=== PATIENT | female | born 1965 | race Hispanic/Latino ===

== ENCOUNTER 2018-08-01 01:51 | Emergency (ER) | payer SELFPAY ==
[2018-08-01] MEDS ORDERED: ONDANSETRON 4 MG/2 ML VIAL ONE (02:27)
[2018-08-01 02:42] LABS: Absolute Lymphocytes (CBC) 1.9 K/uL (0.7-4.9); Absolute Monocytes 0.8 K/uL (0.1-1.3); Absolute Neutrophil 7.1 K/uL (1.8-8.0); Basophils % 0.5 % (0-1.3); Eosinophils % 2.3 % (0-4.4); Hematocrit 45.8 % (36.0-45.0); Lymphocytes % 19.2 % (15.3-44.8); MPV 10.3 fL (7.6-11.3); Monocytes % 7.5 % (3.3-12.3); RBC Red Blood Cell Count 5.41 M/uL (3.86-4.86)
[2018-08-01] MEDS ORDERED: MEPERIDINE HCL 25 MG/0.5 ML ONE (02:44)
[2018-08-01] MEDS ORDERED: NA CHLORIDE 0.9% 500 ML ONE (02:45)
[2018-08-01] MEDS ORDERED: METOCLOPRAMIDE 10 MG/2mL INJ ONE (02:45)
[2018-08-01 02:59] LABS: BUN Blood Urea Nitrogen 20 mg/dL (7-18); Bicarbonate 23 mmol/L (21-32); Glucose Level 223 mg/dL (74-106); Sodium Level 139 mmol/L (136-145); Troponin (Emerg Dept Use Only) < 0.02 ng/mL (0.0-0.045)
--- OUTSIDE RECORDS SUMMARY | 2018-08-01 03:04 | XMS REPORT | Continuity of Care Document ---
:1965 Author Organization Interface Problems Problem Status Onset Classification Date Comments Source Date Reported DIABETES Active 07/09/[address] DIABETES R73.9 Active 07/09/[address] Center Type 2 diabetes 01/02/20 07/14/2018 [facility] mellitus without 18 Medical complications Center Type 2 diabetes 08/18/19 11/16/2017 [facility] mellitus with 18 Medical hyperglycemia Center S/P RENAL [place] Active 07/02/[address] Center Hypertensive 06/30/19 10/03/2017 [facility] chronic kidney 18 Medical disease with Center stage 5 chronic kidney disease or end stage renal disease CLINIC/LABS Active 06/19/[address] Center S/P RENAL LABS Active 04/19/[address] Center LAB Active 06/13/[address] Center ACUTE URI Active 06/06/[address] Center FLU SYMPTOMS Active 06/06/20 [place] [address] [facility] Center FOLLOW UP Active 04/19/20 [facility] DIABETES [facility] Center RENAL POST CLINIC Active 03/23/[address] SBO Active 03/05/20 [place] [address] [facility] Center Discharge 03/12/20 03/15/2015 [facility] Diagnosis: 15 Medical Numbness and Center tingling of right arm SENT BY Active 03/12/20 [place] [address] [facility] RENAL POST LABS Active 03/08/20 [place] [address] [facility] Center PNEUMONIA IN Active 01/30/20 [facility] RENAL TRANSPLANT 15 Medical Center WEAKNESS Active 01/30/20 [place] [address] [facility] Center S/P KIDNEY Active 11/28/19 [facility] TRANSPLANT, 15 Medical ELEVATED CREATINE Center S/P KIDNEY Active 11/28/19 [facility] TRANSPLANT 15 Medical Center LABS SHE WILL Active 10/22/19 [facility] NEED BK, DSA 15 Medical Center LABS Active 06/19/19 [place] [address] [facility] Center COMPLICATIONS OF Active 05/27/20 [facility] KIDNEY TRANSPLANT 14 Medical Center RENAL LABS Active 01/16/20 [place] [address] [facility] Center F/U..POST TRXP Active 11/29/19 [facility] PT..CHRONIC ABD [facility] PAIN Center 789.00 - ABDMNAL Active 11/26/19 [facility] PAIN UN [place] 719.45 - JOINT Active 09/24/19 [facility] PAIN-PELV 14 [place] LABS WITH DSA Active 08/30/19 [place] [address] [facility] Center TRANSPLANT Active 07/25/19 [facility] REJECTION 14 Medical Center POST CLINIC // Active 07/19/19 [facility] A,B,C,FK, 14 Medical UA,UCX,BK,CMV Center FOLLOW UP COAG Active 06/30/19 [place] [address] Medical Center POST CLINIC // Active 06/26/19 [facility] A,B,C,FK, UA,UCX 14 Medical Center HUMORAL Active 06/03/[address] Center S/P RTP , DIOMEDES Active 05/30/[address] Center S/P RENAL Active 05/28/20 [facility] TX///PLEASE CK [facility] IONIZED CALCIUM Center LURD Active 05/20/[address] Center BDDC-NEOPLASM Active 11/28/19 [facility] COLON NOS [facility] Center ABDOMIAL PAIN/ Active 11/07/19 [facility] PRE TRANSPLANT 13 Medical WORK UP Center UNOS LISTING Active 11/07/[address] Center RENAL/DONOT USE Active 10/03/19 [facility] THIS ACCT FOR 13 Medical CHARGES F/ Center PRE TRANSPLANT Active 09/03/19 [facility] VISIT 13 Medical Center RECIPIENT END Active 08/20/19 [facility] STAGE RENAL 13 Medical DISEASE, Center Acute rejection Resolved Problem 07/14/2018 [facility] renal Medical transplant - Center, [facility] BK virus Resolved Problem 07/14/2018 [facility] Chronic kidney Resolved Problem 07/14/2018 [facility] disease (<span Medical ID="[id number]"> Center Confirmed</span>) CMV (<span Resolved Problem 07/14/2018 [place] ID="[id number]"> Medical Confirmed</span>) Center ESRD (<span Resolved Problem 07/14/2018 [place] ID="[id number]"> Medical Confirmed</span>) Center, JAYME Arshad, Transplant Ctr Polycythemia Resolved Problem 07/14/2018 [facility] History of renal Resolved Problem 07/14/2018 [facility] transplant Medical Center, JAYME Arshad, Transplant Ctr HTN - Resolved Problem 07/14/2018 [facility], JAYME Arshad, Transplant Ctr Hyperlipidemia Resolved Problem 07/14/2018 [facility] Obesity Active Problem 07/14/2018 [facility] DM type II Resolved Problem 07/14/2018 [facility] controlled with Medical renal Center manifestation(<sp an ID="[id number]"> Confirmed</span>) Chronic kidney Resolved Problem 06/29/2013 [facility] CMV Resolved Problem 06/20/2013 [facility] DM type II Resolved Problem 06/29/2013 [facility] controlled with Medical renal Center manifestation ESRD Resolved Problem 06/20/2013 [facility] Hyperlipidemia Resolved Problem 01/23/2015 [facility], JAYME Arshad, Transplant Ctr Pancreas Resolved Problem 04/17/2016 [facility], JAYME Arshad, Transplant Ctr Polycythemia Resolved Problem 06/20/2013 [facility] Kidney transplant 11/16/2017 [facility] Type 2 diabetes 10/03/2017 [facility] mellitus with Medical diabetic chronic Center kidney disease End stage renal 10/03/2017 [facility] correction use of 10/03/2017 [facility] insulin [facility] Hyperlipidemia, 11/06/2017 [facility] Secondary 10/03/2017 [facility] polycythemia [facility] Essential 11/06/2017 [facility] Proteinuria, 11/06/2017 [facility] Chronic kidney Resolved Problem 08/28/2013 [facility] disease (<span Medical ID="[id number]"> Center Confirmed</span>) CMV Resolved Problem 01/23/2015 [facility], JAYME Arshad, Transplant Ctr DM type II Resolved Problem 08/28/2013 [facility] controlled with Medical renal Center manifestation(<sp an ID="[id number]"> Confirmed</span>) Polycythemia Resolved Problem 01/23/2015 [facility], JAYME Arshad, Transplant Ctr Final: 08/08/2013 [facility] Complications of Medical Transplanted Center Kidney Final: 08/08/2013 [facility] Kidney Center Disease, Unspecified, with Chronic Kidney Disease Stage I Through Stage IV, or Unspecified Final: Renal 08/08/2013 [facility] Sclerosis, Medical Unspecified Center Final: Diabetes 08/08/2013 [facility] mellitus without Medical mention of Center complication, type II or unspecified type, not stated as uncontrolled Final: Other and 08/08/2013 [facility] Unspecified Medical Hyperlipidemia Center Final: Long-Term 08/08/2013 [facility] Use of Insulin Medical Center Final: Long-Term 08/08/2013 [facility] Use of Steroids Medical Center Final: Long-Term 08/08/2013 [facility] Use of Other Medical Medications Center Chronic kidney Resolved Problem 01/23/2015 [facility] disease (<span [facility] ID="[id number]"> [place] Confirmed</span>) Medical Center DM type II Resolved Problem 01/23/2015 [facility] controlled with Jeancarlos renal [place] manifestation(<sp Medical an Center ID="[id number]"> Confirmed</span>) ESRD Resolved Problem 06/29/2013 [facility] Chronic kidney Resolved Problem 10/11/2013 [facility] disease (<span [facility] ID="[id number]"> Transplant Confirmed</span>) Ctr DM type II Resolved Problem 10/11/2013 [facility] controlled with Jeancarlos renal Transplant manifestation(<sp Ctr an ID="[id number]"> Confirmed</span>) ROUTINE MEDICAL Active [facility] END STAGE RENAL Active [facility] KIDNEY INJURY Active [facility] [place] PRE-PROCEDURE LAB Active [facility] KIDNEY TRANSPLANT Active [facility] COMP ORGAN Active [facility] TRANSPLNT [facility] PNEUMONIA, Active [facility] ORGANISM NOS [facility] COMPL KIDNEY Active [facility] TRANSPLANT [facility] Center DMII WO CMP NT ST Active [facility] UNCR [facility] ILLNESS, Active [facility] UNSPECIFIED [facility] ACUTE UPPER Active [facility] RESPIRATORY Medical INFECTION, UNSPE Center ENCOUNTER FOR Active [facility] PREPROCEDURAL Medical LABORATORY E Center HYPERGLYCEMIA, Active [facility] Medications Medication Details Route Status Patient Ordering Order Source Instructions Provider Date BD Ultra-Fine [place] 1 ea, MISC, 5X Active 07/31[facility] Insulin Pen Day, # 150 ea, 2018 Medical [place] 32G 11 Refill(s), Center 4mm=5/32 inch called to pharmacy Pneumovax 23 0.5 mL, Route: Inactive 07/02[facility] IM, ONCE, 2018 Medical STAT, Start Center date: 07/02/17 9:49:00 DEAL[employer] SAL[employer] REP, Stop date: 07/02/17 9:49:00 [employer] REP carvedilol 12.5 mg 12.5 mg=1 tab, Active [facility] oral tablet PO, BID, # 60 2018 Medical tab, 3 Center Refill(s), Pharmacy: [facility] [id number] losartan 50 mg 50 mg=1 tab, Active [facility] oral tablet PO, Bedtime, # 2018 Medical 30 tab, 3 Center Refill(s), Pharmacy: [facility] [id number] biotin 96756 mcg, PO, Active [facility] Daily, 0 2018 Medical Refill(s) [place] Furosemide 40 MG 40 mg=1 tab, Active [facility] Oral Tablet PO, Daily, 0 2018 Medical Refill(s) Center DME Prescription See Active [facility] Instructions, 2017 Medical MISC, ONCE, Center Mini pen needles, # 360 ea, 1 Refill(s), called to pharmacy simvastatin 20 mg 20 mg=1 tab, Active [facility] oral tablet PO, Bedtime, X 2017 Medical 90 day, # 90 Center tab, 3 Refill(s) simvastatin 20 mg 20 mg=1 tab, Active [facility] oral tablet PO, Bedtime, # 2017 Medical 90 tab, 3 Center Refill(s) gabapentin 100 MG 100 mg=1 cap, Active [facility] Oral Capsule PO, TID, # 270 2017 Medical cap, 3 Center Refill(s) carvedilol 25 mg 25 mg=1 tab, Active [facility] oral tablet PO, Q12H, # 2017 Medical 180 tab, 3 Center Refill(s), Z94.0 3 ML Insulin, See Active [facility] Aspart, Human 100 Instructions, 2017 Medical UNT/ML Pen 11 units Center Injector [NovoLog] before breakfast and lunch and 9 units before dinner, # 15 mL, 11 Refill(s), Pharmacy: [facility] [id number], dispense 34 days worth 3 ML insulin See Active [facility] detemir 100 UNT/ML Instructions, 2017 Medical Prefilled Syringe 34 units qAM Center [Levemir] and 24 units qPM, # 20 mL, 11 Refill(s), Pharmacy: [facility] [id number], 34 days worth 24 HR Nifedipine 90 mg=1 tab, Active [place] 90 MG Extended PO, BID, # 68 2017 Medical Release Tablet tab, 11 Center Refill(s), Pharmacy: [facility] [id number] predniSONE 5 mg 5 mg=1 tab, Active [place] oral tablet PO, Daily, X 2017 Medical 90 day, # 90 Center tab, 3 Refill(s) pantoprazole 40 mg 40 mg=1 tab, Active [place] oral enteric PO, Daily, # 2017 Medical coated tablet 90 tab, 3 Center Refill(s) Hydralazine 25 mg, PO, Active [place] Hydrochloride 25 BID, X 90 day, 2017 Medical MG Oral Tablet # 180 tab, 3 Center Refill(s) 24 HR Nifedipine 90 mg=1 tab, Active [place] 90 MG Extended PO, Daily, # 2016 Medical Release Tablet 90 tab, 0 Center Refill(s) gabapentin 100 MG 100 mg=1 cap, Active [facility] Oral Capsule PO, TID, # 90 2016 Medical cap, 1 Center Refill(s) 24 HR Nifedipine 60 mg=1 tab, Inactive [place] 60 MG Extended PO, Daily, # 2016 Medical Release Tablet 30 tab, 0 Center Refill(s) cephalexin 500 mg 500 mg=1 cap, Active [place] oral capsule PO, [id number], X 2016 Medical 14 day, # 28 Center cap, 0 Refill(s) tacrolimus 0.5 mg See Active [facility] oral capsule Instructions, 2016 Medical 2 cap PO AM 1 Center cap PO PM, # 90 cap, 5 Refill(s), Z94.0 simvastatin 20 mg See Active [facility] oral tablet Instructions, 2016 Medical TAKE 1 TABLET Center BY MOUTH EVERY NIGHT AT BEDTIME, # 30 tab, 11 Refill(s) predniSONE 5 mg 5 mg=1 tab, Active [place] oral tablet PO, Daily, X 2016 Medical 30 day, # 30 Center tab, 11 Refill(s) pantoprazole 40 mg 40 mg=1 tab, Active [place] oral enteric PO, Daily, # 2016 Medical coated tablet 30 tab, 3 Center Refill(s) 24 HR Nifedipine 90 mg=1 tab, Inactive [place] 90 MG Extended PO, Q12H, # 60 2016 Medical Release Tablet tab, 5 Center [Nifediac] Refill(s) Hydralazine 25 mg, PO, Active [place] Hydrochloride 25 BID, # 60 tab, 2016 Medical MG Oral Tablet 0 Refill(s) [place] gabapentin 100 mg, 1 cap, Inactive [place] Route: PO, 2015 Medical Drug form: [place] CAP, Q8H-01, Dosing Weight 89.682, kg, Start date: 06/10/16 10:30:00 [employer] REP, Duration: 30 day, Stop date: 07/10/16 9:00:00 CSTNotes: (Same as: Neurontin) potassium chloride 40 mEq, 2 tab, Inactive [place] 20 mEq oral Route: PO, 2015 Medical tablet, extended Drug form: Center release ERTAB, BID, Dosing Weight 89.682, kg, Start date: 06/10/16 10:30:00 [employer] REP, Duration: 1 day, Stop date: 06/11/16 9:00:00 CSTNotes: (Same as: K-Dur 20) "Do Not Crush" With food and full glass of water Procardia XL 60 mg, 1 tab, Inactive [place] Route: PO, 2015 Medical Drug form: [place] ERTAB, Daily, Dosing Weight 86.364, kg, Start date: 06/10/16 9:00:00 [employer] REP, Duration: 30 day, Stop date: 07/09/16 9:00:00 CSTNotes: (Same as: Adalat CC, Procardia XL) Give on empty stomach. Take 1 hour before or 2 hours after meal; "Avoid grapefruit and grapefruit juice". Do not crush Keflex 250 mg, Route: Inactive [place] PO, Drug form: 2015 Medical CAP, Q12H, [place] Dosing Weight 89.682, kg, Start date: 06/09/16 21:00:00 [employer] REP, Duration: 30 day, Stop date: 07/09/16 9:00:00 [employer] REP Keflex 500 mg, 1 cap, No Longer [place] Route: PO, Active 2015 Medical Drug form: [place] CAP, [id number], Start date: 06/09/16 17:00:00 [employer] REP, Duration: 30 day, Stop date: 07/09/16 5:00:00 CSTNotes: Take on empty stomach. (Same As: Keflex) Nifediac CC 90 mg, 1 tab, Inactive [place] Route: PO, 2016 Medical Drug form: [place] ERTAB, Daily, Dosing Weight 86.364, kg, Start date: 06/09/16 9:00:00 [employer] REP, Duration: 30 day, Stop date: 07/08/16 9:00:00 CSTNotes: (Same as:Adalat CC, Procardia XL) Give on empty stomach. Take 1 hour before or 2 hours after meal; "Avoid grapefruit and grapefruit juice". Do not crush potassium chloride 40 mEq, 2 tab, Inactive [place] 20 mEq oral Route: PO, 2016 Medical tablet, extended Drug form: Center release ERTAB, ONCE, Dosing Weight 89.682, kg, Start date: 06/09/16 8:20:00 [employer] REP, Stop date: 06/09/16 8:20:00 CSTNotes: (Same as: K-Dur 20) "Do Not Crush" With food and full glass of water Isolyte S (PH 7.4) 1,000 mL, No Longer [place] 1000 mL 1,000 mL Rate: 75 Active 2015 Medical ml/hr, Infuse Center over: 13.3 hr, Route: IV, Dosing Weight 89.682 kg, Total Volume: 1,000, Start date: 06/08/16 15:35:00 [employer] REP, Duration: 30 day, Stop date: 07/08/16 15:34:00 CSTNotes: (Same as: Isolyte S PH 7.4) Electrolyte 1,000 mL, Inactive [place] Solution 1000 mL Rate: 75 2016 Medical ml/hr, Infuse Center over: 13.3 hr, Route: IV, Dosing Weight 89.682 kg, Total Volume: 1,000, Start date: 06/08/16 15:16:00 [employer] REP, Duration: 30 day, Stop date: 07/08/16 15:15:00 [employer] REP Azithromycin 250 mg, 1 tab, No Longer [place] Route: PO, Active 2015 Medical Drug form: [place] TAB, [id number], Dosing Weight 49.545, kg, Start date: 06/08/16 11:00:00 [employer] REP, Duration: 4 day, Stop date: 06/11/16 11:00:00 CSTNotes: Take 1 hour before or 2 hours after meals. (Same As: Zithromax) Levemir 15 unit, 0.15 No Longer [place] mL, Route: Active 2015 Medical SUB-Q, [facility], Dosing Weight 89.682, kg, Start date: 06/08/16 9:00:00 [employer] REP, Duration: 30 day, Stop date: 07/07/16 21:00:00 CSTNotes: Same as Levemir Do not hold insulin without contacting prescriber WASTE: F/P - Black; E - Municipal Trash Bin "single patient use only" Simvastatin 20 mg, 1 tab, No Longer [place] Route: PO, Active 2015 Medical Drug form: [place] TAB, Bedtime, Dosing Weight 86.364, kg, Start date: 06/07/16 21:00:00 [employer] SAL[employer] REP, Duration: 30 day, Stop date: 07/06/16 21:00:00 CSTNotes: (Same as: Zocor) Tylenol 650 mg, 20.3 Inactive [place] mL, Route: PO, 2015 Medical Drug form: [place] LIQ, ONCE, Dosing Weight 89.682, kg, Start date: 06/07/16 20:15:00 [employer] REP, Stop date: 06/07/16 20:15:00 CSTNotes: Max acetaminophen= 4000mg/day (4 gm/day). (Same as: Tylenol) Prograf 0.5 mg, 1 cap, No Longer [place] Route: PO, Active 2015 Medical Drug form: [place] CAP, QPM, Start date: 06/07/16 20:00:00 DEAL[employer] SAL[employer] REP, Duration: 30 day, Stop date: 07/06/16 20:00:00 CSTNotes: Avoid grapefruit and grapefruit juice. (Same As: Prograf) potassium 15 mmol, 5 mL, Inactive [place] phosphate + sodium Route: IVPB, 2015 Medical chloride 0.9% INJ ONCE, Dosing Center 250 mL Weight 89.682, kg, Start date: 06/07/16 18:39:00 DEAL[employer] REP, Stop date: 06/07/16 18:39:00 CSTNotes: (Same as: K Phosphate.) 1 mMol phoshate has 1.47 mEq potassium Infuse over 4 hours Albuterol 0.833 3 ml, Route: No Longer [place] MG/ML / NEB, Drug Active 2015 Medical Ipratropium Form: SOLN, [place] 0.167 Dosing Weight MG/ML Inhalant 89.682, kg, Solution PRN, PRN Respiratory Protocol, Start date: 06/07/16 14:26:00 [employer] REP, Duration: 30 day, Stop date: 07/07/16 14:25:00 CSTNotes: (Same as: Duoneb) Tamiflu 30 mg, 1 cap, No Longer [place] Route: PO, Active 2015 Medical Drug form: Center CAP, [id number], Dosing Weight 49.545, kg, CrCl > 10 to 30 ml/hr, Start date: 06/07/16 11:00:00 [employer] REP, Duration: 5 day, Stop date: 06/11/16 11:00:00 CSTNotes: Same as: Tamilfu Take with Food Azithromycin 500 mg, 2 tab, Inactive [place] Route: PO, 2015 Medical Drug form: Center TAB, ONCE, Dosing Weight 49.545, kg, Start date: 06/07/16 10:24:00 DEAL[employer] SALES REP, Stop date: 06/07/16 10:24:00 CSTNotes: Take 1 hour before or 2 hours after meals. (Same As: Zithromax) Tamiflu 30 mg, Route: Inactive [facility] PO, Drug form: 2016 Medical CAP, [id number], Center Dosing Weight 49.545, kg, CrCl > 10 to 30 ml/hr, Start date: 06/07/16 10:00:00 DEALER SALES REP, Duration: 5 day, Stop date: 06/11/16 10:00:00 DEALER SALES REP Dextrose 50% 12.5 gm, 25 No Longer [place] Syringe mL, Route: Active 2015 Medical IVP, Drug Center Form: INJ, Dosing Weight 49.545, kg, PRN, PRN Blood Glucose Results, Start date: 06/07/16 9:39:00 [employer] SAL[employer] REP, Duration: 30 day, Stop date: 07/07/16 9:38:00 DEAL[employer] SALES REP Insulin, Aspart, 6 unit, 0.06 No Longer [place] Human mL, Route: Active 2015 Medical SUB-Q, Drug Center form: SOLN, TID-Before Meals, Dosing Weight 49.545, kg, PRN Blood Glucose Results, Start date: 06/07/16 9:39:00 DEALER SALES REP, Duration: 30 day, Stop date: 07/07/16 9:38:00 CSTNotes: Roll in palms of hands gently; Do not shake vigorously. (Same as: NovoLOG) "single patient use only" WASTE: F/P - Black; E - Municipal Trash Bin Stable for 28 days at room temperature. Expires in days from Date Glucagon 1 mg, Route: No Longer [place] IM, Drug form: Active 2015 Medical PDR/INJ, PRN, Center Dosing Weight 49.545, kg, PRN Blood Glucose Results, Start date: 06/07/16 9:39:00 DEALER SALES REP, Duration: 30 day, Stop date: 07/07/16 9:38:00 DEALER SALES REP Vitamin D3 2,000 No Longer [place] IntlUnit, 1 Active 2015 Medical cap, Route: [place] PO, Drug form: CAP, Daily, Dosing Weight 86.364, kg, Start date: 06/07/16 9:00:00 DEALER SALES REP, Stop date: 07/06/16 9:00:00 CSTNotes: Same as: Vitamin D3 carvedilol 25 mg, 1 tab, No Longer [place] Route: PO, Active 2015 Medical Drug form: Center TAB, Q12H, Dosing Weight 86.364, kg, Start date: 06/07/16 9:00:00 DEALER SALES REP, Duration: 30 day, Stop date: 07/06/16 21:00:00 CSTNotes: Give with food. (Same As: Coreg) Zosyn 3.375 gm, No Longer [place] Route: IVPB, Active 2015 Medical Drug form: [place] PDR/INJ, [id number], Start date: 06/07/16 9:00:00 DEALER SALES REP, Duration: 30 day, Stop date: 07/07/16 1:00:00 CSTNotes: (Same as: Zosyn) Dosing based on Piperacillin component MEDICATION WASTE Product Size: 3375 mg Product Wasted: ___ mg Prednisone 5 mg, 1 tab, No Longer [place] Route: PO, Active 2015 Medical Drug form: [place] TAB, Daily, Dosing Weight 86.364, kg, Start date: 06/07/16 9:00:00 DEALER SALES REP, Duration: 30 day, Stop date: 07/06/16 9:00:00 CSTNotes: Take with food. pantoprazole 40 mg, 1 tab, No Longer [place] Route: PO, Active 2015 Medical Drug form: [place] ECTAB, Before Breakfast, Dosing Weight 86.364, kg, Start date: 06/07/16 9:00:00 DEALER SALES REP, Stop date: 07/06/16 7:30:00 CSTNotes: Tablet should not be chewed or crushed. (Same as: Protonix) Tacrolimus 1 mg, 2 cap, No Longer [place] Route: PO, Active 2015 Medical Drug form: [place] CAP, QAM, Dosing Weight 86.364, kg, Start date: 06/07/16 9:00:00 DEALER SALES REP, Duration: 30 day, Stop date: 07/07/16 8:00:00 CSTNotes: Avoid grapefruit and grapefruit juice. (Same As: Prograf) Nifediac CC 90 mg, 1 tab, No Longer [place] Route: PO, Active 2015 Medical Drug form: [place] ERTAB, Q12H, Dosing Weight 86.364, kg, Start date: 06/07/16 9:00:00 DEALER SALES REP, Duration: 30 day, Stop date: 07/06/16 21:00:00 CSTNotes: (Same as:Adalat CC, Procardia XL) Give on empty stomach. Take 1 hour before or 2 hours after meal; "Avoid grapefruit and grapefruit juice". Do not crush Sodium Chloride 500 mL, 500 Inactive [place] 0.154 MEQ/ML ml/hr, Infuse 2016 Medical Injectable Over: 1 hr, [place] Solution Route: IV, 500, Drug form: INJ, ONCE, Priority: STAT, Dosing Weight 86.364 kg, Start date: 06/07/16 0:39:00 DEALER SALES REP, Duration: 1 doses or times, Stop date: 06/07/16 0:39:00 DEALER SALES REP sodium chloride 1,000 mL, No Longer [facility] 0.9% 1000 ml INJ Rate: 75 Active 2015 Medical 1,000 mL ml/hr, Infuse Center over: 13.3 hr, Route: IV, Dosing Weight 86.364 kg, Total Volume: 1,000, Start date: 06/07/16 0:39:00 DEALER SALES REP, Duration: 30 day, Stop date: 07/07/16 0:38:00 DEALER SALES REP heparin sodium, 5,000 unit, 1 No Longer [place] porcine 2500 mL, Route: Active 2015 Medical UNT/ML Injectable SUB-Q, Drug [place] Solution form: INJ, Q8H, Dosing Weight 86.364, kg, Start date: 06/07/16 0:00:00 DEALER SALES REP, Duration: 30 day, Stop date: 07/06/16 16:00:00 CSTNotes: porcine heparin Ondansetron 4 mg, 2 mL, No Longer [place] Route: IVP, Active 2015 Medical Drug form: Center INJ, Q6H, Dosing Weight 86.364, kg, PRN Nausea & Vomiting, Start date: 06/06/16 21:23:00 DEALER SALES REP, Duration: 30 day, Stop date: 07/06/16 21:22:00 CSTNotes: (Same as: Zofran) MEDICATION WASTE Product Size: 4 mg Product Wasted: ___ mg Docusate 100 mg, 1 cap, No Longer [facility] Route: PO, Active 2015 Medical Drug form: Center CAP, BID, Dosing Weight 86.364, kg, PRN Constipation, Start date: 06/06/16 21:23:00 DEALER SALES REP, Duration: 30 day, Stop date: 07/06/16 21:22:00 CSTNotes: (Same as: Colace) (Do Not Crush) Ondansetron 4 mg, Route: Inactive [place] IVP, Drug 2015 Medical form: INJ, Center ONCE, Dosing Weight 86.364, kg, Priority: STAT, Start date: 06/06/16 19:01:00 DEALER SALES REP, Stop date: 06/06/16 19:01:00 DEALER SALES REP Sodium Chloride 500 mL, 500 Inactive [place] 0.154 MEQ/ML ml/hr, Infuse 2016 Medical Injectable Over: 1 hr, [place] Solution Route: IV, ONCE, Priority: STAT, Dosing Weight 86.364 kg, Start date: 06/06/16 18:45:00 DEALER SALES REP, Duration: 1 doses or times, Stop date: 06/06/16 18:45:00 DEALER SALES REP Tylenol 650 mg, Route: Inactive [place] PO, Drug form: 2016 Medical TAB, ONCE, Center Dosing Weight 86.364, kg, Priority: STAT, Start date: 06/06/16 18:45:00 DEALER SALES REP, Stop date: 06/06/16 18:45:00 DEALER SALES REP Contour Next test Contour Next Active [facility] strips test strips, 2016 [facility] See [place] Instructions, Use to check blood sugar up to 4x/day as directed, # 400 ea, Refill(s) 4, called to pharmacy Contour Next Blood test BG up to Active [facility] Glucose Test 4 times daily, 2016 [facility] Strips MISC, QID, [facility] 300 strip, Insulin dependent, Does not use insulin pump, Last DM eval date 03/30/16, 1 Refill(s), called to pharmacy tramadol 50 mg=1 tab, Active [place] hydrochloride 50 PO, Q6H, PRN 2016 Medical MG Oral Tablet Pain Center 3 ML insulin 10 unit, Active [place] detemir 100 UNT/ML SUB-Q, Q12H, # 2016 Medical Prefilled Syringe 3 mL, 3 Center [Levemir] Refill(s), other 3 ML Insulin, 5 unit, SUB-Q, Active [place] Aspart, Human 100 TID-Before 2016 Medical UNT/ML Pen Meals, # 10 Center Injector [NovoLog] mL, 6 Refill(s), other Metoclopramide 10 10 mg=1 tab, Active [place] MG Oral Tablet PO, Before 2016 Medical [Reglan] Meals & Center Bedtime, X 30 day, # 120 tab, 2 Refill(s), Pharmacy: [facility] [id number] Docusate Sodium 100 mg=1 cap, Active [place] 100 MG Oral PO, BID, # 60 2016 Medical Capsule [Colace] cap, 1 Center Refill(s), Pharmacy: [facility] [id number] pantoprazole 40 mg 40 mg=1 tab, Active [facility] oral enteric PO, Daily, # 2016 Medical coated tablet 30 tab, 3 Center Refill(s), Pharmacy: [facility] [id number] Senna 8.6 mg oral 8.6 mg=1 tab, Active [facility] tablet PO, BID, Hold 2016 Medical for diarrhea, Center X 14 day, # 28 tab, 0 Refill(s), Pharmacy: [facility] [id number] tramadol 50 mg, 1 tab, Inactive [facility] hydrochloride 50 Route: PO, 2016 Medical MG Oral Tablet Drug form: Center TAB, Q6H, Dosing Weight 84.091, kg, PRN Pain Score 4-6, Start date: 03/10/16 10:01:00 CDT, Duration: 30 day, Stop date: 04/09/16 10:00:00 CDTNotes: Not to exceed 400mg/day. (Same As: Ultram) Prednisone 5 mg, 1 tab, Inactive [facility] Route: PO, 2015 Medical Drug form: Center TAB, Daily, Dosing Weight 86.364, kg, Start date: 03/10/16 9:00:00 CDT, Duration: 30 day, Stop date: 04/08/16 9:00:00 CDTNotes: Take with food. Amlodipine 10 mg, Route: No Longer [facility] PO, Drug form: Active 2015 Medical TAB, Daily, Center Dosing Weight 86.364, kg, Start date: 03/10/16 9:00:00 CDT, Duration: 30 day, Stop date: 04/08/16 9:00:00 CDT Levemir 10 unit, 0.1 No Longer [facility] mL, Route: Active 2015 Medical SUB-Q, Drug Center form: SOLN, Q12H, Dosing Weight 86.3, kg, Start date: 03/09/16 21:00:00 CDT, Duration: 30 day, Stop date: 04/08/16 9:00:00 CDTNotes: Same as Levemir 24 HR Nifedipine 90 mg, Route: Inactive [place] 90 MG Extended PO, Drug form: 2016 Medical Release Tablet ERTAB, Q12H, Center Dosing Weight 86.3, kg, Start date: 03/09/16 21:00:00 CDT, Duration: 30 day, Stop date: 04/08/16 9:00:00 CDT 24 HR Nifedipine 90 mg, 1 tab, No Longer [place] 90 MG Extended Route: PO, Active 2015 Medical Release Tablet Drug form: [place] ERTAB, Q12H, Dosing Weight 86.3, kg, Start date: 03/09/16 20:00:00 CDT, Duration: 30 day, Stop date: 04/08/16 8:00:00 CDTNotes: (Same as:Adalat CC, Procardia XL) Give on empty stomach. Take 1 hour before or 2 hours after meal; "Avoid grapefruit and grapefruit juice". Do not crush carvedilol 25 mg, 1 tab, No Longer [place] Route: PO, Active 2015 Medical Drug form: [place] TAB, Q12H, Dosing Weight 86.364, kg, Start date: 03/09/16 20:00:00 CDT, Duration: 30 day, Stop date: 04/08/16 8:00:00 CDTNotes: Give with food. (Same As: Coreg) Tacrolimus 1 mg, 1 cap, No Longer [place] Route: PO, Active 2015 Medical Drug form: [place] CAP, [id number], Dosing Weight 86.3, kg, Start date: 03/09/16 20:00:00 CDT, Duration: 30 day, Stop date: 04/08/16 8:00:00 CDTNotes: Avoid grapefruit and grapefruit juice. (Same As: Prograf) Insulin, Aspart, 6 unit, 0.06 No Longer [place] Human mL, Route: Active 2015 Medical SUB-Q, Drug Center form: SOLN, TID-Before Meals, Dosing Weight 86.3, kg, PRN Blood Glucose Results, Start date: 03/09/16 17:00:00 CDT, Duration: 30 day, Stop date: 04/08/16 16:59:00 CDTNotes: Roll in palms of hands gently; Do not shake vigorously. (Same as: NovoLOG) "single patient use only" WASTE: F/P - Black; E - Municipal Trash Bin Stable for 28 days at room temperature. Expires in days from Date Glucagon 1 mg, Route: No Longer [place] IM, Drug form: Active 2015 Medical PDR/INJ, PRN, Center Dosing Weight 86.3, kg, PRN Blood Glucose Results, Start date: 03/09/16 17:00:00 CDT, Duration: 30 day, Stop date: 04/08/16 16:59:00 CDT Dextrose 50% 25 gm, 50 mL, No Longer [place] Syringe Route: IVP, Active 2015 Medical Drug Form: Center INJ, Dosing Weight 86.3, kg, PRN, PRN Blood Glucose Results, Start date: 03/09/16 17:00:00 CDT, Duration: 30 day, Stop date: 04/08/16 16:59:00 CDT Protonix 40 mg, 1 tab, No Longer [facility] Route: PO, Active 2015 Medical Drug form: Center ECTAB, Before Dinner, Dosing Weight 86.3, kg, Start date: 03/09/16 16:30:00 CDT, Duration: 30 day, Stop date: 04/07/16 16:30:00 CDTNotes: (Same as: Protonix) Insulin, Aspart, 3 unit, 0.03 No Longer [place] Human mL, Route: Active 2015 Medical SUB-Q, Drug Center form: SOLN, TID-Before Meals, Dosing Weight 86.3, kg, Start date: 03/09/16 16:30:00 CDT, Stop date: 04/08/16 11:30:00 CDTNotes: Roll in palms of hands gently; Do not shake vigorously. (Same as: NovoLOG) "single patient use only" WASTE: F/P - Black; E - Municipal Trash Bin Stable for 28 days at room temperature. Expires in days from Date Neutra-Phos 1 pkt, Route: No Longer [place] PO, Drug Form: Active 2015 Medical PDR/REC, Center Dosing Weight 86.364, kg, TID-Before Meals, Start date: 03/09/16 11:30:00 CDT, Duration: 3 day, Stop date: 03/12/16 7:30:00 CDTNotes: (Same as: Neutra-Phos) Each 1.25 gm pkt has 250mg phosphorous. Mix w/2.5oz water and stir. Reglan 10 mg, 10 mL, No Longer [place] Route: PO, Active 2015 Medical Drug form: [place] SYRP, TID-Before Meals, Dosing Weight 86.364, kg, Start date: 03/09/16 11:30:00 CDT, Duration: 30 day, Stop date: 04/08/16 7:30:00 CDTNotes: (Same as: Reglan) Take 30 min before meals Reglan 10 mg, 10 mL, No Longer [place] Route: NG, Active 2015 Medical Drug form: [place] SYRP, Q6H, Dosing Weight 86.364, kg, Priority: NOW, Start date: 03/08/16 10:08:00 CDT, Duration: 30 day, Stop date: 04/07/16 4:30:00 CDTNotes: (Same as: Reglan) Take 30 min before meals Amlodipine 10 mg, 1 tab, No Longer [place] Route: NG, Active 2015 Medical Drug form: Center TAB, Daily, Dosing Weight 86.364, kg, Priority: NOW, Start date: 03/08/16 10:06:00 CDT, Stop date: 04/07/16 9:00:00 CDT Prednisone 5 mg, 1 tab, No Longer [place] Route: NG, Active 2015 Medical Drug form: Center TAB, Daily, Dosing Weight 86.364, kg, Start date: 03/08/16 9:00:00 CDT, Duration: 30 day, Stop date: 04/06/16 9:00:00 CDTNotes: Take with food. phenol 1 spray, No Longer [place] Route: TOP, Active 2015 Medical BID, Drug Center form: SHAWN, PRN Sore Throat, Start date: 03/08/16 8:36:00 CDT, Duration: 30 day, Stop date: 04/07/16 8:35:00 CDTNotes: Chloraseptic [place] (Same as: Chloraseptic, Sore Throat [place]) WASTE: F/P - Black; E - Municipal Trash Bin Neutra-Phos 1 pkt, Route: No Longer [place] NG, Drug Form: Active 2015 Medical PDR/REC, Center Dosing Weight 86.364, kg, TID-Before Meals, NOW, Start date: 03/08/16 6:48:00 CDT, Stop date: 03/10/16 16:30:00 CDTNotes: (Same as: Neutra-Phos) Each 1.25 gm pkt has 250mg phosphorous. Mix w/2.5oz water and stir. potassium 18 mmol, 6 mL, Inactive [place] phosphate + sodium Route: IVPB, 2015 Medical chloride 0.9% INJ ONCE, Dosing Center 250 mL Weight 86.364, kg, Priority: NOW, Start date: 03/08/16 6:48:00 CDT, Stop date: 03/08/16 6:48:00 CDTNotes: (Same as: K Phosphate.) 1 mMol phoshate has 1.47 mEq potassium Infuse over 4 hours Hydralazine 20 mg, 1 mL, No Longer [place] Route: IV, Active 2015 Medical Drug form: [place] INJ, Q4H, Dosing Weight 86.364, kg, PRN Hypertension, Start date: 03/08/16 3:02:00 CDT, Duration: 30 day, Stop date: 04/07/16 3:01:00 CDTNotes: (Same as: Apresoline) Push over 5 minutes Tacrolimus 1 mg, 1 mL, No Longer [place] Route: NG, Active 2015 Medical Drug form: [place] SUSP, [id number], Dosing Weight 86.364, kg, Start date: 03/07/16 20:00:00 CDT, Duration: 30 day, Stop date: 04/06/16 8:00:00 CDTNotes: Do not refrigerate. Shake well. (Same As: Prograf) "Avoid grapefruit and grapefruit juice" Compounded Product - formulation not commercially available carvedilol 25 mg, 1 tab, No Longer [place] Route: NG, Active 2015 Medical Drug form: Center TAB, Q12H, Dosing Weight 86.364, kg, Start date: 03/07/16 20:00:00 CDT, Duration: 30 day, Stop date: 04/06/16 8:00:00 CDTNotes: Give with food. (Same As: Coreg) Insulin regular 6 unit, 0.06 No Longer [place] mL, Route: Active 2015 Medical SUB-Q, Drug Center form: SOLN, Sliding Scale, Dosing Weight 86.364, kg, PRN Blood Glucose Results, Start date: 03/07/16 13:20:00 CDT, Duration: 30 day, Stop date: 04/06/16 13:19:00 CDTNotes: (Same as: Humulin R) Roll in palms of hands gently; Do not shake vigorously. "single patient use only" (Restricted to patients requiring a dose > 60 units) WASTE: F/P - Black; E - Municipal Trash Bin Stable for 28 days at room temperature Expires in days from Date Glucagon 1 mg, Route: Inactive [place] IM, PRN, 2015 Medical Dosing Weight Center 86.364, kg, PRN Blood Glucose Results, Start date: 03/07/16 13:20:00 CDT, Duration: 30 day, Stop date: 04/06/16 13:19:00 CDT Dextrose 50% 25 gm, 50 mL, No Longer [facility] Syringe Route: IVP, Active 2015 Medical Drug Form: [place] INJ, Dosing Weight 86.364, kg, PRN, PRN Blood Glucose Results, Start date: 03/07/16 13:20:00 CDT, Duration: 30 day, Stop date: 04/06/16 13:19:00 CDT lansoprazole 15 mg, 5 mL, No Longer [facility] Route: NG, Active 2015 Medical Drug form: [place] SUSP, BID-Before Meals, Dosing Weight 86.364, kg, Priority: NOW, Start date: 03/07/16 13:08:00 CDT, Duration: 30 day, Stop date: 04/06/16 7:30:00 CDTNotes: Take 1 hour before or 2 hours after meal; Expires in 14 days. Shake well before use. (Same as:Prevacid) Compounded Product - formulation not commercially available Isolyte S (PH 7.4) 1,000 mL, No Longer [place] 1000 mL 1,000 mL Rate: 100 Active 2016 Medical ml/hr, Infuse Center over: 10 hr, Route: IV, Dosing Weight 86.364 kg, Total Volume: 1,000, Start date: 03/07/16 11:16:00 CDT, Duration: 30 day, Stop date: 04/06/16 11:15:00 CDTNotes: (Same as: Isolyte S PH 7.4) Dilaudid 0.2 mg, 0.1 No Longer [place] mL, Route: Active 2015 Medical IVP, Drug Center form: INJ, Q4H, Dosing Weight 86.364, kg, PRN Pain Score 7-10, Start date: 03/07/16 10:14:00 CDT, Duration: 30 day, Stop date: 04/06/16 10:13:00 CDTNotes: (Same as: Dilaudid) Glucagon 1 mg, Route: No Longer [facility] IM, Drug form: Active 2015 Medical PDR/INJ, PRN, Center Dosing Weight 86.364, kg, PRN Blood Glucose Results, Start date: 03/06/16 23:41:00 CDT, Duration: 30 day, Stop date: 04/05/16 23:40:00 CDT Dextrose 50% 25 gm, 50 mL, No Longer [facility] Syringe Route: IVP, Active 2015 Medical Drug Form: Center INJ, Dosing Weight 86.364, kg, PRN, PRN Blood Glucose Results, Start date: 03/06/16 23:41:00 CDT, Duration: 30 day, Stop date: 04/05/16 23:40:00 CDT Insulin, Aspart, 10 unit, 0.1 No Longer [facility] Human mL, Route: Active 2015 Medical SUB-Q, Drug Center form: SOLN, Sliding Scale, Dosing Weight 86.364, kg, PRN Blood Glucose Results, Start date: 03/06/16 23:41:00 CDT, Duration: 30 day, Stop date: 04/05/16 23:40:00 CDTNotes: Roll in palms of hands gently; Do not shake vigorously. (Same as: NovoLOG) "single patient use only" WASTE: F/P - Black; E - Municipal Trash Bin Stable for 28 days at room temperature. Expires in days from Date Tacrolimus 0.5 mg, 1 cap, Inactive [facility] Route: SL, 2015 Medical Drug form: [place] CAP, ONCE, Dosing Weight 86.364, kg, Priority: NOW, Start date: 03/06/16 21:30:00 CDT, Stop date: 03/06/16 21:30:00 CDTNotes: Avoid grapefruit and grapefruit juice. (Same As: Prograf) methylPREDNISolone 10 mg, 0.16 Inactive [place] SODium SUCCinate mL, Route: IV, 2015 Medical Drug form: [place] INJ, ONCE, Dosing Weight 86.364, kg, Priority: NOW, Start date: 03/06/16 21:30:00 CDT, Stop date: 03/06/16 21:30:00 CDTNotes: (Same as:Solu-MEDROL , A-Methapred) Saline Flush 0.9% 10 ml, Route: Inactive [facility] IVP, Drug 2015 Medical Form: INJ, Center Dosing Weight 86.364, kg, Q12H, Start date: 03/06/16 21:00:00 CDT, Duration: 30 day, Stop date: 04/05/16 9:00:00 CDT Docusate 100 mg, Route: Inactive [facility] PO, Drug form: 2016 Medical CAP, Q12H, Center Dosing Weight 86.364, kg, Start date: 03/06/16 21:00:00 CDT, Duration: 30 day, Stop date: 04/05/16 9:00:00 CDT Nifediac CC 90 mg, Route: No Longer [facility] PO, Drug form: Active 2015 Medical ERTAB, Q12H, Center Dosing Weight 86.364, kg, Start date: 03/06/16 21:00:00 CDT, Duration: 30 day, Stop date: 04/05/16 9:00:00 CDT Protonix 40 mg, Route: Inactive [facility] IV, BID, 2015 Medical Dosing Weight Center 86.364, kg, Start date: 03/06/16 17:00:00 CDT, Duration: 30 day, Stop date: 04/05/16 9:00:00 CDT Ancef 1 gm, Route: Inactive [facility] IVPB, [id number], 2016 Medical Dosing Weight Center 86.364, kg, Start date: 03/06/16 17:00:00 CDT, Duration: 3 doses or times, Stop date: 03/07/16 9:00:00 CDT Ondansetron 4 mg, 2 mL, Inactive 03/06[facility] Route: IVP, 2015 Medical Drug form: Center INJ, ONCE, Dosing Weight 86.364, kg, PRN Nausea & Vomiting, Start date: 03/06/16 16:41:00 CDTNotes: (Same as: Zofran) MEDICATION WASTE Product Size: 4 mg Product Wasted: ___ mg Promethazine 6.25 mg, 0.25 Inactive [facility] mL, Route: 2015 Medical IVPB, ONCE, Center Dosing Weight 86.364, kg, PRN Nausea & Vomiting, Start date: 03/06/16 16:41:00 CDTNotes: Do not give IV push. (Same as: Phenergan) Hydromorphone 0.2 mg, 0.1 Inactive [facility] mL, Route: 2015 Medical IVP, Drug Center form: INJ, Q5Min, Dosing Weight 86.364, kg, PRN Pain Score 7-10, Start date: 03/06/16 16:41:00 CDT, Duration: 4 doses or times, Stop date: Limited # of timesNotes: (Same as: Dilaudid) Labetalol 10 mg, 2 mL, Inactive 03/06[facility] Route: IVP, 2015 Medical Drug form: Center INJ, Q5Min, Dosing Weight 86.364, kg, PRN Elevated BP, Start date: 03/06/16 16:41:00 CDT, Duration: 5 doses or times, Stop date: Limited # of times Naloxone 0.4 mg, 1 mL, Inactive 03/06[facility] Route: IVP2015 Medical Drug form: Center INJ, Q2MIN, Dosing Weight 86.364, kg, PRN Narcotic Reversal, Start date: 03/06/16 16:41:00 CDT, Duration: 8 doses or times, Stop date: Limited # of timesNotes: Same as Narcan Flumazenil 0.2 mg, 2 mL, Inactive [facility] Route: IVP, 2015 Medical Drug form: Center INJ, PRN, Dosing Weight 86.364, kg, PRN Benzodiazepine Reversal, Initial dose, Start date: 03/06/16 16:41:00 CDT, Duration: 30 day, Stop date: 04/05/16 16:40:00 CDTNotes: (Same as: Romazicon) ANES Enalaprilat 0.625 mg, 0.5 Inactive [place] mL, Route: 2015 Medical IVP, Drug Center form: INJ, Q5Min, Dosing Weight 86.364, kg, PRN Elevated BP, Start date: 03/06/16 16:41:00 CDT, Duration: 4 doses or times, Stop date: Limited # of timesNotes: (Same as: Vasotec-IV) Hydralazine 10 mg, 0.5 mL, Inactive [place] Route: IVP, 2015 Medical Drug form: Center INJ, Q20Min, Dosing Weight 86.364, kg, PRN Elevated BP, Start date: 03/06/16 16:41:00 CDT, Duration: 2 doses or times, Stop date: Limited # of timesNotes: (Same as: Apresoline) Push over 5 minutes Hydromorphone 15 mg, 30 mL, Inactive [facility] Route: IV, 2015 Medical Initial Center Loading Dose: 0.4mg, RN ORTHOPAEDIC Dose: 0.2 mg, RN ORTHOPAEDIC Lockout: 10 minutes, Continuous Basal Rate: 0 mg, 4 Hour Limit (In MG): 6, Continuous, Start date: 03/06/16 16:30:00 CDT, Duration: 30 day, Stop date: 04/05/16 16:29:00 CDT Sodium Chloride 250 mL, Rate: Inactive [place] 0.154 MEQ/ML 50 2015 Medical Injectable microgram/hr, Center Solution Route: IV, Dosing Weight 86.364 kg, Total Volume: 250, Start date: 03/06/16 16:13:00 CDT, Duration: 30 day, Stop date: 04/05/16 16:12:00 CDT Naloxone 0.04 mg, Inactive 03/06[facility] Route: IVP, 2016 Medical Q2MIN, Dosing Center Weight 86.364, kg, PRN Narcotic Reversal, Start date: 03/06/16 16:13:00 CDT, Duration: 30 day, Stop date: 04/05/16 16:12:00 CDT Saline Flush 0.9% 10 ml, Route: Inactive 03/06[facility] IVP, Drug 2016 Medical Form: INJ, Center Dosing Weight 86.364, kg, PRN, PRN Line Flush, Start date: 03/06/16 16:11:00 CDT, Duration: 30 day, Stop date: 04/05/16 16:10:00 CDT Ondansetron 4 mg, Route: Inactive 03/06[facility] IVP, Q8H, 2016 Medical Dosing Weight Center 86.364, kg, PRN Nausea & Vomiting, Start date: 03/06/16 16:11:00 CDT, Duration: 30 day, Stop date: 04/05/16 16:10:00 CDT Bisacodyl 10 mg, Route: Inactive 03/06[facility] HI, Drug form: 2016 Medical SUPP, Daily, Center Dosing Weight 86.364, kg, PRN Other -See Comment, Start date: 03/06/16 16:11:00 CDT, Duration: 30 day, Stop date: 04/05/16 16:10:00 CDT Ancef 2 gm, Route: Inactive 03/06[facility] IVPB, ONCE, 2016 Medical Dosing Weight Center 86.364, kg, Start date: 03/06/16 16:00:00 CDT, Duration: 1 doses or times, Stop date: 03/06/16 16:00:00 CDT, Surgical Prophylaxis Only; For patients Metoprolol 5 mg, 5 mL, Inactive 03/06[facility] Route: IV, 2015 Medical Drug form: Center INJ, ONCE, Dosing Weight 86.364, kg, Start date: 03/06/16 12:30:00 CDT, Stop date: 03/06/16 12:30:00 CDTNotes: (Same as: Lopressor) Push over 2 minutes Hydralazine 25 mg, 1 tab, No Longer [place] Route: PO, Active 2015 Medical Drug form: [place] TAB, BID, Dosing Weight 86.364, kg, Start date: 03/06/16 10:37:00 CDT, Duration: 30 day, Stop date: 04/05/16 8:00:00 CDTNotes: (Same as: Apresoline) May interfere w/enteral feedings Take With Food. carvedilol 25 mg, 1 tab, No Longer [facility] Route: PO, Active 2015 Medical Drug form: Center TAB, Q12H, Dosing Weight 86.364, kg, Start date: 03/06/16 10:34:00 CDT, Duration: 30 day, Stop date: 04/05/16 8:00:00 CDTNotes: Give with food. (Same As: Coreg) Phenergan 12.5 mg, 0.5 No Longer [place] mL, Route: Active 2015 Medical IVPB, Drug Center form: INJ, Q4H, Dosing Weight 86.364, kg, PRN Nausea & Vomiting, Start date: 03/06/16 10:13:00 CDT, Duration: 30 day, Stop date: 04/05/16 10:12:00 CDTNotes: Do not give IV push. (Same as: Phenergan) Prednisone 5 mg, 1 tab, No Longer [facility] Route: PO, Active 2015 Medical Drug form: Center TAB, Daily, Dosing Weight 86.364, kg, Priority: NOW, Start date: 03/06/16 9:41:00 CDT, Duration: 30 day, Stop date: 04/05/16 9:00:00 CDTNotes: Take with food. Tacrolimus 1 mg, 1 mL, No Longer [facility] Route: PO, Active 2015 Medical Drug form: [place] SUSP, [id number], Dosing Weight 86.364, kg, Priority: NOW, Start date: 03/06/16 9:39:00 CDT, Duration: 30 day, Stop date: 04/05/16 8:00:00 CDTNotes: Do not refrigerate. Shake well. (Same As: Prograf) "Avoid grapefruit and grapefruit juice" Compounded Product - formulation not commercially available leflunomide 40 mg, 2 tab, No Longer [place] Route: PO, Active 2015 Medical Drug form: Center TAB, Daily, Dosing Weight 86.364, kg, Priority: NOW, Start date: 03/06/16 9:39:00 CDT, Duration: 30 day, Stop date: 04/05/16 9:00:00 CDTNotes: Non-Formulary Drug (Same as:Arava) pneumococcal 0.5 mL, Route: Inactive [place] capsular IM, Drug Form: 2015 Medical polysaccharide INJ, Daily, [place] type 1 vaccine / Start date: pneumococcal 03/06/16 capsular 9:00:00 CDT, polysaccharide Duration: 1 type 10A vaccine / doses or pneumococcal times, Stop capsular date: 03/06/16 polysaccharide 9:00:00 type 11A vaccine / CDTNotes: pneumococcal (Same as: capsular Pneumovax 23) polysaccharide Refrigerate type 12F vaccine / pneumococcal capsular polysacchar influenza virus 0.5 mL, Route: Inactive [place] vaccine, IM, Drug Form: 2015 Medical inactivated SUSP, Daily, Center Start date: 03/06/16 9:00:00 CDT, Duration: 1 doses or times, Stop date: 03/06/16 9:00:00 CDTNotes: (Same as: Fluzone Quadrivalent, Fluarix Quadrivalent) For 3 years of age and older (0.5 mL IM) Shake well before use Dilaudid 0.5 mg, 0.25 Inactive [place] mL, Route: 2015 Medical IVP, Drug Center form: INJ, ONCE, Dosing Weight 86.364, kg, Priority: STAT, Start date: 03/06/16 6:40:00 CDT, Stop date: 03/06/16 6:40:00 CDTNotes: (Same as: Dilaudid) Sodium Chloride 1,000 mL, No Longer [place] 0.154 MEQ/ML Rate: 100 Active 2015 Medical Injectable ml/hr, Infuse Center Solution over: 10 hr, Route: IV, Dosing Weight 86.364 kg, Total Volume: 1,000, Start date: 03/06/16 3:34:00 CDT, Duration: 30 day, Stop date: 04/05/16 3:33:00 CDT Saline Flush 0.9% 10 ml, Route: No Longer [facility] IVP, Drug Active 2015 Medical Form: INJ, Center Dosing Weight 86.364, kg, PRN, PRN Line Flush, Start date: 03/06/16 3:34:00 CDT, Duration: 30 day, Stop date: 04/05/16 3:33:00 CDTNotes: Same as: BD Posiflush Sterile Sodium Bicarbonate 1300, PO, TID, No Longer [facility] 0 Refill(s) Active 2015 [facility] biotin 48947 mcg, 0 No Longer [facility] Refill(s) Active 2015 [facility] Hydralazine 25 mg, PO, Active [facility] BID, 0 2015 Medical Refill(s) Center 3 ML insulin See Active [facility] detemir 100 UNT/ML Instructions, 2016 Medical Prefilled Syringe 34 units qAM Center [Levemir] and 32 units qPM SUB-Q, # 60 mL, 1 Refill(s), called to pharmacy 3 ML Insulin, units, Active [facility] Aspart, Human 100 SUB-Q, 2016 Medical UNT/ML Pen TID-Before [place] Injector [NovoLog] Meals, # 3 mL, 1 Refill(s), called to pharmacy test strips test strips, Active [facility] use to check 2015 Medical BG 4x/day UD, Center TOP, QID, # 360 strip, Refill(s) 3, called to pharmacy NovoLOG FlexPen , Active [facility] SUB-Q, 2014 Medical TID-Before [place] Meals, 0 Refill(s) 3 ML insulin 28 units qam Active [facility] detemir 100 UNT/ML and 32 units 2015 Medical Prefilled Syringe qpm, SUB-Q, [place] [Levemir] BID, # 54 mL, 1 Refill(s), called to pharmacy [place] for use to Active [facility] Injection Syringe administer 2014 Medical Misc/Other insulin five Center times daily UD, MISC, 5X Day, verbal drm 04/09/15 - BD [place]ia, # 450 ea, 1 Refill(s), called to pharmacy 3 ML insulin 28 AM/24PM, Active [facility] detemir 100 UNT/ML SUB-Q, BID, # 2015 Medical Prefilled Syringe 3 mL, 0 Center [Levemir] Refill(s), other magnesium oxide 800 mg=2 tab, Active [place] 400 mg oral tablet PO, BID, # 120 2015 Medical tab, 11 Center Refill(s), Pharmacy: [facility] [id number] Tacrolimus 1 mg, 1 cap, Inactive [place] Route: PO, 2014 Medical Drug form: Center CAP, [id number], Dosing Weight 81.818, kg, Start date: 02/03/15 20:00:00, Duration: 30 day, Stop date: 03/05/15 8:00:00Notes: Avoid grapefruit and grapefruit juice. (Same As: Prograf) insulin detemir 20 unit, 0.2 Inactive [place] mL, Route: 2014 Medical SUB-Q, Drug Center form: INJ, Before Dinner, Dosing Weight 81.818, kg, Start date: 02/03/15 16:30:00, Stop date: 03/04/15 16:30:00Notes: Same as Levemir Do not hold insulin without contacting prescriber "single patient use only" 3 ML Insulin, 9 unit, SUB-Q, Active [place] Aspart, Human 100 TID-Before 2015 Medical UNT/ML Prefilled Meals, # 10 Center Syringe [NovoLog] mL, 5 Refill(s), Pharmacy: [facility] [id number] 3 ML insulin See Special Active [place] detemir 100 UNT/ML Instructions, 2015 Medical Prefilled Syringe SUB-Q, BID, Center [Levemir] Inject 25 units before breakfast and inject 20 units at bedtime, # 1 pen(s), 0 Refill(s), Pharmacy: [facility] [id number] Instructions: Inject 25 units before breakfast and inject 20 units at bedtime pregabalin 50 MG 50 mg=1 cap, Active [place] Oral Capsule PO, BID, # 60 2015 Medical [Lyrica] cap, 2 Center Refill(s) 24 HR Nifedipine 90 mg=1 tab, Active [place] 90 MG Extended PO, Q12H, # 60 2015 Medical Release Tablet tab, 5 Center [Nifediac] Refill(s), Pharmacy: [facility] [id number] magnesium oxide 800 mg=2 tab, Active [place] 400 mg oral tablet PO, BID, # 120 2015 Medical tab, 6 Center Refill(s), Pharmacy: [facility] [id number] carvedilol 25 mg 25 mg=1 tab, Active [facility] oral tablet PO, Q12H, # 60 2015 Medical tab, 3 Center Refill(s), Pharmacy: [facility] [id number], [id number] simvastatin 20 mg 20 mg=1 tab, Active [facility] oral tablet PO, Bedtime, # 2015 Medical 30 tab, 6 Center Refill(s), Pharmacy: [facility] [id number] insulin detemir 20 unit, Inactive [place] 100 UNT/ML SUB-Q, 2015 Medical Injectable Bedtime, # 10 Center Solution [Levemir] mL, 3 Refill(s), Pharmacy: [facility] [id number] Insulin Aspart 100 9 unit, SUB-Q, Inactive [facility] unit/ml - (Medium TID-Before 2014 Medical CD) Meals, # 10 Center mL, 3 Refill(s), Pharmacy: [facility] [id number] Famotidine 20 MG 20 mg=1 tab, Active [facility] Oral Tablet PO, Daily, # 2015 Medical [Pepcid] 30 tab, 3 Center Refill(s), Pharmacy: [facility] [id number] tacrolimus 0.5 mg 1 mg=2 cap, Active [facility] oral capsule PO, Q12H, # 2015 Medical 120 cap, 3 Center Refill(s), Pharmacy: [facility] [id number] predniSONE 5 mg 5 mg=1 tab, Active [facility] oral tablet PO, Daily, X 2015 Medical 30 day, # 30 Center tab, 3 Refill(s), Pharmacy: [facility] [id number] levofloxacin 750 750 mg=1 tab, Active [facility] mg oral tablet PO, [id number], # 2015 Medical 5 tab, 0 Center Refill(s), [facility] [id number] leflunomide 20 mg 40 mg=2 tab, Active [facility] oral tablet PO, Daily, # 2015 Medical 60 tab, 3 Center Refill(s), [facility]: [facility] [id number] insulin detemir 25 unit, Inactive [place] 100 units/mL SUB-Q, Before 2014 Medical subcutaneous Breakfast, # Center solution 10 mL, 0 Refill(s), Pharmacy: [facility] [id number] tramadol 50 mg=1 tab, Inactive [place] hydrochloride 50 PO, Q4H, PRN 2015 Medical MG Oral Tablet Pain Score Center 4-6, 0 Refill(s) insulin detemir 25 unit, Inactive [place] 100 units/mL SUB-Q, Before 2014 Medical subcutaneous Breakfast, 0 Center solution Refill(s) insulin detemir 20 unit, Inactive [place] SUB-Q, Before 2014 Medical Dinner, 0 Center Refill(s) levofloxacin 750 750 mg=1 tab, Inactive [facility] mg oral tablet PO, [id number], 0 2014 Medical Refill(s) Center Insulin, Aspart, 9 unit, SUB-Q, Inactive 02/03[facility] Human TID-Before 2014 Medical Meals, 0 Center Refill(s) tacrolimus 1 mg 1 mg=1 cap, Inactive 02/03[facility] oral capsule PO, [id number], 0 2014 Medical Refill(s) Center predniSONE 5 mg 5 mg=1 tab, Inactive [facility] oral tablet PO, Daily, 0 2014 Medical Refill(s) Center Insulin, Aspart, 9 unit, 0.09 Inactive 02/03[facility] Human mL, Route: 2014 Medical SUB-Q, Drug Center form: SOLN, TID-Before Meals, Dosing Weight 81.818, kg, Start date: 02/03/15 11:30:00, Duration: 30 day, Stop date: 03/05/15 7:30:00Notes: Roll in palms of hands gently; Do not shake vigorously. (Same as: NovoLOG) "single patient use only" Stable for 28 days at room temperature. Expires in days from Date Tacrolimus 0.5 mg, 1 cap, Inactive [facility] Route: PO, 2014 Medical Drug form: Center CAP, ONCE, Dosing Weight 81.818, kg, Priority: NOW, Start date: 02/03/15 10:25:00, Stop date: 02/03/15 10:25:00Notes: Avoid grapefruit and grapefruit juice. (Same As: Prograf) Insulin, Aspart, 5 unit, 0.05 No Longer [place] Human mL, Route: Active 2014 Medical SUB-Q, Drug Center form: SOLN, TID-Before Meals, Dosing Weight 81.818, kg, Start date: 02/02/15 17:00:00, Duration: 30 day, Stop date: 03/04/15 16:30:00Notes: Roll in palms of hands gently; Do not shake vigorously. (Same as: NovoLOG) "single patient use only" Stable for 28 days at room temperature. Expires in days from Date potassium chloride 20 mEq, 1 tab, Inactive [place] Route: PO, 2014 Medical Drug form: [place] ERTAB, ONCE, Dosing Weight 81.818, kg, Priority: NOW, Start date: 02/02/15 8:56:00, Stop date: 02/02/15 8:56:00Notes: (Same as: K-Dur 20) "Do Not Crush" With food and full glass of water Levofloxacin 750 mg, 1 tab, No Longer [place] Route: PO, Active 2014 Medical Drug form: [place] TAB, [id number], Dosing Weight 81.818, kg, For CrCl=20 -49ml/min, Start date: 02/01/15 14:00:00, Duration: 30 day, Stop date: 03/01/15 14:00:00Notes: Do not give w/antacids, dairy pdt & minerals Take 1 hr before or 2 hr after dairy products Nifediac CC 90 mg, 1 tab, No Longer [place] Route: PO, Active 2014 Medical Drug form: [place] ERTAB, Q12H, Dosing Weight 81.818, kg, Start date: 01/31/15 9:00:00, Duration: 30 day, Stop date: 03/01/15 21:00:00Notes: (Same as:Adalat CC, Procardia XL) Give on empty stomach. Take 1 hour before or 2 hours after meal; "Avoid grapefruit and grapefruit juice". Do not crush leflunomide 40 mg, 2 tab, No Longer [place] Route: PO, Active 2014 Medical Drug form: [place] TAB, Daily, Dosing Weight 81.818, kg, Start date: 01/31/15 9:00:00, Duration: 30 day, Stop date: 03/01/15 9:00:00Notes: Non-Formulary Drug (Same as:Arava) Tramadol 50 mg, 1 tab, No Longer [place] Route: PO, Active 2014 Medical Drug form: [place] TAB, Q4H, Dosing Weight 81.818, kg, PRN Pain Score 4-6, Start date: 01/31/15 8:39:00, Duration: 30 day, Stop date: 03/02/15 8:38:00Notes: Not to exceed 400mg/day. (Same As: Ultram) potassium chloride 40 mEq, 2 tab, Inactive [place] Route: PO, 2014 Medical Drug form: Center ERTAB, ONCE, Dosing Weight 81.818, kg, Electrolyte replacement, Start date: 01/31/15 7:36:00, Stop date: 01/31/15 7:36:00Notes: (Same as: K-Dur 20) "Do Not Crush" With food and full glass of water potassium 18 mmol, 6 mL, Inactive [place] phosphate + Sodium Route: [id number] Medical Chloride 0.9% IV ONCE, Dosing Center 250 mL Weight 81.818, kg, Start date: 01/31/15 7:35:00, Stop date: 01/31/15 7:35:00Notes: (Same as: K Phosphate.) 1 mMol phoshate has 1.47 mEq potassium Infuse over 4 hours insulin detemir 25 unit, 0.25 No Longer [place] mL, Route: Active 2014 Medical SUB-Q, Drug Center form: INJ, Before Breakfast, Dosing Weight 81.818, kg, Start date: 01/31/15 7:30:00, Stop date: 03/01/15 7:30:00Notes: Same as Levemir Do not hold insulin without contacting prescriber "single patient use only" carvedilol 25 mg, 1 tab, No Longer [place] Route: PO, Active 2014 Medical Drug form: Center TAB, Q12H, Dosing Weight 81.818, kg, Start date: 01/31/15 6:02:00, Duration: 30 day, Stop date: 03/01/15 21:00:00Notes: Give with food. (Same As: Coreg) Tylenol 650 mg, 2 tab, Inactive [facility] Route: PO, 2014 Medical Drug form: Center TAB, ONCE, Dosing Weight 81.818, kg, Start date: 01/30/15 21:34:00, Stop date: 01/30/15 21:34:00Notes: Do not exceed 4 gm/day. (Same as: Tylenol) Tylenol 650 mg, 20.3 Inactive [place] mL, Route: PO, 2014 Medical Drug form: [place] LIQ, ONCE, Dosing Weight 81.818, kg, Start date: 01/30/15 21:18:00, Stop date: 01/30/15 21:18:00 cefepime 1 gm, Route: No Longer [facility] IVPB, Drug Active 2014 Medical form: INJ, Center [id number], Dosing Weight 81.818, kg, (CrCl 10 - 29 ml/min), Start date: 01/30/15 18:00:00, Duration: 30 day, Stop date: 02/28/15 18:00:00Notes: (Same As: Maxipime) MEDICATION WASTE Product Size: 1000 mg Product Wasted: ___ mg Insulin, Aspart, 12 unit, 0.12 No Longer [place] Human mL, Route: Active 2014 Medical SUB-Q, Drug Center form: SOLN, TID-Before Meals, Dosing Weight 81.818, kg, Start date: 01/30/15 16:30:00, Stop date: 03/01/15 11:30:00Notes: Roll in palms of hands gently; Do not shake vigorously. (Same as: NovoLOG) "single patient use only" Stable for 28 days at room temperature. Expires in days from Date insulin detemir 25 unit, 0.25 No Longer [place] mL, Route: Active 2014 Medical SUB-Q, Drug Center form: INJ, Before Dinner, Dosing Weight 81.818, kg, Start date: 01/30/15 16:30:00, Stop date: 02/28/15 16:30:00Notes: Same as Levemir Do not hold insulin without contacting prescriber "single patient use only" Insulin, Aspart, 5 unit, 0.05 Inactive [place] Human mL, Route: 2014 Medical SUB-Q, Drug Center form: SOLN, TID-Before Meals, Dosing Weight 81.818, kg, Start date: 01/30/15 11:30:00, Duration: 30 day, Stop date: 03/01/15 7:30:00Notes: Roll in palms of hands gently; Do not shake vigorously. (Same as: NovoLOG) "single patient use only" Stable for 28 days at room temperature. Expires in days from Date NS 1,000 mL 1,000 mL, No Longer [place] Rate: 100 Active 2014 [facility] ml/hr, Infuse Center over: 10 hr, Route: IV, Dosing Weight 81.818 kg, Total Volume: 1,000, Start date: 01/30/15 10:01:00, Stop date: 03/01/15 10:00:00 Levemir FlexPen 20 unit, Inactive [facility] Route: SUB-Q, 2014 Medical Drug form: Center INJ, Daily, Dosing Weight 81.818, kg, Start date: 01/30/15 9:00:00, Duration: 30 day, Stop date: 02/28/15 9:00:00 insulin detemir 15 unit, 0.15 Inactive [facility] mL, Route: 2014 Medical SUB-Q, Drug Center form: INJ, BID, Dosing Weight 81.818, kg, Start date: 01/30/15 9:00:00, Duration: 30 day, Stop date: 02/28/15 17:00:00Notes: Same as Levemir Do not hold insulin without contacting prescriber "single patient use only" Sodium Bicarbonate 1,300 mg, 2 No Longer [place] 650 MG Oral Tablet tab, Route: Active 2014 Medical PO, Drug form: [place] TAB, TID, Dosing Weight 81.818, kg, Start date: 01/30/15 9:00:00, Duration: 30 day, Stop date: 02/28/15 17:00:00Notes: "Dissolve tablet in a glass of water prior to oral administration . STOMACH WARNING: To avoid serious injury, do not take until tablet is completely dissolved. It is very important not to take this product when overly full from food or drink." Lyrica 50 mg, 1 cap, No Longer [place] Route: PO, Active 2014 Medical Drug form: [place] CAP, BID, Dosing Weight 81.818, kg, Start date: 01/30/15 9:00:00, Duration: 30 day, Stop date: 02/28/15 17:00:00Notes: Same as Lyrica Prednisone 5 mg, 1 tab, No Longer [place] Route: PO, Active 2014 Medical Drug form: [place] TAB, Daily, Dosing Weight 81.818, kg, Start date: 01/30/15 9:00:00, Duration: 30 day, Stop date: 02/28/15 9:00:00Notes: Take with food. potassium 250 mg, 1 tab, Inactive [place] phosphate 155 MG / Route: PO, 2014 Medical Sodium Phosphate, Drug Form: [place] Dibasic 852 MG / TAB, Dosing Sodium Phosphate, Weight 81.818, Monobasic 130 MG kg, Q12H, Oral Tablet Start date: [K-Phos Neutral] 01/30/15 9:00:00, Duration: 30 day, Stop date: 02/28/15 21:00:00Notes: Non-Fomrulary Drug. (Same as: K-Phos) Magnesium Oxide 800 mg, 2 tab, No Longer [place] Route: PO, Active 2014 Medical Drug form: [place] TAB, BID, Dosing Weight 81.818, kg, Start date: 01/30/15 9:00:00, Duration: 30 day, Stop date: 02/28/15 17:00:00Notes: (Same as: Mag-Ox 400) Magnesium oxide [id number] elemental magnesium Dose=____mg magnesium oxide (___mg elemental magnesium) Famotidine 20 MG 20 mg, 1 tab, No Longer [place] Oral Tablet Route: PO, Active 2014 Medical [Pepcid] Drug form: Center TAB, Daily, Dosing Weight 81.818, kg, Start date: 01/30/15 9:00:00, Duration: 30 day, Stop date: 02/28/15 9:00:00Notes: (Same as: Pepcid) heparin 5,000 unit, 1 No Longer [place] mL, Route: Active 2014 Medical SUB-Q, Drug Center form: INJ, Q12H, Dosing Weight 81.818, kg, Start date: 01/30/15 9:00:00, Duration: 30 day, Stop date: 02/28/15 21:00:00Notes: porcine heparin Saline Flush 0.9% 10 ml, Route: No Longer [place] IVP, Drug Active 2014 Medical Form: INJ, Center Dosing Weight 81.818, kg, Q12H, Start date: 01/30/15 9:00:00, Duration: 30 day, Stop date: 02/28/15 21:00:00Notes: (Same as: BD Posiflush) Dextrose 50% 12.5 gm, 25 No Longer [place] Syringe mL, Route: Active 2014 Medical IVP, Drug Center Form: INJ, Dosing Weight 81.818, kg, PRN, PRN Blood Glucose Results, Start date: 01/30/15 8:03:00, Duration: 30 day, Stop date: 03/01/15 8:02:00 Glucagon 1 mg, Route: No Longer [place] IM, Drug form: Active 2014 Medical PDR/INJ, PRN, Center Dosing Weight 81.818, kg, PRN Blood Glucose Results, Start date: 01/30/15 8:03:00, Duration: 30 day, Stop date: 03/01/15 8:02:00 Insulin, Aspart, 1 unit, 0.01 No Longer [place] Human mL, Route: Active 2014 Medical SUB-Q, Drug Center form: SOLN, TID-Before Meals, Dosing Weight 81.818, kg, PRN Blood Glucose Results, Start date: 01/30/15 8:03:00, Duration: 30 day, Stop date: 03/01/15 8:02:00Notes: Roll in palms of hands gently; Do not shake vigorously. (Same as: NovoLOG) "single patient use only" Stable for 28 days at room temperature. Expires in days from Date Tacrolimus 0.5 mg, 1 cap, No Longer [place] Route: PO, Active 2014 Medical Drug form: [place] CAP, Q12H, Dosing Weight 81.818, kg, Start date: 01/30/15 8:00:00, Duration: 30 day, Stop date: 02/28/15 20:00:00Notes: Avoid grapefruit and grapefruit juice. (Same As: Prograf) potassium 250 mg, PO, No Longer [place] phosphate 155 MG / Q12H, 8a & 8p, Active 2014 Medical Sodium Phosphate, 0 [place] Dibasic 852 MG / Refill(s)Speci Sodium Phosphate, al Monobasic 130 MG Instructions: Oral Tablet 8a & 8p [K-Phos Neutral] azithromycin 500 500 mg, 2 tab, No Longer [place] mg oral tablet Route: PO, Active 2014 Medical Drug form: [place] TAB, Daily, Dosing Weight 81.818, kg, Start date: 01/30/15 3:08:00, Duration: 3 day, Stop date: 02/01/15 9:00:00Notes: Take 1 hour before or 2 hours after meals. (Same As: Zithromax) Tylenol 650 mg, 2 tab, Inactive [place] Route: PO, 2014 Medical Drug form: [place] TAB, ONCE, Dosing Weight 81.818, kg, PRN For Temp > 100.4 F, Start date: 01/30/15 0:30:00, Stop date: 03/01/15 0:29:00Notes: Do not exceed 4 gm/day. (Same as: Tylenol) Hydrocortisone 100 mg, 2 mL, Inactive [place] Route: IV, 2014 Medical Drug form: Center PDR/INJ, Q8H, Dosing Weight 81.818, kg, Start date: 01/30/15 0:00:00, Stop date: 01/30/15 8:00:00Notes: (Same as: Solu-CORTEF) Saline Flush 0.9% 10 ml, Route: No Longer [facility] IVP, Drug Active 2014 Medical Form: INJ, Center Dosing Weight 81.818, kg, PRN, PRN Line Flush, Start date: 01/29/15 23:35:00, Duration: 30 day, Stop date: 02/28/15 23:34:00Notes: (Same as: BD Posiflush) Calcium Chloride 500 mL, 500 No Longer [facility] 0.0014 MEQ/ML / ml/hr, Infuse Active 2014 [facility] Potassium Chloride Over: 1 hr, [place] 0.004 MEQ/ML / Route: IV, Sodium Chloride 500, Drug 0.103 MEQ/ML / form: INJ, Sodium Lactate ONCE, 0.028 MEQ/ML Priority: Injectable STAT, Dosing Solution Weight 81.818 kg, Start date: 01/29/15 23:06:00, Duration: 1 doses or times, Stop date: 01/29/15 23:06:00 Tylenol 325 mg, Route: Inactive [facility] PO, ONCE, 2014 Medical Dosing Weight Center 81.818, kg, Start date: 01/29/15 19:47:00, Stop date: 01/29/15 19:47:00 cefepime 1 gm, Route: Inactive [facility] IVPB, ONCE, 2014 Medical Dosing Weight Center 81.818, kg, Priority: STAT, Start date: 01/29/15 17:49:00, Stop date: 01/29/15 17:49:00 Vancomycin 1.75 gm, Inactive [facility] Route: IV, 2014 Medical ONCE, Dosing Center Weight 81.818, kg, Start date: 01/29/15 17:49:00, Stop date: 01/29/15 17:49:00Notes: TIME CRITICAL MEDICATION (Same As: Vancocin) Infusion rate 2001 mg: infuse over 2.5 hours MEDICATION WASTE Product Size: 1000 mg Product Wasted: _250__ mg Acetaminophen 650 mg, Route: Inactive [facility] PO, Drug form: 2014 Medical TAB, ONCE, Center Dosing Weight 81.818, kg, Start date: 01/29/15 17:31:00, Stop date: 01/29/15 17:31:00 Sodium Chloride 1,000 mL, Inactive [facility] 0.154 MEQ/ML 1,000 ml/hr, 2015 Medical Injectable Infuse Over: 1 Center Solution hr, Route: IV, ONCE, Priority: STAT, Dosing Weight 81.818 kg, Start date: 01/29/15 17:31:00, Duration: 1 doses or times, Stop date: 01/29/15 17:31:00 Saline Flush 0.9% 10 mL, Route: No Longer [facility] IVP, Drug Active 2014 Medical Form: INJ, Center Dosing Weight 81.818, kg, PRN, PRN Line Flush, Start date: 01/29/15 17:31:00, Duration: 30 day, Stop date: 02/28/15 17:30:00Notes: (Same as: BD Posiflush) 3 ML Insulin, Novolog Active [place] Aspart, Human 100 2015 Medical UNT/ML Prefilled units, SUB-Q, Center Syringe [NovoLog] TID-Before Meals, # 40 mL, 1 Refill(s), called to pharmacy Contour Next Test Contour Next Active [facility] Strips Test Strips, 2014 [facility] Check glucose, [place] TOP, QID, # 400 unit, Refill(s) 1, called to pharmacy 3 ML insulin 26/44 units, Active [facility] detemir 100 UNT/ML SUB-Q, BID, # 2015 Medical Prefilled Syringe 63 mL, 1 Center [Levemir] Refill(s), called to pharmacy Vitamin D3 2000 2,000 Active [facility] intl units oral IntlUnit=1 2014 Medical capsule cap, PO, Center Daily, # 100 cap, 3 Refill(s), given to patient simvastatin 20 mg 20 mg=1 tab, Inactive [facility] oral tablet PO, Bedtime, # 2015 Medical 90 tab, 1 Center Refill(s), given to patient simvastatin 20 mg 20 mg=1 tab, Active [facility] oral tablet PO, Bedtime, # 2015 Medical 30 tab, 6 Center Refill(s), Pharmacy: [facility] [id number] leflunomide 40 mg, 2 tab, Inactive [place] Route: PO, 2014 Medical Drug form: Center TAB, Daily, Dosing Weight 77.273, kg, Start date: 12/03/14 9:00:00, Duration: 30 day, Stop date: 01/01/15 9:00:00Notes: Non-Formulary Drug (Same as:Arava) Levemir FlexPen 25 unit, 0.25 Inactive [place] mL, Route: 2014 Medical SUB-Q, Drug Center form: INJ, Daily, Dosing Weight 77.273, kg, Start date: 12/03/14 9:00:00, Duration: 30 day, Stop date: 01/01/15 9:00:00Notes: Same as Levemir Do not hold insulin without contacting prescriber "single patient use only" Prednisone 5 mg, 1 tab, Inactive [place] Route: PO, 2014 Medical Drug form: Center TAB, Daily, Dosing Weight 77.273, kg, Start date: 12/03/14 9:00:00, Duration: 30 day, Stop date: 01/01/15 9:00:00Notes: Take with food. Sulfamethoxazole 1 tab, Route: Inactive [place] 400 MG / PO, Drug Form: 2014 Medical Trimethoprim 80 MG TAB, Dosing Center Oral Tablet Weight 77.273, [Bactrim] kg, Daily, Start date: 12/03/14 9:00:00, Duration: 30 day, Stop date: 01/01/15 9:00:00 24 HR Nifedipine 90 mg, 1 tab, No Longer [facility] 90 MG Extended Route: PO, Active 2014 Medical Release Tablet Drug form: [place] ERTAB, Daily, Dosing Weight 77.273, kg, Start date: 12/03/14 9:00:00, Duration: 30 day, Stop date: 01/01/15 9:00:00Notes: (Same as:Adalat CC, Procardia XL) Give on empty stomach. Take 1 hour before or 2 hours after meal; "Avoid grapefruit and grapefruit juice". Do not crush Famotidine 20 MG 20 mg, 1 tab, Inactive 12/03[facility] Oral Tablet Route: PO, 2014 Medical [Pepcid] Drug form: [place] TAB, Daily, Dosing Weight 77.273, kg, Start date: 12/03/14 9:00:00, Duration: 30 day, Stop date: 01/01/15 9:00:00Notes: (Same as: Pepcid) predniSONE 10 mg 5 mg=0.5 tab, Active 12/03[facility] oral tablet PO, Daily, 0 2014 Medical Refill(s) Center 24 HR Nifedipine 90 mg=1 tab, Active 12/03[facility] 90 MG Extended PO, Q12H, 0 2014 Medical Release Tablet Refill(s) Center [Nifediac] pregabalin 50 MG 50 mg=1 cap, Active 12/03[facility] Oral Capsule PO, BID, 0 2014 Medical [Lyrica] Refill(s) Center leflunomide 20 mg 40 mg=2 tab, Active 12/03[facility] oral tablet PO, Daily, 0 2014 Medical Refill(s) Center Sodium Bicarbonate 1,300 mg, PO, Active 12/03[facility] TID, 0 2014 Medical Refill(s) Center Senna 8.6 mg oral 17.2 mg=2 tab, Active 12/03[facility] tablet PO, Bedtime, 0 2014 Medical Refill(s) Center potassium 1 tab, PO, Inactive 12/03[facility] phosphate 155 MG / BID, 0 2014 Medical Sodium Phosphate, Refill(s) Center Dibasic 852 MG / Sodium Phosphate, Monobasic 130 MG Oral Tablet [K-Phos Neutral] Zofran 4 mg, Route: Inactive 12/03[facility] IV, Q6H, 2014 Medical Dosing Weight Center 77.273, kg, Start date: 12/03/14 6:00:00, Duration: 30 day, Stop date: 01/02/15 0:00:00 Zofran 4 mg, 2 mL, Inactive 12/03[facility] Route: IV, 2014 Medical Drug form: [place] INJ, PRN, Dosing Weight 77.273, kg, PRN Nausea, Start date: 12/03/14 1:50:00, Duration: 30 day, Stop date: 01/02/15 1:49:00Notes: (Same as: Zofran) MEDICATION WASTE Product Size: 4 mg Product Wasted: ___ mg Tylenol 650 mg, 2 tab, Inactive [place] Route: PO, 2014 Medical Drug form: [place] TAB, Q6H, Dosing Weight 77.273, kg, PRN Pain Score 1-3, Start date: 12/03/14 0:18:00, Duration: 30 day, Stop date: 01/02/15 0:17:00Notes: Do not exceed 4 gm/day. (Same as: Tylenol) carvedilol 25 mg, 1 tab, No Longer [facility] Route: PO, Active 2014 Medical Drug form: [place] TAB, Q12H, Dosing Weight 77.273, kg, Start date: 12/02/14 21:00:00, Duration: 30 day, Stop date: 01/01/15 9:00:00 24 HR Nifedipine 90 mg, 1 tab, No Longer [facility] 90 MG Extended Route: PO, Active 2014 Medical Release Tablet Drug form: [place] ERTAB, Q12H, Dosing Weight 77.273, kg, Start date: 12/02/14 21:00:00, Duration: 30 day, Stop date: 01/01/15 9:00:00Notes: (Same as:Adalat CC, Procardia XL) Give on empty stomach. Take 1 hour before or 2 hours after meal; "Avoid grapefruit and grapefruit juice". Do not crush Tacrolimus 1 mg, 1 cap, No Longer [facility] Route: PO, Active 2014 Medical Drug form: [place] CAP, Q12H, Dosing Weight 77.273, kg, Start date: 12/02/14 21:00:00, Duration: 30 day, Stop date: 01/01/15 9:00:00Notes: Avoid grapefruit and grapefruit juice. (Same As: Prograf) Levemir FlexPen 46 unit, 0.46 No Longer [place] mL, Route: Active 2014 Medical SUB-Q, Drug Center form: INJ, Bedtime, Dosing Weight 77.273, kg, Start date: 12/02/14 21:00:00, Duration: 30 day, Stop date: 12/31/14 21:00:00Notes: Same as Levemir Do not hold insulin without contacting prescriber "single patient use only" Magnesium Oxide 800 mg, 2 tab, No Longer [place] Route: PO, Active 2014 Medical Drug form: Center TAB, BID, Dosing Weight 77.273, kg, Start date: 12/02/14 17:00:00, Duration: 30 day, Stop date: 01/01/15 9:00:00Notes: (Same as: Mag-Ox 400) Magnesium oxide [id number] elemental magnesium Dose=____mg magnesium oxide (___mg elemental magnesium) Sodium Bicarbonate 650 mg, 1 tab, No Longer [place] Route: PO, Active 2014 Medical Drug form: [place] TAB, TID, Dosing Weight 77.273, kg, Start date: 12/02/14 17:00:00, Duration: 30 day, Stop date: 01/01/15 13:00:00Notes: "Dissolve tablet in a glass of water prior to oral administration . STOMACH WARNING: To avoid serious injury, do not take until tablet is completely dissolved. It is very important not to take this product when overly full from food or drink." NovoLog 14 unit, 0.14 No Longer [place] mL, Route: Active 2014 Medical SUB-Q, Drug Center form: SOLN, TID-Before Meals, Dosing Weight 77.273, kg, Start date: 12/02/14 16:30:00, Duration: 30 day, Stop date: 01/01/15 11:30:00Notes: Roll in palms of hands gently; Do not shake vigorously. (Same as: NovoLOG) "single patient use only" Stable for 28 days at room temperature. Expires in days from Date Hydralazine 20 mg, 1 mL, No Longer [place] Route: IVP, Active 2014 Medical Drug form: Center INJ, Q4H, Dosing Weight 77.273, kg, PRN Hypertension, Priority: Routine, Start date: 12/02/14 16:09:00, Duration: 30 day, Stop date: 01/01/15 16:08:00Notes: (Same as: Apresoline) Push over 5 minutes tacrolimus 0.5 mg 0.5 mg=1 cap, Active [facility] oral capsule PO, Q12H, # 60 2015 Medical cap, 3 Center Refill(s), Pharmacy: [facility] [id number] everolimus 0.25 MG 0.5 mg=2 tab, Active [facility] Oral Tablet PO, Q12H, # 2015 Medical 120 tab, 3 Center Refill(s), Pharmacy: [facility] [id number] Ondansetron 4 mg, 2 mL, Inactive [facility] Route: IVP2014 Medical Drug form: Center INJ, ONCE, Dosing Weight 77.273, kg, PRN Nausea & Vomiting, Start date: 12/02/14 14:35:00Notes: (Same as: Zofran) MEDICATION WASTE Product Size: 4 mg Product Wasted: ___ mg Naloxone 0.04 mg, 0.1 Inactive [facility] mL, Route: 2014 Medical IVP, Drug Center form: INJ, Q2MIN, Dosing Weight 77.273, kg, PRN Narcotic Reversal, Start date: 12/02/14 14:35:00, Duration: 8 doses or times, Stop date: 12/03/14 0:00:00Notes: (Same as: Narcan) Flumazenil 0.2 mg, 2 mL, Inactive [facility] Route: IVP2014 Medical Drug form: Center INJ, PRN, Dosing Weight 77.273, kg, PRN Benzodiazepine Reversal, Initial dose, Start date: 12/02/14 14:35:00, Duration: 30 day, Stop date: 01/01/15 14:34:00Notes: (Same as: Romazicon) Hydralazine 10 mg, 0.5 mL, Inactive [facility] Route: IVP2014 Medical Drug form: Center INJ, Q20Min, Dosing Weight 77.273, kg, PRN Elevated BP, Start date: 12/02/14 14:35:00, Duration: 2 doses or times, Stop date: 12/03/14 0:00:00Notes: (Same as: Apresoline) Push over 5 minutes 24 HR Nifedipine 90 mg, 1 tab, Inactive [facility] [place] 90 MG Extended Route: PO, 2014 Medical Release Tablet ONCE, Dosing Center Weight 77.273, kg, Start date: 12/02/14 14:18:00, Stop date: 12/02/14 14:18:00 Insulin, Aspart, 8 unit, 0.08 No Longer [place] Human mL, Route: Active 2014 Medical SUB-Q, Drug Center form: SOLN, TID-Before Meals, Dosing Weight 77.273, kg, PRN Blood Glucose Results, Start date: 12/02/14 13:43:00, Duration: 30 day, Stop date: 01/01/15 13:42:00Notes: Roll in palms of hands gently; Do not shake vigorously. (Same as: NovoLOG) "single patient use only" Stable for 28 days at room temperature. Expires in days from Date Glucagon 1 mg, Route: No Longer [place] IM, Drug form: Active 2014 Medical PDR/INJ, PRN, Center Dosing Weight 77.273, kg, PRN Blood Glucose Results, Start date: 12/02/14 13:43:00, Duration: 30 day, Stop date: 01/01/15 13:42:00 Dextrose 50% 12.5 gm, 25 No Longer [place] Syringe mL, Route: Active 2014 Medical IVP, Drug Center Form: INJ, Dosing Weight 77.273, kg, PRN, PRN Blood Glucose Results, Start date: 12/02/14 13:43:00, Duration: 30 day, Stop date: 01/01/15 13:42:00 Docusate Sodium 100 mg, 1 cap, No Longer [place] 100 MG Oral Route: PO, Active 2014 Medical Capsule [Colace] Drug form: [place] CAP, BID, Dosing Weight 77.273, kg, PRN as needed for constipation, Start date: 12/02/14 13:40:00, Duration: 30 day, Stop date: 01/01/15 13:39:00Notes: (Same as: Colace) (Do Not Crush) Saline Flush 0.9% 10 ml, Route: No Longer [place] IVP, Drug Active 2014 Medical Form: INJ, Center Dosing Weight 77.273, kg, PRN, PRN Line Flush, Start date: 12/02/14 13:35:00, Duration: 30 day, Stop date: 01/01/15 13:34:00Notes: Same as: BD Posiflush Sterile NovoLog 14 unit, No Longer [place] SUB-Q, Active 2014 Medical TID-Before Center Meals, 16 units afternoon/ 12 units dinner before a meal, 0 Refill(s)Speci al Instructions: 16 units afternoon/ 12 units dinner before a meal 3 ML insulin 46 units, No Longer [place] detemir 100 UNT/ML SUB-Q, Active 2014 Medical Prefilled Syringe Bedtime, 0 Center [Levemir] Refill(s) 3 ML insulin 25 unit, No Longer [place] detemir 100 UNT/ML SUB-Q, Daily, Active 2015 Medical Prefilled Syringe 0 Refill(s) Center [Levemir] magnesium oxide 800 mg=2 tab, No Longer [place] 400 mg oral tablet PO, BID, 0 Active 2014 Medical Refill(s) Center Vitamin D PO, Every No Longer [facility] Other Day, 0 Active 2014 Medical Refill(s) Center Sodium Bicarbonate 650 mg, PO, No Longer [place] TID, 0 Active 2014 Medical Refill(s) Center carvedilol 25 mg 25 mg=1 tab, No Longer [place] oral tablet PO, Q12H, # 60 Active 2014 Medical tab, 0 Center Refill(s) 24 HR Nifedipine 90 mg=1 tab, No Longer [place] 90 MG Extended PO, Daily, # Active 2015 Medical Release Tablet 30 tab, 0 Center Refill(s) leflunomide 20 mg 60 mg=3 tab, No Longer [place] oral tablet PO, Daily, 0 Active 2015 Medical Refill(s) Center tacrolimus 1 mg 1 mg=1 cap, No Longer [facility] oral capsule PO, Q12H, # Active 2015 Medical 180 cap, 0 Center Refill(s) 3 ML insulin 26/42 units, Active [place] detemir 100 UNT/ML SUB-Q, BID, # 2015 Medical Prefilled Syringe 61 mL, 0 Center [Levemir] Refill(s), called to pharmacy 3 ML insulin 26 units qAM Active [facility] detemir 100 UNT/ML and 42 units 2015 Medical Prefilled Syringe qPM, SUB-Q, Center [Levemir] BID, # 7 pen(s), 2 Refill(s), called to pharmacy NovoLOG FlexPen Novolog Active [place] 05/26/12 2015 Medical units, SUB-Q, Center TID-Before Meals, 0 Refill(s) 3 ML insulin 26 units qAM Active [facility] detemir 100 UNT/ML and 42 units 2014 Medical Prefilled Syringe qPM, SUB-Q, Center [Levemir] BID, # 7 pen(s), 2 Refill(s), called to pharmacy leflunomide 20 mg 60 mg=3 tab, Active [facility] oral tablet PO, Daily, # 2013 Medical 90 tab, 3 Center Refill(s), Pharmacy: [facility] [id number] Short Pen [place] Short Pen Active [facility] [place], Use 2013 Medical pen needle, Center TOP, QID, # 300 unit, Refill(s) 0, called to pharmacy 3 ML Insulin, 05/24/10 Active [facility] Aspart, Human 100 units, SUB-Q, 2013 Medical UNT/ML Prefilled Daily, 8pm, # Center Syringe [NovoLog] 10 mL, 0 Refill(s), otherSpecial Instructions: 8pm 3 ML insulin 48 units, Active [place] detemir 100 UNT/ML SUB-Q, Daily, 2013 Medical Prefilled Syringe # 10 mL, 0 Center [Levemir] Refill(s), other 3 ML Insulin, 01/22/10 units, No Longer [facility] Aspart, Human 100 SUB-Q, Active 2013 Medical UNT/ML Prefilled TID-Before Center Syringe [NovoLog] Meals, # 10 mL, 0 Refill(s), other 3 ML insulin 44 UNITS, No Longer [place] detemir 100 UNT/ML SUB-Q, Daily, Active 2013 Medical Prefilled Syringe at 8pm, # 10 Center [Levemir] mL, 0 Refill(s), otherSpecial Instructions: at 8pm 3 ML insulin 40 unit, No Longer [facility] detemir 100 UNT/ML SUB-Q, Q8PM, # Active 2014 Medical Prefilled Syringe 10 mL, 2 Center [Levemir] Refill(s), called to pharmacy 3 ML insulin 40 unit, Active [facility] detemir 100 UNT/ML SUB-Q, Q8PM, # 2014 Medical Prefilled Syringe 10 mL, 0 Center [Levemir] Refill(s), other 3 ML insulin 40 units 8am/6 No Longer [facility] detemir 100 UNT/ML units 8pm, Active 2014 Medical Prefilled Syringe SUB-Q, BID, # Center [Levemir] 10 mL, 0 Refill(s), called to pharmacy 3 ML insulin =40 unit, Active [facility] detemir 100 UNT/ML SUB-Q, Daily, 2013 Medical Prefilled Syringe # 10 mL, 0 Center [Levemir] Refill(s), other Sodium Bicarbonate 1,300 mg=2 Active [facility] 650 MG Oral Tablet tab, PO, BID, 2013 Medical # 120 tab, 3 Center Refill(s), Pharmacy: [facility] [id number] leflunomide 20 MG 20 mg=1 tab, Active [facility] Oral Tablet PO, Daily, # 2014 Medical [Arava] 30 tab, 0 Center Refill(s) 3 ML insulin 32 units, Active [facility] detemir 100 UNT/ML SUB-Q, Daily, 2014 Medical Prefilled Syringe # 10 mL, 0 Center [Levemir] Refill(s), given to patient 3 ML Insulin, , SUB-Q, Active [facility] Aspart, Human 100 TID-Before 2013 Medical UNT/ML Prefilled Meals, # 10 Center Syringe [NovoLog] mL, 0 Refill(s), other Tacrolimus 1 MG 3 mg=3 cap, No Longer [facility] Oral Capsule PO, Q12H, 0 Active 2013 Medical [Prograf] Refill(s) Center benzonatate 200 MG 200 mg=1 cap, No Longer [facility] Oral Capsule PO, TID, # 42 Active 2013 Medical [Tessalon] cap, 0 Center Refill(s), Pharmacy: [facility] [id number] carvedilol 25 MG 25 mg=1 tab, Active [place] Oral Tablet PO, BID, # 60 2013 Medical [Coreg] tab, 6 Center Refill(s), Pharmacy: [facility] [id number] Acetaminophen 650 mg, 2 tab, No Longer [place] Route: PO, Active 2013 Medical Drug form: Center TAB, Q4H, Dosing Weight 70, kg, PRN Pain 1-3/Temp > 100.4 F, Start date: 07/31/13 11:18:00, Duration: 30 day, Stop date: 08/30/13 11:17:00Do not exceed 4 gm/day. (Same as: Tylenol) DDAVP + Sodium 20 microgram, Inactive [facility] Chloride 0.9% IV 5 mL, 2013 Medical 50 mL ml/hr, Route: Center IVPB, Drug Form: INJ, ONCE, Start date: 07/31/13 10:04:00, Stop date: 07/31/13 10:04:00(Same As: DDAVP) Insulin, Aspart, , Active [facility] Human TID-Before 2013 Medical Meals, 0 Center Refill(s) Famotidine 20 MG 20 mg=1 tab, Active [facility] Oral Tablet Daily, 0 2013 Medical Refill(s) Center Sodium Bicarbonate 1,300 mg=2 Active [facility] 650 MG Oral Tablet tab, TID, 0 2013 Medical Refill(s) Center predniSONE 10 mg 10 mg=1 tab, Active [facility] oral tablet PO, Daily, 0 2013 Medical Refill(s) Center Nitrofurantoin 100 100 mg=1 cap, No Longer [facility] MG Oral Capsule PO, BID, # 28 Active 2013 Medical [Macrobid] cap, 0 Center Refill(s) 24 HR Nifedipine 90 mg=1 tab, Active [facility] 90 MG Extended PO, BID, # 30 2014 Medical Release Tablet tab, 0 Center Refill(s) Nitrofurantoin 100 100 mg=1 cap, No Longer [facility] MG Oral Capsule PO, BID, # 28 Active 2013 Medical [Macrobid] cap, 0 Center Refill(s) Lantus 24 unit, Active [facility] Daily, 0 2013 Medical Refill(s) [place] tacrolimus 1 mg 3 mg=3 cap, Active [facility] oral capsule PO, Q12H, # 2014 Medical 180 cap, 0 Center Refill(s) NovoLog FlexPen , Active [facility] TID-Before 2013 Medical Meals, 0 Center Refill(s) K-Phos Neutral 1 tablets, PO, Active [facility] oral tablet BID, 0 2013 Medical Refill(s) [place] magnesium oxide 800 mg=2 tab, Active [place] 400 mg oral tablet PO, BID, # 10 2013 Medical tab, 0 Center Refill(s) furosemide 40 mg, 4 mL, Inactive [facility] Route: IVP, 2013 Medical Drug form: Center INJ, ONCALL, Dosing Weight 72.006, kg, Administer after first unit of Blood., Priority: Routine, Start date: 06/11/13 13:00:00, Duration: 30 day, Stop date: 07/11/13 12:59:00(Same as: Lasix) senna 8.6 mg oral 8.6 mg=1 tab, Active [facility] tablet PO, Bedtime, 2013 Medical Constipation, Center # 50 tab, 0 Refill(s) sodium bicarbonate 1,300 mg=2 Active [facility] 650 mg oral tablet tab, PO, TID, 2013 Medical # 100 tab, 0 Center Refill(s) magnesium oxide 800 mg=2 tab, Active [facility] 06/11[facility] 400 mg oral tablet PO, BID, # 120 2013 Medical tab, 0 Center Refill(s) tacrolimus 1 mg 2 mg=2 cap, Active [facility] 06/11[facility] oral capsule PO, [id number] [facility] Dosing, # 60 cap, 0 Refill(s)Pedia tric Dosing insulin glargine 20 unit=0.2 Active [facility] 100 units/mL mL, SUB-Q, 2013 Medical subcutaneous Daily, # 10 Center solution mL, 0 Refill(s) insulin aspart 100 10 unit=0.1 Active [facility] 06/11[facility] units/mL mL, SUB-Q, 2013 Medical subcutaneous Before Dinner, Center solution # 30 mL, 0 Refill(s) sodium 30 mmol, 30 Inactive [facility] 06/11[facility] glycerophosphate + mL, Route: IV, 2013 Medical Sodium Chloride Drug form: [place] 0.9% IV 250 mL INJ, ONCE, Dosing Weight 72.006, kg, Start date: 06/11/13 12:09:00, Stop date: 06/11/13 12:09:00Same as: Glycophos Non-Formulary Sodium Chloride 250 mL, Rate: Inactive [facility] 06/11[facility] 0.9% (titrate) 250 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 center 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 for 2013 Medical mL use with blood Center product administration , Dosing Weight 72.006, kg, Route: IV, Total Volume: 250, Start Date: 06/11/13 12:08:00, Duration: 30 day, Stop date: 07/11/13 12:07:00, Replace Every: 24 hr sodium 30 mmol, 30 Inactive [facility] 06/10[facility] glycerophosphate + mL, Route: IV, 2012 Medical Sodium Chloride Drug form: [place] 0.9% IV 220 mL INJ, ONCE, Dosing Weight 72.006, kg, Start date: 06/10/13 6:50:00, Stop date: 06/10/13 6:50:00Same as: Glycophos Non-Formulary Benadryl 50 mg, 1 cap, Inactive [facility] 06/10[facility] Route: PO, 2012 Medical Drug form: [place] CAP, ONCE, Dosing Weight 72.006, kg, Start date: 06/10/13 6:49:00, Stop date: 06/10/13 6:49:00(Same as: Benadryl) Tylenol 650 mg, 2 tab, Inactive [facility] 06/10[facility] Route: PO, 2012 Medical Drug form: [place] TAB, ONCE, Dosing Weight 72.006, kg, PRN Fever, Start date: 06/10/13 6:48:00, Stop date: 07/10/13 6:47:00Do not exceed 4 gm/day. (Same as: Tylenol) IVIG 10 % solution 30 gm, 300 mL, Inactive [facility] 06/10[facility] Route: IV, 2012 Medical Drug form: [place] SOLN, ONCE, Dosing Weight 72.006, kg, Start date: 06/10/13 6:48:00, Stop date: 06/10/13 6:48:00Begin at 0.5 mg/kg/min (0.03 grams/kg/hr). gradually increase as tolerated . Not to exceed 4 mg/kg/min (0.24 grams/kg/hr). Lot # ____Mfg: "blood product derivative" sodium 30 mmol, 30 Inactive [facility] 06/09[facility] glycerophosphate + mL, Route: 2012 Medical Sodium Chloride IVPB, ONCE, Center 0.9% IV 220 mL Dosing Weight 72.006, kg, Start date: 06/09/13 12:00:00, Stop date: 06/09/13 12:00:00 sodium 30 mmol, 30 Inactive [facility] 06/09[facility] glycerophosphate + mL, Route: 2012 Medical Sodium Chloride IVPB, ONCE, Center 0.9% IV 220 mL Dosing Weight 72.006, kg, Start date: 06/09/13 11:14:00, Stop date: 06/09/13 11:14:00 magnesium oxide 800 mg, 2 tab, No Longer [facility] 06/09[facility] Route: PO, Active 2012 Medical Drug form: Center TAB, BID, Dosing Weight 72.006, kg, Start date: 06/09/13 9:00:00, Duration: 30 day, Stop date: 07/08/13 17:00:00(Same as: Mag-Ox 400) Magnesium oxide [id number] elemental magnesium Dose=____mg magnesium oxide (___mg elemental magnesium) Epogen 10,000 unit, 1 No Longer [facility] 06/09[facility] mL, Route: Active 2012 Medical SUB-Q, Drug Center form: INJ, QMon, Dosing Weight 72.006, kg, For Oncology Patients, Start date: 06/09/13 9:00:00, Duration: 30 day, Stop date: 07/07/13 9:00:00(Same as: Procrit) epoetin jyotsna 10,000 unit/1 ml VL predniSONE 30 mg, 3 tab, No Longer [facility] 06/09[facility] Route: PO, Active 2012 Medical Drug form: Center TAB, Daily, Dosing Weight 72.006, kg, Start date: 06/09/13 9:00:00, Duration: 30 day, Stop date: 07/08/13 9:00:00(Same as: PredniSONE) Take with food. diphenhydrAMINE 25 mg, 1 cap, Inactive [facility] 06/08[facility] Route: PO2012 Medical Drug form: [place] CAP, ONCE, Dosing Weight 72.006, kg, Start date: 06/08/13 16:34:00, Stop date: 06/08/13 16:34:00(Same as: Benadryl) acetaminophen 325 650 mg, 2 tab, Inactive [facility] [place] [address] mg oral tablet Route: PO2012 Medical Drug form: [place] TAB, ONCE, Dosing Weight 72.006, kg, Start date: 06/08/13 16:34:00, Stop date: 06/08/13 16:34:00Do not exceed 4 gm/day. (Same as: Tylenol) Benadryl 50 mg, 1 cap, [facility]: PO2012 [facility] Drug form: [place] CAP, ONCE, Dosing Weight 72.006, kg, Start date: 06/08/13 11:53:00, Stop date: 06/08/13 11:53:00(Same as: Benadryl) Tylenol 650 mg, 2 tab, Inactive [place] [address] Route: PO2012 Medical Drug form: [place] TAB, ONCE, Dosing Weight 72.006, kg, Start date: 06/08/13 11:53:00, Stop date: 06/08/13 11:53:00Do not exceed 4 gm/day. (Same as: Tylenol) IVIG 10 % solution 30 gm, 300 mL, Inactive [place] [id number] [place] [address] Route: IV, 2012 Medical Drug form: [place] SOLN, ONCE, Dosing Weight 72.006, kg, Start date: 06/08/13 11:52:00, Stop date: 06/08/13 11:52:00Begin at 0.5 mg/kg/min (0.03 grams/kg/hr). gradually increase as tolerated . Not to exceed 4 mg/kg/min (0.24 grams/kg/hr). Lot# Mfg: "blood product derivative" methylPREDNISolone 40 mg, 1 mL, Inactive [facility] 06/08[facility] Route: IVP, 2012 Medical Drug form: [place] INJ, ONCE, Dosing Weight 72.006, kg, Priority: NOW, Start date: 06/08/13 11:05:00, Stop date: 06/08/13 11:05:00(Same as:Solu-Medrol , A-Methapred) anti-thymocyte 50 mg, Route: Inactive [facility] 06/08[facility] globulin (rabbit) IVPB, ONCE, 2012 Medical + Sodium Chloride Dosing Weight Center 0.9% IV 100 mL 72.006, kg, Start date: 06/08/13 10:09:00, Stop date: 06/08/13 10:09:00LOT#: EXP: Final CONC must NOT exceed 0.5mg/ml; Send 0.22 micron filter. *THYMOGLOBULIN * Use 0.22 micron filter; Infuse over 6hr; Call 2hr ahead (Same as: Thymoglobulin (rabbit)) "blood product derivative" sodium 30 mmol, 30 Inactive [facility] 06/08[facility] glycerophosphate + mL, Route: IV, 2012 Medical Sodium Chloride Drug form: [place] 0.9% IV 250 mL INJ, ONCE, Dosing Weight 72.006, kg, Start date: 06/08/13 9:44:00, Stop date: 06/08/13 9:44:00Same as: Glycophos Non-Formulary magnesium oxide 400 mg, 1 tab, No Longer [facility] 06/08[facility] Route: PO, Active 2012 Medical Drug form: [place] TAB, Daily, Dosing Weight 72.006, kg, Start date: 06/08/13 9:00:00, Duration: 30 day, Stop date: 07/07/13 9:00:00(Same as: Mag-Ox 400) Magnesium oxide [id number] elemental magnesium Dose=____mg magnesium oxide (___mg elemental magnesium) anti-thymocyte 50 mg, Route: Inactive [facility] 06/07[facility] globulin (rabbit) IVPB, ONCE, 2012 Medical + Sodium Chloride Dosing Weight [place] 0.9% IV 100 mL 72.006, kg, Start date: 06/07/13 12:00:00, Stop date: 06/07/13 12:00:00LOT#: EXP: Final CONC must NOT exceed 0.5mg/ml; Send 0.22 micron filter. *THYMOGLOBULIN * Use 0.22 micron filter; Infuse over 6hr; Call 2hr ahead (Same as: Thymoglobulin (rabbit)) "blood product derivative" methylPREDNISolone 40 mg, 1 mL, Inactive [place] [address] SODium SUCCinate Route: IVP, 2012 Medical Drug form: [place] INJ, ONCE, Dosing Weight 72.006, kg, Start date: 06/07/13 11:30:00, Stop date: 06/07/13 11:30:00(Same as:Solu-Medrol , A-Methapred) Benadryl 50 mg, 1 cap, Inactive [place] [address] Route: PO2012 Medical Drug form: [place] CAP, ONCE, Dosing Weight 72.006, kg, Start date: 06/07/13 11:30:00, Stop date: 06/07/13 11:30:00(Same as: Benadryl) Tylenol 650 mg, 2 tab, Inactive [place] [id number] [place] [address] Route: PO2012 Medical Drug form: [place] TAB, ONCE, Dosing Weight 72.006, kg, Start date: 06/07/13 11:30:00, Stop date: 06/07/13 11:30:00Do not exceed 4 gm/day. (Same as: Tylenol) Epogen 15,000 unit, Inactive [place] [address] 0.75 mL, 2012 Medical Route: IV, Center Drug form: INJ, ONCE, Dosing Weight 72.006, kg, For Oncology Patients, Start date: 06/07/13 10:41:00, Stop date: 06/07/13 10:41:00(Same as: Procrit) Procrit 20,000 unit/ml VL. For non-dialysis use in adult only. To be used in dialysis for children; Contains different preservative. sodium 30 mmol, 30 Inactive [place] [address] glycerophosphate + mL, Route: IV, 2012 Medical Sodium Chloride Drug form: [place] 0.9% IV 250 mL INJ, ONCE, Dosing Weight 72.006, kg, Start date: 06/07/13 10:00:00, Stop date: 06/07/13 10:00:00Same as: Glycophos Non-Formulary MiraLax 17 gm, 1 pkt, No Longer [facility] Route: PO, Active 2012 Medical Drug form: [place] PWDR, Daily, Dosing Weight 72.006, kg, Start date: 06/07/13 9:00:00, Duration: 30 day, Stop date: 07/06/13 9:00:00Dissolv e in 8 oz of water or juice. (Same as: Miralax) sodium bicarbonate 1,300 mg, 2 No Longer [facility] tab, Route: Active 2012 Medical PO, Drug form: [place] TAB, TID, Dosing Weight 72.006, kg, Start date: 06/07/13 9:00:00, Duration: 30 day, Stop date: 07/06/13 17:00:00"Disso lve tablet in a glass of water prior to oral administration . STOMACH WARNING: To avoid serious injury, do not take until tablet is completely dissolved. It is very important not to take this product when overly full from food or drink." Lantus 20 unit, 0.2 [facility] mL, Route: Active Jorgei 2012 Medical SUB-Q, Drug Center form: INJ, Daily, Dosing Weight 72.006, kg, Start date: 06/07/13 9:00:00, Duration: 30 day, Stop date: 07/06/13 9:00:00Same as Lantus Solostar PEN "single patient use only" Stable for 28 days at room temperature. Expires in days from Date acetaminophen 650 mg, 2 tab, Inactive [facility] Route: PO, 2012 Medical Drug form: [place] TAB, ONCE, Dosing Weight 72.006, kg, Start date: 06/07/13 7:48:00, Stop date: 06/07/13 7:48:00Do not exceed 4 gm/day. (Same as: Tylenol) diphenhydrAMINE 50 mg, 1 cap, Inactive [facility] 06/07[facility] Route: PO, 2012 Medical Drug form: [place] CAP, ONCE, Dosing Weight 72.006, kg, Start date: 06/07/13 7:48:00, Stop date: 06/07/13 7:48:00(Same as: Benadryl) anti-thymocyte 50 mg, Route: Inactive [facility] 06/07[facility] globulin (rabbit) IVPB, ONCE, 2012 Medical + Sodium Chloride Dosing Weight Center 0.9% IV 100 mL 72.006, kg, Start date: 06/07/13 7:48:00, Stop date: 06/07/13 7:48:00LOT#: EXP: Final CONC must NOT exceed 0.5mg/ml; Send 0.22 micron filter. *THYMOGLOBULIN * Use 0.22 micron filter; Infuse over 6hr; Call 2hr ahead (Same as: Thymoglobulin (rabbit)) "blood product derivative" methylPREDNISolone 40 mg, 1 mL, Inactive [facility] 06/07[facility] SODium SUCCinate Route: IVP, 2012 Medical Drug form: [place] INJ, ONCE, Dosing Weight 72.006, kg, Start date: 06/07/13 7:48:00, Stop date: 06/07/13 7:48:00(Same as:Solu-Medrol , A-Methapred) sodium 30 mmol, 30 Inactive [facility] 06/07[facility] glycerophosphate + mL, Route: IV, 2012 Medical Sodium Chloride Drug form: [place] 0.9% IV 250 mL INJ, ONCE, Dosing Weight 72.006, kg, Start date: 06/07/13 7:44:00, Stop date: 06/07/13 7:44:00Same as: Glycophos Non-Formulary anti-thymocyte 50 mg, Route: Inactive [place] 06/07[facility] globulin (rabbit) IVPB, ONCE, 2012 Medical + Sodium Chloride Dosing Weight Center 0.9% IV 250 mL 72.006, kg, Start date: 06/06/13 18:00:00, Stop date: 06/06/13 18:00:00LOT#: EXP: Final CONC must NOT exceed 0.5mg/ml; Send 0.22 micron filter. *THYMOGLOBULIN * Use 0.22 micron filter; Infuse over 6hr; Call 2hr ahead (Same as: Thymoglobulin (rabbit)) "blood product derivative" methylPREDNISolone 48 mg, 1.2 mL, Inactive [facility] 06/06[facility] SODium SUCCinate Route: IVP, 2012 Medical Drug form: [place] INJ, ONCE, Dosing Weight 72.006, kg, Start date: 06/06/13 17:30:00, Stop date: 06/06/13 17:30:00(Same as:Solu-Medrol , A-Methapred) acetaminophen 650 mg, 2 tab, Inactive [facility] 06/06[facility] Route: PO2012 Medical Drug form: [place] TAB, ONCE, Dosing Weight 72.006, kg, Start date: 06/06/13 17:30:00, Stop date: 06/06/13 17:30:00Do not exceed 4 gm/day. (Same as: Tylenol) diphenhydrAMINE 50 mg, 1 cap, Inactive [facility] 06/06[facility] Route: PO, 2012 Medical Drug form: [place] CAP, ONCE, Dosing Weight 72.006, kg, Start date: 06/06/13 17:30:00, Stop date: 06/06/13 17:30:00(Same as: Benadryl) NovoLog FlexPen 10 unit, 0.1 No Longer Zak 06/06[facility] mL, Route: Active 2012 Medical SUB-Q, Drug Center form: SOLN, Before Dinner, Dosing Weight 72.006, kg, Start date: 06/06/13 16:30:00, Stop date: 07/05/13 16:30:00Roll in palms of hands gently; Do not shake vigorously. (Same as: NovoLog) "single patient use only" Stable for 28 days at room temperature. Expires in days from Date Lantus 5 unit, 0.05 Inactive [facility] 06/06[facility] mL, Route: 2012 Medical SUB-Q, Drug Center form: INJ, ONCE, Dosing Weight 72.006, kg, Start date: 06/06/13 10:52:00, Stop date: 06/06/13 10:52:00Same as Lantus Solostar PEN "single patient use only" Stable for 28 days at room temperature. Expires in days from Date Privigen 30 gm, 300 mL, Inactive [facility] Route: IV, 2012 Medical Drug form: [place] SOLN, ONCE, Dosing Weight 72.006, kg, Start date: 06/06/13 10:48:00, Stop date: 06/06/13 10:48:00 Benadryl 25 mg, 0.5 mL, Inactive [facility] 06/06[facility] Route: IV, 2012 Medical Drug form: [place] INJ, ONCE, Dosing Weight 72.006, kg, Start date: 06/06/13 10:47:00, Stop date: 06/06/13 10:47:00(Same as: Benadryl) acetaminophen 650 mg, 20.3 Inactive [facility] 06/06[facility] mL, Route: PO, 2012 Medical Drug form: [place] LIQ, ONCE, Dosing Weight 72.006, kg, Start date: 06/06/13 10:46:00, Stop date: 06/06/13 10:46:00Max acetaminophen= 4000mg/day (4 gm/day). (Same as: Tylenol) Privigen 35 mg, Route: Inactive [facility] 06/06[facility] IV, ONCE, 2012 Medical Dosing Weight [place] 72.006, kg, Start date: 06/06/13 10:45:00, Stop date: 06/06/13 10:45:00 NIFEdipine 60 mg, 1 tab, No Longer [place] [facility] extended release Route: PO, Active 2012 Medical Drug form: [place] ERTAB, BID, Dosing Weight 72.006, kg, Start date: 06/05/13 21:00:00, Duration: 30 day, Stop date: 07/05/13 9:00:00(Same as: Adalat CC, Procardia XL) Give on empty stomach. Take 1 hour before or 2 hours after meal; "Avoid grapefruit and grapefruit juice". Do not crush anti-thymocyte 100 mg, Route: Inactive [facility] globulin (rabbit) IVPB, ONCE, 2012 Medical + Sodium Chloride Dosing Weight [place] 0.9% IV 200 mL 72.006, kg, Start date: 06/05/13 17:00:00, Stop date: 06/05/13 17:00:00LOT#: EXP: Final CONC must NOT exceed 0.5mg/ml; Send 0.22 micron filter. *THYMOGLOBULIN * Use 0.22 micron filter; Infuse over 6hr; Call 2hr ahead (Same as: Thymoglobulin (rabbit)) "blood product derivative" methylPREDNISolone 40 mg, 1 mL, Inactive [facility] SODium SUCCinate Route: IVP, 2012 Medical Drug form: [place] INJ, ONCE, Dosing Weight 72.006, kg, Start date: 06/05/13 16:30:00, Stop date: 06/05/13 16:30:00(Same as:Solu-Medrol , A-Methapred) acetaminophen 650 mg, 2 tab, Inactive [facility] Route: PO2012 Medical Drug form: [place] TAB, ONCE, Dosing Weight 72.006, kg, Start date: 06/05/13 16:30:00, Stop date: 06/05/13 16:30:00Do not exceed 4 gm/day. (Same as: Tylenol) diphenhydrAMINE 50 mg, 2 cap, Inactive [facility] Mis Route: PO2012 Medical Drug form: [place] CAP, ONCE, Dosing Weight 72.006, kg, Start date: 06/05/13 16:30:00, Stop date: 06/05/13 16:30:00(Same as: Benadryl) belladonna-opium 1 supp, Route: No Longer Shivamanya [facility] 16.2 mg-30 mg HI, Drug Form: Active Eva 2012 Medical rectal suppository SUPP, Dosing Center Weight 72.006, kg, Q12H, PRN Spasm, Start date: 06/05/13 13:52:00, Duration: 30 day, Stop date: 07/05/13 13:51:00(Same As: B & O Supp 15A) Ditropan 5 mg, 1 tab, No Longer Zak [place] Route: PO, Active 2012 Medical Drug form: [place] TAB, TID, Dosing Weight 72.006, kg, Priority: NOW, Start date: 06/05/13 13:48:00, Duration: 30 day, Stop date: 07/05/13 13:00:00Same as: Ditropan) albumin human 5% 300 gm, 6,000 No Longer [place] intravenous mL, 0 ml/hr, Active 2012 Medical solution Route: IVPB, [place] Drug Form: INJ, Dosing Weight 72.006, kg, Every Other Day, Start date: 06/05/13 13:00:00, Duration: 4 doses or times, Stop date: 06/11/13 9:00:00LOT#: M fg: (Same as: Albuminar) "blood product derivative" ciprofloxacin 500 mg, 1 tab, No Longer Shivakrystleya [place] Route: PO, Active Efraín2012 Medical Drug form: [place] TAB, [id number], Dosing Weight 72.006, kg, Start date: 06/05/13 12:00:00, Duration: 30 day, Stop date: 07/05/13 0:00:00May interfere w/enteral feedings - Take 1 hr before or 2 hrs after antacids, dairy pdt & minerals. On empty stomach. hydrALAZINE 20 mg, 1 mL, No Longer Fernando [place] Route: IVP, Active 2012 Medical Drug form: [place] INJ, Q4H, Dosing Weight 72.006, kg, PRN Hypertension, Start date: 06/05/13 5:45:00, Duration: 30 day, Stop date: 07/05/13 5:44:00(Same as: Apresoline) Push over 5 minutes insulin aspart 6 unit, 0.06 No Longer [place] [address] [place] mL, Route: Active 2012 Medical SUB-Q, Drug Center form: SOLN, TID-Before Meals, Dosing Weight 72.006, kg, PRN Blood Glucose Results, Start date: 06/05/13 4:09:00, Duration: 30 day, Stop date: 07/05/13 4:08:00Roll in palms of hands gently; Do not shake vigorously. (Same as: NovoLog) "single patient use only" Stable for 28 days at room temperature. Expires in days from Date Dextrose 50% 12.5 gm, 25 No Longer [place] 06/05[facility] Syringe mL, Route: Active 2012 Medical IVP, Drug Center Form: INJ, Dosing Weight 72.006, kg, PRN, PRN Blood Glucose Results, Start date: 06/05/13 4:09:00, Duration: 30 day, Stop date: 07/05/13 4:08:00 glucagon 1 mg, Route: No Longer [place] [address] IM, Drug form: Active 2012 Medical PDR/INJ, PRN, Center Dosing Weight 72.006, kg, PRN Blood Glucose Results, Start date: 06/05/13 4:09:00, Duration: 30 day, Stop date: 07/05/13 4:08:00 insulin aspart 6 unit, Route: Inactive [place] 06/05[facility] SUB-Q, ONCE, 2012 Medical Dosing Weight Center 72.006, kg, Start date: 06/05/13 4:06:00, Stop date: 06/05/13 4:06:00 hydrALAZINE 20 mg, 1 mL, Inactive [place] 06/05[facility] Mis Route: IV, 2012 Medical Drug form: Center INJ, ONCE, Dosing Weight 72.006, kg, Start date: 06/05/13 3:48:00, Stop date: 06/05/13 3:48:00(Same as: Apresoline) Push over 5 minutes hydrALAZINE 10 mg, 0.5 mL, Inactive [place] 06/05[facility] Mis Route: IV, 2012 Medical Drug form: [place] INJ, ONCE, Dosing Weight 72.006, kg, Start date: 06/05/13 1:49:00, Stop date: 06/05/13 1:49:00(Same as: Apresoline) Push over 5 minutes Saline Flush 0.9% 5 ml, Route: No Longer Alice [facility] IVP, Drug Active 2012 Medical Form: [facility], [place] Dosing Weight 72.006, kg, Q12H, Start date: 06/04/13 21:00:00, Duration: 30 day, Stop date: 07/04/13 9:00:00(Same as: BD Posiflush) CellCept 1,000 mg, 2 No Longer Zak [facility] tab, Route: Active 2012 Medical PO, Drug form: [place] TAB, [id number], Dosing Weight 72.006, kg, Start date: 06/04/13 20:00:00, Stop date: 07/04/13 8:00:00, 1 hour before or 2 hours after meals1 hour before or 2 hours after mealsSEPARATE ANTACIDS from Cellcept by 2 hrs. (Same As: CellCept) Saline Flush 0.9% 5 ml, Route: No Longer [place] 06/04[facility] IVP, Drug Active 2012 Medical Form: INJ, [place] Dosing Weight 72.006, kg, PRN, PRN Line Flush, Start date: 06/04/13 14:01:00, Duration: 30 day, Stop date: 07/04/13 14:00:00(Same as: BD Posiflush) anti-thymocyte IV, 33.33 Inactive Shanthi 06/04[facility] globulin (rabbit) ml/hr, ONCE, Eva 2012 Medical Start date: [place] 06/04/13 14:00:00, 200 mlLOT#: EXP: Final CONC must NOT exceed 0.5mg/ml; Send 0.22 micron filter. *THYMOGLOBULIN * Use 0.22 micron filter; Infuse over 6hr; Call 2hr ahead (Same as: Thymoglobulin (rabbit)) "blood product derivative&quo t; Dextrose 50% 25 gm, 50 mL, No Longer [address] Syringe Route: IVP, Active 2012 Medical Drug Form: [place] INJ, Dosing Weight 72.006, kg, PRN, PRN Blood Glucose Results, Start date: 06/04/13 13:59:00, Duration: 30 day, Stop date: 07/04/13 13:58:00 glucagon 1 mg, Route: No Longer [address] IM, Drug form: Active 2012 Medical PDR/INJ, PRN, Center Dosing Weight 72.006, kg, PRN Blood Glucose Results, Start date: 06/04/13 13:59:00, Duration: 30 day, Stop date: 07/04/13 13:58:00 insulin aspart 2 unit, 0.02 No Longer [place] [address] mL, Route: Active 2012 Medical SUB-Q, Drug Center form: SOLN, TID-Before Meals, Dosing Weight 72.006, kg, PRN Blood Glucose Results, Start date: 06/04/13 13:59:00, Duration: 30 day, Stop date: 07/04/13 13:58:00Roll in palms of hands gently; Do not shake vigorously. (Same as: NovoLog) "single patient use only" Stable for 28 days at room temperature. Expires in days from Date SoluMedrol + 250 mg, 4 mL, Inactive [facility] Sodium Chloride Route: IV, Efraín2012 Medical 0.9% IV 50 mL Drug form: [place] INJ, ONCE, Dosing Weight 72.006, kg, Start date: 06/04/13 13:50:00, Stop date: 06/04/13 13:50:00(Same as:Solu-Medrol , A-Methapred) Benadryl 25 mg, 0.5 mL, Inactive [facility] Route: IV, Efraínkia2012 Medical Drug form: [place] INJ, ONCE, Start date: 06/04/13 13:30:00, Stop date: 06/04/13 13:30:00(Same as: Benadryl) Tylenol 650 mg, 2 tab, [facility] Route: PO, Eva 2012 Medical Drug form: [place] TAB, ONCE, Start date: 06/04/13 13:30:00, Stop date: 06/04/13 13:30:00Do not exceed 4 gm/day. (Same as: Tylenol) acetaminophen 650 mg, Route: Inactive [facility] PO, Drug form: Eva 2012 Medical TAB, ONCE, Center Dosing Weight 72.006, kg, Start date: 06/04/13 11:39:00, Stop date: 06/04/13 11:39:00 Thymoglobulin 100 mg, Route: Inactive [facility] 06/04[facility] IV, ONCE, [facility] Medical Dosing Weight [place] 72.006, kg, Specify dose date and time, Start date: 06/04/13 11:38:00, Duration: 1 doses or times, Stop date: 06/04/13 11:38:00 Benadryl 25 mg, Route: Inactive [facility] 06/04[facility] IVP, ONCE, Eva 2012 Medical Dosing Weight [place] 72.006, kg, Start date: 06/04/13 11:38:00, Stop date: 06/04/13 11:38:00 NovoLog FlexPen 8 unit, 0.08 No Longer Zak 06/04[facility] mL, Route: Active 2012 [facility] SUB-Q, Drug Center form: SOLN, Before Lunch, Dosing Weight 72.006, kg, Start date: 06/04/13 11:30:00, Stop date: 07/03/13 11:30:00Roll in palms of hands gently; Do not shake vigorously. (Same as: NovoLog) "single patient use only" Stable for 28 days at room temperature. Expires in days from Date magnesium sulfate 2 gm, 50 mL, Inactive [facility] Route: IVPBEva 2012 Medical Drug form: [place] INJ, Q2H, Dosing Weight 72.006, kg, Total dose=4 gm, Start date: 06/04/13 10:00:00, Duration: 2 doses or times, Stop date: 06/04/13 12:00:00 Nifediac CC 60 mg, 1 tab, No Longer [place] 06/04[facility] Route: PO, Active 2012 Medical Drug form: Center ERTAB, Daily, Dosing Weight 72.006, kg, Start date: 06/04/13 9:00:00, Duration: 30 day, Stop date: 07/03/13 9:00:00(Same as: Adalat CC, Procardia XL) Give on empty stomach. Take 1 hour before or 2 hours after meal; "Avoid grapefruit and grapefruit juice". Do not crush Valcyte 450 mg, 1 tab, No Longer [facility] 06/04[facility] Route: PO, Active 2012 Medical Drug form: [place] TAB, Daily, Dosing Weight 72.006, kg, Start date: 06/04/13 9:00:00, Duration: 30 day, Stop date: 07/03/13 9:00:00(Same as: Valcyte) "Do Not Crush" predniSONE 80 mg, 4 tab, No Longer [facility] Route: PO, Active 2012 Medical Drug form: Center TAB, Daily, Dosing Weight 72.006, kg, Start date: 06/04/13 9:00:00, Duration: 30 day, Stop date: 07/03/13 9:00:00Take with food. Lantus 15 unit, 0.15 No Longer [facility] 06/04[facility] mL, Route: Active 2012 Medical SUB-Q, Drug Center form: INJ, Daily, Dosing Weight 72.006, kg, Start date: 06/04/13 9:00:00, Duration: 30 day, Stop date: 07/03/13 9:00:00Same as Lantus Solostar PEN "single patient use only" Stable for 28 days at room temperature. Expires in days from Date Bactrim 1 tab, Route: No Longer [facility] 06/04[facility] PO, Drug Form: Active 2012 Medical TAB, Dosing Center Weight 72.006, kg, Daily, Start date: 06/04/13 9:00:00, Duration: 30 day, Stop date: 07/03/13 9:00:00On empty stomach with a glass of water. 1 hr before meals (Same As: Bactrim, Septra) cholecalciferol 2,000 No Longer Shivamanya [facility] 2000 intl units IntlUnit, 1 Active 2012 Medical oral tablet cap, Route: Center PO, Drug form: CAP, Daily, Dosing Weight 72.006, kg, Start date: 06/04/13 9:00:00, Duration: 30 day, Stop date: 07/03/13 9:00:00Same as: Vitamin D3 NovoLog FlexPen 4 unit, 0.04 No Longer Zak [facility] mL, Route: Active 2012 Medical SUB-Q, Drug Center form: SOLN, Before Breakfast, Dosing Weight 72.006, kg, Start date: 06/04/13 7:30:00, Stop date: 07/03/13 7:30:00Roll in palms of hands gently; Do not shake vigorously. (Same as: NovoLog) "single patient use only" Stable for 28 days at room temperature. Expires in days from Date insulin aspart 4 unit, 0.04 No Longer Zilske [facility] mL, Route: Active 2012 Medical SUB-Q, Drug Center form: SOLN, ONCE, Dosing Weight 72.006, kg, Start date: 06/03/13 22:42:00, Stop date: 06/03/13 22:42:00Roll in palms of hands gently; Do not shake vigorously. (Same as: NovoLog) "single patient use only" Stable for 28 days at room temperature. Expires in days from Date Coreg 12.5 mg, 1 No Longer Shivahollyya [facility] tab, Route: Active 2012 Medical PO, Drug form: Center TAB, Q12H, Dosing Weight 72.006, kg, Start date: 06/03/13 21:00:00, Duration: 30 day, Stop date: 07/03/13 9:00:00Give with food. (Same As: Coreg) Pepcid 20 mg oral 20 mg, 1 tab, No Longer Shivamanya [facility] tablet Route: PO, Active 2012 Medical Drug form: [place] TAB, Q12H, Dosing Weight 72.006, kg, Start date: 06/03/13 21:00:00, Duration: 30 day, Stop date: 07/03/13 9:00:00(Same as: Pepcid) Prograf 3 mg, 3 cap, No Longer Zak [facility] Route: PO, Active 2012 Medical Drug form: [place] CAP, [id number], Dosing Weight 72.006, kg, Start date: 06/03/13 21:00:00, Stop date: 07/03/13 8:00:00, Pediatric DosingPediatri c DosingAvoid grapefruit and grapefruit juice. (Same As: Prograf) CellCept 1,000 mg, 2 No Longer [facility] 06/04[facility] tab, Route: [facility] PO, Drug form: [place] TAB, [id number], Dosing Weight 72.006, kg, Start date: 06/03/13 20:00:00, Duration: 30 day, Stop date: 07/03/13 8:00:00, 1 hour before or 2 hours after meals1 hour before or 2 hours after mealsSEPARATE ANTACIDS from Cellcept by 2 hrs. (Same As: CellCept) Privigen 35 gm, 350 mL, Inactive [facility] Route: IV, 2012 Medical Drug form: [place] SOLN, ONCE, Dosing Weight 72.006, kg, Start date: 06/03/13 18:30:00, Stop date: 06/03/13 18:30:00Begin at 0.5 mg/kg/min (0.03 grams/kg/hr). gradually increase as tolerated . Not to exceed 4 mg/kg/min (0.24 grams/kg/hr). Lot# Mfg: "blood product derivative" SoluCortef 100 mg, 2 mL, Inactive [facility] Route: IV, 2012 Medical Drug form: [place] PDR/INJ, ONCE, Dosing Weight 72.006, kg, Start date: 06/03/13 18:00:00, Stop date: 06/03/13 18:00:00(Same as: Tyson) Benadryl 25 mg, 0.5 mL, Inactive [facility] 06/04[facility] Route: IVPEva 2012 Medical Drug form: [place] INJ, ONCE, Dosing Weight 72.006, kg, Start date: 06/03/13 18:00:00, Stop date: 06/03/13 18:00:00(Same as: Benadryl) Tylenol 650 mg, 2 tab, Inactive [facility] 06/04[facility] Route: PO, Eva 2012 Medical Drug form: [place] TAB, ONCE, Dosing Weight 72.006, kg, Start date: 06/03/13 18:00:00, Stop date: 06/03/13 18:00:00Do not exceed 4 gm/day. (Same as: Tylenol) Privigen 35 gm, 350 mL, Inactive [facility] 06/03[facility] Route: [facility], [facility] Medical Drug form: [place] SOLN, ONCE, Dosing Weight 72.006, kg, Start date: 06/03/13 17:32:00, Stop date: 06/03/13 17:32:00Begin at 0.5 mg/kg/min (0.03 grams/kg/hr). gradually increase as tolerated . Not to exceed 4 mg/kg/min (0.24 grams/kg/hr). Lot# Mfg: "blood product derivative" diphenhydrAMINE 25 mg, 0.5 mL, Inactive [facility] 06/03[facility] Route: IVEva 2012 Medical Drug form: [place] INJ, ONCE, Dosing Weight 72.006, kg, Start date: 06/03/13 17:31:00, Stop date: 06/03/13 17:31:00(Same as: Benadryl) acetaminophen 650 mg, 2 tab, Inactive [facility] 06/03[facility] Route: PO, Eva 2012 Medical Drug form: [place] TAB, ONCE, Dosing Weight 72.006, kg, Start date: 06/03/13 17:30:00, Stop date: 06/03/13 17:30:00Do not exceed 4 gm/day. (Same as: Tylenol) hydrocortisone 100 mg, 2 mL, Inactive [facility] Route: IV, Mitchelalg2012 Medical Drug form: [place] PDR/INJ, ONCE, Dosing Weight 72.006, kg, Start date: 06/03/13 17:30:00, Stop date: 06/03/13 17:30:00(Same as: Solu-Cortef) Lyrica 50 mg, 1 cap, No Longer [facility] Route: PO, Active Mitchel2012 Medical Drug form: [place] CAP, After Dinner, Dosing Weight 72.006, kg, Start date: 06/03/13 17:00:00, Duration: 30 day, Stop date: 07/02/13 17:00:00Same as Lyrica nystatin 100,000 500,000 unit, No Longer [facility] units/mL oral 5 mL, Route: Active Mitchel2012 Medical suspension S&SPIT, Drug Center form: SUSP, TID, Dosing Weight 72.006, kg, Start date: 06/03/13 17:00:00, Duration: 30 day, Stop date: 07/03/13 13:00:00(Same as:Mycostatin) Shake well. sodium bicarbonate 650 mg, 1 tab, No Longer Zak [facility] 650 mg oral tablet Route: PO, Active 2012 Medical Drug form: [place] TAB, BID, Dosing Weight 72.006, kg, Start date: 06/03/13 17:00:00, Duration: 30 day, Stop date: 07/03/13 9:00:00"Dissol ve tablet in a glass of water prior to oral administration . STOMACH WARNING: To avoid serious injury, do not take until tablet is completely dissolved. It is very important not to take this product when overly full from food or drink." NovoLog FlexPen 4 unit, 0.04 No Longer [facility] 06[facility] mL, Route: Active Mitchelalgrachel 2012 Medical SUB-Q, Drug Center form: SOLN, Before Dinner, Dosing Weight 72.006, kg, Start date: 06/03/13 16:30:00, Duration: 30 day, Stop date: 07/02/13 16:30:00Roll in palms of hands gently; Do not shake vigorously. (Same as: NovoLog) "single patient use only" Stable for 28 days at room temperature. Expires in days from Date Inkom 10/325 oral 1 tab, Route: [facility] Longer [facility] [place] tablet PO, Drug Form: Active [place] 2012 Medical TAB, Dosing Center Weight 72.006, kg, Q6H, PRN Pain, Start date: 06/03/13 14:26:00, Duration: 30 day, Stop date: 07/03/13 14:25:00Do not exceed 4gm/day of acetaminophen. (Same as: Inkom 325/10) senna 8.6 mg oral 8.6 mg, 1 tab, No Longer Shivamanya [place] tablet Route: PO, Active [place] 2012 Medical Drug Form: Center TAB, Dosing Weight 72.006, kg, Bedtime, PRN Constipation, Start date: 06/03/13 14:26:00, Duration: 30 day, Stop date: 07/03/13 14:25:00(Same as: Senokot) docusate sodium 100 mg, 1 cap, No Longer Shivahollyya [place] 100 mg oral Route: PO, Active [place] 2012 Medical capsule Drug form: Center CAP, Daily, Dosing Weight 72.006, kg, PRN Constipation, Start date: 06/03/13 14:26:00, Duration: 30 day, Stop date: 07/03/13 14:25:00(Same as: Colace) (Do Not Crush) DDAVP + Sodium 30 microgram, Inactive De Golovine [facility] Chloride 0.9% IV 2 mL, Route: 2013 Medical 50 mL IVPB, Drug Center form: INJ, ONCE, Dosing Weight 72.006, kg, Priority: STAT, Start date: 06/03/13 12:09:00, Stop date: 06/03/13 12:09:00(Same As: DDAVP) hydromorphone 0.5 mg, 0.25 No Longer Gutierrez [place] mL, Route: Active 2012 Medical IVP, Drug Center form: INJ, Q5Min, Dosing Weight 72.006, kg, PRN Pain Score 7-10, Start date: 06/03/13 11:43:00, Duration: 4 doses or times, Stop date: 06/04/13 0:00:00Same as: Dilaudid ondansetron 4 mg, 2 mL, No Longer Gutierrez [facility] Route: IVP, Active 2012 Medical Drug form: Center INJ, ONCE, Dosing Weight 72.006, kg, PRN Nausea & Vomiting, Start date: 06/03/13 11:43:00(Same as: Zofran) naloxone 0.04 mg, 0.1 No Longer Gutierrez [facility] mL, Route: Active 2012 Medical IVP, Drug Center form: INJ, Q2MIN, Dosing Weight 72.006, kg, PRN Narcotic Reversal, Start date: 06/03/13 11:43:00, Duration: 8 doses or times, Stop date: 06/04/13 0:00:00Same as Narcan flumazenil 0.2 mg, 2 mL, No Longer Gutierrez [place] Route: IVP, Active 2012 Medical Drug form: Center INJ, PRN, Dosing Weight 72.006, kg, PRN Benzodiazepine Reversal, Initial dose, Start date: 06/03/13 11:43:00, Duration: 1 day, Stop date: 06/04/13 11:42:00(Same as: Romazicon) Ancef 2 gm, Route: Inactive [facility] [place] IVPB, ONCE, 2012 Medical Dosing Weight Center 72.006, kg, Start date: 06/03/13 10:48:00, Duration: 1 doses or times, Stop date: 06/03/13 10:48:00 sulfamethoxazole-t 1 tab, Route: Inactive [facility]ak [place] rimethoprim 400 PO, Drug Form: 2012 Medical mg-80 mg oral TAB, Dosing Center tablet Weight 71, kg, Q-M-W-F, Start date: 06/02/13 9:00:00, Duration: 30 day, Stop date: 06/30/13 9:00:00On empty stomach with a glass of water. 1 hr before meals (Same As: Bactrim, Septra) Epogen 10,000 unit, 1 Inactive [facility] mL, Route: 2012 Medical SUB-Q, Drug Center form: INJ, QMon, Dosing Weight 71.9, kg, For Oncology Patients, Start date: 06/02/13 9:00:00, Duration: 30 day, Stop date: 06/30/13 9:00:00(Same as: Procrit) epoetin jyotsna 10,000 unit/1 ml VL valganciclovir 450 mg, 1 tab, Inactive [facility] Route: PO, 2012 Medical Drug form: [place] TAB, QMon, Dosing Weight 71, kg, Start date: 06/02/13 9:00:00, Duration: 30 day, Stop date: 06/30/13 9:00:00(Same as: Valcyte) "Do Not Crush" normal saline 0.9% 1,000 mL, No Longer [facility] IV 1,000 mL Rate: 150 Active 2012 Medical ml/hr, Infuse [place] over: 6.7 hr, Route: IV, Dosing Weight 71.9 kg, Total Volume: 1,000, Start date: 06/01/13 9:31:00, Duration: 30 day, Stop date: 07/01/13 9:30:00 sodium bicarbonate 1,300 mg, 2 No Longer [facility] tab, Route: Active 2012 Medical PO, Drug form: [place] TAB, BID, Dosing Weight 71.9, kg, Start date: 06/01/13 9:00:00, Duration: 30 day, Stop date: 06/30/13 17:00:00"Disso lve tablet in a glass of water prior to oral administration . STOMACH WARNING: To avoid serious injury, do not take until tablet is completely dissolved. It is very important not to take this product when overly full from food or drink." Prograf 4 mg, 4 cap, No Longer [facility] Route: PO, Active 2012 Medical Drug form: [place] CAP, [id number], Dosing Weight 71.9, kg, Start date: 06/01/13 8:00:00, Duration: 30 day, Stop date: 06/30/13 20:00:00Avoid grapefruit and grapefruit juice. (Same As: Prograf) insulin aspart 2 unit, 0.02 No Longer [facility] [place] mL, Route: Active 2012 Medical SUB-Q, Drug Center form: SOLN, Bedtime, Dosing Weight 71.9, kg, PRN Blood Glucose Results, Start date: 05/31/13 20:59:00, Duration: 30 day, Stop date: 06/30/13 20:58:00Roll in palms of hands gently; Do not shake vigorously. (Same as: NovoLog) "single patient use only" Stable for 28 days at room temperature. Expires in days from Date Dextrose 50% 12.5 gm, 25 No Longer [facility] [place] Syringe mL, Route: Active 2012 Medical IVP, Drug Center Form: INJ, Dosing Weight 71.9, kg, PRN, PRN Blood Glucose Results, Start date: 05/31/13 20:59:00, Duration: 30 day, Stop date: 06/30/13 20:58:00 glucagon 1 mg, Route: No Longer [facility] [place] IM, Drug form: Active 2012 Medical PDR/INJ, PRN, Center Dosing Weight 71.9, kg, PRN Blood Glucose Results, Start date: 05/31/13 20:59:00, Duration: 30 day, Stop date: 06/30/13 20:58:00 predniSONE 30 mg, 3 tab, Inactive [facility] [place] Route: PO, 2012 Medical Drug form: Center TAB, Daily, Dosing Weight 71, kg, Start date: 05/31/13 9:00:00, Duration: 30 day, Stop date: 06/29/13 9:00:00(Same as: PredniSONE) Take with food. Nifediac CC 60 mg, 1 tab, No Longer [facility] Route: PO, Active 2012 Medical Drug form: [place] ERTAB, Daily, Dosing Weight 71, kg, Start date: 05/31/13 9:00:00, Duration: 30 day, Stop date: 06/29/13 9:00:00(Same as: Adalat CC, Procardia XL) Give on empty stomach. Take 1 hour before or 2 hours after meal; "Avoid grapefruit and grapefruit juice". Do not crush insulin glargine 15 unit, 0.15 No Longer [facility] mL, Route: Active 2012 Medical SUB-Q, Drug Center form: INJ, Daily, Dosing Weight 71, kg, Start date: 05/31/13 9:00:00, Duration: 30 day, Stop date: 06/29/13 9:00:00Same as Lantus Solostar PEN "single patient use only" Stable for 28 days at room temperature. Expires in days from Date Pepcid 20 mg oral 20 mg, 1 tab, No Longer [facility] tablet Route: PO, Active 2012 Medical Drug form: Center TAB, Daily, Dosing Weight 71, kg, Start date: 05/31/13 9:00:00, Duration: 30 day, Stop date: 06/29/13 9:00:00(Same as: Pepcid) cholecalciferol 2,000 No Longer [facility] IntlUnit, 1 Active 2012 [facility] cap, Route: Center PO, Drug form: CAP, Daily, Dosing Weight 71, kg, Start date: 05/31/13 9:00:00, Duration: 30 day, Stop date: 06/29/13 9:00:00Same as: Vitamin D3 SoluMedrol + 500 mg, Route: No Longer [facility] Sodium Chloride IVPB, Drug Active 2012 Medical 0.9% IV 50 mL form: INJ, Center Daily, Dosing Weight 71.9, kg, Start date: 05/31/13 9:00:00, Duration: 3 doses or times, Stop date: 06/02/13 9:00:00(Same as:Solu-Medrol , A-Methapred) sodium bicarbonate 1,000 mL, No Longer [facility] 150 mEq + D5W Rate: 150 Active 2012 Medical 1,000 mL ml/hr, Infuse Center over: 7.7 hr, Route: IV, Dosing Weight 71.9 kg, Total Volume: 1,150 mL, Start date: 05/31/13 6:45:00, Duration: 30 day, Stop date: 06/30/13 6:44:00 Pepcid 20 mg, 1 tab, Inactive [facility] [place] Route: PO, 2012 Medical Drug form: [place] TAB, ONCE, Dosing Weight 71, kg, Priority: NOW, Start date: 05/30/13 21:15:00, Stop date: 05/30/13 21:15:00(Same as: Pepcid) Lyrica 50 mg, 1 cap, No Longer [facility] Route: PO, Active 2012 Medical Drug form: [place] CAP, Bedtime, Dosing Weight 71, kg, Start date: 05/30/13 21:00:00, Duration: 30 day, Stop date: 06/28/13 21:00:00Same as Lyrica carvedilol 12.5 mg, 1 No Longer [facility] tab, Route: Active 2012 Medical PO, Drug form: [place] TAB, Q12H, Dosing Weight 71, kg, Start date: 05/30/13 21:00:00, Duration: 30 day, Stop date: 06/29/13 9:00:00Give with food. (Same As: Coreg) tacrolimus 6 mg, 6 cap, No Longer [facility] Route: PO, Active 2012 Medical Drug form: [place] CAP, [id number], Dosing Weight 71, kg, Start date: 05/30/13 20:00:00, Duration: 30 day, Stop date: 06/29/13 8:00:00Avoid grapefruit and grapefruit juice. (Same As: Prograf) CellCept 1,000 mg, 2 No Longer [facility] [place] tab, Route: Active 2012 Medical PO, Drug form: [place] TAB, [id number], Dosing Weight 71, kg, Start date: 05/30/13 20:00:00, Duration: 30 day, Stop date: 06/29/13 8:00:00SEPARAT E ANTACIDS from Cellcept by 2 hrs. (Same As: CellCept) nystatin 100,000 500,000 unit, No Longer [facility] units/mL oral 5 mL, Route: Active 2012 Medical suspension S&SWALLOW, Center Drug form: SUSP, QID, Dosing Weight 71, kg, Start date: 05/30/13 17:00:00, Duration: 30 day, Stop date: 06/29/13 13:00:00(Same as:Mycostatin) Shake well. NovoLog FlexPen 4 unit, 0.04 No Longer [facility] 05/30/ [place] mL, Route: Active 2012 Medical SUB-Q, Drug Center form: SOLN, TID-Before Meals, Dosing Weight 71, kg, Start date: 05/30/13 16:30:00, Duration: 30 day, Stop date: 06/29/13 11:30:00Roll in palms of hands gently; Do not shake vigorously. (Same as: NovoLog) "single patient use only" Stable for 28 days at room temperature. Expires in days from Date heparin 5,000 unit, 1 No Longer [facility] 05/30/ [place] mL, Route: Active 2012 Medical SUB-Q, Drug Center form: INJ, Q8H, Dosing Weight 71, kg, Start date: 05/30/13 16:00:00, Duration: 30 day, Stop date: 06/29/13 8:00:00porcine heparin insulin aspart 1 unit, 0.01 No Longer [facility] 05/30/ [place] mL, Route: Active 2012 Medical SUB-Q, Drug Center form: SOLN, TID-Before Meals, Dosing Weight 71, kg, PRN Blood Glucose Results, Start date: 05/30/13 15:42:00, Duration: 30 day, Stop date: 06/29/13 15:41:00Roll in palms of hands gently; Do not shake vigorously. (Same as: NovoLog) "single patient use only" Stable for 28 days at room temperature. Expires in days from Date Dextrose 50% 12.5 gm, 25 No Longer [facility] 05/30/ [place] Syringe mL, Route: Active 2012 Medical IVP, Drug Center Form: INJ, Dosing Weight 71, kg, PRN, PRN Blood Glucose Results, Start date: 05/30/13 15:42:00, Duration: 30 day, Stop date: 06/29/13 15:41:00 glucagon 1 mg, Route: No Longer [facility] IM, Drug form: Active 2012 Medical PDR/INJ, PRN, Center Dosing Weight 71, kg, PRN Blood Glucose Results, Start date: 05/30/13 15:42:00, Duration: 30 day, Stop date: 06/29/13 15:41:00 Colace 100 mg oral 100 mg, 1 cap, No Longer [facility] capsule Route: PO, Active 2012 Medical Drug form: Center CAP, Daily, Dosing Weight 71, kg, PRN as needed for constipation, Start date: 05/30/13 15:29:00, Duration: 30 day, Stop date: 06/29/13 15:28:00(Same as: Colace) (Do Not Crush) Inkom 10/325 oral 1 tab, Route: No Longer [facility] tablet PO, Drug Form: Active 2012 Medical TAB, Dosing Center Weight 71, kg, Q6H, PRN as needed for pain, Start date: 05/30/13 15:29:00, Duration: 30 day, Stop date: 06/29/13 15:28:00Do not exceed 4gm/day of acetaminophen. (Same as: Inkom 325/10) normal saline 0.9% 1,000 mL, No Longer [facility] IV 1,000 mL Rate: 150 Active 2012 Medical ml/hr, Infuse Center over: 6.7 hr, Route: IV, Dosing Weight 71 kg, Total Volume: 1,000, Start date: 05/30/13 15:28:00, Duration: 30 day, Stop date: 06/29/13 15:27:00 Saline Flush 0.9% 5 ml, Route: No Longer [facility] IVP, Drug Active 2012 Medical Form: INJ, Center Dosing Weight 71, kg, PRN, PRN Line Flush, Start date: 05/30/13 15:24:00, Duration: 30 day, Stop date: 06/29/13 15:23:00(Same as: BD Posiflush) acetaminophen-hydr 1 tab, Route: Inactive [facility] 12/20[facility] ocodone 325 mg-5 PO, Drug Form: 2012 Medical mg oral tablet TAB, Dosing Center Weight 71, kg, Q4H, PRN Pain Score 1-3, Start date: 05/30/13 15:24:00, Duration: 30 day, Stop date: 06/29/13 15:23:00 ondansetron 4 mg, 2 mL, No Longer [facility] Route: IVP, Active 2012 Medical Drug form: [place] INJ, ONCE, Dosing Weight 71, kg, PRN Nausea & Vomiting, Start date: 05/30/13 15:24:00(Same as: Zofran) acetaminophen 650 mg, 2 tab, No Longer [facility] Route: PO, Active 2012 Medical Drug form: Center TAB, Q4H, Dosing Weight 71, kg, PRN Pain 1-3/Temp > 100.4 F, Start date: 05/30/13 15:24:00, Duration: 30 day, Stop date: 06/29/13 15:23:00Do not exceed 4 gm/day. (Same as: Tylenol) Sodium Chloride IV, 500 ml/hr, Inactive [place] 0.9% IV ONCE, Start 2012 Medical date: 05/30/13 [place] 14:00:00, 1,000 ml sodium bicarbonate 1,000 mL, Inactive [place] 150 mEq + sterile 383.33 ml/hr, 2012 Medical water 1,000 mL Route: IV, [place] Drug Form: INJ, Dosing Weight 71, kg, Start date: 05/30/13 14:00:00, Duration: 1 doses or times, Stop date: 05/30/13 16:59:00 sodium bicarbonate 1,000 mL, 500 Inactive [place] 150 mEq + sterile ml/hr, Route: 2012 Medical water 1,000 mL IV, Drug Form: Center INJ, Dosing Weight 71, kg, Start date: 05/30/13 13:08:00, Duration: 1 doses or times, Stop date: 05/30/13 15:25:00 nystatin 100,000 500,000 unit=5 Active [facility] units/mL oral mL, S&SWALLOW, 2013 Medical suspension QID, place 2 Center mL in each cheek pouch, # 120 mL, 0 Refill(s)place 2 mL in each cheek pouch Bactrim oral 1 tab, PO, Active 05/30[facility] tablet Daily, # 20 2013 Medical tab, 0 Center Refill(s) predniSONE 10 mg 30 mg=3 tab, No Longer [facility] 05/30[facility] oral tablet PO, Daily, # 7 Active 2012 Medical tab, 0 Center Refill(s) mycophenolate 1,000 mg=4 Active 05/30[facility] mofetil 250 mg cap, PO, BID, 2013 Medical oral capsule # 120 cap, 0 Center Refill(s) Inkom 10/325 oral 1 tab, PO, Active [facility] 05/30[facility] tablet Q6H, for pain, 2012 Medical # 24 tab, 0 Center Refill(s) Colace 100 mg oral 100 mg=1 cap, Active [facility] 05/30[facility] capsule PO, Daily, 2013 Medical Constipation, Center # 20 cap, 0 Refill(s) cholecalciferol 2,000 Active 05/30[facility] 2000 intl units IntlUnit=1 2012 Medical oral capsule cap, PO, Center Daily, 0 Refill(s) Lantus Solostar =15 unit, No Longer [facility] 05/29[facility] Pen 100 units/mL SUB-Q, Daily, Active 2012 Medical subcutaneous # 10 ml, 0 Center solution Refill(s) tacrolimus 1 mg 4 mg=4 cap, No Longer [facility] oral capsule PO, Q12H, # Active 2013 Medical 180 cap, 0 Center Refill(s) NovoLog FlexPen 4 unit, No Longer [facility] 05/29[facility] TID-Before Active 2012 Medical Meals, 0 Center Refill(s) Nifediac CC 60 mg 60 mg=1 tab, No Longer [facility] 05/29[facility] oral tablet, PO, Daily, # Active 2013 Medical extended release 30 tab, 0 Center Refill(s) carvedilol 12.5 mg 12.5 mg=1 tab, Active [facility] 05/29[facility] oral tablet PO, Q12H, # 60 2012 Medical tab, 0 Center Refill(s) Valcyte 450 mg 900 mg=2 tab, Active 05/29[facility] oral tablet Daily, 0 2012 Medical Refill(s) Center predniSONE 30 mg, 3 tab, No Longer [facility] 05/28[facility] Route: PO, Active 2012 Medical Drug form: Center TAB, Daily, Dosing Weight 70, kg, Start date: 05/28/13 9:00:00, Duration: 30 day, Stop date: 06/26/13 9:00:00(Same as: PredniSONE) Take with food. tacrolimus 4 mg, 4 cap, Inactive [facility] 05/28[facility] Route: PO, r 2013 Medical Drug form: Center CAP, [id number], Dosing Weight 70, kg, Start date: 05/27/13 20:00:00, Duration: 30 day, Stop date: 06/26/13 8:00:00Avoid grapefruit and grapefruit juice. (Same As: Prograf) CellCept 250 mg 1,000 mg=[address] oral capsule cap, PO, Q12H, r 2013 Medical # 240 cap, 3 Center Refill(s), called to pharmacy senna 8.6 mg oral 8.6 mg=1 tab, Active [address] tablet PO, BID, # 60 r 2013 Medical tab, 0 Center Refill(s), called to pharmacy predniSONE 10 mg 30 mg=3 tab, Active [address] oral tablet PO, Daily, # r 2013 Medical 90 tab, 3 Center Refill(s), called to pharmacy nystatin 100,000 500,000 unit=[address] units/mL oral mL, S&SWALLOW, r 2013 Medical suspension QID, # 300 mL, Center 0 Refill(s), called to pharmacy insulin glargine 20 unit=0.[address] 100 units/mL mL, SUB-Q, r 2013 Medical subcutaneous Daily, # 100 Center solution mL, 3 Refill(s), called to pharmacy Insulin Aspart 100 5 unit=0.[address] unit/ml - (Medium mL, SUB-Q, r 2013 Medical CD) Before Dinner, Center # 100 mL, 3 Refill(s), called to pharmacy Pepcid 20 mg oral 20 mg=1 tab, Active [address] tablet PO, Daily, # r 2013 Medical 30 tab, 3 Center Refill(s), called to pharmacy docusate sodium 100 mg=1 cap, Active [facility] [address] [place] [address] 100 mg oral PO, BID, # 60 r 2013 Medical capsule cap, 0 Center Refill(s), called to pharmacy cholecalciferol 2,[address] 2000 intl units IntlUnit=1 r 2013 Medical oral capsule cap, PO, Center Daily, # 30 cap, 3 Refill(s), called to pharmacy carvedilol 6.25 mg 6.25 mg=1 tab, Active [address] oral tablet PO, Q12H, # 60 r 2013 Medical tab, 3 Center Refill(s), called to pharmacy Inkom 10/325 oral 1 tab, PO, Active [address] tablet Q6H, Pain r 2013 Medical Score 1-5, # Center 50 tab, 0 Refill(s), called to pharmacy valganciclovir 450 450 mg=1 tab, Active [address] mg oral tablet PO, [id number], # r 2013 Medical 30 tab, 3 Center Refill(s), called to pharmacy tacrolimus 1 mg 4 mg=4 cap, Active [address] oral capsule PO, [id number], # r 2013 Medical 240 cap, 3 Center Refill(s), called to pharmacy sulfamethoxazole-t 1 tab, PO, Active [facility] [address] [place] [address] rimethoprim 400 [id number], # 30 r 2013 Medical mg-80 mg oral tab, 3 Center tablet Refill(s), called to pharmacy insulin aspart 5 unit, 0.05 Inactive [facility] 05/27[facility] mL, Route: 2013 Medical SUB-Q, Drug Center form: SOLN, Before Lunch, Dosing Weight 70, kg, Start date: 05/27/13 11:30:00, Stop date: 06/25/13 11:30:00Roll in palms of hands gently; Do not shake vigorously. (Same as: NovoLog) "single patient use only" Stable for 28 days at room temperature. Expires in days from Date bisacodyl 10 mg, 2 tab, Inactive [facility] 05/27[facility] Route: PO, r 2012 Medical Drug form: [place] ECTAB, ONCE, Dosing Weight 70, kg, Priority: NOW, Start date: 05/27/13 9:01:00, Stop date: 05/27/13 9:01:00(Same As: Dulcolax, Correctol) (Do Not Crush) "Do Not Crush" methylPREDNISolone 40 mg, 1 mL, Inactive [facility] SODium SUCCinate Route: IVP, 2012 Medical Drug form: [place] INJ, ONCE, Dosing Weight 70, kg, Start date: 05/27/13 9:00:00, Stop date: 05/27/13 9:00:00(Same as:Solu-Medrol , A-Methapred) cholecalciferol 2,000 Inactive [place] 05/27[facility] IntlUnit, 2 2012 Medical tab, Route: [place] PO, Drug form: TAB, Daily, Dosing Weight 70, kg, Start date: 05/27/13 9:00:00, Duration: 30 day, Stop date: 06/25/13 9:00:00Same as : Vitamin D3 Coreg 6.25 mg, 1 Inactive [facility] 05/27[facility] tab, Route: 2012 Medical PO, Drug form: [place] TAB, Q12H, Dosing Weight 70, kg, Start date: 05/27/13 9:00:00, Duration: 30 day, Stop date: 06/25/13 21:00:00Give with food. (Same As: Coreg) Epogen 10,000 unit, Inactive [facility] 05/27[facility] Route: IV, 2012 Medical Drug form: [place] INJ, ONCE, Dosing Weight 70, kg, For Oncology Patients, Start date: 05/27/13 7:33:00, Stop date: 05/27/13 7:33:00 insulin aspart 5 unit, 0.05 Inactive [facility] 05/27[facility] mL, Route: 2012 Medical SUB-Q, Drug Center form: SOLN, Before Breakfast, Dosing Weight 70, kg, Start date: 05/27/13 7:30:00, Stop date: 06/25/13 7:30:00Roll in palms of hands gently; Do not shake vigorously. (Same as: NovoLog) "single patient use only" Stable for 28 days at room temperature. Expires in days from Date hydrALAZINE 10 mg, 0.5 mL, Inactive [facility] Route: IV, 2012 Medical Drug form: [place] INJ, ONCE, Dosing Weight 70, kg, Priority: NOW, Start date: 05/27/13 0:21:00, Stop date: 05/27/13 0:21:00(Same as: Apresoline) Push over 5 minutes basiliximab + 20 mg, 5 mL, Inactive [facility] Sodium Chloride Route: IVPB, r 2012 Medical 0.9% IV 50 mL Drug form: [place] INJ, ONCE, Dosing Weight 70, kg, Start date: 05/26/13 22:53:00, Stop date: 05/26/13 22:53:00Simule ct. Do not send via pneumatic tube system. (Same As: Simulect) Dextrose 50% 12.5 gm, 25 No Longer [facility] [place] Syringe mL, Route: Active 2012 Medical IVP, Drug Center Form: INJ, Dosing Weight 70, kg, PRN, PRN Blood Glucose Results, Start date: 05/26/13 22:41:00, Duration: 30 day, Stop date: 06/25/13 22:40:00 glucagon 1 mg, Route: No Longer [facility] IM, Drug form: Active 2012 Medical PDR/INJ, PRN, Center Dosing Weight 70, kg, PRN Blood Glucose Results, Start date: 05/26/13 22:41:00, Duration: 30 day, Stop date: 06/25/13 22:40:00 insulin aspart 2 unit, 0.02 No Longer [facility] mL, Route: Active 2012 Medical SUB-Q, Drug Center form: SOLN, Bedtime, Dosing Weight 70, kg, PRN Blood Glucose Results, Start date: 05/26/13 22:41:00, Duration: 30 day, Stop date: 06/25/13 22:40:00Roll in palms of hands gently; Do not shake vigorously. (Same as: NovoLog) "single patient use only" Stable for 28 days at room temperature. Expires in days from Date Zocor 20 mg, 1 tab, No Longer [place] [facility] Route: PO, Active 2012 Medical Drug form: Center TAB, Bedtime, Dosing Weight 70, kg, Start date: 05/26/13 21:00:00, Duration: 30 day, Stop date: 06/24/13 21:00:00(Same as: Zocor) pravastatin 40 mg, 2 tab, No Longer [facility] Route: PO, Active 2012 Medical Drug form: Center TAB, Bedtime, Dosing Weight 70, kg, Start date: 05/26/13 21:00:00, Duration: 30 day, Stop date: 06/24/13 21:00:00(Same as: Pravachol) mycophenolate 1,000 mg, 2 No Longer [facility] mofetil tab, Route: Active r 2012 Medical PO, Drug form: Center TAB, [id number], Dosing Weight 70, kg, Start date: 05/26/13 20:00:00, Duration: 30 day, Stop date: 06/25/13 8:00:00SEPARAT E ANTACIDS from Cellcept by 2 hrs. (Same As: CellCept) Procrit 10,000 unit, 1 Inactive [place] [facility] mL, Route: 2012 Medical SUB-Q, Drug Center form: INJ, ONCE, Start date: 05/26/13 19:00:00, Stop date: 05/26/13 19:00:00(Same as: Procrit) epoetin jyotsna 10,000 unit/1 ml VL insulin aspart 5 unit, 0.05 No Longer [facility] mL, Route: Active 2012 Medical SUB-Q, Drug Center form: SOLN, Before Dinner, Dosing Weight 70, kg, Start date: 05/26/13 16:30:00, Stop date: 06/24/13 16:30:00Roll in palms of hands gently; Do not shake vigorously. (Same as: NovoLog) "single patient use only" Stable for 28 days at room temperature. Expires in days from Date Pepcid 20 mg oral 20 mg, 1 tab, No Longer [facility] 05/26[facility] tablet Route: PO, Active r 2012 Medical Drug form: Center TAB, Daily, Dosing Weight 70, kg, Priority: NOW, Start date: 05/26/13 14:58:00, Duration: 30 day, Stop date: 06/25/13 9:00:00(Same as: Pepcid) insulin glargine 20 unit, 0.2 No Longer [facility] 05/26[facility] mL, Route: Active 2012 Medical SUB-Q, Drug Center form: INJ, Daily, Dosing Weight 70, kg, Priority: NOW, Start date: 05/26/13 14:16:00, Stop date: 06/25/13 9:00:00Same as Lantus Solostar PEN "single patient use only" Stable for 28 days at room temperature. Expires in days from Date CellCept + 1,000 mg, 40 Inactive [facility] 05/26[facility] Dextrose 5% in mL, Route: r 2012 Medical Water IV 250 mL IVPB, ONCE, Center Dosing Weight 70, kg, Start date: 05/26/13 10:00:00, Stop date: 05/26/13 10:00:00Compat ible with D5W only. basiliximab + 20 mg, 5 mL, Inactive [facility] Sodium Chloride Route: IVPB, 2012 Medical 0.9% IV 50 mL ONCALL, Dosing Center Weight 74.318, kg, to OR, Start date: 05/26/13 10:00:00, Duration: 30 day, Stop date: 06/25/13 9:59:00Simulec t. Do not send via pneumatic tube system. (Same As: Simulect) Simulect + Sodium 20 mg, 5 mL, Inactive [facility] 05/26[facility] Chloride 0.9% IV Route: IVPB, r 2012 Medical 50 mL ONCE, Dosing Center Weight 70, kg, Start date: 05/26/13 10:00:00, Stop date: 05/26/13 10:00:00Simule ct. Do not send via pneumatic tube system. (Same As: Simulect) Dulcolax Laxative 10 mg, 1 supp, Inactive [facility] Route: HI, r 2012 Medical Drug form: [place] SUPP, ONCE, Dosing Weight 70, kg, Priority: NOW, Start date: 05/26/13 9:44:00, Stop date: 05/26/13 9:44:00(Same As: Dulcolax, Bisco-Lax) senna 8.6 mg oral 8.6 mg, 1 tab, No Longer [facility] [address] [place] [address] tablet Route: PO, Active r 2012 Medical Drug Form: [place] TAB, Dosing Weight 70, kg, BID, NOW, Start date: 05/26/13 9:44:00, Duration: 30 day, Stop date: 06/25/13 9:00:00(Same as: Senokot) methylPREDNISolone 80 mg, 2 mL, Inactive [facility] 05/26[facility] SODium SUCCinate Route: IVP, r 2012 Medical Drug form: [place] INJ, ONCE, Dosing Weight 70, kg, Start date: 05/26/13 9:00:00, Stop date: 05/26/13 9:00:00(Same as:Solu-Medrol , A-Methapred) Zemplar 4 mcg oral 4 microgram, 4 Inactive [facility] 05/26[facility] capsule cap, Route: 2012 Medical PO, Drug form: [place] CAP, Q-M-W-F, Dosing Weight 70, kg, Start date: 05/26/13 9:00:00, Duration: 30 day, Stop date: 06/23/13 9:00:00(Same as: Zemplar) amLODipine 10 mg, 1 tab, No Longer [facility] 05/26[facility] Route: PO, Active 2012 Medical Drug form: [place] TAB, Daily, Dosing Weight 70, kg, Start date: 05/26/13 9:00:00, Duration: 30 day, Stop date: 06/24/13 9:00:00(Same as: Norvasc) insulin 20 unit, 0.2 Inactive [facility] 05/26[facility] isophane-NPH mL, Route: r 2012 Medical SUB-Q, Drug Center form: INJ, Before Breakfast, Dosing Weight 70, kg, Start date: 05/26/13 7:30:00, Duration: 30 day, Stop date: 06/24/13 7:30:00Roll in palms of hands gently; Do not shake vigorously. (Same as: Humulin N) (Restricted to patients requiring a dose > 60 units) Stable for 28 days at room temperature Expires in days from Date insulin 10 unit, 0.1 Inactive [facility] isophane-NPH mL, Route: 2012 Medical SUB-Q, Drug Center form: INJ, ONCE, Dosing Weight 70, kg, Start date: 05/25/13 18:00:00, Stop date: 05/25/13 18:00:00Roll in palms of hands gently; Do not shake vigorously. (Same as: Humulin N) (Restricted to patients requiring a dose > 60 units) Stable for 28 days at room temperature Expires in days from Date nystatin 100,000 500,000 unit, No Longer [facility] 05/25[facility] units/mL oral 5 mL, Route: Active 2012 Medical suspension S&SWALLOW, [place] Drug form: SUSP, QID, Dosing Weight 70, kg, Start date: 05/25/13 17:00:00, Duration: 30 day, Stop date: 06/24/13 13:00:00(Same as:Mycostatin) Shake well. labetalol 10 mg, 2 mL, No Longer [facility] 05/25[facility] Route: IVP, Active r 2012 Medical Drug form: Center INJ, Q4H, Dosing Weight 70, kg, PRN Hypertension, Start date: 05/25/13 16:44:00, Duration: 3 doses or times, Stop date: Limited # of times bisacodyl 10 mg, 1 supp, Inactive [facility] 05/25[facility] Route: HI, 2012 Medical Drug form: Center SUPP, ONCE, Dosing Weight 70, kg, Start date: 05/25/13 16:44:00, Stop date: 05/25/13 16:44:00(Same As: Dulcolax, Bisco-Lax) valganciclovir 450 mg, 1 tab, No Longer H[facility]ika [facility] Route: PO, Active 2012 Medical Drug form: [place] TAB, [id number], Dosing Weight 70, kg, Start date: 05/25/13 16:00:00, Duration: 30 day, Stop date: 06/23/13 8:00:00(Same as: Valcyte) "Do Not Crush" sulfamethoxazole-t 1 tab, Route: No Longer [place] [facility] rimethoprim 400 PO, Drug Form: Active 2012 Medical mg-80 mg oral TAB, Dosing Center tablet Weight 70, kg, [id number], Start date: 05/25/13 16:00:00, Duration: 30 day, Stop date: 06/23/13 8:00:00On empty stomach with a glass of water. 1 hr before meals (Same As: Bactrim, Septra) insulin 10 unit, No Longer Heidi [facility] isophane-NPH Route: SUB-Q, Active 2012 Medical Before [place] Breakfast, Dosing Weight 70, kg, Start date: 05/25/13 10:00:00, Duration: 30 day, Stop date: 06/24/13 7:30:00 methylPREDNISolone 125 mg, 2 mL, Inactive Mike [facility] SODium SUCCinate Route: IVPB, 2012 Medical Drug form: [place] INJ, ONCE, Dosing Weight 70, kg, Start date: 05/25/13 9:00:00, Stop date: 05/25/13 9:00:00(Same as:Solu-Medrol , A-Methapred) MiraLax 17 gm, 1 pkt, No Longer [facility] Route: PO, Active r 2012 Medical Drug form: [place] PWDR, Daily, Dosing Weight 70, kg, Start date: 05/25/13 9:00:00, Duration: 30 day, Stop date: 06/23/13 9:00:00Dissolv e in 8 oz of water or juice. (Same as: Miralax) insulin aspart 20 unit, 0.2 Inactive [facility] mL, Route: 2012 Medical SUB-Q, Drug Center form: SOLN, ONCE, Dosing Weight 70, kg, Start date: 05/25/13 0:12:00, Stop date: 05/25/13 0:12:00Roll in palms of hands gently; Do not shake vigorously. (Same as: NovoLog) "single patient use only" Stable for 28 days at room temperature. Expires in days from Date docusate sodium 100 mg, 1 cap, No Longer [facility] [place] 100 mg oral Route: PO, Active 2012 Medical capsule Drug form: [place] CAP, BID, Dosing Weight 70, kg, Start date: 05/24/13 17:00:00, Duration: 30 day, Stop date: 06/23/13 9:00:00(Same as: Colace) (Do Not Crush) pantoprazole 40 mg, 1 tab, No Longer [facility] 05/24[facility] Route: PO, Active r 2012 Medical Drug form: [place] ECTAB, Before Dinner, Dosing Weight 70, kg, Start date: 05/24/13 16:30:00, Duration: 30 day, Stop date: 06/22/13 16:30:00Tablet should not be chewed or crushed. (Same as: Protonix) heparin 5,000 unit, 1 No Longer [facility] 05/24[facility] Mis mL, Route: Active 2012 Medical SUB-Q, Drug Center form: INJ, Q8H-05, Dosing Weight 70, kg, Priority: NOW, Start date: 05/24/13 12:07:00, Duration: 30 day, Stop date: 06/23/13 5:00:00porcine heparin morphine Sulfate 2 mg, 1 mL, No Longer [facility] 05/24[facility] Route: IVP, Active r 2012 Medical Drug form: Center INJ, Q2H, Dosing Weight 70, kg, PRN Breakthrough Pain, Start date: 05/24/13 12:07:00, Duration: 30 day, Stop date: 06/23/13 12:06:00(Same as:MORPhine Sulfate) Inkom 10/325 oral 1 tab, Route: No Longer [facility] Mis tablet PO, Drug Form: Active 2012 Medical TAB, Dosing Center Weight 70, kg, Q4H, PRN Pain Score 1-5, Start date: 05/24/13 12:07:00, Duration: 30 day, Stop date: 06/23/13 12:06:00Do not exceed 4gm/day of acetaminophen. (Same as: Inkom 325/10) bisacodyl 10 mg, 1 supp, No Longer [facility] 05/24[facility] Route: HI, Active 2012 Medical Drug form: Center SUPP, Daily, Dosing Weight 70, kg, PRN as needed for constipation, Start date: 05/24/13 12:05:00, Duration: 30 day, Stop date: 06/23/13 12:04:00(Same As: Dulcolax, Bisco-Lax) NS 1,000 mL 1,000 mL, No Longer [facility] 05/24[facility] Rate: 75 Active 2012 [facility] ml/hr, Infuse Center over: 13.3 hr, Route: IV, Dosing Weight 70 kg, Total Volume: 1,000, Start date: 05/24/13 12:03:00, Duration: 30 day, Stop date: 06/23/13 12:02:00 Phenergan 12.5 mg, 0.5 No Longer [facility] 05/24[facility] mL, Route: Active 2012 [facility] IVPB, Drug Center form: INJ, Q4H, Dosing Weight 70, kg, PRN Nausea & Vomiting, Start date: 05/24/13 9:48:00, Duration: 30 day, Stop date: 06/23/13 9:47:00Do not give IV push. (Same as: Phenergan) insulin 10 unit, 0.1 No Longer [facility] 05/24[facility] isophane-NPH mL, Route: [facility] 2012 [facility] SUB-Q, Drug Center form: INJ, Before Breakfast, Dosing Weight 70, kg, Priority: STAT, Start date: 05/24/13 9:45:00, Duration: 30 day, Stop date: 06/23/13 7:30:00Roll in palms of hands gently; Do not shake vigorously. (Same as: Humulin N) (Restricted to patients requiring a dose > 60 units) Stable for 28 days at room temperature Expires in days from Date methylPREDNISolone 250 mg, 4 mL, Inactive [facility] SODium SUCCinate + Route: IVPB, 2012 Medical Sodium Chloride Drug form: [place] 0.9% IV 100 mL INJ, ONCE, Dosing Weight 70, kg, Start date: 05/24/13 9:00:00, Stop date: 05/24/13 9:00:00(Same as:Solu-Medrol , A-Methapred) Saline Flush 0.9% 5 ml, Route: No Longer [place] 05/24[facility] IVP, Drug Active 2012 Medical Form: INJ, Center Dosing Weight 70, kg, Q12H, Start date: 05/24/13 9:00:00, Duration: 30 day, Stop date: 06/22/13 21:00:00(Same as: BD Posiflush) HYDROmorphone 15 mg, 30 mL, No Longer [facility] 05/24[facility] 0.5mg/mL RN ORTHOPAEDIC Route: IV, RN ORTHOPAEDIC Active 2012 Medical (15mg/30 mL) 15 mg Dose: 0.1mg, [place] RN ORTHOPAEDIC Lockout: 12 minutes, 4 Hour Limit (In MG): 2, Drug Form: INJ, Continuous, Start date: 05/23/13 23:30:00, Duration: 30 day, Stop date: 06/22/13 23:29:00(Same as: Dilaudid) conc=0.5 mg/ml Hydromorphone RN ORTHOPAEDIC Dilaudid 0.5 mg, 0.25 Inactive [place] 05/24[facility] mL, Route: IV, 2012 Medical Drug form: [place] SOLN, ONCE, Dosing Weight 70, kg, Start date: 05/23/13 23:28:00, Stop date: 05/23/13 23:28:00Same as: Dilaudid Saline Flush 0.9% 5 ml, Route: No Longer [place] 05/24[facility] IVP, Drug Active 2012 Medical Form: INJ, Center Dosing Weight 70, kg, PRN, PRN Line Flush, Start date: 05/23/13 23:22:00, Duration: 30 day, Stop date: 06/22/13 23:21:00(Same as: BD Posiflush) ondansetron 4 mg, 2 mL, No Longer [place] 05/24[facility] Route: IVP, Active 2012 Medical Drug form: [place] INJ, Q8H, Dosing Weight 70, kg, PRN Nausea & Vomiting, Start date: 05/23/13 23:22:00, Duration: 30 day, Stop date: 06/22/13 23:21:00(Same as: Zofran) mycophenolate 1,000 mg, 40 No Longer [facility] 05/24[facility] mofetil + Dextrose mL, Route: Active r 2012 Medical 5% in Water IV 250 IVPB, Drug Center mL form: INJ, [id number], Dosing Weight 70, kg, Start date: 05/23/13 22:56:00, Stop date: 06/22/13 20:00:00Compat ible with D5W only. insulin aspart 3 unit, 0.03 No Longer [facility] 05/24[facility] mL, Route: Active 2012 Medical SUB-Q, Drug Center form: SOLN, TID-Before Meals, Dosing Weight 70, kg, PRN Blood Glucose Results, Start date: 05/23/13 22:53:00, Duration: 30 day, Stop date: 06/22/13 22:52:00Roll in palms of hands gently; Do not shake vigorously. (Same as: NovoLog) "single patient use only" Stable for 28 days at room temperature. Expires in days from Date Sodium Chloride 1,000 mL, No Longer [facility] 05/24[facility] 0.45% IV 1,000 mL Rate: 100 2012 Medical ml/hr, Infuse Center over: 10 hr, Route: IV, Dosing Weight 70 kg, Total Volume: 1,000, Start date: 05/23/13 22:53:00, Duration: 30 day, Stop date: 06/22/13 22:52:00 1/2 NS 1,000 mL 1,000 mL, No Longer [facility] 05/24[facility] Rate: 125 2012 Medical ml/hr, Infuse Center over: 8 hr, Route: IV, Dosing Weight 70 kg, Total Volume: 1,000, Start date: 05/23/13 22:52:00, Duration: 30 day, Stop date: 06/22/13 22:51:00 tacrolimus 3 mg, 3 cap, No Longer [facility] 05/24[facility] Route: PO, Active r 2012 Medical Drug form: Center CAP, [id number], Dosing Weight 70, kg, Start date: 05/23/13 22:50:00, Duration: 30 day, Stop date: 06/22/13 20:00:00Avoid grapefruit and grapefruit juice. (Same As: Prograf) CellCept 250 mg, 1 cap, [facility] Route: PO2012 Medical Drug form: [place] CAP, ONCE, Start date: 05/23/13 21:00:00, Stop date: 05/23/13 21:00:00SEPARA TE ANTACIDS from Cellcept by 2 hrs. (Same As: CellCept) bupivacaine 20 mL, Route: No Longer [facility] liposome InFILtration(l Active r 2012 Medical ocal), Drug Center Form: INJ, ONCALL, Start date: 05/23/13 20:00:00, Duration: 1 doses or times, Stop date: 05/24/13 0:00:00(Same as: Exparel) NOT FOR IV use Postoperative analgesia: Infiltration (local): Dose is based on surgical site and volume required to cover the area (in general, the maximum total dose is 266 mg). Bunionectomy: 7 mL into the tissues surrounding the osteotomy and 1 mL into the subcutaneous tissue of the surgical site (total dose=8 mL [106 mg]) Hemorrhoidecto my: 30 mL (20 mL vial diluted with 10 mL NS) divided and administered as 6 injections of 5 mL each (total dose=30 mL [266 mg]) predniSONE 10 mg, 1 tab, Inactive [facility] 05/[facility] Route: PO2012 Medical Drug form: [place] TAB, ONCE, Start date: 05/23/13 20:00:00, Stop date: 05/23/13 20:00:00(Same as: PredniSONE) Take with food. Valcyte 450 mg, 1 tab, Inactive [facility] [address] [place] [address] Route: PO2012 Medical Drug form: [place] TAB, ONCE, Start date: 05/23/13 20:00:00, Stop date: 05/23/13 20:00:00(Same as: Valcyte) "Do Not Crush" Pepcid 20 mg, 1 tab, Inactive [facility] /[address] [place] [address] Route: PO, 2012 Medical Drug form: [place] TAB, ONCE, Start date: 05/23/13 20:00:00, Stop date: 05/23/13 20:00:00(Same as: Pepcid) nystatin 1 MilUnit, 10 Inactive [place] [address] mL, Route: PO, 2012 Medical Drug form: [place] SUSP, ONCE, Start date: 05/23/13 20:00:00, Stop date: 05/23/13 20:00:00(Same as:Mycostatin) Shake well before use. sulfamethoxazole-t 1 tab, Route: [facility] rimethoprim 400 PO, Drug Form: 2012 Medical mg-80 mg oral TAB, ONCE, [place] tablet Start date: 05/23/13 20:00:00, Stop date: 05/23/13 20:00:00On empty stomach with a glass of water. 1 hr before meals (Same As: Bactrim, Septra) Prograf 1 mg, 1 cap, [facility] Route: PO, 2012 Medical Drug form: [place] CAP, ONCE, Start date: 05/23/13 20:00:00, Stop date: 05/23/13 20:00:00Avoid grapefruit and grapefruit juice. (Same As: Prograf) Ancef 2 gm, Route: Inactive [facility] 05/24[facility] IVPB, ONCE, 2012 Medical Dosing Weight [place] 70, kg, Start date: 05/23/13 19:01:00, Duration: 1 doses or times, Stop date: 05/23/13 19:01:00 CellCept 1,000 mg, 2 Inactive [place] 05/23[facility] tab, Route: 2012 Medical PO, Drug form: [place] TAB, ONCE, Dosing Weight 70, kg, Start date: 05/23/13 16:08:00, Stop date: 05/23/13 16:08:00, 1 hour before or 2 hours after meals1 hour before or 2 hours after mealsSEPARATE ANTACIDS from Cellcept by 2 hrs. (Same As: CellCept) magnesium sulfate 2 gm, Route: Inactive [place] 05/23[facility] IVPB, Drug 2012 Medical form: INJ, Center ONCE, Dosing Weight 70, kg, Total dose=2 gm, Start date: 05/23/13 11:25:00, Duration: 1 doses or times, Stop date: 05/23/13 11:25:00 NS 1,000 mL 1,000 mL, Inactive [facility] Rate: 50 2013 Medical ml/hr, Infuse Center over: 20 hr, Route: IV, Dosing Weight 70 kg, Total Volume: 1,000, Start date: 05/23/13 9:16:00, Duration: 30 day, Stop date: 06/22/13 9:15:00 amLODipine 10 mg, 1 tab, Inactive [facility] Route: PO, 2012 Medical Drug form: [place] TAB, Daily, Dosing Weight 70, kg, Start date: 05/23/13 9:00:00, Duration: 30 day, Stop date: 06/21/13 9:00:00(Same as: Norvasc) Prograf 3 mg, 3 cap, Inactive [facility] Route: PO, 2012 Medical Drug form: [place] CAP, ONCE, Dosing Weight 70, kg, Start date: 05/23/13 8:38:00, Stop date: 05/23/13 8:38:00Avoid grapefruit and grapefruit juice. (Same As: Prograf) Saline Flush 0.9% 5 ml, Route: No Longer [facility] IVP, Drug Active 2012 Medical Form: INJ, [place] Dosing Weight 74.318, kg, Q12H, Start date: 05/22/13 21:00:00, Duration: 30 day, Stop date: 06/21/13 9:00:00(Same as: BD Posiflush) Lyrica 50 mg, 1 cap, No Longer [facility] Route: PO, Active 2012 Medical Drug form: [place] CAP, Bedtime, Dosing Weight 70, kg, Start date: 05/22/13 21:00:00, Duration: 30 day, Stop date: 06/20/13 21:00:00Same as Lyrica methylPREDNISolone 500 mg, Route: No Longer [facility] SODium SUCCinate + IVPB, ONCALL, Active 2012 Medical Sodium Chloride Dosing Weight Center 0.9% IV 100 mL 74.318, kg, to OR, Start date: 05/22/13 10:00:00, Duration: 30 day, Stop date: 06/21/13 9:59:00(Same as:Solu-Medrol , A-Methapred) Sodium Chloride 250 mL, Rate: No Longer [facility] 0.9% (titrate) 250 call center 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 for Active r 2012 Medical mL use with blood Center product administration , Dosing Weight 74.318, kg, Route: IV, Total Volume: 250, Start Date: 05/22/13 9:13:00, Duration: 30 day, Stop date: 06/21/13 9:12:00, Replace Every: 24 hr Saline Flush 0.9% 5 ml, Route: No Longer [facility] Mis IVP, Drug Active 2012 Medical Form: INJ, [place] Dosing Weight 74.318, kg, PRN, PRN Line Flush, Start date: 05/22/13 9:13:00, Duration: 30 day, Stop date: 06/21/13 9:12:00(Same as: BD Posiflush) mycophenolate 1,000 mg, 2 No Longer Mike [facility] mofetil tab, Route: Active 2012 Medical PO, Drug form: [place] TAB, ONCE, Dosing Weight 74.318, kg, Start date: 05/22/13 9:13:00, Stop date: 05/22/13 9:13:00SEPARAT E ANTACIDS from Cellcept by 2 hrs. (Same As: CellCept) amLODipine 10 mg 10 mg, 1 tab, PO Active Mis oral tablet PO, Daily, 2012 Medical tab, Center Substitution Allowed, TAB ferrous sulfate Substitution Active [place] 325 mg oral Allowed 2012 Medical enteric coated Center tablet Lyrica 50 mg oral 50 mg, 1 cap, PO Active Mis capsule PO, TID, 2012 Medical Substitution Center Allowed, CAP Renvela 800 mg Substitution Active Mis oral tablet Allowed 2012 Medical Center Allergies, Adverse Reactions, Alerts Substance Category Reaction Severity Reaction Status Date Comments Source type Reported Immunizations Immunization Date Site Status Last Updated Comments Source Given pneumococcal Right completed [facility] 23-valent 8 [facility] Medical vaccine [place] influenza virus Right completed [facility] vaccine, 8 [facility] Medical inactivated Center pneumococcal Right completed [facility] [place] 13-valent 7 deltoid Medical vaccine Center pneumococcal Right completed [facility] 13-valent 7 deltoid Medical vaccine Center influenza virus Right completed [facility] vaccine, 7 deltoid Medical inactivated Center influenza virus Right completed [facility] vaccine, 7 deltoid Medical inactivated Center pneumococcal Not Given [place] 23-valent 6 Medical vaccine Center influenza virus Not Given [facility] vaccine, 6 Medical inactivated Center pneumococcal Not Given [place] 23-valent 6 [facility] vaccine Center Results Order Name Results Value Reference Date Interpretation Comments Source Range SPECIAL Hgb A1C 6.2 % <=5.6 % 07/12 [place] [facility]MISTRY /2017 [facility] REFERENCE Test Name C1Q 07/02 [place] LAB RESULTS RESULTS Medical Center REFERENCE Test Name DSA 07/02 [place] [facility] RESULTS RESULTS Medical Center REFERENCE HLA Misc Test See Report 1 04/24 Result [place] [facility] RESULTS Comment: Medical (04/23/17 6:28 PM) Reference lab Center results scanned in Care4. Results displayed in Rtwhzvv-[id number]-W EFEREBluepayE LAB-Outside Lab Documents (Imaged) under date/time results were scanned. Report sent for scanning on 05/01/2017. REFERENCE Test Name DSA 04/24 [place] LAB RESULTS RESULTS Medical Center REFERENCE Test Name C1Q 04/23 [place] [facility] RESULTS RESULTS Medical Center REFERENCE HLA Misc Test See Report 2 04/23 Result [place] [facility] RESULTS Comment: Medical (04/23/17 5:09 PM) Reference lab Center results scanned in Care4. Results displayed in Itmavup-Nci-L EFERENCE LAB-Outside Lab Documents (Imaged) under date/time results were scanned. Report sent for scanning on 05/10/2017. SPECIAL Hgb A1C 6.5 % <=5.6 % 01/25 [place] CHEMISTRY /2016 Medical Center SPECIAL Hgb A1C 6.3 % <=5.6 % 07/27 [place] CHEMISTRY /2017 Medical Center REFERENCE Test Name C1Q 06/26 [place] LAB RESULTS RESULTS Medical Center REFERENCE HLA Misc Test See Report 1 06/26 Result [place] [facility] RESULTS Comment: Medical (06/26/16 2:01 PM) Reference lab Center results scanned in Care4. Results displayed in [id number]-[id number] EFERENCE LAB-Outside Lab Documents (Imaged) under date/time results were scanned. Report sent for scanning on 06/29/2016 . REFERENCE Test Name DSA 06/26 [facility] LAB RESULTS RESULTS /2016 Medical [place] REFERENCE HLA Misc Test See Report 2 06/26 Result [facility] LAB RESULTS /2016 Comment: Medical (06/26/16 2:01 PM) Reference lab Center results scanned in Care4. Results displayed in [id number]-Leu-K EFERENCE LAB-Outside Lab Documents (Imaged) under date/time results were scanned. Report sent for scanning on 06/29/2016 . ELECTROLYTE AGAP 14.4 meq/L 10.0 - 06/10 [facility] [place] [facility] 20.0 [facility] ELECTROLYTE CO2 20 meq/L 24 - 32 06/10 [facility] [place] [facility] /2015 [facility] ELECTROLYTE Calcium Lvl 9.1 mg/dL 8.5 - 10.5 06/10 [facility] [place] [facility] /2015 [facility] ELECTROLYTE eGFR 44 06/10 Result Comment: The eGFR is calculated using the CKD-EPI formula. In most young, healthy individuals the eGFR will be >90 mL/ min/1.73m2. The eGFR declines with age. An eGFR of 60-89 may be normal in [facility] [place] [facility] mL/min/1.7 /2015 some populations, particularly the elderly, for whom the CKD-EPI formula has not been extensively validated. Use of the eGFR is not recommended in the following populations: [address] Individuals with unstable creatinine concentrations, including patients and those with serious co-morbid conditions. Patients with extremes in muscle mass or diet. The data above are obtained from the National Kidney Disease Education Program (NKDEP) which additionally recommends that when the eGFR is used in patients with extremes of body mass index for purposes of drug dosing, the eGFR should be multiplied by the estimated BMI. ELECTROLYTE Glucose Lvl 96 mg/dL 70 - 99 06/10 [facility] S /2015 [facility] ELECTROLYTE Chloride Lvl 114 meq/L 95 - 109 06/10 [facility] [place] [facility] /2015 [facility] ELECTROLYTE BUN 17 mg/dL 7 - 22 06/10 [facility] [place] [facility] /2015 [facility] ELECTROLYTE Potassium Lvl 3.4 meq/L 3.5 - 5.1 06/10 [facility] [place] [facility] /2015 [facility] ELECTROLYTE Creatinine 1.39 mg/dL 0.50 - 06/10 [facility] [place] [facility] Lvl 1.40 [facility] ELECTROLYTE Sodium Lvl 145 meq/L 135 - 145 06/10 [facility] S [facility] HEMATOLOGY Eosinophils # 0.1 K/CMM 0.0 - 0.5 06/10 [facility] HEMATOLOGY Monocytes # 0.7 K/CMM 0.0 - 0.8 06/10 [facility] HEMATOLOGY Lymphocytes # 1.2 K/CMM 1.0 - 5.5 06/10 [facility] HEMATOLOGY Segs-Bands # 3.6 K/CMM 1.5 - 8.1 06/10 [facility] HEMATOLOGY Basophils 0.3 % 0.0 - 1.0 06/10 [facility] HEMATOLOGY Monocytes 12.0 % 2.0 - 12.0 06/10 [facility] HEMATOLOGY Eosinophils 2.3 % 0.0 - 4.0 06/10 [facility] HEMATOLOGY Segs 64.2 % 45.0 - 06/10 [facility] 75.0 [facility] HEMATOLOGY Lymphocytes 21.2 % 20.0 - 06/10 [facility] 40.0 [facility] HEMATOLOGY MCH 27.6 pg 27.0 - 06/10 [place] 31.0 [facility] HEMATOLOGY MCHC 33.5 g/dL 32.0 - 06/10 [place] 36.0 [facility] HEMATOLOGY RDW 13.8 % 11.5 - 06/10 [facility] 14.5 [facility] HEMATOLOGY Platelet 114 K/CMM 133 - 450 06/10 [facility] HEMATOLOGY MPV 10.6 fL 7.4 - 10.4 06/10 [facility] HEMATOLOGY RBC 4.23 M/CMM 4.20 - 06/10 [place] 5.40 [facility] HEMATOLOGY Hgb 11.7 g/dL 12.0 - 06/10 [place] 16.0 [facility] HEMATOLOGY Hct 35.0 % 36.0 - 06/10 [place] 48.0 [facility] HEMATOLOGY MCV 82.6 fL 80.0 - 06/10 [facility] 98.0 [facility] HEMATOLOGY WBC 5.5 K/CMM 3.7 - 10.4 06/[address] [place] [address] TOXICOLOGY Tacrolimus 5.5 ng/mL 5.0 - 15.0 06/10 [facility] Lvl [facility] Abdomen/Pel Abdomen/Pelvi EXAM: CT ABDOMEN AND PELVIS WITHOUT CONTRAST - [facility] wo IV s wo IV /2015 - Medical contrast CT contrast CT Center DATE: 06/09/2016 11:25 AM [employer] SAL[employer] REP Read by: Dave Edwards MD Dictated Date/time: 06/09/16 16:39 Electronically Signed by: Dave Edwards MD 06/09/16 16:59 FINAL REPORT INDICATION: Abdominal pain, acute ADDITIONAL INFORMATION: ESRD. RLQ transplant kidney. Ultrasound with fluid collection superior to transplant kidney. COMPARISON: Transplant renal ultrasound 06/08/2016 TECHNIQUE: Volumetric CT acquisition of the abdomen and pelvis without intravenous administration contrast. Axial, coronal and sagittal reconstructions. IV CONTRAST: None ORAL CONTRAST: None RADIATION DOSE: Total DLP: 1191mGy*cm Estimated effective dose: DLP x 0.015 mSv COMPLICATIONS: None FINDINGS: Lines and tubes: None. Lower thorax: Bibasilar atelectasis. No large pleural effusions. Trace pericardial effusions. Liver: Normal. Biliary tree: No intra- or extrahepatic biliary ductal dilation. Gallbladder: No radiopaque gallstones. No wall thickening or pericholecystic fluid. Pancreas: Atrophic pancreas with fatty infiltration. No ductal dilatation. Spleen: No splenomegaly. Adrenals: No nodules. Kidneys and ureters: Atrophic [place] kidneys with perinephric stranding and trace fluid secondary to end-stage renal disease. No stones or hydronephrosis. A 1.1 x 1.3 cm left inferior pole cyst. No hydroureter. The right lower quadrant transplant kidney measures 11.3 cm without perinephric fluid collections. No fluid collections superior to the kidney. There is minimal perinephric stranding. Mild fullness of t he transplant kidney collecting system secondary to ectopic implantation of the ureter into the bladder. No ureteral stones. Bladder: Distended without radiopaque stones. Reproductive organs: Anteflexed uterus. No large adnexal lesions. Small amount of pelvic fluid. No organized collections. Gastrointestinal tract: The stomach is partially distended gastric contents. No small or large bowel obstruction. The visualized appendix is within normal limits in caliber. Right lower quadrant fluid collections or stranding. Peritoneum and retroperitoneum: Trace pelvic fluid. No organized fluid collections. No free intraperitoneal air. Lymph nodes: Lack of IV contrast limit optimal evaluation for lymphadenopathy. Given this limitation, no abdominal or pelvic lymphadenopathy. Vasculature: Visualized abdominal aorta and IVC within normal limits in caliber. Moderate atherosclerotic calcifications of the abdominal aorta and branches. Bones: No acute osseous lesions. Soft tissues: A 8.2 x 5.3 x 7 cm (largest dimensions, series 5A image 36 and series 3 image 63) fluid collection within the right lower quadrant subcutaneous tissue just anterior to the abdominal wall w ith a focus of air and associated stranding (series 3 image 63) with thickened rim is visualized and most likely correlates to the complex fluid collection with internal septations and debris visualized in the prior ultrasound. IMPRESSION: 1. Right lower quadrant renal transplant without peritransplant or peritoneal fluid collections. Mild fullness of the transplant collecting system related to ectopic implantation of the ureter into the bladder. 2. Previously described complex fluid collection seen in the prior ultrasound, most likely related to the right lower quadrant abdominal wall fluid collection with thickened rim and a focus of air, whi ch may represent an abscess or possible evolving hematoma, which could be infected. Recommend direct physical examination of the right lower quadrant abdominal wall and/or aspiration for better characterization. 3. Atropic [place] kidneys without renal stones or hydronephrosis. 4. Left [place] inferior pole renal cyst. CHEM PANEL Glucose Lvl 132 mg/dL 70 - 99 06/[address] CHEM PANEL BUN 20 mg/dL 7 - 22 06/[address] CHEM PANEL Creatinine 1.84 mg/dL 0.50 - 06/09 [facility] Lvl 1.40 [facility] CHEM PANEL Sodium Lvl 142 meq/L 135 - 145 06/[address] CHEM PANEL Potassium Lvl 3.3 meq/L 3.5 - 5.1 06/[address] CHEM PANEL CO2 19 meq/L 24 - 32 06/[address] CHEM PANEL AGAP 13.3 meq/L 10.0 - 06/09 [facility] 20.0 [facility] CHEM PANEL Calcium Lvl 9.2 mg/dL 8.5 - 10.5 06/[address] CHEM PANEL Chloride Lvl 113 meq/L 95 - 109 06/[address] CHEM PANEL eGFR 32 06/09 Result Comment: The eGFR is calculated using the CKD-EPI formula. In most young, healthy individuals the eGFR will be >90 mL/ min/1.73m2. The eGFR declines with age. An eGFR of 60-89 may be normal in [facility] mL/min/1.7 /2015 some populations, particularly the elderly, for whom the CKD-EPI formula has not been extensively validated. Use of the eGFR is not recommended in the following populations: [address] Individuals with unstable creatinine concentrations, including patients and those with serious co-morbid conditions. Patients with extremes in muscle mass or diet. The data above are obtained from the National Kidney Disease Education Program (NKDEP) which additionally recommends that when the eGFR is used in patients with extremes of body mass index for purposes of drug dosing, the eGFR should be multiplied by the estimated BMI. HEMATOLOGY MPV 11.0 fL 7.4 - 10.4 06/09 [facility] HEMATOLOGY Platelet 102 K/CMM 133 - 450 06/09 [facility] HEMATOLOGY MCH 27.5 pg 27.0 - 06/09 [facility] 31.0 [facility] HEMATOLOGY RDW 13.7 % 11.5 - 06/09 [facility] 14.5 [facility] HEMATOLOGY MCHC 33.7 g/dL 32.0 - 06/09 [facility] 36.0 [facility] HEMATOLOGY WBC 6.6 K/CMM 3.7 - 10.4 06/09 [facility] HEMATOLOGY RBC 4.30 M/CMM 4.20 - 06/09 [facility] 5.40 [facility] HEMATOLOGY Hgb 11.8 g/dL 12.0 - 06/09 [facility] 16.0 [facility] HEMATOLOGY Hct 35.2 % 36.0 - 06/09 [facility] 48.0 [facility] HEMATOLOGY MCV 81.8 fL 80.0 - 06/09 [place] 98.0 [facility] HEMATOLOGY Eosinophils # 0.1 K/CMM 0.0 - 0.5 06/09 [facility] HEMATOLOGY Monocytes # 0.9 K/CMM 0.0 - 0.8 06/09 [facility] HEMATOLOGY Lymphocytes # 0.8 K/CMM 1.0 - 5.5 06/09 2015 [facility] HEMATOLOGY Eosinophils 1.6 % 0.0 - 4.0 06/09 [facility] HEMATOLOGY Monocytes 13.9 % 2.0 - 12.0 06/[address] HEMATOLOGY Segs-Bands # 4.8 K/CMM 1.5 - 8.1 06/09 [facility] /2015 [facility] HEMATOLOGY Basophils 0.2 % 0.0 - 1.0 06/09 [facility] HEMATOLOGY Lymphocytes 12.3 % 20.0 - 06/09 [facility] 40.0 [facility] HEMATOLOGY Segs 72.0 % 45.0 - 06/09 [facility] 75.0 [facility] Renal Renal EXAM: US Right RENAL TRANSPLANT WITH DOPPLER 06/08 - [facility] transplant transplant /2015 - [facility] DATE: 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 COMPARISON: Renal transplant ultrasound 12/02/2014 TECHNIQUE: Multiplanar grayscale, color Doppler and spectral Doppler ultrasound of the right lower quadrant heterotopic renal transplant and urinary bladder. FINDINGS: Right renal transplant: Size: 12.1 cm in length. Hydronephrosis: None. Echogenicity: Normal. Calculi: None. Cysts: None. Masses: None. Bladder: Normal. Main Renal Artery: PSV=69 cm/s. External Iliac Artery PSV: 130 cm/s RA:Aorta Ratio: 0.6 Intrarenal/Arcuate Arteries: Patent. No parvus et tardus waveforms. Right Superior RI: 0. 69 Right Middle RI: 0. 64 Right Inferior RI: 0. 60 Main renal veins: Patent. There is a complex multiseptated fluid collection with no internal or peripheral color Doppler flow seen superior to the right renal transplant measuring 9.3 x 5.5 x 6.8 cm. IMPRESSION: 1. Normal renal transplant . 2. No renal transplant Doppler flow abnormalities. 3. Complex multiseptated fluid collection seen superior to the right renal transplant that is new since the prior study and may represent a complex seroma, lymphangioma or hematoma. TOXICOLOGY Tacrolimus 4.3 ng/mL 5.0 - 15.0 06/08 [facility] [place] [facility] /2015 [facility] CHEM PANEL Glucose Lvl 287 mg/dL 70 - 99 06/08 [facility] CHEM PANEL Creatinine 2.37 mg/dL 0.50 - 06/08 [facility] [place] Lvl 1. [facility] CHEM PANEL BUN 27 mg/dL 7 - 22 06/08 [facility] CHEM PANEL Chloride Lvl 109 meq/L 95 - 109 06/08 [facility] CHEM PANEL CO2 16 meq/L 24 - 32 06/08 [facility] CHEM PANEL Potassium Lvl 3.7 meq/L 3.5 - 5.1 06/08 [facility] CHEM PANEL Calcium Lvl 8.8 mg/dL 8.5 - 10.5 06/08 [facility] CHEM PANEL Sodium Lvl 139 meq/L 135 - 145 06/08 [facility] CHEM PANEL eGFR 23 06/08 Result Comment: The eGFR is calculated using the CKD-EPI formula. In most young, healthy individuals the eGFR will be >90 mL/ min/1.73m2. The eGFR declines with age. An eGFR of 60-89 may be normal in [facility] mL/min/1. some populations, particularly the elderly, for whom the CKD-EPI formula has not been extensively validated. Use of the eGFR is not recommended in the following populations: [address] Individuals with unstable creatinine concentrations, including patients and those with serious co-morbid conditions. Patients with extremes in muscle mass or diet. The data above are obtained from the National Kidney Disease Education Program (NKDEP) which additionally recommends that when the eGFR is used in patients with extremes of body mass index for purposes of drug dosing, the eGFR should be multiplied by the estimated BMI. CHEM PANEL AGAP 17.7 meq/L 10.0 - 06/08 . [facility] CHEM PANEL Phosphorus 2.9 mg/dL 2.5 - 4.5 06/08 [facility] CHEM PANEL Magnesium Lvl 2.0 mg/dL 1.8 - 2.4 06/08 [facility] HEMATOLOGY WBC 9.3 K/CMM 3.7 - 10.4 06/08 [facility] HEMATOLOGY RBC 4.13 M/CMM 4.20 - 06/08 5.40 [facility] HEMATOLOGY MPV 10.7 fL 7.4 - 10.4 06/08 [facility] HEMATOLOGY Hct 34.0 % 36.0 - 06/08 48.0 [facility] HEMATOLOGY MCV 82.5 fL 80.0 - 12/29 [facility] 98.0 /2015 [facility] HEMATOLOGY MCHC 33.9 g/dL 32.0 - 06/08 [facility] 36.0 2016 [facility] HEMATOLOGY Platelet 95 K/CMM 133 - 450 06/08 [facility] HEMATOLOGY RDW 13.8 % 11.5 - 06/08 [facility] 14.5 [facility] HEMATOLOGY Hgb 11.5 g/dL 12.0 - 06/08 [facility] 16.0 [facility] HEMATOLOGY MCH 27.9 pg 27.0 - 06/08 [facility] 31.0 [facility] HEMATOLOGY Monocytes # 0.9 K/CMM 0.0 - 0.8 06/08 [facility] HEMATOLOGY Lymphocytes # 0.6 K/CMM 1.0 - 5.5 06/08 [facility] HEMATOLOGY Lymphocytes 6.4 % 20.0 - 06/08 [facility] 40.0 [facility] HEMATOLOGY Segs 83.2 % 45.0 - 06/08 [facility] 75.0 [facility] HEMATOLOGY Eosinophils 0.1 % 0.0 - 4.0 06/08 [facility] HEMATOLOGY Segs-Bands # 7.8 K/CMM 1.5 - 8.1 06/08 [facility] HEMATOLOGY Basophils 0.1 % 0.0 - 1.0 06/08 [facility] HEMATOLOGY Monocytes 10.2 % 2.0 - 12.0 06/08 2015 [facility] MOLECULAR Source BK Blood 06/08 [facility] DIAGNOSTIC Virus PCR Qnt Medical (06/08/16 4:22 AM) Center MOLECULAR BK Virus PCR 06/08 Result [facility] Qnt copies/mL Comment: Medical "Significant Center Findings called to Maryann Lanza_at 06/09/2016 13:46 by bf. Read Back OK." MOLECULAR BK Virus PCR 3.3 log 06/08 [facility] DIAGNOSTIC Qnt (log) /2015 [facility] MOLECULAR Parainfluenza Negative Negative 06/08 [facility] DIAGNOSTIC 3 PCR /2015 Medical (06/08/16 12:50 AM) Center MOLECULAR Source [employer] Swab 06/08 [facility] Parainfluenza /2015 Medical Virus PCR (06/08/16 12:50 AM) Center MOLECULAR Parainfluenza Negative Negative 06/08 [facility] DIAGNOSTIC 1 PCR /2015 Medical (06/08/16 12:50 AM) Center MOLECULAR Parainfluenza Negative Negative 06/08 [facility] DIAGNOSTIC 2 PCR /2015 Medical (06/08/16 12:50 AM) Center MOLECULAR Adenovirus Negative Negative 06/08 [facility] DIAGNOSTIC PCR /2015 Medical (06/08/16 12:50 AM) Center MOLECULAR Source [employer] Swab 06/08 [facility] DIAGNOSTIC Adenovirus Medical PCR (06/08/16 12:50 AM) Center MOLECULAR RSV PCR Negative Negative 06/08 [facility] DIAGNOSTIC /2016 Medical (06/08/16 12:50 AM) Center MOLECULAR Source [employer] Swab 06/08 [facility] DIAGNOSTIC Respiratory /2015 Medical Panel PCR (06/08/16 12:50 AM) Center MOLECULAR Influenza A Negative Negative 06/08 [facility] DIAGNOSTIC PCR /2015 Medical (06/08/16 12:50 AM) [place] MOLECULAR Influenza B Negative Negative 06/08 [facility] DIAGNOSTIC PCR /2015 Medical (06/08/16 12:50 AM) Center BACTERIAL - Source Strep Urine 06/07 [facility] SEROLOGY /2015 Medical (06/07/16 4:25 PM) [place] BACTERIAL - Strep Negative Negative 06/07 [facility] SEROLOGY pneumoniae Ag [facility] (06/07/16 4:25 PM) [place] CHEM PANEL Magnesium Lvl 2.0 mg/dL 1.8 - 2.4 06/07 [facility]2015 [facility] CHEM PANEL Phosphorus 1.6 mg/dL 2.5 - 4.5 06/[address] CHEM PANEL AST 10 unit/L 0 - 37 06/07 [facility]2015 [facility] CHEM PANEL Alk Phos 65 unit/L 39 - 136 06/07 [facility]2015 [facility] CHEM PANEL Bili Total 0.7 mg/dL 0.2 - 1.3 06/07 [facility]2015 [facility] CHEM PANEL Total Protein 7.2 g/dL 6.4 - 8.4 06/[address] CHEM PANEL A/G Ratio 0.8 0.7 - 1.6 06/[address] CHEM PANEL ALT 11 unit/L 0 - 65 06/[address] CHEM PANEL Albumin Lvl 3.3 g/dL 3.5 - 5.0 06/[address] CHEM PANEL Globulin 3.9 g/dL 2.7 - 4.2 06/07 [place] [facility] CHEM PANEL B/C Ratio 12 6 - 25 06/07 [facility]2015 [facility] SPECIAL Hgb A1C 6.8 % <=5.6 % 06/07 [facility] CHEMISTRY [facility] TOXICOLOGY Tacrolimus null 5.0 - 15.0 06/07 [facility] Lvl [facility] CHEM PANEL Lactic Acid 1.8 mMol/L 0.5 - 2.2 06/07 [facility] Lvl [facility] MOLECULAR CMV PCR Qnt null 06/07 [facility] DIAGNOSTIC (log) [facility] MOLECULAR CMV PCR Qnt Not Detected 06/07 [facility] DIAGNOSTIC [facility] (06/07/16 12:03 AM) [place] MOLECULAR Source BK Blood 06/07 [facility] DIAGNOSTIC Virus PCR Qnt [facility] (06/07/16 12:03 AM) [place] MOLECULAR BK Virus PCR 1553 06/07 Result [facility] Qnt copies/mL Comment: Medical "Significant Center Findings called to Maryann Lanza_at 06/09/2016 13:46 by bf. Read Back OK." MOLECULAR BK Virus PCR 3.2 log 06/07 [facility] DIAGNOSTIC Qnt (log) [facility] URINE AND UA Nitrite Negative Negative 06/07 [facility] STOOL [facility] (06/06/16 11:02 PM) [place] URINE AND UA 0.2 EU/dL 0.1 - 1.0 06/07 [facility] Urobilinogen [facility] URINE AND UA Sq Epi Few /LPF Few /LPF 06/07 [facility] STOOL [facility] URINE AND UA Leuk Est Small Negative 06/07 [facility] STOOL [facility] *ABN* [place] (06/06/16 11:02 PM) URINE AND UA WBC None Seen None Seen 06/07 [facility] STOOL /2015 [facility] (06/06/16 11:02 PM) [place] URINE AND UA RBC None Seen 0 - 2 06/07 [facility] STOOL /2015 [facility] (06/06/16 11:02 PM) [place] URINE AND UA Tr Phos Few /HPF None Seen 06/07 [facility] Juana /HPF [facility] URINE AND UA Bacteria Many /HPF None Seen 06/07 [facility] STOOL /HPF /2015 [facility] URINE AND UA Spec Grav 1.010 <=1.030 06/07 [facility] STOOL /2015 [facility] URINE AND UA pH >=9.0 5.0 - 8.0 06/07 [facility] STOOL Medical *ABN* Center (06/06/16 11:02 PM) URINE AND UA Protein 30 mg/dL Negative 06/07 [facility] STOOL mg/dL [facility] URINE AND UA Glucose Negative Negative 06/07 [facility] STOOL [facility] (06/06/16 11:02 PM) [place] URINE AND UA Bili Negative Negative 06/07 [facility] Medical *NA* Center (06/06/16 11:02 PM) URINE AND UA Ketones 15 mg/dL Negative 06/07 [facility] STOOL mg/dL [facility] URINE AND UA Blood Negative Negative 06/07 [facility] STOOL [facility] (06/06/16 11:02 PM) [place] URINE AND UA Color Yellow Yellow 06/07 [facility] *NA* [place] (06/06/16 11:02 PM) URINE AND UA Turbidity Cloudy Clear 06/07 [facility] *ABN* [place] (06/06/16 11:02 PM) URINE AND UA Blood Trace Negative 06/07 [facility] STOOL Medical *ABN* [place] (06/06/16 9:45 PM) URINE AND UA 0.2 EU/dL 0.1 - 1.0 06/07 [facility] Urobilinogen [facility] URINE AND UA pH 5.5 5.0 - 8.0 06/07 [facility] STOOL [facility] URINE AND UA Leuk Est Negative Negative 06/07 [facility] (06/06/16 9:45 PM) [place] URINE AND UA Nitrite Negative Negative 06/07 [facility] STOOL [facility] (06/06/16 9:45 PM) [place] URINE AND UA Bili Small Negative 06/07 [facility] STOOL Medical *ABN* Center (06/06/16 9:45 PM) URINE AND UA Ketones >=80 mg/dL Negative 06/07 [facility] STOOL mg/dL [facility] URINE AND UA Glucose Negative Negative 06/07 [facility] STOOL [facility] (06/06/16 9:45 PM) [place] URINE AND UA Protein Negative Negative 06/07 [facility] STOOL [facility] (06/06/16 9:45 PM) [place] URINE AND UA Spec Grav 1.015 <=1.030 06/07 [facility] URINE AND UA Turbidity Clear Clear 06/07 [facility] STOOL [facility] (06/06/16 9:45 PM) [place] URINE AND UA Color Yellow Yellow 06/07 [facility] *NA* [place] (06/06/16 9:45 PM) URINE AND UA Bacteria Few /HPF None Seen 06/07 [facility] STOOL /HPF [facility] URINE AND UA Mucus Rare /LPF None Seen 06/07 [facility] STOOL /LPF [facility] URINE AND UA RBC None Seen 0 - 2 06/07 [facility] STOOL [facility] (06/06/16 9:45 PM) [place] URINE AND UA Sq Epi Moderate Few /LPF 06/07 [facility] STOOL /LPF [facility] URINE AND UA WBC 0-2 /HPF None Seen 06/07 [facility] STOOL /HPF [facility] URINE AND Micro? Performed 06/07 [facility] (06/06/16 9:45 PM) [place] CHEM PANEL Lactic Acid 1.3 mMol/L 0.5 - 2.2 06/07 [facility] Lvl [facility] VIRAL - Influ A Negative Negative 06/06 [facility] SEROLOGY [facility] (06/06/16 3:40 PM) [place] VIRAL - Influ B Negative Negative 06/06 [facility] SEROLOGY [facility] (06/06/16 3:40 PM) [place] Chest 1view Chest 1view EXAM: XR CHEST 1 VIEW 06/06 [facility] DX DX - [facility] This report was dictated by a Gl[employer] Pairer/Fellow. I have personally reviewed the images as Center well as the Resident's interpretation and agree with the findings. DATE: 06/06/2016 4:44 PM [employer]ER SAL[employer] REP Read by: Nakita Lugo MD Resident: Nakita Lugo MD Dictated Date/time: 06/06/16 18:44 Electronically Signed by: Afshan Garcia MD 06/06/16 20:12 FINAL REPORT INDICATION: Chest pain COMPARISON: Chest radiograph dated 03/06/2016 TECHNIQUE: AP chest FINDINGS: The lungs are clear. There is no pleural effusion. The cardiomediastinal silhouette is within normal limits. No acute osseous abnormalities are identified. A previous gastric drainage tube has been removed since March 06, 2016. IMPRESSION: No acute cardiopulmonary disease nor significant interval change in the overall appearance of the chest radiograph is identified since 11/2015. SPECIAL Hgb A1C 6.5 % <=5.6 % 05/02 [facility] CHEMISTRY /2015 [facility] REFERENCE HLA Misc Test See Report 1 03/23 Result [facility] LAB RESULTS Comment: Medical (03/23/16 2:23 PM) Reference lab Center results scanned in [facility]. Results displayed in [id number]-Outside Lab Documents (Imaged) under date/time results were scanned. Report sent for scanning on 04/04/2016. REFERENCE Test Name C1q 03/23 [facility] LAB RESULTS RESULTS [facility] REFERENCE HLA Misc Test See Report 2 03/23 Result [facility] LAB RESULTS Comment: Medical (03/23/16 8:24 AM) Reference lab Center results scanned in [facility]. Results displayed in [id number] EFER[facility] LAB-Outside Lab Documents (Imaged) under date/time results were scanned. Report sent for scanning on 03/28/2016. REFERENCE Test Name DSA 03/23 [facility] LAB RESULTS [facility] CHEM PANEL Phosphorus 2.6 mg/dL 2.5 - 4.5 03/10 [place] [facility] CHEM PANEL Magnesium Lvl 2.0 mg/dL 1.8 - 2.4 03/10 [facility] /2015 [facility] CHEM PANEL eGFR 52 03/10 Result Comment: The eGFR is calculated using the CKD-EPI formula. In most young, healthy individuals the eGFR will be >90 mL/ min/1.73m2. The eGFR declines with age. An eGFR of 60-89 may be normal in [facility] mL/min/1. some populations, particularly the elderly, for whom the CKD-EPI formula has not been extensively validated. Use of the eGFR is not recommended in the following populations: [address] Individuals with unstable creatinine concentrations, including patients and those with serious co-morbid conditions. Patients with extremes in muscle mass or diet. The data above are obtained from the National Kidney Disease Education Program (NKDEP) which additionally recommends that when the eGFR is used in patients with extremes of body mass index for purposes of drug dosing, the eGFR should be multiplied by the estimated BMI. CHEM PANEL Creatinine 1.22 mg/dL 0.50 - 03/10 [facility] Lvl 1.40 [facility] CHEM PANEL BUN 21 mg/dL 7 - 03/10 [facility] CHEM PANEL Glucose Lvl 112 mg/dL 70 - 99 03/10 [facility] CHEM PANEL Chloride Lvl 111 meq/L 95 - 109 03/10 [facility] CHEM PANEL Potassium Lvl 3.4 meq/L 3.5 - 5.1 03/10 [facility] CHEM PANEL Sodium Lvl 143 meq/L 135 - 145 03/10 [facility] CHEM PANEL Calcium Lvl 8.8 mg/dL 8.5 - 10.5 03/10 [facility] CHEM PANEL CO2 23 meq/L 24 - 32 03/10 [facility] CHEM PANEL AGAP 12.4 meq/L 10.0 - 03/10 20.0 [facility] HEMATOLOGY Platelet 107 K/CMM 133 - 450 03/10 [facility] HEMATOLOGY MPV 10.8 fL 7.4 - 10.4 03/10 [facility] HEMATOLOGY RDW 13.9 % 11.5 - 03/10 14.5 [facility] HEMATOLOGY WBC 5.4 K/CMM 3.7 - 10.4 03/10 [facility] HEMATOLOGY RBC 4.36 M/CMM 4.20 - 03/10 5.40 [facility] HEMATOLOGY Hgb 12.1 g/dL 12.0 - 03/10 16.0 [facility] HEMATOLOGY Hct 35.5 % 36.0 - 03/10 48.0 [facility] HEMATOLOGY MCHC 34.0 g/dL 32.0 - 03/10 36.0 [facility] HEMATOLOGY MCV 81.5 fL 80.0 - 03/10 98.0 [facility] HEMATOLOGY MCH 27.7 pg 27.0 - 03/10 31.0 [facility] HEMATOLOGY Lymphocytes 18.3 % 20.0 - 03/10 [place] 40.0 2016 [facility] HEMATOLOGY Monocytes 12.2 % 2.0 - 12.0 03/10 [facility] HEMATOLOGY Segs 65.9 % 45.0 - 03/10 75.0 [facility] HEMATOLOGY Lymphocytes # 1.0 K/CMM 1.0 - 5.5 03/10 [facility] HEMATOLOGY Monocytes # 0.7 K/CMM 0.0 - 0.8 03/10 [facility]2015 [facility] HEMATOLOGY Segs-Bands # 3.5 K/CMM 1.5 - 8.1 03/10 [facility]2015 [facility] HEMATOLOGY Eosinophils 3.2 % 0.0 - 4.0 03/10 [facility]2015 [facility] HEMATOLOGY Basophils 0.4 % 0.0 - 1.0 03/[address] HEMATOLOGY Eosinophils # 0.2 K/CMM 0.0 - 0.5 03/10 [facility]2015 [facility] TOXICOLOGY Tacrolimus 8.7 ng/mL 5.0 - 15.0 03/10 [facility] /2015 [facility] CHEM PANEL Phosphorus 2.1 mg/dL 2.5 - 4.5 03/[address] CHEM PANEL Magnesium Lvl 2.4 mg/dL 1.8 - 2.4 03/[address] ELECTROLYTE Chloride Lvl 112 meq/L 95 - 109 03/[address] ELECTROLYTE CO2 22 meq/L 24 - 32 03/[address] ELECTROLYTE Potassium Lvl 3.8 meq/L 3.5 - 5.1 03/[address] ELECTROLYTE Calcium Lvl 9.0 mg/dL 8.5 - 10.5 03/[address] ELECTROLYTE eGFR 57 03/09 Result Comment: The eGFR is calculated using the CKD-EPI formula. In most young, healthy individuals the eGFR will be >90 mL/ min/1.73m2. The eGFR declines with age. An eGFR of 60-89 may be normal in [facility] [place] [facility] mL/min/1 some populations, particularly the elderly, for whom the CKD-EPI formula has not been extensively validated. Use of the eGFR is not recommended in the following populations: [address] Individuals with unstable creatinine concentrations, including patients and those with serious co-morbid conditions. Patients with extremes in muscle mass or diet. The data above are obtained from the National Kidney Disease Education Program (NKDEP) which additionally recommends that when the eGFR is used in patients with extremes of body mass index for purposes of drug dosing, the eGFR should be multiplied by the estimated BMI. ELECTROLYTE Glucose Lvl 148 mg/dL 70 - 99 03/[address] ELECTROLYTE Sodium Lvl 143 meq/L 135 - 145 03/09 [facility] ELECTROLYTE BUN 26 mg/dL 7 - 22 03/09 [facility] ELECTROLYTE Creatinine 1.13 mg/dL 0.50 - 03/09 [facility] [place] [facility] Lvl 1.40 [facility] ELECTROLYTE AGAP 12.8 meq/L 10.0 - 03/09 [facility] S 20.0 [facility] HEMATOLOGY Segs 75.1 % 45.0 - 03/09 [place] 75.0 [facility] HEMATOLOGY Lymphocytes 11.2 % 20.0 - 03/09 [place] 40.0 [facility] HEMATOLOGY Monocytes 11.4 % 2.0 - 12.0 03/09 [facility] HEMATOLOGY Eosinophils 2.1 % 0.0 - 4.0 03/09 [facility] HEMATOLOGY Segs-Bands # 4.6 K/CMM 1.5 - 8.1 03/09 [facility] HEMATOLOGY Lymphocytes # 0.7 K/CMM 1.0 - 5.5 03/09 [facility] HEMATOLOGY Monocytes # 0.7 K/CMM 0.0 - 0.8 03/09 [facility] HEMATOLOGY Eosinophils # 0.1 K/CMM 0.0 - 0.5 03/09 [facility] HEMATOLOGY Basophils 0.2 % 0.0 - 1.0 03/09 [facility] HEMATOLOGY WBC 6.1 K/CMM 3.7 - 10.4 03/09 [facility] HEMATOLOGY Hgb 11.9 g/dL 12.0 - 03/09 16.0 [facility] HEMATOLOGY RBC 4.31 M/CMM 4.20 - 03/09 5.40 [facility] HEMATOLOGY MCV 81.6 fL 80.0 - 03/09 [place] 98.0 [facility] HEMATOLOGY Hct 35.2 % 36.0 - 03/09 48.0 [facility] HEMATOLOGY MCHC 33.8 g/dL 32.0 - 03/09 36.0 [facility] HEMATOLOGY RDW 13.8 % 11.5 - 03/09 [place] 14.5 [facility] HEMATOLOGY Platelet 98 K/CMM 133 - 450 03/09 [facility] HEMATOLOGY MCH 27.6 pg 27.0 - 03/09 [facility] 31.0 [facility] HEMATOLOGY MPV 10.5 fL 7.4 - 10.4 03/09 [facility] TOXICOLOGY Tacrolimus 6.5 ng/mL 5.0 - 15.0 03/09 [facility] CHEM PANEL Phosphorus 1.2 mg/dL 2.5 - 4.5 03/08 Result Comment: [facility] Result(s) called to Nilton Cardenas at 03/08/2016 06:43 byJw. Read back OK. CHEM PANEL Magnesium Lvl 2.4 mg/dL 1.8 - 2.4 03/08 [facility] CHEM PANEL eGFR 54 03/08 Result Comment: The eGFR is calculated using the CKD-EPI formula. In most young, healthy individuals the eGFR will be >90 mL/ min/1.73m2. The eGFR declines with age. An eGFR of 60-89 may be normal in [facility] mL/min/1. some populations, particularly the elderly, for whom the CKD-EPI formula has not been extensively validated. Use of the eGFR is not recommended in the following populations: [address] Individuals with unstable creatinine concentrations, including patients and those with serious co-morbid conditions. Patients with extremes in muscle mass or diet. The data above are obtained from the National Kidney Disease Education Program (NKDEP) which additionally recommends that when the eGFR is used in patients with extremes of body mass index for purposes of drug dosing, the eGFR should be multiplied by the estimated BMI. CHEM PANEL Potassium Lvl 3.9 meq/L 3.5 - 5.1 03/08 [facility] CHEM PANEL Sodium Lvl 144 meq/L 135 - 145 03/08 [facility] CHEM PANEL CO2 21 meq/L 24 - 32 03/08 [facility] CHEM PANEL Chloride Lvl 112 meq/L 95 - 109 03/08 [facility] CHEM PANEL Creatinine 1.18 mg/dL 0.50 - 03/08 [facility] Lvl 1.40 [facility] CHEM PANEL BUN 28 mg/dL 7 - 22 03/08 [facility] CHEM PANEL Glucose Lvl 200 mg/dL 70 - 99 03/08 [facility] CHEM PANEL Calcium Lvl 8.7 mg/dL 8.5 - 10.5 03/08 [facility] CHEM PANEL AGAP 14.9 meq/L 10.0 - 03/08 [facility] 20.0 /2015 [facility] HEMATOLOGY WBC 8.1 K/CMM 3.7 - 10.4 03/08 [facility] HEMATOLOGY Hgb 12.3 g/dL 12.0 - 03/08 [facility] 16.0 [facility] HEMATOLOGY RBC 4.51 M/CMM 4.20 - 03/08 [facility] 5.40 /2015 [facility] HEMATOLOGY Hct 36.9 % 36.0 - 03/08 [facility] 48.0 [facility] HEMATOLOGY MCV 81.7 fL 80.0 - 03/08 [facility] 98.0 [facility] HEMATOLOGY MCH 27.3 pg 27.0 - 03/08 [facility] 31.0 [facility] HEMATOLOGY MCHC 33.4 g/dL 32.0 - 03/08 [facility] 36.0 [facility] HEMATOLOGY RDW 14.3 % 11.5 - 03/08 [facility] 14.5 [facility] HEMATOLOGY Platelet 107 K/CMM 133 - 450 03/08 [facility] HEMATOLOGY MPV 10.9 fL 7.4 - 10.4 03/08 [facility] HEMATOLOGY Monocytes 8.7 % 2.0 - 12.0 03/08 [facility] HEMATOLOGY Eosinophils 0.9 % 0.0 - 4.0 03/08 [facility] HEMATOLOGY Basophils 0.3 % 0.0 - 1.0 03/08 [facility] HEMATOLOGY Lymphocytes 6.8 % 20.0 - 03/08 [facility] 40.0 [facility] HEMATOLOGY Segs 83.3 % 45.0 - 03/08 [facility] 75.0 [facility] HEMATOLOGY Monocytes # 0.7 K/CMM 0.0 - 0.8 03/08 [facility] HEMATOLOGY Lymphocytes # 0.6 K/CMM 1.0 - 5.5 03/08 [facility] HEMATOLOGY Segs-Bands # 6.8 K/CMM 1.5 - 8.1 03/08 [facility] HEMATOLOGY Eosinophils # 0.1 K/CMM 0.0 - 0.5 03/08 [facility] TOXICOLOGY Tacrolimus 4.6 ng/mL 5.0 - 15.0 03/08 [facility] Lvl /2015 [facility] Abdomen AP Abdomen AP DX EXAM: XR ABDOMEN 2 VIEWS 03/07 - [facility] DX /2015 - Medical This report was dictated by a Glove Pairer/Fellow. I have personally reviewed the images as Center well as the Resident's interpretation and agree with the findings. DATE: 03/07/2016 10:09 AM CDT Read by: Afshan Garcia (Fellow) Analia Resident: Afshan Garcia (Fellow) Analia Dictated Date/time: 03/07/16 13:47 Electronically Signed by: Dave Edwards MD 03/07/16 13:55 FINAL REPORT INDICATION: Abdominal distension ADDITIONAL INFORMATION: Status post surgical repair of incisional hernia. COMPARISON: AP pelvis 09/24/2013 at 0741 hours TECHNIQUE: 2 AP views of the abdomen. FINDINGS: Lines and tubes: Gastric drainage tube enters the stomach and then moves retrograde to fundus of stomach. Tip of Noel catheter projects over the lower central pelvis. Surgical clips project over the right pelvis. Lower thorax: Vague linear opacities are present in retrocardiac left lung base most consistent with subsegmental atelectasis. Recommend comparison to chest radiograph. Bowel: Nonobstructive, normal bowel gas pattern. Solid organs: No abnormal mass or organomegaly seen. No abnormal calcifications found. Surgical bisi are seen in the right lower pelvis and right iliac fossa consistent with renal transplant. Bones: No acute abnormality. IMPRESSION: 1. Gastric drainage tube placed with tip returning retrograde to gastric fundus. 2. Postsurgical change of right iliac fossa renal transplant. 3. Normal bowel gas pattern. URINE AND UA pH 6.5 5.0 - 8.0 03/07 [facility] /2016 [facility] URINE AND UA Spec Grav 1.013 <=1.030 03/07 [facility] /2015 [facility] URINE AND UA Ketones TR 03/07 [facility]2015 [facility] URINE AND UA <=1.0 0.1 - 1.0 03/07 [facility] Urobilinogen mg/dL /2015 [facility] URINE AND UA RBC null 0 - 2 03/07 [facility]2016 [facility] URINE AND UA Mucus Few /LPF None Seen 03/07 [facility] STOOL /LPF /2015 [facility] URINE AND UA Nitrite Negative Negative 03/07 [facility] /2015 [facility] (03/06/16 10:42 PM) Center URINE AND UA WBC 8 /HPF 0 - 5 03/07 [place] STOOL /2015 [facility] Center URINE AND UA Leuk Est Small Negative 03/07 [facility] STOOL Medical *ABN* Center (03/06/16 10:42 PM) URINE AND UA Bili Negative Negative 03/07 [facility] Medical *NA* Center (03/06/16 10:42 PM) URINE AND UA Glucose >=1000 Negative 03/07 [facility] STOOL mg/dL mg/dL [facility] URINE AND UA Protein Negative Negative 03/07 [facility] STOOL mg/dL mg/dL /2015 [facility] URINE AND UA Blood Negative Negative 03/07 [facility] STOOL /2015 [facility] (03/06/16 10:42 PM) [place] URINE AND UA Sq Epi None Seen 03/07 [facility] URINE AND UA Turbidity Clear Clear 03/07 [facility] (03/06/16 10:42 PM) [place] URINE AND UA Color Light Yellow Yellow 03/07 [facility] Medical *NA* Center (03/06/16 10:42 PM) BLOOD BANK ABO/Rh O POS 03/06 [place] RESULTS /2015 [facility] BLOOD BANK Antibody Scrn Negative 03/06 [facility] RESULTS /2015 Medical (03/06/16 10:13 AM) [place] MOLECULAR BK Virus PCR 3.2 log 03/06 [facility] DIAGNOSTIC Qnt (log) [facility] MOLECULAR BK Virus PCR 1615 03/06 Result [facility] DIAGNOSTIC Qnt copies/mL /2015 Comment: Medical "Significant Center Findings called to Bernardino Coombs at 0912 03/09/2016 by ss. Read Back OK." MOLECULAR Source BK Blood 03/06 [facility] DIAGNOSTIC Virus PCR Qnt /2015 Medical *NA* Center (03/06/16 10:13 AM) MOLECULAR EBV PCR Qnt null 03/06 [place] DIAGNOSTIC (log) /2015 [facility] Center MOLECULAR EBV PCR Qnt Not Detected 03/06 [place] DIAGNOSTIC /2015 Medical (03/06/16 10:13 AM) [place] MOLECULAR CMV PCR Qnt null 03/06 [facility] DIAGNOSTIC (log) Medical Center MOLECULAR CMV PCR Qnt Not Detected 03/06 [place] DIAGNOSTIC /2015 Medical (03/06/16 10:13 AM) [place] Chest 1view Chest 1view EXAM: XR CHEST 1 VIEW 03/06 - [facility] [place] DX DX /2015 [facility] DATE: 03/06/2016 9:35 AM CDT Read by: Ceasar Rico MD Dictated Date/time: 03/06/16 10:32 Electronically Signed by: Ceasar Rico MD 03/06/16 10:33 FINAL REPORT INDICATION: Crackles COMPARISON: 03/12/2015. TECHNIQUE: AP chest FINDINGS: Lines and tubes: Enteric tube is seen with a loop in the stomach. The tip is overlying the mid gastric body. Lungs and pleura: No pulmonary or pleural based abnormality is identified. Heart and mediastinum: Stable mediastinal contours. IMPRESSION: 1. No acute findings in the chest. HEMATOLOGY INR 0.99 0.85 - 03/06 [facility] 1.17 [facility] HEMATOLOGY PTT 28.2 s 22.9 - 03/06 [facility] 35.8 /2015 [facility] HEMATOLOGY PT 13.4 s 12.0 - 03/06 [facility] 14.7 [facility] SPECIAL Hgb A1C 7.1 % <=5.6 % 01/26 [facility] CHEMISTRY /2015 [facility] SPECIAL Hgb A1C 6.9 % <=5.6 % 08/12 [facility] CHEMISTRY /[address] [place] [address] SPECIAL Hgb A1C 7.9 % <=5.6 % 05/14 [facility] CHEMISTRY /[address] [place] [address] Chest 2 Chest 2 views EXAM: CHEST 2 VIEWS 03/12 [facility] views DX DX [facility] DATE: Mar 12, 2015 11:58:00 AM Read by: Julissa Wright MD Dictated Date/time: 03/12/15 12:06 Electronically Signed by: Julissa Wright MD 03/12/15 12:07 FINAL REPORT INDICATION: Chest pain COMPARISON: 02/01/2015 TECHNIQUE: Frontal and lateral chest radiographs FINDINGS: The heart size is within normal limits. The lungs are clear. Minimal atelectasis of both lung bases has resolved. The costophrenic sulci are sharp without effusion. The osseous structures are unremarkable. IMPRESSION: No acute abnormality identified. CHEM PANEL Phosphorus 2.8 mg/dL 2.5 - 4.5 02/03 [facility]2014 [facility] CHEM PANEL Magnesium Lvl 2.2 mg/dL 1.8 - 2.4 02/03 [facility]2014 [facility] CHEM PANEL eGFR 35 02/03 Result Comment: The eGFR is calculated using the CKD-EPI formula. In most young, healthy individuals the eGFR will be >90 mL/ min/1.73m2. The eGFR declines with age. An eGFR of 60-89 may be normal in [facility] mL/min/1. some populations, particularly the elderly, for whom the CKD-EPI formula has not been extensively validated. Use of the eGFR is not recommended in the following populations: [address] Individuals with unstable creatinine concentrations, including patients and those with serious co-morbid conditions. Patients with extremes in muscle mass or diet. The data above are obtained from the National Kidney Disease Education Program (NKDEP) which additionally recommends that when the eGFR is used in patients with extremes of body mass index for purposes of drug dosing, the eGFR should be multiplied by the estimated BMI. CHEM PANEL Creatinine 1.7 mg/dL 0.5 - 1.4 02/03 [facility] [place] [facility] CHEM PANEL Glucose Lvl 59 mg/dL 70 - 99 02/[address] CHEM PANEL BUN 19 mg/dL 7 - 22 02/[address] CHEM PANEL Potassium Lvl 3.6 meq/L 3.5 - 5.1 02/[address] CHEM PANEL Sodium Lvl 145 meq/L 135 - 145 02/[address] CHEM PANEL CO2 26 meq/L 24 - 32 02/[address] CHEM PANEL Chloride Lvl 110 meq/L 95 - 109 02/[address] CHEM PANEL Calcium Lvl 9.3 mg/dL 8.5 - 10.5 02/[address] CHEM PANEL AGAP 12.6 meq/L 10.0 - 02/03 [facility] .0 [facility] HEMATOLOGY Eosinophils 5.4 % 0.0 - 4.0 02/[address] HEMATOLOGY Monocytes # 0.5 K/CMM 0.0 - 0.8 02/[address] HEMATOLOGY Segs-Bands # 2.1 K/CMM 1.5 - 8.1 02/[address] HEMATOLOGY Eosinophils # 0.2 K/CMM 0.0 - 0.5 02/[address] HEMATOLOGY Basophils 0.8 % 0.0 - 1.0 02/[address] HEMATOLOGY Lymphocytes # 0.7 K/CMM 1.0 - 5.5 02/03 [facility] HEMATOLOGY Monocytes 15.1 % 2.0 - 12.0 02/03 [facility] HEMATOLOGY Segs 59.5 % 45.0 - 02/03 75.0 /2014 [facility] HEMATOLOGY Lymphocytes 19.2 % 20.0 - 02/03 40.0 [facility] HEMATOLOGY Hgb 9.7 g/dL 12.0 - 02/03 16.0 [facility] HEMATOLOGY WBC 3.6 K/CMM 3.7 - 10.4 02/03 [facility] HEMATOLOGY Hct 29.9 % 36.0 - 02/03 48.0 [facility] HEMATOLOGY MCV 79.3 fL 80.0 - 02/03 98.0 [facility] HEMATOLOGY Platelet 153 K/CMM 133 - 450 02/03 [facility] HEMATOLOGY RDW 13.2 % 11.5 - 02/03 14.5 [facility] HEMATOLOGY RBC 3.77 M/CMM 4.20 - 02/03 5.40 [facility] HEMATOLOGY MCHC 32.5 g/dL 32.0 - 02/03 36.0 [facility] HEMATOLOGY MCH 25.8 pg 27.0 - 02/03 31.0 [facility] HEMATOLOGY MPV 9.4 fL 7.4 - 10.4 02/03 [facility] SPECIAL Hgb A1C 5.9 % <=5.6 % 02/03 [facility] CHEMISTRY [facility] TOXICOLOGY Tacrolimus null 5.0 - 15.0 02/03 [facility] Lvl [facility] MOLECULAR BK Virus PCR [id number] 02/02 Result [facility] DIAGNOSTIC Qnt copies/mL /2014 Comment: Medical "Significant Center Findings called to Mallika Zeng at 02/03/2015 16:56 by gs.Read Back OK." MOLECULAR Source BK Plasma 02/02 [facility] DIAGNOSTIC Virus PCR Qnt [facility] MOLECULAR BK Virus PCR 5.0 log 02/02 [facility] DIAGNOSTIC Qnt (log) [facility] CHEM PANEL eGFR 38 02/02 Result Comment: The eGFR is calculated using the CKD-EPI formula. In most young, healthy individuals the eGFR will be >90 mL/ min/1.73m2. The eGFR declines with age. An eGFR of 60-89 may be normal in [facility] mL/min/1.7 /2014 some populations, particularly the elderly, for whom the CKD-EPI formula has not been extensively validated. Use of the eGFR is not recommended in the following populations: Medical [facility] Individuals with unstable creatinine concentrations, including patients and those with serious co-morbid conditions. Patients with extremes in muscle mass or diet. The data above are obtained from the National Kidney Disease Education Program (NKDEP) which additionally recommends that when the eGFR is used in patients with extremes of body mass index for purposes of drug dosing, the eGFR should be multiplied by the estimated BMI. CHEM PANEL CO2 23 meq/L 24 - 32 02/02 [facility] CHEM PANEL Chloride Lvl 111 meq/L 95 - 109 02/02 [facility]2014 [facility] CHEM PANEL Potassium Lvl 3.8 meq/L 3.5 - 5.1 02/02 [facility]2014 [facility] CHEM PANEL Glucose Lvl 85 mg/dL 70 - 99 02/02 [facility]2014 [facility] CHEM PANEL Calcium Lvl 9.0 mg/dL 8.5 - 10.5 02/02 [facility]2014 [facility] CHEM PANEL AGAP 11.8 meq/L 10.0 - 02/02 [facility] 20.0 [facility] CHEM PANEL Sodium Lvl 142 meq/L 135 - 145 02/02 [facility]2014 [facility] CHEM PANEL Creatinine 1.6 mg/dL 0.5 - 1.4 02/02 [facility] CHEM PANEL BUN 20 mg/dL 7 - 22 02/02 [facility]2014 [facility] MOLECULAR Source BK Plasma 02/01 [facility] DIAGNOSTIC Virus PCR Qnt [facility] MOLECULAR BK Virus PCR 5.1 log 02/01 [facility] Qnt (log) [facility] MOLECULAR BK Virus PCR [id number] 02/01 Result [facility] Qnt copies/mL /2014 Comment: Medical "Significant Center Findings called to Mallika Zeng at 02/03/2015 16:56 by gs.Read Back OK." MOLECULAR CMV PCR Qnt null 02/01 [facility] DIAGNOSTIC (log) [facility] MOLECULAR CMV PCR Qnt Negative Negative 02/01 [facility] /2014 [facility] (02/01/15 1:10 PM) Center CHEM PANEL Phosphorus 2.4 mg/dL 2.5 - 4.5 02/01 [facility] CHEM PANEL Magnesium Lvl 2.1 mg/dL 1.8 - 2.4 02/01 [facility] CHEM PANEL eGFR 35 02/01 Result Comment: The eGFR is calculated using the CKD-EPI formula. In most young, healthy individuals the eGFR will be >90 mL/ min/1.73m2. The eGFR declines with age. An eGFR of 60-89 may be normal in [facility] mL/min/1. some populations, particularly the elderly, for whom the CKD-EPI formula has not been extensively validated. Use of the eGFR is not recommended in the following populations: [address] Individuals with unstable creatinine concentrations, including patients and those with serious co-morbid conditions. Patients with extremes in muscle mass or diet. The data above are obtained from the National Kidney Disease Education Program (NKDEP) which additionally recommends that when the eGFR is used in patients with extremes of body mass index for purposes of drug dosing, the eGFR should be multiplied by the estimated BMI. CHEM PANEL AGAP 11.4 meq/L 10.0 - 02/01 [facility] 20.0 [facility] CHEM PANEL Chloride Lvl 112 meq/L 95 - 109 02/01 [facility] CHEM PANEL CO2 24 meq/L 24 - 32 02/01 [facility] CHEM PANEL Calcium Lvl 8.8 mg/dL 8.5 - 10.5 02/01 [facility] CHEM PANEL Potassium Lvl 3.4 meq/L 3.5 - 5.1 02/01 [facility] CHEM PANEL Sodium Lvl 144 meq/L 135 - 145 02/01 [facility] CHEM PANEL BUN 20 mg/dL 7 - 22 02/01 [facility] CHEM PANEL Creatinine 1.7 mg/dL 0.5 - 1.4 02/01 [facility] CHEM PANEL Glucose Lvl 79 mg/dL 70 - 99 02/01 [facility] HEMATOLOGY RBC 3.48 M/CMM 4.20 - 02/01 [facility] 5.40 [facility] HEMATOLOGY Hct 27.4 % 36.0 - 02/01 [facility] 48.0 [facility] HEMATOLOGY MCV 78.9 fL 80.0 - 02/01 [facility] 98.0 [facility] HEMATOLOGY WBC 5.0 K/CMM 3.7 - 10.4 02/01 [facility] HEMATOLOGY Hgb 9.1 g/dL 12.0 - 02/01 [facility] HEMATOLOGY MCHC 33.1 g/dL 32.0 - 02/01 . [facility] HEMATOLOGY MPV 9.7 fL 7.4 - 10.4 02/01 [facility] HEMATOLOGY Platelet 143 K/CMM 133 - 450 02/01 [facility] HEMATOLOGY RDW 13.2 % 11. - 02/01 14. [facility] HEMATOLOGY MCH 26.1 pg 27.0 - 02/01 31. [facility] Chest 1view Chest 1view Chest one view, February 01, 2015 at 8:09 a.m. - [facility] DX - [facility] HISTORY: 49-year-old female with abnormal chest sounds. Read by: Hanh Carroll MD Dictated Date/time: 02/01/15 10:16 Electronically Signed by: Hanh Carroll MD 02/01/15 10:58 FINAL REPORT FINDINGS: Comparison is made to January 29. The cardiomediastinal silhouette is stable. Subsegmental atelectasis is seen in the bilateral lower lobes. No pleural effusions are identified. IMPRESSION: Bilateral lower lobe subsegmental atelectasis. CHEM PANEL Magnesium Lvl 1.9 mg/dL 1.8 - 2.4 01/31 [facility] CHEM PANEL Phosphorus 2.1 mg/dL 2.5 - 4.5 01/31 [facility] HEMATOLOGY MPV 9.3 fL 7.4 - 10.4 01/31 [facility] HEMATOLOGY Platelet 156 K/CMM 133 - 450 01/31 [facility] HEMATOLOGY MCHC 33.7 g/dL 32.0 - 01/31 . [facility] HEMATOLOGY RDW 13.2 % 11.5 - 01/31 . [facility] HEMATOLOGY MCH 26.1 pg 27.0 - 01/31 31. [facility] HEMATOLOGY Hgb 9.9 g/dL 12.0 - 01/31 16. [facility] HEMATOLOGY Hct 29.5 % 36.0 - 01/31 [place] 48.0 /2014 [facility] HEMATOLOGY MCV 77.5 fL 80.0 - 01/31 98.0 /2014 [facility] HEMATOLOGY RBC 3.80 M/CMM 4.20 - 01/31 [place] 5.40 /2014 [facility] HEMATOLOGY WBC 11.4 K/CMM 3.7 - 10.4 01/[address] HEMATOLOGY Segs-Bands # 9.2 K/CMM 1.5 - 8.1 01/31 [facility] HEMATOLOGY Basophils 0.5 % 0.0 - 1.0 01/31 2014 [facility] HEMATOLOGY Basophils # 0.1 K/CMM 0.0 - 0.2 01/31 2014 [facility] HEMATOLOGY Eosinophils # 0.2 K/CMM 0.0 - 0.5 01/[address] HEMATOLOGY Monocytes # 1.0 K/CMM 0.0 - 0.8 01/31 [facility] HEMATOLOGY Lymphocytes # 1.0 K/CMM 1.0 - 5.5 01/31 [facility] HEMATOLOGY Lymphocytes 8.6 % 20.0 - 01/31 [facility] 40.0 [facility] HEMATOLOGY Eosinophils 1.4 % 0.0 - 4.0 01/31 2014 [facility] HEMATOLOGY Monocytes 8.6 % 2.0 - 12.0 01/31 2014 [facility] HEMATOLOGY Segs 80.9 % 45.0 - 01/31 75.0 [facility] HEMATOLOGY Microcyte 1+ None Seen 01/31 Medical [facility]* Center (01/31/15 5:42 AM) Chest wo Chest wo CT CHEST WITHOUT CONTRAST 2015-01-30 16:29:00 01/30 - [facility] contrast CT contrast CT /2014 - [facility] COMPARISON: Chest x-ray from yesterday Read by: Walter Becker Date/time: 01/31/15 06:49 Electronically Signed by: Walter Becker 01/31/15 06:58 FINAL REPORT CLINICAL INDICATION: Respiratory distress TECHNIQUE: The chest CT was performed without intravenous contrast. The chest was scanned from apices to bases. Reformatted sagittal and coronal images were obtained and reviewed. FINDINGS: MEDIASTINUM/CANDICE/VESSELS: The heart size is normal and there is a trace pericardial effusion. There are three-vessel coronary artery calcifications. Mild aortic root and thoracic aortic calcifications a re also identified. Few subcentimeter mediastinal lymph nodes. The lack of intravenous contrast limits evaluation for hilar lymphadenopathy. LUNGS/PLEURA: There are abundant bilateral lower lobe and lingular subsegmental atelectasis. A superimposed early acute infectious process at this level would be very difficult to exclude. A punctate 2 mm nodule in the right upper lobe on axial image 49 is seen. There is no pleural effusion or pneumothorax. BONES/SOFT TISSUES: No suspicious lytic or blastic lesions are present. The superficial soft tissues are unremarkable. UPPER ABDOMEN: Bilateral atrophic kidneys in keeping with a history of end- stage renal disease. There is no acute focal abnormality. CONCLUSION: 1. There are abundant bilateral lower lobe and lingular subsegmental atelectasis. A superimposed early acute infectious process at this level would be very difficult to exclude. 2. Punctate 2 mm nodule in the right upper lobe, does not require followup if there are no clinical risk factors. 3. Three-vessel coronary artery calcifications. Trace pericardial effusion. 4. Bilateral atrophic kidneys, in keeping with a history of end-stage renal disease. BACTERIAL - MRSA by PCR Negative 01/30 [facility] SEROLOGY [facility] (01/30/15 5:54 AM) [place] CHEM PANEL Procalcitonin 0.57 ng/mL 0.00 - 01/30 [facility] Lvl 0.10 [facility] HEMATOLOGY Microcyte 1+ None Seen 01/30 [facility] *ABN* [place] (01/30/15 5:54 AM) HEMATOLOGY Atypical 0.0 % <=0.0 % 01/30 [facility] Lymphs [facility] HEMATOLOGY Monocytes 4.0 % 2.0 - 12.0 01/30 [facility]2014 [facility] HEMATOLOGY Plt Morph Normal 01/30 [facility] (01/30/15 5:54 AM) [place] HEMATOLOGY Segs 86.0 % 45.0 - 01/30 [facility] 75.0 [facility] HEMATOLOGY Bands 8.0 % 0.0 - 11.0 01/30 [facility]2014 [facility] HEMATOLOGY Segs-Bands # 11.2 K/CMM 1.5 - 8.1 01/30 [facility] [place] [address] HEMATOLOGY Lymphocytes 2.0 % 20.0 - 01/30 [place] 40.0 [facility] HEMATOLOGY Lymphocytes # 0.2 K/CMM 1.0 - 5.5 01/30 [facility] HEMATOLOGY Monocytes # 0.5 K/CMM 0.0 - 0.8 01/30 [facility] [address] [place] [address] PARATHYROID Ca Ion WB 1.17 1.05 - 01/30 [facility] PROFILE mMol/L 1. [facility] PARATHYROID Ca Norm WB 1.14 1.05 - 01/30 [facility] PROFILE mMol/L 1. [facility] SPECIAL Hgb A1C 6.1 % <=5.6 % 01/30 [facility] CHEMISTRY /2014 [facility] TOXICOLOGY Everolimus 3.2 ng/mL 3.0 - 8.0 01/30 [facility] [place] [facility] TOXICOLOGY Tacrolimus null 5.0 - 15.0 01/30 [facility] [address] [place] [address] URINE AND UA WBC 6-10 /HPF None Seen 01/30 [facility] STOOL /HPF /[address] [place] [address] URINE AND UA RBC 0-2 /HPF 0 - 2 01/30 [facility] STOOL [address] [place] [address] URINE AND UA Sq Epi Few /LPF Few /LPF 01/30 [facility] /[address] [place] [address] URINE AND UA Mucus None Seen None Seen 01/30 [facility] STOOL [facility] (01/29/15 7:15 PM) [place] URINE AND UA Bacteria Occasional None Seen 01/30 [facility] STOOL /HPF /HPF [address] [place] [address] URINE AND UA Blood Trace Negative 01/30 [facility] Medical *ABN* Center (01/29/15 7:15 PM) URINE AND UA Bili Negative Negative 01/30 [facility] STOOL Medical *NA* Center (01/29/15 7:15 PM) URINE AND UA Ketones Negative Negative 01/30 [facility] Medical *NA* [place] (01/29/15 7:15 PM) URINE AND UA Glucose Negative Negative 01/30 [facility] (01/29/15 7:15 PM) [place] URINE AND UA 0.2 EU/dL 0.1 - 1.0 01/30 [facility] Urobilinogen /[address] [place] [address] URINE AND UA Protein Trace Negative 01/30 [facility] Medical *ABN* Center (8/21/15 7:15 PM) URINE AND UA pH 7.0 5.0 - 8.0 01/30 [facility] URINE AND UA Leuk Est Negative Negative 01/30 [facility] (01/29/15 7:15 PM) [place] URINE AND UA Nitrite Negative Negative 01/30 [facility] (01/29/15 7:15 PM) [place] URINE AND UA Turbidity Clear Clear 01/30 [facility] (01/29/15 7:15 PM) [place] URINE AND UA Color Yellow Yellow 01/30 [facility] *NA* [place] (01/29/15 7:15 PM) URINE AND UA Spec Grav 1.010 <=1.030 01/30 [facility]2014 [facility] CHEM PANEL Lactic Acid 1.1 mMol/L 0.5 - 2.2 01/29 [facility] [place] [facility] /2014 [facility] CHEM PANEL Procalcitonin <0.05 0.00 - 01/29 [facility] ng/mL 0.10 [facility] CHEM PANEL Lactic Acid 1.2 mmol/L 0.5 - 2.2 01/29 [facility] WB [facility] HEMATOLOGY PTT 31.8 s 22.9 - 01/29 [facility] 35.8 /2014 [facility] HEMATOLOGY PT 13.3 s 12.0 - 01/29 [facility] 14.7 [facility] HEMATOLOGY INR 1.01 0.85 - 01/29 [facility] 1.17 [facility] HEMATOLOGY Eosinophils # 0.1 K/CMM 0.0 - 0.5 01/[address] HEMATOLOGY Basophils # 0.1 K/CMM 0.0 - 0.2 01/29 [facility]2014 [facility] HEMATOLOGY Microcyte 1+ None Seen 01/29 [facility] *ABN* [place] (01/29/15 5:45 PM) HEMATOLOGY Basophils 0.6 % 0.0 - 1.0 01/29 [facility]2014 [facility] HEMATOLOGY Eosinophils 0.6 % 0.0 - 4.0 01/29 [facility]2014 [facility] Chest 1view Chest 1view EXAM: XR CHEST 1 VIEW 01/29 - [facility] DX DX - Medical This report was dictated by a Glove Pairer/Fellow. I have personally reviewed the images as Center well as the Resident's interpretation and agree with the findings. DATE: 01/29/2015 at 1808 hours Read by: Cassandra Feng MD Resident: Cassandra Feng MD Dictated Date/time: 01/29/15 18:54 Electronically Signed by: Thierry Berg MD 01/29/15 23:50 FINAL REPORT INDICATION: Cough and fever COMPARISON: Chest radiograph on 06/04/2015 TECHNIQUE: Single AP view of the chest DISCUSSION: The lungs are hypoinflated. Left basilar opacity may represent subsegmental atelectasis versus lung consolidation. No opacities are identified on the right. There may be a small left pleural effusion. The cardiomediastinal silhouette is stable. No acute fracture or destructive bone lesion is noted. The right internal jugular central venous catheter has been removed. IMPRESSION: 1. Left basilar lung opacity may represent atelectasis versus pneumonia. Two-view chest radiograph can be obtained for further evaluation. 2. Probable small left pleural effusion. REFERENCE HLA Misc Test See Report 1 12/09 Result [facility] LAB RESULTS Comment: Medical (12/09/14 3:55 PM) Reference lab Center results scanned in Care4. Results displayed in [id number] [facility]ERENCE LAB-Outside Lab Documents (Imaged) under date/time results were scanned. Report sent for scanning on 12/10/2014. REFERENCE Test Name HLA TYPING 12/09 [facility] LAB RESULTS [facility] TOXICOLOGY Tacrolimus 6.4 ng/mL 5.0 - 15.0 12/03 [facility] Lvl [facility] HEMATOLOGY Lymphocytes # 0.7 K/CMM 1.0 - 5.5 12/03 [facility] HEMATOLOGY Monocytes # 0.6 K/CMM 0.0 - 0.8 12/03 [facility] HEMATOLOGY Eosinophils # 0.1 K/CMM 0.0 - 0.5 12/03 [facility] HEMATOLOGY Lymphocytes 10.2 % 20.0 - 12/03 [facility] 40.0 [facility] HEMATOLOGY Segs 80.1 % 45.0 - 12/03 [facility] 75.0 [facility] HEMATOLOGY Eosinophils 1.6 % 0.0 - 4.0 12/03 /2014 [facility] HEMATOLOGY Basophils 0.4 % 0.0 - 1.0 12/03 [facility] HEMATOLOGY Monocytes 7.7 % 2.0 - 12.0 12/03 [facility] HEMATOLOGY Segs-Bands # 5.8 K/CMM 1.5 - 8.1 12/03 [facility] HEMATOLOGY MPV 10.0 fL 7.4 - 10.4 12/03 [facility] HEMATOLOGY Platelet 154 K/CMM 133 - 450 12/03 [facility] HEMATOLOGY MCH 27.8 pg 27.0 - 12/03 31.0 [facility] HEMATOLOGY RDW 13.6 % 11.5 - 12/03 14.5 [facility] HEMATOLOGY MCV 83.7 fL 80.0 - 12/03 98.0 [facility] HEMATOLOGY MCHC 33.3 g/dL 32.0 - 12/03 36.0 [facility] HEMATOLOGY WBC 7.2 K/CMM 3.7 - 10.4 12/03 [facility] HEMATOLOGY RBC 4.69 M/CMM 4.20 - 12/03 5.40 [facility] HEMATOLOGY Hgb 13.1 g/dL 12.0 - 12/03 16.0 [facility] HEMATOLOGY Hct 39.3 % 36.0 - 12/03 48.0 [facility] CHEM PANEL eGFR 44 12/03 1Result Comment: The eGFR is calculated using the CKD-EPI formula. In most young, healthy individuals the eGFR will be >90 mL/ min/1.73m2. The eGFR declines with age. An eGFR of 60-89 may be normal in [facility] mL/min/1. some populations, particularly the elderly, for whom the CKD-EPI formula has not been extensively validated. Use of the eGFR is not recommended in the following populations: [address] Individuals with unstable creatinine concentrations, including patients and those with serious co-morbid conditions. Patients with extremes in muscle mass or diet. The data above are obtained from the National Kidney Disease Education Program (NKDEP) which additionally recommends that when the eGFR is used in patients with extremes of body mass index for purposes of drug dosing, the eGFR should be multiplied by the estimated BMI. CHEM PANEL Calcium Lvl 9.3 mg/dL 8.5 - 10.5 12/03 [facility] CHEM PANEL AGAP 12.6 meq/L 10.0 - 12/03 [facility] 20.0 [facility] CHEM PANEL Sodium Lvl 143 meq/L 135 - 145 12/03 [facility] CHEM PANEL Potassium Lvl 3.6 meq/L 3.5 - 5.1 12/03 2014 [facility] CHEM PANEL Creatinine 1.4 mg/dL 0.5 - 1.4 12/03 [facility] [place] [facility] CHEM PANEL BUN 18 mg/dL 7 - 22 12/03 2014 [facility] CHEM PANEL Glucose Lvl 181 mg/dL 70 - 99 12/03 2Interpretive Data: Adult reference range values reflect the clinical guidelines of the [place] [employer]. [facility] CHEM PANEL Chloride Lvl 112 meq/L 95 - 109 12/03 [facility] CHEM PANEL CO2 22 meq/L 24 - 32 12/03 2014 [facility] CHEM PANEL Phosphorus 2.2 mg/dL 2.5 - 4.5 12/03 2014 [facility] CHEM PANEL Magnesium Lvl 1.8 mg/dL 1.8 - 2.4 12/03 2014 [facility] TOXICOLOGY Tacrolimus 6.3 ng/mL 5.0 - 15.0 12/03 [facility] [place] [facility] HEMATOLOGY Hct 40.9 % 36.0 - 12/03 [facility] 48.0 [facility] HEMATOLOGY Hgb 13.5 g/dL 12.0 - 12/03 [facility] 16.0 [facility] HEMATOLOGY Hct 37.9 % 36.0 - 12/02 [facility] 48.0 [facility] HEMATOLOGY Hgb 12.5 g/dL 12.0 - 12/02 [facility] . [facility] Renal Renal EXAM: US RENAL TRANSPLANT WITH DOPPLER 12/02 - [facility] transplant transplant US /2014 - [facility] This report was dictated by a Glove Pairer/Fellow. I have personally reviewed the images as Center well as the Resident's interpretation and agree with the findings. DATE: Dec 02, 2014 04:30:00 PM Read by: Lelo Xie MD Resident: eLlo Xie MD Dictated Date/time: 12/03/14 09:52 Electronically Signed by: Marcellus Booker 12/05/14 15:18 FINAL REPORT INDICATION: Post Percutaneous Kidney Transplant biopsy . Rise in baseline creatinine. 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 Concern for recurrent rejection versus BK nephropathy. COMPARISON: None. TECHNIQUE: Multiplanar grayscale, color Doppler and spectral Doppler ultrasound images of the right lower quadrant heterotopic renal transplant and urinary bladder were obtained. FINDINGS: The 11.0 x 6.6 x 5.3 cm right lower quadrant transplant is normal in echogenicity, without focal mass, calculus, or perinephric collection.There is no hydronephrosis or evidence of obstructive uropathy There is new perinephric fluid collection or evidence of hematoma. Urinary bladder is well-distended and normal in appearance. Doppler evaluation demonstrates normal color-flow perfusion. The main renal artery peak systolic velocity is 241 cm/s. The external iliac artery velocity is 203 cm/s. The renal artery: iliac artery ratio is 1.19. The main renal vein is patent. The intrarenal arcuate artery resistive indices are 0.66, 0.64, and 0.65 in the superior, mid and inferior kidney, respectively. There are no tardus parvus waveforms. IMPRESSION: 1. Right lower quadrant renal transplant, without evidence of obstructive uropathy or surrounding fluid collection. REFERENCE Test Name HLA TYPING 11/11 [facility] LAB RESULTS /2014 [facility] REFERENCE HLA Misc Test See Report 1 [facility] Comment: Medical (11/11/14 1:23 PM) Reference lab Center results scanned in Care4. Results displayed in [id number] EFERENCE LAB-Outside Lab Documents (Imaged) under date/time results were scanned. Report sent for scanning on 11/18/2014. REFERENCE Test Name HLA TYPING 10/21 [facility] LAB RESULTS /2014 [facility] REFERENCE HLA Misc Test See Report 2 10/[facility] Comment: Medical (10/21/14 1:01 PM) Reference lab Center results scanned in Care4. Results displayed in [id number] EFERENCE LAB-Outside Lab Documents (Imaged) under date/time results were scanned. Report sent for scanning on 11/10/2014. REFERENCE HLA Misc Test See Report 3 10/[facility] Comment: Medical (10/21/14 1:00 PM) Reference lab Center results scanned in Care4. Results displayed in [id number] EFERENCE LAB-Outside Lab Documents (Imaged) under date/time results were scanned. Report sent for scanning on 11/10/2014. REFERENCE Test Name HLA TYPING 10/21 [facility] LAB RESULTS /2014 [facility] SPECIAL Hgb A1C 6.7 % <=5.6 % 08/12 [place] CHEMISTRY /2014 [facility] Center REFERENCE Test Name HLA TYPING 06/02 [facility] LAB RESULTS [facility] REFERENCE HLA Misc Test See Report 8 06/02 8Result [facility] LAB RESULTS Comment: Medical (06/01/14 8:12 PM) Reference lab Center results scanned in Care4. Results displayed in [id number] EFERENCE LAB-Outside Lab Documents (Imaged) under date/time results were scanned. Report sent for scanning on 06/10/2014. CHEM PANEL Total Protein 7.3 g/dL 6.4 - 8.4 05/15 [facility] CHEM PANEL Albumin Lvl 3.9 g/dL 3.5 - 5.0 05/15 [facility] CHEM PANEL BUN 17 mg/dL 7 - 22 05/15 [facility] CHEM PANEL Creatinine 0.9 mg/dL 0.5 - 1.4 05/15 [facility] [place] [facility] CHEM PANEL Sodium Lvl 141 meq/L 135 - 145 05/15 [facility] CHEM PANEL Potassium Lvl 3.7 meq/L 3.5 - 5.1 05/15 [facility] CHEM PANEL Chloride Lvl 109 meq/L 95 - 109 05/15 [facility] CHEM PANEL Glucose Lvl 126 mg/dL 70 - 99 05/15 2Interpretive Data: Adult reference range values reflect the clinical guidelines of the [place] [employer]. [facility] CHEM PANEL AST 22 unit/L 0 - 37 05/15 [facility] CHEM PANEL ALT 39 unit/L 0 - 65 05/15 [facility] CHEM PANEL Alk Phos 115 unit/L 39 - 136 05/15 [facility] CHEM PANEL Bili Total 0.3 mg/dL 0.2 - 1.3 05/15 [facility] CHEM PANEL CO2 21 meq/L 24 - 32 05/15 [facility] CHEM PANEL Calcium Lvl 9.8 mg/dL 8.5 - 10.5 05/15 [facility] CHEM PANEL eGFR 76 05/15 1Result Comment: The eGFR is calculated using the CKD-EPI formula. In most young, healthy individuals the eGFR will be >90 mL/ min/1.73m2. The eGFR declines with age. An eGFR of 60-89 may be normal in [facility] mL/min/1.7 /2013 some populations, particularly the elderly, for whom the CKD-EPI formula has not been extensively validated. Use of the eGFR is not recommended in the following populations: [address] Individuals with unstable creatinine concentrations, including patients and those with serious co-morbid conditions. Patients with extremes in muscle mass or diet. The data above are obtained from the National Kidney Disease Education Program (NKDEP) which additionally recommends that when the eGFR is used in patients with extremes of body mass index for purposes of drug dosing, the eGFR should be multiplied by the estimated BMI. CHEM PANEL A/G Ratio 1.1 0.7 - 1.6 05/15 [facility] CHEM PANEL Globulin 3.4 g/dL 2.0 - 4.0 05/15 [facility] CHEM PANEL B/C Ratio 19 6 - 25 05/15 [facility] CHEM PANEL AGAP 14.7 meq/L 10.0 - 05/15 20.0 [facility] CHEM PANEL Phosphorus 3.6 mg/dL 2.5 - 4.5 05/15 [facility] HEMATOLOGY MPV 10.4 fL 7.4 - 10.4 05/15 [facility] HEMATOLOGY WBC 5.2 K/CMM 3.7 - 10.4 05/15 [facility] HEMATOLOGY Hct 41.4 % 36.0 - 05/15 [place] 48.0 [facility] HEMATOLOGY MCV 83.8 fL 80.0 - 05/15 98.0 [facility] HEMATOLOGY RBC 4.94 M/CMM 4.20 - 12 [place] 5.40 /2013 [facility] HEMATOLOGY Hgb 13.9 g/dL 12.0 - 05/15 [place] 16.0 [facility] HEMATOLOGY MCHC 33.4 g/dL 32.0 - 12 [place] 36.0 [facility] HEMATOLOGY RDW 13.3 % 11.5 - 12 [facility] 14. [facility] HEMATOLOGY MCH 28.0 pg 27.0 - 05/15 31.0 [facility] HEMATOLOGY Platelet 144 K/CMM 133 - 450 05/15 [facility] HEMATOLOGY Basophils 0.6 % 0.0 - 1.0 05/15 [facility] HEMATOLOGY Eosinophils 3.2 % 0.0 - 4.0 05/15 [facility] HEMATOLOGY Monocytes 9.8 % 2.0 - 12.0 05/15 [facility] HEMATOLOGY Lymphocytes 25.2 % 20.0 - 05/15 [place] 40.0 /2013 [facility] HEMATOLOGY Segs 61.2 % 45.0 - 05/15 75.0 [facility] HEMATOLOGY Eosinophils # 0.2 K/CMM 0.0 - 0.5 05/15 [facility] HEMATOLOGY Segs-Bands # 3.2 K/CMM 1.5 - 8.1 05/15 [facility] HEMATOLOGY Monocytes # 0.5 K/CMM 0.0 - 0.8 05/15 [facility] HEMATOLOGY Lymphocytes # 1.3 K/CMM 1.0 - 5.5 05/15 [facility] LIPIDS CHD Risk 4.22 3.90 - 05/15 5.80 [facility] LIPIDS VLDL 61 05/15 [facility] LIPIDS LDL 113 mg/dL <=99 mg/dL 05/15 [facility] (Calculated) [facility] LIPIDS Trig 305 mg/dL <=149 05/15 mg/dL [facility] LIPIDS HDL 54 mg/dL >=61 mg/dL 05/15 [facility] LIPIDS Chol 228 mg/dL <=199 05/15 mg/dL [facility] MOLECULAR CMV PCR Qnt Negative Negative 05/15 [facility] (05/15/14 8:08 AM) Center MOLECULAR CMV PCR Qnt null 05/15 9Interpretive Data: Analytic Quantification Range: 250-2,500,000 copies/mL (2.4-6.4 log) [facility] (log) Medical CMV DNA detected below 250 copies/mL will be resulted as "CMV DNA Center detected, less than 250 copies/mL." No target CMV DNA detected will be reported as "CMV DNA not detected." A negative result does not rule out the possibility of the presence of Cytomegalovirus. The specimen may contain CMV below the detectable limits of the assay. The human Cytomegalovirus (CMV) is a DNA virus belonging to the herpes virus family. The CMV Virus assay targets a 105 base pair region of the CMV virus genome. This assay utilizes analyte specific (ASR) reagents for Real-Time nucleic acid amplification (PCR). Results should not be used as the sole basis for clinical diagnosis, treatment or patient management. Performance characteristics have been verified by the Molecular Diagnostic [facility] within [facility]. The Molecular Diagnostic Laboratory is authorized under the Clinical Laboratory Improve ment Amendments of 1988 (CLIA-88) to perform high complexity testing. MOLECULAR Source CMV Blood 05/15 [facility] DIAGNOSTIC PCR Qnt [facility] (05/15/14 8:08 AM) [place] MOLECULAR BK Virus PCR 4.1 log 05/15 11Interpretive Data: Analytic Quantification Range: 100-400,000,000 copies/mL (2.0-8.6 log) [facility] DIAGNOSTIC Qnt (log) Medical BK DNA detected below 100 copies/mL will be resulted as "BK DNA Center detected, less than 100 copies/mL." No target BK DNA detected will be reported as "BK DNA not detected. " A negative result does not rule out the possibility of the presence of the BK virus. The specimen may contain BK below the detectable limits of the assay. The BK Virus is a DNA virus belonging to the polyomaviruses. The BK Virus assay targets a 274 base pair region of the BK virus genome. This assay utilizes analyte specific (ASR) reagents for Real-Time nucleic acid amplification (PCR). Results should not be used as the sole basis for clinical diagnosis, treatment or patient management. Performance characteristics have been verified by the [facility] within [facility]. The Molecular Diagnostic Laboratory is authorized under the Clinical Laboratory Improve ment Amendments of 1988 (CLIA-88) to perform high complexity testing. MOLECULAR Source BK Plasma 05/15 [place] DIAGNOSTIC Virus PCR Qnt [facility] MOLECULAR BK Virus PCR [id number] 05/15 10Result [facility] DIAGNOSTIC Qnt copies/mL /2013 Comment: Medical "Significant Center Findings called to Hernandez [email or web address]_at 05/19/2014 08:19 by bf. Read Back OK." PARATHYROID Ca Ion WB 1.23 1.05 - 05/15 [facility] PROFILE mMol/L 1. [facility] PARATHYROID Ca Norm WB 1.20 1. - 05/15 [facility] PROFILE mMol/L 1. [facility] SPECIAL Hgb A1C 7.2 % <=5.6 % 05/15 [facility] CHEMISTRY [facility] TOXICOLOGY Teriflunomide [id number] 05/15 3Result Comment: [facility] Lvl ng/mL Mean steady state plasma concentrations of Medical teriflunomide from patients on daily dosages of 5, Center 10, or 25 mg of leflunomide were 8,800, 18,000 and 63,000 ng/mL, respectively. It is recommended that women of childbearing potential who discontinue leflunomide therapy undergo the cholestyramine drug elimination procedure. This procedure includes verification that plasma levels of teriflunomide are less than 20 ng/mL by two separate tests at least 14 days apart. Test Performed at: [employer] [facility], [address] [place] [id number] Analia Slater MD, FCAP TOXICOLOGY Tacrolimus 11.0 ng/mL 5.0 - 15.0 05/15 [facility] Lvl [facility] TOXICOLOGY [employer] 134 ATP 05/15 4Interpretive Data: Reference Range: [facility] ng/mL Low Immune Cell Response <=225 ATP Level ng/mL [facility] Moderate Immune Cell Response 226-524 ATP Level ng/mL [place] Strong Immune Cell Response >=525 ATP Level ng/mL Note: This is a qualitative assay. Therefore the result does not directly quantify the level of immunosuppression. These results should be used in conjunction with clinical presentation, medical history, and other clinical indicators when establishing the immune status of a patient. This test has been cleared or payton roved for diagnostic use by the U.S. Food and Drug Administration. [employer] (R) is a trademark of [employer]. URINE AND UA <=1.0 0.1 - 1.0 05/15 [facility] STOOL Urobilinogen mg/dL /2013 [facility] URINE AND UA Bacteria Occasional None Seen 05/15 [facility] STOOL /HPF /HPF /2013 [facility] URINE AND UA RBC null 0 - 2 05/15 [facility] STOOL [facility] URINE AND UA Mucus Few /LPF None Seen 05/15 [facility] [place] STOOL /LPF [facility] URINE AND UA WBC 4 /HPF 0 - 5 05/15 [facility] URINE AND UA Sq Epi Few /LPF Few /LPF 05/15 [facility] URINE AND UA Leuk Est Negative Negative 05/15 [facility] (05/15/14 8:08 AM) [place] URINE AND UA Ketones Negative Negative 05/15 [facility] mg/dL mg/dL [facility] URINE AND UA Blood Negative Negative 05/15 [facility] (05/15/14 8:08 AM) [place] URINE AND UA Glucose 50 mg/dL Negative 05/15 [facility] mg/dL [facility] URINE AND UA Bili Negative Negative 05/15 [facility] *NA* [place] (05/15/14 8:08 AM) URINE AND UA Color Yellow Yellow 05/15 [facility] [place] (05/15/14 8:08 AM) URINE AND UA Spec Grav 1.012 <=1.030 05/15 [facility] URINE AND UA Turbidity Clear Clear 05/15 [facility] (05/15/14 8:08 AM) [place] URINE AND UA Nitrite Negative Negative 05/15 [facility] (05/15/14 8:08 AM) [place] URINE AND UA pH 5.5 5.0 - 8.0 05/15 [facility] URINE AND UA Protein Negative Negative 05/15 [facility] mg/dL mg/dL [facility] URINE CHEM U Creatinine 120.0 05/15 5Interpretive [facility] mg/dL Data: No Medical established Center reference ranges. URINE CHEM U Prot/Creat 0.1 05/15 [facility] URINE CHEM U Protein 15.6 mg/dL 05/15 7Interpretive Data: No Medical established Center reference ranges. URINE CHEM U Microalb 6.6 mg/L 05/15 [facility] URINE CHEM U Creatinine 120.0 05/15 6Interpretive [facility] mg/dL Data: No Medical [facility] Center reference ranges. URINE CHEM U Alb/Crea 5.5 mcg/mg <=30.0 05/15 [facility] creat mcg/mg /2013 Medical cre Center REFERENCE Test Name HLA TYPING 01/15 [place] LAB RESULTS /2013 Medical Center REFERENCE HLA Misc Test See Report 1 01/15 1Result [facility] LAB RESULTS /2013 Comment: Medical (01/15/14 5:16 PM) Reference lab Center results scanned in Care4. Results displayed in [id number] [facility]ENCE LAB-Outside Lab Documents (Imaged) under date/time results were scanned. Report sent for scanning on 01/27/2014. Pelvis Pelvis INDICATION: Pain. A postmenopausal. 12/04 [facility] Transvagina Transvaginal /2013 [facility] US US PROCEDURE: The pelvis was scanned with a transvaginal transducer using real time imaging and color Doppler imaging. Read by: Alvarado Bear MD Dictated Date/time: 12/04/13 11:08 Electronically Signed by: Alvarado Bear MD 12/04/13 11:11 FINAL REPORT FINDINGS: The uterus is 7.9 cm in span x 4.7 cm transversely x 3.2 cm in AP dimension. The endometrium is 4.7 mm in maximum thickness and normal in appearance. There are no myometrial masses or calcifi cations. Small nabothian cysts are present around the endocervical canal. The right ovary was not identified. The left ovary is 2.2 x 2.8 x 2.5 cm in size. It has a dominant follicle or small cyst which is 2.8 mm in maximum dimension. Perfusion is normal. No free pelvic fluid is present. IMPRESSION: 1. Small simple cyst or dominant follicle in the left ovary. The left ovary is otherwise unremarkable. Note that the right ovary was not seen. The uterus is unremarkable. Hip min 2 Hip min 2 EXAM: XR RIGHT HIP 2 VIEWS AND PELVIS 1 VIEW 09/24 - [facility] views views /2013 - [facility] This report was dictated by a Glove Pairer/Fellow. I have personally reviewed the images as well as the Resident's interpretation and agree with the findings. DATE: 2013-09-24 08:09:00 Read by: Veronica Jalloh Resident: Veronica Jalloh Dictated Date/time: 09/24/13 08:54 Electronically Signed by: Thierry Berg MD 09/25/13 07:52 FINAL REPORT INDICATION: 719.45 Pain in Joint Involving Pelvic Region and Thigh. COMPARISON: None available TECHNIQUE: AP and frog-leg lateral radiographs of the right hip and a single AP radiograph of the pelvis FINDINGS: No fracture, dislocation or other acute bony abnormality is identified. There is no evidence of femoral head avascular necrosis. Hip joint spaces are preserved. No soft tissue abnormality is identified. Surgical clips are seen within the right lower pelvis in keeping with prior renal transplant. IMPRESSION: No bone abnormality identified. Pelvis with Pelvis with EXAM: US PELVIS TRANSABDOMINAL 09/22 - [facility] Pelvis Pelvis /2013 - Medical Transvagina Transvaginal EXAM: US PELVIS TRANSVAGINAL This report was dictated by a Glove Pairer/Fellow. I have personally reviewed the images as Center l US US well as the Resident's interpretation and agree with the findings. Read by: Walter Mack Resident: Walter Mack Dictated Date/time: 09/22/13 13:46 DATE: 09/22/2013 at 1102. Electronically Signed by: Radha Sandoval MD 09/22/13 16:37 FINAL REPORT INDICATION: Persistent right abdominal pain. ADDITIONAL INFORMATION: Status post renal transplant 05/23/2013. COMPARISON: None. TECHNIQUE: Multiplanar grayscale and color Doppler ultrasound images of the pelvis were obtained transabdominally through a distended urinary bladder followed by transvaginal examination postvoid. FINDINGS: Limited visualization of the urinary bladder is unremarkable. The uterus is anteverted and measures 5.4 x 2.5 x 3.8 cm. Uterine echogenicity is heterogenous. A small posterior fibroid is identified measuring 7.2 x 5.3 x 7.5 mm. Nabothian cysts are identified at the cervix. Endometrial thickness is 2.4 mm. No focal endometrial lesions. The right ovary was not identified. The left ovary is 1.7 x 1.2 x 1.5 cm. No adnexal abnormalities. A small amount of free fluid is identified, likely physiologic in origin. IMPRESSION: No acute abnormality identified. Abdomen RUQ Abdomen RUQ EXAM: US ABDOMEN RIGHT UPPER QUADRANT 09/22 - [facility] US US /2013 - Medical This report was dictated by a Glove Pairer/Fellow. I have personally reviewed the images as Center well as the Resident's interpretation and agree with the findings. DATE: 09/22/2013 at 1031. Read by: Walter Mack Resident: Walter Mack Dictated Date/time: 09/22/13 13:37 Electronically Signed by: Radha Sandoval MD 09/22/13 16:37 FINAL REPORT INDICATION: Persistent right abdominal pain. ADDITIONAL INFORMATION: Status post renal transplant 05/23/2013. COMPARISON: Renal transplant ultrasound 07/31/2013. TECHNIQUE: Multiplanar grayscale and color Doppler ultrasound images of the RUQ abdomen were obtained. FINDINGS: Liver demonstrates normal echogenicity without masses. Right hepatic lobe measures cm at the midclavicular line. Main portal vein is with hepatopetal flow. No gallstones or biliary sludge is seen within the gallbladder lumen. A 4.6 mm nonmobile, non shadowing polyp is noted projecting into the gallbladder lumen. Gallbladder wall thickness is 1.3 mm. No sonographic Edward's sign or pericholecystic fluid. Visualized portions of the intrahepatic biliary tree are of normal caliber. Common duct is 3.5 mm. Pancreas is unremarkable where visualized. The spleen is unremarkable and measures 11.9 x 3.6 x 4.1. The right kidney is not well visualized. No free fluid identified. IMPRESSION: 1. No sonographic evidence of cholelithiasis or cholecystitis. 2. Small single polyp projecting into the gallbladder lumen. Renal Renal EXAM: US RENAL TRANSPLANT WITH DOPPLER 09/22 - [facility] transplant transplant - [facility] US This report was dictated by a Glove Pairer/Fellow. I have personally reviewed the images as Center well as the Resident's interpretation and agree with the findings. DATE: 09/22/2013 at 10:45. Read by: Walter Mack Resident: Walter Mack Dictated Date/time: 09/22/13 13:29 Electronically Signed by: Radha Sandoval MD 09/22/13 16:37 FINAL REPORT INDICATION: Persistent right abdominal pain. ADDITIONAL INFORMATION: Status post renal transplant on 05/23/2013. COMPARISON: Renal transplant ultrasound 07/31/2013. TECHNIQUE: Multiplanar grayscale, color Doppler and spectral Doppler ultrasound images of the right lower quadrant heterotopic renal transplant and urinary bladder were obtained. FINDINGS: A 11.6 x 5.1 x 5.9 cm right lower quadrant transplant is normal in echogenicity with no focal mass, calculus, or perinephric collection. No hydronephrosis is seen. Urinary bladder is within normal limits. Doppler evaluation demonstrates normal color-flow perfusion. Main renal artery velocity is 60.8 cm/sec. Peak systolic velocity at the arterial anastomosis is 198 cm/sec. Main renal vein and anastomosis are patent. Intrarenal resistive indices are 0. 63, 0. 62, and 0. 60 in the superior, mid and inferior kidney, respectively. IMPRESSION: No significant abnormality identified. REFERENCE HLA Misc Test See Report 1 09/01 1Result [facility] LAB RESULTS Comment: Medical (09/01/13 8:00 AM) Reference lab Center results scanned in Care4. Results displayed in [id number] EFERENCE LAB-Outside Lab Documents (Imaged) under date/time results were scanned. Report sent for scanning on 09/05/2013 18:18. REFERENCE Test Name HLA TYPING 09/01 [facility] LAB RESULTS [facility] BLOOD BANK Antibody Scrn Negative 07/31 [facility] RESULTS [facility] (07/31/2013 10:00:00 [facility] [place] BLOOD BANK ABO/Rh O POS 07/31 [facility] RESULTS [facility] Renal Renal EXAM: US RENAL TRANSPLANT WITH DOPPLER 07/31 - [facility] transplant transplant - [facility] This report was dictated by a Glove Pairer/Fellow. I have personally reviewed the images as Center well as the Resident's interpretation and agree with the findings. DATE: 07/31/2013 at 1457 hours. Read by: Ceasar Miller Resident: Ceasar Miller Dictated Date/time: 07/31/13 16:13 Electronically Signed by: Alvarado Bear MD 07/31/13 16:44 FINAL REPORT INDICATION: Hematuria. 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 COMPARISON: Renal transplant ultrasound 06/30/2013 at 1106 hours. TECHNIQUE: Multiplanar grayscale, color Doppler and spectral Doppler ultrasound images of the right lower quadrant heterotopic renal transplant and urinary bladder were obtained. FINDINGS: A 11.4 x 4.9 x 5.1 cm right lower quadrant transplant is normal in echogenicity with no focal mass, calculus, or perinephric collection. Some pelvic pelvicalyceal without hydronephrosis is seen. Urinary bladder is normal. Doppler evaluation demonstrates normal color-flow perfusion. Main renal artery velocity is 95.8 cm/s. RA:IA ratio is 0.7. At the anastomosis, velocity is measured at 328 cm/s. Main renal vein is patent. Intrarenal resistive indices are 0.60, 0.57, and 0.65 in the superior, mid and inferior kidney, respectively. IMPRESSION: 1. Interval decrease in the main renal artery velocity compared to the prior scan, with normal RA:IA ratio and normal intrarenal resistive indices. 2. Elevated velocity at the renal artery anastomosis could be secondary to technical factors, recommend correlation with creatinine. If further evaluation is needed, MRA without contrast can be obtained. REFERENCE HLA Misc Test See Report 1 07/31 1Result [facility] LAB RESULTS Comment: [facility] (07/31/2013 08:00:00 [facility] Reference lab Center results scanned in Care4. Results displayed in [id number] EFERENCE LAB-Outside Lab Documents (Imaged) under date/time results were scanned. Report sent for scanning on 08/06/2013 16:10. REFERENCE Test Name HLA TYPING 07/31 [facility] LAB RESULTS [facility] CHEM PANEL Uric Acid 5.1 mg/dL 2.5 - 7.0 07/28 [facility] CHEM PANEL Phosphorus 3.0 mg/dL 2.5 - 4.5 07/28 [facility] CHEM PANEL LACTATE 179 unit/L 98 - 192 07/28 [facility] DEHYDROGENASE [facility] CHEM PANEL eGFR 67 07/28 1Result Comment: The eGFR is calculated using the CKD-EPI formula. In most young, healthy individuals the eGFR will be >90 mL/ min/1.73m2. The eGFR declines with age. An eGFR of 60-89 may be normal in [facility] mL/min/1. some populations, particularly the elderly, for whom the CKD-EPI formula has not been extensively validated. Use of the eGFR is not recommended in the following populations: Medical 2 Center Individuals with unstable creatinine concentrations, including patients and those with serious co-morbid conditions. Patients with extremes in muscle mass or diet. The data above are obtained from the National Kidney Disease Education Program (NKDEP) which additionally recommends that when the eGFR is used in patients with extremes of body mass index for purposes of drug dosing, the eGFR should be multiplied by the estimated BMI. CHEM PANEL Creatinine 1.0 mg/dL 0.5 - 1.4 07/28 [facility] CHEM PANEL Potassium Lvl 3.8 meq/L 3.5 - 5.1 07/28 [facility] CHEM PANEL Sodium Lvl 142 meq/L 135 - 145 07/28 [facility] CHEM PANEL Glucose Lvl 99 mg/dL 70 - 99 07/28 2Interpretive Data: Adult reference range values reflect the clinical guidelines of the [place] [employer]. Medical Center CHEM PANEL BUN 29 mg/dL 7 - 22 07/28 [facility] CHEM PANEL ASPARTATE 11 unit/L 0 - 37 07/28 [facility] CHEM PANEL CO2 25 meq/L 24 - 32 07/28 [facility] CHEM PANEL Chloride Lvl 108 meq/L 95 - 109 07/28 [facility] CHEM PANEL Calcium Lvl 10.1 mg/dL 8.5 - 10.5 07/28 [facility] CHEM PANEL Total Protein 6.7 g/dL 6.4 - 8.4 07/28 [facility] CHEM PANEL Bili Total 0.5 mg/dL 0.2 - 1.3 07/28 [facility] CHEM PANEL ALANINE 21 unit/L 0 - 65 07/28 [facility] CHEM PANEL Alk Phos 92 unit/L 39 - 136 07/28 [facility] CHEM PANEL Albumin Lvl 4.1 g/dL 3.5 - 5.0 07/28 [facility] CHEM PANEL A/G Ratio 1.6 0.7 - 1.6 07/28 [facility] CHEM PANEL B/C Ratio 29 6 - 25 07/28 [facility] CHEM PANEL AGAP 12.8 meq/L 10.0 - 07/28 [facility] CHEM PANEL Globulin 2.6 g/dL 2.0 - 4.0 07/28 [facility] HEMATOLOGY MPV 10.6 fL 7.4 - 10.4 07/28 [facility] HEMATOLOGY Platelet 179 K/CMM 133 - 450 07/28 [facility] HEMATOLOGY Hgb 12.5 g/dL 12.0 - 07/28 16. [facility] HEMATOLOGY RDW 14.9 % 11.5 - 07/28 14.5 /2013 [facility] HEMATOLOGY MCHC 32.9 g/dL 32.0 - 07/28 36.0 /2013 [facility] HEMATOLOGY MCV 90.5 fL 81.0 - 07/28 99.0 /2013 [facility] HEMATOLOGY Hct 38.0 % 36.0 - 07/28 48.0 /2013 [facility] HEMATOLOGY MCH 29.8 pg 27.0 - 07/28 31.0 [facility] HEMATOLOGY RBC X 10x6 4.20 M/CMM 4.20 - 07/28 5.40 /2013 [facility] HEMATOLOGY WBC X 10x3 6.1 K/CMM 3.7 - 10.4 07/28 [facility] HEMATOLOGY Monocytes 4.0 % 2.0 - 12.0 07/28 [facility] HEMATOLOGY RBC Morph Normal 07/28 [facility] (07/28/2013 07:10:00 [facility]) [place] HEMATOLOGY Plt Morph Normal 07/28 [facility] (07/28/2013 07:10:00 [facility] [place] HEMATOLOGY Segs 73.7 % 45.0 - 07/28 75.0 /2013 [facility] HEMATOLOGY Lymphocytes 20.0 % 20.0 - 07/28 40.0 [facility] HEMATOLOGY Monocytes # 0.2 K/CMM 0.0 - 0.8 07/28 [facility] HEMATOLOGY Eosinophils # 0.1 K/CMM 0.0 - 0.5 07/28 [facility] HEMATOLOGY Lymphocytes # 1.2 K/CMM 1.0 - 5.5 07/28 [facility] HEMATOLOGY Eosinophils 1.7 % 0.0 - 4.0 07/28 [facility] [facility] HEMATOLOGY Basophils 0.6 % 0.0 - 1.0 07/28 [facility] HEMATOLOGY Segs-Bands # 4.5 K/CMM 1.5 - 8.1 07/28 [facility] LIPIDS Trig 219 mg/dL <=149 07/28 [facility] mg/dL [facility] LIPIDS Chol 218 mg/dL <=199 07/28 mg/dL [facility] MOLECULAR Source CMV Blood 07/28 [facility] DIAGNOSTIC PCR Qnt /2013 Medical *NA* Center (07/28/2013 07:10:00 [facility]/[place]) MOLECULAR CMV PCR Qnt null 07/28 6Interpretive Data: Analytic Quantification Range: 250-2,500,000 copies/mL (2.4-6.4 log) [facility] DIAGNOSTIC (log) Medical CMV DNA detected below 250 copies/mL will be resulted as "CMV DNA Center detected, less than 250 copies/mL." No target CMV DNA detected will be reported as "CMV DNA not detected." A negative result does not rule out the possibility of the presence of Cytomegalovirus. The specimen may contain CMV below the detectable limits of the assay. The human Cytomegalovirus (CMV) is a DNA virus belonging to the herpes virus family. The CMV Virus assay targets a 105 base pair region of the CMV virus genome. This assay utilizes analyte specific (ASR) reagents for Real-Time nucleic acid amplification (PCR). Results should not be used as the sole basis for clinical diagnosis, treatment or patient management. Performance characteristics have been verified by the Molecular Diagnostic Laboratory within [facility]. The Molecular Diagnostic Laboratory is authorized under the Clinical Laboratory Improve ment Amendments of 1988 (CLIA-88) to perform high complexity testing. MOLECULAR CMV PCR Qnt Negative Negative 07/28 [facility] DIAGNOSTIC /2013 [facility] (07/28/2013 07:10:00 [facility]/[place]) [place] MOLECULAR BK Virus PCR null 07/28 7Interpretive Data: Analytic Quantification Range: 100-400,000,000 copies/mL (2.0-8.6 log) [facility] Qnt (log) Medical BK DNA detected below 100 copies/mL will be resulted as "BK DNA Center detected, less than 100 copies/mL." No target BK DNA detected will be reported as "BK DNA not detected. " A negative result does not rule out the possibility of the presence of the BK virus. The specimen may contain BK below the detectable limits of the assay. The BK Virus is a DNA virus belonging to the polyomaviruses. The BK Virus assay targets a 274 base pair region of the BK virus genome. This assay utilizes analyte specific (ASR) reagents for Real-Time nucleic acid amplification (PCR). Results should not be used as the sole basis for clinical diagnosis, treatment or patient management. Performance characteristics have been verified by the Molecular Diagnostic [facility] within [facility]. The Molecular Diagnostic Laboratory is authorized under the Clinical Laboratory Improve ment Amendments of 1988 (CLIA-88) to perform high complexity testing. MOLECULAR Source BK Plasma 07/28 [facility] DIAGNOSTIC Virus PCR Qnt [facility] MOLECULAR BK Virus PCR Negative Negative 07/28 [facility] DIAGNOSTIC Qnt [facility] (07/28/2013 07:10:00 [facility]) [place] TOXICOLOGY Tacrolimus 8.3 ng/mL 5.0 - 15.0 07/28 [facility] Lvl [facility] TOXICOLOGY Immune Cell 519 07/28 3Result Comment: Reference Range [facility] Fun < ws=279 Low immune cell response [facility] [phone] Moderate immune cell response [place] > cw=692 High immune cell response Test Performed at: [facility] [address] [id number] TIKI DUARTE M.D. URINE AND UA <=1.0 0.1 - 1.0 07/28 [facility] Urobilinogen mg/dL [facility] URINE AND UA Color Yellow Yellow 07/28 [facility] Medical *NA* [place] (07/28/2013 07:10:00 [facility]) URINE AND UA WBC 2 /HPF 0 - 5 07/28 [facility] URINE AND UA Mucus Few /LPF None Seen 07/28 [facility] /LPF [facility] URINE AND UA RBC null 0 - 2 07/28 [facility] URINE AND UA Leuk Est Negative Negative 07/28 [facility] (07/28/2013 07:10:00 [facility]) [place] URINE AND UA Sq Epi Occasional Few /LPF 07/28 [facility] /LPF [facility] URINE AND UA Ketones Negative Negative 07/28 [facility] mg/dL mg/dL [facility] URINE AND UA Glucose 30 mg/dL Negative 07/28 [facility] mg/dL [facility] URINE AND UA Bili Negative Negative 07/28 [facility] Medical *NA* [place] (07/28/2013 07:10:00 [facility]) URINE AND UA Blood Negative Negative 07/28 [facility] (07/28/2013 07:10:00 [facility]) [place] URINE AND UA Spec Grav 1.016 <=1.030 07/28 [facility] URINE AND UA Turbidity Clear Clear 07/28 [facility] (07/28/2013 07:10:00 [facility]) [place] URINE AND UA pH 5.5 5.0 - 8.0 07/28 [facility] URINE AND UA Protein Negative Negative 07/28 [facility] STOOL mg/dL mg/dL [facility] URINE AND UA Nitrite Negative Negative 07/28 [facility] (07/28/2013 07:10:00 [facility]) [place] URINE CHEM U Prot/Creat 0.2 07/28 [facility] URINE CHEM U Creatinine 118.7 07/28 4Interpretive [facility] mg/dL Data: No [facility] reference ranges. URINE CHEM U Protein 18.6 mg/dL 07/28 5Interpretive Data: No [facility] reference ranges. CHEM PANEL A/G Ratio 1.5 0.7 - 1.6 07/14 [facility] CHEM PANEL AGAP 13.0 meq/L 10.0 - 07/14 [facility] 20.0 [facility] CHEM PANEL Globulin 2.6 g/dL 2.0 - 4.0 07/14 [facility] CHEM PANEL B/C Ratio 19 6 - 25 07/14 [facility] CHEM PANEL eGFR 104 07/14 1Result Comment: The eGFR is calculated using the CKD-EPI formula. In most young, healthy individuals the eGFR will be > 90 mL/min/1.73m2. The eGFR declines with age. An eGFR of 60-89 may be normal in [facility] mL/min/1.7 /2013 some populations, particularly the elderly, for whom the CKD-EPI formula has not been extensively validated. Use of the eGFR is not recommended in the following populations: [address] Individuals with unstable creatinine concentrations, including patients and those with serious co-morbid conditions. Patients with extremes in muscle mass or diet. The data above are obtained from the National Kidney Disease Education Program (NKDEP) which additionally recommends that when the eGFR is used in patients with extremes of body mass index for purposes of drug dosing, the eGFR should be multiplied by the estimated BMI. CHEM PANEL Total Protein 6.5 g/dL 6.4 - 8.4 07/14 [facility] CHEM PANEL Calcium Lvl 9.6 mg/dL 8.5 - 10.5 07/14 [facility] CHEM PANEL Bili Total 0.3 mg/dL 0.2 - 1.3 07/14 [facility] CHEM PANEL ASPARTATE 7 unit/L 0 - 37 07/14 TRANSAMINASE [facility] CHEM PANEL ALANINE 17 unit/L 0 - 65 07/14 [facility] AMINOTRANSFER [facility] CHEM PANEL Albumin Lvl 3.9 g/dL 3.5 - 5.0 07/14 [facility] CHEM PANEL Potassium Lvl 4.0 meq/L 3.5 - 5.1 07/14 [facility] CHEM PANEL Sodium Lvl 143 meq/L 135 - 145 07/14 [facility] CHEM PANEL Chloride Lvl 110 meq/L 95 - 109 07/14 [facility] CHEM PANEL CO2 24 meq/L 24 - 32 07/14 [facility] CHEM PANEL Alk Phos 98 unit/L 39 - 136 07/14 [facility] CHEM PANEL BUN 13 mg/dL 7 - 22 07/14 [facility] CHEM PANEL Creatinine 0.7 mg/dL 0.5 - 1.4 07/14 l [facility] CHEM PANEL Glucose Lvl 116 mg/dL 70 - 99 07/14 4Interpretive Data: Adult reference range values reflect the clinical guidelines of the [place] [employer]. [facility] CHEM PANEL Uric Acid 3.7 mg/dL 2.5 - 7.0 07/14 [facility] CHEM PANEL Phosphorus 2.7 mg/dL 2.5 - 4.5 07/14 [facility] CHEM PANEL LACTATE 175 unit/L 98 - 192 07/14 [facility] HEMATOLOGY RDW 15.3 % 11.5 - 02 14.5 [facility] HEMATOLOGY MPV 10.2 fL 7.4 - 10.4 07/14 [facility] HEMATOLOGY Platelet 158 K/CMM 133 - 450 07/14 [facility] HEMATOLOGY MCHC 33.6 g/dL 32.0 - 02 36.0 [facility] HEMATOLOGY MCH 30.1 pg 27.0 - 07/14 31.0 [facility] HEMATOLOGY Hgb 12.7 g/dL 12.0 - 02/03 [facility] 16.0 /2013 [facility] HEMATOLOGY MCV 89.6 fL 81.0 - 07/14 99.0 /2013 [facility] HEMATOLOGY Hct 37.7 % 36.0 - 07/14 48.0 /2013 [facility] HEMATOLOGY WBC X 10x3 6.9 K/CMM 3.7 - 10.4 07/14 [facility] HEMATOLOGY RBC X 10x6 4.21 M/CMM 4.20 - 02 [place] 5.40 /2013 [facility] HEMATOLOGY Monocytes 4.0 % 2.0 - 12.0 07/14 [facility] HEMATOLOGY Basophils 0.5 % 0.0 - 1.0 07/14 [facility] HEMATOLOGY Eosinophils 1.6 % 0.0 - 4.0 07/14 [facility] HEMATOLOGY Lymphocytes # 1.4 K/CMM 1.0 - 5.5 07/14 [facility] HEMATOLOGY Segs-Bands # 5.0 K/CMM 1.5 - 8.1 07/14 [facility] HEMATOLOGY Lymphocytes 20.7 % 20.0 - 07/14 [facility] 40.0 /2013 [facility] HEMATOLOGY Segs 73.2 % 45.0 - 07/14 [facility] 75.0 /2013 [facility] HEMATOLOGY Monocytes # 0.3 K/CMM 0.0 - 0.8 07/14 [facility] HEMATOLOGY Eosinophils # 0.1 K/CMM 0.0 - 0.5 07/14 [facility] LIPIDS Chol 187 mg/dL <=199 07/14 [facility] mg/dL [facility] LIPIDS Trig 235 mg/dL <=149 07/14 [facility] mg/dL [facility] MOLECULAR BK Virus PCR null 07/14 18Interpretive Data: Analytic Quantification Range: 100-400,000,000 copies/mL (2.0-8.6 log) [facility] DIAGNOSTIC Qnt (log) Medical BK DNA detected below 100 copies/mL will be resulted as "BK DNA Center detected, less than 100 copies/mL." No target BK DNA detected will be reported as "BK DNA not detected. " A negative result does not rule out the possibility of the presence of the BK virus. The specimen may contain BK below the detectable limits of the assay. The BK Virus is a DNA virus belonging to the polyomaviruses. The BK Virus assay targets a 274 base pair region of the BK virus genome. This assay utilizes analyte specific (ASR) reagents for Real-Time nucleic acid amplification (PCR). Results should not be used as the sole basis for clinical diagnosis, treatment or patient management. Performance characteristics have been verified by the Molecular Diagnostic [facility] within [facility]. The Molecular Diagnostic Laboratory is authorized under the Clinical Laboratory Improve ment Amendments of 1988 (CLIA-88) to perform high complexity testing. MOLECULAR Source BK Plasma 07/14 [facility] DIAGNOSTIC Virus PCR Qnt /2013 [facility] MOLECULAR BK Virus PCR Negative Negative 07/14 [facility] DIAGNOSTIC Qnt [facility] (07/14/2013 07:15:00 [facility]) [place] MOLECULAR CMV PCR Qnt null 07/14 17Interpretive Data: Analytic Quantification Range: 250-2,500,000 copies/mL (2.4-6.4 log) [facility] (log) [facility] CMV DNA detected below 250 copies/mL will be resulted as "CMV DNA Center detected, less than 250 copies/mL." No target CMV DNA detected will be reported as "CMV DNA not detected." A negative result does not rule out the possibility of the presence of Cytomegalovirus. The specimen may contain CMV below the detectable limits of the assay. The human Cytomegalovirus (CMV) is a DNA virus belonging to the herpes virus family. The CMV Virus assay targets a 105 base pair region of the CMV virus genome. This assay utilizes analyte specific (ASR) reagents for Real-Time nucleic acid amplification (PCR). Results should not be used as the sole basis for clinical diagnosis, treatment or patient management. Performance characteristics have been verified by the [facility] within [facility]. The Molecular Diagnostic Laboratory is authorized under the Clinical Laboratory Improve ment Amendments of 1988 (CLIA-88) to perform high complexity testing. MOLECULAR CMV PCR Qnt Negative Negative 07/14 [facility] DIAGNOSTIC /2013 [facility] (07/14/2013 07:15:00 [facility]) [place] MOLECULAR Source CMV Blood 07/14 [facility] DIAGNOSTIC PCR Qnt Medical *NA* Center (07/14/2013 07:15:00 [facility]) TOXICOLOGY Immune Cell 373 07/14 7Result Comment: Reference Range [facility] Fun < fa=019 Low immune cell response [facility] [phone] Moderate immune cell response Center > hi=170 High immune cell response Test Performed at: [facility] [place] [address] [place] [id number] TIKI DUARTE M.D. TOXICOLOGY Tacrolimus 9.7 ng/mL 5.0 - 15.0 07/14 [facility] Lvl [facility] URINE AND UA <=1.0 0.1 - 1.0 07/14 [facility] Urobilinogen mg/dL [facility] URINE AND UA Sq Epi None Seen 07/14 [facility] URINE AND UA RBC null 0 - 2 07/14 [facility] URINE AND UA Turbidity Clear Clear 07/14 [facility] (07/14/2013 07:15:00 [facility] [place] URINE AND UA Spec Grav 1.006 <=1.030 07/14 [facility] URINE AND UA Color Light Yellow Yellow 07/14 [facility] Medical *NA* [facility] URINE AND UA Bili Negative Negative 07/14 [facility] Medical *NA* Center (07/14/2013 07:15:00 [facility]) URINE AND UA Ketones Negative Negative 07/14 [facility] mg/dL mg/dL [facility] URINE AND UA pH 6.5 5.0 - 8.0 07/14 [facility] URINE AND UA Protein Negative Negative 07/14 [facility] mg/dL mg/dL [facility] URINE AND UA Glucose 200 mg/dL Negative 07/14 [facility] mg/dL [facility] URINE AND UA Leuk Est Negative Negative 07/14 [facility] (07/14/2013 07:15:00 [facility] [place] URINE AND UA Nitrite Negative Negative 07/14 [facility] [place] URINE AND UA Blood Negative Negative 07/14 [facility] (07/14/2013 07:15:00 [facility] [place] URINE AND UA WBC null 0 - 5 07/14 [facility] URINE CHEM U Prot/Creat 0.4 07/14 [facility] Medical [place] URINE CHEM U Protein 9.9 mg/dL 07/14 13Interpretiv e Data: No Medical established Center reference ranges. URINE CHEM U Creatinine 27.4 mg/dL 07/14 10Interpretiv e Data: No [facility] Center reference ranges. REFERENCE Test Name HLA TYPING 07/07 [facility] LAB RESULTS [facility] REFERENCE HLA Misc Test See Report 16 07/07 16Result [facility] LAB RESULTS Comment: Medical (07/07/2013 08:00:00 [facility]) Reference lab Center results scanned in [facility]. Results displayed in [id number]-Outside Lab Documents (Imaged) under date/time results were scanned. Report sent for scanning on 07/09/2013 13:12. CHEM PANEL LACTATE 190 unit/L 98 - 192 07/07 [facility] DEHYDROGENASE [facility] CHEM PANEL Uric Acid 4.1 mg/dL 2.5 - 7.0 07/07 [facility] CHEM PANEL Phosphorus 2.5 mg/dL 2.5 - 4.5 07/07 [facility] ELECTROLYTE Chloride Lvl 108 meq/L 95 - 109 07/07 [facility] ELECTROLYTE Potassium Lvl 3.9 meq/L 3.5 - 5.1 07/07 [facility] ELECTROLYTE Calcium Lvl 10.0 mg/dL 8.5 - 10.5 07/07 [facility] ELECTROLYTE Bili Total 0.4 mg/dL 0.2 - 1.3 07/07 [facility] ELECTROLYTE CO2 24 meq/L 24 - 32 07/07 [facility] ELECTROLYTE Sodium Lvl 144 meq/L 135 - 145 07/07 [facility] ELECTROLYTE Creatinine 0.8 mg/dL 0.5 - 1.4 07/07 [facility] ELECTROLYTE ASPARTATE 6 unit/L 0 - 37 07/07 [facility] S TRANSAMINASE [facility] ELECTROLYTE Total Protein 6.8 g/dL 6.4 - 8.4 07/07 [facility] ELECTROLYTE eGFR 88 07/07 2Result Comment: The eGFR is calculated using the CKD-EPI formula. In most young, healthy individuals the eGFR will be > 90 mL/min/1.73m2. The eGFR declines with age. An eGFR of 60-89 may be normal in [facility] mL/min/1.7 some populations, particularly the elderly, for whom the CKD-EPI formula has not been extensively validated. Use of the eGFR is not recommended in the following populations: [address] Individuals with unstable creatinine concentrations, including patients and those with serious co-morbid conditions. Patients with extremes in muscle mass or diet. The data above are obtained from the National Kidney Disease Education Program (NKDEP) which additionally recommends that when the eGFR is used in patients with extremes of body mass index for purposes of drug dosing, the eGFR should be multiplied by the estimated BMI. ELECTROLYTE Glucose Lvl 114 mg/dL 70 - 99 07/07 5Interpretive Data: Adult reference range values reflect the clinical guidelines [facility] of the [place] [employer]. [facility] ELECTROLYTE BUN 21 mg/dL 7 - 22 07/07 [facility] ELECTROLYTE Albumin Lvl 4.1 g/dL 3.5 - 5.0 07/07 [facility] ELECTROLYTE Alk Phos 115 unit/L 39 - 136 07/07 [facility] ELECTROLYTE ALANINE 18 unit/L 0 - 65 07/07 [facility] AMINO [facility] ELECTROLYTE A/G Ratio 1.5 0.7 - 1.6 07/07 [facility] ELECTROLYTE Globulin 2.7 g/dL 2.0 - 4.0 07/07 [facility] ELECTROLYTE AGAP 15.9 meq/L 10.0 - 07/07 [facility] 20.0 [facility] ELECTROLYTE B/C Ratio 26 6 - 25 07/07 [facility] HEMATOLOGY Lymphocytes # 1.6 K/CMM 1.0 - 5.5 07/07 [facility] HEMATOLOGY Monocytes # 0.3 K/CMM 0.0 - 0.8 07/07 [facility] HEMATOLOGY Eosinophils # 0.1 K/CMM 0.0 - 0.5 07/07 [facility] HEMATOLOGY Basophils 0.6 % 0.0 - 1.0 07/07 [facility] HEMATOLOGY Monocytes 3.2 % 2.0 - 12.0 07/07 2013 [facility] HEMATOLOGY Eosinophils 0.9 % 0.0 - 4.0 07/07 2013 [facility] HEMATOLOGY Segs-Bands # 6.1 K/CMM 1.5 - 8.1 07/07 [facility] HEMATOLOGY Segs 75.2 % 45.0 - 07/07 75.0 /2013 [facility] HEMATOLOGY Lymphocytes 20.1 % 20.0 - 07/07 40.0 /2013 [facility] HEMATOLOGY MPV 10.1 fL 7.4 - 10.4 07/07 [facility] HEMATOLOGY MCHC 34.1 g/dL 32.0 - 07/07 36.0 [facility] HEMATOLOGY RDW 14.8 % 11.5 - 07/07 14.5 /2013 [facility] HEMATOLOGY Platelet 138 K/CMM 133 - 450 07/07 [facility] HEMATOLOGY Hct 37.4 % 36.0 - 07/07 48.0 [facility] HEMATOLOGY MCV 89.5 fL 81.0 - 07/07 99.0 /2013 [facility] HEMATOLOGY MCH 30.5 pg 27.0 - 07/07 31.0 [facility] HEMATOLOGY RBC X 10x6 4.18 M/CMM 4.20 - 07/07 5.40 /2013 [facility] HEMATOLOGY Hgb 12.8 g/dL 12.0 - 07/07 16.0 [facility] HEMATOLOGY WBC X 10x3 8.1 K/CMM 3.7 - 10.4 07/07 [facility] LIPIDS Trig 182 mg/dL <=149 07/07 [facility] mg/dL [facility] LIPIDS Chol 200 mg/dL <=199 07/07 [facility] mg/dL [facility] TOXICOLOGY Tacrolimus 9.1 ng/mL 5.0 - 15.0 07/07 [facility] Lvl [facility] TOXICOLOGY Immune Cell 306 07/07 8Result Comment: Replicates for this patient have an elevated %CV. [facility] All replicates were greater than or equal to 225 ng/mL. Medical Reference Range Center < cc=685 Low immune cell response [phone] Moderate immune cell response > jr=792 High immune cell response Test Performed at: [facility] [address] [place] [address] TIKI DUARTE M.D. URINE AND UA <=1.0 0.1 - 1.0 07/07 [facility] STOOL Urobilinogen mg/dL /2013 [facility] URINE AND UA Nitrite Negative Negative 07/07 [facility] (07/07/2013 06:35:00 [facility] [place] URINE AND UA Ketones Negative Negative 07/07 [facility] mg/dL mg/dL [facility] URINE AND UA Glucose 150 mg/dL Negative 07/07 [facility] mg/dL [facility] URINE AND UA Blood Negative Negative 07/07 [facility] (07/07/2013 06:35:00 [facility] [place] URINE AND UA Bili Negative Negative 07/07 [facility] Medical *NA* Center (07/07/2013 06:35:00 [facility]) URINE AND UA Protein Negative Negative 07/07 [facility] mg/dL mg/dL [facility] URINE AND UA Color Yellow Yellow 07/07 [facility] *NA* [place] (07/07/2013 06:35:00 [facility]) URINE AND UA pH 6.0 5.0 - 8.0 07/07 [facility] URINE AND UA Spec Grav 1.011 <=1.030 07/07 [facility] URINE AND UA Turbidity Clear Clear 07/07 [facility] (07/07/2013 06:35:00 [facility] [place] URINE AND UA Leuk Est Negative Negative 07/07 [facility] (07/07/2013 06:35:00 Raven/M[facility]) [place] URINE AND UA WBC 1 /HPF 0 - 5 07/07 [facility] URINE AND UA RBC null 0 - 2 07/07 [facility] URINE AND UA Sq Epi Occasional Few /LPF 07/07 [facility] STOOL /LPF [facility] URINE CHEM U Prot/Creat 0.3 07/07 [facility] URINE CHEM U Protein 20.7 mg/dL 07/07 14Interpretiv e Data: No Medical established Center reference ranges. URINE CHEM U Creatinine 72.0 mg/dL 07/07 11Interpretiv e Data: No [facility] Center reference ranges. CHEM PANEL Phosphorus 2.5 mg/dL 2.5 - 4.5 06/30 [facility] CHEM PANEL Uric Acid 5.0 mg/dL 2.5 - 7.0 06/30 [facility] CHEM PANEL eGFR 60 06/30 3Result Comment: The eGFR is calculated using the CKD-EPI formula. In most young, healthy individuals the eGFR will be >90 mL/ min/1.73m2. The eGFR declines with age. An eGFR of 60-89 may be normal in mL/min/1. some populations, particularly the elderly, for whom the CKD-EPI formula has not been extensively validated. Use of the eGFR is not recommended in the following populations: [place] [address] [facility] Individuals with unstable creatinine concentrations, including patients and those with serious co-morbid conditions. Patients with extremes in muscle mass or diet. The data above are obtained from the National Kidney Disease Education Program (NKDEP) which additionally recommends that when the eGFR is used in patients with extremes of body mass index for purposes of drug dosing, the eGFR should be multiplied by the estimated BMI. CHEM PANEL Bili Total 0.4 mg/dL 0.2 - 1.3 06/30 [facility] CHEM PANEL Total Protein 6.9 g/dL 6.4 - 8.4 06/30 [facility] CHEM PANEL ASPARTATE 7 unit/L 0 - 37 06/30 [facility] TRANSAMINASE [facility] CHEM PANEL Albumin Lvl 4.3 g/dL 3.5 - 5.0 06/30 [facility] CHEM PANEL ALANINE 19 unit/L 0 - 65 06/30 [facility] AMINO [facility] CHEM PANEL Alk Phos 138 unit/L 39 - 136 06/30 [facility] CHEM PANEL Glucose Lvl 158 mg/dL 70 - 99 06/30 6Interpretive Data: Adult reference range values reflect the clinical guidelines of the [place] [employer]. [facility] CHEM PANEL CO2 25 meq/L 24 - 32 06/30 [facility] CHEM PANEL Calcium Lvl 9.8 mg/dL 8.5 - 10.5 06/30 [facility] CHEM PANEL Creatinine 1.1 mg/dL 0.5 - 1.4 06/30 [facility] CHEM PANEL BUN 20 mg/dL 7 - 22 06/30 [facility] CHEM PANEL Sodium Lvl 140 meq/L 135 - 145 06/30 [facility] CHEM PANEL Potassium Lvl 4.2 meq/L 3.5 - 5.1 06/30 [facility] CHEM PANEL Chloride Lvl 105 meq/L 95 - 109 06/30 [facility] CHEM PANEL AGAP 14.2 meq/L 10.0 - 06/30 20.0 [facility] CHEM PANEL Globulin 2.6 g/dL 2.0 - 4.0 06/30 [facility] CHEM PANEL A/G Ratio 1.7 0.7 - 1.6 06/30 [facility] CHEM PANEL B/C Ratio 18 6 - 25 06/30 [facility] CHEM PANEL LACTATE 185 unit/L 98 - 192 06/30 [facility] HEMATOLOGY Monocytes # 0.3 K/CMM 0.0 - 0.8 06/30 [facility] HEMATOLOGY Eosinophils # 0.1 K/CMM 0.0 - 0.5 06/30 [facility] HEMATOLOGY Segs 73.5 % 45.0 - 06/30 75.0 [facility] HEMATOLOGY Eosinophils 1.1 % 0.0 - 4.0 06/30 [facility] HEMATOLOGY Monocytes 4.4 % 2.0 - 12.0 06/30 [facility] HEMATOLOGY Lymphocytes 20.4 % 20.0 - 06/30 40.0 [facility] HEMATOLOGY Lymphocytes # 1.5 K/CMM 1.0 - 5.5 06/30 [facility] HEMATOLOGY Segs-Bands # 5.4 K/CMM 1.5 - 8.1 06/30 [facility] HEMATOLOGY Basophils 0.6 % 0.0 - 1.0 06/30 [facility] HEMATOLOGY MCV 90.0 fL 81.0 - 06/30 99.0 [facility] HEMATOLOGY Hct 38.7 % 36.0 - 06/30 [place] 48.0 [facility] HEMATOLOGY MCH 30.2 pg 27.0 - 06/30 31.0 [facility] HEMATOLOGY RBC X 10x6 4.31 M/CMM 4.20 - 06/30 5.40 [facility] HEMATOLOGY Hgb 13.0 g/dL 12.0 - 06/30 16.0 [facility] HEMATOLOGY WBC X 10x3 7.4 K/CMM 3.7 - 10.4 06/30 [facility] HEMATOLOGY MCHC 33.6 g/dL 32.0 - 06/30 [facility] 36.0 /2013 [facility] HEMATOLOGY MPV 10.0 fL 7.4 - 10.4 06/30 [facility] HEMATOLOGY RDW 14.9 % 11.5 - 06/30 [facility] 14.5 [facility] HEMATOLOGY Platelet 161 K/CMM 133 - 450 06/30 [facility] LIPIDS Trig 152 mg/dL <=149 06/30 [facility] mg/dL [facility] LIPIDS Chol 200 mg/dL <=199 06/30 [facility] mg/dL [facility] TOXICOLOGY Tacrolimus 13.4 ng/mL 5.0 - 15.0 06/30 [facility] Lvl [facility] TOXICOLOGY Immune Cell 420 06/30 9Result Comment: Reference Range [facility] < ta=093 Low immune cell response [facility] [phone] Moderate immune cell response [place] > [id number]=996 High immune cell response Test Performed at: [facility] [address] [address] TIKI DUARTE M.D. URINE CHEM U Prot/Creat 0.2 06/30 [facility] URINE CHEM U Protein 15.8 mg/dL 06/30 15Interpretiv e Data: No [facility] established Center reference ranges. URINE CHEM U Creatinine 69.9 mg/dL 06/30 12Interpretiv e Data: No [facility] Center reference ranges. Renal Renal EXAM: US RENAL TRANSPLANT WITH DOPPLER 06/30 - [facility] transplant transplant - [facility] US This report was dictated by a Glove Pairer/Fellow. I have personally reviewed the images as Center well as the Resident's interpretation and agree with the findings. DATE: Jun 30, 2013 11:30:00 AM Read by: Ashlie Kenny Resident: Ashlie Kenny Dictated Date/time: 06/30/13 11:48 Electronically Signed by: Marcellus Booker MD 06/30/13 17:13 FINAL REPORT INDICATION: Right lower quadrant pain. ADDITIONAL INFORMATION: Status post renal transplant 05/23/2013. Transplant biopsy, 06/03/2013 COMPARISON: 06/05/2013 TECHNIQUE: Multiplanar grayscale, color Doppler and spectral Doppler ultrasound images of the right lower quadrant heterotopic renal transplant and urinary bladder were obtained. FINDINGS: A 10.9 x 4.9 x 5.0 cm right lower quadrant transplant is normal in echogenicity. There is redemonstration of the inferior pole isoechoic, exophytic lesion measuring 1.4 x 0.8 x 2.9 cm. This likely repre sents a evolving hematoma from previous biopsy. No ureteral stent is visualized. There is no perinephric fluid collection. Urinary bladder is unremarkable. There is interval resolution of the previously seen blood fluid level within the bladder. Doppler evaluation demonstrates normal color-flow perfusion. of the transplanted kidney Main renal artery peak systolic velocity is 426 centimeters per second. However, the RA:EI ratio is within normal limits. Main renal vein is patent. Intrarenal resistive indices are 0.6, 0. 6, and 0. 7 in the superior, mid and inferior kidney, respectively. Superficially, a 5.1 x 0.6 x 2.1 heterogeneous, hypoechoic structure is seen within the soft tissues near the incision site. There is no peripheral vascularity to suggest an abscess. IMPRESSION: 1. Patient is status post renal transplant and biopsy. Tiny residual perinephric hematoma along the inferior pole of the transplant kidney remains stable. 2. Elevated velocities within the main renal artery when compared with previous examination. However, the RA: EI ratio is within normal limits. 3. Interval resolution of previously seen blood fluid level within the urinary bladder. 4. Tiny linear anechoic fluid collection within the right lower quadrant abdominal wall superficially but deep to the incision site without surrounding vascularity, this may represent a seroma. CHEMISTRY Trig 163 mg/dL <=149 06/23 [facility] CHEMISTRY Phosphorus 2.1 mg/dL 2.5 - 4.5 06/23 LOW [facility] CHEMISTRY Chol 168 mg/dL <=199 06/23 Normal [facility] CHEMISTRY U Protein 16.7 mg/dL 06/23 16Interpretiv e Data: No [facility] established Center reference ranges. CHEMISTRY LACTATE 209 unit/L 98 - 192 06/23 [facility] CHEMISTRY Uric Acid 4.2 mg/dL 2.5 - 7.0 06/23 Normal [facility] CHEMISTRY U Creatinine 69.0 mg/dL 06/23 13Interpretiv e Data: No Medical established Center reference ranges. CHEMISTRY Tacrolimus 7.8 ng/mL 5.0 - 15.0 06/23 Normal [facility] [place] [facility] CHEMISTRY eGFR 76 06/23 3Result Comment: The eGFR is calculated using the CKD-EPI formula. In most young, healthy individuals the eGFR will be >90 mL/ min/1.73m2. The eGFR declines with age. An eGFR of 60-89 may be normal in [facility] mL/min/1.7 some populations, particularly the elderly, for whom the CKD-EPI formula has not been extensively validated. Use of the eGFR is not recommended in the following populations: [address] Individuals with unstable creatinine concentrations, including patients and those with serious co-morbid conditions. Patients with extremes in muscle mass or diet. The data above are obtained from the National Kidney Disease Education Program (NKDEP) which additionally recommends that when the eGFR is used in patients with extremes of body mass index for purposes of drug dosing, the eGFR should be multiplied by the estimated BMI. CHEMISTRY Total Protein 6.5 g/dL 6.4 - 8.4 06/23 Normal [facility] CHEMISTRY ASPARTATE null 0 - 37 06/23 Normal [facility] CHEMISTRY Potassium Lvl 4.1 meq/L 3.5 - 5.1 06/23 Normal [facility] CHEMISTRY Chloride Lvl 106 meq/L 95 - 109 06/23 Normal [facility] CHEMISTRY Creatinine 0.9 mg/dL 0.5 - 1.4 06/23 Normal [facility] CHEMISTRY Sodium Lvl 140 meq/L 135 - 145 06/23 Normal [facility] CHEMISTRY CO2 26 meq/L 24 - 32 06/23 Normal [facility] CHEMISTRY Calcium Lvl 9.7 mg/dL 8.5 - 10.5 06/23 Normal [facility] CHEMISTRY Bili Total 0.4 mg/dL 0.2 - 1.3 06/23 Normal [facility] CHEMISTRY Albumin Lvl 4.1 g/dL 3.5 - 5.0 06/23 Normal [facility] CHEMISTRY Alk Phos 142 unit/L 39 - 136 06/23 [place] [facility] CHEMISTRY Glucose Lvl 98 mg/dL 70 - 99 06/23 Normal 6Interpretive Data: Adult reference range values reflect the clinical guidelines of the [place] [employer]. [facility] CHEMISTRY BUN 21 mg/dL 7 - 22 06/23 Normal [facility] CHEMISTRY ALANINE 20 unit/L 0 - 65 06/23 Normal [facility] AMINO [facility] CHEMISTRY AGAP 12.1 meq/L 10.0 - 06/23 Normal [facility] 20.0 [facility] CHEMISTRY B/C Ratio 23 6 - 25 06/23 Normal [facility] CHEMISTRY Globulin 2.4 g/dL 2.0 - 4.0 06/23 Normal [facility] CHEMISTRY A/G Ratio 1.7 0.7 - 1.6 06/23 [place] [facility] CHEMISTRY U Prot/Creat 0.2 06/23 [facility] CHEMISTRY Immune Cell 366 06/23 10Result Comment: Reference Range < sr=436 Low immune cell response [facility] [phone] Moderate immune cell response Center > hd=349 High immune cell response Test Performed at: [facility] [address] [id number] TIKI DUARTE M.D. HEMATOLOGY MPV 9.6 fL 7.4 - 10.4 06/23 Normal [facility] HEMATOLOGY Platelet 191 K/CMM 133 - 450 06/23 Normal [facility] HEMATOLOGY RDW 14.9 % 11.5 - 06/23 [facility] 14.5 [facility] HEMATOLOGY WBC X 10x3 5.8 K/CMM 3.7 - 10.4 06/23 Normal [facility] HEMATOLOGY MCV 91.6 fL 81.0 - 06/23 Normal [facility] 99.0 [facility] HEMATOLOGY MCHC 33.4 g/dL 32.0 - 06/23 Normal [facility] 36.0 [facility] HEMATOLOGY MCH 30.6 pg 27.0 - 06/23 Normal [facility] 31.0 [facility] HEMATOLOGY Hct 36.3 % 36.0 - 06/23 Normal [facility] 48.0 [facility] HEMATOLOGY Hgb 12.1 g/dL 12.0 - 06/23 Normal [facility] 16.0 [facility] HEMATOLOGY RBC X 10x6 3.96 M/CMM 4.20 - 06/23 LOW [facility] 5.40 /2013 [facility] HEMATOLOGY Eosinophils # 0.1 K/CMM 0.0 - 0.5 06/23 Normal [facility] HEMATOLOGY Monocytes # 0.3 K/CMM 0.0 - 0.8 06/23 Normal [facility] HEMATOLOGY Lymphocytes # 1.3 K/CMM 1.0 - 5.5 06/23 Normal [facility] HEMATOLOGY Segs-Bands # 4.0 K/CMM 1.5 - 8.1 06/23 Normal [facility] HEMATOLOGY Lymphocytes 22.3 % 20.0 - 06/23 Normal [place] 40.0 [facility] HEMATOLOGY Basophils 0.4 % 0.0 - 1.0 06/23 Normal [facility] HEMATOLOGY Monocytes 5.4 % 2.0 - 12.0 06/23 Normal [facility] HEMATOLOGY Eosinophils 2.5 % 0.0 - 4.0 06/23 Normal [facility] HEMATOLOGY Segs 69.4 % 45.0 - 06/23 Normal [facility] 75.0 [facility] IMMUNOLOGY [place]/Lambda 0.81 Ratio 0.26 - 06/23 Normal [facility] Free Light 1.65 [facility] Chains [facility] IMMUNOLOGY [place] Free 10.45 mg/L 3.30 - 06/23 Normal [facility] Light Chains 19.40 [facility] IMMUNOLOGY Lambda Free 12.84 mg/L 5.70 - 06/23 Normal [facility] Light Chains 26.30 [facility] IMMUNOLOGY Tot Prot 6.5 g/dL 6.4 - 8.4 06/23 Normal [facility] (SPE) [facility] IMMUNOLOGY Gamma Glob 0.55 g/dL 0.71 - 06/23 LOW [facility] 1.57 [facility] IMMUNOLOGY SPE Interp Total 06/23 [facility] protein Medical within the Center reference range. Capillary serum protein electropho resis revealed a relative elevation in the albumin fraction and a significan t decrease in the gamma globulin fraction with no other abnormalit ies in protein fraction distributi on. Per EMR the patient is status post renal transplant . Hypogammag lobulinemi a is most likely due to immunosupp ressive treatment. Clinical correlatio n is necessary. If clinically indicated, recommend 24- hour urine immunofixa tion study to rule out the presence of Bence-Attila s proteins.T he electronic medical record has been reviewed for relevant history.I have personally reviewed the test results and concur with the resident's interpreta tion.CPT: 71926 IMMUNOLOGY Beta Glob 0.57 g/dL 0.50 - 06/23 Normal [facility] 1.15 /2013 [facility] IMMUNOLOGY Albumin (SPE) 4.49 g/dL 3.57 - 06/23 Normal [facility] 5.55 /2013 [facility] IMMUNOLOGY Alpha 1 Glob 0.29 g/dL 0.18 - 06/23 Normal [facility] 0.41 /2013 [facility] IMMUNOLOGY Alpha 2 Glob 0.60 g/dL 0.45 - 06/23 Normal [facility] 1.00 /2013 [facility] IMMUNOLOGY Alpha 2 % 9.2 REL % 7.0 - 11.9 06/23 Normal [facility] IMMUNOLOGY Alpha 1 % 4.5 REL % 2.8 - 4.9 06/23 Normal [facility] IMMUNOLOGY Gamma % 8.5 REL % 11.1 - 06/23 LOW [facility] 18.7 /2013 [facility] IMMUNOLOGY Beta % 8.7 REL % 7.8 - 13.7 06/23 Normal [facility] IMMUNOLOGY Albumin % 69.1 REL % 55.8 - 06/23 HI [facility] 66.1 [facility] URINALYSIS UA <=1.0 0.1 - 1.0 06/23 [facility] Urobilinogen mg/dL /2013 [facility] URINALYSIS UA Sq Epi None Seen 06/23 [facility] URINALYSIS UA WBC 1 /HPF 0 - 5 06/23 Normal [facility] URINALYSIS UA Nitrite Negative Negative 06/23 Normal [facility] (06/23/2013 07:20:00) [place] URINALYSIS UA Leuk Est Negative Negative 06/23 Normal [facility] (06/23/2013 07:20:00) Center URINALYSIS UA Blood Negative Negative 06/23 Normal [facility] (06/23/2013 07:20:00) Center URINALYSIS UA Mucus Few /LPF None Seen 06/23 [facility] URINALYSIS UA Amorph Occasional None Seen 06/23 [facility] [place] /HPF /2013 [facility] URINALYSIS UA RBC null 0 - 2 06/23 Normal [facility] URINALYSIS UA Turbidity Clear Clear 06/23 Normal [facility] (06/23/2013 07:20:00) Center URINALYSIS UA Protein Negative Negative 06/23 Normal [facility] mg/dL [facility] URINALYSIS UA Ketones Negative Negative 06/23 [facility] mg/dL [facility] URINALYSIS UA Bili Negative Negative 06/23 [facility] *NA* Center (06/23/2013 07:20:00) URINALYSIS UA Spec Grav 1.011 <=1.030 06/23 Normal [facility] URINALYSIS UA pH 6.0 5.0 - 8.0 06/23 Normal [facility] URINALYSIS UA Color Yellow Yellow 06/23 [facility] *NA* [place] (06/23/2013 07:20:00) URINALYSIS UA Glucose 50 mg/dL Negative 06/23 ABN [facility] CHEMISTRY U Protein 18.4 mg/dL 06/19 17Interpretiv e Data: No [facility] Center reference ranges. CHEMISTRY U Creatinine 60.4 mg/dL 06/19 14Interpretiv e Data: No [facility] reference ranges. CHEMISTRY Immune Cell 357 06/19 11Result Comment: Reference Range [facility] < jd=279 Low immune cell response [facility] [phone] Moderate immune cell response [place] > rw=521 High immune cell response Test Performed at: [facility] [address] [address] TIKI DUARTE M.D. CHEMISTRY Tacrolimus 11.3 ng/mL 5.0 - 15.0 06/19 Normal [facility] Lvl [facility] CHEMISTRY Uric Acid 4.0 mg/dL 2.5 - 7.0 06/19 Normal [facility] CHEMISTRY LACTATE 194 unit/L 98 - 192 06/19 [facility] CHEMISTRY Trig 161 mg/dL <=149 06/19 [facility] CHEMISTRY Chol 175 mg/dL <=199 06/19 Normal [facility] CHEMISTRY eGFR 88 06/19 4Result Comment: The eGFR is calculated using the CKD-EPI formula. In most young, healthy individuals the eGFR will be >90 mL/ min/1.73m2. The eGFR declines with age. An eGFR of 60-89 may be normal in [facility] mL/min/1.7 some populations, particularly the elderly, for whom the CKD-EPI formula has not been extensively validated. Use of the eGFR is not recommended in the following populations: [facility] Individuals with unstable creatinine concentrations, including patients and those with serious co-morbid conditions. Patients with extremes in muscle mass or diet. The data above are obtained from the National Kidney Disease Education Program (NKDEP) which additionally recommends that when the eGFR is used in patients with extremes of body mass index for purposes of drug dosing, the eGFR should be multiplied by the estimated BMI. CHEMISTRY Alk Phos 133 unit/L 39 - 136 06/19 Normal [facility] CHEMISTRY ALANINE 28 unit/L 0 - 65 06/19 Normal [facility] AMINO [facility] CHEMISTRY Albumin Lvl 4.4 g/dL 3.5 - 5.0 06/19 Normal [facility] CHEMISTRY Glucose Lvl 121 mg/dL 70 - 99 06/19 [place] 7Interpretive Data: Adult reference range values reflect the clinical guidelines of the [place] [employer]. [facility] CHEMISTRY BUN 19 mg/dL 7 - 22 06/19 Normal [facility] CHEMISTRY Bili Total 0.5 mg/dL 0.2 - 1.3 06/19 Normal [facility] CHEMISTRY CO2 24 meq/L 24 - 32 06/19 Normal [facility] CHEMISTRY Calcium Lvl 9.6 mg/dL 8.5 - 10.5 06/19 Normal [facility] CHEMISTRY Total Protein 6.7 g/dL 6.4 - 8.4 06/19 Normal [facility] CHEMISTRY ASPARTATE 9 unit/L 0 - 37 06/19 Normal [facility] TRANSAMINASE [facility] CHEMISTRY Sodium Lvl 141 meq/L 135 - 145 06/19 Normal [facility] CHEMISTRY Potassium Lvl 4.1 meq/L 3.5 - 5.1 06/19 Normal [facility] CHEMISTRY Creatinine 0.8 mg/dL 0.5 - 1.4 06/19 Normal [facility] CHEMISTRY Chloride Lvl 106 meq/L 95 - 109 06/19 Normal [facility] CHEMISTRY Globulin 2.3 g/dL 2.0 - 4.0 06/19 Normal [facility] CHEMISTRY AGAP 15.1 meq/L 10.0 - 06/19 Normal [facility] 20.0 [facility] CHEMISTRY A/G Ratio 1.9 0.7 - 1.6 06/19 [facility] CHEMISTRY B/C Ratio 24 6 - 25 06/19 Normal [facility] CHEMISTRY Phosphorus 1.9 mg/dL 2.5 - 4.5 06/19 LOW [facility] CHEMISTRY U Prot/Creat 0.3 06/19 [facility] HEMATOLOGY MPV 9.2 fL 7.4 - 10.4 06/19 Normal [facility] HEMATOLOGY RDW 15.7 % 11.5 - 06/19 [facility] 14.5 /2013 [facility] [place] HEMATOLOGY MCH 30.3 pg 27.0 - 06/19 [facility] 31.0 [facility] HEMATOLOGY MCV 91.6 fL 81.0 - 06/19 [facility] 99.0 /2013 [facility] HEMATOLOGY Hct 35.6 % 36.0 - 06/19 [facility] 48.0 /2013 [facility] HEMATOLOGY Platelet 165 K/CMM 133 - 450 06/19 Normal [facility] [place] HEMATOLOGY MCHC 33.1 g/dL 32.0 - 06/19 Normal [facility] 36.0 [facility] HEMATOLOGY Hgb 11.8 g/dL 12.0 - 06/19 [facility] 16.0 /2013 [facility] HEMATOLOGY RBC X 10x6 3.89 M/CMM 4.20 - 06/19 [facility] 5.40 /2013 [facility] HEMATOLOGY WBC X 10x3 5.4 K/CMM 3.7 - 10.4 06/19 Normal [facility] HEMATOLOGY Lymphocytes 18.8 % 20.0 - 06/19 [facility] 40.0 /2013 [facility] HEMATOLOGY Segs 72.1 % 45.0 - 06/19 [facility] 75.0 /2013 [facility] HEMATOLOGY Basophils 0.4 % 0.0 - 1.0 06/19 Normal [facility] HEMATOLOGY Segs-Bands # 3.9 K/CMM 1.5 - 8.1 06/19 Normal [facility] HEMATOLOGY Monocytes 6.1 % 2.0 - 12.0 06/19 Normal [facility] HEMATOLOGY Eosinophils 2.6 % 0.0 - 4.0 06/19 Normal [facility] HEMATOLOGY Lymphocytes # 1.0 K/CMM 1.0 - 5.5 06/19 [facility] HEMATOLOGY Eosinophils # 0.1 K/CMM 0.0 - 0.5 06/19 Normal [facility] HEMATOLOGY Monocytes # 0.3 K/CMM 0.0 - 0.8 06/19 Normal [facility] URINALYSIS UA Sq Epi None Seen 06/19 [facility] URINALYSIS UA Mucus Few /LPF None Seen 06/19 [facility] URINALYSIS UA WBC 1 /HPF 0 - 5 06/19 Normal [facility] URINALYSIS UA <=1.0 0.1 - 1.0 06/19 [facility] Urobilinogen mg/dL [facility] URINALYSIS UA Nitrite Negative Negative 06/19 Normal [facility] (06/19/2013 08:36:00) Center URINALYSIS UA Leuk Est Negative Negative 06/19 Normal [facility] (06/19/2013 08:36:00) Center URINALYSIS UA Spec Grav 1.011 <=1.030 06/19 Normal [facility] URINALYSIS UA Turbidity Clear Clear 06/19 Normal [facility] (06/19/2013 08:36:00) Center URINALYSIS UA Protein Negative Negative 06/19 Normal [facility] mg/dL [facility] URINALYSIS UA pH 6.0 5.0 - 8.0 06/19 Normal [facility] URINALYSIS UA Bili Negative Negative 06/19 [facility] *NA* [place] (06/19/2013 08:36:00) URINALYSIS UA Ketones Negative Negative 06/19 [facility] mg/dL [facility] URINALYSIS UA Blood Negative Negative 06/19 Normal [facility] (06/19/2013 08:36:00) Center URINALYSIS UA Glucose 300 mg/dL Negative 06/19 ABN [facility] URINALYSIS UA Color Yellow Yellow 06/19 [facility] *NA* [place] (06/19/2013 08:36:00) Spine Spine lumbar EXAM: LUMBAR SPINE 5 VIEWS 06/19 - [facility] lumbar minimum - [facility] minimum 4 views Center views DATE: Jun 19, 2013 12:36:00 PM Read by: Thierry Berg Date/time: 06/19/13 17:12 Electronically Signed by: Thierry Berg MD 06/20/13 11:58 FINAL REPORT INDICATION: S/P RENAL TRANSPLANT WITH LBP COMPARISON: None available TECHNIQUE: AP, lateral, coned lateral, and bilateral oblique radiographs of the lumbar spine FINDINGS: There is satisfactory alignment of the lumbar spine. Vertebral body and disc heights are preserved. There is mild facet arthropathy of the inferior lumbar spine. Renal stent of renal transplant is present in the right iliac fossa. IMPRESSION: Mild facet arthropathy of the inferior lumbar spine. Renal US Renal US EXAM: US RENAL 06/19 - - Medical This report was dictated by a Glove Pairer/Fellow. I have personally reviewed the images as Center well as the Resident's interpretation and agree with the findings. DATE: 06/19/2013 at 1156. Read by: Veronica Jalloh Resident: Veronica Jalloh Dictated Date/time: 06/19/13 14:22 Electronically Signed by: Arik Benitez MD 06/19/13 16:08 FINAL REPORT INDICATION: Dehydration, evaluate [place] kidneys. COMPARISON: No [place] kidney studies available for comparison. TECHNIQUE: Multiplanar grayscale and color Doppler ultrasound images of the kidneys and urinary bladder were obtained. FINDINGS: Kidneys are atrophic without masses or hydronephrosis. Right kidney is 5.1 x 2.9 x 2.5 cm and left is 7.1 x 3.4 x 2.8 cm. Renal echogenicity is increased. No renal calculi or echogenic focus noted. Urinary bladder appears normal. IMPRESSION: 1. Bilateral atrophic kidneys with increased echogenicity with no gross focal lesion identified, consistent with chronic medical renal disease. CHEMISTRY LACTATE 213 unit/L 98 - 192 06/16 [facility] CHEMISTRY Trig 197 mg/dL <=149 06/16 [facility] CHEMISTRY Chol 149 mg/dL <=199 06/16 Normal [facility] CHEMISTRY eGFR 104 06/16 5Result Comment: The eGFR is calculated using the CKD-EPI formula. In most young, healthy individuals the eGFR will be >90 mL/ min/1.73m2. The eGFR declines with age. An eGFR of 60-89 may be normal in [facility] mL/min/1. some populations, particularly the elderly, for whom the CKD-EPI formula has not been extensively validated. Use of the eGFR is not recommended in the following populations: [address] Individuals with unstable creatinine concentrations, including patients and those with serious co-morbid conditions. Patients with extremes in muscle mass or diet. The data above are obtained from the National Kidney Disease Education Program (NKDEP) which additionally recommends that when the eGFR is used in patients with extremes of body mass index for purposes of drug dosing, the eGFR should be multiplied by the estimated BMI. CHEMISTRY ASPARTATE 17 unit/L 0 - 37 06/16 Normal [facility] CHEMISTRY CO2 21 meq/L 24 - 32 06/16 LOW [facility] CHEMISTRY Calcium Lvl 9.2 mg/dL 8.5 - 10.5 06/16 Normal [facility] CHEMISTRY Bili Total 0.6 mg/dL 0.2 - 1.3 06/16 Normal [facility] CHEMISTRY Total Protein 6.6 g/dL 6.4 - 8.4 06/16 Normal [facility] CHEMISTRY Alk Phos 112 unit/L 39 - 136 06/16 Normal [facility] CHEMISTRY Glucose Lvl 140 mg/dL 70 - 99 06/16 [place] 8Interpretive Data: Adult reference range values reflect the clinical guidelines of the [place] [employer]. [facility] CHEMISTRY ALANINE 25 unit/L 0 - 65 06/16 Normal [facility] AMINOTRANSFER [facility] CHEMISTRY Albumin Lvl 4.5 g/dL 3.5 - 5.0 06/16 Normal [facility] CHEMISTRY BUN 28 mg/dL 7 - 22 06/16 [facility] CHEMISTRY Chloride Lvl 111 meq/L 95 - 109 06/16 [facility] CHEMISTRY Creatinine 0.7 mg/dL 0.5 - 1.4 06/16 Normal [facility] CHEMISTRY Sodium Lvl 141 meq/L 135 - 145 06/16 Normal [facility] CHEMISTRY Potassium Lvl 4.5 meq/L 3.5 - 5.1 06/16 Normal [facility] CHEMISTRY AGAP 13.5 meq/L 10.0 - 06/16 Normal [facility] 20.0 [facility] CHEMISTRY A/G Ratio 2.1 0.7 - 1.6 06/16 [facility] CHEMISTRY B/C Ratio 40 6 - 25 06/16 [facility] CHEMISTRY Globulin 2.1 g/dL 2.0 - 4.0 06/16 Normal [facility] CHEMISTRY Phosphorus 1.5 mg/dL 2.5 - 4.5 06/16 [facility] 9Result Comment: [facility] Critical Center Result(s) called to merna segundo at 06/16/2013 11:13 by mlanalia. Read back OK. CHEMISTRY U Protein 20.1 mg/dL 06/16 18Interpretiv e Data: No [facility] established Center reference ranges. CHEMISTRY Uric Acid 4.2 mg/dL 2.5 - 7.0 06/16 Normal [facility] CHEMISTRY Magnesium Lvl 1.1 mg/dL 1.8 - 2.4 06/16 LOW [facility] CHEMISTRY Tacrolimus 16.4 ng/mL 5.0 - 15.0 06/16 [facility] Center CHEMISTRY U Creatinine 35.2 mg/dL 06/16 15Interpretiv e Data: No [facility] Center reference ranges. CHEMISTRY U Prot/Creat 0.6 06/16 [facility] CHEMISTRY Immune Cell 358 06/16 12Result Comment: Reference Range [facility] < [id number] Low immune cell response [facility] [phone] Moderate immune cell response [place] > [id number] High immune cell response Test Performed at: [facility] [address] [id number] TIKI DUARTE M.D. CHEMISTRY Ca Norm WB 1.25 1.05 - 06/16 Normal [facility] mMol/L 1. [facility] CHEMISTRY Ca Ion WB 1.28 1.05 - 06/16 [facility] [place] mMol/L 1. [facility] HEMATOLOGY Platelet 131 K/CMM 133 - 450 06/16 LOW [facility] HEMATOLOGY MCHC 33.4 g/dL 32.0 - 06/16 Normal [facility] 36.0 [facility] HEMATOLOGY RDW 16.1 % 11.5 - 06/16 [facility] 14.5 [facility] HEMATOLOGY MPV 9.8 fL 7.4 - 10.4 06/16 Normal [facility] HEMATOLOGY MCH 30.6 pg 27.0 - 06/16 Normal [facility] 31.0 /2013 [facility] HEMATOLOGY MCV 91.8 fL 81.0 - 06/16 Normal [facility] 99.0 /2013 [facility] HEMATOLOGY Hct 37.3 % 36.0 - 06/16 Normal [facility] 48.0 /2013 [facility] HEMATOLOGY Hgb 12.4 g/dL 12.0 - 06/16 Normal [facility] 16.0 /2013 [facility] HEMATOLOGY RBC X 10x6 4.06 M/CMM 4.20 - 06/16 LOW [facility] 5.40 /2013 [facility] HEMATOLOGY WBC X 10x3 6.4 K/CMM 3.7 - 10.4 06/16 Normal [facility] HEMATOLOGY Segs 82.6 % 45.0 - 06/16 [place] [facility] 75.0 /2013 [facility] HEMATOLOGY Lymphocytes 11.4 % 20.0 - 06/16 [facility] 40.0 [facility] HEMATOLOGY Monocytes 4.2 % 2.0 - 12.0 06/16 Normal [facility] HEMATOLOGY Segs-Bands # 5.3 K/CMM 1.5 - 8.1 06/16 Normal [facility] HEMATOLOGY Lymphocytes # 0.7 K/CMM 1.0 - 5.5 06/16 LOW [facility] HEMATOLOGY Eosinophils 1.6 % 0.0 - 4.0 06/16 Normal [facility] HEMATOLOGY Basophils 0.2 % 0.0 - 1.0 06/16 Normal [facility] HEMATOLOGY Monocytes # 0.3 K/CMM 0.0 - 0.8 06/16 Normal [facility] HEMATOLOGY Eosinophils # 0.1 K/CMM 0.0 - 0.5 06/16 [facility] IMMUNOLOGY EBV PCR Qnt null 06/16 19Result Comment: REFERENCE RANGE: < 200 copies/mL [facility] This test was developed and its performance Center characteristics have been determined by [employer]. It has not been cleared or approved by the U.S. Food and Drug Administration. The FDA has determined that such clearance or approval is not necessary. Performance characteristics refer to the analytical performance of the test. Test Performed at: [facility] [address] [place] [address] Raffi Turk MD IMMUNOLOGY Source BLOOD 06/16 [facility] IMMUNOLOGY [place] Free 9.73 mg/L 3.30 - 06/16 Normal [facility] Light Chains 19.40 /2013 [facility] IMMUNOLOGY [place]/Lambda 0.73 Ratio 0.26 - 06/16 Normal [facility] Free Light 1.65 Medical Chains [facility] IMMUNOLOGY Lambda Free 13.37 mg/L 5.70 - 06/16 Normal [facility] Light Chains 26.30 /2013 [facility] IMMUNOLOGY Tot Prot 19 mg/dL 06/16 [facility] (UPE) [facility] IMMUNOLOGY Spec Type random 06/16 [facility] (UPE) 100x /2013 [facility] IMMUNOLOGY Interp (UPE) Normal 06/16 [facility] urine [facility] protein Center electropho resis with a trace amount of albumin. There is no evidence of a paraprotei n. Please note that a random urine specimen was submitted. The electronic medical record has been reviewed for relevant history.I have personally reviewed the test results and concur with the resident's interpreta tion.CPT 78043-KL IMMUNOLOGY Gamma % 7.7 REL % 11.1 - 06/16 LOW [place] 18.7 [facility] IMMUNOLOGY Beta % 7.2 REL % 7.8 - 13.7 06/16 LOW [facility] IMMUNOLOGY Tot Prot 6.6 g/dL 6.4 - 8.4 06/16 Normal [facility] (SPE) [facility] IMMUNOLOGY Beta Glob 0.48 g/dL 0.50 - 06/16 LOW [place] 1.15 /2013 [facility] IMMUNOLOGY Alpha 2 Glob 0.53 g/dL 0.45 - 06/16 Normal [place] 1.00 [facility] IMMUNOLOGY Gamma Glob 0.51 g/dL 0.71 - 06/16 LOW [place] 1.57 [facility] IMMUNOLOGY SPE Interp Total 06/16 [facility] protein Medical within the Center reference range. Capillary serum protein electropho resis revealed a significan t decrease in the gamma globulin fraction with no other abnormalit ies in protein fraction distributi on. Per EMR the patient is status post renal transplant . The identified hypogammag lobulinemi a is most likely due to immunosupp ressive treatment. Clinical correlatio n is necessary. I have personally reviewed the test results and concur with the resident's interpreta tion.CPT: 20735 IMMUNOLOGY Albumin (SPE) 4.80 g/dL 3.57 - 01/06 Normal [facility] [place] 5.55 /2013 [facility] IMMUNOLOGY Alpha 1 Glob 0.28 g/dL 0.18 - 06/16 Normal [place] 0.41 /2013 [facility] IMMUNOLOGY Alpha 2 % 8.0 REL % 7.0 - 11.9 06/16 Normal [facility] IMMUNOLOGY Alpha 1 % 4.3 REL % 2.8 - 4.9 06/16 Normal [facility] IMMUNOLOGY Albumin % 72.8 REL % 55.8 - 06/16 [place] 66.1 /2013 [facility] INFECTIOUS BK Virus PCR null 06/16 2Interpretive Data: Analytic Quantification Range: 100-400,000,000 copies/mL (2.0-8.6 log) [facility] DISEASES Qnt (log) Medical BK DNA detected below 100 copies/mL will be resulted as "BK DNA Center detected, less than 100 copies/mL." No target BK DNA detected will be reported as "BK DNA not detected. " A negative result does not rule out the possibility of the presence of the BK virus. The specimen may contain BK below the detectable limits of the assay. The BK Virus is a DNA virus belonging to the polyomaviruses. The BK Virus assay targets a 274 base pair region of the BK virus genome. This assay utilizes analyte specific (ASR) reagents for Real-Time nucleic acid amplification (PCR). Results should not be used as the sole basis for clinical diagnosis, treatment or patient management. Performance characteristics have been verified by the [facility] within [facility]. The Molecular Diagnostic Laboratory is authorized under the Clinical Laboratory Improve ment Amendments of 1988 (CLIA-88) to perform high complexity testing. INFECTIOUS BK Virus PCR Negative Negative 06/16 Normal [facility] DISEASES Qnt /2013 Medical (06/16/2013 08:35:00) [place] INFECTIOUS Source BK Plasma 06/16 [facility] DISEASES Virus PCR Qnt [facility] INFECTIOUS CMV PCR Qnt Negative Negative 06/16 Normal [facility] Medical (06/16/2013 08:35:00) [place] INFECTIOUS CMV PCR Qnt null 06/16 1Interpretive Data: Analytic Quantification Range: 250-2,500,000 copies/mL (2.4-6.4 log) [facility] (log) Medical CMV DNA detected below 250 copies/mL will be resulted as "CMV DNA Center detected, less than 250 copies/mL." No target CMV DNA detected will be reported as "CMV DNA not detected." A negative result does not rule out the possibility of the presence of Cytomegalovirus. The specimen may contain CMV below the detectable limits of the assay. The human Cytomegalovirus (CMV) is a DNA virus belonging to the herpes virus family. The CMV Virus assay targets a 105 base pair region of the CMV virus genome. This assay utilizes analyte specific (ASR) reagents for Real-Time nucleic acid amplification (PCR). Results should not be used as the sole basis for clinical diagnosis, treatment or patient management. Performance characteristics have been verified by the [facility] within [facility]. The Molecular Diagnostic Laboratory is authorized under the Clinical Laboratory Improve ment Amendments of 1988 (CLIA-88) to perform high complexity testing. INFECTIOUS Source CMV Blood 06/16 [facility] DISEASES PCR Qnt [facility] *NA* [place] (06/16/2013 08:35:00) URINALYSIS UA Glucose 500mg/dL 06/16 [facility] URINALYSIS UA <=1.0 0.1 - 1.0 06/16 [facility] Urobilinogen mg/dL [facility] URINALYSIS UA Leuk Est Negative Negative 06/16 Normal [facility] (06/16/2013 08:35:00) [place] URINALYSIS UA Nitrite Negative Negative 06/16 Normal [facility] (06/16/2013 08:35:00) [place] URINALYSIS UA Blood Negative Negative 06/16 Normal [facility] (06/16/2013 08:35:00) [place] URINALYSIS UA Bili Negative Negative 06/16 Medical *NA* [place] (06/16/2013 08:35:00) URINALYSIS UA WBC null 0 - 5 06/16 Normal [facility] URINALYSIS UA Sq Epi Occasional Few 06/16 [facility] /LPF [facility] URINALYSIS UA Ketones Negative Negative 06/16 [facility] mg/dL [facility] URINALYSIS UA Protein Negative Negative 06/16 Normal [facility] mg/dL [facility] URINALYSIS UA pH 6.5 5.0 - 8.0 06/16 Normal [facility] URINALYSIS UA Color Light Yellow Yellow 06/16 Medical *NA* [place] (06/16/2013 08:35:00) URINALYSIS UA Spec Grav 1.009 <=1.030 06/16 Normal [facility] Center URINALYSIS UA Turbidity Clear Clear 06/16 Normal Medical (06/16/2013 08:35:00) Center BEDSIDE Glucose POC 232 mg/dL 70 - 99 06/12 [place] 2Interpretive [facility] GLUCOSE Data: Medical TESTING Center Upper Reportable Limit: 200 mg/dL. BLOOD BANK RBC product Product available 06/11 Normal [facility] RESULTS Medical (06/11/2013 15:43:53) Center BEDSIDE Glucose POC 187 mg/dL 70 - 99 06/11 [place] 3Interpretive [facility] GLUCOSE Data: Medical TESTING Center Upper Reportable Limit: 200 mg/dL. BLOOD BANK RBC product Product available 06/11 Normal [facility] (06/11/2013 12:09:00) Center BEDSIDE Glucose POC 117 mg/dL 70 - 99 06/11 [place] 4Interpretive [facility] GLUCOSE Data: Medical TESTING Center Upper Reportable Limit: 200 mg/dL. BEDSIDE Gluc POC Notified 06/11 [facility] GLUCOSE Comment 1 RN/MD Medical TESTING Center BLOOD BANK Antibody Scrn Negative 06/11 Normal [facility] Medical (06/11/2013 11:50:00) [place] BLOOD BANK ABO/Rh O POS 06/11 [facility] CHEMISTRY Tacrolimus 13.3 ng/mL 5.0 - 15.0 06/11 Normal [facility] Lvl [facility] CHEMISTRY Magnesium Lvl 1.5 mg/dL 1.8 - 2.4 06/11 LOW [facility] CHEMISTRY AGAP 13.2 meq/L 10.0 - 06/11 Normal [facility] 20.0 [facility] CHEMISTRY eGFR 76 06/11 5Result Comment: The eGFR is calculated using the CKD-EPI formula. In most young, healthy individuals the eGFR will be >90 mL/ min/1.73m2. The eGFR declines with age. An eGFR of 60-89 may be normal in [facility] mL/min/1.7 some populations, particularly the elderly, for whom the CKD-EPI formula has not been extensively validated. Use of the eGFR is not recommended in the following populations: [address] Center Individuals with unstable creatinine concentrations, including patients and those with serious co-morbid conditions. Patients with extremes in muscle mass or diet. The data above are obtained from the National Kidney Disease Education Program (NKDEP) which additionally recommends that when the eGFR is used in patients with extremes of body mass index for purposes of drug dosing, the eGFR should be multiplied by the estimated BMI. CHEMISTRY Calcium Lvl 8.7 mg/dL 8.5 - 10.5 06/11 Normal [facility] CHEMISTRY Creatinine 0.9 mg/dL 0.5 - 1.4 06/11 Normal [facility] Lvl [facility] Center CHEMISTRY Sodium Lvl 142 meq/L 135 - 145 06/11 Normal [facility] Center CHEMISTRY Potassium Lvl 4.2 meq/L 3.5 - 5.1 06/11 [facility] CHEMISTRY Chloride Lvl 112 meq/L 95 - 109 06/11 [facility] CHEMISTRY CO2 21 meq/L 24 - 32 06/11 LOW [facility] CHEMISTRY BUN 20 mg/dL 7 - 22 06/11 Normal [facility] CHEMISTRY Glucose Lvl 174 mg/dL 70 - 99 06/11 [place] 8Interpretive Data: Adult reference range values reflect the clinical guidelines of the [place] [employer]. Medical Center CHEMISTRY Phosphorus 1.5 mg/dL 2.5 - 4.5 06/11 [facility] 11Result Comment: [facility] Critical Center Result(s) called to Nicky palmer 06/11/2013 08:23 by kraig. Read back OK. HEMATOLOGY RBC X 10x6 2.50 M/CMM 4.20 - 06/11 [facility] 5.40 /2013 [facility] HEMATOLOGY WBC X 10x3 4.3 K/CMM 3.7 - 10.4 06/11 Normal [facility] HEMATOLOGY MCV 93.3 fL 81.0 - 06/11 [facility] 99.0 [facility] HEMATOLOGY Hct 23.3 % 36.0 - 06/11 [facility] 48.0 /2013 [facility] HEMATOLOGY MPV 10.3 fL 7.4 - 10.4 06/11 Normal [facility] HEMATOLOGY Hgb 7.4 g/dL 12.0 - 06/11 [facility] 16.0 [facility] HEMATOLOGY RDW 16.9 % 11.5 - 06/11 [facility] 14.5 /2013 [facility] HEMATOLOGY MCHC 31.9 g/dL 32.0 - 06/11 LOW [facility] 36.0 /2013 [facility] HEMATOLOGY MCH 29.8 pg 27.0 - 06/11 Normal [facility] 31.0 [facility] HEMATOLOGY Platelet 69 K/CMM 133 - 450 06/11 LOW [facility] HEMATOLOGY Segs 87.1 % 45.0 - 06/11 [place] [facility] 75.0 /2013 [facility] HEMATOLOGY Segs-Bands # 3.7 K/CMM 1.5 - 8.1 06/11 Normal [facility] HEMATOLOGY Basophils 0.2 % 0.0 - 1.0 06/11 Normal [facility] HEMATOLOGY Eosinophils 0.4 % 0.0 - 4.0 06/11 [facility] HEMATOLOGY Lymphocytes 8.0 % 20.0 - 06/11 [facility] 40.0 [facility] HEMATOLOGY Monocytes # 0.2 K/CMM 0.0 - 0.8 06/[address] HEMATOLOGY Monocytes 4.3 % 2.0 - 12.0 06/11 Normal [facility] HEMATOLOGY Lymphocytes # 0.3 K/CMM 1.0 - 5.5 06/11 LOW [facility] [address] [place] [address] BEDSIDE Gluc POC Notified 06/11 [facility] GLUCOSE Comment 1 RN/ /2013 [facility] Center CHEMISTRY eGFR 54 06/10 6Result Comment: The eGFR is calculated using the CKD-EPI formula. In most young, healthy individuals the eGFR will be >90 mL/ min/1.73m2. The eGFR declines with age. An eGFR of 60-89 may be normal in [facility] mL/min/1. some populations, particularly the elderly, for whom the CKD-EPI formula has not been extensively validated. Use of the eGFR is not recommended in the following populations: [address] Individuals with unstable creatinine concentrations, including patients and those with serious co-morbid conditions. Patients with extremes in muscle mass or diet. The data above are obtained from the National Kidney Disease Education Program (NKDEP) which additionally recommends that when the eGFR is used in patients with extremes of body mass index for purposes of drug dosing, the eGFR should be multiplied by the estimated BMI. CHEMISTRY Glucose Lvl 133 mg/dL 70 - 99 06/10 [place] 9Interpretive Data: Adult reference range values reflect the clinical guidelines MH of the [place] [employer]. Medical Center CHEMISTRY Creatinine 1.2 mg/dL 0.5 - 1.4 06/10 Normal [facility] Medical Center CHEMISTRY BUN 20 mg/dL 7 - 22 06/10 Normal Medical Center CHEMISTRY Chloride Lvl 116 meq/L 95 - 109 06/10 [facility] CHEMISTRY Sodium Lvl 145 meq/L 135 - 145 06/10 Normal [facility] CHEMISTRY Calcium Lvl 8.6 mg/dL 8.5 - 10.5 06/10 [facility] CHEMISTRY CO2 19 meq/L 24 - 32 06/10 [facility] CHEMISTRY Potassium Lvl 4.1 meq/L 3.5 - 5.1 06/10 Normal [facility] CHEMISTRY AGAP 14.1 meq/L 10.0 - 06/10 Normal [facility] 20.0 [facility] CHEMISTRY Magnesium Lvl 1.4 mg/dL 1.8 - 2.4 06/10 [facility] CHEMISTRY Phosphorus 1.9 mg/dL 2.5 - 4.5 06/10 [facility] CHEMISTRY Tacrolimus 11.2 ng/mL 5.0 - 15.0 06/10 Normal [facility] HEMATOLOGY MCH 30.3 pg 27.0 - 06/10 Normal [facility] 31.0 [facility] Center HEMATOLOGY Hct 23.5 % 36.0 - 06/10 [facility] 48.0 [facility] HEMATOLOGY Hgb 7.8 g/dL 12.0 - 06/10 [facility] 16.0 [facility] HEMATOLOGY WBC X 10x3 5.9 K/CMM 3.7 - 10.4 06/10 [facility] HEMATOLOGY RBC X 10x6 2.59 M/CMM 4.20 - 06/10 [facility] 5.40 /2012 [facility] HEMATOLOGY RDW 16.0 % 11.5 - 06/10 [facility] 14.5 [facility] HEMATOLOGY MCHC 33.3 g/dL 32.0 - 06/10 Normal [facility] 36.0 [facility] Center HEMATOLOGY MCV 90.9 fL 81.0 - 06/10 Normal [facility] 99.0 [facility] HEMATOLOGY MPV 10.2 fL 7.4 - 10.4 06/10 Normal [facility] HEMATOLOGY Platelet 64 K/CMM 133 - 450 06/10 LOW [facility] HEMATOLOGY Monocytes # 0.2 K/CMM 0.0 - 0.8 06/10 Normal [facility] HEMATOLOGY Segs 93.6 % 45.0 - 06/10 [place] 75.0 /2012 [facility] HEMATOLOGY Monocytes 2.8 % 2.0 - 12.0 06/10 Normal [facility] HEMATOLOGY Segs-Bands # 5.5 K/CMM 1.5 - 8.1 06/10 Normal [facility] HEMATOLOGY Lymphocytes # 0.2 K/CMM 1.0 - 5.5 06/10 LOW [facility] HEMATOLOGY Eosinophils 0.2 % 0.0 - 4.0 06/10 Normal [facility] HEMATOLOGY Basophils 0.4 % 0.0 - 1.0 06/10 Normal [facility] HEMATOLOGY Lymphocytes 3.0 % 20.0 - 06/10 [facility] 40.0 [facility] BEDSIDE Gluc POC Notified 06/09 [facility] GLUCOSE Comment 1 RN/MD /2012 [facility] CHEMISTRY Tacrolimus 12.2 ng/mL 5.0 - 15.0 06/09 Normal [facility] Lvl /2012 [facility] CHEMISTRY Phosphorus 1.5 mg/dL 2.5 - 4.5 06/09 CRIT 12Result Comment: [facility] Result(s) called to Marcos Mehta at 06/09/2013 08:57 by [email or web address]. Read back OK. CHEMISTRY Magnesium Lvl 1.2 mg/dL 1.8 - 2.4 06/09 LOW [facility] CHEMISTRY eGFR 60 06/09 7Result Comment: The eGFR is calculated using the CKD-EPI formula. In most young, healthy individuals the eGFR will be >90 mL/ min/1.73m2. The eGFR declines with age. An eGFR of 60-89 may be normal in [facility] mL/min/1. some populations, particularly the elderly, for whom the CKD-EPI formula has not been extensively validated. Use of the eGFR is not recommended in the following populations: [facility] Individuals with unstable creatinine concentrations, including patients and those with serious co-morbid conditions. Patients with extremes in muscle mass or diet. The data above are obtained from the National Kidney Disease Education Program (NKDEP) which additionally recommends that when the eGFR is used in patients with extremes of body mass index for purposes of drug dosing, the eGFR should be multiplied by the estimated BMI. CHEMISTRY Sodium Lvl 145 meq/L 135 - 145 06/09 Normal [facility] CHEMISTRY Creatinine 1.1 mg/dL 0.5 - 1.4 06/09 Normal [facility] l [facility] CHEMISTRY Potassium Lvl 4.0 meq/L 3.5 - 5.1 06/09 Normal [facility] CHEMISTRY BUN 21 mg/dL 7 - 22 06/09 Normal [facility] CHEMISTRY Glucose Lvl 137 mg/dL 70 - 99 06/09 [place] 10Interpretive Data: Adult reference range values reflect the clinical guidelines of the [place] [employer]. [facility] CHEMISTRY Calcium Lvl 8.4 mg/dL 8.5 - 10.5 06/09 [facility] CHEMISTRY CO2 20 meq/L 24 - 32 06/09 [facility] CHEMISTRY Chloride Lvl 115 meq/L 95 - 109 06/09 [facility] CHEMISTRY AGAP 14.0 meq/L 10.0 - 06/09 [facility] 20.0 [facility] HEMATOLOGY Monocytes # 0.1 K/CMM 0.0 - 0.8 06/09 [facility] HEMATOLOGY Eosinophils 0.9 % 0.0 - 4.0 06/09 [facility] HEMATOLOGY Monocytes 3.6 % 2.0 - 12.0 06/09 Normal [facility] HEMATOLOGY Lymphocytes # 0.2 K/CMM 1.0 - 5.5 06/09 [facility] HEMATOLOGY Segs-Bands # 3.6 K/CMM 1.5 - 8.1 06/09 [facility] HEMATOLOGY Segs 91.3 % 45.0 - 06/09 [facility] [place] 75.0 [facility] HEMATOLOGY Basophils 0.1 % 0.0 - 1.0 06/09 [facility] HEMATOLOGY Lymphocytes 4.1 % 20.0 - 06/09 [facility] 40.0 [facility] HEMATOLOGY MPV 10.6 fL 7.4 - 10.4 06/09 [facility] HEMATOLOGY Platelet 50 K/CMM 133 - 450 12/30 LOW /2012 [facility] HEMATOLOGY WBC X 10x3 4.0 K/CMM 3.7 - 10.4 06/09 Normal /2012 [facility] HEMATOLOGY RBC X 10x6 2.44 M/CMM 4.20 - 12 [facility] 5.40 /2012 [facility] HEMATOLOGY MCH 30.9 pg 27.0 - 06/09 Normal [facility] 31.0 /2012 [facility] HEMATOLOGY MCHC 33.9 g/dL 32.0 - 06/09 Normal [facility] 36.0 /2012 [facility] HEMATOLOGY RDW 15.9 % 11.5 - 06/09 [place] [facility] 14.5 /2012 [facility] HEMATOLOGY Hct 22.2 % 36.0 - 06/09 [facility] 48.0 /2012 [facility] HEMATOLOGY Hgb 7.5 g/dL 12.0 - 06/09 [facility] 16.0 [facility] HEMATOLOGY MCV 91.3 fL 81.0 - 06/09 Normal [facility] 99.0 /2012 [facility] Renal Renal EXAM: US RENAL TRANSPLANT WITH DOPPLER 06/05 - [facility] transplant transplant - [facility] US This report was dictated by a Glove Pairer/Fellow. I have personally reviewed the images as Center well as the Resident's interpretation and agree with the findings. DATE: 06/05/2013. Read by: Tika Luis Resident: Tika Luis Dictated Date/time: 06/05/13 12:42 Electronically Signed by: Alvarado Bear MD 06/05/13 14:26 FINAL REPORT INDICATION: Hematuria. ADDITIONAL INFORMATION: Patient status post renal transplant 05/23/2013 and renal transplant biopsy 1224 and 13.. COMPARISON: Renal ultrasound 05/30/2013. TECHNIQUE: Multiplanar grayscale, color Doppler and spectral Doppler ultrasound images of the right lower quadrant heterotopic renal transplant and urinary bladder were obtained. FINDINGS: A 10.6 x 5.5 x 5.7 cm right lower quadrant transplant is normal in echogenicity is seen. There is no hydronephrosis. Note is made of a small isoechoic, avascular exophytic lesion along the inferior pole of the right transplanted kidney likely present a small hematoma from the recent biopsy measuring 0.8 x 0.9 x 0.8 cm. No large perinephric fluid collection is identified. The bladder is partially distended . Ureteric stent is seen. There is a complex fluid seen just inferior to the stent catheter likely representing hematoma. Doppler evaluation limited normal color-flow perfusion of the transplanted kidney Main renal artery the peak systolic velocity is 72.3 cm/sec. RA:IA ratio is within normal limits. Main renal vein is patent.. Intrarenal resistive indices are 0.6, 0.65, and 0.63 in the superior, mid and inferior kidney, respectively. IMPRESSION: 1. Small, 0.9 cm lesion along the inferior pole of the transplanted kidney likely is a hematoma related to recent biopsy. 2. Bladder hematoma.. CHEMISTRY Ca Norm WB 1.15 1.05 - 06/05 Normal [facility] mMol/L . [facility] CHEMISTRY Ca Ion WB 1.13 1.05 - 06/05 Normal [facility] mMol/L . [facility] HEMATOLOGY Plt Morph Normal 06/05 Normal [facility] (06/05/2013 04:10:00) [place] HEMATOLOGY Polychrom Slight None Seen 06/05 Normal [facility] (06/05/2013 04:10:00) [place] HEMATOLOGY Elliptocyte Slight None Seen 06/05 [facility] (06/05/2013 04:10:00) URINALYSIS UA <=1.0 0.1 - 1.0 06/05 [facility] Urobilinogen mg/dL [facility] URINALYSIS UA Blood Large Negative 06/05 [facility] (06/05/2013 04:10:00) URINALYSIS UA WBC 17 /HPF 0 - 5 06/05 [facility] URINALYSIS UA Leuk Est Small Negative 06/05 [facility] (06/05/2013 04:10:00) URINALYSIS UA RBC null 0 - 2 06/05 [facility]2012 [facility] URINALYSIS UA Nitrite Negative Negative 06/05 Normal [facility]2012 [facility] (06/05/2013 04:10:00) [place] URINALYSIS UA Bacteria Occasional None Seen 06/05 [facility] URINALYSIS UA Sq Epi None Seen 06/05 [facility]2012 [facility] URINALYSIS UA Spec Grav 1.014 <=1.030 06/05 Normal [facility]2012 [facility] URINALYSIS UA Turbidity Slight Clear 06/05 ABN [facility] *ABN* [place] (06/05/2013 04:10:00) URINALYSIS UA Color Red Yellow 06/05 [facility] *ABN* [place] (06/05/2013 04:10:00) URINALYSIS UA Bili Negative Negative 06/05 [facility] *NA* [place] (06/05/2013 04:10:00) URINALYSIS UA pH 6.0 5.0 - 8.0 06/05 Normal [facility] URINALYSIS UA Protein 70 mg/dL Negative 06/05 ABN [facility] URINALYSIS UA Glucose >=1000 Negative 06/05 [facility] mg/dL [facility] URINALYSIS UA Ketones Negative Negative 06/05 [facility] mg/dL [facility] BACTERIAL - MRSA by PCR Negative 1 06/05 Normal 1Interpretive Data: Interpretive Data: The [employer] LightCycler MRSA assay is a qualitative test for the direct detection of nasal colonization with methicillin-resistant Staphylococcus aureus (MRSA) to aid [facility] in the prevention and control of MRSA infections in healthcare settings. A positive result does not indicate an infection or require treatment. A negative result does not exclude colonization or infection. [facility] (06/04/2013 20:41:47) [place] The polymerase chain reaction (PCR) assay detects a proprietary sequence indicative of the integration of the SCCmec cassette into the Staphylococcus aureus chromosome, indicating the presence of MRSA D NA. The assay utilizes FDA cleared IVD reagents. Performance characteristics have been verified by the [facility] within the [facility]. The [facility] atory is authorized under the Clinical Laboratory Improvement Amendment of 1988 (CLIA-88) to perform high complexity testing. Chest 1view Chest 1view EXAM: CHEST 1 VIEW 06/04 - - [facility] DATE: Jun 04, 2013 02:02:00 PM Read by: Afshan Garcia Dictated Date/time: 06/05/13 02:36 Electronically Signed by: Afshan Garcia MD 06/05/13 02:39 FINAL REPORT INDICATION: Line Placement COMPARISON: May 24, 2013 at 0048 hours TECHNIQUE: A single portable view of the chest FINDINGS: A right jugular center venous catheter is in place with distal tip projecting at atrial caval junction. There is no evidence of pneumothorax or intrathoracic complication following line place ment. Although, a semierect portal view the chest is limited for that determination. Lung volume has slightly improved. However, bibasilar opacities have increased, left greater than right. In addition bilateral interstitial opacities are present due singly or in combination to edema or pneumonia. Atypical infections should be considered. Left effusion is present. Right costophrenic recess is sharp without pleural effusion. Cardiomediastinal silhouette is stable. Osseous structures remain intact. IMPRESSION: 1. Right jugular central venous catheter is in place with distal tip projecting at atrial caval junction. 2. Bibasilar opacities have increased, left greater than right. These may be due singly or in combination to atelectasis or early pneumonia. 3. Increased bilateral interstitial opacities concerning for edema or pneumonia. Atypical infection is within the differential of this pattern. 4. Small left effusion CHEMISTRY U Protein 44.0 mg/dL 06/04 14Interpretiv e Data: No [facility] Center reference ranges. CHEMISTRY U Creatinine 24.1 mg/dL 06/03 13Interpretiv e Data: No [facility] Center reference ranges. URINALYSIS UA <=1.0 0.1 - 1.0 06/03 [facility] Urobilinogen mg/dL [facility] URINALYSIS UA RBC 1 /HPF 0 - 2 06/03 Normal [facility] URINALYSIS UA Color Light Yellow Yellow 06/03 [facility] *NA* [place] (06/03/2013 10:13:20) URINALYSIS UA Turbidity Clear Clear 06/03 Normal [facility] (06/03/2013 10:13:20) [place] URINALYSIS UA Blood Negative Negative 06/03 Normal [facility] (06/03/2013 10:13:20) [place] URINALYSIS UA WBC 1 /HPF 0 - 5 06/03 Normal [facility] URINALYSIS UA Sq Epi Occasional Few 06/03 [facility] URINALYSIS UA Leuk Est Negative Negative 06/03 Normal [facility] (06/03/2013 10:13:20) [place] URINALYSIS UA Nitrite Negative Negative 06/03 Normal [facility] (06/03/2013 10:13:20) [place] URINALYSIS UA Protein Negative Negative 06/03 Normal [facility] mg/dL [facility] URINALYSIS UA pH 7.0 5.0 - 8.0 06/03 Normal [facility] URINALYSIS UA Spec Grav 1.008 <=1.030 06/03 Normal [facility] URINALYSIS UA Bili Negative Negative 06/03 Medical *NA* Center (06/03/2013 10:13:20) URINALYSIS UA Ketones Negative Negative 06/03 [facility] mg/dL [facility] URINALYSIS UA Glucose 150 mg/dL Negative 06/03 ABN [facility] CHEMISTRY B/C Ratio 21 6 - 25 06/03 Normal [facility] CHEMISTRY ASPARTATE 35 unit/L 0 - 37 06/03 Normal [facility] CHEMISTRY Alk Phos 101 unit/L 39 - 136 06/03 Normal [facility] CHEMISTRY Bili Total 0.3 mg/dL 0.2 - 1.3 06/03 Normal [facility] CHEMISTRY Total Protein 6.3 g/dL 6.4 - 8.4 06/03 LOW [facility] CHEMISTRY Albumin Lvl 3.7 g/dL 3.5 - 5.0 06/03 Normal [facility] CHEMISTRY ALANINE 100 unit/L 0 - 65 06/03 HI [facility] AMINOTRANSFER [facility] CHEMISTRY Globulin 2.6 g/dL 2.0 - 4.0 06/03 Normal [facility] CHEMISTRY A/G Ratio 1.4 0.7 - 1.6 06/03 Normal [facility] HEMATOLOGY INR 1.06 0.85 - 06/03 Normal 15Interpretive Data: RECOMMENDED RANGES FOR PROTIME INR: [facility] 1. 2.0-3.0 for most medical and surgical thromboembolic states. Medical 2.5-3.5 for artificial heart valves and recurrent embolism. Center INR SHOULD BE USED ONLY FOR PATIENTS ON STABLE ANTICOAGULANT THERAPY. HEMATOLOGY aPTT 29.1 s 22.9 - 06/03 Normal 16Interpretiv [facility] 35.8 /2012 e Data: [facility] Therapeutic Range: 57 - 92 Second[facility] HEMATOLOGY PROTIME 13.7 s 12.0 - 06/03 Normal [facility] 14.7 [facility] IMMUNOLOGY IgA Lvl 163.0 68.0 - 06/03 Normal [facility] mg/dL 378.0 [facility] BEDSIDE Glucose POC 152 mg/dL 70 - 99 06/02 [place] 2Interpretive [facility] GLUCOSE Data: Medical TESTING Center Upper Reportable Limit: 200 mg/dL. BEDSIDE Glucose POC 134 mg/dL - 06/02 [place] 3Interpretive [facility] GLUCOSE Data: [facility] Upper Reportable Limit: 200 mg/dL. CHEMISTRY eGFR 41 06/02 5Result Comment: The eGFR is calculated using the CKD-EPI formula. In most young, healthy individuals the eGFR will be >90 mL/ min/1.73m2. The eGFR declines with age. An eGFR of 60-89 may be normal in [facility] mL/min/1.7 some populations, particularly the elderly, for whom the CKD-EPI formula has not been extensively validated. Use of the eGFR is not recommended in the following populations: [facility] Individuals with unstable creatinine concentrations, including patients and those with serious co-morbid conditions. Patients with extremes in muscle mass or diet. The data above are obtained from the National Kidney Disease Education Program (NKDEP) which additionally recommends that when the eGFR is used in patients with extremes of body mass index for purposes of drug dosing, the eGFR should be multiplied by the estimated BMI. CHEMISTRY CO2 22 meq/L 24 - 32 06/02 LOW [facility] CHEMISTRY Chloride Lvl 106 meq/L 95 - 109 06/02 Normal [facility] CHEMISTRY Calcium Lvl 8.7 mg/dL 8.5 - 10.5 06/02 Normal [facility] CHEMISTRY AGAP 14.2 meq/L 10.0 - 06/02 Normal [facility] 20.0 [facility] CHEMISTRY Glucose Lvl 142 mg/dL 70 - 99 06/02 [place] 8Interpretive Data: Adult reference range values reflect the clinical guidelines of the [place] [employer]. [facility] CHEMISTRY BUN 28 mg/dL 7 - 22 06/02 HI [facility] CHEMISTRY Creatinine 1.5 mg/dL 0.5 - 1.4 06/02 [facility] Lvl [facility] CHEMISTRY Sodium Lvl 138 meq/L 135 - 145 06/02 Normal [facility] CHEMISTRY Potassium Lvl 4.2 meq/L 3.5 - 5.1 06/02 Normal [facility] CHEMISTRY Magnesium Lvl 1.8 mg/dL 1.8 - 2.4 06/02 Normal [facility] CHEMISTRY Tacrolimus 9.2 ng/mL 5.0 - 15.0 06/02 Normal [facility] Lvl [facility] CHEMISTRY Phosphorus 2.5 mg/dL 2.5 - 4.5 06/02 Normal [facility] HEMATOLOGY MPV 9.5 fL 7.4 - 10.4 06/02 Normal [facility] HEMATOLOGY Platelet 118 K/CMM 133 - 450 06/02 LOW [facility] HEMATOLOGY Hgb 8.2 g/dL 12.0 - 06/02 [facility] 16.0 [facility] HEMATOLOGY RBC X 10x6 2.70 M/CMM 4.20 - 06/02 [facility] 5.40 /2012 [facility] HEMATOLOGY Hct 23.9 % 36.0 - 06/02 [facility] 48.0 [facility] HEMATOLOGY MCHC 34.4 g/dL 32.0 - 06/02 Normal [facility] 36.0 [facility] HEMATOLOGY RDW 14.2 % 11.5 - 06/02 [facility] 14.5 [facility] HEMATOLOGY MCV 88.6 fL 81.0 - 06/02 [facility] 99.0 [facility] HEMATOLOGY MCH 30.5 pg 27.0 - 06/02 [facility] 31.0 /2012 [facility] HEMATOLOGY WBC X 10x3 5.0 K/CMM 3.7 - 10.4 06/02 Normal [facility] HEMATOLOGY Segs 86.9 % 45.0 - 06/02 [facility] [place] 75.0 [facility] HEMATOLOGY Lymphocytes 10.0 % 20.0 - 06/02 [facility] 40.0 /2012 [facility] HEMATOLOGY Monocytes # 0.2 K/CMM 0.0 - 0.8 06/02 Normal [facility] HEMATOLOGY Lymphocytes # 0.5 K/CMM 1.0 - 5.5 06/02 [facility] HEMATOLOGY Segs-Bands # 4.3 K/CMM 1.5 - 8.1 06/02 Normal [facility] HEMATOLOGY Basophils 0.1 % 0.0 - 1.0 06/02 Normal [facility] HEMATOLOGY Monocytes 3.0 % 2.0 - 12.0 06/02 Normal [facility] BEDSIDE Glucose POC 169 mg/dL 70 - 99 06/02 [place] 4Interpretive [facility] GLUCOSE Data: [facility] Upper Reportable Limit: 200 mg/dL. BEDSIDE Gluc POC Notified 06/02 [facility] GLUCOSE Comment 1 ANA MARIA 2013 [facility] BEDSIDE Gluc POC Notified 06/01 [facility] GLUCOSE Comment 1 VINITA/ 2013 [facility] CHEMISTRY AGAP 15.2 meq/L 10.0 - 06/01 Normal [facility] 20.0 [facility] CHEMISTRY CO2 23 meq/L 24 - 32 06/01 LOW [facility] CHEMISTRY Chloride Lvl 102 meq/L 95 - 109 06/01 Normal [facility] CHEMISTRY Calcium Lvl 8.7 mg/dL 8.5 - 10.5 06/01 Normal [facility] CHEMISTRY eGFR 26 06/01 6Result Comment: The eGFR is calculated using the CKD-EPI formula. In most young, healthy individuals the eGFR will be >90 mL/ min/1.73m2. The eGFR declines with age. An eGFR of 60-89 may be normal in [facility] mL/min/1.7 some populations, particularly the elderly, for whom the CKD-EPI formula has not been extensively validated. Use of the eGFR is not recommended in the following populations: [place] [address] Center Individuals with unstable creatinine concentrations, including patients and those with serious co-morbid conditions. Patients with extremes in muscle mass or diet. The data above are obtained from the National Kidney Disease Education Program (NKDEP) which additionally recommends that when the eGFR is used in patients with extremes of body mass index for purposes of drug dosing, the eGFR should be multiplied by the estimated BMI. CHEMISTRY Creatinine 2.2 mg/dL 0.5 - 1.4 06/01 [facility] Lvl [facility] CHEMISTRY Sodium Lvl 136 meq/L 135 - 145 06/01 Normal [facility] CHEMISTRY Glucose Lvl 246 mg/dL 70 - 99 06/01 [place] 9Interpretive Data: Adult reference range values reflect the clinical guidelines of the [place] [employer]. [facility] CHEMISTRY BUN 43 mg/dL 7 - 06/01 [place] [facility] CHEMISTRY Potassium Lvl 4.2 meq/L 3.5 - 5.1 06/01 Normal [facility] CHEMISTRY Magnesium Lvl 2.0 mg/dL 1.8 - 2.4 06/01 Normal [facility] CHEMISTRY Phosphorus 2.7 mg/dL 2.5 - 4.5 06/01 Normal [facility] CHEMISTRY Tacrolimus 6.6 ng/mL 5.0 - 15.0 06/01 Normal [facility] Lvl /2012 [facility] HEMATOLOGY RBC X 10x6 2.66 M/CMM 4.20 - 12 [facility] 5.40 /2012 [facility] HEMATOLOGY WBC X 10x3 4.3 K/CMM 3.7 - 10.4 06/01 Normal [facility] HEMATOLOGY Hct 23.3 % 36.0 - 06/01 [facility] [facility] 48.0 [facility] HEMATOLOGY Hgb 7.9 g/dL 12.0 - 06/01 [facility] 16.0 [facility] HEMATOLOGY MCH 29.7 pg 27.0 - 06/01 Normal [facility] 31.0 [facility] HEMATOLOGY MCV 87.4 fL 81.0 - 06/01 [facility] 99.0 [facility] HEMATOLOGY RDW 14.2 % 11.5 - 06/01 Normal [facility] 14.5 [facility] HEMATOLOGY MPV 9.5 fL 7.4 - 10.4 06/01 Normal [facility] HEMATOLOGY Platelet 135 K/CMM 133 - 450 06/01 Normal [facility] HEMATOLOGY MCHC 34.0 g/dL 32.0 - 06/01 [facility] 36.0 /2012 [facility] HEMATOLOGY Eosinophils 0.1 % 0.0 - 4.0 06/01 Normal [facility] HEMATOLOGY Lymphocytes 10.0 % 20.0 - 06/01 [facility] 40.0 /2012 [facility] HEMATOLOGY Segs 84.0 % 45.0 - 06/01 [facility] 75.0 /2012 [facility] HEMATOLOGY Monocytes 5.8 % 2.0 - 12.0 06/01 Normal [facility] HEMATOLOGY Segs-Bands # 3.6 K/CMM 1.5 - 8.1 06/01 Normal [facility] HEMATOLOGY Basophils 0.1 % 0.0 - 1.0 06/01 Normal [facility] HEMATOLOGY Monocytes # 0.2 K/CMM 0.0 - 0.8 06/01 Normal [facility] HEMATOLOGY Lymphocytes # 0.4 K/CMM 1.0 - 5.5 06/01 LOW [facility] BEDSIDE Gluc POC Notified 05/31 [facility] GLUCOSE Comment 1 RN/ [facility] TESTING Center CHEMISTRY U Prot/Creat 0.6 05/31 [facility] CHEMISTRY U Creatinine 61.3 mg/dL 05/31 11Interpretiv e Data: No [facility] Center reference ranges. CHEMISTRY U Protein 36.3 mg/dL 05/31 12Interpretiv e Data: No [facility] reference ranges. URINALYSIS UA <=1.0 0.1 - 1.0 05/31 [facility] Urobilinogen mg/dL [facility] URINALYSIS UA Sq Epi None Seen 05/31 [facility] URINALYSIS UA Mucus Few /LPF None Seen 05/31 [facility] URINALYSIS UA Protein 20 mg/dL Negative 05/31 ABN [facility] URINALYSIS UA Glucose Negative Negative 05/31 [facility] mg/dL [facility] URINALYSIS UA pH 5.5 5.0 - 8.0 05/31 Normal [facility] URINALYSIS UA Spec Grav 1.007 <=1.030 05/31 Normal [facility] URINALYSIS UA Color Light Yellow Yellow 05/31 [facility] *NA* [place] (05/31/2013 10:20:00) URINALYSIS UA Turbidity Clear Clear 05/31 Normal [facility] (05/31/2013 10:20:00) Center URINALYSIS UA Bacteria Occasional None Seen 05/31 [facility] URINALYSIS UA Leuk Est Negative Negative 05/31 Normal [facility] (05/31/2013 10:20:00) Center URINALYSIS UA RBC 4 /HPF 0 - 2 05/31 HI [facility] URINALYSIS UA WBC 3 /HPF 0 - 5 05/31 Normal [facility] URINALYSIS UA Nitrite Negative Negative 05/31 Normal [facility] (05/31/2013 10:20:00) Center URINALYSIS UA Blood Moderate Negative 05/31 ABN [facility] *ABN* Center (05/31/2013 10:20:00) URINALYSIS UA Bili Negative Negative 05/31 [facility] *NA* Center (05/31/2013 10:20:00) URINALYSIS UA Ketones Negative Negative 05/31 [facility] mg/dL [facility] CHEMISTRY AGAP 16.8 meq/L 10.0 - 05/31 Normal [facility] 20.0 [facility] CHEMISTRY eGFR 15 05/31 7Result Comment: The eGFR is calculated using the CKD-EPI formula. In most young, healthy individuals the eGFR will be >90 mL/ min/1.73m2. The eGFR declines with age. An eGFR of 60-89 may be normal in [facility] mL/min/1.7 some populations, particularly the elderly, for whom the CKD-EPI formula has not been extensively validated. Use of the eGFR is not recommended in the following populations: [address] Individuals with unstable creatinine concentrations, including patients and those with serious co-morbid conditions. Patients with extremes in muscle mass or diet. The data above are obtained from the National Kidney Disease Education Program (NKDEP) which additionally recommends that when the eGFR is used in patients with extremes of body mass index for purposes of drug dosing, the eGFR should be multiplied by the estimated BMI. CHEMISTRY Sodium Lvl 138 meq/L 135 - 145 05/31 Normal [facility] CHEMISTRY Potassium Lvl 3.8 meq/L 3.5 - 5.1 05/31 Normal [facility] CHEMISTRY Calcium Lvl 9.0 mg/dL 8.5 - 10.5 05/31 Normal [facility] CHEMISTRY CO2 16 meq/L 24 - 32 05/31 LOW [facility] CHEMISTRY Chloride Lvl 109 meq/L 95 - 109 05/31 Normal [facility] CHEMISTRY Creatinine 3.4 mg/dL 0.5 - 1.4 05/31 [facility] CHEMISTRY BUN 64 mg/dL 7 - 22 05/31 [facility]2012 [facility] CHEMISTRY Glucose Lvl 82 mg/dL 70 - 99 05/31 Normal 10Interpretive Data: Adult reference range values reflect the clinical guidelines of the [place] [employer]. [facility] HEMATOLOGY PB Smear Path Peripheral 05/31 [facility] blood [facility] smear Center shows hypochromi c anemia with anisopoiki locytosis, slight polychroma syl. Impression : iron deficiency anemia vs. anemia of chronic disease. CPT: 60935 IMMUNOLOGY Haptoglobin 159 mg/dL 16 - 200 05/31 Normal [facility] INFECTIOUS CMV PCR Qnt Negative Negative 05/31 Normal [facility] (05/31/2013 10:00:00) Center INFECTIOUS CMV PCR Qnt null 05/31 1Interpretive Data: Analytic Quantification Range: 250-2,500,000 copies/mL (2.4-6.4 log) [facility] (log) Medical CMV DNA detected below 250 copies/mL will be resulted as "CMV DNA Center detected, less than 250 copies/mL." No target CMV DNA detected will be reported as "CMV DNA not detected." A negative result does not rule out the possibility of the presence of Cytomegalovirus. The specimen may contain CMV below the detectable limits of the assay. The human Cytomegalovirus (CMV) is a DNA virus belonging to the herpes virus family. The CMV Virus assay targets a 105 base pair region of the CMV virus genome. This assay utilizes analyte specific (ASR) reagents for Real-Time nucleic acid amplification (PCR). Results should not be used as the sole basis for clinical diagnosis, treatment or patient management. Performance characteristics have been verified by the [facility] within [facility]. The Molecular Diagnostic Laboratory is authorized under the Clinical Laboratory Improve ment Amendments of 1988 (CLIA-88) to perform high complexity testing. INFECTIOUS Source CMV Blood 05/31 [facility] PCR Qnt /2012 Medical *NA* Center (05/31/2013 10:00:00) CHEMISTRY Tacrolimus 15.4 ng/mL 5.0 - 15.0 05/31 [facility] /2012 [facility] CHEMISTRY Phosphorus 3.7 mg/dL 2.5 - 4.5 05/31 Normal [facility] CHEMISTRY Magnesium Lvl 2.2 mg/dL 1.8 - 2.4 05/31 Normal [facility] CHEMISTRY Globulin 2.4 g/dL 2.0 - 4.0 05/31 Normal [facility]2012 [facility] CHEMISTRY Bili Indirect 0.2 mg/dL 0.0 - 1.0 05/31 Normal [facility]2012 [facility] CHEMISTRY A/G Ratio 1.3 0.7 - 1.6 05/31 Normal [facility]2012 [facility] CHEMISTRY Albumin Lvl 3.2 g/dL 3.5 - 5.0 05/31 LOW [facility] CHEMISTRY Bili Direct 0.1 mg/dL 0.0 - 0.3 05/31 Normal [facility] CHEMISTRY Alk Phos 78 unit/L 39 - 136 05/31 Normal [facility] CHEMISTRY Bili Total 0.3 mg/dL 0.2 - 1.3 05/31 Normal [facility] CHEMISTRY ASPARTATE 25 unit/L 0 - 37 05/31 Normal [facility] CHEMISTRY Total Protein 5.6 g/dL 6.4 - 8.4 05/31 LOW [facility] CHEMISTRY ALANINE 62 unit/L 0 - 65 05/31 Normal [facility] AMINO [facility] HEMATOLOGY Basophils 0.3 % 0.0 - 1.0 05/31 Normal [facility] HEMATOLOGY Segs-Bands # 3.0 K/CMM 1.5 - 8.1 05/31 Normal [facility] HEMATOLOGY Lymphocytes # 0.8 K/CMM 1.0 - 5.5 05/31 [facility] HEMATOLOGY Eosinophils # 0.1 K/CMM 0.0 - 0.5 05/31 Normal [facility] HEMATOLOGY Monocytes # 0.4 K/CMM 0.0 - 0.8 05/31 [facility] HEMATOLOGY Lymphocytes 18.0 % 20.0 - 05/31 [facility] 40.0 [facility] HEMATOLOGY Monocytes 10.1 % 2.0 - 12.0 05/31 [facility] HEMATOLOGY Eosinophils 1.6 % 0.0 - 4.0 05/31 Normal [facility] HEMATOLOGY Segs 70.0 % 45.0 - 05/31 [facility] [place] 75.0 [facility] HEMATOLOGY Platelet 143 K/CMM 133 - 450 05/31 [facility] HEMATOLOGY MPV 9.2 fL 7.4 - 10.4 05/31 [facility] HEMATOLOGY RDW 14.1 % 11.5 - 05/31 [facility] 14.5 [facility] HEMATOLOGY MCV 87.4 fL 81.0 - 05/31 [facility] 99.0 [facility] HEMATOLOGY MCHC 34.2 g/dL 32.0 - 05/31 [facility] 36.0 Medical Center HEMATOLOGY MCH 29.9 pg 27.0 - 05/31 Normal [facility] 31.0 /2012 [facility] HEMATOLOGY RBC X 10x6 2.84 M/CMM 4.20 - 05/31 LOW [facility] 5.40 /2013 [facility] HEMATOLOGY WBC X 10x3 4.3 K/CMM 3.7 - 10.4 05/31 Normal [facility] HEMATOLOGY Hgb 8.5 g/dL 12.0 - 05/31 LOW [facility] 16.0 /2012 [facility] HEMATOLOGY Hct 24.8 % 36.0 - 05/31 LOW [facility] 48.0 /2013 [facility] HEMATOLOGY aPTT 32.8 s 22.9 - 05/31 Normal 13Interpretiv [facility] 35.8 /2012 e Data: [facility] Therapeutic Range: 57 - 92 Seconds URINALYSIS UA RBC 10 /HPF 0 - 2 05/30 [facility] /2012 [facility] Renal Renal EXAM: US RENAL TRANSPLANT WITH DOPPLER 05/30 - [facility] transplant transplant - [facility] US This report was dictated by a Glove Pairer/Fellow. I have personally reviewed the images as Center well as the Resident's interpretation and agree with the findings. DATE: 05/30/2013 at 1124. Read by: Veronica Jalloh Resident: Veronica Jalloh Dictated Date/time: 05/30/13 13:25 Electronically Signed by: Marcellus Booker MD 05/30/13 17:37 FINAL REPORT INDICATION: Status post renal transplant 05/23/2013, elevated creatinine. COMPARISON: Ultrasound renal transplant 05/24/2013. TECHNIQUE: Multiplanar grayscale, color Doppler and spectral Doppler ultrasound images of the right lower quadrant heterotopic renal transplant and urinary bladder were obtained. FINDINGS: A 10.8 x 5.5 x 5.3 centimeter right lower quadrant transplant is normal in echogenicity with no focal mass, calculus, or perinephric collection. No hydronephrosis is seen. Doppler evaluation demonstrates normal color-flow perfusion. Main renal artery velocity is 139 cm/sec. RA:IA ratio is 0.8. Intrarenal resistive indices are 0.76, 0.76, and 0.81 in the superior, mid and inferior kidney, respectively. Main renal vein is patent. Urinary bladder is unremarkable. IMPRESSION: No significant abnormalities. HEMATOLOGY Elliptocyte Slight None Seen 05/29 ABN [facility] *[facility]* [place] (05/29/2013 09:20:00) HEMATOLOGY Large Plt Slight None Seen 05/29 ABN [facility]* [place] (05/29/2013 09:20:00) URINALYSIS UA Hyal Cast 2 /LPF 0 - 2 05/29 Normal [facility] URINALYSIS UA Gran Cast 3 /LPF 05/29 [facility] URINALYSIS UA RBC null 0 - 2 05/29 HI [facility] URINALYSIS UA Bacteria Occasional None Seen 05/29 [facility] /[facility] URINALYSIS UA Mucus Few /LPF None Seen 05/29 [facility] URINALYSIS UA Amorph Occasional None Seen 05/29 [facility] Knee series Knee series EXAM: XR RIGHT KNEE 3 VIEWS 05/29 - - Medical EXAM: XR LEFT KNEE 3 VIEWS Center Read by: Jessica Young Dictated Date/time: 05/29/13 12:39 DATE: 2013-05-29 11:59:00 Electronically Signed by: Jessica Young MD 05/29/13 12:41 FINAL REPORT INDICATION: Bilateral knee pain. DATA: Patient with history of renal transplant, suspected avascular necrosis. COMPARISON: None available TECHNIQUE: AP, lateral and oblique radiographs of the right and left knee FINDINGS: No fracture, dislocation or other acute bony abnormality is identified. There is no subchondral sclerosis, cystic change or subchondral collapse to indicate the presence of avascular necrosis radiographically. There is generalized osteopenia. There is a small right knee joint effusion. IMPRESSION: Generalized osteopenia and small right knee joint effusion, without radiographic evidence of avascular necrosis on either side. MRI is more sensitive in this diagnosis if clinically indicated. Knee series Knee series EXAM: XR RIGHT KNEE 3 VIEWS 05/29 - - Medical EXAM: XR LEFT KNEE 3 VIEWS Center Read by: Jessica Young Dictated Date/time: 05/29/13 12:39 DATE: 2013-05-29 11:59:00 Electronically Signed by: Jessica Young MD 05/29/13 12:41 FINAL REPORT INDICATION: Bilateral knee pain. DATA: Patient with history of renal transplant, suspected avascular necrosis. COMPARISON: None available TECHNIQUE: AP, lateral and oblique radiographs of the right and left knee FINDINGS: No fracture, dislocation or other acute bony abnormality is identified. There is no subchondral sclerosis, cystic change or subchondral collapse to indicate the presence of avascular necrosis radiographically. There is generalized osteopenia. There is a small right knee joint effusion. IMPRESSION: Generalized osteopenia and small right knee joint effusion, without radiographic evidence of avascular necrosis on either side. MRI is more sensitive in this diagnosis if clinically indicated. BEDSIDE Glucose POC 171 mg/dL 70 - 99 05/27 [place] 2Interpretive [facility] GLUCOSE Data: Medical TESTING Center Upper Reportable Limit: 200 mg/dL. BEDSIDE Glucose POC 100 mg/dL 70 - 99 05/27 [place] 3Interpretive [facility] GLUCOSE Data: Medical TESTING Center Upper Reportable Limit: 200 mg/dL. BEDSIDE Glucose POC 161 mg/dL 70 - 99 05/27 [place] 4Interpretive [facility] GLUCOSE Data: Medical TESTING Center Upper Reportable Limit: 200 mg/dL. BEDSIDE Gluc POC Notify 05/27 [facility] GLUCOSE Comment 1 RN/ /2012 [facility] Center CHEMISTRY Magnesium Lvl 1.9 mg/dL 1.8 - 2.4 05/27 Normal [facility] CHEMISTRY Phosphorus 1.9 mg/dL 2.5 - 4.5 05/27 LOW 2012 [facility] CHEMISTRY eGFR 41 05/27 5Result Comment: The eGFR is calculated using the CKD-EPI formula. In most young, healthy individuals the eGFR will be >90 mL/ min/1.73m2. The eGFR declines with age. An eGFR of 60-89 may be normal in [facility] mL/min/1.7 /2012 some populations, particularly the elderly, for whom the CKD-EPI formula has not been extensively validated. Use of the eGFR is not recommended in the following populations: [place] [address] Center Individuals with unstable creatinine concentrations, including patients and those with serious co-morbid conditions. Patients with extremes in muscle mass or diet. The data above are obtained from the National Kidney Disease Education Program (NKDEP) which additionally recommends that when the eGFR is used in patients with extremes of body mass index for purposes of drug dosing, the eGFR should be multiplied by the estimated BMI. CHEMISTRY Calcium Lvl 9.4 mg/dL 8.5 - 10.5 05/27 Normal [facility] Center CHEMISTRY CO2 17 meq/L 24 - 32 12 LOW Medical [place] CHEMISTRY Chloride Lvl 111 meq/L 95 - 109 05/27 [facility] CHEMISTRY Creatinine 1.5 mg/dL 0.5 - 1.4 05/27 HI [facility] Center CHEMISTRY Sodium Lvl 139 meq/L 135 - 145 05/27 Normal Medical Center CHEMISTRY Glucose Lvl 148 mg/dL 70 - 99 05/27 [place] 8Interpretive Data: Adult reference range values reflect the clinical guidelines of the [place] [employer]. Medical Center CHEMISTRY BUN 43 mg/dL 7 - 22 05/27 [facility] CHEMISTRY Potassium Lvl 4.6 meq/L 3.5 - 5.1 05/27 Normal [facility] CHEMISTRY AGAP 15.6 meq/L 10.0 - 05/27 Normal [facility] 20.0 [facility] HEMATOLOGY MPV 10.1 fL 7.4 - 10.4 05/27 Normal [facility] HEMATOLOGY Platelet 117 K/CMM 133 - 450 05/27 LOW [facility] HEMATOLOGY RDW 14.2 % 11.5 - 05/27 Normal [facility] 14.5 Medical [place] HEMATOLOGY MCHC 35.0 g/dL 32.0 - 05/27 Normal [facility] 36.0 /2012 [facility] HEMATOLOGY MCH 30.9 pg 27.0 - 05/27 [facility] 31.0 /2012 [facility] HEMATOLOGY MCV 88.4 fL 81.0 - 05/27 Normal [facility] 99.0 /2012 [facility] HEMATOLOGY Hct 27.7 % 36.0 - 05/27 LOW [facility] 48.0 /2012 Medical Center HEMATOLOGY Hgb 9.7 g/dL 12.0 - 05/27 LOW [facility] 16.0 /2012 Medical Center HEMATOLOGY RBC X 10x6 3.13 M/CMM 4.20 - 12 [facility] 5.40 /2012 Medical [place] HEMATOLOGY WBC X 10x3 7.4 K/CMM 3.7 - 10.4 05/27 Normal [facility] HEMATOLOGY Segs-Bands # 6.3 K/CMM 1.5 - 8.1 05/27 Normal Medical Center HEMATOLOGY Lymphocytes # 0.5 K/CMM 1.0 - 5.5 05/27 LOW [facility] HEMATOLOGY Monocytes # 0.6 K/CMM 0.0 - 0.8 05/27 Normal [facility] HEMATOLOGY Monocytes 8.3 % 2.0 - 12.0 05/27 Normal [facility] HEMATOLOGY Eosinophils 0.1 % 0.0 - 4.0 05/27 Normal [facility] HEMATOLOGY Basophils 0.1 % 0.0 - 1.0 05/27 Normal [facility] HEMATOLOGY Segs 84.5 % 45.0 - 05/27 [place] 75.0 [facility] HEMATOLOGY Lymphocytes 7.0 % 20.0 - 05/27 LOW [facility] 40.0 [facility] CHEMISTRY Tacrolimus 5.8 ng/mL 5.0 - 15.0 05/27 Normal [facility] BEDSIDE Gluc POC Notify 05/26 [facility] GLUCOSE Comment 1 RN/ [facility] BEDSIDE Gluc POC Notify 05/26 [facility] GLUCOSE Comment 1 RN/ [facility] Center CHEMISTRY Tacrolimus 8.0 ng/mL 5.0 - 15.0 05/26 Normal [facility] CHEMISTRY eGFR 35 05/26 6Result Comment: The eGFR is calculated using the CKD-EPI formula. In most young, healthy individuals the eGFR will be >90 mL/ min/1.73m2. The eGFR declines with age. An eGFR of 60-89 may be normal in [facility] mL/min/1. some populations, particularly the elderly, for whom the CKD-EPI formula has not been extensively validated. Use of the eGFR is not recommended in the following populations: [address] Individuals with unstable creatinine concentrations, including patients and those with serious co-morbid conditions. Patients with extremes in muscle mass or diet. The data above are obtained from the National Kidney Disease Education Program (NKDEP) which additionally recommends that when the eGFR is used in patients with extremes of body mass index for purposes of drug dosing, the eGFR should be multiplied by the estimated BMI. CHEMISTRY Glucose Lvl 123 mg/dL 70 - 99 05/26 [place] 9Interpretive Data: Adult reference range values reflect the clinical guidelines of the [place] [employer]. [facility] CHEMISTRY CO2 21 meq/L 24 - 32 05/26 LOW [facility] CHEMISTRY Calcium Lvl 9.1 mg/dL 8.5 - 10.5 05/26 Normal [facility] CHEMISTRY AGAP 15.1 meq/L 10.0 - 05/26 Normal [facility] 20.0 [facility] CHEMISTRY Creatinine 1.7 mg/dL 0.5 - 1.4 05/26 [facility] CHEMISTRY BUN 39 mg/dL 7 - 22 05/26 [facility] CHEMISTRY Chloride Lvl 107 meq/L 95 - 109 05/26 Normal [facility] CHEMISTRY Potassium Lvl 4.1 meq/L 3.5 - 5.1 05/26 Normal [facility] CHEMISTRY Sodium Lvl 139 meq/L 135 - 145 05/26 Normal [facility] Center CHEMISTRY Magnesium Lvl 2.2 mg/dL 1.8 - 2.4 05/26 Normal [facility] CHEMISTRY Calcium Lvl 9.1 mg/dL 8.5 - 10.5 05/26 Normal [facility] CHEMISTRY Phosphorus 2.8 mg/dL 2.5 - 4.5 05/26 Normal [facility] HEMATOLOGY Lymphocytes 5.3 % 20.0 - 05/26 LOW [facility] 40.0 /2012 [facility] HEMATOLOGY Segs 86.6 % 45.0 - 05/26 [facility] 75.0 [facility] HEMATOLOGY Basophils 0.1 % 0.0 - 1.0 05/26 Normal [facility] HEMATOLOGY Segs-Bands # 9.7 K/CMM 1.5 - 8.1 05/26 [facility] HEMATOLOGY Eosinophils 0.1 % 0.0 - 4.0 05/26 Normal [facility] HEMATOLOGY Monocytes 7.9 % 2.0 - 12.0 05/26 Normal [facility] HEMATOLOGY Lymphocytes # 0.6 K/CMM 1.0 - 5.5 05/26 LOW [facility] HEMATOLOGY Monocytes # 0.9 K/CMM 0.0 - 0.8 05/26 [facility] HEMATOLOGY MCV 88.8 fL 81.0 - 05/26 Normal [facility] 99.0 Medical [place] HEMATOLOGY Hgb 9.1 g/dL 12.0 - 05/26 LOW [facility] 16.0 Medical [place] HEMATOLOGY MCH 30.4 pg 27.0 - 05/26 Normal [facility] 31.0 /2012 [facility] HEMATOLOGY Hct 26.7 % 36.0 - 12 LOW [facility] 48.0 [facility] HEMATOLOGY WBC X 10x3 11.2 K/CMM 3.7 - 10.4 12 [place] [facility] HEMATOLOGY RBC X 10x6 3.00 M/CMM 4.20 - 1216 LOW [facility] 5.40 /2012 [facility] HEMATOLOGY MPV 9.6 fL 7.4 - 10.4 05/26 Normal [facility] HEMATOLOGY RDW 14.0 % 11.5 - 12 Normal [facility] 14.5 /2012 [facility] HEMATOLOGY MCHC 34.3 g/dL 32.0 - 05/26 [facility] 36.0 /2012 [facility] HEMATOLOGY Platelet 126 K/CMM 133 - 450 05/26 LOW [facility] CHEMISTRY POC A Hct See Note 36.0 - 05/25 [facility] 48.0 Medical (05/25/2013 10:45:00) Center CHEMISTRY POC A Glu See Note 70 - 99 05/25 [facility] Medical (05/25/2013 10:45:00) Center CHEMISTRY POC A K See Note 3.5 - 5.1 05/25 [facility] Medical (05/25/2013 10:45:00) Center CHEMISTRY POC A Na See Note 135 - 145 05/25 [facility] Medical (05/25/2013 10:45:00) Center CHEMISTRY POC A LA See Note 0.5 - 2.2 05/25 [facility] Medical (05/25/2013 10:45:00) Center CHEMISTRY POC A Ca Ion See Note 1.05 - 05/25 [facility] 1.25 Medical (05/25/2013 10:45:00) Center CHEMISTRY POC A BE See Note -2-2 - 2 05/25 [facility] Medical (05/25/2013 10:45:00) Center CHEMISTRY POC A O2 Sat See Note 95.0 - 05/25 [facility] 100.0 Medical (05/25/2013 10:45:00) Center CHEMISTRY POC A HCO3 See Note 22 - 26 05/25 [facility] Medical (05/25/2013 10:45:00) Center CHEMISTRY POC A Temp 37.0 Sofia 05/25 MH [facility] CHEMISTRY POC A Source ART 05/25 [facility] Center CHEMISTRY POC A PCO2 See Note 35 - 45 05/25 [facility] Medical (05/25/2013 10:45:00) Center CHEMISTRY POC A PO2 See Note 80 - 100 05/25 [facility] Medical (05/25/2013 10:45:00) Center CHEMISTRY POC A pH See Note 15 7.35 - 05/25 Normal 15Result [facility] 7 Comment: Medical (05/25/2013 10:45:00) Mislabeled Center patient result- credited CHEMISTRY POC A BE See Note -2-2 - 2 05/25 [facility] Medical (05/25/2013 09:40:00) Center CHEMISTRY POC A Hct See Note 36.0 - 05/25 [facility] 48.0 Medical (05/25/2013 09:40:00) Center CHEMISTRY POC A HCO3 See Note 22 - 26 05/25 [facility] Medical (05/25/2013 09:40:00) Center CHEMISTRY POC A O2 Sat See Note 95.0 - 05/25 [facility] 100.0 Medical (05/25/2013 09:40:00) Center CHEMISTRY POC A Na See Note 135 - 145 05/25 [facility] Medical (05/25/2013 09:40:00) Center CHEMISTRY POC A Glu See Note 70 - 99 05/25 [facility] Medical (05/25/2013 09:40:00) Center CHEMISTRY POC A Ca Ion See Note 1.05 - 05/25 [facility] 1. Medical (05/25/2013 09:40:00) Center CHEMISTRY POC A LA See Note 0.5 - 2.2 05/25 [facility] Medical (05/25/2013 09:40:00) Center CHEMISTRY POC A K See Note 3.5 - 5.1 05/25 [facility] Medical (05/25/2013 09:40:00) Center CHEMISTRY POC A Temp 37.0 Sofia 05/25 [facility] Center CHEMISTRY POC A PO2 See Note 80 - 100 05/25 [facility] Medical (05/25/2013 09:40:00) Center CHEMISTRY POC A Source ART 05/25 Medical Center CHEMISTRY POC A pH See Note 16 7.35 - 05/25 Normal 16Result [facility] 7.45 Comment: [facility] (05/25/2013 09:40:00) mislabled - Center patient credited CHEMISTRY POC A PCO2 See Note 35 - 45 05/25 Normal [facility] (05/25/2013 09:40:00) Center CHEMISTRY Tacrolimus 10.2 ng/mL 5.0 - 15.0 05/25 Normal [facility] CHEMISTRY Phosphorus 4.3 mg/dL 2.5 - 4.5 05/25 Normal [facility] CHEMISTRY eGFR 29 05/25 7Result Comment: The eGFR is calculated using the CKD-EPI formula. In most young, healthy individuals the eGFR will be >90 mL/ min/1.73m2. The eGFR declines with age. An eGFR of 60-89 may be normal in [facility] mL/min/1. some populations, particularly the elderly, for whom the CKD-EPI formula has not been extensively validated. Use of the eGFR is not recommended in the following populations: [address] Individuals with unstable creatinine concentrations, including patients and those with serious co-morbid conditions. Patients with extremes in muscle mass or diet. The data above are obtained from the National Kidney Disease Education Program (NKDEP) which additionally recommends that when the eGFR is used in patients with extremes of body mass index for purposes of drug dosing, the eGFR should be multiplied by the estimated BMI. CHEMISTRY AGAP 13.3 meq/L 10.0 - 05/25 Normal [facility] 20.0 [facility] CHEMISTRY Sodium Lvl 136 meq/L 135 - 145 05/25 Normal [facility] CHEMISTRY CO2 25 meq/L 24 - 32 05/25 Normal [facility] CHEMISTRY Potassium Lvl 4.3 meq/L 3.5 - 5.1 05/25 Normal [facility] CHEMISTRY Chloride Lvl 102 meq/L 95 - 109 05/25 Normal [facility] CHEMISTRY Creatinine 2.0 mg/dL 0.5 - 1.4 05/25 [facility] CHEMISTRY BUN 27 mg/dL 7 - 22 05/25 [facility] CHEMISTRY Glucose Lvl 105 mg/dL 70 - 99 05/25 [place] 10Interpretive Data: Adult reference range values reflect the clinical guidelines MH of the [place] [employer]. [facility] CHEMISTRY Magnesium Lvl 2.0 mg/dL 1.8 - 2.4 12 Normal [facility] HEMATOLOGY Segs 91.5 % 45.0 - 12 [place] 75.0 /2012 [facility] HEMATOLOGY Lymphocytes 1.9 % 20.0 - 12 LOW [place] 40.0 /2012 [facility] HEMATOLOGY Monocytes 6.6 % 2.0 - 12.0 05/25 Normal [facility] HEMATOLOGY Segs-Bands # 16.9 K/CMM 1.5 - 8.1 12 HI [facility] HEMATOLOGY Lymphocytes # 0.4 K/CMM 1.0 - 5.5 05/25 LOW [facility] HEMATOLOGY Monocytes # 1.2 K/CMM 0.0 - 0.8 05/25 [facility] HEMATOLOGY MPV 9.6 fL 7.4 - 10.4 05/25 Normal [facility] HEMATOLOGY WBC X 10x3 18.4 K/CMM 3.7 - 10.4 05/25 [place] [facility] HEMATOLOGY RBC X 10x6 3.47 M/CMM 4.20 - 12 [facility] [place] 5.40 /2012 [facility] HEMATOLOGY RDW 14.0 % 11.5 - 12 Normal [facility] 14.5 [facility] HEMATOLOGY MCHC 34.0 g/dL 32.0 - 05/25 Normal [facility] 36.0 [facility] HEMATOLOGY MCV 87.4 fL 81.0 - 05/25 Normal [facility] 99.0 [facility] HEMATOLOGY MCH 29.7 pg 27.0 - 12 Normal [facility] 31.0 [facility] HEMATOLOGY Platelet 166 K/CMM 133 - 450 12 Normal [facility] HEMATOLOGY Hct 30.3 % 36.0 - 12 LOW [facility] 48.0 [facility] HEMATOLOGY Hgb 10.3 g/dL 12.0 - 12 LOW [place] 16.0 [facility] HEMATOLOGY Basophils 0.1 % 0.0 - 1.0 05/24 Normal [facility] HEMATOLOGY Eosinophils 0.1 % 0.0 - 4.0 05/24 Normal [facility] CHEMISTRY Ca Norm WB 1.05 1.05 - 05/24 Normal [facility] mMol/L 1. [facility] CHEMISTRY Ca Ion WB 1.06 1.05 - 05/24 Normal [facility] mMol/L . [facility] Renal Renal EXAM: RENAL TRANSPLANT DOPPLER 05/24 - [facility] transplant transplant US /2012 - [facility] Center DATE: 05/24/2013 Read by: Marcellus Booker Dictated Date/time: 05/24/13 11:21 Electronically Signed by: Marcellus Booker MD 05/24/13 11:27 FINAL REPORT CLINICAL HISTORY: Renal transplant, postoperative day one. TECHNIQUE: Grayscale, color, and spectral Doppler evaluation of the right lower quadrant heterotopic renal transplant is performed. COMPARISON: None available FINDINGS: The right lower quadrant transplant is normal in echogenicity with no focal mass, hydronephrosis or perinephric collection. It measures 10.1 x 4.8 x 5.1 cm. Trace perinephric fluid seen. Urinary bladder is not imaged. Doppler evaluation demonstrates normal color-flow perfusion. Peak systolic velocities in the right external iliac artery measure 231 cm/ sec. Peak systolic velocity in the transplant main renal artery measures 112-cm per second. Main renal vein is patent. Intrarenal resistive indices are 0.64, 0.58, and 0.66 in the superior, mid and inferior kidney, respectively. IMPRESSION: 1. Trace perinephric fluid. Otherwise, unremarkable Doppler examination of transplant kidney. CHEMISTRY POC A K 4.0 meq/L 3.5 - 5.1 05/24 Normal [facility] CHEMISTRY POC A Ca Ion 1.02 1.05 - 05/24 LOW [facility] mMol/L 1. [facility] CHEMISTRY POC A LA 0.9 mMol/L 0.5 - 2.2 05/24 Normal [facility] CHEMISTRY POC A Glu 198 mg/dL 70 - 99 05/24 [facility] CHEMISTRY POC A Temp 37.0 Sofia 05/24 [facility] CHEMISTRY POC A pH 7.42 7.35 - 05/24 Normal [facility] 7.45 [facility] CHEMISTRY POC A PO2 206 mm[Hg] 80 - 100 05/24 [facility] CHEMISTRY POC A Na 134 meq/L 135 - 145 05/24 LOW MH [facility] CHEMISTRY POC A HCO3 24 mMol/L 22 - 26 05/24 Normal 2012 [facility] CHEMISTRY POC A BE 0 mMol/L -2-2 - 2 05/24 Normal [facility] CHEMISTRY POC A O2 Sat 100.0 % 95.0 - 05/24 Normal [facility] 100.0 [facility] CHEMISTRY POC A Hct 28.0 % 36.0 - 05/24 [facility] 48.0 [facility] CHEMISTRY POC A PCO2 37 mm[Hg] 35 - 45 05/[address] CHEMISTRY POC A Source ART 05/[address] Chest 1view Chest 1view PORTABLE CHEST 2013-05-24 00:55:00 05/24 - [facility] COMPARISON: 05/23/2013 Read by: Walter Paniagua Dictated Date/time: 05/24/13 06:24 Electronically Signed by: Walter Paniagua MD 05/24/13 06:25 FINAL REPORT CLINICAL INDICATION: Shortness of Breath DISCUSSION: The endotracheal and NG tubes have been removed. Stable positioning of the right IJ central venous catheter. As before, there is a retrocardiac opacity representing atelectasis or consolidation. Stable appearance of the heart size and mediastinum. CONCLUSION: Removal of endotracheal and NG tubes. Otherwise, there has been no significant interval change in the radiographic appearance of the chest when compared to prior radiograph. Chest 1view Chest 1view EXAM: Chest 1view , 05/23 [facility] DATE: May 23, 2013 06:25:00 PM. Read by: Julissa Wright Dictated Date/time: 05/23/13 21:00 Electronically Signed by: Julissa Wright MD 05/23/13 21:01 FINAL REPORT CLINICAL INDICATION: Central Line Placement / OR 22 . COMPARISON: 05/22/2013 TECHNIQUE: AP supine portable view the chest labeled operating room 22. FINDINGS: New right IJ central line has its tip at the atrial-superior vena cava junction. New nasogastric tube tip is in the body of the stomach but the sidehole is in the distal esophagus. The endotra cheal tube is 1 cm above the aniya. Increased atelectasis noted in the left lower lobe. Lungs clear elsewhere. Cardiomediastinal silhouette unchanged.. IMPRESSION: Right IJ central line appropriately positioned . CHEMISTRY Ca Ion WB 1.09 1.05 - 05/23 Normal [facility] mMol/L 1. [facility] CHEMISTRY Ca Norm WB 1.12 1.05 - 05/23 Normal [facility] mMol/L 1. [facility] CHEMISTRY Vitamin D, null 30 - 100 05/23 LOW 11Interpretive Data: Reference range is based on recommendations in the Endocrine [facility] 25-OH, Society Clinical Practice Guideline (J Clin Endocrinol Metab Medical 2011;96:4588-8761) Center CHEMISTRY Ferritin Lvl 1259 ng/mL 5 - 204 05/23 [facility] CHEMISTRY % [place] 32 % 12 - 57 05/23 Normal [facility] CHEMISTRY UIBC 188 ug/dl 110 - 370 05/23 Normal [facility] CHEMISTRY Iron 89 ug/dl 30 - 160 05/23 Normal [facility] CHEMISTRY TIBC 277 ug/dl 228 - 428 05/23 Normal [facility] CHEMISTRY Ca Ion WB 1.00 1.05 - 05/23 LOW [place] mMol/L 1. [facility] CHEMISTRY Ca Norm WB 1.04 1.05 - 05/23 LOW [place] mMol/L 1. [facility] CHEMISTRY PTH Intact 1435.2 11.1 - 05/23 [facility] pg/mL 79.5 [facility] HEMATOLOGY INR 0.97 0.85 - 05/23 Normal 17Interpretive Data: RECOMMENDED RANGES FOR PROTIME INR: [facility] . 2.0-3.0 for most medical and surgical thromboembolic states. Medical 2.5-3.5 for artificial heart valves and recurrent embolism. Center INR SHOULD BE USED ONLY FOR PATIENTS ON STABLE ANTICOAGULANT THERAPY. HEMATOLOGY aPTT 30.4 s 22.9 - 05/23 Normal 18Interpretiv [facility] 35.8 e Data: [facility] Heparin [place] Therapeutic Range: 57 - 92 Seconds HEMATOLOGY PROTIME 12.8 s 12.0 - 05/23 Normal [facility] 14.7 [facility] HEMATOLOGY Eosinophils # 0.3 K/CMM 0.0 - 0.5 05/23 Normal [facility] IMMUNOLOGY Hep B Core Negative Negative 05/23 [facility] Medical *NA* Center (05/23/2013 03:21:00) IMMUNOLOGY Hep B Core Ab Negative Negative 05/23 [facility] *NA* Center (05/23/2013 03:21:00) IMMUNOLOGY Hep C Ab Negative Negative 05/23 [facility] *NA* [place] (05/23/2013 03:21:00) IMMUNOLOGY Hep Bs Ab 17.7 <=7.4 05/23 [place] 19Interpretive Data: <=7.4 mIU/ mL--------Negative for Anti-HBs. Not immune to HBV infection. [facility] mIU/mL [facility] 7.5-12.4 mIU/mL--Borderline for Anti-HBs and immune status Center should be further assessed by considering other factors such as clinical status follow-up testing, associated risk factors, and the use of additional diagnostic information. >12.4 mIU/mL-------Positive for Anti-HBs. Immune to HBV infection CHEMISTRY U Prot/Creat 4.9 05/22 [facility] CHEMISTRY U Preg Negative Negative 05/22 Normal [facility] (05/22/2013 17:51:00) Center CHEMISTRY U Protein 149.2 05/22 14Interpretiv [facility] mg/dL e Data: No [facility] reference ranges. CHEMISTRY U Creatinine 30.2 mg/dL 05/22 13Interpretiv e Data: No [facility] reference ranges. URINALYSIS UA <=1.0 0.1 - 1.0 05/22 [facility] Urobilinogen mg/dL [facility] URINALYSIS UA Ketones Negative Negative 05/22 [facility] mg/dL [facility] URINALYSIS UA Protein 200 mg/dL Negative 05/22 ABN [facility] URINALYSIS UA Bili Negative Negative 05/22 [facility] *NA* [place] (05/22/2013 17:51:00) URINALYSIS UA Spec Grav 1.004 <=1.030 05/22 Normal [facility] URINALYSIS UA Glucose 200 mg/dL Negative 05/22 ABN [facility] URINALYSIS UA pH 8.5 5.0 - 8.0 05/22 [place] [facility] URINALYSIS UA Sq Epi Few /LPF Few 05/22 [facility] URINALYSIS UA RBC null 0 - 2 05/22 Normal [facility] URINALYSIS UA Leuk Est Negative Negative 05/22 Normal [facility] (05/22/2013 17:51:00) Center URINALYSIS UA Blood Trace Negative 05/22 ABN [facility] *ABN* [place] (05/22/2013 17:51:00) URINALYSIS UA Nitrite Negative Negative 05/22 Normal [facility] (05/22/2013 17:51:00) Center URINALYSIS UA Turbidity Clear Clear 05/22 Normal [facility] (05/22/2013 17:51:00) Center URINALYSIS UA Color Light Yellow Yellow 05/22 [facility] *NA* [place] (05/22/2013 17:51:00) CHEMISTRY GAMMA 16 unit/L 5 - 85 05/22 Normal [facility] TRANSFERASE [place] CHEMISTRY Bili Direct 0.1 mg/dL 0.0 - 0.3 05/22 Normal [facility] CHEMISTRY Bili Indirect 0.4 mg/dL 0.0 - 1.0 05/22 Normal [facility] CHEMISTRY Bili Total 0.5 mg/dL 0.2 - 1.3 05/22 Normal [facility] CHEMISTRY S Preg Negative Negative 05/22 [facility] *NA* [place] (05/22/2013 13:48:54) CHEMISTRY Hgb A1C 5.1 % <=5.6 05/22 Normal [facility] CHEMISTRY CHD Risk 3.00 3.90 - 05/22 LOW [facility] 5.80 [facility] CHEMISTRY LDL 70 mg/dL <=99 05/22 Normal [facility] ([facility]) [facility] CHEMISTRY Trig 180 mg/dL <=149 05/22 [place] [facility] CHEMISTRY Chol 159 mg/dL <=199 05/22 Normal [facility] CHEMISTRY HDL 53 mg/dL >=61 05/22 LOW [facility]2012 [facility] HEMATOLOGY Eosinophils # 0.3 K/CMM 0.0 - 0.5 05/22 Normal [facility] IMMUNOLOGY Hep Bs Ag Negative Negative 05/22 [facility] *NA* [place] (05/22/2013 13:48:54) IMMUNOLOGY HIV 1/2 Ab Negative Negative 05/22 Medical *NA* Center (05/22/2013 13:48:54) IMMUNOLOGY CMV IgG Reactive Non 05/22 ABN [facility] Reactive /2012 Medical *ABN* Center (05/22/2013 13:48:34) CHEMISTRY Immune Cell 305 05/22 12Result Comment: Reference Range [facility] < [id number] Low immune cell response [facility] [phone] Moderate immune cell response [place] > bt=[id number] High immune cell response Test Performed at: [facility] [address] [id number] TIKI DUARTE M.D. CHEMISTRY Total Protein 8.1 g/dL 6.4 - 8.4 05/22 Normal [facility] CHEMISTRY ASPARTATE 51 unit/L 0 - 37 05/22 HI [facility] CHEMISTRY Globulin 3.9 g/dL 2.0 - 4.0 05/22 Normal [facility] CHEMISTRY A/G Ratio 1.1 0.7 - 1.6 05/22 Normal [facility]2012 [facility] CHEMISTRY Alk Phos 91 unit/L 39 - 136 05/22 Normal [facility] CHEMISTRY Albumin Lvl 4.2 g/dL 3.5 - 5.0 05/22 Normal [facility] CHEMISTRY ALANINE 34 unit/L 0 - 65 05/22 Normal [facility] AMINO [facility] BACTERIAL - MRSA by PCR Negative 1 05/22 Normal 1Interpretive Data: Interpretive Data: The [employer] LightCycler MRSA assay is a qualitative test for the direct detection of nasal colonization with methicillin-resistant Staphylococcus aureus (MRSA) to aid [facility] in the prevention and control of MRSA infections in healthcare settings. A positive result does not indicate an infection or require treatment. A negative result does not exclude colonization or infection. [facility] (05/22/2013 13:48:03) Center The polymerase chain reaction (PCR) assay detects a proprietary sequence indicative of the integration of the SCCmec cassette into the Staphylococcus aureus chromosome, indicating the presence of MRSA D NA. The assay utilizes FDA cleared IVD reagents. Performance characteristics have been verified by the Molecular Diagnostic Laboratory within the [facility]. The Molecular Diagnostic Labor atory is authorized under the Clinical Laboratory Improvement Amendment of 1988 (CLIA-88) to perform high complexity testing. BLOOD BANK ABO/Rh O POS 05/22 [facility] BLOOD BANK Antibody Scrn Negative 05/22 Normal [facility] RESULTS /2012 Medical (05/22/2013 13:45:00) Center Chest 2 Chest 2 views EXAM: XR CHEST 2 VIEWS 05/22 - [facility] views /2012 - Medical This report was dictated by a Glove Pairer/Fellow. I have personally reviewed the images as Center well as the Resident's interpretation and agree with the findings. DATE: May 22, 2013, 1516 hours Read by: Jaya Lundy Resident: Jaya Lundy Dictated Date/time: 05/22/13 15:16 Electronically Signed by: Walter Paniagua MD 05/22/13 17:40 FINAL REPORT INDICATION: Shortness of Breath COMPARISON: None available TECHNIQUE: Frontal and lateral chest radiographs DISCUSSION: The cardiac silhouette and mediastinal contours are normal. There is no pneumothorax. The costophrenic angles are sharp and without effusion. There are no airspace consolidations, masses, or nodules appreciated. There are no acute osseous or soft tissue abnormalities appreciated. IMPRESSION: No acute cardiopulmonary process identified. REFERENCE HLA Misc Test See Report 1 05/20 Normal 1Result [facility] LAB RESULTS /2012 Comment: Medical (05/20/2013 17:22:00) Reference lab Center results scanned in [employer]. Results displayed in [id number]-Outside Lab Documents (Imaged) under date/time results were scanned. Report sent for scanning on 05/27/2013 10:19. REFERENCE Test Name HLA TYPING 05/20 [facility] LAB RESULTS [facility] CHEMISTRY POC Potassium 4.8 meq/L 3.5 - 5.1 12/27 Normal [facility] /2012 [facility] Digital Digital Mammo - DIGITAL MAMMO SCREENING [place] 11/14 - OPID Mammo Screening [place] /2012 - [place] Screening [place] BILATERAL DIGITAL SCREENING MAMMOGRAM WITH CAD: 11/14/2012 [place] CLINICAL: Routine. Read by: Elias Biswas Dictated Date/time: 11/14/12 15:48 Electronically Signed by: Elias Biswas MD PHD 11/14/12 15:48 FINAL REPORT Current study was evaluated with a Computer Aided Detection (CAD) system. No prior exams were available for comparison. The tissue of both breasts is heterogeneously dense. This may lower the sensitivity of mammography. There are benign calcifications in both breasts. No significant masses, calcifications, or other findings are seen in either breast. IMPRESSION: BENIGN There is no mammographic evidence of malignancy. A screening mammogram in one year is recommended. Elias beckham/boris:11/14/2012 15:48:46 [employer] Operator: Mrs. Shauna Cabral RT(R), [facility] Outpatient Imaging Department letter sent: Normal exam Mammogram BI-RADS: 2 Benign Abdomen/Pel Abdomen/Pelvi EXAM: CT ABDOMEN AND PELVIS WITHOUT IV CONTRAST 10/15 - [facility] wo s wo contrast /2012 - Medical contrast CT CT Center DATE: 10/15/2012 Read by: Marcellus Booker Dictated Date/time: 10/15/12 11:53 Electronically Signed by: Marcellus Booker MD 10/15/12 12:00 FINAL REPORT CLINICAL INDICATION: Prerenal transplant evaluation. TECHNIQUE: Volumetric acquisition of abdomen from the level of the domes of the diaphragm through the symphysis pubis using 5 mm collimation without the administration of intravenous and oral contrast. Axial, sagittal and coronal images were interpreted. COMPARISON: None available. FINDINGS: Both lung bases are clear. No pleural or precut effusions. There is small hiatal hernia. Abdomen and pelvis: Punctate [id number]-characterize hypodensity seen in the inferior right lobe of liver in segment 5/6 on image 30 series 3. Liver otherwise, spleen, pancreas, gallbladder, both adrenals are grossly unremarkable. Both [place] kidneys are small and severely atrophic with mild perinephric fat stranding consistent with chronic kidney disease. A 1.2 cm slightly exophytic hypodense cystic lesion seen in the medial cor intza of the mid to lower pole of left kidney remains incompletely characterized, renal ultrasound may be obtained for further characterization. Urinary bladder is empty. Uterus is anteverted. Both ovaries are visualized and are grossly unremarkable. Stomach, duodenum, small bowel, appendix are grossly unremarkable. Fecal matter seen scattered through the colon which is otherwise grossly unremarkable. Scattered of the cirrhotic calcifications seen in the abdominal aorta, bilateral common and internal iliac arteries. No significant atherosclerotic calcifications seen in bilateral external iliac arteries. Bones are grossly unremarkable. No suspicious lytic or blastic lesions seen within the bones. IMPRESSION: 1. Small and atrophic [place] kidneys bilaterally with mild perinephric fat stranding consistent with chronic medical renal disease. 2. A 1.2 cm left renal hypodense cystic lesion is slightly incompletely characterized given the noncontrast technique. If indicated, renal ultrasound the be performed for definitive characterization. 3. Mild scattered atherosclerotic calcifications in abdominal aorta, bilateral common and internal iliac arteries. No significant atherosclerotic calcifications in bilateral external iliac arteries. 4. Punctate ugo-oeoou-bh-characterize hepatic segment 5/6 hypodensity. BLOOD BANK ABO/Rh O POS 10/01 Unknown [facility] RESULTS Medical Center BLOOD BANK ABO/Rh O POS 10/01 Unknown [facility] RESULTS [facility] CHEMISTRY Vitamin D, <13 ng/mL 30 - 100 10/01 ABN 5Interpretive Data: Reference range is based on recommendations in the Endocrine [facility] 25-OH, Total <sup>5</ /2012 Society Clinical Practice Guideline (J Clin Endocrinol Metab Medical p>
*AB 2010;[id number]) Center N*
( 07:20:00) <sup> </sup> CHEMISTRY Temi Scr Negative Negative 10/01 Normal Medical (10/01/2012 07:20:00) Center CHEMISTRY Cannab Scr Negative Negative 10/01 Normal Medical (10/01/2012 07:20:00) Center CHEMISTRY Benzodiaz Scr Negative Negative 10/01 Normal Medical (10/01/2012 07:20:00) Center CHEMISTRY Methadone Scr Negative Negative 10/01 Normal Medical (10/01/2012 07:20:00) Center CHEMISTRY Cocaine Scr Negative Negative 10/01 Normal Medical (10/01/2012 07:20:00) Center CHEMISTRY Opiate Scr Negative Negative 10/01 Normal Medical (10/01/2012 07:20:00) Center CHEMISTRY Amph Scr Negative Negative 10/01 Normal Medical (10/01/2012 07:20:00) Center CHEMISTRY Propoxyphn Negative Negative 10/01 Normal [facility] Medical (10/01/2012 07:20:00) Center CHEMISTRY PCP Scr Negative Negative 10/01 Normal Medical (10/01/2012 07:20:00) Center CHEMISTRY Cutoff Values See Note 7 10/01 Normal 7Interpretive Data: Cutoff (lowest detectable by EIA) values for Serum Drugscreen: THC and PCP: 1 ng/mL [facility] (10/01/2012 07:20:00) All others: 20 ng/mL Center Cutoff (lowest detectable by GC/MS) value for confirmation: THC and PCP: 1 ng/mL Benzodiazepines: 5 ng/ml All others: 10 ng/ml Test performed by [facility] [address] [place] [address] CHEMISTRY Immune Cell 459 10/01 NA 8Result Comment: Reference Range [facility] < [id number]=[phone] Low immune cell response [facility] [phone] Moderate immune cell response [place] > [id number]=[phone] High immune cell response Test Performed at: [facility] [address] [address] TIKI DUARTE M.D. CHEMISTRY Hgb A1C 5.2 % 10/01 NA 6Interpretive Data: HbA1C% eAG(mg /dL) Interpretation 6.0 126 Very good control [facility] 6.5 140 Very good control [place] 7.0 154 Good Control 7.5 169 Good Control 8.0 183 Marginal Control, take action to lower 8.5 197 Marginal Control, take action to lower 9.0 212 Poor Control, take action to lower 9.5 226 Poor Control, take action to lower 10.0 240 Poor Control, take action to lower CHEMISTRY eGFR 5 10/01 NA 3Result Comment: The eGFR is calculated using the CKD-EPI formula. In most young, healthy individuals the eGFR will be >90 mL/ min/1.73m2. The eGFR declines with age. An eGFR of 60-89 may be normal in [facility] mL/min/1. some populations, particularly the elderly, for whom the CKD-EPI formula has not been extensively validated. Use of the eGFR is not recommended in the following populations: [place] [address] Center Individuals with unstable creatinine concentrations, including patients and those with serious co-morbid conditions. Patients with extremes in muscle mass or diet. The data above are obtained from the National Kidney Disease Education Program (NKDEP) which additionally recommends that when the eGFR is used in patients with extremes of body mass index for purposes of drug dosing, the eGFR should be multiplied by the estimated BMI. CHEMISTRY BUN 44 mg/dL 10/01 [facility] CHEMISTRY Creatinine 8.0 mg/dL 0.5 - 1.4 10/01 [place] [facility] CHEMISTRY Chloride Lvl 97 meq/L 95 - 109 10/01 Normal Medical Center CHEMISTRY Sodium Lvl 137 meq/L 135 - 145 10/01 Normal Medical Center CHEMISTRY Potassium Lvl 3.9 meq/L 3.5 - 5.1 10/01 Normal Medical [facility] CHEMISTRY Calcium Lvl 9.4 mg/dL 8.5 - 10.5 10/01 Normal Medical Center CHEMISTRY Bili Total 0.4 mg/dL 0.2 - 1.3 10/01 Normal Medical Center CHEMISTRY Total Protein 7.8 g/dL 6.4 - 8.4 10/01 Normal Medical Center CHEMISTRY CO2 24 meq/L 24 - 32 10/01 Normal Medical [facility] CHEMISTRY AST 10 unit/L 0 - 37 10/01 Normal [facility] CHEMISTRY Alk Phos 70 unit/L 39 - 136 10/01 Normal [facility] CHEMISTRY Glucose Lvl 166 mg/dL 70 - 99 10/01 [place] 4Interpretive Data: Adult reference range values reflect the clinical guidelines of the [place] [employer]. Medical Center CHEMISTRY ALT 20 unit/L 0 - 65 10/01 Normal Medical Center CHEMISTRY Albumin Lvl 4.2 g/dL 3.5 - 5.0 10/01 Normal [facility] CHEMISTRY AGAP 19.9 meq/L 10.0 - 10/01 Normal [facility] 20.0 Medical Center CHEMISTRY A/G Ratio 1.2 0.7 - 1.6 10/01 Normal Medical Center CHEMISTRY B/C Ratio 6 6 - 25 10/01 Normal Medical Center CHEMISTRY Globulin 3.6 g/dL 2.0 - 4.0 10/01 Normal Medical Center CHEMISTRY CHD Risk 3.09 3.90 - 10/01 LOW [facility] 5.80 Medical Center CHEMISTRY LDL 87 mg/dL 0 - 129 10/01 Normal Medical [facility] CHEMISTRY Chol 179 mg/dL 120 - 200 10/01 Normal Medical [facility] CHEMISTRY Trig 169 mg/dL 0 - 200 10/01 Normal Medical [facility] CHEMISTRY HDL 58 mg/dL >=35 10/01 Normal [facility] CHEMISTRY Uric Acid 3.8 mg/dL 2.5 - 7.0 10/01 Normal [facility] CHEMISTRY Phosphorus 5.7 mg/dL 2.5 - 4.5 10/01 [facility] CHEMISTRY Iron 116 ug/dl 30 - 160 10/01 Normal [facility] CHEMISTRY LDH 164 unit/L 98 - 192 10/01 Normal [facility] CHEMISTRY PTH Intact 523.2 11.1 - 10/01 [facility] pg/mL 79.5 [facility] CHEMISTRY Transferrin 187 mg/dL 212 - 360 10/01 LOW [facility] CHEMISTRY hCG Tot null 10/01 NA 9Interpretive Data: Reference Range: Male 0 - 5 mIU/mL [facility] Non- Female 0 - 5 mIU/mL [place] Note: hCG result should be used in conjunction with symptoms, results of other tests, and clinical impressions. Weeks of Gestation hCG (mIU/mL) 3 6 - 71 4 10-750 5 217 - 7,138 6 158 -31,795 7 3,697 - 163,563 8 32,065 - 149,571 9 63,803 - 151,410 10 46,506 - 186,977 11 27,832 - 210,612 14 13,950 - 62,530 15 12,039 - 70,971 16 9,040 - 56,451 17 8,175 - 55,868 18 8,099 - 58,176 CHEMISTRY LDL Direct 86 mg/dL 0 - 129 10/01 Normal [facility] HEMATOLOGY Protein C 157 % 72 - 147 10/01 [facility] HEMATOLOGY Protein S 78 % 54 - 137 10/01 Normal [facility] HEMATOLOGY MPV 9.3 fL 7.4 - 10.4 10/01 Normal [facility] HEMATOLOGY MCV 93.9 fL 81.0 - 10/01 Normal [facility] 99.0 [facility] HEMATOLOGY MCH 33.1 pg 27.0 - 10/01 [facility] 31.0 [facility] HEMATOLOGY Hgb 9.7 g/dL 12.0 - 04 LOW [place] 16.0 /2012 [facility] HEMATOLOGY Hct 27.7 % 36.0 - 10/01 LOW [facility] 48.0 /2012 [facility] HEMATOLOGY WBC 6.4 K/CMM 3.7 - 10.4 10/01 Normal [facility] HEMATOLOGY RBC 2.94 M/CMM 4.20 - 04 LOW [facility] 5.40 /2012 [facility] HEMATOLOGY MCHC 35.2 g/dL 32.0 - 10/01 Normal [facility] 36.0 /2012 [facility] HEMATOLOGY RDW 13.5 % 11.5 - 04 Normal [facility] 14.5 /2012 [facility] HEMATOLOGY Platelet 150 K/CMM 133 - 450 10/01 Normal [facility] HEMATOLOGY INR 0.93 0.85 - 10/01 Normal 10Interpretive Data: RECOMMENDED RANGES FOR PROTIME INR: [facility] . 2.0-3.0 for most medical and surgical thromboembolic states. Medical 2.5-3.5 for artificial heart valves and recurrent embolism. Center INR SHOULD BE USED ONLY FOR PATIENTS ON STABLE ANTICOAGULANT THERAPY. HEMATOLOGY PT 12.7 s 12.0 - 10/01 Normal [facility] 14.7 /2012 [facility] HEMATOLOGY PTT 32.2 s 22.9 - 10/01 Normal 11Interpretiv [facility] 35.8 /2012 e Data: [facility] Therapeutic Range: 57 - 92 Seconds HEMATOLOGY Segs 61.6 % 45.0 - 10/01 Normal [facility] 75.0 /2012 [facility] HEMATOLOGY Monocytes 6.7 % 2.0 - 12.0 10/01 Normal [facility] HEMATOLOGY Lymphocytes 26.3 % 20.0 - 04 Normal [facility] 40.0 /2012 [facility] HEMATOLOGY Lymphocytes # 1.7 K/CMM 1.0 - 5.5 10/01 Normal [facility] HEMATOLOGY Eosinophils # 0.3 K/CMM 0.0 - 0.5 10/01 Normal [facility] HEMATOLOGY Monocytes # 0.4 K/CMM 0.0 - 0.8 10/01 Normal [facility] HEMATOLOGY Segs-Bands # 3.9 K/CMM 1.5 - 8.1 10/01 Normal [facility] HEMATOLOGY Basophils 0.6 % 0.0 - 1.0 10/01 Normal [facility] HEMATOLOGY Eosinophils 4.8 % 0.0 - 4.0 10/01 HI [facility] HEMATOLOGY F5 Leiden PCR Negative 10/01 Normal [facility] (10/01/2012 07:20:00) [place] HEMATOLOGY F5 Leiden FACTOR V 10/01 NA [facility] Intrp LEIDEN: [facility] INTERPRETA TION: Molecular analysis for the Factor V Leiden, R506Q mutation was negative. Other causes of activated protein C resistance and hereditary forms of venous thrombosis are not ruled out. Final diagnosis required correlatio n with clinical history and other pertinent laboratory findings. Where appropriat e, medical consultati on and/or genetic counseling should be offered to inform and explain the risk implicatio ns and genetic implicatio ns of these test results. CPT: 18871 ASSAY LIMITATION S: The assay uses the FDA-cleare d Marci Factor V Leiden IVD(Poymer ase chain reaction/F RET detection) , [employer] LC Instrument as well as [employer]wood[employer] 1.2 Instrument . A 222-bp fragment of Factor V gene (FV) containing the Factor V Leiden sequence is amplified in the assay. The assay is designed to detect the G 1691A mutation only. Other causes of activated protein C resistance and hereditary forms of venous thrombosis are to ruled out. However, melting curve analysis may implicate the presence of possible rare mutations at position. 1689, 1692 and 1696 (further testing will be recommende d in the report). A minimum detection level is 202 copies of Factor V Leiden per reaction. The level of agreement between the Factor V Leiden Kit and sequence analysis was 99.4%. The test result must be interprete d along with the patient's clinical history and other pertinent laboratory data.This assay has been validated by [facility] Molecular diagnostic Laboratory . HEMATOLOGY F2 Mut Interp FACTOR II 10/01 [facility] PT: [facility] INTERPRETA TION: Molecular analysis for the Factor II (Prothromb in) 97205S>A mutation was negative. Other causes of elevated prothrombi n levels and hereditary forms of venous thrombosis are not ruled out. Final diagnosis requires correlatio n with clinical history and other pertinent laboratory findings. Where appropriat e, medical consultati on and genetic counseling should be offered to inform and explain the risk implicatio ns and genetic implicatio ns of these test results. CPT: 03939 ASSAY LIMITATION S: The assay uses the FDA-cleare d Marci Factor II (Prothromb in) [id number] IVD (Polymeras e chain reaction/F RET detection) , [employer] LC Instrument as well as [employer]wood[employer] r 1.2 Instrument . A 165-bp fragment of Factor II gene(FII) containing the Factor II [id number] sequence is amplified in the assay. The assay is designed to detect the X68113H mutation only. Other causes of elevated prothrombi n levels and hereditary forms of venous thrombosis are not ruled out. However, the melting curve analysis may implicate the presence of a possible rare mutation at position 22468 (Further testing will be recommende d in the report). A minimum detection level is 198 copies of Factor II per reaction. The level of agreement between the Factor II(Prothro mbin) [id number] Kit and sequence analysis was 98.9%. The test result must be interprete d along with the patient's clinical history and other pertinent laboratory data. This assay has been validated by [facility] . HEMATOLOGY F2 Mutation Negative 10/01 Normal [facility] PCR /2012 Medical (10/01/2012 07:20:00) Center HEMATOLOGY MTHFR DNA SEE NOTE 10/01 NA 12Result Comment: RESULT: [facility] NO MUTATION DETECTED [facility] Center INTERPRETATION: This individual is negative (normal) for the mutations, C677T and G8580E, in the MTHFR gene. Increased risk of coronary heart disease, venous thrombosis and increased plasma homocysteine can be caused by a variety of genetic and non-genetic factors not screened for by this assay. Laboratory testing supervised and results monitored by Benjie Mary M.D., Ph.D., FACMG, FAAP, HCLD. Hyperhomocysteinemia is a risk factor for arterial disease and venous thrombosis. Homocysteine levels are affected by nutritional and genetic factors. Since MTHFR is involved in methylation of homocysteine to methionine, individuals with MTHFR gene mutations that reduce enzyme activity may develop hyperhomocysteinemia and thus be at elevated risk for vascular disease. The C677T [NM 623996.3: c.665C>T (p.A222V)] and Q7864V [c. 1286A>C (p.E429A)] mutations are detected by amplification of the selected regions of MTHFR gene by polymerase chain reaction (PCR) and fluorescent probes hybridization to the targeted regions, followed by melting curve analysis with a real time PCR system. Although rare, false positive or false negative results may occur. All results should be interpreted in context of clinical findings, relevant history, and other laboratory data. This test was developed and its performance characteristics have been determined by [employer] [facility]. It has not been cleared or approved by the U.S. Food and Drug Administration. The FDA has determined that such clearance or approval is not necessary. Performance characteristics refer to the analytical performance of the test. Health care providers, please contact your local [employer]' genetic counselor or call [phone] ([phone]) for assistance with interpretation of these results. Test Performed at: [employer] [address] [address] Garry Fernández MD, PhD HEMATOLOGY AT [facility] 86 % 77 - 140 10/01 Normal 2012 [facility] IMMUNOLOGY Varicella IgG 3.1 AI <=0.8 10/01 [place] 16Interpretive Data: Antibody Index (AI) Results Interpretation ------- Medical 0.0-0.8 Negative No detectable IgG Antibody. Center 0.9-1.0 Equivocal Repeat testing suggested in 10-14 days. >=1.10 Positive Indicates presence of detectable IgG Antibody. IMMUNOLOGY Varicella IgM 0.81 ISR 10/01 NA 17Result Comment: Reference Range: 0.00-0.90 NEGATIVE Medical 0.91-1.09 EQUIVOCAL Center >=1.10 POSITIVE Results from any one IgM assay should not be used as a sole determinant of a current or recent infection. Because an IgM test can yield false positive results and low level of IgM antibody may persist for more than 12 months post infection, reliance on a single test result could be misleading. If an acute infection is suspected, consider obtaining a new specimen and submit for both IgG and IgM testing in two or more weeks. Test Performed at: [employer] [address] [place] [address] Garry Fernández MD, PhD IMMUNOLOGY HSV 1 IgG 4.1 AI <=0.8 10/01 [place] 21Interpretive Data: Antibody Index (AI) Results Interpretation ------- Medical 0.0-0.8 Negative No detectable IgG Antibody. Center 0.9-1.0 Equivocal Repeat testing suggested in 10-14 days. >=1.10 Positive Indicates presence of detectable IgG Antibody. IMMUNOLOGY HSV 2 IgG null <=0.8 10/01 Normal 22Interpretive Data: Antibody Index (AI) Results Interpretation ------- Medical 0.0-0.8 Negative No detectable IgG Antibody. Center 0.9-1.0 Equivocal Repeat testing suggested in 10-14 days. >=1.10 Positive Indicates presence of detectable IgG Antibody. IMMUNOLOGY EBV VCA IgM null <=0.8 10/01 Normal 15Interpretive Data: Antibody Index (AI) Results Interpretation ------- Medical 0.0-0.8 Negative No detectable IgM Antibody. Center 0.9-1.0 Equivocal Repeat testing suggested in 10-14 days. >=1.10 Positive Significant level of detectable IgM Antibody, indicative of current or recent infection. IMMUNOLOGY TB - NIL 0.04 10/01 NA 24Result Comment: The Nil tube value is used to determine if the patient GILBERT Abebe [iU]/mL has a preexisting immune response which could cause a Medical false-positive reading on the test. In order for a Center test to be valid, the Nil tube must have a value of less than or equal to 8.0 IU/mL. The mitogen control tube is used to assure the patient has a healthy immune status and also serves as a control for correct blood handling and incubation. It is used to detect false-negative readings. The mitogen tube must have a gamma interferon value of greater than or equal to 0.5 IU/mL higher than the value of the Nil tube. The TB antigen tube is coated with the M. tuberculosis specific antigens. For a test to be considered positive, the TB antigen tube value minus the Nil tube value must be greater than or equal to 0.35 IU/mL. For additional information, please refer to http://education.[employer]/faq/QFT (This link is being provided for informational/ educational purposes only.) Test Performed at: [facility] [address] [address] TIKI DUARTE M.D. IMMUNOLOGY Mitogen - NIL 2.15 10/01 [facility] [iU]/mL [facility] IMMUNOLOGY NIL 0.04 10/01 [facility] [iU]/mL [facility] IMMUNOLOGY Quantiferon - NEGATIVE NEGATIVE 10/01 Result Comment: Negative test result. M. tuberculosis complex [facility] TB infection unlikely. [facility] IMMUNOLOGY Hep Bs Ab 7.7 mIU/mL <=7.4 10/01 [place] 25Interpretive Data: <= 7.4 mIU/mL--------Negative for Anti-HBs. Not immune to HBV infection. [facility] 7.5-12.4 mIU/mL--Borderline for Anti-HBs and immune status Center should be further assessed by considering other factors such as clinical status follow-up testing, associated risk factors, and the use of additional diagnostic information. >12.4 mIU/mL-------Positive for Anti-HBs. Immune to HBV infection IMMUNOLOGY Hep C Ab Negative Negative 10/01 [facility] (10[facility]01/2012 07:20:00) IMMUNOLOGY Hep Bs Ag Negative Negative 10/01 [facility] [place] (10/01/2012 07:20:00) IMMUNOLOGY Hep B Core Ab Negative Negative 10/01 [facility] [place] (10/01/2012 07:20:00) IMMUNOLOGY CMV IgG Reactive Non 10/01 ABN [facility] Reactive [facility] [place] (10/01/2012 07:20:00) IMMUNOLOGY RPR Non Reactive Non 10/01 Normal [facility] Reactive Medical (10/01/2012 07:20:00) Center IMMUNOLOGY CMV IgM 0.1 S/CO 10/01 NA 13Interpretive Data: Reference Ranges: [facility] Ratio Non-reactive: <0.9 S/CO Ratio Medical Indeterminate: 0.9 - 1.0 S/CO Ratio Center Reactive: >=1.1 S/CO Ratio IMMUNOLOGY EBV VCA IgG null <=0.8 10/01 [place] 14Interpretive Data: Antibody Index (AI) Results Interpretation ------- Medical 0.0-0.8 Negative No detectable IgG Antibody. Center 0.9-1.0 Equivocal Repeat testing suggested in 10-14 days. >=1.10 Positive Indicates presence of detectable IgG Antibody. IMMUNOLOGY HIV 1/2 Ab Negative Negative 10/01 [facility] Medical *NA* Center (10/01/2012 07:20:00) IMMUNOLOGY Homocyst Tot 27.4 3.7 - 13.9 10/01 [facility] umol/L [facility] Center IMMUNOLOGY Cardiolipin 1 IgA 10/01 NA 18Interpretive Data: Reference Ranges for IgA: [facility] IgA 0-11 APL Negative Medical id Units 12-20 APL Inconclusive Center 21-80 APL Low-Med Positive > 80 APL Strong Positive IMMUNOLOGY Cardiolipin 5.4 IgM 10/01 NA 20Interpretive Data: Reference Ranges for IgM: [facility] IgM 0-12.4 MPL Negative Medical id Units 12.5-20 MPL Inconclusive Center 21-80 MPL Low-Med Positive > 80 MPL Strong Positive IMMUNOLOGY Cardiolipin 5 IgG 10/01 NA 19Interpretive Data: Reference Ranges for IgG: [facility] IgG 0-14 GPL Negative Medical id Units 15-20 GPL Inconclusive Center 21-80 GPL Low-Med Positive > 80 GPL Strong Positive IMMUNOLOGY C3 Complement 86 mg/dL 88 - 201 10/[address] IMMUNOLOGY C4 Complement 31 mg/dL 16 - 47 10/[address] INFECTIOUS BK Virus PCR null 10/01 NA 1Interpretive Data: Analytic Quantification Range: 100-400,000,000 copies/mL (2.0-8.6 log) [facility] DISEASES Qnt (log) Medical BK DNA detected below 100 copies/mL will be resulted as "BK DNA Center detected, less than 100 copies/mL." No target BK DNA detected will be reported as "BK DNA not detected. " A negative result does not rule out the possibility of the presence of the BK virus. The specimen may contain BK below the detectable limits of the assay. The BK Virus is a DNA virus belonging to the polyomaviruses. The BK Virus assay targets a 274 base pair region of the BK virus genome. This assay utilizes analyte specific (ASR) reagents for Real-Time nucleic acid amplification (PCR). Results should not be used as the sole basis for clinical diagnosis, treatment or patient management. Performance characteristics have been verified by the [facility] within [facility]. The Molecular Diagnostic Laboratory is authorized under the Clinical Laboratory Improve ment Amendments of 1988 (CLIA-88) to perform high complexity testing. INFECTIOUS BK Virus PCR Negative Negative 10/01 Normal [facility] DISEASES Qnt /2012 Medical (10/01/2012 07:20:00) Center INFECTIOUS Source BK Plasma 10/01 NA [facility] DISEASES Virus PCR Qnt [facility] PARASITOLOG Strongyloides null 10/01 NA 2Result Comment: REFERENCE RANGE : <1.00 [facility] Y - Antibodies Medical SEROLOGY INTERPRETIVE CRITERIA: Center <1.00 Antibody Not Detected > or=1.00 Antibody Detected Strongyloides stercoralis is a parasitic nematode found in tropical and subtropical regions. Because of low larval densities in feces, stool examination is a relatively insensitive diagnostic test; serodiagnosis by SUSAN offers increased sensitivity. Antibody titers decrease in many patients following treatment. Patients with latent infections who are immunosuppressed or receiving immunosuppressive therapy are at risk of life-threatening hyperinfection. Significant crossreactivity may be observed in filarial and other nematode infections. This test was developed and its performance characteristics have been determined by [employer]. Performance characteristics refer to the analytical performance of the test. Test Performed at: [employer] [address] [place] [address] Garry Diop MD Vital Signs Vital Sign Value Date Comments Source Weight 84 07/30/2017 [facility] Systolic (mm Hg) 114 07/30/2017 [facility] Diastolic (mm Hg) 62 07/30/2017 [facility] Heart Rate 51 07/30/2017 [facility] Systolic (mm Hg) 131 07/12/2017 [facility] [facility] Diastolic (mm Hg) 80 07/12/2017 [facility] Heart Rate 64 07/12/2017 [facility] Weight 83.909 07/12/2017 [facility] Height 162.56 cm 07/02/2017 [facility] BMI Calculated 31.38 07/02/2017 [facility] Weight 82.926 07/02/2017 [facility] Respitory Rate 18 07/02/2017 [facility] Heart Rate 56 07/02/2017 [facility] Systolic (mm Hg) 108 07/02/2017 [facility] Diastolic (mm Hg) 70 07/02/2017 [facility] Systolic (mm Hg) 112 05/29/2017 [facility] Diastolic (mm Hg) 74 05/29/2017 [facility] Heart Rate 71 05/29/2017 [facility] Weight 82.727 05/29/2017 [facility] Height 162.56 cm 04/05/2017 [facility] Weight 82.545 04/05/2017 [facility] BMI Calculated 31.24 04/05/2017 [facility] Systolic (mm Hg) 122 04/05/2017 [facility] Diastolic (mm Hg) 83 04/05/2017 [facility] Heart Rate 85 04/05/2017 [facility] Systolic (mm Hg) 136 12/05/2016 [facility] Diastolic (mm Hg) 76 12/05/2016 [facility] Heart Rate 65 12/05/2016 [facility] Height 162.56 cm 12/05/2016 [facility] BMI Calculated 32.85 12/05/2016 [facility] Weight 86.818 12/05/2016 [facility] BMI Calculated 33.64 09/21/2016 [facility] Height 162.56 cm 09/21/2016 [facility] Weight 88.909 09/21/2016 [facility] Heart Rate 60 09/21/2016 [facility] Systolic (mm Hg) 96 09/21/2016 [facility] Diastolic (mm Hg) 52 09/21/2016 [facility] Height 162.56 cm 08/24/2016 [facility] BMI Calculated 33.47 08/24/2016 [facility] Weight 88.455 08/24/2016 [facility] Heart Rate 62 08/24/2016 [facility] Systolic (mm Hg) 126 08/24/2016 [facility] Diastolic (mm Hg) 64 08/24/2016 [facility] Systolic (mm Hg) 111 07/27/2016 [facility] Diastolic (mm Hg) 75 07/27/2016 [facility] Heart Rate 51 07/27/2016 [facility] Weight 86.932 07/27/2016 [facility] BMI Calculated 32.9 07/27/2016 [facility] Height 162.56 cm 07/27/2016 [facility] Heart Rate 69 06/26/2016 [facility] Respitory Rate 18 06/26/2016 [facility] Systolic (mm Hg) 129 06/26/2016 [facility] Diastolic (mm Hg) 78 06/26/2016 [facility] BMI Calculated 31.7 06/26/2016 [facility] Weight 86.409 06/26/2016 [facility] Height 165.1 cm 06/26/2016 [facility] Temperature Oral (F) 98.0 F 06/10/2016 [facility] Heart Rate 63 06/10/2016 [facility] Respitory Rate 20 06/10/2016 [facility] Systolic (mm Hg) 137 06/10/2016 [facility] Diastolic (mm Hg) 83 06/10/2016 [facility] Respitory Rate 20 06/10/2016 [facility] Respitory Rate 16 06/10/2016 [facility] Systolic (mm Hg) 141 06/10/2016 [facility] Diastolic (mm Hg) 86 06/10/2016 [facility] Temperature Oral (F) 98.2 F 06/10/2016 [facility] Heart Rate 67 06/10/2016 [facility] Systolic (mm Hg) 132 06/10/2016 [facility] Diastolic (mm Hg) 81 06/10/2016 [facility] Temperature Oral (F) 97.4 F 06/10/2016 [facility] Heart Rate 60 06/10/2016 [facility] Weight 89.682 06/07/2016 [facility] Height 162.56 cm 06/07/2016 [facility] BMI Calculated 18.75 06/07/2016 [facility] Weight 49.545 06/07/2016 [facility] BMI Calculated 32.68 06/06/2016 [facility] Height 162.56 cm 06/06/2016 [facility] Weight 86.364 06/06/2016 [facility] BMI Calculated 33.54 05/30/2016 [facility] Weight 88.636 05/30/2016 [facility] Height 162.56 cm 05/30/2016 [facility] Systolic (mm Hg) 131 05/30/2016 [facility] Diastolic (mm Hg) 83 05/30/2016 [facility] Heart Rate 59 05/30/2016 [facility] Weight 88 05/02/2016 [facility] BMI Calculated 33.3 05/02/2016 [facility] Heart Rate 60 05/02/2016 [facility] Height 162.56 cm 05/02/2016 [facility] Systolic (mm Hg) 106 05/02/2016 [facility] Diastolic (mm Hg) 74 05/02/2016 [facility] Heart Rate 74 03/30/2016 [facility] BMI Calculated 32.96 03/30/2016 [facility] Weight 87.091 03/30/2016 [facility] Height 162.56 cm 03/30/2016 [facility] Systolic (mm Hg) 110 03/30/2016 [facility] Diastolic (mm Hg) 72 03/30/2016 [facility] BMI Calculated 31.75 03/23/2016 [facility] Weight 86.545 03/23/2016 [facility] Height 165.1 cm 03/23/2016 [facility] Systolic (mm Hg) 124 03/23/2016 [facility] Diastolic (mm Hg) 78 03/23/2016 [facility] Heart Rate 69 03/23/2016 [facility] Respitory Rate 18 03/23/2016 [facility] Respitory Rate 18 03/10/2016 [facility] Systolic (mm Hg) 117 03/10/2016 [facility] Diastolic (mm Hg) 74 03/10/2016 [facility] Heart Rate 63 03/10/2016 [facility] Temperature Oral (F) 98 F 03/10/2016 [facility] Systolic (mm Hg) 136 03/10/2016 [facility] Diastolic (mm Hg) 84 03/10/2016 [facility] Respitory Rate 18 03/10/2016 [facility] Heart Rate 62 03/10/2016 [facility] Temperature Oral (F) 98.1 F 03/10/2016 [facility] Weight 84.091 03/10/2016 [facility] Respitory Rate 18 03/10/2016 [facility] Systolic (mm Hg) 154 03/10/2016 [facility] Diastolic (mm Hg) 84 03/10/2016 [facility] Heart Rate 58 03/10/2016 [facility] Temperature Oral (F) 97.8 F 03/10/2016 [facility] BMI Calculated 32.68 03/08/2016 [facility] Height 162.5 cm 03/08/2016 [facility] Weight 86.3 03/08/2016 [facility] BMI Calculated 32.71 03/07/2016 [facility] Weight 86.364 03/07/2016 [facility] Height 162.5 cm 03/07/2016 [facility] Height 162.56 cm 03/06/2016 [facility] BMI Calculated 32.68 03/06/2016 [facility] Heart Rate 58 02/18/2016 [facility] Systolic (mm Hg) 114 02/18/2016 [facility] Diastolic (mm Hg) 68 02/18/2016 [facility] BMI Calculated 33.03 02/18/2016 [facility] Weight 87.273 02/18/2016 [facility] Height 162.56 cm 02/18/2016 [facility] Weight 89.091 01/27/2016 [facility] Systolic (mm Hg) 123 01/27/2016 [facility] Diastolic (mm Hg) 75 01/27/2016 [facility] BMI Calculated 33.71 01/27/2016 [facility] Height 162.56 cm 01/27/2016 [facility] BMI Calculated 33.97 11/09/2015 [facility] Weight 89.773 11/09/2015 [facility] Height 162.56 cm 11/09/2015 [facility] Systolic (mm Hg) 151 11/09/2015 [facility] Diastolic (mm Hg) 78 11/09/2015 [facility] Heart Rate 69 11/09/2015 [facility] Weight 88.693 10/21/2015 [facility] BMI Calculated 33.56 10/21/2015 [facility] Height 162.56 cm 10/21/2015 [facility] Systolic (mm Hg) 122 10/21/2015 [facility] Diastolic (mm Hg) 81 10/21/2015 [facility] Heart Rate 59 10/21/2015 [facility] Heart Rate 59 09/21/2015 [facility] Height 162.56 cm 09/21/2015 [facility] Weight 87.727 09/21/2015 [facility] BMI Calculated 33.2 09/21/2015 [facility] Systolic (mm Hg) 126 09/21/2015 [facility] Diastolic (mm Hg) 76 09/21/2015 [facility] Weight 87.386 07/23/2015 [facility] Height 162.56 cm 07/23/2015 [facility] Systolic (mm Hg) 123 07/23/2015 [facility] Diastolic (mm Hg) 75 07/23/2015 [facility] BMI Calculated 33.07 07/23/2015 [facility] Heart Rate 62 07/23/2015 [facility] BMI Calculated 32.25 05/28/2015 [facility] Weight 85.227 05/28/2015 [facility] Height 162.56 cm 05/28/2015 [facility] Systolic (mm Hg) 141 05/28/2015 [facility] Diastolic (mm Hg) 85 05/28/2015 [facility] Heart Rate 65 05/28/2015 [facility] BMI Calculated 31.82 05/14/2015 [facility] Height 162.56 cm 05/14/2015 [facility] Weight 84.091 05/14/2015 [facility] Systolic (mm Hg) 128 05/14/2015 [facility] Diastolic (mm Hg) 80 05/14/2015 [facility] BMI Calculated 31.67 04/02/2015 [facility] Weight 83.693 04/02/2015 [facility] Height 162.56 cm 04/02/2015 [facility] Heart Rate 72 04/02/2015 [facility] Systolic (mm Hg) 142 04/02/2015 [facility] Diastolic (mm Hg) 80 04/02/2015 [facility] Respitory Rate 18 03/12/2015 [facility] Systolic (mm Hg) 125 03/12/2015 [facility] Diastolic (mm Hg) 72 03/12/2015 [facility] Systolic (mm Hg) 122 03/12/2015 [facility] Diastolic (mm Hg) 66 03/12/2015 [facility] Respitory Rate 18 03/12/2015 [facility] Systolic (mm Hg) 157 03/12/2015 [facility] Diastolic (mm Hg) 94 03/12/2015 [facility] Respitory Rate 18 03/12/2015 [facility] Heart Rate 56 03/12/2015 [facility] Temperature Oral (F) 98.0 F 03/12/2015 [facility] BMI Calculated 31.69 03/12/2015 [facility] Weight 83.75 03/12/2015 [facility] Height 162.56 cm 03/12/2015 [facility] Heart Rate 72 03/12/2015 [facility] Systolic (mm Hg) 118 03/12/2015 [facility] Diastolic (mm Hg) 66 03/12/2015 [facility] Systolic (mm Hg) 136 02/19/2015 [facility] Diastolic (mm Hg) 82 02/19/2015 [facility] Heart Rate 60 02/19/2015 [facility] Height 162.56 cm 02/19/2015 [facility] Weight 83.239 02/19/2015 [facility] BMI Calculated 31.5 02/19/2015 [facility] Height 162.56 cm 02/04/2015 [facility] Weight 83.409 02/04/2015 [facility] BMI Calculated 31.56 02/04/2015 [facility] Systolic (mm Hg) 130 02/04/2015 [facility] Diastolic (mm Hg) 84 02/04/2015 [facility] Heart Rate 64 02/04/2015 [facility] Temperature Oral (F) 98.6 F 02/03/2015 [facility] Heart Rate 58 02/03/2015 [facility] Respitory Rate 18 02/03/2015 [facility] Systolic (mm Hg) 119 02/03/2015 [facility] Diastolic (mm Hg) 73 02/03/2015 [facility] Systolic (mm Hg) 124 02/03/2015 [facility] Diastolic (mm Hg) 70 02/03/2015 [facility] Temperature Oral (F) 98.3 F 02/03/2015 [facility] Respitory Rate 17 02/03/2015 [facility] Heart Rate 61 02/03/2015 [facility] Systolic (mm Hg) 132 02/03/2015 [facility] Diastolic (mm Hg) 77 02/03/2015 [facility] Respitory Rate 17 02/03/2015 [facility] Heart Rate 59 02/03/2015 [facility] Temperature Oral (F) 98.2 F 02/03/2015 [facility] Height 162.56 cm 01/30/2015 [facility] BMI Calculated 30.96 01/30/2015 [facility] Weight 81.818 01/30/2015 [facility] Height 162.56 cm 01/29/2015 [facility] BMI Calculated 30.96 01/29/2015 [facility] Weight 81.818 01/29/2015 [facility] Height 162.56 cm 01/19/2015 [facility] BMI Calculated 31.88 01/19/2015 [facility] Weight 84.233 01/19/2015 [facility] Systolic (mm Hg) 122 01/19/2015 [facility] Diastolic (mm Hg) 70 01/19/2015 [facility] Heart Rate 76 01/19/2015 [facility] Heart Rate 60 12/22/2014 [facility] Height 134.62 cm 12/22/2014 [facility] BMI Calculated 46.9 12/22/2014 [facility] Weight 85 12/22/2014 [facility] Systolic (mm Hg) 134 12/22/2014 [facility] Diastolic (mm Hg) 78 12/22/2014 [facility] Systolic (mm Hg) 121 12/03/2014 [facility] Diastolic (mm Hg) 64 12/03/2014 [facility] Respitory Rate 19 12/03/2014 [facility] Heart Rate 58 12/03/2014 [facility] Temperature Oral (F) 97.8 F 12/03/2014 [facility] Respitory Rate 18 12/03/2014 [facility] Systolic (mm Hg) 140 12/03/2014 [facility] Diastolic (mm Hg) 65 12/03/2014 [facility] Temperature Oral (F) 97.8 F 12/03/2014 [facility] Heart Rate 95 12/03/2014 [facility] Respitory Rate 18 12/03/2014 [facility] Heart Rate 58 12/03/2014 [facility] Systolic (mm Hg) 101 12/03/2014 [facility] Diastolic (mm Hg) 54 12/03/2014 [facility] Weight 77.273 12/02/2014 [facility] Height 162.56 cm 12/02/2014 [facility] BMI Calculated 29.24 12/02/2014 [facility] BMI Calculated 30.62 11/30/2014 [facility] Height 162.56 cm 11/30/2014 [facility] Weight 80.909 11/30/2014 [facility] Diastolic (mm Hg) 68 05/22/2014 [facility] Heart Rate 60 05/22/2014 [facility] Systolic (mm Hg) 124 05/22/2014 [facility] Weight 80.682 05/22/2014 [facility] BMI Calculated 30.53 05/22/2014 [facility] Height 162.56 cm 05/22/2014 [facility] Height 162.56 cm 03/27/2014 [facility] Systolic (mm Hg) 118 03/27/2014 [facility] Diastolic (mm Hg) 76 03/27/2014 [facility] BMI Calculated 30.45 03/27/2014 [facility] Weight 80.455 03/27/2014 [facility] Heart Rate 74 03/27/2014 [facility] Weight 71 12/04/2013 [facility] BMI Calculated 27.73 12/04/2013 [facility] Diastolic (mm Hg) 80 12/04/2013 [facility] Systolic (mm Hg) 121 12/04/2013 [facility] Respitory Rate 18 12/04/2013 [facility] Heart Rate 52 12/04/2013 [facility] Height 160.02 cm 12/04/2013 [facility] Height 162 cm 08/18/2013 [facility] BMI Calculated 26.79 08/18/2013 [facility] Systolic (mm Hg) 114 08/18/2013 [facility] Diastolic (mm Hg) 69 08/18/2013 [facility] Heart Rate 55 08/18/2013 [facility] Respitory Rate 18 08/18/2013 [facility] Weight 70.3 08/18/2013 [facility] Heart Rate 60 07/31/2013 [facility] Respitory Rate 18 07/31/2013 [facility] Respitory Rate 18 07/31/2013 [facility] Heart Rate 59 07/31/2013 [facility] Diastolic (mm Hg) 65 07/31/2013 [facility] Systolic (mm Hg) 110 07/31/2013 [facility] Height 162.56 cm 07/31/2013 [facility] Weight 70 07/31/2013 [facility] BMI Calculated 26.49 07/31/2013 [facility] BMI Calculated 26.15 07/28/2013 [facility] Height 162.56 cm 07/28/2013 [facility] Weight 69.1 07/28/2013 [facility] Systolic (mm Hg) 131 07/28/2013 [facility] Respitory Rate 18 07/28/2013 [facility] Heart Rate 57 07/28/2013 [facility] Diastolic (mm Hg) 74 07/28/2013 [facility] Diastolic (mm Hg) 75 07/14/2013 [facility] Systolic (mm Hg) 128 07/14/2013 [facility] Respitory Rate 18 07/14/2013 [facility] Temperature Oral (F) 96.0 F 07/14/2013 [facility] Heart Rate 56 07/14/2013 [facility] Weight 68.9 07/14/2013 [facility] BMI Calculated 27.95 07/14/2013 [facility] Height 157 cm 07/14/2013 [facility] Diastolic (mm Hg) 72 06/30/2013 [facility] Respitory Rate 16 06/30/2013 [facility] Systolic (mm Hg) 122 06/30/2013 [facility] Temperature Oral (F) 97.0 F 06/30/2013 [facility] Heart Rate 60 06/30/2013 [facility] Weight 67 06/30/2013 [facility] Diastolic (mm Hg) 69 06/23/2013 [facility] Systolic (mm Hg) 118 06/23/2013 [facility] Heart Rate 56 06/23/2013 [facility] Respitory Rate 18 06/23/2013 [facility] Systolic (mm Hg) 126 06/19/2013 [facility] Diastolic (mm Hg) 68 06/19/2013 [facility] Heart Rate 54 06/19/2013 [facility] Respitory Rate 18 06/19/2013 [facility] Systolic (mm Hg) 121 06/16/2013 [facility] Respitory Rate 18 06/16/2013 [facility] Diastolic (mm Hg) 73 06/16/2013 [facility] Heart Rate 81 06/16/2013 [facility] Systolic (mm Hg) 133 06/12/2013 [facility] Diastolic (mm Hg) 75 06/12/2013 [facility] Temperature Oral (F) 97.9 F 06/12/2013 [facility] Respitory Rate 18 06/12/2013 [facility] Heart Rate 64 06/12/2013 [facility] Diastolic (mm Hg) 82 06/11/2013 [facility] Respitory Rate 18 06/11/2013 [facility] Systolic (mm Hg) 142 06/11/2013 [facility] Center Temperature Oral (F) 97.9 F 06/11/2013 [facility] Center Heart Rate 65 06/11/2013 [facility] Medical Center Heart Rate 74 06/11/2013 [facility] Medical Center Systolic (mm Hg) 128 06/11/2013 [facility] Center Temperature Oral (F) 98.1 F 06/11/2013 [facility] Medical Center Diastolic (mm Hg) 66 06/11/2013 [facility] Medical Center Respitory Rate 12 06/11/2013 [facility] Weight 72.006 06/03/2013 [facility] Center Height 162.56 cm 06/03/2013 [facility] Medical Center Systolic (mm Hg) 143 06/02/2013 [facility] Medical Center Respitory Rate 20 06/02/2013 [facility] Center Heart Rate 70 06/02/2013 [facility] Medical Center Diastolic (mm Hg) 85 06/02/2013 [facility] Center Temperature Oral (F) 98 F 06/02/2013 [facility] Center Diastolic (mm Hg) 79 06/02/2013 [facility] Center Systolic (mm Hg) 134 06/02/2013 [facility] Center Respitory Rate 18 06/02/2013 [facility] Center Heart Rate 74 06/02/2013 [facility] Temperature Oral (F) 97.9 F 06/02/2013 [facility] Medical Center Diastolic (mm Hg) 83 06/02/2013 [facility] Medical Center Systolic (mm Hg) 146 06/02/2013 [facility] Center Respitory Rate 18 06/02/2013 [facility] Temperature Oral (F) 97.9 F 06/02/2013 [facility] Center Heart Rate 66 06/02/2013 [facility] Weight 71.9 05/31/2013 [facility] Height 162.5 cm 05/31/2013 [facility] Center Weight 71 05/30/2013 [facility] Center Height 162.56 cm 05/30/2013 [facility] Medical Center Respitory Rate 18 05/27/2013 [facility] Center Respitory Rate 18 05/27/2013 [facility] Center Heart Rate 86 05/27/2013 [facility] Medical Center Diastolic (mm Hg) 76 05/27/2013 [facility] Center Systolic (mm Hg) 143 05/27/2013 [facility] Temperature Oral (F) 97.1 F 05/27/2013 [facility] Center Systolic (mm Hg) 167 05/27/2013 [facility] Center Diastolic (mm Hg) 85 05/27/2013 [facility] Center Heart Rate 81 05/27/2013 [facility] Temperature Oral (F) 98.0 F 05/27/2013 [facility] Respitory Rate 18 05/27/2013 [facility] Diastolic (mm Hg) 78 05/27/2013 [facility] Systolic (mm Hg) 147 05/27/2013 [facility] Temperature Oral (F) 98.0 F 05/27/2013 [facility] Heart Rate 69 05/27/2013 [facility] Weight 70 05/22/2013 [facility] Height 162.56 cm 05/22/2013 [facility] Weight 74.318 11/12/2012 [facility] Height 162.56 cm 11/12/2012 [facility] Diastolic (mm Hg) 71 11/12/2012 [facility] Heart Rate 57 11/12/2012 [facility] Systolic (mm Hg) 111 11/12/2012 [facility] Weight 72.727 10/15/2012 [facility] Height 162.56 cm 10/15/2012 [facility] Encounters Location Location Encounter Encounter Reason Attending ADM DC Status Source Details Type Number For Provider Date Date Visit [facility] TB [id number] PRE ROBERT 10/01 Active [facility] 1 TRANSPLA ADROG [facility] NT VISIT Center [facility] Outpatient [id number] ABDOMIAL ASAF NIÑO 11/12 Active [facility] 3 Medical [place] PRE Center TRANSPLA NT WORK UP [facility] CATHY [id number] BDDC-SWETHA ASAF NIÑO 11/27 Active [facility] 4 [facility] COLON Center NOS [facility] CATHY [id number] ASAF NIÑO 12/27 12/27 Active [facility] TB [id number] HOSEA GERARDO 05/20 Active [facility] Inpatient [id number] RECIPIEN HARRY 05/22 05/27 Active [facility] 6 T END HOBEIKA /2012 Medical [place] STAGE Center RENAL DISEASE, [facility] TP [id number] S/P ROBERT 05/29 06/27 Active [facility] 5 RENAL ADROGUE /2012 Medical Center [place]///PLE Center ASE CK IONIZED CALCIUM WITH CLINIC LA [facility] Inpatient [id number] S/P RTP CLARISSE 05/30 06/02 Active [facility] 4 , DIOMEDES DE GOLOVINE /2012 Medical [facility] Inpatient [id number] CLARISSE 06/03 06/11 Active [facility] Medical 8 DE GOLOVI Medical [facility] [place] Outpatient [id number] LAB TULIO GERARDO 06/23 Active [facility] Medical [facility] [place] Outpatient [id number] LAB TULIO HUMAIRA 06/23 Active [facility] Medical [facility] TP [id number] POST ROBERT 06/30 Active [facility] 6 CLINIC ADROG Medical Center // Center A,B,C,FK , UA,UCX [facility] OP [id number] _MAPID:E Robert 06/30 07/30 [facility] Post-Transp [id number] NCNTRRFV [facility] lant 6 [id number] [facility] [place] [id number] DIABETES CLARISSE 07/14 Active [facility] 1 DE [facility] OP [id number] _MAPID:E Clarisse 07/14 08/13 [facility] Recurring 1 [id number] NCNTRRFV De ovi [facility] [id number] [facility] TP [id number] POST ROBERT 07/28 Active [facility] 8 CLINIC ADROG [facility] [place] // Center A,B,C,FK , UA,UCX,B K,CMV [facility] [place] [id number] FOLLOW CLARISSE07/28 Active [facility] 7 UP COAG [facility] OP [id number] _MAPID:E Robert 07/28 08/27 [facility] [place] Post-Transp [id number] NCNTRRFV Adrogue [facility] lant 8 [id number] [facility] OP [id number] _MAPID:E Clarisse 07/28 08/27 [facility] [place] Recurring [id number] NCNTRRFV [facility] 7 [id number] [facility] Outpatient [id number] LAB TULIO GERARDO 07/31 Active [facility] Medical [facility] DS [id number] TRANSPLA WASIM MIKE 07/31 Active [facility] Outpatient [id number] _MAPID:E Tulio Gerardo 07/31 08/01 [place] [id number] NCNTRRFV /2013 [facility] 7 [id number] [facility] OBS [id number] _MAPID:E Clarisse 07/31 08/01 [place] Surgery 7 [id number] NCNTRRFV De [facility] [id number] [facility] OP [id number] Robert 09/01 10/01 [place] Post-Transp [address] [facility] OP [id number] Clarisse 09/08 10/08 [place] Recurring 0 De Gol[place] [facility] Outpt Diag [id number] Kaleigh 09/24 09/25 [facility] Outpatient Services 2 [facility] Imaging [facility] Phone [id number] 10/08 10/10 [place] Message Transpla Transplant nt Ctr Ctr [facility] OP [id number] Robert 12/04 01/03 [place] Post-Transp [address] [facility] OP [id number] Clarisse 12/04 01/03 [place] Recurring 4 De Golovi [facility] OP [id number] Robert 01/15 02/14 [place] Post-Transp [address] [facility] OP [id number] Clarisse 01/15 02/14 [place] Recurring 5 De Golovine /2013 [facility] OP [id number] Robert 02/12 03/14 [place] Post-Transp [address] [facility] OP [id number] Clarisse 03/06 04/05 [place] Recurring 8 De Golovi [facility] OP [id number] Robert 04/03 05/03 [place] Post-Transp [address] [facility] OP [id number] Clarisse 05/01 05/31 [place] Recurring 0 De Golovine [facility] OP [id number] Robert 05/15 06/14 [place] Post-Transp 1 Adrogue /2013 [facility] OP [id number] Clarisse 08/12 09/11 [place] Recurring 5 [place] /2014 [facility] OP [id number] Clarisse 09/21 10/21 [place] Recurring 6 [place] /2014 [facility] OP [id number] Clarisse 10/21 11/20 [place] Post-Transp 7 De Golovine /2014 [facility] OP [id number] Clarisse 11/04 12/04 [place] Recurring 8 De Gol[place]ine [facility] OBS [id number] Wasdianelys Mike 12/02 12/03 [place] Observation [facility] OP [id number] Clarisse 12/09 01/08 [place] Post-Transp 9 [place] Medical Transplant [facility] Ctr [facility] OP [id number] Clarisse 12/22 01/21 [place] Recurring 0 De Golovine [facility] Inpatient [id number] Tulio Gerardo 01/29 02/03 [place] [facility] OP [id number] Tulio Gerardo 02/04 03/06 [place] Post-Transp Medical Transplant [facility] Ctr [facility] Outpatient [id number] Clarisse 02/04 02/05 [place] 1 De Gol[place]ine /2014 [facility] OP [id number] Clarisse 02/19 03/10 [place] Recurring 3 [place] /2014 [facility] OP [id number] Clarisse 03/12 04/11 [place] Recurring 0 De [place]ine /2014 [facility] OP [id number] Clarisse 03/12 04/11 [place] Post-Transp 4 [place] [facility] [place] [facility] EC [id number] Sayda Mckinley 03/12 03/[address] [place] [address] [facility] OP [id number] Clarisse 04/23 05/23 [place] Recurring 6 De Gol[place]ine /2014 [facility] OP [id number] Clarisse 05/28 06/27 [place] Recurring 7 De [place]ine /2014 [facility] OP [id number] Clarisse 07/23 08/21 [place] Recurring 8 [place] /2015 [facility] OP [id number] Clarisse 09/20 10/20 [place] Recurring 9 De Gol[place]ine /2015 [facility] OP [id number] Clarisse 10/20 11/19 [place] Recurring 0 [place] /[address] [facility] Recurring [id number] Clarisse 01/26 02/25 [place] 2 De Gol[place] /2015 [facility] Inpatient [id number] Non 03/06 03/10 [place] 9 Physician /[address] [facility] Recurring [id number] Clarisse 03/16 04/15 [place] 3 De Gol[place] /2015 [facility] OP [id number] Tulio Gerardo 03/23 04/22 [place] Post-Transp [facility] [place] [facility] Recurring [id number] Clarisse 05/02 06/01 [place] 5 De Golovine /2015 [facility] Inpatient [id number] Alvarado 06/06 06/10 [place] 8 Boyars /[address] [facility] OP [id number] Clarisse 06/26 07/26 [place] Post-Transp 6 De Golovine /2016 Medical Transplant lant Center Ctr [facility] Recurring [id number] Clarisse 07/27 08/26 [place] 7 De Gol[place]ine /[address] [facility] Recurring [id number] Clarisse 09/21 10/21 [place] 8 De Gol[place]ine /[address] [facility] Recurring [id number] Clarisse 10/26 11/25 [place] 9 De [place] /[address] [facility] Recurring [id number] Clarisse 12/05 01/04 [place] 0 De Gol[place]ine /[address] [facility] Recurring [id number] Clarisse 01/25 02/24 [place] 1 De Gol[place] [facility] Recurring [id number] Clarisse 03/08 04/07 [place] 2 De Gol[place] [facility] OP [id number] Lily 04/23 05/23 [place] Post-Transp 3 Medical Transplant lant [place] Ctr [facility] Recurring [id number] Clarisse 05/29 06/28 [place] 4 De Golovi [facility] OP [id number] Clarisse 07/02 08/01 [place] Post-Transp 5 De Gol[place] Medical Transplant lant [place] Ctr [facility] Recurring [id number] Clarisse 07/12 08/11 [place] 7 De Golovi [facility] Recurring [id number] Clarisse 08/27 09/26 [place] 8 De [place] [facility] Recurring [id number] Clarisse 11/26 12/26 [place] 9 De ovi [facility] TH [id number] PRE TULIO Perez [address] NT VISIT Center [facility] Preadmit [id number] RENAL/DO TULIO Perez [place] [phone] NOT USE Medical [facility] Center ACCT FOR CHARGES F/C NOTES ONLY [facility] [place] [id number] UNOS TULIO GERARDO Active [place] [phone] LISTING [facility] Center Procedures Procedure Code Date Perfomer Comments Source Closed [percutaneous] [id number] 07/31/2013 [facility] [needle] Biopsy of Medical [facility] Center Diagnostic Ultrasound [id number] 07/31/2013 [facility] of Urinary System [facility] Center Renal biopsy; [id number] 07/31/2013 [facility] percutaneous, by Medical trocar or needle Center Ultrasonic guidance [id number] 07/31/2013 [facility] for needle placement Medical (eg, biopsy, Center aspiration, injection, localization device), imaging supervision and interpretation Kidney [id number] 05/23/2013 [facility] [id number] [id number] [facility] section<sup>1</sup> Medical [place] Creation of upper [id number] [facility] limb arteriovenous Medical fistula Center Renal biopsy [id number] [facility] Kidney [id number] [facility]
--- OUTSIDE RECORDS SUMMARY | 2018-08-01 03:09 | XMS REPORT | CCD ---
:1965 Author Organization [facility] Outpatient Imaging [facility] Team Providers Name Role Phone Robert Sinha Consulting Provider Allergies, Adverse Reactions, Alerts Substance Reaction Status NKDA Active
--- OUTSIDE RECORDS SUMMARY | 2018-08-01 03:09 | XMS REPORT | CCD ---
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 Chronic kidney disease (CKD) Resolved CMV Resolved DM (diabetes mellitus) type II controlled with renal Resolved manifestation ESRD (end stage renal disease) Resolved History of renal transplant Resolved HTN - Hypertension Resolved Hyperlipidemia Resolved Pancreas Resolved Polycythemia Resolved Medications Medication Instructions Start Date End Date Status normal saline 0.9% IV 1,000 1,000 mL, Rate: 150 06/01/2013 06/02/2013 Discontinued mL ml/hr, Infuse over: 6.7 hr, Route: IV, Dosing Weight 71.9 kg, Total Volume: 1,000, Start date: 06/01/13 9:31:00, Duration: 30 day, Stop date: 07/01/13 9:30:00 heparin 5,000 unit, 1 mL, 05/30/2013 06/02/2013 Discontinued Route: SUB-Q, Drug form: INJ, Q8H, Dosing Weight 71, kg, Start date: 05/30/13 16:00:00, Duration: 30 day, Stop date: 06/29/13 8:00:00porcine heparin Pepcid 20 mg, 1 tab, Route: 05/30/2013 05/30/2013 Completed PO, Drug form: TAB, ONCE, Dosing Weight 71, kg, Priority: NOW, Start date: 05/30/13 21:15:00, Stop date: 05/30/13 21:15:00(Same as: Pepcid) sulfamethoxazole-trimethopr 1 tab, Route: PO, Drug 06/02/2013 06/02/2013 Discontinued im 400 mg-80 mg oral tablet Form: TAB, Dosing Weight 71, kg, Q-M-W-, Start date: 06/02/13 9:00:00, Duration: 30 day, Stop date: 06/30/13 9:00:00On empty stomach with a glass of water. 1 hr before meals (Same As: Bactrim, Septra) Sodium Chloride 0.9% IV IV, 500 ml/hr, ONCE, 05/30/2013 05/30/2013 Completed Start date: 05/30/13 14:00:00, 1,000 ml Saline Flush 0.9% 5 ml, Route: IVP, Drug 05/30/2013 06/02/2013 Discontinued Form: INJ, Dosing Weight 71, kg, PRN, PRN Line Flush, Start date: 05/30/13 15:24:00, Duration: 30 day, Stop date: 06/29/13 15:23:00(Same as: BD Posiflush) acetaminophen-hydrocodone 1 tab, Route: PO, Drug 05/30/2013 05/30/2013 Discontinued 325 mg-5 mg oral tablet Form: TAB, Dosing Weight 71, kg, Q4H, PRN Pain Score 1-3, Start date: 05/30/13 15:24:00, Duration: 30 day, Stop date: 06/29/13 15:23:00 ondansetron 4 mg, 2 mL, Route: IVP, 05/30/2013 06/02/2013 Discontinued Drug form: INJ, ONCE, Dosing Weight 71, kg, PRN Nausea & Vomiting, Start date: 05/30/13 15:24:00(Same as: Zofran) acetaminophen 650 mg, 2 tab, Route: 05/30/2013 06/02/2013 Discontinued PO, Drug form: TAB, Q4H, Dosing Weight 71, kg, PRN Pain 1-3/Temp > 100.4 F, Start date: 05/30/13 15:24:00, Duration: 30 day, Stop date: 06/29/13 15:23:00Do not exceed 4 gm/day. (Same as: Tylenol) tacrolimus 6 mg, 6 cap, Route: PO, 05/30/2013 06/02/2013 Discontinued Drug form: CAP, [id number], Dosing Weight 71, kg, Start date: 05/30/13 20:00:00, Duration: 30 day, Stop date: 06/29/13 8:00:00Avoid grapefruit and grapefruit juice.(Same As: Prograf) sodium bicarbonate 150 mEq 1,000 mL, 500 ml/hr, 05/30/2013 05/30/2013 Deleted + sterile water 1,000 mL Route: IV, Drug Form: INJ, Dosing Weight 71, kg, Start date: 05/30/13 13:08:00, Duration: 1 doses or times, Stop date: 05/30/13 15:25:00 Epogen 10,000 unit, 1 mL, 06/02/2013 06/02/2013 Discontinued Route: SUB-Q, Drug form: INJ, QMon, Dosing Weight 71.9, kg, For Oncology Patients, Start date: 06/02/13 9:00:00, Duration: 30 day, Stop date: 06/30/13 9:00:00(Same as: Procrit) epoetin jyotsna 10,000 unit/1 ml VL Lyrica 50 mg, 1 cap, Route: 05/30/2013 06/02/2013 Discontinued PO, Drug form: CAP, Bedtime, Dosing Weight 71, kg, Start date: 05/30/13 21:00:00, Duration: 30 day, Stop date: 06/28/13 21:00:00Same as Lyrica predniSONE 30 mg, 3 tab, Route: 05/31/2013 05/31/2013 Discontinued PO, Drug form: TAB, Daily, Dosing Weight 71, kg, Start date: 05/31/13 9:00:00, Duration: 30 day, Stop date: 06/29/13 9:00:00(Same as: PredniSONE) Take with food. sodium bicarbonate 150 mEq 1,000 mL, 383.33 ml/hr, 05/30/2013 05/30/2013 Completed + sterile water 1,000 mL Route: IV, Drug Form: INJ, Dosing Weight 71, kg, Start date: 05/30/13 14:00:00, Duration: 1 doses or times, Stop date: 05/30/13 16:59:00 nystatin 100,000 units/mL 500,000 unit, 5 mL, 05/30/2013 06/02/2013 Discontinued oral suspension Route: S&SWALLOW, Drug form: SUSP, QID, Dosing Weight 71, kg, Start date: 05/30/13 17:00:00, Duration: 30 day, Stop date: 06/29/13 13:00:00(Same as:Mycostatin) Shake well. Nifediac CC 60 mg, 1 tab, Route: 05/31/2013 06/02/2013 Discontinued PO, Drug form: ERTAB, Daily, Dosing Weight 71, kg, Start date: 05/31/13 9:00:00, Duration: 30 day, Stop date: 06/29/13 9:00:00(Same as: Adalat CC, Procardia XL) Give on empty stomach. Take 1 hour before or 2 hours after meal; "Avoid grapefruit and grapefruit juice". Do not crush CellCept 1,000 mg, 2 tab, Route: 05/30/2013 06/02/2013 Discontinued PO, Drug form: TAB, [id number], Dosing Weight 71, kg, Start date: 05/30/13 20:00:00, Duration: 30 day, Stop date: 06/29/13 8:00:00SEPARATE ANTACIDS from Cellcept by 2 hrs.(Same As: CellCept) insulin glargine 15 unit, 0.15 mL, 05/31/2013 06/02/2013 Discontinued Route: SUB-Q, Drug form: INJ, Daily, Dosing Weight 71, kg, Start date: 05/31/13 9:00:00, Duration: 30 day, Stop date: 06/29/13 9:00:00Same as Lantus Solostar PEN"single patient use only" Stable for 28 days at room temperature.Expires in days from Date NovoLog FlexPen 4 unit, 0.04 mL, Route: 05/30/2013 06/02/2013 Discontinued SUB-Q, Drug form: SOLN, TID-Before Meals, Dosing Weight 71, kg, Start date: 05/30/13 16:30:00, Duration: 30 day, Stop date: 06/29/13 11:30:00Roll in palms of hands gently; Do not shake vigorously. (Same as: NovoLog)"single patient use only" Stable for 28 days at room temperature.Expires in days from Date Prograf 4 mg, 4 cap, Route: PO, 06/01/2013 06/02/2013 Discontinued Drug form: CAP, [id number], Dosing Weight 71.9, kg, Start date: 06/01/13 8:00:00, Duration: 30 day, Stop date: 06/30/13 20:00:00Avoid grapefruit and grapefruit juice.(Same As: Prograf) Pepcid 20 mg oral tablet 20 mg, 1 tab, Route: 05/31/2013 06/02/2013 Discontinued PO, Drug form: TAB, Daily, Dosing Weight 71, kg, Start date: 05/31/13 9:00:00, Duration: 30 day, Stop date: 06/29/13 9:00:00(Same as: Pepcid) Colace 100 mg oral capsule 100 mg, 1 cap, Route: 05/30/2013 06/02/2013 Discontinued PO, Drug form: CAP, Daily, Dosing Weight 71, kg, PRN as needed for constipation, Start date: 05/30/13 15:29:00, Duration: 30 day, Stop date: 06/29/13 15:28:00(Same as: Colace) (Do Not Crush) cholecalciferol 2,000 IntlUnit, 1 cap, 05/31/2013 06/02/2013 Discontinued Route: PO, Drug form: CAP, Daily, Dosing Weight 71, kg, Start date: 05/31/13 9:00:00, Duration: 30 day, Stop date: 06/29/13 9:00:00Same as: Vitamin D3 carvedilol 12.5 mg, 1 tab, Route: 05/30/2013 06/02/2013 Discontinued PO, Drug form: TAB, Q12H, Dosing Weight 71, kg, Start date: 05/30/13 21:00:00, Duration: 30 day, Stop date: 06/29/13 9:00:00Give with food. (Same As: Coreg) valganciclovir 450 mg, 1 tab, Route: 06/02/2013 06/02/2013 Discontinued PO, Drug form: TAB, QMon, Dosing Weight 71, kg, Start date: 06/02/13 9:00:00, Duration: 30 day, Stop date: 06/30/13 9:00:00(Same as: Valcyte)"Do Not Crush" [place] 10/325 oral tablet 1 tab, Route: PO, Drug 05/30/2013 06/02/2013 Discontinued Form: TAB, Dosing Weight 71, kg, Q6H, PRN as needed for pain, Start date: 05/30/13 15:29:00, Duration: 30 day, Stop date: 06/29/13 15:28:00Do not exceed 4gm/day of acetaminophen. (Same as: [place] 325/10) insulin aspart 1 unit, 0.01 mL, Route: 05/30/2013 06/02/2013 Discontinued SUB-Q, Drug form: SOLN, TID-Before Meals, Dosing Weight 71, kg, PRN Blood Glucose Results, Start date: 05/30/13 15:42:00, Duration: 30 day, Stop date: 06/29/13 15:41:00Roll in palms of hands gently; Do not shake vigorously. (Same as: NovoLog)"single patient use only" Stable for 28 days at room temperature.Expires in days from Date insulin aspart 2 unit, 0.02 mL, Route: 05/30/2013 06/02/2013 Discontinued SUB-Q, Drug form: SOLN, TID-Before Meals, Dosing Weight 71, kg, PRN Blood Glucose Results, Start date: 05/30/13 15:42:00, Duration: 30 day, Stop date: 06/29/13 15:41:00Roll in palms of hands gently; Do not shake vigorously. (Same as: NovoLog)"single patient use only" Stable for 28 days at room temperature.Expires in days from Date Dextrose 50% Syringe 12.5 gm, 25 mL, Route: 05/30/2013 05/31/2013 Discontinued IVP, Drug Form: INJ, Dosing Weight 71, kg, PRN, PRN Blood Glucose Results, Start date: 05/30/13 15:42:00, Duration: 30 day, Stop date: 06/29/13 15:41:00 Dextrose 50% Syringe 25 gm, 50 mL, Route: 05/30/2013 05/31/2013 Discontinued IVP, Drug Form: INJ, Dosing Weight 71, kg, PRN, PRN Blood Glucose Results, Start date: 05/30/13 15:42:00, Duration: 30 day, Stop date: 06/29/13 15:41:00 glucagon 1 mg, Route: IM, Drug 05/30/2013 06/01/2013 Discontinued form: PDR/INJ, PRN, Dosing Weight 71, kg, PRN Blood Glucose Results, Start date: 05/30/13 15:42:00, Duration: 30 day, Stop date: 06/29/13 15:41:00 insulin aspart 3 unit, 0.03 mL, Route: 05/30/2013 06/02/2013 Discontinued SUB-Q, Drug form: SOLN, TID-Before Meals, Dosing Weight 71, kg, PRN Blood Glucose Results, Start date: 05/30/13 15:42:00, Duration: 30 day, Stop date: 06/29/13 15:41:00(Same as: Novolog) insulin aspart 4 unit, 0.04 mL, Route: 05/30/2013 06/02/2013 Discontinued SUB-Q, Drug form: SOLN, TID-Before Meals, Dosing Weight 71, kg, PRN Blood Glucose Results, Start date: 05/30/13 15:42:00, Duration: 30 day, Stop date: 06/29/13 15:41:00Roll in palms of hands gently; Do not shake vigorously. (Same as: NovoLog)"single patient use only" Stable for 28 days at room temperature.Expires in days from Date insulin aspart 5 unit, 0.05 mL, Route: 05/30/2013 06/02/2013 Discontinued SUB-Q, Drug form: SOLN, TID-Before Meals, Dosing Weight 71, kg, PRN Blood Glucose Results, Start date: 05/30/13 15:42:00, Duration: 30 day, Stop date: 06/29/13 15:41:00Roll in palms of hands gently; Do not shake vigorously. (Same as: NovoLog)"single patient use only" Stable for 28 days at room temperature.Expires in days from Date sodium bicarbonate 1,300 mg, 2 tab, Route: 06/01/2013 06/02/2013 Discontinued PO, Drug form: TAB, BID, Dosing Weight 71.9, kg, Start date: 06/01/13 9:00:00, Duration: 30 day, Stop date: 06/30/13 17:00:00"Dissolve tablet in a glass of water prior to oral administration. STOMACH WARNING: To avoid serious injury, do not take until tablet is completely dissolved. It is very important not to take this product when overly full from food or drink." normal saline 0.9% IV 1,000 1,000 mL, Rate: 150 05/30/2013 05/31/2013 Discontinued mL ml/hr, Infuse over: 6.7 hr, Route: IV, Dosing Weight 71 kg, Total Volume: 1,000, Start date: 05/30/13 15:28:00, Duration: 30 day, Stop date: 06/29/13 15:27:00 insulin aspart 2 unit, 0.02 mL, Route: 05/31/2013 06/02/2013 Discontinued SUB-Q, Drug form: SOLN, Bedtime, Dosing Weight 71.9, kg, PRN Blood Glucose Results, Start date: 05/31/13 20:59:00, Duration: 30 day, Stop date: 06/30/13 20:58:00Roll in palms of hands gently; Do not shake vigorously. (Same as: NovoLog)"single patient use only" Stable for 28 days at room temperature.Expires in days from Date insulin aspart 4 unit, 0.04 mL, Route: 05/31/2013 06/02/2013 Discontinued SUB-Q, Drug form: SOLN, Bedtime, Dosing Weight 71.9, kg, PRN Blood Glucose Results, Start date: 05/31/13 20:59:00, Duration: 30 day, Stop date: 06/30/13 20:58:00Roll in palms of hands gently; Do not shake vigorously. (Same as: NovoLog)"single patient use only" Stable for 28 days at room temperature.Expires in days from Date insulin aspart 1 unit, 0.01 mL, Route: 05/31/2013 06/02/2013 Discontinued SUB-Q, Drug form: SOLN, Bedtime, Dosing Weight 71.9, kg, PRN Blood Glucose Results, Start date: 05/31/13 20:59:00, Duration: 30 day, Stop date: 06/30/13 20:58:00Roll in palms of hands gently; Do not shake vigorously. (Same as: NovoLog)"single patient use only" Stable for 28 days at room temperature.Expires in days from Date insulin aspart 3 unit, 0.03 mL, Route: 05/31/2013 06/02/2013 Discontinued SUB-Q, Drug form: SOLN, Bedtime, Dosing Weight 71.9, kg, PRN Blood Glucose Results, Start date: 05/31/13 20:59:00, Duration: 30 day, Stop date: 06/30/13 20:58:00Roll in palms of hands gently; Do not shake vigorously. (Same as: NovoLog)"single patient use only" Stable for 28 days at room temperature.Expires in days from Date Dextrose 50% Syringe 12.5 gm, 25 mL, Route: 05/31/2013 06/02/2013 Discontinued IVP, Drug Form: INJ, Dosing Weight 71.9, kg, PRN, PRN Blood Glucose Results, Start date: 05/31/13 20:59:00, Duration: 30 day, Stop date: 06/30/13 20:58:00 Dextrose 50% Syringe 25 gm, 50 mL, Route: 05/31/2013 06/02/2013 Discontinued IVP, Drug Form: INJ, Dosing Weight 71.9, kg, PRN, PRN Blood Glucose Results, Start date: 05/31/13 20:59:00, Duration: 30 day, Stop date: 06/30/13 20:58:00 glucagon 1 mg, Route: IM, Drug 05/31/2013 06/02/2013 Discontinued form: PDR/INJ, PRN, Dosing Weight 71.9, kg, PRN Blood Glucose Results, Start date: 05/31/13 20:59:00, Duration: 30 day, Stop date: 06/30/13 20:58:00 sodium bicarbonate 150 mEq 1,000 mL, Rate: 150 05/31/2013 06/01/2013 Discontinued + D5W 1,000 mL ml/hr, Infuse over: 7.7 hr, Route: IV, Dosing Weight 71.9 kg, Total Volume: 1,150 mL, Start date: 05/31/13 6:45:00, Duration: 30 day, Stop date: 06/30/13 6:44:00 SoluMedrol + Sodium 500 mg, Route: IVPB, 05/31/2013 06/02/2013 Completed Chloride 0.9% IV 50 mL Drug form: INJ, Daily, Dosing Weight 71.9, kg, Start date: 05/31/13 9:00:00, Duration: 3 doses or times, Stop date: 06/02/13 9:00:00(Same as:Solu-Medrol, A-Methapred) Vital Signs Most recent to oldest 1 2 3 [Reference Range]: Height 162.5 cm 162.56 cm (05/30/2013 23:48:00) (05/30/2013 12:55:00) Current Weight 73.004 kg 79.002 kg 71.006 kg (06/02/2013 05:26:00) (06/01/2013 00:18:00) (05/31/2013 04:44:00) Temperature Oral 98 DegF 97.9 DegF 97.9 DegF [96.4-99.1 DegF] (06/02/2013 12:00:00) (06/02/2013 08:00:00) (06/02/2013 04: 15:00) Systolic Blood Pressure 143 mmHg 134 mmHg 146 mmHg [90-140 mmHg] *HI* (06/02/2013 08:00:00) *HI* (06/02/2013 12:00:00) (06/02/2013 04:15:00) Diastolic Blood Pressure 85 mmHg 79 mmHg 83 mmHg [60-90 mmHg] (06/02/2013 12:00:00) (06/02/2013 08:00:00) (06/02/2013 04:15: 00) Respiratory Rate [14-20 20 BRMIN 18 BRMIN 18 BRMIN BRMIN] (06/02/2013 12:00:00) (06/02/2013 08:00:00) (06/02/2013 04:15:00) Peripheral Pulse Rate 70 bpm 74 bpm 66 bpm [60-100 bpm] (06/02/2013 12:00:00) (06/02/2013 08:00:00) (06/02/2013 04:15: 00) Weight 71.9 kg 71 kg (05/30/2013 23:48:00) (05/30/2013 12:55:00) Results INFECTIOUS DISEASES Most recent to oldest [Reference Range]: 1 2 3 Source CMV PCR Qnt Blood *NA* (05/31/2013 10:00:00) CMV PCR Qnt [Negative] Negative (05/31/2013 10:00:00) CMV PCR Qnt (log) <2.4 log 1 *NA* (05/31/2013 10:00:00) 1Interpretive Data: Analytic Quantification Range: 250-2,500,000 copies/mL (2.4- 6.4 log) CMV DNA detected below 250 copies/mL will be resulted as "CMV DNA detected, less than 250 copies/mL." No target [...] basis for clinical diagnosis, treatment or patient management.Performance characteristics have been verified by the [facility] within [facility]. The [facility] is authorized under the Clinical Laboratory Improvement Amendments of 1988 (CLIA-88) to perform high complexity testing.BEDSIDE GLUCOSE TESTING Most recent to oldest 1 2 3 [Reference Range]: Glucose POC [70-99 152 mg/dL 2 134 mg/dL 3 169 mg/dL 4 mg/dL] *HI* *HI* *HI* (06/02/2013 12:45:00) (06/02/2013 10:01:00) (06/01/2013 23:46:00) Gluc POC Comment 1 Notified RN/MD Notified RN/MD Notified RN/MD *NA* *NA* *NA* (06/01/2013 18:30:00) (06/01/2013 08:46:00) (05/31/2013 17:35:00) 2Interpretive Data: Upper Reportable Limit: 200 mg/dL.3Interpretive Data: Upper Reportable Limit: 200 mg/dL.4Interpretive Data: Upper Reportable Limit: 200 mg/dL.URINALYSIS Most recent to oldest [Reference Range]: 1 2 3 UA Turbidity [Clear] Clear (05/31/2013 10:20:00) UA Color [Yellow] Light Yellow *NA* (05/31/2013 10:20:00) UA pH [5.0-8.0] 5.5 (05/31/2013 10:20:00) UA Spec Grav [<=1.030] 1.007 (05/31/2013 10:20:00) UA Glucose [Negative mg/dL] Negative mg/dL *NA* (05/31/2013 10:20:00) UA Blood [Negative] Moderate *ABN* (05/31/2013 10:20:00) UA Ketones [Negative mg/dL] Negative mg/dL *NA* (05/31/2013 10:20:00) UA Protein [Negative mg/dL] 20 mg/dL *ABN* (05/31/2013 10:20:00) UA Urobilinogen [0.1-1.0 mg/dL] <=1.0 mg/dL *NA* (05/31/2013 10:20:00) UA Bili [Negative] Negative *NA* (05/31/2013 10:20:00) UA Leuk Est [Negative] Negative (05/31/2013 10:20:00) UA Nitrite [Negative] Negative (05/31/2013 10:20:00) UA WBC [0-5 /HPF] 3 /HPF (05/31/2013 10:20:00) UA RBC [0-2 /HPF] 4 /HPF *HI* (05/31/2013 10:20:00) UA Bacteria [None Seen /HPF] Occasional /HPF *NA* (05/31/2013 10:20:00) UA Sq Epi None Seen *NA* (05/31/2013 10:20:00) UA Mucus [None Seen /LPF] Few /LPF *NA* (05/31/2013 10:20:00) CHEMISTRY Most recent to oldest 1 2 3 [Reference Range]: Sodium Lvl [135-145 mEq/L] 138 mEq/L 136 mEq/L 138 mEq/L (06/02/2013 05:35:00) (06/01/2013 05:40:00) (05/31/2013 10:00:00) Potassium Lvl [3.5-5.1 4.2 mEq/L 4.2 mEq/L 3.8 mEq/L mEq/L] (06/02/2013 05:35:00) (06/01/2013 05:40:00) (05/31/2013 10:00:00) Chloride Lvl [95-109 mEq/L] 106 mEq/L 102 mEq/L 109 mEq/L (06/02/2013 05:35:00) (06/01/2013 05:40:00) (05/31/2013 10:00:00) CO2 [24-32 mEq/L] 22 mEq/L 23 mEq/L 16 mEq/L *LOW* *LOW* *LOW* (06/02/2013 05:35:00) (06/01/2013 05:40:00) (05/31/2013 10:00:00) AGAP [10.0-20.0 mEq/L] 14.2 mEq/L 15.2 mEq/L 16.8 mEq/L (06/02/2013 05:35:00) (06/01/2013 05:40:00) (05/31/2013 10:00:00) Creatinine Lvl [0.5-1.4 1.5 mg/dL 2.2 mg/dL 3.4 mg/dL mg/dL] *HI* *HI* *HI* (06/02/2013 05:35:00) (06/01/2013 05:40:00) (05/31/2013 10:00:00) eGFR 41 mL/min/1.73m2 5 26 mL/min/1.73m2 6 15 mL/min/1.73m2 7 *NA* *NA* *NA* (06/02/2013 05:35:00) (06/01/2013 05:40:00) (05/31/2013 10:00:00) BUN [7-22 mg/dL] 28 mg/dL 43 mg/dL 64 mg/dL *HI* *HI* *HI* (06/02/2013 05:35:00) (06/01/2013 05:40:00) (05/31/2013 10:00:00) Glucose Lvl [70-99 mg/dL] 142 mg/dL 8 246 mg/dL 9 82 mg/dL 10 *HI* *HI* (05/31/2013 10:00:00) (06/02/2013 05:35:00) (06/01/2013 05:40:00) Total Protein [6.4-8.4 5.6 g/dL g/dL] *LOW* (05/31/2013 05:35:00) Albumin Lvl [3.5-5.0 g/dL] 3.2 g/dL *LOW* (05/31/2013 05:35:00) Globulin [2.0-4.0 g/dL] 2.4 g/dL (05/31/2013 05:35:00) A/G Ratio [0.7-1.6] 1.3 (05/31/2013 05:35:00) Calcium Lvl [8.5-10.5 8.7 mg/dL 8.7 mg/dL 9.0 mg/dL mg/dL] (06/02/2013 05:35:00) (06/01/2013 05:40:00) (05/31/2013 10:00:00) Phosphorus [2.5-4.5 mg/dL] 2.5 mg/dL 2.7 mg/dL 3.7 mg/dL (06/02/2013 05:35:00) (06/01/2013 05:40:00) (05/31/2013 05:35:00) Magnesium Lvl [1.8-2.4 1.8 mg/dL 2.0 mg/dL 2.2 mg/dL mg/dL] (06/02/2013 05:35:00) (06/01/2013 05:40:00) (05/31/2013 05:35:00) ALT [0-65 unit/L] 62 unit/L (05/31/2013 05:35:00) AST [0-37 unit/L] 25 unit/L (05/31/2013 05:35:00) Alk Phos [39-136 unit/L] 78 unit/L (05/31/2013 05:35:00) Bili Total [0.2-1.3 mg/dL] 0.3 mg/dL (05/31/2013 05:35:00) Bili Direct [0.0-0.3 mg/dL] 0.1 mg/dL (05/31/2013 05:35:00) Bili Indirect [0.0-1.0 0.2 mg/dL mg/dL] (05/31/2013 05:35:00) Tacrolimus Lvl [5.0-15.0 9.2 ng/mL 6.6 ng/mL 15.4 ng/mL ng/mL] (06/02/2013 05:35:00) (06/01/2013 05:40:00) *HI* (05/31/2013 05:35:00) U Creatinine 61.3 mg/dL 11 *NA* (05/31/2013 10:20:00) U Protein 36.3 mg/dL 12 *NA* (05/31/2013 10:20:00) U Prot/Creat 0.6 *NA* (05/31/2013 10:20:00) 5Result Comment: The eGFR is calculated using the CKD-EPI formula. In most young , healthy individualsthe eGFR will be >90 mL/min/1.73m2. The eGFR declines with age. An eGFR of 60-89 may be normal in some populations, particularly the elderly, for whom the CKD-EPI formula has not been extensively validated. Use of the eGFR is not recommended in the following populations: Individuals with unstable creatinine concentrations, including patients and those with serious co-morbid conditions. Patients with extremes in muscle mass or diet. The data above are obtained from the National Kidney Disease Education Program ( NKDEP) which additionally recommends that when the eGFR is used in patients with extremes of body mass index for purposesof drug dosing, the eGFR should be multiplied by the estimated BMI.6Result Comment: The eGFR is calculated using the CKD-EPI formula. In most young, healthy individualsthe eGFR will be >90 mL/ min/1.73m2. The eGFR declines with age. An eGFR of 60-89 may be normal in some populations, particularly the elderly, for whom the CKD-EPI formula has not been extensively validated. Use of the eGFR is not recommended in the following populations: Individuals with unstable creatinine concentrations, including patients and those with serious co-morbid conditions. Patients with extremes in muscle mass or diet. The data above are obtained from the National Kidney Disease Education Program ( NKDEP) which additionally recommends that when the eGFR is used in patients with extremes of body mass index for purposesof drug dosing, the eGFR should be multiplied by the estimated BMI.7Result Comment: The eGFR is calculated using the CKD-EPI formula. In most young, healthy individualsthe eGFR will be >90 mL/ min/1.73m2. The eGFR declines with age. An eGFR of 60-89 may be normal in some populations, particularly the elderly, for whom the CKD-EPI formula has not been extensively validated. Use of the eGFR is not recommended in the following populations: Individuals with unstable creatinine concentrations, including patients and those with serious co-morbid conditions. Patients with extremes in muscle mass or diet. The data above are obtained from the National Kidney Disease Education Program ( NKDEP) which additionally recommends that when the eGFR is used in patients with extremes of body mass index for purposesof drug dosing, the eGFR should be multiplied by the estimated BMI.8Interpretive Data: Adult reference range values reflect the clinical guidelines of the [place] [employer].9Interpretive Data: Adult reference range values reflect the clinical guidelines of the [place] [employer].10Interpretive Data: Adult reference range values reflect the clinical guidelines of the [place] [employer].11Interpretive Data: No established reference ranges.12Interpretive Data: No established reference ranges.HEMATOLOGY Most recent to oldest 1 2 3 [Reference Range]: WBC [3.7-10.4 K/CMM] 5.0 K/CMM 4.3 K/CMM 4.3 K/CMM (06/02/2013 05:35:00) (06/01/2013 05:40:00) (05/31/2013 05:35:00) RBC [4.20-5.40 M/CMM] 2.70 M/CMM 2.66 M/CMM 2.84 M/CMM *LOW* *LOW* *LOW* (06/02/2013 05:35:00) (06/01/2013 05:40:00) (05/31/2013 05:35:00) Hgb [12.0-16.0 g/dL] 8.2 g/dL 7.9 g/dL 8.5 g/dL *LOW* *LOW* *LOW* (06/02/2013 05:35:00) (06/01/2013 05:40:00) (05/31/2013 05:35:00) Hct [36.0-48.0 %] 23.9 % 23.3 % 24.8 % *LOW* *LOW* *LOW* (06/02/2013 05:35:00) (06/01/2013 05:40:00) (05/31/2013 05:35:00) MCV [81.0-99.0 fL] 88.6 fL 87.4 fL 87.4 fL (06/02/2013 05:35:00) (06/01/2013 05:40:00) (05/31/2013 05:35:00) MCH [27.0-31.0 pg] 30.5 pg 29.7 pg 29.9 pg (06/02/2013 05:35:00) (06/01/2013 05:40:00) (05/31/2013 05:35:00) MCHC [32.0-36.0 g/dL] 34.4 g/dL 34.0 g/dL 34.2 g/dL (06/02/2013 05:35:00) (06/01/2013 05:40:00) (05/31/2013 05:35:00) RDW [11.5-14.5 %] 14.2 % 14.2 % 14.1 % (06/02/2013 05:35:00) (06/01/2013 05:40:00) (05/31/2013 05:35:00) Platelet [133-450 K/CMM] 118 K/CMM 135 K/CMM 143 K/CMM *LOW* (06/01/2013 05:40:00) (05/31/2013 05:35:00) (06/02/2013 05:35:00) MPV [7.4-10.4 fL] 9.5 fL 9.5 fL 9.2 fL (06/02/2013 05:35:00) (06/01/2013 05:40:00) (05/31/2013 05:35:00) Segs [45.0-75.0 %] 86.9 % 84.0 % 70.0 % *HI* *HI* (05/31/2013 05:35:00) (06/02/2013 05:35:00) (06/01/2013 05:40:00) Lymphocytes [20.0-40.0 %] 10.0 % 10.0 % 18.0 % *LOW* *LOW* *LOW* (06/02/2013 05:35:00) (06/01/2013 05:40:00) (05/31/2013 05:35:00) Monocytes [2.0-12.0 %] 3.0 % 5.8 % 10.1 % (06/02/2013 05:35:00) (06/01/2013 05:40:00) (05/31/2013 05:35:00) Eosinophils [0.0-4.0 %] 0.1 % 1.6 % (06/01/2013 05:40:00) (05/31/2013 05:35:00) Basophils [0.0-1.0 %] 0.1 % 0.1 % 0.3 % (06/02/2013 05:35:00) (06/01/2013 05:40:00) (05/31/2013 05:35:00) Segs-Bands # [1.5-8.1 4.3 K/CMM 3.6 K/CMM 3.0 K/CMM K/CMM] (06/02/2013 05:35:00) (06/01/2013 05:40:00) (05/31/2013 05:35:00) Lymphocytes # [1.0-5.5 0.5 K/CMM 0.4 K/CMM 0.8 K/CMM K/CMM] *LOW* *LOW* *LOW* (06/02/2013 05:35:00) (06/01/2013 05:40:00) (05/31/2013 05:35:00) Monocytes # [0.0-0.8 0.2 K/CMM 0.2 K/CMM 0.4 K/CMM K/CMM] (06/02/2013 05:35:00) (06/01/2013 05:40:00) (05/31/2013 05:35:00) Eosinophils # [0.0-0.5 0.1 K/CMM K/CMM] (05/31/2013 05:35:00) PB Smear Path Peripheral blood smear shows hypochromic anemia with anisopoikilocytosis, slight polychromasia. Impression: iron deficiency anemia vs. anemia of chronic disease. CPT: 40749 *NA* (05/31/2013 10:00:00) PTT [22.9-35.8 seconds] 32.8 seconds 13 (05/30/2013 19:21:00) 13Interpretive Data: Heparin Therapeutic Range: 57 - 92 SecondsIMMUNOLOGY Most recent to oldest [Reference Range]: 1 2 3 Haptoglobin [16-200 mg/dL] 159 mg/dL (05/31/2013 10:00:00) Procedures Procedures Date Related Diagnosis Kidney transplantation
--- OUTSIDE RECORDS SUMMARY | 2018-08-01 03:09 | XMS REPORT | CCD ---
:1965 Author Organization [facility] Care Team Providers Name Role Phone Jus Johnson Consulting Provider Robert Sinha Referring Provider Allergies, Adverse Reactions, Alerts Substance Reaction Status NKDA Active Medications Medication Instructions Start Date End Date Status ferrous sulfate 325 mg oral Substitution Allowed 11/12/2012 Ordered enteric coated tablet Lyrica 50 mg oral capsule 50 mg, 1 cap, PO, TID, 11/12/2012 Ordered Substitution Allowed, CAP Renvela 800 mg oral tablet Substitution Allowed 11/12/2012 Ordered amLODipine 10 mg oral tablet 10 mg, 1 tab, PO, Daily, 30 11/12/2012 Ordered tab, Substitution Allowed, TAB Vital Signs Most recent to oldest [Reference Range]: 1 Height 162.56 cm (11/12/2012 14:41:00) Systolic Blood Pressure [90-140 mmHg] 111 mmHg (11/12/2012 14:41:00) Diastolic Blood Pressure [60-90 mmHg] 71 mmHg (11/12/2012 14:41:00) Peripheral Pulse Rate [60-100 bpm] 57 bpm *LOW* (11/12/2012 14:41:00) Weight 74.318 kg (11/12/2012 14:41:00)
--- OUTSIDE RECORDS SUMMARY | 2018-08-01 03:09 | XMS REPORT | CCD ---
:1965 Author Organization [facility] Care Team Providers Name Role Phone Hema Donahue Referring Provider Robert Sinha Consulting Provider Allergies, Adverse Reactions, Alerts Substance Reaction Status NKDA Active Vital Signs Most recent to oldest [Reference Range]: 1 Height 162.56 cm (10/15/2012 07:55:00) Weight 72.727 kg (10/15/2012 07:55:00) Results INFECTIOUS DISEASES Most recent to oldest [Reference Range]: 1 2 Source BK Virus PCR Qnt Plasma *NA* (10/01/2012 07:20:00) BK Virus PCR Qnt [Negative] Negative (10/01/2012 07:20:00) BK Virus PCR Qnt (log) <2.0 log 1 *NA* (10/01/2012 07:20:00) 1Interpretive Data: Analytic Quantification Range: 100-400,000,000 copies/mL ( 2.0-8.6 log) BK DNA detected below 100 copies/mL will be resulted as "BK DNA detected, less than 100 copies/mL." No target BK DNA detected will be reported as "BK DNA not detected." A negative result does [...] verified by the [facility] within [facility]. The [facility] is authorized under the Clinical Laboratory Improvement Amendments of 1988 (CLIA-88) to perform high complexity testing.PARASITOLOGY - SEROLOGY Most recent to oldest [Reference Range]: 1 2 Strongyloides Antibodies <1.00 2 *NA* (10/01/2012 07:20:00) 2Result Comment: REFERENCE RANGE: <1.00 INTERPRETIVE CRITERIA: <1.00 Antibody Not Detected > or=1.00 Antibody [...] its performance characteristics have been determined by [facility]. Performance characteristics refer to the analytical performance of the test. Test Performed at: [facility], [employer]. [address] [place] [address]. [place] [address] Garry Diop [facility] RESULTS Most recent to oldest [Reference 1 2 Range]: ABO/Rh O POS O POS *Unknown* *Unknown* (10/01/2012 09:10:00) (10/01/2012 08:06:00) CHEMISTRY Most recent to oldest [Reference Range]: 1 2 Sodium Lvl [135-145 mEq/L] 137 mEq/L (10/01/2012 07:20:00) Potassium Lvl [3.5-5.1 mEq/L] 3.9 mEq/L (10/01/2012 07:20:00) Chloride Lvl [95-109 mEq/L] 97 mEq/L (10/01/2012 07:20:00) CO2 [24-32 mEq/L] 24 mEq/L (10/01/2012 07:20:00) AGAP [10.0-20.0 mEq/L] 19.9 mEq/L (10/01/2012 07:20:00) Creatinine Lvl [0.5-1.4 mg/dL] 8.0 mg/dL *HI* (10/01/2012 07:20:00) eGFR 5 mL/min/1.73m2 3 *NA* (10/01/2012 07:20:00) BUN [7-22 mg/dL] 44 mg/dL *HI* (10/01/2012 07:20:00) B/C Ratio [6-25] 6 (10/01/2012 07:20:00) Glucose Lvl [70-99 mg/dL] 166 mg/dL 4 *HI* (10/01/2012 07:20:00) Uric Acid [2.5-7.0 mg/dL] 3.8 mg/dL (10/01/2012 07:20:00) Total Protein [6.4-8.4 g/dL] 7.8 g/dL (10/01/2012 07:20:00) Albumin Lvl [3.5-5.0 g/dL] 4.2 g/dL (10/01/2012:20:00) Globulin [2.0-4.0 g/dL] 3.6 g/dL (10/01/2012 07:20:00) A/G Ratio [0.7-1.6] 1.2 (10/01/2012:20:00) Calcium Lvl [8.5-10.5 mg/dL] 9.4 mg/dL (10/01/2012 07:20:00) Phosphorus [2.5-4.5 mg/dL] 5.7 mg/dL *HI* (10/01/2012 07:20:00) ALT [0-65 unit/L] 20 unit/L (10/01/2012 07:20:00) AST [0-37 unit/L] 10 unit/L (10/01/2012 07:20:00) Alk Phos [39-136 unit/L] 70 unit/L (10/01/2012 07:20:00) LDH [98-192 unit/L] 164 unit/L (10/01/2012 07:20:00) Bili Total [0.2-1.3 mg/dL] 0.4 mg/dL (10/01/2012 07:20:00) Vitamin D, 25-OH, Total [30-100 ng/mL] <13 ng/mL 5 *ABN* (10/01/2012 07:20:00) CHD Risk [3.90-5.80] 3.09 *LOW* (10/01/2012 07:20:00) Chol [120-200 mg/dL] 179 mg/dL (10/01/2012 07:20:00) Trig [0-200 mg/dL] 169 mg/dL (10/01/2012 07:20:00) HDL [>=35 mg/dL] 58 mg/dL (10/01/2012 07:20:00) LDL [0-129 mg/dL] 87 mg/dL (10/01/2012 07:20:00) LDL Direct [0-129 mg/dL] 86 mg/dL (10/01/2012 07:20:00) Hgb A1C 5.2 % 6 *NA* (10/01/2012 07:20:00) Iron [30-160 ug/dl] 116 ug/dl (10/01/2012 07:20:00) Transferrin [212-360 mg/dL] 187 mg/dL *LOW* (10/01/2012 07:20:00) PTH Intact [11.1-79.5 pg/mL] 523.2 pg/mL *HI* (10/01/2012 07:20:00) Opiate Scr [Negative] Negative (10/01/2012 07:20:00) Cannab Scr [Negative] Negative (10/01/2012 07:20:00) Amph Scr [Negative] Negative (10/01/2012 07:20:00) Cocaine Scr [Negative] Negative (10/01/2012 07:20:00) PCP Scr [Negative] Negative (10/01/2012 07:20:00) Temi Scr [Negative] Negative (10/01/2012 07:20:00) Benzodiaz Scr [Negative] Negative (10/01/2012 07:20:00) Propoxyphn Scr [Negative] Negative (10/01/2012 07:20:00) Methadone Scr [Negative] Negative (10/01/2012 07:20:00) Cutoff Values See Note 7 (10/01/2012 07:20:00) Immune Cell Func 459 8 *NA* (10/01/2012 07:20:00) hCG Tot <1 mIU/mL 9 *NA* (10/01/2012 07:20:00) 3Result Comment: The eGFR is calculated using [...] eGFR should be multiplied by the estimated BMI.4Interpretive Data: Adult reference range values reflect the clinical guidelines of the [place] [employer].5Interpretive Data: Reference range is based on recommendations in the Endocrine Society Clinical Practice Guideline (J Clin Endocrinol Metab 2011;96:5477-5675)6Interpretive Data: HbA1C% eAG(mg/dL) Interpretation 6.0 126 Very good control 6.5 140 Very good control 7.0 154 Good Control 7.5 169 Good Control 8.0 183 Marginal Control, take action to lower 8.5 197 Marginal Control, take action to lower 9.0 212 Poor Control, take action to lower 9.5 226 Poor Control, take action to lower 10.0 240 Poor Control, take action to [id number] Data: Cutoff (lowest detectable by EIA) values for Serum Drugscreen: THC and PCP: 1 ng/mL All others: 20 ng/mL Cutoff (lowest detectable by GC/MS) value for confirmation: THC and PCP: 1 ng/mL Benzodiazepines: 5 ng/ml All others: 10 ng/ml Test performed by [facility] [address] [place] [address] [id number] Comment: Reference Range < dh=067 Low immune cell response 226-524 Moderate immune cell response > xj=924 High immune cell response Test Performed at: [facility] [address] [address] TIKI DUARTE M.D.9Interpretive Data: Reference Range : Male 0 - 5 mIU/mL Non- Female 0 - 5 mIU/mL Note: hCG result should be used in [...] 17 8,175 - 55,868 18 8,099 - 58,176HEMATOLOGY Most recent to oldest [Reference Range]: 1 2 WBC [3.7-10.4 K/CMM] 6.4 K/CMM (10/01/2012 07:20:00) RBC [4.20-5.40 M/CMM] 2.94 M/CMM *LOW* (10/01/2012 07:20:00) Hgb [12.0-16.0 g/dL] 9.7 g/dL *LOW* (10/01/2012 07:20:00) Hct [36.0-48.0 %] 27.7 % *LOW* (10/01/2012 07:20:00) MCV [81.0-99.0 fL] 93.9 fL (10/01/2012 07:20:00) MCH [27.0-31.0 pg] 33.1 pg *HI* (10/01/2012 07:20:00) MCHC [32.0-36.0 g/dL] 35.2 g/dL (10/01/2012 07:20:00) RDW [11.5-14.5 %] 13.5 % (10/01/2012 07:20:00) Platelet [133-450 K/CMM] 150 K/CMM (10/01/2012 07:20:00) MPV [7.4-10.4 fL] 9.3 fL (10/01/2012 07:20:00) Segs [45.0-75.0 %] 61.6 % (10/01/2012 07:20:00) Lymphocytes [20.0-40.0 %] 26.3 % (10/01/2012 07:20:00) Monocytes [2.0-12.0 %] 6.7 % (10/01/2012 07:20:00) Eosinophils [0.0-4.0 %] 4.8 % *HI* (10/01/2012 07:20:00) Basophils [0.0-1.0 %] 0.6 % (10/01/2012 07:20:00) Segs-Bands # [1.5-8.1 K/CMM] 3.9 K/CMM (10/01/2012 07:20:00) Lymphocytes # [1.0-5.5 K/CMM] 1.7 K/CMM (10/01/2012 07:20:00) Monocytes # [0.0-0.8 K/CMM] 0.4 K/CMM (10/01/2012 07:20:00) Eosinophils # [0.0-0.5 K/CMM] 0.3 K/CMM (10/01/2012 07:20:00) PT [12.0-14.7 seconds] 12.7 seconds (10/01/2012 07:20:00) INR [0.85-1.17] 0.93 10 (10/01/2012 07:20:00) F2 Mutation PCR Negative (10/01/2012 07:20:00) F2 Mut Interp FACTOR II PT: Negative INTERPRETATION: Molecular analysis for the Factor II (Prothrombin) 64239A>A mutation was negative. Other causes of elevated prothrombin levels and hereditary forms of venous thrombosis are not ruled out. Final diagnosis requires correlation with clinical history and other pertinent laboratory findings. Where appropriate, medical consultation and genetic counseling should be offered to inform and explain the risk implications and genetic implications of these test results. CPT: 58261 ASSAY LIMITATIONS: The assay uses the FDA-cleared Marci Factor II (Prothrombin) [id number] IVD (Polymerase chain reaction/FRET detection), [employer] as well as Marci LightCycler 1.2 Instrument. A 165-bp fragment of Factor II gene(FII) containing the Factor II [id number] sequence is amplified in the assay. The assay is designed to detect the V12113N mutation only. Other causes of elevated prothrombin levels and hereditary forms of venous thrombosis are not ruled out. However, the melting curve analysis may implicate the presence of a possible rare mutation at position 91019 ( Further testing will be recommended in the report). A minimum detection level is 198 copies of Factor II per reaction. The level of agreement between the Factor II(Prothrombin) [id number] Kit and sequence analysis was 98.9%. The test result must be interpreted along with the patient's clinical history and other pertinent laboratory data. This assay has been validated by [facility]. *NA* (10/01/2012 07:20:00) F5 Leiden PCR Negative (10/01/2012 07:20:00) F5 Leiden Intrp FACTOR V LEIDEN: Negative INTERPRETATION: Molecular analysis for the Factor V Leiden, R506Q mutation was negative. Other causes of activated protein C resistance and hereditary forms of venous thrombosis are not ruled out. Final diagnosis required correlation with clinical history and other pertinent laboratory findings. Where appropriate, medical consultation and/or genetic counseling should be offered to inform and explain the risk implications and genetic implications of these test results. CPT: 27143 ASSAY LIMITATIONS: The assay uses the FDA-cleared Marci Factor V Leiden IVD(Poymerase chain reaction/FRET detection), [employer] Instrument as well as Marci LightCycler 1.2 Instrument. A 222-bp fragment of Facto r V gene (FV) containing the Factor V Leiden sequence is amplified in the assay. The assay is designed to detect the G 1691A mutation only. Other causes of activated protein C resistance and hereditary forms of venous thrombosis are to ruled out. However,the melting curve analysis may implicate the presence of possible rare mutations at position. 1689 , 1692 and 1696 (further testing will be recommende d in the report). A minimum detection level is 202 copies of Factor V Leiden per reaction. The level of agreement between the Factor V Leiden Kit and sequence analysis was 99.4%. The test result must be interpreted along with the patient's clinical history and other pertinent laboratory data.This assay has been validated by [facility]. *NA* (10/01/2012 07:20:00) AT III Func [77-140 %] 86 % (10/01/2012 07:20:00) PTT [22.9-35.8 seconds] 32.2 seconds 11 (10/01/2012 07:20:00) MTHFR DNA Mutation Analysis SEE NOTE 12 *NA* (10/01/2012 07:20:00) Protein C Func [72-147 %] 157 % *HI* (10/01/2012 07:20:00) Protein S Func [54-137 %] 78 % (10/01/2012 07:20:00) 10Interpretive Data: RECOMMENDED RANGES FOR PROTIME INR: 2.0-3.0 for most medical and surgical thromboembolic states. 2.5-3.5 for artificial heart valves and recurrent embolism. INR SHOULD BE USED ONLY FOR PATIENTS ON STABLE ANTICOAGULANT THERAPY.11Interpretive Data: Heparin Therapeutic Range: 57 - 92 [id number] Comment: RESULT: NO MUTATION DETECTED INTERPRETATION: This individual is negative (normal) for the mutations, C677T and T0992W, in the MTHFR gene. Increased risk of [...] risk for vascular disease. The C677T [NM 133521.3: c.665C>T (p.A222V)] and B6591S [c. 1286A>C (p.E429A)] mutations are detected by [...] its performance characteristics have been determined by [facility] [place]. It has not been cleared or approved by the U.S. Food and Drug Administration. The FDA has determined that such clearance or approval is not necessary. Performance characteristics refer to the analytical performance of the test. Health care providers, please contact your local [facility] genetic counselor or call [phone] ([phone]) for assistance with interpretation of these results. Test Performed at: [facility] [address] [address] Garry Fernández MD, PhDIMMUNOLOGY Most recent to oldest [Reference Range]: 1 2 RPR [Non Reactive] Non Reactive (10/01/2012 07:20:00) C3 Complement [88-201 mg/dL] 86 mg/dL *LOW* (10/01/2012 07:20:00) C4 Complement [16-47 mg/dL] 31 mg/dL (10/01/2012 07:20:00) CMV IgG [Non Reactive] Reactive *ABN* (10/01/2012 07:20:00) CMV IgM 0.1 S/CO Ratio 13 *NA* (10/01/2012 07:20:00) EBV VCA IgG [<=0.8 AI] >8.0 AI 14 *HI* (10/01/2012 07:20:00) EBV VCA IgM [<=0.8 AI] <0.2 AI 15 (10/01/2012 07:20:00) Varicella IgG [<=0.8 AI] 3.1 AI 16 *HI* (10/01/2012 07:20:00) Varicella IgM 0.81 ISR 17 *NA* (10/01/2012 07:20:00) HIV 1/2 Ab [Negative] Negative *NA* (10/01/2012 07:20:00) Cardiolipin IgA 1 IgA Phospholipid Units 18 *NA* (10/01/2012 07:20:00) Cardiolipin IgG 5 IgG Phospholipid Units 19 *NA* (10/01/2012 07:20:00) Cardiolipin IgM 5.4 IgM Phospholipid Units 20 *NA* (10/01/2012 07:20:00) HSV 1 IgG [<=0.8 AI] 4.1 AI 21 *HI* (10/01/2012 07:20:00) HSV 2 IgG [<=0.8 AI] <0.2 AI 22 (10/01/2012 07:20:00) Homocyst Tot [3.7-13.9 uMol/L] 27.4 uMol/L *HI* (10/01/2012 07:20:00) Quantiferon - TB Gold [NEGATIVE] NEGATIVE 23 *NA* (10/01/2012 07:20:00) NIL 0.04 IU/mL *NA* (10/01/2012 07:20:00) Mitogen - NIL 2.15 IU/mL *NA* (10/01/2012 07:20:00) TB - NIL 0.04 IU/mL 24 *NA* (10/01/2012 07:20:00) Hep Bs Ag [Negative] Negative *NA* (10/01/2012 07:20:00) Hep Bs Ab [<=7.4 mIU/mL] 7.7 mIU/mL 25 *HI* (10/01/2012 07:20:00) Hep B Core Ab [Negative] Negative *NA* (10/01/2012 07:20:00) Hep C Ab [Negative] Negative *NA* (10/01/2012 07:20:00) 13Interpretive Data: Reference Ranges: Non-reactive: <0.9 S/CO Ratio Indeterminate: 0.9 - 1.0 S/CO Ratio Reactive: >=1.1 S/CO [id number] Data: Antibody Index (AI) Results Interpretation ------- 0.0-0.8 Negative No detectable IgG Antibody. 0.9-1.0 Equivocal Repeat testing suggested in 10-14 days. >=1.10 Positive Indicates presence of detectable IgG Antibody.15Interpretive Data: Antibody Index (AI) Results Interpretation ------- 0.0-0.8 Negative No detectable IgM Antibody. 0.9-1.0 Equivocal Repeat testing suggested in 10-14 days. >=1.10 Positive Significant level of detectable IgM Antibody, indicative of current or recent infection.16Interpretive Data: Antibody Index (AI) Results Interpretation ------- 0.0-0.8 Negative No detectable IgG Antibody. 0.9-1.0 Equivocal Repeat testing suggested in 10-14 days. >=1.10 Positive Indicates presence of detectable IgG Antibody.17Result Comment: Reference Range: 0.00-0.90 NEGATIVE 0.91-1.09 EQUIVOCAL >=1.10 POSITIVE Results from any one IgM [...] two or more weeks. Test Performed at: [facility] [address] [address] Garry Fernández MD, [id number] Data : Reference Ranges for IgA: 0-11 APL Negative 12-20 APL Inconclusive 21-80 APL Low-Med Positive > 80 APL Strong [id number] Data: Reference Ranges for Ig-14 GPL Negative 15-20 GPL Inconclusive 21-80 GPL Low-Med Positive > 80 GPL Strong [id number] Data: Reference Ranges for IgM: 0-12.4 MPL Negative 12.5-20 MPL Inconclusive 21-80 MPL Low-Med Positive > 80 MPL Strong [id number] Data: Antibody Index (AI) Results Interpretation ------- 0.0-0.8 Negative No detectable IgG Antibody. 0.9-1.0 Equivocal Repeat testing suggested in 10-14 days. >=1.10 Positive Indicates presence of detectable IgG Antibody.22Interpretive Data: Antibody Index (AI) Results Interpretation ------- 0.0-0.8 Negative No detectable IgG Antibody. 0.9-1.0 Equivocal Repeat testing suggested in 10-14 days. >=1.10 Positive Indicates presence of detectable IgG Antibody.23Result Comment: Negative test result. M. tuberculosis complex infection unlikely.24Result Comment: The Nil tube value is used to determine if the patient has a preexisting immune response which could cause a false-positive reading on the test. In order for a test to be valid, the Nil tube [...] IU/mL. For additional information, please refer to [email or web address]/faq/QFT (This link is being provided for informational/ educational purposes only.) Test Performed at: [facility] [address] [address] TIKI DUARTE M.D.25Interpretive Data: <=7.4 mIU/ mL--------Negative for Anti-HBs. Not immune to HBV infection. 7.5-12.4 mIU/mL--Borderline for Anti-HBs and immune status should be further assessed by considering other factors such as clinical status follow-up testing, associated risk factors, and the use of additional diagnostic information. >12.4 mIU/mL-------Positive for Anti-HBs. Immune to HBV infection
--- OUTSIDE RECORDS SUMMARY | 2018-08-01 03:09 | XMS REPORT | CCD ---
:1965 Author Organization [facility] Care Team Providers Name Role Phone Jus Jhonson Referring Provider Allergies, Adverse Reactions, Alerts Substance Reaction Status NKDA Active Results CHEMISTRY Most recent to oldest [Reference Range]: 1 POC Potassium [3.5-5.1 mEq/L] 4.8 mEq/L (12/27/2012 12:29:00)
--- OUTSIDE RECORDS SUMMARY | 2018-08-01 03:10 | XMS REPORT | CCD ---
:1965 Author Organization [facility] Care Team Providers Name Role Phone Toussaint Shanae Maria Consulting Provider Allergies, Adverse Reactions, Alerts Substance [...] Medication Instructions Start Date End Date Status methylPREDNISolone 40 mg, 1 mL, Route: 06/08/2013 06/08/2013 Completed IVP, Drug form: INJ, ONCE, Dosing Weight 72.006, kg, Priority: NOW, Start date: 06/08/13 11:05:00, Stop date: 06/08/13 11:05:00(Same as:Solu-Medrol, A-Methapred) Benadryl 50 mg, 1 cap, Route: 06/08/2013 06/08/2013 Completed PO, Drug form: CAP, ONCE, Dosing Weight 72.006, kg, Start date: 06/08/13 11:53:00, Stop date: 06/08/13 11:53:00(Same as: Benadryl) Lyrica 50 mg, 1 cap, Route: 06/03/2013 06/11/2013 Discontinued PO, Drug form: CAP, After Dinner, Dosing Weight 72.006, kg, Start date: 06/03/13 17:00:00, Duration: 30 day, Stop date: 07/02/13 17:00:00Same as Lyrica ciprofloxacin 500 mg, 1 tab, Route: 06/05/2013 06/11/2013 Discontinued PO, Drug form: TAB, [id number], Dosing Weight 72.006, kg, Start date: 06/05/13 12:00:00, Duration: 30 day, Stop date: 07/05/13 0:00:00May interfere w/enteral feedings - Take 1 hr before or 2 hrs after antacids, dairy pdt & minerals. On empty stomach. Tylenol 650 mg, 2 tab, Route: 06/08/2013 06/08/2013 Completed PO, Drug form: TAB, ONCE, Dosing Weight 72.006, kg, Start date: 06/08/13 11:53:00, Stop date: 06/08/13 11:53:00Do not exceed 4 gm/day. (Same as: Tylenol) acetaminophen 650 mg, 2 tab, Route: 06/07/2013 06/07/2013 Deleted PO, Drug form: TAB, ONCE, Dosing Weight 72.006, kg, Start date: 06/07/13 7:48:00, Stop date: 06/07/13 7:48:00Do not exceed 4 gm/day. (Same as: Tylenol) diphenhydrAMINE 50 mg, 1 cap, Route: 06/07/2013 06/07/2013 Deleted PO, Drug form: CAP, ONCE, Dosing Weight 72.006, kg, Start date: 06/07/13 7:48:00, Stop date: 06/07/13 7:48:00(Same as: Benadryl) anti-thymocyte globulin 50 mg, Route: IVPB, 06/07/2013 06/07/2013 Deleted (rabbit) + Sodium Chloride ONCE, Dosing Weight 0.9% IV 100 mL 72.006, kg, Start date: 06/07/13 7:48:00, Stop date: 06/07/13 7:48:00LOT#: EXP: Final CONC must NOT exceed 0.5mg/ml; Send 0.22 micron filter. *THYMOGLOBULIN* Use 0.22 micron filter; Infuse over 6hr; Call 2hr ahead (Same as: Thymoglobulin (rabbit))"blood product derivative" methylPREDNISolone SODium 40 mg, 1 mL, Route: 06/07/2013 06/07/2013 Deleted SUCCinate IVP, Drug form: INJ, ONCE, Dosing Weight 72.006, kg, Start date: 06/07/13 7:48:00, Stop date: 06/07/13 7:48:00(Same as:Solu-Medrol, A-Methapred) Coreg 12.5 mg, 1 tab, Route: 06/03/2013 06/11/2013 Discontinued PO, Drug form: TAB, Q12H, Dosing Weight 72.006, kg, Start date: 06/03/13 21:00:00, Duration: 30 day, Stop date: 07/03/13 9:00:00Give with food. (Same As: Coreg) Nifediac CC 60 mg, 1 tab, Route: 06/04/2013 06/05/2013 Discontinued PO, Drug form: ERTAB, Daily, Dosing Weight 72.006, kg, Start date: 06/04/13 9:00:00, Duration: 30 day, Stop date: 07/03/13 9:00:00(Same as: Adalat CC, Procardia XL) Give on empty stomach. Take 1 hour before or 2 hours after meal; "Avoid grapefruit and grapefruit juice". Do not crush IVIG 10 % solution 30 gm, 300 mL, Route: 06/08/2013 06/08/2013 Completed IV, Drug form: SOLN, ONCE, Dosing Weight 72.006, kg, Start date: 06/08/13 11:52:00, Stop date: 06/08/13 11:52:00Begin at 0.5 mg/kg/min (0.03 grams/kg/hr). gradually increase as tolerated . Not to exceed 4 mg/kg/min (0.24 grams/kg/hr). Lot# Mfg: "blood product derivative" Benadryl 25 mg, 0.5 mL, Route: 06/06/2013 06/06/2013 Completed IV, Drug form: INJ, ONCE, Dosing Weight 72.006, kg, Start date: 06/06/13 10:47:00, Stop date: 06/06/13 10:47:00(Same as: Benadryl) magnesium oxide 400 mg, 1 tab, Route: 06/08/2013 06/09/2013 Discontinued PO, Drug form: TAB, Daily, Dosing Weight 72.006, kg, Start date: 06/08/13 9:00:00, Duration: 30 day, Stop date: 07/07/13 9:00:00(Same as: Mag-Ox 400)Magnesium oxide [id number] elemental magnesiumDose=____mg magnesium oxide (___mg elemental magnesium) nystatin 100,000 units/mL 500,000 unit, 5 mL, 06/03/2013 06/11/2013 Discontinued oral suspension Route: S&SPIT, Drug form: SUSP, TID, Dosing Weight 72.006, kg, Start date: 06/03/13 17:00:00, Duration: 30 day, Stop date: 07/03/13 13:00:00(Same as:Mycostatin) Shake well. acetaminophen 650 mg, 20.3 mL, Route: 06/06/2013 06/06/2013 Completed PO, Drug form: LIQ, ONCE, Dosing Weight 72.006, kg, Start date: 06/06/13 10:46:00, Stop date: 06/06/13 10:46:00Max [id number]=1597km/da y (4 gm/day). (Same as: Tylenol) MiraLax 17 gm, 1 pkt, Route: 06/07/2013 06/11/2013 Discontinued PO, Drug form: PWDR, Daily, Dosing Weight 72.006, kg, Start date: 06/07/13 9:00:00, Duration: 30 day, Stop date: 07/06/13 9:00:00Dissolve in 8 oz of water or juice.(Same as: Miralax) sodium glycerophosphate + 30 mmol, 30 mL, Route: 06/07/2013 06/07/2013 Deleted Sodium Chloride 0.9% IV 250 IV, Drug form: INJ, mL ONCE, Dosing Weight 72.006, kg, Start date: 06/07/13 7:44:00, Stop date: 06/07/13 7:44:00Same as: Glycophos Non-Formulary hydrALAZINE 20 mg, 1 mL, Route: IV, 06/05/2013 06/05/2013 Completed Drug form: INJ, ONCE, Dosing Weight 72.006, kg, Start date: 06/05/13 3:48:00, Stop date: 06/05/13 3:48:00(Same as: Apresoline)Push over 5 minutes NovoLog FlexPen 10 unit, 0.1 mL, Route: 06/06/2013 06/11/2013 Discontinued SUB-Q, Drug form: SOLN, Before Dinner, Dosing Weight 72.006, kg, Start date: 06/06/13 16:30:00, Stop date: 07/05/13 16:30:00Roll in palms of hands gently; Do not shake vigorously. (Same as: NovoLog)"single patient use only" Stable for 28 days at room temperature.Expires in days from Date anti-thymocyte globulin 50 mg, Route: IVPB, 06/08/2013 06/08/2013 Completed (rabbit) + Sodium Chloride ONCE, Dosing Weight 0.9% IV 100 mL 72.006, kg, Start date: 06/08/13 10:09:00, Stop date: 06/08/13 10:09:00LOT#: EXP: Final CONC must NOT exceed 0.5mg/ml; Send 0.22 micron filter. *THYMOGLOBULIN* Use 0.22 micron filter; Infuse over 6hr; Call 2hr ahead (Same as: Thymoglobulin (rabbit))"blood product derivative" Privigen 35 mg, Route: IV, ONCE, 06/06/2013 06/06/2013 Discontinued Dosing Weight 72.006, kg, Start date: 06/06/13 10:45:00, Stop date: 06/06/13 10:45:00 CellCept 1,000 mg, 2 tab, Route: PO, Drug form: TAB, [id number], Dosing Weight 72.006, kg, Start date: 06/04/13 20:00:00, Stop date: 07/04/13 8:00:00, 1 hour before or 2 hours after meals 06/04/2013 06/11/2013 Discontinued 1 hour before or 2 hours after mealsSEPARATE ANTACIDS from Cellcept by 2 hrs. (Same As: CellCept) sodium glycerophosphate + 30 mmol, 30 mL, Route: 06/11/2013 06/11/2013 Completed Sodium Chloride 0.9% IV 250 IV, Drug form: INJ, mL ONCE, Dosing Weight 72.006, kg, Start date: 06/11/13 12:09:00, Stop date: 06/11/13 12:09:00Same as: Glycophos Non-Formulary hydrALAZINE 10 mg, 0.5 mL, Route: 06/05/2013 06/05/2013 Completed IV, Drug form: INJ, ONCE, Dosing Weight 72.006, kg, Start date: 06/05/13 1:49:00, Stop date: 06/05/13 1:49:00(Same as: Apresoline)Push over 5 minutes anti-thymocyte globulin 100 mg, Route: IVPB, 06/05/2013 06/05/2013 Completed (rabbit) + Sodium Chloride ONCE, Dosing Weight 0.9% IV 200 mL 72.006, kg, Start date: 06/05/13 17:00:00, Stop date: 06/05/13 17:00:00LOT#: EXP: Final CONC must NOT exceed 0.5mg/ml; Send 0.22 micron filter. *THYMOGLOBULIN* Use 0.22 micron filter; Infuse over 6hr; Call 2hr ahead (Same as: Thymoglobulin (rabbit))"blood product derivative" methylPREDNISolone SODium 40 mg, 1 mL, Route: 06/05/2013 06/05/2013 Completed SUCCinate IVP, Drug form: INJ, ONCE, Dosing Weight 72.006, kg, Start date: 06/05/13 16:30:00, Stop date: 06/05/13 16:30:00(Same as:Solu-Medrol, A-Methapred) acetaminophen 650 mg, 2 tab, Route: 06/05/2013 06/05/2013 Completed PO, Drug form: TAB, ONCE, Dosing Weight 72.006, kg, Start date: 06/05/13 16:30:00, Stop date: 06/05/13 16:30:00Do not exceed 4 gm/day. (Same as: Tylenol) diphenhydrAMINE 50 mg, 2 cap, Route: 06/05/2013 06/05/2013 Completed PO, Drug form: CAP, ONCE, Dosing Weight 72.006, kg, Start date: 06/05/13 16:30:00, Stop date: 06/05/13 16:30:00(Same as: Benadryl) magnesium oxide 800 mg, 2 tab, Route: 06/09/2013 06/11/2013 Discontinued PO, Drug form: TAB, BID, Dosing Weight 72.006, kg, Start date: 06/09/13 9:00:00, Duration: 30 day, Stop date: 07/08/13 17:00:00(Same as: Mag-Ox 400)Magnesium oxide [id number] elemental magnesiumDose=____mg magnesium oxide (___mg elemental magnesium) sodium glycerophosphate + 30 mmol, 30 mL, Route: 06/09/2013 06/09/2013 Completed Sodium Chloride 0.9% IV 220 IVPB, ONCE, Dosing mL Weight 72.006, kg, Start date: 06/09/13 12:00:00, Stop date: 06/09/13 12:00:00 senna 8.6 mg oral tablet 8.6 mg=1 tab, PO, 06/11/2013 Ordered Bedtime, Constipation, # 50 tab, 0 Refill(s) sodium bicarbonate 650 mg 1,300 mg=2 tab, PO, 06/11/2013 Ordered oral tablet TID, # 100 tab, 0 Refill(s) magnesium oxide 400 mg oral 800 mg=2 tab, PO, BID, 06/11/2013 Ordered tablet # 120 tab, 0 Refill(s) tacrolimus 1 mg oral 2 mg=2 cap, PO, [id number], Pediatric Dosing, # 60 cap, 0 Refill(s) 06/11/2013 Ordered capsule Pediatric Dosing Privigen 30 gm, 300 mL, Route: 06/06/2013 06/06/2013 Completed IV, Drug form: SOLN, ONCE, Dosing Weight 72.006, kg, Start date: 06/06/13 10:48:00, Stop date: 06/06/13 10:48:00 sodium glycerophosphate + 30 mmol, 30 mL, Route: 06/10/2013 06/10/2013 Completed Sodium Chloride 0.9% IV 220 IV, Drug form: INJ, mL ONCE, Dosing Weight 72.006, kg, Start date: 06/10/13 6:50:00, Stop date: 06/10/13 6:50:00Same as: Glycophos Non-Formulary Valcyte 450 mg, 1 tab, Route: 06/04/2013 06/11/2013 Discontinued PO, Drug form: TAB, Daily, Dosing Weight 72.006, kg, Start date: 06/04/13 9:00:00, Duration: 30 day, Stop date: 07/03/13 9:00:00(Same as: Valcyte)"Do Not Crush" insulin glargine 100 20 unit=0.2 mL, SUB-Q, 06/11/2013 Ordered units/mL subcutaneous Daily, # 10 mL, 0 solution Refill(s) insulin aspart 100 units/mL 10 unit=0.1 mL, SUB-Q, 06/11/2013 Ordered subcutaneous solution Before Dinner, # 30 mL, 0 Refill(s) insulin aspart 100 units/mL 8 unit=0.08 mL, SUB-Q, 06/11/2013 Ordered subcutaneous solution Before Lunch, # 30 mL, 0 Refill(s) insulin aspart 100 units/mL 4 unit=0.04 mL, SUB-Q, 06/11/2013 Ordered subcutaneous solution Before Breakfast, # 30 mL, 0 Refill(s) Epogen 10,000 unit, 1 mL, 06/09/2013 06/11/2013 Discontinued Route: SUB-Q, Drug form: INJ, QMon, Dosing Weight 72.006, kg, For Oncology Patients, Start date: 06/09/13 9:00:00, Duration: 30 day, Stop date: 07/07/13 9:00:00(Same as: Procrit) epoetin jyotsna 10,000 unit/1 ml VL insulin aspart 6 unit, Route: SUB-Q, 06/05/2013 06/05/2013 Completed ONCE, Dosing Weight 72.006, kg, Start date: 06/05/13 4:06:00, Stop date: 06/05/13 4:06:00 Privigen 35 gm, 350 mL, Route: 06/03/2013 06/03/2013 Deleted IV, Drug form: SOLN, ONCE, Dosing Weight 72.006, kg, Start date: 06/03/13 17:32:00, Stop date: 06/03/13 17:32:00Begin at 0.5 mg/kg/min (0.03 grams/kg/hr). gradually increase as tolerated . Not to exceed 4 mg/kg/min (0.24 grams/kg/hr). Lot# Mfg: "blood product derivative" acetaminophen 650 mg, Route: PO, Drug 06/04/2013 06/04/2013 Discontinued form: TAB, ONCE, Dosing Weight 72.006, kg, Start date: 06/04/13 11:39:00, Stop date: 06/04/13 11:39:00 sodium glycerophosphate + 30 mmol, 30 mL, Route: 06/08/2013 06/08/2013 Completed Sodium Chloride 0.9% IV 250 IV, Drug form: INJ, mL ONCE, Dosing Weight 72.006, kg, Start date: 06/08/13 9:44:00, Stop date: 06/08/13 9:44:00Same as: Glycophos Non-Formulary Tylenol 650 mg, 2 tab, Route: 06/10/2013 06/10/2013 Completed PO, Drug form: TAB, ONCE, Dosing Weight 72.006, kg, PRN Fever, Start date: 06/10/13 6:48:00, Stop date: 07/10/13 6:47:00Do not exceed 4 gm/day. (Same as: Tylenol) Benadryl 50 mg, 1 cap, Route: 06/10/2013 06/10/2013 Completed PO, Drug form: CAP, ONCE, Dosing Weight 72.006, kg, Start date: 06/10/13 6:49:00, Stop date: 06/10/13 6:49:00(Same as: Benadryl) Thymoglobulin 100 mg, Route: IV, 06/04/2013 06/04/2013 Discontinued ONCE, Dosing Weight 72.006, kg, Specify dose date and time, Start date: 06/04/13 11:38:00, Duration: 1 doses or times, Stop date: 06/04/13 11:38:00 NIFEdipine extended release 60 mg, 1 tab, Route: 06/05/2013 06/11/2013 Discontinued PO, Drug form: ERTAB, BID, Dosing Weight 72.006, kg, Start date: 06/05/13 21:00:00, Duration: 30 day, Stop date: 07/05/13 9:00:00(Same as: Adalat CC, Procardia XL) Give on empty stomach. Take 1 hour before or 2 hours after meal; "Avoid grapefruit and grapefruit juice". Do not crush Ditropan 5 mg, 1 tab, Route: PO, 06/05/2013 06/08/2013 Discontinued Drug form: TAB, TID, Dosing Weight 72.006, kg, Priority: NOW, Start date: 06/05/13 13:48:00, Duration: 30 day, Stop date: 07/05/13 13:00:00Same as: Ditropan) diphenhydrAMINE 25 mg, 0.5 mL, Route: 06/03/2013 06/03/2013 Deleted IVP, Drug form: INJ, ONCE, Dosing Weight 72.006, kg, Start date: 06/03/13 17:31:00, Stop date: 06/03/13 17:31:00(Same as: Benadryl) anti-thymocyte globulin IV, 33.33 ml/hr, ONCE, 06/04/2013 06/04/2013 Completed (rabbit) Start date: 06/04/13 14:00:00, 200 mlLOT#: EXP: Final CONC must NOT exceed 0.5mg/ml; Send 0.22 micron filter. *THYMOGLOBULIN* Use 0.22 micron filter; Infuse over 6hr; Call 2hr ahead (Same as: Thymoglobulin (rabbit))"blood product derivative" Benadryl 25 mg, 0.5 mL, Route: 06/04/2013 06/04/2013 Completed IV, Drug form: INJ, ONCE, Start date: 06/04/13 13:30:00, Stop date: 06/04/13 13:30:00(Same as: Benadryl) albumin human 5% 300 gm, 6,000 mL, 0 06/05/2013 06/11/2013 Completed intravenous solution ml/hr, Route: IVPB, Drug Form: INJ, Dosing Weight 72.006, kg, Every Other Day, Start date: 06/05/13 13:00:00, Duration: 4 doses or times, Stop date: 06/11/13 9:00:00LOT#: Mfg: (Same as: Albuminar)"blood product derivative" Lantus 5 unit, 0.05 mL, Route: 06/06/2013 06/06/2013 Completed SUB-Q, Drug form: INJ, ONCE, Dosing Weight 72.006, kg, Start date: 06/06/13 10:52:00, Stop date: 06/06/13 10:52:00Same as Lantus Solostar PEN"single patient use only" Stable for 28 days at room temperature.Expires in days from Date Pepcid 20 mg oral tablet 20 mg, 1 tab, Route: 06/03/2013 06/11/2013 Discontinued PO, Drug form: TAB, Q12H, Dosing Weight 72.006, kg, Start date: 06/03/13 21:00:00, Duration: 30 day, Stop date: 07/03/13 9:00:00(Same as: Pepcid) anti-thymocyte globulin 50 mg, Route: IVPB, 06/06/2013 06/06/2013 Completed (rabbit) + Sodium Chloride ONCE, Dosing Weight 0.9% IV 250 mL 72.006, kg, Start date: 06/06/13 18:00:00, Stop date: 06/06/13 18:00:00LOT#: EXP: Final CONC must NOT exceed 0.5mg/ml; Send 0.22 micron filter. *THYMOGLOBULIN* Use 0.22 micron filter; Infuse over 6hr; Call 2hr ahead (Same as: Thymoglobulin (rabbit))"blood product derivative" methylPREDNISolone SODium 48 mg, 1.2 mL, Route: 06/06/2013 06/06/2013 Completed SUCCinate IVP, Drug form: INJ, ONCE, Dosing Weight 72.006, kg, Start date: 06/06/13 17:30:00, Stop date: 06/06/13 17:30:00(Same as:Solu-Medrol, A-Methapred) acetaminophen 650 mg, 2 tab, Route: 06/06/2013 06/06/2013 Completed PO, Drug form: TAB, ONCE, Dosing Weight 72.006, kg, Start date: 06/06/13 17:30:00, Stop date: 06/06/13 17:30:00Do not exceed 4 gm/day. (Same as: Tylenol) diphenhydrAMINE 50 mg, 1 cap, Route: 06/06/2013 06/06/2013 Completed PO, Drug form: CAP, ONCE, Dosing Weight 72.006, kg, Start date: 06/06/13 17:30:00, Stop date: 06/06/13 17:30:00(Same as: Benadryl) NovoLog FlexPen 4 unit, 0.04 mL, Route: 06/03/2013 06/06/2013 Discontinued SUB-Q, Drug form: SOLN, Before Dinner, Dosing Weight 72.006, kg, Start date: 06/03/13 16:30:00, Duration: 30 day, Stop date: 07/02/13 16:30:00Roll in palms of hands gently; Do not shake vigorously. (Same as: NovoLog)"single patient use only" Stable for 28 days at room temperature.Expires in days from Date NovoLog FlexPen 8 unit, 0.08 mL, Route: 06/04/2013 06/11/2013 Discontinued SUB-Q, Drug form: SOLN, Before Lunch, Dosing Weight 72.006, kg, Start date: 06/04/13 11:30:00, Stop date: 07/03/13 11:30:00Roll in palms of hands gently; Do not shake vigorously. (Same as: NovoLog)"single patient use only" Stable for 28 days at room temperature.Expires in days from Date IVIG 10 % solution 30 gm, 300 mL, Route: 06/10/2013 06/10/2013 Completed IV, Drug form: SOLN, ONCE, Dosing Weight 72.006, kg, Start date: 06/10/13 6:48:00, Stop date: 06/10/13 6:48:00Begin at 0.5 mg/kg/min (0.03 grams/kg/hr). gradually increase as tolerated . Not to exceed 4 mg/kg/min (0.24 grams/kg/hr). Lot # Mfg:_ "blo od product derivative" acetaminophen 650 mg, 2 tab, Route: 06/03/2013 06/03/2013 Deleted PO, Drug form: TAB, ONCE, Dosing Weight 72.006, kg, Start date: 06/03/13 17:30:00, Stop date: 06/03/13 17:30:00Do not exceed 4 gm/day. (Same as: Tylenol) NovoLog FlexPen 4 unit, 0.04 mL, Route: 06/04/2013 06/11/2013 Discontinued SUB-Q, Drug form: SOLN, Before Breakfast, Dosing Weight 72.006, kg, Start date: 06/04/13 7:30:00, Stop date: 07/03/13 7:30:00Roll in palms of hands gently; Do not shake vigorously. (Same as: NovoLog)"single patient use only" Stable for 28 days at room temperature.Expires in days from Date hydrocortisone 100 mg, 2 mL, Route: 06/03/2013 06/03/2013 Deleted IV, Drug form: PDR/INJ, ONCE, Dosing Weight 72.006, kg, Start date: 06/03/13 17:30:00, Stop date: 06/03/13 17:30:00(Same as: Solu-Cortef) Benadryl 25 mg, Route: IVP, 06/04/2013 06/04/2013 Discontinued ONCE, Dosing Weight 72.006, kg, Start date: 06/04/13 11:38:00, Stop date: 06/04/13 11:38:00 Saline Flush 0.9% 5 ml, Route: IVP, Drug 06/04/2013 06/11/2013 Discontinued Form: INJ, Dosing Weight 72.006, kg, Q12H, Start date: 06/04/13 21:00:00, Duration: 30 day, Stop date: 07/04/13 9:00:00(Same as: BD Posiflush) Saline Flush 0.9% 5 ml, Route: IVP, Drug 06/04/2013 06/11/2013 Discontinued Form: INJ, Dosing Weight 72.006, kg, PRN, PRN Line Flush, Start date: 06/04/13 14:01:00, Duration: 30 day, Stop date: 07/04/13 14:00:00(Same as: BD Posiflush) magnesium sulfate 2 gm, 50 mL, Route: 06/04/2013 06/04/2013 Completed IVPB, Drug form: INJ, Q2H, Dosing Weight 72.006, kg, Total dose=4 gm, Start date: 06/04/13 10:00:00, Duration: 2 doses or times, Stop date: 06/04/13 12:00:00 sodium glycerophosphate + 30 mmol, 30 mL, Route: 06/09/2013 06/09/2013 Deleted Sodium Chloride 0.9% IV 220 IVPB, ONCE, Dosing mL Weight 72.006, kg, Start date: 06/09/13 11:14:00, Stop date: 06/09/13 11:14:00 Tylenol 650 mg, 2 tab, Route: 06/04/2013 06/04/2013 Completed PO, Drug form: TAB, ONCE, Start date: 06/04/13 13:30:00, Stop date: 06/04/13 13:30:00Do not exceed 4 gm/day. (Same as: Tylenol) predniSONE 80 mg, 4 tab, Route: 06/04/2013 06/05/2013 Discontinued PO, Drug form: TAB, Daily, Dosing Weight 72.006, kg, Start date: 06/04/13 9:00:00, Duration: 30 day, Stop date: 07/03/13 9:00:00Take with food. sodium bicarbonate 1,300 mg, 2 tab, Route: 06/07/2013 06/11/2013 Discontinued PO, Drug form: TAB, TID, Dosing Weight 72.006, kg, Start date: 06/07/13 9:00:00, Duration: 30 day, Stop date: 07/06/13 17:00:00"Dissolve tablet in a glass of water prior to oral administration. STOMACH WARNING: To avoid serious injury, do not take until tablet is completely dissolved. It is very important not to take this product when overly full from food or drink." hydromorphone 0.5 mg, 0.25 mL, Route: 06/03/2013 06/04/2013 Completed IVP, Drug form: INJ, Q5Min, Dosing Weight 72.006, kg, PRN Pain Score 7-10, Start date: 06/03/13 11:43:00, Duration: 4 doses or times, Stop date: 06/04/13 0:00:00Same as: Dilaudid ondansetron 4 mg, 2 mL, Route: IVP, 06/03/2013 06/09/2013 Completed Drug form: INJ, ONCE, Dosing Weight 72.006, kg, PRN Nausea & Vomiting, Start date: 06/03/13 11:43:00(Same as: Zofran) naloxone 0.04 mg, 0.1 mL, Route: 06/03/2013 06/04/2013 Completed IVP, Drug form: INJ, Q2MIN, Dosing Weight 72.006, kg, PRN Narcotic Reversal, Start date: 06/03/13 11:43:00, Duration: 8 doses or times, Stop date: 06/04/13 0:00:00Same as Narcan flumazenil 0.2 mg, 2 mL, Route: 06/03/2013 06/04/2013 Completed IVP, Drug form: INJ, PRN, Dosing Weight 72.006, kg, PRN Benzodiazepine Reversal, Initial dose, Start date: 06/03/13 11:43:00, Duration: 1 day, Stop date: 06/04/13 11:42:00(Same as: Romazicon) CellCept 1,000 mg, 2 tab, Route: PO, Drug form: TAB, [id number], Dosing Weight 72.006, kg, Start date: 06/03/13 20:00:00, Duration: 30 day, Stop date: 8:00:00, 1 hour before or 2 hours after meals 06/03/2013 06/04/2013 Discontinued 1 hour before or 2 hours after mealsSEPARATE ANTACIDS from Cellcept by 2 hrs. (Same As: CellCept) diphenhydrAMINE 25 mg, 1 cap, Route: 06/08/2013 06/08/2013 Completed PO, Drug form: CAP, ONCE, Dosing Weight 72.006, kg, Start date: 06/08/13 16:34:00, Stop date: 06/08/13 16:34:00(Same as: Benadryl) Prograf 3 mg, 3 cap, Route: PO, Drug form: CAP, [id number], Dosing Weight 72.006 , kg, Start date: 06/03/13 21:00:00, Stop date: 07/03/13 8:00:00, Pediatric Dosing 06/03/2013 06/11/2013 Discontinued Pediatric DosingAvoid grapefruit and grapefruit juice.(Same As: Prograf) Lantus 15 unit, 0.15 mL, 06/04/2013 06/06/2013 Discontinued Route: SUB-Q, Drug form: INJ, Daily, Dosing Weight 72.006, kg, Start date: 06/04/13 9:00:00, Duration: 30 day, Stop date: 07/03/13 9:00:00Same as Lantus Solostar PEN"single patient use only" Stable for 28 days at room temperature.Expires in days from Date SoluMedrol + Sodium 250 mg, 4 mL, Route: 06/04/2013 06/04/2013 Completed Chloride 0.9% IV 50 mL IV, Drug form: INJ, ONCE, Dosing Weight 72.006, kg, Start date: 06/04/13 13:50:00, Stop date: 06/04/13 13:50:00(Same as:Solu-Medrol, A-Methapred) Dextrose 50% Syringe 25 gm, 50 mL, Route: 06/04/2013 06/05/2013 Discontinued IVP, Drug Form: INJ, Dosing Weight 72.006, kg, PRN, PRN Blood Glucose Results, Start date: 06/04/13 13:59:00, Duration: 30 day, Stop date: 07/04/13 13:58:00 glucagon 1 mg, Route: IM, Drug 06/04/2013 06/05/2013 Discontinued form: PDR/INJ, PRN, Dosing Weight 72.006, kg, PRN Blood Glucose Results, Start date: 06/04/13 13:59:00, Duration: 30 day, Stop date: 07/04/13 13:58:00 Dextrose 50% Syringe 12.5 gm, 25 mL, Route: 06/04/2013 06/05/2013 Discontinued IVP, Drug Form: INJ, Dosing Weight 72.006, kg, PRN, PRN Blood Glucose Results, Start date: 06/04/13 13:59:00, Duration: 30 day, Stop date: 07/04/13 13:58:00 insulin aspart 2 unit, 0.02 mL, Route: 06/04/2013 06/05/2013 Discontinued SUB-Q, Drug form: SOLN, TID-Before Meals, Dosing Weight 72.006, kg, PRN Blood Glucose Results, Start date: 06/04/13 13:59:00, Duration: 30 day, Stop date: 07/04/13 13:58:00Roll in palms of hands gently; Do not shake vigorously. (Same as: NovoLog)"single patient use only" Stable for 28 days at room temperature.Expires in days from Date insulin aspart 4 unit, 0.04 mL, Route: 06/04/2013 06/05/2013 Discontinued SUB-Q, Drug form: SOLN, TID-Before Meals, Dosing Weight 72.006, kg, PRN Blood Glucose Results, Start date: 06/04/13 13:59:00, Duration: 30 day, Stop date: 07/04/13 13:58:00Roll in palms of hands gently; Do not shake vigorously. (Same as: NovoLog)"single patient use only" Stable for 28 days at room temperature.Expires in days from Date insulin aspart 6 unit, 0.06 mL, Route: 06/04/2013 06/05/2013 Discontinued SUB-Q, Drug form: SOLN, TID-Before Meals, Dosing Weight 72.006, kg, PRN Blood Glucose Results, Start date: 06/04/13 13:59:00, Duration: 30 day, Stop date: 07/04/13 13:58:00Roll in palms of hands gently; Do not shake vigorously. (Same as: NovoLog)"single patient use only" Stable for 28 days at room temperature.Expires in days from Date insulin aspart 10 unit, 0.1 mL, Route: 06/04/2013 06/05/2013 Discontinued SUB-Q, Drug form: SOLN, TID-Before Meals, Dosing Weight 72.006, kg, PRN Blood Glucose Results, Start date: 06/04/13 13:59:00, Duration: 30 day, Stop date: 07/04/13 13:58:00Roll in palms of hands gently; Do not shake vigorously. (Same as: NovoLog)"single patient use only" Stable for 28 days at room temperature.Expires in days from Date insulin aspart 8 unit, 0.08 mL, Route: 06/04/2013 06/05/2013 Discontinued SUB-Q, Drug form: SOLN, TID-Before Meals, Dosing Weight 72.006, kg, PRN Blood Glucose Results, Start date: 06/04/13 13:59:00, Duration: 30 day, Stop date: 07/04/13 13:58:00Roll in palms of hands gently; Do not shake vigorously. (Same as: NovoLog)"single patient use only" Stable for 28 days at room temperature.Expires in days from Date DDAVP + Sodium Chloride 30 microgram, 2 mL, 06/03/2013 06/03/2013 Completed 0.9% IV 50 mL Route: IVPB, Drug form: INJ, ONCE, Dosing Weight 72.006, kg, Priority: STAT, Start date: 06/03/13 12:09:00, Stop date: 06/03/13 12:09:00(Same As: DDAVP) Lantus 20 unit, 0.2 mL, Route: 06/07/2013 06/11/2013 Discontinued SUB-Q, Drug form: INJ, Daily, Dosing Weight 72.006, kg, Start date: 06/07/13 9:00:00, Duration: 30 day, Stop date: 07/06/13 9:00:00Same as Lantus Solostar PEN"single patient use only" Stable for 28 days at room temperature.Expires in days from Date predniSONE 30 mg, 3 tab, Route: 06/09/2013 06/11/2013 Discontinued PO, Drug form: TAB, Daily, Dosing Weight 72.006, kg, Start date: 06/09/13 9:00:00, Duration: 30 day, Stop date: 07/08/13 9:00:00(Same as: PredniSONE) Take with food. insulin aspart 4 unit, 0.04 mL, Route: 06/03/2013 06/04/2013 Completed SUB-Q, Drug form: SOLN, ONCE, Dosing Weight 72.006, kg, Start date: 06/03/13 22:42:00, Stop date: 06/03/13 22:42:00Roll in palms of hands gently; Do not shake vigorously. 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 STOMACH WARNING: To avoid serious injury, do not take until tablet is completely dissolved. It is very important not to take this product when overly full from food or drink." acetaminophen 325 mg oral 650 mg, 2 tab, Route: 06/08/2013 06/08/2013 Completed tablet PO, Drug form: TAB, ONCE, Dosing Weight 72.006, kg, Start date: 06/08/13 16:34:00, Stop date: 06/08/13 16:34:00Do not exceed 4 gm/day. (Same as: Tylenol) sodium glycerophosphate + 30 mmol, 30 mL, Route: 06/07/2013 06/07/2013 Completed Sodium Chloride 0.9% IV 250 IV, Drug form: INJ, mL ONCE, Dosing Weight 72.006, kg, Start date: 06/07/13 10:00:00, Stop date: 06/07/13 10:00:00Same as: Glycophos Non-Formulary methylPREDNISolone SODium 40 mg, 1 mL, Route: 06/07/2013 06/07/2013 Completed SUCCinate IVP, Drug form: INJ, ONCE, Dosing Weight 72.006, kg, Start date: 06/07/13 11:30:00, Stop date: 06/07/13 11:30:00(Same as:Solu-Medrol, A-Methapred) Benadryl 50 mg, 1 cap, Route: 06/07/2013 06/07/2013 Completed PO, Drug form: CAP, ONCE, Dosing Weight 72.006, kg, Start date: 06/07/13 11:30:00, Stop date: 06/07/13 11:30:00(Same as: Benadryl) belladonna-opium 16.2 mg-30 1 supp, Route: MA, Drug 06/05/2013 06/06/2013 Discontinued mg rectal suppository Form: SUPP, Dosing Weight 72.006, kg, Q12H, PRN Spasm, Start date: 06/05/13 13:52:00, Duration: 30 day, Stop date: 07/05/13 13:51:00(Same As: B & O Supp 15A) insulin aspart 6 unit, 0.06 mL, Route: 06/05/2013 06/11/2013 Discontinued SUB-Q, Drug form: SOLN, TID-Before Meals, Dosing Weight 72.006, kg, PRN Blood Glucose Results, Start date: 06/05/13 4:09:00, Duration: 30 day, Stop date: 07/05/13 4:08:00Roll in palms of hands gently; Do not shake vigorously. (Same as: NovoLog)"single patient use only" Stable for 28 days at room temperature.Expires in days from Date insulin aspart 12 unit, 0.12 mL, 06/05/2013 06/11/2013 Discontinued Route: SUB-Q, Drug form: SOLN, TID-Before Meals, Dosing Weight 72.006, kg, PRN Blood Glucose Results, Start date: 06/05/13 4:09:00, Duration: 30 day, Stop date: 07/05/13 4:08:00Roll in palms of hands gently; Do not shake vigorously. (Same as: NovoLog)"single patient use only" Stable for 28 days at room temperature.Expires in days from Date insulin aspart 9 unit, 0.09 mL, Route: 06/05/2013 06/11/2013 Discontinued SUB-Q, Drug form: SOLN, TID-Before Meals, Dosing Weight 72.006, kg, PRN Blood Glucose Results, Start date: 06/05/13 4:09:00, Duration: 30 day, Stop date: 07/05/13 4:08:00Roll in palms of hands gently; Do not shake vigorously. (Same as: NovoLog)"single patient use only" Stable for 28 days at room temperature.Expires in days from Date insulin aspart 15 unit, 0.15 mL, 06/05/2013 06/11/2013 Discontinued Route: SUB-Q, Drug form: SOLN, TID-Before Meals, Dosing Weight 72.006, kg, PRN Blood Glucose Results, Start date: 06/05/13 4:09:00, Duration: 30 day, Stop date: 07/05/13 4:08:00Roll in palms of hands gently; Do not shake vigorously. (Same as: NovoLog)"single patient use only" Stable for 28 days at room temperature.Expires in days from Date insulin aspart 3 unit, 0.03 mL, Route: 06/05/2013 06/11/2013 Discontinued SUB-Q, Drug form: SOLN, TID-Before Meals, Dosing Weight 72.006, kg, PRN Blood Glucose Results, Start date: 06/05/13 4:09:00, Duration: 30 day, Stop date: 07/05/13 4:08:00Roll in palms of hands gently; Do not shake vigorously. (Same as: NovoLog)"single patient use only" Stable for 28 days at room temperature.Expires in days from Date Dextrose 50% Syringe 12.5 gm, 25 mL, Route: 06/05/2013 06/11/2013 Discontinued IVP, Drug Form: INJ, Dosing Weight 72.006, kg, PRN, PRN Blood Glucose Results, Start date: 06/05/13 4:09:00, Duration: 30 day, Stop date: 07/05/13 4:08:00 glucagon 1 mg, Route: IM, Drug 06/05/2013 06/11/2013 Discontinued form: PDR/INJ, PRN, Dosing Weight 72.006, kg, PRN Blood Glucose Results, Start date: 06/05/13 4:09:00, Duration: 30 day, Stop date: 07/05/13 4:08:00 Dextrose 50% Syringe 25 gm, 50 mL, Route: 06/05/2013 06/11/2013 Discontinued IVP, Drug Form: INJ, Dosing Weight 72.006, kg, PRN, PRN Blood Glucose Results, Start date: 06/05/13 4:09:00, Duration: 30 day, Stop date: 07/05/13 4:08:00 insulin aspart 1 unit, 0.01 mL, Route: 06/05/2013 06/11/2013 Discontinued SUB-Q, Drug form: SOLN, Bedtime, Dosing Weight 72.006, kg, PRN Blood Glucose Results, Start date: 06/05/13 4:09:00, Duration: 30 day, Stop date: 07/05/13 4:08:00Roll in palms of hands gently; Do not shake vigorously. (Same as: NovoLog)"single patient use only" Stable for 28 days at room temperature.Expires in days from Date insulin aspart 4 unit, 0.04 mL, Route: 06/05/2013 06/11/2013 Discontinued SUB-Q, Drug form: SOLN, Bedtime, Dosing Weight 72.006, kg, PRN Blood Glucose Results, Start date: 06/05/13 4:09:00, Duration: 30 day, Stop date: 07/05/13 4:08:00Roll in palms of hands gently; Do not shake vigorously. (Same as: NovoLog)"single patient use only" Stable for 28 days at room temperature.Expires in days from Date insulin aspart 3 unit, 0.03 mL, Route: 06/05/2013 06/11/2013 Discontinued SUB-Q, Drug form: SOLN, Bedtime, Dosing Weight 72.006, kg, PRN Blood Glucose Results, Start date: 06/05/13 4:09:00, Duration: 30 day, Stop date: 07/05/13 4:08:00Roll in palms of hands gently; Do not shake vigorously. (Same as: NovoLog)"single patient use only" Stable for 28 days at room temperature.Expires in days from Date insulin aspart 2 unit, 0.02 mL, Route: 06/05/2013 06/11/2013 Discontinued SUB-Q, Drug form: SOLN, Bedtime, Dosing Weight 72.006, kg, PRN Blood Glucose Results, Start date: 06/05/13 4:09:00, Duration: 30 day, Stop date: 07/05/13 4:08:00Roll in palms of hands gently; Do not shake vigorously. (Same as: NovoLog)"single patient use only" Stable for 28 days at room temperature.Expires in days from Date Bactrim 1 tab, Route: PO, Drug 06/04/2013 06/11/2013 Discontinued Form: TAB, Dosing Weight 72.006, kg, Daily, Start date: 06/04/13 9:00:00, Duration: 30 day, Stop date: 07/03/13 9:00:00On empty stomach with a glass of water. 1 hr before meals (Same As: Bactrim, Septra) [place] 10/325 oral tablet 1 tab, Route: PO, Drug 06/03/2013 06/11/2013 Discontinued Form: TAB, Dosing Weight 72.006, kg, Q6H, PRN Pain, Start date: 06/03/13 14:26:00, Duration: 30 day, Stop date: 07/03/13 14:25:00Do not exceed 4gm/day of acetaminophen. (Same as: [place] 325/10) anti-thymocyte globulin 50 mg, Route: IVPB, 06/07/2013 06/07/2013 Completed (rabbit) + Sodium Chloride ONCE, Dosing Weight 0.9% IV 100 mL 72.006, kg, Start date: 06/07/13 12:00:00, Stop date: 06/07/13 12:00:00LOT#: EXP: Final CONC must NOT exceed 0.5mg/ml; Send 0.22 micron filter. *THYMOGLOBULIN* Use 0.22 micron filter; Infuse over 6hr; Call 2hr ahead (Same as: Thymoglobulin (rabbit))"blood product derivative" Epogen 15,000 unit, 0.75 mL, 06/07/2013 06/07/2013 Completed Route: IV, Drug form: INJ, ONCE, Dosing Weight 72.006, kg, For Oncology Patients, Start date: 06/07/13 10:41:00, Stop date: 06/07/13 10:41:00(Same as: Procrit) Procrit 20,000 unit/ml VL. For non-dialysis use in adult only. To be used in dialysis for children; Contains different preservative. Privigen 35 gm, 350 mL, Route: 06/03/2013 06/03/2013 Completed IV, Drug form: SOLN, ONCE, Dosing Weight 72.006, kg, Start date: 06/03/13 18:30:00, Stop date: 06/03/13 18:30:00Begin at 0.5 mg/kg/min (0.03 grams/kg/hr). gradually increase as tolerated . Not to exceed 4 mg/kg/min (0.24 grams/kg/hr). Lot# Mfg: "blood product derivative" Tylenol 650 mg, 2 tab, Route: 06/07/2013 06/07/2013 Completed PO, Drug form: TAB, ONCE, Dosing Weight 72.006, kg, Start date: 06/07/13 11:30:00, Stop date: 06/07/13 11:30:00Do not exceed 4 gm/day. (Same as: Tylenol) SoluCortef 100 mg, 2 mL, Route: 06/03/2013 06/03/2013 Completed IV, Drug form: PDR/INJ, ONCE, Dosing Weight 72.006, kg, Start date: 06/03/13 18:00:00, Stop date: 06/03/13 18:00:00(Same as: Solu-Cortef) Benadryl 25 mg, 0.5 mL, Route: 06/03/2013 06/03/2013 Completed IVP, Drug form: INJ, ONCE, Dosing Weight 72.006, kg, Start date: 06/03/13 18:00:00, Stop date: 06/03/13 18:00:00(Same as: Benadryl) Tylenol 650 mg, 2 tab, Route: 06/03/2013 06/03/2013 Completed PO, Drug form: TAB, ONCE, Dosing Weight 72.006, kg, Start date: 06/03/13 18:00:00, Stop date: 06/03/13 18:00:00Do not exceed 4 gm/day. (Same as: Tylenol) Ancef 2 gm, Route: IVPB, 06/03/2013 06/03/2013 Completed ONCE, Dosing Weight 72.006, kg, Start date: 06/03/13 10:48:00, Duration: 1 doses or times, Stop date: 06/03/13 10:48:00 senna 8.6 mg oral tablet 8.6 mg, 1 tab, Route: 06/03/2013 06/11/2013 Discontinued PO, Drug Form: TAB, Dosing Weight 72.006, kg, Bedtime, PRN Constipation, Start date: 06/03/13 14:26:00, Duration: 30 day, Stop date: 07/03/13 14:25:00(Same as: Senokot) docusate sodium 100 mg oral 100 mg, 1 cap, Route: 06/03/2013 06/11/2013 Discontinued capsule PO, Drug form: CAP, Daily, Dosing Weight 72.006, kg, PRN Constipation, Start date: 06/03/13 14:26:00, Duration: 30 day, Stop date: 07/03/13 14:25:00(Same as: Colace) (Do Not Crush) cholecalciferol 2000 intl 2,000 IntlUnit, 1 cap, 06/04/2013 06/11/2013 Discontinued units oral tablet Route: PO, Drug form: CAP, Daily, Dosing Weight 72.006, kg, Start date: 06/04/13 9:00:00, Duration: 30 day, Stop date: 07/03/13 9:00:00Same as: Vitamin D3 hydrALAZINE 20 mg, 1 mL, Route: 06/05/2013 06/11/2013 Discontinued IVP, Drug form: INJ, Q4H, Dosing Weight 72.006, kg, PRN Hypertension, Start date: 06/05/13 5:45:00, Duration: 30 day, Stop date: 07/05/13 5:44:00(Same as: Apresoline)Push over 5 minutes Vital Signs Most recent to oldest 1 2 3 [Reference Range]: Height 162.56 cm (06/03/2013 09:25:00) Current Weight 71.5 kg 73.006 kg 74.091 kg (06/10/2013 04:57:00) (06/09/2013 04:11:00) (06/08/2013 05:15:00) Temperature Oral 97.9 DegF 97.9 DegF 98.1 DegF [96.4-99.1 DegF] (06/11/2013 20:17:00) (06/11/2013 16:06:00) (06/11/2013 13: 00:00) Systolic Blood Pressure 133 mmHg 142 mmHg 128 mmHg [90-140 mmHg] (06/11/2013 20:17:00) *HI* (06/11/2013 13:00:00) (06/11/2013 16:06:00) Diastolic Blood Pressure 75 mmHg 82 mmHg 66 mmHg [60-90 mmHg] (06/11/2013 20:17:00) (06/11/2013 16:06:00) (06/11/2013 13:00: 00) Respiratory Rate [14-20 18 BRMIN 18 BRMIN 12 BRMIN BRMIN] (06/11/2013 20:17:00) (06/11/2013 16:06:00) *LOW* (06/11/2013 13:00:00) Peripheral Pulse Rate 64 bpm 65 bpm 74 bpm [60-100 bpm] (06/11/2013 20:17:00) (06/11/2013 16:06:00) (06/11/2013 13:00: 00) Weight 72.006 kg (06/03/2013 09:25:00) Results BACTERIAL - SEROLOGY Most recent to oldest [Reference Range]: 1 2 3 MRSA by PCR Negative 1 (06/04/2013 20:41:47) 1Interpretive Data: Interpretive Data: The [employer] LightCycler MRSA assay is a qualitative test for thedirect detection of nasal colonization with methicillin- resistant Staphylococcus aureus (MRSA) to aid in the prevention and control of MRSA infections in healthcare settings. A positive result does notindicate an infection or require treatment. A negative result does not exclude colonization or infection. The polymerase chain reaction (PCR) assay detects a proprietary sequence indicative of the integration of the SCCmec cassette into the Staphylococcus aureus chromosome, indicating the presence of MRSA DNA. The assay utilizes FDA cleared IVD reagents. Performance characteristics have been verified by the [facility] within the [facility]. The [facility] is authorized under the Clinical Laboratory Improvement Amendment of 1988 (CLIA-88) to performhigh complexity testing.BEDSIDE GLUCOSE TESTING Most recent to oldest 1 2 3 [Reference Range]: Glucose POC [70-99 232 mg/dL 2 187 mg/dL 3 117 mg/dL 4 mg/dL] *HI* *HI* *HI* (06/11/2013 21:32:00) (06/11/2013 15:19:00) (06/11/2013 11:58:00) Gluc POC Comment 1 Notified RN/MD Notified RN/MD Notified RN/MD *NA* *NA* *NA* (06/11/2013 11:58:00) (06/10/2013 23:28:00) (06/09/2013 17:33:00) 2Interpretive Data: Upper Reportable Limit: 200 mg/dL.3Interpretive Data: Upper Reportable Limit: 200 mg/dL.4Interpretive Data: Upper Reportable Limit: 200 mg/dL.URINALYSIS Most recent to oldest [Reference 1 2 3 Range]: UA Turbidity [Clear] Slight Clear *ABN* (06/03/2013 10:13:20) (06/05/2013 04:10:00) UA Color [Yellow] Red Light Yellow *ABN* *NA* (06/05/2013 04:10:00) (06/03/2013 10:13:20) UA pH [5.0-8.0] 6.0 7.0 (06/05/2013 04:10:00) (06/03/2013 10:13:20) UA Spec Grav [<=1.030] 1.014 1.008 (06/05/2013 04:10:00) (06/03/2013 10:13:20) UA Glucose [Negative mg/dL] >=1000 mg/dL 150 mg/dL *ABN* *ABN* (06/05/2013 04:10:00) (06/03/2013 10:13:20) UA Blood [Negative] Large Negative *ABN* (06/03/2013 10:13:20) (06/05/2013 04:10:00) UA Ketones [Negative mg/dL] Negative mg/dL Negative mg/dL *NA* *NA* (06/05/2013 04:10:00) (06/03/2013 10:13:20) UA Protein [Negative mg/dL] 70 mg/dL Negative mg/dL *ABN* (06/03/2013 10:13:20) (06/05/2013 04:10:00) UA Urobilinogen [0.1-1.0 mg/dL] <=1.0 mg/dL <=1.0 mg/dL *NA* *NA* (06/05/2013 04:10:00) (06/03/2013 10:13:20) UA Bili [Negative] Negative Negative *NA* *NA* (06/05/2013 04:10:00) (06/03/2013 10:13:20) UA Leuk Est [Negative] Small Negative *ABN* (06/03/2013 10:13:20) (06/05/2013 04:10:00) UA Nitrite [Negative] Negative Negative (06/05/2013 04:10:00) (06/03/2013 10:13:20) UA WBC [0-5 /HPF] 17 /HPF 1 /HPF *HI* (06/03/2013 10:13:20) (06/05/2013 04:10:00) UA RBC [0-2 /HPF] >182 /HPF 1 /HPF *HI* (06/03/2013 10:13:20) (06/05/2013 04:10:00) UA Bacteria [None Seen /HPF] Occasional /HPF *NA* (06/05/2013 04:10:00) UA Sq Epi None Seen *NA* (06/05/2013 04:10:00) UA Sq Epi [Few /LPF] Occasional /LPF *NA* (06/03/2013 10:13:20) BLOOD BANK RESULTS Most recent to oldest [Reference 1 2 3 Range]: ABO/Rh O POS *Unknown* (06/11/2013 11:50:00) Antibody Scrn Negative (06/11/2013 11:50:00) RBC product Product available Product available (06/11/2013 15:43:53) (06/11/2013 12:09:00) CHEMISTRY Most recent to oldest 1 2 3 [Reference Range]: Sodium Lvl [135-145 mEq/L] 142 mEq/L 145 mEq/L 145 mEq/L (06/11/2013 05:34:00) (06/10/2013 05:10:00) (06/09/2013 05:57:00) Potassium Lvl [3.5-5.1 4.2 mEq/L 4.1 mEq/L 4.0 mEq/L mEq/L] (06/11/2013 05:34:00) (06/10/2013 05:10:00) (06/09/2013 05:57:00) Chloride Lvl [95-109 mEq/L] 112 mEq/L 116 mEq/L 115 mEq/L *HI* *HI* *HI* (06/11/2013 05:34:00) (06/10/2013 05:10:00) (06/09/2013 05:57:00) CO2 [24-32 mEq/L] 21 mEq/L 19 mEq/L 20 mEq/L *LOW* *LOW* *LOW* (06/11/2013 05:34:00) (06/10/2013 05:10:00) (06/09/2013 05:57:00) AGAP [10.0-20.0 mEq/L] 13.2 mEq/L 14.1 mEq/L 14.0 mEq/L (06/11/2013 05:34:00) (06/10/2013 05:10:00) (06/09/2013 05:57:00) Creatinine Lvl [0.5-1.4 0.9 mg/dL 1.2 mg/dL 1.1 mg/dL mg/dL] (06/11/2013 05:34:00) (06/10/2013 05:10:00) (06/09/2013 05:57:00) eGFR 76 mL/min/1.73m2 5 54 mL/min/1.73m2 6 60 mL/min/1.73m2 7 *NA* *NA* *NA* (06/11/2013 05:34:00) (06/10/2013 05:10:00) (06/09/2013 05:57:00) BUN [7-22 mg/dL] 20 mg/dL 20 mg/dL 21 mg/dL (06/11/2013 05:34:00) (06/10/2013 05:10:00) (06/09/2013 05:57:00) B/C Ratio [6-25] 21 (06/03/2013 09:51:33) Glucose Lvl [70-99 mg/dL] 174 mg/dL 8 133 mg/dL 9 137 mg/dL 10 *HI* *HI* *HI* (06/11/2013 05:34:00) (06/10/2013 05:10:00) (06/09/2013 05:57:00) Total Protein [6.4-8.4 6.3 g/dL g/dL] *LOW* (06/03/2013 09:51:33) Albumin Lvl [3.5-5.0 g/dL] 3.7 g/dL (06/03/2013 09:51:33) Globulin [2.0-4.0 g/dL] 2.6 g/dL (06/03/2013 09:51:33) A/G Ratio [0.7-1.6] 1.4 (06/03/2013 09:51:33) Calcium Lvl [8.5-10.5 8.7 mg/dL 8.6 mg/dL 8.4 mg/dL mg/dL] (06/11/2013 05:34:00) (06/10/2013 05:10:00) *LOW* (06/09/2013 05:57:00) Phosphorus [2.5-4.5 mg/dL] 1.5 mg/dL 11 1.9 mg/dL 1.5 mg/dL 12 *CRIT* *LOW* *CRIT* (06/11/2013 05:34:00) (06/10/2013 05:10:00) (06/09/2013 05:57:00) Magnesium Lvl [1.8-2.4 1.5 mg/dL 1.4 mg/dL 1.2 mg/dL mg/dL] *LOW* *LOW* *LOW* (06/11/2013 05:34:00) (06/10/2013 05:10:00) (06/09/2013 05:57:00) ALT [0-65 unit/L] 100 unit/L *HI* (06/03/2013 09:51:33) AST [0-37 unit/L] 35 unit/L (06/03/2013 09:51:33) Alk Phos [39-136 unit/L] 101 unit/L (06/03/2013 09:51:33) Bili Total [0.2-1.3 mg/dL] 0.3 mg/dL (06/03/2013 09:51:33) Ca Ion WB [1.05-1.25 1.13 mMol/L mMol/L] (06/05/2013 04:10:00) Ca Norm WB [1.05-1.25 1.15 mMol/L mMol/L] (06/05/2013 04:10:00) Tacrolimus Lvl [5.0-15.0 13.3 ng/mL 11.2 ng/mL 12.2 ng/mL ng/mL] (06/11/2013 05:34:00) (06/10/2013 05:10:00) (06/09/2013 05:57:24) U Creatinine 24.1 mg/dL 13 *NA* (06/03/2013 10:13:20) U Protein 44.0 mg/dL 14 *NA* (06/04/2013 03:57:21) 5Result Comment: The eGFR is calculated using [...] values reflect the clinical guidelines of the [place] [employer].9Interpretive Data: Adult reference range values reflect the clinical guidelines of the [place] [employer].10Interpretive Data: Adult reference range values reflect the clinical guidelines of the [place] [employer].11Result Comment: Critical Result(s) called to Nicky Soto_ at 06/11/2013 08:23 by [facility]. Read back OK.12Result Comment : Critical Result(s) called to Marcos Levine_ at 06/09/2013 08:57 by mjj. Read back OK.13Interpretive Data: No established reference ranges.14Interpretive Data: No established reference ranges.HEMATOLOGY Most recent to oldest 1 2 3 [Reference Range]: WBC [3.7-10.4 K/CMM] 4.3 K/CMM 5.9 K/CMM 4.0 K/CMM (06/11/2013 05:34:00) (06/10/2013 05:10:00) (06/09/2013 05:57:00) RBC [4.20-5.40 M/CMM] 2.50 M/CMM 2.59 M/CMM 2.44 M/CMM *LOW* *LOW* *LOW* (06/11/2013 05:34:00) (06/10/2013 05:10:00) (06/09/2013 05:57:00) Hgb [12.0-16.0 g/dL] 7.4 g/dL 7.8 g/dL 7.5 g/dL *LOW* *LOW* *LOW* (06/11/2013 05:34:00) (06/10/2013 05:10:00) (06/09/2013 05:57:00) Hct [36.0-48.0 %] 23.3 % 23.5 % 22.2 % *LOW* *LOW* *LOW* (06/11/2013 05:34:00) (06/10/2013 05:10:00) (06/09/2013 05:57:00) MCV [81.0-99.0 fL] 93.3 fL 90.9 fL 91.3 fL (06/11/2013 05:34:00) (06/10/2013 05:10:00) (06/09/2013 05:57:00) MCH [27.0-31.0 pg] 29.8 pg 30.3 pg 30.9 pg (06/11/2013 05:34:00) (06/10/2013 05:10:00) (06/09/2013 05:57:00) MCHC [32.0-36.0 g/dL] 31.9 g/dL 33.3 g/dL 33.9 g/dL *LOW* (06/10/2013 05:10:00) (06/09/2013 05:57:00) (06/11/2013 05:34:00) RDW [11.5-14.5 %] 16.9 % 16.0 % 15.9 % *HI* *HI* *HI* (06/11/2013 05:34:00) (06/10/2013 05:10:00) (06/09/2013 05:57:00) Platelet [133-450 K/CMM] 69 K/CMM 64 K/CMM 50 K/CMM *LOW* *LOW* *LOW* (06/11/2013 05:34:00) (06/10/2013 05:10:00) (06/09/2013 05:57:00) MPV [7.4-10.4 fL] 10.3 fL 10.2 fL 10.6 fL (06/11/2013 05:34:00) (06/10/2013 05:10:00) *HI* (06/09/2013 05:57:00) Segs [45.0-75.0 %] 87.1 % 93.6 % 91.3 % *HI* *HI* *HI* (06/11/2013 05:34:00) (06/10/2013 05:10:00) (06/09/2013 05:57:00) Lymphocytes [20.0-40.0 %] 8.0 % 3.0 % 4.1 % *LOW* *LOW* *LOW* (06/11/2013 05:34:00) (06/10/2013 05:10:00) (06/09/2013 05:57:00) Monocytes [2.0-12.0 %] 4.3 % 2.8 % 3.6 % (06/11/2013 05:34:00) (06/10/2013 05:10:00) (06/09/2013 05:57:00) Eosinophils [0.0-4.0 %] 0.4 % 0.2 % 0.9 % (06/11/2013 05:34:00) (06/10/2013 05:10:00) (06/09/2013 05:57:00) Basophils [0.0-1.0 %] 0.2 % 0.4 % 0.1 % (06/11/2013 05:34:00) (06/10/2013 05:10:00) (06/09/2013 05:57:00) Segs-Bands # [1.5-8.1 3.7 K/CMM 5.5 K/CMM 3.6 K/CMM K/CMM] (06/11/2013 05:34:00) (06/10/2013 05:10:00) (06/09/2013 05:57:00) Lymphocytes # [1.0-5.5 0.3 K/CMM 0.2 K/CMM 0.2 K/CMM K/CMM] *LOW* *LOW* *LOW* (06/11/2013 05:34:00) (06/10/2013 05:10:00) (06/09/2013 05:57:00) Monocytes # [0.0-0.8 K/CMM] 0.2 K/CMM 0.2 K/CMM 0.1 K/CMM (06/11/2013 05:34:00) (06/10/2013 05:10:00) (06/09/2013 05:57:00) Polychrom [None Seen] Slight (06/05/2013 04:10:00) Elliptocyte [None Seen] Slight *ABN* (06/05/2013 04:10:00) Plt Morph Normal (06/05/2013 04:10:00) PT [12.0-14.7 seconds] 13.7 seconds (06/03/2013 09:51:33) INR [0.85-1.17] 1.06 15 (06/03/2013 09:51:33) PTT [22.9-35.8 seconds] 29.1 seconds 16 (06/03/2013 09:51:33) 15Interpretive Data: RECOMMENDED RANGES FOR PROTIME INR: 2.0-3.0 for most medical and surgical thromboembolic states. 2.5-3.5 for artificial heart valves and recurrent embolism. INR SHOULD BE USED ONLY FOR PATIENTS ON STABLE ANTICOAGULANT THERAPY.16Interpretive Data: Heparin Therapeutic Range: 57 - 92 SecondsIMMUNOLOGY Most recent to oldest [Reference Range]: 1 2 3 IgA Lvl [68.0-378.0 mg/dL] 163.0 mg/dL (06/03/2013 09:51:33) Microbiology Reports PROCEDURE:Culture: Urine STATUS: Auth (Verified) BODY SITE: COLLECTED DATE/TIME: 06/05/2013 04:10:30 SOURCE: Urine, Clean Catch FREE TEXT SOURCE: FINAL REPORTS Final ReportNo GrowthPRELIMINARY REPORTS Preliminary ReportNo Growth; Holding Procedures Procedures Date Related Diagnosis Renal biopsy
--- OUTSIDE RECORDS SUMMARY | 2018-08-01 03:10 | XMS REPORT | CCD ---
:1965 Author Organization [facility] Care Team Providers Name Role Phone Hema Donahue Referring Provider [phone] Allergies, Adverse Reactions, Alerts Substance Reaction Status [...] Resolved Hyperlipidemia Resolved Pancreas Resolved Polycythemia Resolved Results REFERENCE LAB RESULTS Most recent to oldest [Reference Range]: 1 HLA Misc Test See Report 1 (05/20/2013 17:22:00) Test Name HLA TYPING *Unknown* (05/20/2013 17:22:00) 1Result Comment: Reference lab results scanned in [facility]. Results displayed in [id number] LAB-Outside Lab Documents (Imaged) under date/time results were scanned. Report sent for scanning on 05/27/2013 10:19.
--- OUTSIDE RECORDS SUMMARY | 2018-08-01 03:11 | XMS REPORT | CCD ---
:1965 Author Organization [facility] Care Team Providers Name Role Phone Jorge AogRobert pacheco Referring Provider Allergies, Adverse Reactions, Alerts Substance [...] Medication Instructions Start Date End Date Status nystatin 100,000 units/mL 500,000 unit=5 mL, S&SWALLOW, QID, place 2 mL in each cheek pouch, # 120 mL, 0 Refill(s) 05/30/[address] 2 mL in each cheek pouch Lantus Solostar Pen 100 =15 unit, SUB-Q, Daily, 05/29/2013 06/11/2013 Discontinued units/mL subcutaneous # 10 ml, 0 Refill(s) solution Lantus 24 unit, Daily, 0 06/19/2013 Ordered Refill(s) tacrolimus 1 mg oral 3 mg=3 cap, PO, Q12H, # 06/17/2013 Ordered capsule 180 cap, 0 Refill(s) tacrolimus 1 mg oral 4 mg=4 cap, PO, Q12H, # 05/29/2013 06/11/2013 Discontinued capsule 180 cap, 0 Refill(s) Bactrim oral tablet 1 tab, PO, Daily, # 20 05/30/2013 06/09/2013 Ordered tab, 0 Refill(s) NovoLog FlexPen 6/8/4, TID-Before 06/17/2013 Ordered Meals, 0 Refill(s) predniSONE 10 mg oral 30 mg=3 tab, PO, Daily, 05/30/2013 06/02/2013 Discontinued tablet # 7 tab, 0 Refill(s) NovoLog FlexPen 4 unit, TID-Before 05/29/2013 06/11/2013 Discontinued Meals, 0 Refill(s) mycophenolate mofetil 250 1,000 mg=4 cap, PO, 05/30/2013 Ordered mg oral capsule BID, # 120 cap, 0 Refill(s) [place] 10/325 oral tablet 1 tab, PO, Q6H, for 05/30/2013 Ordered pain, # 24 tab, 0 Refill(s) Nifediac CC 60 mg oral 60 mg=1 tab, PO, Daily, 05/29/2013 06/23/2013 Discontinued tablet, extended release # 30 tab, 0 Refill(s) K-Phos Neutral oral tablet 1 tablets, PO, BID, 0 06/16/2013 Ordered Refill(s) magnesium oxide 400 mg oral 800 mg=2 tab, PO, BID, 06/16/2013 06/26/2013 Ordered tablet # 10 tab, 0 Refill(s) carvedilol 12.5 mg oral 12.5 mg=1 tab, PO, 05/29/2013 Ordered tablet Q12H, # 60 tab, 0 Refill(s) Colace 100 mg oral capsule 100 mg=1 cap, PO, 05/30/2013 Ordered Daily, Constipation, # 20 cap, 0 Refill(s) Valcyte 450 mg oral tablet 900 mg=2 tab, Daily, 0 05/29/2013 Ordered Refill(s) cholecalciferol 2000 intl 2,000 IntlUnit=1 cap, 05/30/2013 Ordered units oral capsule PO, Daily, 0 Refill(s) Vital Signs Most recent to oldest 1 2 3 [Reference Range]: Current Weight 97.3 kg 67.1 kg 69.7 kg (06/23/2013 08:13:00) (06/19/2013 08:29:00) (06/16/2013 10:07:00) Systolic Blood Pressure 118 mmHg 126 mmHg 121 mmHg [90-140 mmHg] (06/23/2013 08:13:00) (06/19/2013 08:29:00) (06/16/2013 10:07: 00) Diastolic Blood Pressure 69 mmHg 68 mmHg 73 mmHg [60-90 mmHg] (06/23/2013 08:13:00) (06/19/2013 08:29:00) (06/16/2013 10:07: 00) Respiratory Rate [14-20 18 BRMIN 18 BRMIN 18 BRMIN BRMIN] (06/23/2013 08:13:00) (06/19/2013 08:29:00) (06/16/2013 10:07:00) Peripheral Pulse Rate 56 bpm 54 bpm 81 bpm [60-100 bpm] *LOW* *LOW* (06/16/2013 10:07:00) (06/23/2013 08:13:00) (06/19/2013 08:29:00) Results INFECTIOUS DISEASES Most recent to oldest [Reference Range]: 1 2 3 Source CMV PCR Qnt Blood *NA* (06/16/2013 08:35:00) CMV PCR Qnt [Negative] Negative (06/16/2013 08:35:00) CMV PCR Qnt (log) <2.4 log 1 *NA* (06/16/2013 08:35:00) Source BK Virus PCR Qnt Plasma *NA* (06/16/2013 08:35:00) BK Virus PCR Qnt [Negative] Negative (06/16/2013 08:35:00) BK Virus PCR Qnt (log) <2.0 log 2 *NA* (06/16/2013 08:35:00) 1Interpretive Data: Analytic Quantification Range: 250-2,500,000 copies/mL [...] Diagnostic Laboratory within [facility]. The Molecular Diagnostic Laboratory is authorized under the Clinical Laboratory Improvement Amendments of 1988 (CLIA-88) to perform high complexity testing.2Interpretive Data: Analytic Quantification Range: 100-400,000,000 copies/mL (2.0-8.6 log) BK DNA detected below 100 copies/mL [...] Diagnostic Laboratory within [facility]. The [facility] is authorized under the Clinical Laboratory Improvement Amendments of 1988 (CLIA-88) to perform high complexity testing.URINALYSIS Most recent to oldest 1 2 3 [Reference Range]: UA Turbidity [Clear] Clear Clear Clear (06/23/2013 07:20:00) (06/19/2013 08:36:00) (06/16/2013 08:35:00) UA Color [Yellow] Yellow Yellow Light Yellow *NA* *NA* *NA* (06/23/2013 07:20:00) (06/19/2013 08:36:00) (06/16/2013 08:35:00) UA pH [5.0-8.0] 6.0 6.0 6.5 (06/23/2013 07:20:00) (06/19/2013 08:36:00) (06/16/2013 08:35:00) UA Spec Grav [<=1.030] 1.011 1.011 1.009 (06/23/2013 07:20:00) (06/19/2013 08:36:00) (06/16/2013 08:35:00) UA Glucose [Negative 50 mg/dL 300 mg/dL mg/dL] *ABN* *ABN* (06/23/2013 07:20:00) (06/19/2013 08:36:00) UA Glucose 500mg/dL *NA* (06/16/2013 08:35:00) UA Blood [Negative] Negative Negative Negative (06/23/2013 07:20:00) (06/19/2013 08:36:00) (06/16/2013 08:35:00) UA Ketones [Negative Negative mg/dL Negative mg/dL Negative mg/dL mg/dL] *NA* *NA* *NA* (06/23/2013 07:20:00) (06/19/2013 08:36:00) (06/16/2013 08:35:00) UA Protein [Negative Negative mg/dL Negative mg/dL Negative mg/dL mg/dL] (06/23/2013 07:20:00) (06/19/2013 08:36:00) (06/16/2013 08:35:00) UA Urobilinogen [0.1-1.0 <=1.0 mg/dL <=1.0 mg/dL <=1.0 mg/dL mg/dL] *NA* *NA* *NA* (06/23/2013 07:20:00) (06/19/2013 08:36:00) (06/16/2013 08:35:00) UA Bili [Negative] Negative Negative Negative *NA* *NA* *NA* (06/23/2013 07:20:00) (06/19/2013 08:36:00) (06/16/2013 08:35:00) UA Leuk Est [Negative] Negative Negative Negative (06/23/2013 07:20:00) (06/19/2013 08:36:00) (06/16/2013 08:35:00) UA Nitrite [Negative] Negative Negative Negative (06/23/2013 07:20:00) (06/19/2013 08:36:00) (06/16/2013 08:35:00) UA WBC [0-5 /HPF] 1 /HPF 1 /HPF <1 /HPF (06/23/2013 07:20:00) (06/19/2013 08:36:00) (06/16/2013 08:35:00) UA RBC [0-2 /HPF] <1 /HPF 10 /HPF >182 /HPF (06/23/2013 07:20:00) *HI* *HI* (05/30/2013 08:55:00) (05/29/2013 09:20:00) UA Bacteria [None Seen Occasional /HPF /HPF] *NA* (05/29/2013 09:20:00) UA Sq Epi None Seen None Seen *NA* *NA* (06/23/2013 07:20:00) (06/19/2013 08:36:00) UA Sq Epi [Few /LPF] Occasional /LPF *NA* (06/16/2013 08:35:00) UA Hyal Cast [0-2 /LPF] 2 /LPF (05/29/2013 09:20:00) UA Amorph [place] [None Occasional /HPF Occasional /HPF Seen /HPF] *NA* *NA* (06/23/2013 07:20:00) (05/29/2013 09:20:00) UA Mucus [None Seen Few /LPF Few /LPF Few /LPF /LPF] *NA* *NA* *NA* (06/23/2013 07:20:00) (06/19/2013 08:36:00) (05/29/2013 09:20:00) UA Gran Cast 3 /LPF *NA* (05/29/2013 09:20:00) CHEMISTRY Most recent to oldest 1 2 3 [Reference Range]: Sodium Lvl [135-145 mEq/L] 140 mEq/L 141 mEq/L 141 mEq/L (06/23/2013 07:20:00) (06/19/2013 08:36:00) (06/16/2013 08:35:00) Potassium Lvl [3.5-5.1 4.1 mEq/L 4.1 mEq/L 4.5 mEq/L mEq/L] (06/23/2013 07:20:00) (06/19/2013 08:36:00) (06/16/2013 08:35:00) Chloride Lvl [95-109 mEq/L] 106 mEq/L 106 mEq/L 111 mEq/L (06/23/2013 07:20:00) (06/19/2013 08:36:00) *HI* (06/16/2013 08:35:00) CO2 [24-32 mEq/L] 26 mEq/L 24 mEq/L 21 mEq/L (06/23/2013 07:20:00) (06/19/2013 08:36:00) *LOW* (06/16/2013 08:35:00) AGAP [10.0-20.0 mEq/L] 12.1 mEq/L 15.1 mEq/L 13.5 mEq/L (06/23/2013 07:20:00) (06/19/2013 08:36:00) (06/16/2013 08:35:00) Creatinine Lvl [0.5-1.4 0.9 mg/dL 0.8 mg/dL 0.7 mg/dL mg/dL] (06/23/2013 07:20:00) (06/19/2013 08:36:00) (06/16/2013 08:35:00) eGFR 76 mL/min/1.73m2 3 88 mL/min/1.73m2 4 104 mL/min/1.73m2 5 *NA* *NA* *NA* (06/23/2013 07:20:00) (06/19/2013 08:36:00) (06/16/2013 08:35:00) BUN [7-22 mg/dL] 21 mg/dL 19 mg/dL 28 mg/dL (06/23/2013 07:20:00) (06/19/2013 08:36:00) *HI* (06/16/2013 08:35:00) B/C Ratio [6-25] 23 24 40 (06/23/2013 07:20:00) (06/19/2013 08:36:00) *HI* (06/16/2013 08:35:00) Glucose Lvl [70-99 mg/dL] 98 mg/dL 6 121 mg/dL 7 140 mg/dL 8 (06/23/2013 07:20:00) *HI* *HI* (06/19/2013 08:36:00) (06/16/2013 08:35:00) Uric Acid [2.5-7.0 mg/dL] 4.2 mg/dL 4.0 mg/dL 4.2 mg/dL (06/23/2013 07:20:00) (06/19/2013 08:36:00) (06/16/2013 08:35:00) Total Protein [6.4-8.4 6.5 g/dL 6.7 g/dL 6.6 g/dL g/dL] (06/23/2013 07:20:00) (06/19/2013 08:36:00) (06/16/2013 08:35:00) Albumin Lvl [3.5-5.0 g/dL] 4.1 g/dL 4.4 g/dL 4.5 g/dL (06/23/2013 07:20:00) (06/19/2013 08:36:00) (06/16/2013 08:35:00) Globulin [2.0-4.0 g/dL] 2.4 g/dL 2.3 g/dL 2.1 g/dL (06/23/2013 07:20:00) (06/19/2013 08:36:00) (06/16/2013 08:35:00) A/G Ratio [0.7-1.6] 1.7 1.9 2.1 *HI* *HI* *HI* (06/23/2013 07:20:00) (06/19/2013 08:36:00) (06/16/2013 08:35:00) Calcium Lvl [8.5-10.5 9.7 mg/dL 9.6 mg/dL 9.2 mg/dL mg/dL] (06/23/2013 07:20:00) (06/19/2013 08:36:00) (06/16/2013 08:35:00) Phosphorus [2.5-4.5 mg/dL] 2.1 mg/dL 1.9 mg/dL 1.5 mg/dL 9 *LOW* *LOW* *CRIT* (06/23/2013 07:20:00) (06/19/2013 08:36:00) (06/16/2013 08:35:00) Magnesium Lvl [1.8-2.4 1.1 mg/dL mg/dL] *LOW* (06/16/2013 08:35:00) ALT [0-65 unit/L] 20 unit/L 28 unit/L 25 unit/L (06/23/2013 07:20:00) (06/19/2013 08:36:00) (06/16/2013 08:35:00) AST [0-37 unit/L] <3 unit/L 9 unit/L 17 unit/L (06/23/2013 07:20:00) (06/19/2013 08:36:00) (06/16/2013 08:35:00) Alk Phos [39-136 unit/L] 142 unit/L 133 unit/L 112 unit/L *HI* (06/19/2013 08:36:00) (06/16/2013 08:35:00) (06/23/2013 07:20:00) LDH [98-192 unit/L] 209 unit/L 194 unit/L 213 unit/L *HI* *HI* *HI* (06/23/2013:20:00) (06/19/2013:36:00) (06/16/2013 08:35:00) Bili Total [0.2-1.3 mg/dL] 0.4 mg/dL 0.5 mg/dL 0.6 mg/dL (06/23/2013:20:00) (06/19/2013:36:00) (06/16/2013 08:35:00) Chol [<=199 mg/dL] 168 mg/dL 175 mg/dL 149 mg/dL (06/23/2013:20:00) (06/19/2013 08:36:00) (06/16/2013 08:35:00) Trig [<=149 mg/dL] 163 mg/dL 161 mg/dL 197 mg/dL *HI* *HI* *HI* (06/23/2013:20:00) (06/19/2013:36:00) (06/16/2013 08:35:00) Ca Ion WB [1.05-1.25 1.28 mMol/L mMol/L] *HI* (06/16/2013 08:35:00) Ca Norm WB [1.05-1.25 1.25 mMol/L mMol/L] (06/16/2013 08:35:00) Tacrolimus Lvl [5.0-15.0 7.8 ng/mL 11.3 ng/mL 16.4 ng/mL ng/mL] (06/23/2013 07:20:00) (06/19/2013 08:36:00) *HI* (06/16/2013 08:35:00) Immune Cell Func 366 10 357 11 358 12 *NA* *NA* *NA* (06/23/2013 07:20:00) (06/19/2013 08:36:00) (06/16/2013 08:35:00) U Creatinine 69.0 mg/dL 13 60.4 mg/dL 14 35.2 mg/dL 15 *NA* *NA* *NA* (06/23/2013 07:20:00) (06/19/2013 08:36:00) (06/16/2013 08:35:00) U Protein 16.7 mg/dL 16 18.4 mg/dL 17 20.1 mg/dL 18 *NA* *NA* *NA* (06/23/2013 07:20:00) (06/19/2013 08:36:00) (06/16/2013 08:35:00) U Prot/Creat 0.2 0.3 0.6 *NA* *NA* *NA* (06/23/2013 07:20:00) (06/19/2013 08:36:00) (06/16/2013 08:35:00) 3Result Comment: The eGFR is calculated using [...] eGFR should be multiplied by the estimated BMI.4Result Comment: The eGFR is calculated using the [...] eGFR should be multiplied by the estimated BMI.5Result Comment: The eGFR is calculated using the [...] eGFR should be multiplied by the estimated BMI.6Interpretive Data: Adult reference range values reflect the clinical guidelines of the [place] [employer].7Interpretive Data: Adult reference range values reflect the clinical guidelines of the [place] [employer].8Interpretive Data: Adult reference range values reflect the clinical guidelines of the [place] [employer].9Result Comment: Critical Result(s) called to merna segundo at 06/16/2013 11:13 by luis. Read back OK.10Result Comment: Reference Range < fa=083 Low immune cell response 226-524 Moderate immune cell response > lk=925 High immune cell response Test Performed at: [facility] [address] [address] TIKI DUARTE M.D.11Result Comment: Reference Range < fw=035 Low immune cell response 226-524 Moderate immune cell response > we=868 High immune cell response Test Performed at: [facility] [address] [id number] TIKI DUARTE M.D.12Result Comment: Reference Range < he=129 Low immune cell response 226-524 Moderate immune cell response > ie=829 High immune cell response Test Performed at: [facility] [address] [id number] TIKI DUARTE M.D.13Interpretive Data: No established reference ranges.14Interpretive Data: No established reference ranges.15Interpretive Data: No established reference ranges.16Interpretive Data : No established reference ranges.17Interpretive Data: No established reference ranges.18Interpretive Data: No established reference ranges.HEMATOLOGY Most recent to oldest 1 2 3 [Reference Range]: WBC [3.7-10.4 K/CMM] 5.8 K/CMM 5.4 K/CMM 6.4 K/CMM (06/23/2013 07:20:00) (06/19/2013 08:36:00) (06/16/2013 08:35:00) RBC [4.20-5.40 M/CMM] 3.96 M/CMM 3.89 M/CMM 4.06 M/CMM *LOW* *LOW* *LOW* (06/23/2013 07:20:00) (06/19/2013 08:36:00) (06/16/2013 08:35:00) Hgb [12.0-16.0 g/dL] 12.1 g/dL 11.8 g/dL 12.4 g/dL (06/23/2013 07:20:00) *LOW* (06/16/2013 08:35:00) (06/19/2013 08:36:00) Hct [36.0-48.0 %] 36.3 % 35.6 % 37.3 % (06/23/2013 07:20:00) *LOW* (06/16/2013 08:35:00) (06/19/2013 08:36:00) MCV [81.0-99.0 fL] 91.6 fL 91.6 fL 91.8 fL (06/23/2013 07:20:00) (06/19/2013 08:36:00) (06/16/2013 08:35:00) MCH [27.0-31.0 pg] 30.6 pg 30.3 pg 30.6 pg (06/23/2013 07:20:00) (06/19/2013 08:36:00) (06/16/2013 08:35:00) MCHC [32.0-36.0 g/dL] 33.4 g/dL 33.1 g/dL 33.4 g/dL (06/23/2013 07:20:00) (06/19/2013 08:36:00) (06/16/2013 08:35:00) RDW [11.5-14.5 %] 14.9 % 15.7 % 16.1 % *HI* *HI* *HI* (06/23/2013 07:20:00) (06/19/2013 08:36:00) (06/16/2013 08:35:00) Platelet [133-450 K/CMM] 191 K/CMM 165 K/CMM 131 K/CMM (06/23/2013 07:20:00) (06/19/2013 08:36:00) *LOW* (06/16/2013 08:35:00) MPV [7.4-10.4 fL] 9.6 fL 9.2 fL 9.8 fL (06/23/2013 07:20:00) (06/19/2013 08:36:00) (06/16/2013 08:35:00) Segs [45.0-75.0 %] 69.4 % 72.1 % 82.6 % (06/23/2013 07:20:00) (06/19/2013 08:36:00) *HI* (06/16/2013 08:35:00) Lymphocytes [20.0-40.0 %] 22.3 % 18.8 % 11.4 % (06/23/2013 07:20:00) *LOW* *LOW* (06/19/2013 08:36:00) (06/16/2013 08:35:00) Monocytes [2.0-12.0 %] 5.4 % 6.1 % 4.2 % (06/23/2013 07:20:00) (06/19/2013 08:36:00) (06/16/2013 08:35:00) Eosinophils [0.0-4.0 %] 2.5 % 2.6 % 1.6 % (06/23/2013 07:20:00) (06/19/2013 08:36:00) (06/16/2013 08:35:00) Basophils [0.0-1.0 %] 0.4 % 0.4 % 0.2 % (06/23/2013 07:20:00) (06/19/2013 08:36:00) (06/16/2013 08:35:00) Segs-Bands # [1.5-8.1 4.0 K/CMM 3.9 K/CMM 5.3 K/CMM K/CMM] (06/23/2013 07:20:00) (06/19/2013 08:36:00) (06/16/2013 08:35:00) Lymphocytes # [1.0-5.5 1.3 K/CMM 1.0 K/CMM 0.7 K/CMM K/CMM] (06/23/2013 07:20:00) (06/19/2013 08:36:00) *LOW* (06/16/2013 08:35:00) Monocytes # [0.0-0.8 K/CMM] 0.3 K/CMM 0.3 K/CMM 0.3 K/CMM (06/23/2013 07:20:00) (06/19/2013 08:36:00) (06/16/2013 08:35:00) Eosinophils # [0.0-0.5 0.1 K/CMM 0.1 K/CMM 0.1 K/CMM K/CMM] (06/23/2013 07:20:00) (06/19/2013 08:36:00) (06/16/2013 08:35:00) Elliptocyte [None Seen] Slight *ABN* (05/29/2013 09:20:00) Large Plt [None Seen] Slight *ABN* (05/29/2013 09:20:00) IMMUNOLOGY Most recent to oldest 1 2 3 [Reference Range]: EBV PCR Qnt <200 19 *NA* (06/16/2013 08:35:00) Source BLOOD *NA* (06/16/2013 08:35:00) [place]sworth Free Light 10.45 mg/L 9.73 mg/L Chains [3.30-19.40 (06/23/2013 07:20:00) (06/16/2013 08:35:00) mg/L] Lambda Free Light 12.84 mg/L 13.37 mg/L Chains [5.70-26.30 (06/23/2013 07:20:00) (06/16/2013 08:35:00) mg/L] Ellsworth/Lambda Free 0.81 Ratio 0.73 Ratio Light Chains Ratio (06/23/2013 07:20:00) (06/16/2013 08:35:00) [0.26-1.65 Ratio] Albumin % [55.8-66.1 69.1 REL % 72.8 REL % REL %] *HI* *HI* (06/23/2013 07:20:00) (06/16/2013 08:35:00) Alpha 1 % [2.8-4.9 4.5 REL % 4.3 REL % REL %] (06/23/2013 07:20:00) (06/16/2013 08:35:00) Alpha 2 % [7.0-11.9 9.2 REL % 8.0 REL % REL %] (06/23/2013 07:20:00) (06/16/2013 08:35:00) Beta % [7.8-13.7 REL 8.7 REL % 7.2 REL % %] (06/23/2013 07:20:00) *LOW* (06/16/2013 08:35:00) Gamma % [11.1-18.7 8.5 REL % 7.7 REL % REL %] *LOW* *LOW* (06/23/2013 07:20:00) (06/16/2013 08:35:00) Albumin (SPE) 4.49 g/dL 4.80 g/dL [3.57-5.55 g/dL] (06/23/2013 07:20:00) (06/16/2013 08:35:00) Alpha 1 Glob 0.29 g/dL 0.28 g/dL [0.18-0.41 g/dL] (06/23/2013 07:20:00) (06/16/2013 08:35:00) Alpha 2 Glob 0.60 g/dL 0.53 g/dL [0.45-1.00 g/dL] (06/23/2013 07:20:00) (06/16/2013 08:35:00) Beta Glob [0.50-1.15 0.57 g/dL 0.48 g/dL g/dL] (06/23/2013 07:20:00) *LOW* (06/16/2013 08:35:00) Gamma Glob [0.71-1.57 0.55 g/dL 0.51 g/dL g/dL] *LOW* *LOW* (06/23/2013 07:20:00) (06/16/2013 08:35:00) Tot Prot (SPE) 6.5 g/dL 6.6 g/dL [6.4-8.4 g/dL] (06/23/2013 07:20:00) (06/16/2013 08:35:00) SPE Interp Total protein is within the reference range. Capillary serum protein electrophoresis revealed a relative elevation in the albumin fraction and a significant decrease in the gamma globulin fraction with Total protein is within the reference range. Capillary serum protein electrophoresis revealed a significant decrease in the gamma globulin fraction with no other abnormalities in protein fraction distri no other abnormalities in protein fraction distribution. Per EMR the patient is status post renal transplant. 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 Clinical correlation is necessary. bution. Per EMR the patient is status post renal transplant. The identified hypogammaglobulinemia is most likely due to immunosuppressive treatment. Clinical correlation is necessary. If clinically indicated, recommend 24- hour urine immunofixation study to rule out the presence of Bence-Teran proteins. I have personally reviewed the test results and concur with the resident's interpretation. The electronic medical record has been reviewed for relevant history. CPT: 72552 GC *NA* I have personally reviewed the test results and concur with the resident's interpretation. (06/16/2013 08:35:00) CPT: 04833 GC *NA* (06/23/2013 07:20:00) Tot Prot (UPE) 19 mg/dL *NA* (06/16/2013 08:35:00) Interp (UPE) Normal urine protein electrophoresis with a trace amount of albumin. There is no evidence of a paraprotein. Please note that a random urine specimen was submitted. The electronic medical record has been reviewed for relevant history. I have personally reviewed the test results and concur with the resident's interpretation. CPT 99342-GT *NA* (06/16/2013 08:35:00) Spec Type (UPE) random 100x *NA* (06/16/2013 08:35:00) 19Result Comment: REFERENCE RANGE: <200 copies/mL This test was developed and its performance characteristics have been determined by [email or web address]. It has not been cleared or approved by the U.S. Food and Drug Administration. The FDA has determined that such clearance or approval is not necessary. Performance characteristics refer to the analytical performance of the test. Test Performed at: [facility] [address] [place] [address] Raffi Turk MD Microbiology Reports PROCEDURE:Culture: Urine STATUS: Auth (Verified) BODY SITE: COLLECTED DATE/TIME: 06/23/2013 18:55:00 SOURCE: Urine, Clean Catch FREE TEXT SOURCE: FINAL REPORTS Final Rybmhf79,000 - 50,000 CFU/mL Enterococcus Species 10,000 - 50,000 CFU/mL Skin Brandy <10,000 CFU/mL Gram Negative Rods, Lactose FermentersPRELIMINARY REPORTS * Preliminary Cwepam46,000 - 50,000 CFU/mL Enterococcus Species , Sensitivity Pending 10,000 - 50,000 CFU/mL Skin Brandy <10,000 CFU/mL Gram Negative Rods, Lactose Fermenters Preliminary ReportNo Growth; Holding Preliminary Report<10,000 CFU/mL Gram Negative Rods, Lactose Fermenters 10,000 - 50,000 CFU/mL Skin BrandySUSCEPTIBILITY REPORT Enterococcus Species Antibiotic Vitek Dilution Vitek Interpretation Ampicillin Susceptible Levofloxacin Resistant Nitrofurantoin Susceptible Tetracycline Resistant Vancomycin Susceptible PROCEDURE:Culture: Urine STATUS: Auth (Verified) BODY SITE: COLLECTED DATE/TIME: 06/19/2013 07:50:00 SOURCE: Urine, Clean Catch FREE TEXT SOURCE: FINAL REPORTS Final Wcsxtl40,000 - 50,000 CFU/mL Citrobacter freundii 10,000 - 50,000 CFU/mL Skin BrandyPRELIMINARY REPORTS Preliminary Qwtlxq77,000 - 50,000 CFU/mL Gram Negative Rods, Lactose Fermenters , Identification And Sensitivity Pending 10,000 - 50,000 CFU/mL Skin BrandySUSCEPTIBILITY REPORT Citrobacter freundii Antibiotic Vitek Dilution Vitek Interpretation Amikacin Susceptible Cefepime Susceptible Ceftriaxone Susceptible Gentamicin Susceptible Levofloxacin Resistant Meropenem Susceptible Nitrofurantoin Susceptible Tetracycline Resistant Tobramycin Susceptible Trimethoprim/Sulfamethoxazole Resistant PROCEDURE:Culture: Urine STATUS: Auth (Verified) BODY SITE: COLLECTED DATE/TIME: 06/16/2013 08:35:00 SOURCE: Urine, Clean Catch FREE TEXT SOURCE: FINAL REPORTS Final [id number] - 100,000 CFU/mL Enterococcus Species . <10,000 CFU/mL Citrobacter Freundii Complex 10,000 - 50,000 CFU/mL Skin BrandyPRELIMINARY REPORTS Preliminary ReportHolding For Better Growth Preliminary [id number] - 100,000 CFU/mL Enterococcus Species . <10,000 CFU/mL Gram Negative Rods, Lactose Fermenters Identification And Sensitivity Pending 10,000 - 50,000 CFU/mL Skin Brandy Preliminary [id number] - 100,000 CFU/ mL Enterococcus Species , Sensitivity Pending <10,000 CFU/mL Gram Negative Rods, Lactose Fermenters , Identification And Sensitivity Pending 10,000 - 50,000 CFU/mL Skin BrandySUSCEPTIBILITY REPORT Citrobacter Freundii Complex Antibiotic INTERP SELWYN Amikacin Susceptible <=16 Ampicillin Resistant >16 Ampicillin/Sulbactam Resistant >16/8 Cefepime Susceptible <=4 Ceftriaxone Resistant 32 Gentamicin Susceptible <=4 Levofloxacin Resistant >4 Meropenem Susceptible <=1 Nitrofurantoin Susceptible <=32 Piperacillin/Tazobactam Susceptible <=16 Tetracycline Resistant >8 Tobramycin Susceptible <=4 Trimethoprim/Sulfamethoxazole Resistant >2/38 Enterococcus Species Antibiotic Vitek Dilution Vitek Interpretation Ampicillin Susceptible Levofloxacin Resistant Nitrofurantoin Susceptible Tetracycline Resistant Vancomycin Susceptible PROCEDURE:Culture: Urine STATUS: Auth (Verified) BODY SITE: COLLECTED DATE/TIME: 05/30/2013 13:09:00 SOURCE: Urine, Clean Catch FREE TEXT SOURCE: FINAL REPORTS Final [id number] - 50,000 CFU/mL Skin Brandy PRELIMINARY REPORTS Preliminary ReportHolding For Better Growth Preliminary ReportSubculture In Progress PROCEDURE:Culture: Urine STATUS: Auth (Verified) BODY SITE: COLLECTED DATE/TIME: 05/29/2013 09:20:00 SOURCE: Urine, Clean Catch FREE TEXT SOURCE: FINAL REPORTS Final [id number] - 50,000 CFU/mL Skin Brandy PRELIMINARY REPORTS Preliminary ReportNo Growth; Holding
--- OUTSIDE RECORDS SUMMARY | 2018-08-01 03:11 | XMS REPORT | Summary of Care ---
:1965 Author Encounter Dates Location Diagnoses Discharge Disposition Providers 06/30/2013 - [facility] Adrogue, Robert E 07/29/[address] [place] [address] Adrogue, Robert E [address] Reason for Visit POST CLINIC // A,B,C,FK, UA,UCX Vital Signs Most recent to oldest [Reference Range]: 1 Temperature Oral [96.4-99.1 DegF] 97.0 DegF (06/30/2013 07:38:00 [facility] Systolic Blood Pressure [90-140 mmHg] 122 mmHg (06/30/2013 07:38:00 [facility] Diastolic Blood Pressure [60-90 mmHg] 72 mmHg (06/30/2013 07:38:00 [facility] Respiratory Rate [14-20 BRMIN] 16 BRMIN (06/30/2013 07:38:00 [facility] Peripheral Pulse Rate [60-100 bpm] 60 bpm (06/30/2013 07:38:00 [facility] Weight 67 kg (06/30/2013 07:38:00 [facility]) Problem List Condition Effective Dates Status Health Status Informant 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 Chronic kidney disease Resolved (CKD)(Confirmed) CMV(Confirmed) Resolved DM (diabetes mellitus) type II Resolved controlled with renal manifestation(Confirmed) ESRD (end stage renal Resolved disease)(Confirmed) History of renal Resolved transplant(Confirmed) HTN - Hypertension(Confirmed) Resolved Hyperlipidemia(Confirmed) Resolved Pancreas(Confirmed) Resolved Polycythemia(Confirmed) Resolved Allergies, Adverse Reactions, Alerts Substance Reaction Severity Status NKDA Active Medications No data available for this section Results ELECTROLYTES Most recent to oldest 1 2 3 [Reference Range]: Sodium Lvl [135-145 mEq/L] 143 mEq/L 144 mEq/L 140 mEq/L (07/14/2013 07:15:00 [facility] (07/07/2013 06:35:00 [facility]) [facility] Potassium Lvl [3.5-5.1 4.0 mEq/L 3.9 mEq/L 4.2 mEq/L mEq/L] (07/14/2013 07:15:00 [facility]) (07/07/2013 06:35:00 [facility]) ([facility] Chloride Lvl [95-109 mEq/L] 110 mEq/L 108 mEq/L 105 mEq/L *HI* (07/07/2013 06:35:00 [facility] ([facility] CO2 [24-32 mEq/L] 24 mEq/L 24 mEq/L 25 mEq/L (07/14/2013 [facility] ([facility]07[facility] (06/30/2013 07:05:00 [facility]) AGAP [10.0-20.0 mEq/L] 13.0 mEq/L 15.9 mEq/L 14.2 mEq/L (07/14/2013 07:15:00 [facility]) (07/07/2013 06:35:00 [facility]) (06/30/2013 07:05:00 [facility]) CHEM PANEL Most recent to oldest 1 2 3 [Reference Range]: Creatinine Lvl [0.5-1.4 0.7 mg/dL 0.8 mg/dL 1.1 mg/dL mg/dL] (07/14/2013 07:15:00 [facility]) (07/07/2013 06:35:00 [facility]) (06/30/2013 07:05:00 [facility]) eGFR 104 mL/min/1.73m2 1 88 mL/min/1.73m2 2 60 mL/min/1.73m2 3 *NA* *NA* *NA* (07/14/2013 07:15:00 [facility]) ([facility] (06/30/2013 07:05:00 [facility]) BUN [7-22 mg/dL] 13 mg/dL 21 mg/dL 20 mg/dL (07/14/2013 07:15:00 [facility]) (07/07/2013 06:35:00 [facility]) (06/30/2013 07:05:00 [facility]) B/C Ratio [6-25] 19 26 18 (07/14/2013 07:15:00 [facility] *HI* (06/30/2013 07:05:00 [facility]) (07/07/2013 06:35:00 [facility]) Glucose Lvl [70-99 mg/dL] 116 mg/dL 4 114 mg/dL 5 158 mg/dL 6 *HI* *HI* *HI* (07/14/2013 07:15:00 [facility]) (07/07/2013 06:35:00 [facility]) (06/30/2013 07:05:00 [facility]) Uric Acid [2.5-7.0 mg/dL] 3.7 mg/dL 4.1 mg/dL 5.0 mg/dL (07/14/2013 07:15:00 [facility]) (07/07/2013 06:35:00 [facility]) (06/30/2013 07:05:00 [facility]) Total Protein [6.4-8.4 6.5 g/dL 6.8 g/dL 6.9 g/dL g/dL] (07/14/2013 07:15:00 [facility]) (07/07/2013 06:35:00 [facility]) (06/30/2013 07:05:00 [facility]) Albumin Lvl [3.5-5.0 g/dL] 3.9 g/dL 4.1 g/dL 4.3 g/dL (07/14/2013 07:15:00 [facility]) (07/07/2013 06:35:00 [facility]) (06/30/2013 07:05:00 [facility]) Globulin [2.0-4.0 g/dL] 2.6 g/dL 2.7 g/dL 2.6 g/dL (07/14/2013 07:15:00 [facility]) (07/07/2013 06:35:00 [facility]) (06/30/2013 07:05:00 [facility]) A/G Ratio [0.7-1.6] 1.5 1.5 1.7 (07/14/2013 07:15:00 [facility]) (07/07/2013 06:35:00 [facility]) *HI* (06/30/2013 07:05:00 [facility]) Calcium Lvl [8.5-10.5 9.6 mg/dL 10.0 mg/dL 9.8 mg/dL mg/dL] (07/14/2013 07:15:00 [facility]) (07/07/2013 06:35:00 [facility]) (06/30/2013 07:05:00 [facility]) Phosphorus [2.5-4.5 mg/dL] 2.7 mg/dL 2.5 mg/dL 2.5 mg/dL (07/14/2013 07:15:00 [facility]) (07/07/2013 06:35:00 [facility]) (06/30/2013 07:05:00 [facility]) ALT [0-65 unit/L] 17 unit/L 18 unit/L 19 unit/L (07/14/2013 07:15:00 [facility]) (07/07/2013 06:35:00 [facility]) (06/30/2013 07:05:00 [facility]) AST [0-37 unit/L] 7 unit/L 6 unit/L 7 unit/L (07/14/2013 07:15:00 [facility]) (07/07/2013 06:35:00 [facility]) (06/30/2013 07:05:00 [facility]) Alk Phos [39-136 unit/L] 98 unit/L 115 unit/L 138 unit/L (07/14/2013 07:15:00 [facility]) (07/07/2013 06:35:00 [facility]) *HI* (06/30/2013 07:05:00 [facility]) LDH [98-192 unit/L] 175 unit/L 190 unit/L 185 unit/L (07/14/2013 07:15:00 [facility]) (07/07/2013 06:35:00 [facility]) (06/30/2013 07:05:00 [facility]) Bili Total [0.2-1.3 mg/dL] 0.3 mg/dL 0.4 mg/dL 0.4 mg/dL (07/14/2013 07:15:00 [facility]) (07/07/2013 06:35:00 [facility]) (06/30/2013 07:05:00 [facility]) 1Result Comment: The eGFR is calculated using [...] eGFR should be multiplied by the estimated BMI.2Result Comment: The eGFR is calculated using the [...] eGFR should be multiplied by the estimated BMI.3Result Comment: The eGFR is calculated using the [...] values reflect the clinical guidelines of the [place] [employer].5Interpretive Data: Adult reference range values reflect the clinical guidelines of the [place] [employer].6Interpretive Data: Adult reference range values reflect the clinical guidelines of the [place] [employer].LIPIDS Most recent to oldest 1 2 3 [Reference Range]: Chol [<=199 mg/dL] 187 mg/dL 200 mg/dL 200 mg/dL (07/14/2013 07:15:00 [facility] *HI* *HI* (07/07/2013 06:35:00 [facility]) ([facility] Trig [<=149 mg/dL] 235 mg/dL 182 mg/dL 152 mg/dL *HI* *HI* *HI* (07/14/2013 07:15:00 [facility]) (07/07/2013 06:35:00 [facility]) (06/30/2013 07:05:00 [facility]) TOXICOLOGY Most recent to oldest 1 2 3 [Reference Range]: Tacrolimus Lvl [5.0-15.0 9.7 ng/mL 9.1 ng/mL 13.4 ng/mL ng/mL] (07/14/2013 07:15:00 [facility]) (07/07/2013 06:35:00 [facility]) (06/30/2013 07:05:00 [facility]) Immune Cell Func 373 7 306 8 420 9 *NA* *NA* *NA* (07/14/2013 07:15:00 [facility]) (07/07/2013 06:35:00 [facility]) (06/30/2013 07:05:00 [facility]) 7Result Comment: Reference Range < md=859 Low immune cell response 226-524 Moderate immune cell response > qu=823 High immune cell response Test Performed at: [facility] [address] [address] TIKI DUARTE M.D.8Result Comment: Replicates for this patient have an elevated %CV. All replicates were greater than or equal to 225 ng/mL. Reference Range < rl=921 Low immune cell response 226-524 Moderate immune cell response > uo=929 High immune cell response Test Performed at: [facility] [address] [address] TIKI DUARTE M.D.9Result Comment: Reference Range < lh=738 Low immune cell response 226-524 Moderate immune cell response > el=530 High immune cell response Test Performed at: [facility] [address] [address] TIKI DUARTE M.D.URINE CHEM Most recent to oldest 1 2 3 [Reference Range]: U Creatinine 27.4 mg/dL 10 72.0 mg/dL 11 69.9 mg/dL 12 *NA* *NA* *NA* (07/14/2013 07:15:00 [facility]) (07/07/2013 06:35:00 [facility]) (06/30/2013 07:05:00 [facility]) U Protein 9.9 mg/dL 13 20.7 mg/dL 14 15.8 mg/dL 15 *NA* *NA* *NA* (07/14/2013 07:15:00 [facility]) (07/07/2013 06:35:00 [facility]) (06/30/2013 07:05:00 [facility]) U Prot/Creat 0.4 0.3 0.2 *NA* *NA* *NA* (07/14/2013 07:15:00 [facility]) (07/07/2013 06:35:00 [facility]) (06/30/2013 07:05:00 [facility]) 10Interpretive Data: No established reference ranges.11Interpretive Data: No established reference ranges.12Interpretive Data: No established reference ranges.13Interpretive Data: No established reference ranges.14Interpretive Data : No established reference ranges.15Interpretive Data: No established reference ranges.URINE AND STOOL Most recent to oldest 1 2 3 [Reference Range]: UA Turbidity [Clear] Clear Clear (07/14/2013 07:15:00 [facility]) (07/07/2013 06:35:00 [facility]) UA Color [Yellow] Light Yellow Yellow *NA* *NA* (07/14/2013 07:15:00 [facility]) ([facility] UA pH [5.0-8.0] 6.5 6.0 (07/14/2013 07:15:00 [facility]) (07/07/2013 06:35:00 [facility]) UA Spec Grav [<=1.030] 1.006 1.011 (07/14/2013 07:15:00 [facility]) (07/07/2013 06:35:00 [facility]) UA Glucose [Negative mg/dL] 200 mg/dL 150 mg/dL *ABN* *ABN* (07/14/2013 07:15:00 [facility]) (07/07/2013 06:35:00 [facility]) UA Blood [Negative] Negative Negative (07/14/2013 [facility] (07/07/2013 [facility] UA Ketones [Negative mg/dL] Negative mg/dL Negative mg/dL *NA* *NA* (07/14/2013 07:15:00 [facility]) (07/07/2013 06:35:00 [facility]) UA Protein [Negative mg/dL] Negative mg/dL Negative mg/dL (07/14/2013 07:15:00 [facility]) (07/07/2013 06:35:00 [facility]) UA Urobilinogen [0.1-1.0 <=1.0 mg/dL <=1.0 mg/dL mg/dL] *NA* *NA* (07/14/2013 07:15:00 [facility]) ([facility]07/[facility] UA Bili [Negative] Negative Negative *NA* *NA* (07/14/2013 07:15:00 [facility]) (07/07/2013 06:35:00 [facility]) UA Leuk Est [Negative] Negative Negative (07/14/2013 07:15:00 [facility]) (07/07/2013 06:35:00 [facility]) UA Nitrite [Negative] Negative Negative (07/14/2013 07:15:00 [facility]) ([facility]07[facility] UA WBC [0-5 /HPF] <1 /HPF 1 /HPF (07/14/2013 07:15:00 [facility]) (07/07/2013 06:35:00 [facility]) UA RBC [0-2 /HPF] <1 /HPF <1 /HPF (07/14/2013 07:15:00 [facility]) (07/07/2013 [facility]) UA Sq Epi None Seen *NA* (07/14/2013 07:15:00 [facility]) UA Sq Epi [Few /LPF] Occasional /LPF *NA* (07/07/2013 06:35:00 [facility]) HEMATOLOGY Most recent to oldest 1 2 3 [Reference Range]: WBC [3.7-10.4 K/CMM] 6.9 K/CMM 8.1 K/CMM 7.4 K/CMM (07/14/2013 07:15:[facility]) (07/07/2013 06:35:00 [facility]) (06/30/2013 07:05:00 [facility]) RBC [4.20-5.40 M/CMM] 4.21 M/CMM 4.18 M/CMM 4.31 M/CMM (07/14/2013 07:15:00 [facility] *LOW* (06/30/2013 07:05:00 [facility]) (07/07/2013 06:35:00 [facility]) Hgb [12.0-16.0 g/dL] 12.7 g/dL 12.8 g/dL 13.0 g/dL (07/14/2013 07:15:00 [facility]) (07/07/2013 [facility]) (06/30/2013 [facility]) Hct [36.0-48.0 %] 37.7 % 37.4 % 38.7 % (07/14/2013 07:15:00 [facility] (07/07/2013 [facility]) (06/30/2013 07:05:00 [facility]) MCV [81.0-99.0 fL] 89.6 fL 89.5 fL 90.0 fL (07/14/2013 07:15:00 [facility]) (07/07/2013 06:35:[facility]) (06/30/2013 07:05:00 [facility]) MCH [27.0-31.0 pg] 30.1 pg 30.5 pg 30.2 pg (07/14/2013 07:15:00 [facility]) (07/07/2013 06:35:[facility]) (06/30/2013 07:05:00 [facility]) MCHC [32.0-36.0 g/dL] 33.6 g/dL 34.1 g/dL 33.6 g/dL (07/14/2013 07:15:00 [facility]) (07/07/2013 06:35:00 [facility]) (06/30/2013 07:05:00 [facility]) RDW [11.5-14.5 %] 15.3 % 14.8 % 14.9 % *HI* *HI* *HI* (07/14/2013 07:15:00 [facility]) (07/07/2013 06:35:00 [facility]) (06/30/2013 07:05:00 [facility]) Platelet [133-450 K/CMM] 158 K/CMM 138 K/CMM 161 K/CMM (07/14/2013 07:15:00 [facility] (07/07/2013 06:35:[facility]) (06/30/2013 07:05:00 [facility]) MPV [7.4-10.4 fL] 10.2 fL 10.1 fL 10.0 fL (07/14/2013 07:15:00 [facility]) (07/07/2013 06:35:00 [facility]) (06/30/2013 07:05:[facility]) Segs [45.0-75.0 %] 73.2 % 75.2 % 73.5 % (07/14/2013 07:15:00 [facility]) *HI* (06/30/2013 [facility] (07/07/2013 [facility]) Lymphocytes [20.0-40.0 %] 20.7 % 20.1 % 20.4 % (07/14/2013 07:15:00 [facility]) (07/07/2013 06:35:00 [facility]) (06/30/2013 07:05:00 [facility]) Monocytes [2.0-12.0 %] 4.0 % 3.2 % 4.4 % (07/14/2013 07:15:00 [facility]) (07/07/2013 06:35:00 [facility]) (06/30/2013 07:05:00 [facility]) Eosinophils [0.0-4.0 %] 1.6 % 0.9 % 1.1 % (07/14/2013 07:15:00 [facility]) (07/07/2013 06:35:00 [facility]) (06/30/2013 07:05:00 [facility]) Basophils [0.0-1.0 %] 0.5 % 0.6 % 0.6 % (07/14/2013 07:15:00 [facility]) (07/07/2013 06:35:00 [facility]) (06/30/2013 07:05:00 [facility]) Segs-Bands # [1.5-8.1 K/CMM] 5.0 K/CMM 6.1 K/CMM 5.4 K/CMM (07/14/2013 07:15:00 [facility]) (07/07/2013 06:35:00 [facility]) (06/30/2013 07:05:00 [facility]) Lymphocytes # [1.0-5.5 1.4 K/CMM 1.6 K/CMM 1.5 K/CMM K/CMM] (07/14/2013 07:15:00 [facility]) (07/07/2013 06:35:00 [facility]) (06/30/2013 07:05:00 [facility]) Monocytes # [0.0-0.8 K/CMM] 0.3 K/CMM 0.3 K/CMM 0.3 K/CMM (07/14/2013 07:15:00 [facility]) (07/07/2013 06:35:00 [facility]) (06/30/2013 07:05:00 [facility]) Eosinophils # [0.0-0.5 0.1 K/CMM 0.1 K/CMM 0.1 K/CMM K/CMM] (07/14/2013 07:15:00 [facility]) (07/07/2013 06:35:00 [facility]) ([facility] REFERENCE LAB RESULTS Most recent to oldest [Reference Range]: 1 2 3 HLA Misc Test See Report 16 (07/07/2013 08:00:00 [facility]) Test Name HLA TYPING *Unknown* (07/07/2013 08:00:00 [facility]) 16Result Comment: Reference lab results scanned in [facility]. Results displayed in [id number]-Outside Lab Documents (Imaged) under date/time results were scanned. Report sent for scanning on 07/09/2013 13:12.MOLECULAR DIAGNOSTIC Most recent to oldest [Reference Range]: 1 2 3 Source CMV PCR Qnt Blood *NA* (07/14/2013 07:15:00 [facility]) CMV PCR Qnt [Negative] Negative (07/14/2013 07:15:00 [facility]) CMV PCR Qnt (log) <2.4 log 17 *NA* (07/14/2013 07:15:00 [facility]) Source BK Virus PCR Qnt Plasma *NA* (07/14/2013 07:15:00 [facility]) BK Virus PCR Qnt [Negative] Negative (07/14/2013 07:15:00 [facility]) BK Virus PCR Qnt (log) <2.0 log 18 *NA* (07/14/2013 07:15:00 [facility]) 17Interpretive Data: Analytic Quantification Range: 250-2,500,000 copies/mL (2.4 -6.4 log) CMV DNA detected below 250 copies/mL [...] verified by the [facility] within [facility]. The [facility] Laboratory is authorized under the Clinical Laboratory Improvement Amendments of 1988 (CLIA-88) to perform high complexity testing.18Interpretive Data: Analytic Quantification Range: 100-400,000,000 copies/mL (2.0-8.6 [...] verified by the [facility] within [facility]. The [facility] is authorized under the Clinical Laboratory Improvement Amendments of 1988 (CLIA-88) to perform high complexity testing. Medications Administered During Your Visit No data available for this section Immunizations No data available for this section Social History Social History Type Response Substance Abuse Previous Treatment: None. IV drug use: No. Drug use interferes with work/home: No. Ready to change: No. Household substance abuse concerns: No. Cessation Education Provided: No. Sexual Partner with STD? No. History of sexual abuse: No. Exercise Exercise type: Walking. Employment/School Operates hazardous equipment: No. Alcohol Previous treatment: None. Alcohol use interferes with work or home: No. Drinks more than intended: No. Others hurt by drinking: No. Household alcohol concerns: No. Smoking Status Use: Never smoker. Started age 0.0 Years. Stopped age 1 Years. Tobacco smoke exposure: None. Did the Patient Smoke Cigarettes Anytime During the Last 365 Days? No. Cessation Counseling Provided? No.
--- OUTSIDE RECORDS SUMMARY | 2018-08-01 03:12 | XMS REPORT | Summary of Care ---
:1965 Author Encounter PORSCHE Rojas(LEANA) [id number] Date(s): 10/08/13 - 10/09/13 [facility] [address] [facility], [address] Reason for Visit Phone Message Problem List Condition Effective Dates Status Health [...] Medications No data available for this section Medications Administered During Your Visit No data available for this section Immunizations No data available for this section Social History Social History Type Response Substance Abuse Previous treatment: None, IV drug use: No, Has drug use interfered with your work or home life? No, Ready to change: No, Concerns about substance abuse in household: No, Drug Cessation Education Provided No Sexual Sexual Partner With STD No, History of sexual abuse: No Exercise Exercise type: Walking Employment/School Hazardous equipment operation: No Alcohol Previous treatment: None, Has alcohol use interfered with work or home life? No, Do you ever drink more than intended? No, Has anyone been hurt or at risk by your drinking? No, Concerns about alcohol use in household: No Smoking Status Never smoker, Exposure to Tobacco Smoke None, Cigarette Smoking Last 365 Days No, Reg Smoking Cessation Counseling No
--- OUTSIDE RECORDS SUMMARY | 2018-08-01 03:12 | XMS REPORT | Summary of Care ---
:1965 Author Encounter PORSCHE Rojas(LEANA) [id number] Date(s): 09/24/13 - 09/24/13 [facility] [address] Discharge Disposition: Home Physician Attending: Kaleigh Maki Reason for Visit 719.45 - JOINT PAIN-PELV Problem List Condition Effective Dates Status Health [...]
--- OUTSIDE RECORDS SUMMARY | 2018-08-01 03:12 | XMS REPORT | Summary of Care ---
:1965 Author Encounter Dates Location Diagnoses Discharge Disposition Providers 07/28/2013 - [facility] Shanae Mcbride 08/26/[address] [place] [address] Shanae Mcbride [address] Reason for Visit FOLLOW UP COAG Vital Signs Most recent to oldest [Reference Range]: 1 Height 157 cm (07/14/2013 08:03:00 [facility]) Temperature Oral [96.4-99.1 DegF] 96.0 DegF *LOW* (07/14/2013 08:03:00 [facility]) Systolic Blood Pressure [90-140 mmHg] 128 mmHg (07/14/2013 08:03:00 [facility]) Diastolic Blood Pressure [60-90 mmHg] 75 mmHg (07/14/2013 08:03:00 [facility]) Respiratory Rate [14-20 BRMIN] 18 BRMIN (07/14/2013 08:03:00 [facility]) Peripheral Pulse Rate [60-100 bpm] 56 bpm *LOW* (07/14/2013 08:03:00 [facility]) Weight 68.9 kg (07/14/2013 08:03:00 [facility]) Body Mass Index 27.95 m2 (07/14/2013 08:03:00 [facility]) Problem List Condition Effective Dates Status Health [...] Substance Reaction Severity Status NKDA Active Medications Medication Instructions Start Date Stop Date Status famotidine 20 mg oral 20 mg=1 tab, Daily, 0 07/30/2013 Ordered tablet Refill(s) insulin aspart , TID-Before Meals, 0 07/30/2013 Ordered Refill(s) Medications Administered During Your Visit No data [...]
--- OUTSIDE RECORDS SUMMARY | 2018-08-01 03:12 | XMS REPORT | Summary of Care ---
:1965 Author Encounter Dates Location Diagnoses Discharge Disposition Providers 07/31/2013 - [facility] Hema Donahue 07/31/[address] [place] [address] Hema Donahue [address] Reason for Visit LAB Problem List Condition Effective Dates Status Health [...] No data available for this section Results REFERENCE LAB RESULTS Most recent to oldest [Reference Range]: 1 HLA Misc Test See Report 1 (07/31/2013 08:00:00 [facility]) Test Name HLA TYPING *Unknown* (07/31/2013 08:00:00 [facility]) 1Result Comment: Reference lab results scanned in [facility]. Results displayed in [id number]-Outside Lab Documents (Imaged) under date/time results were scanned. Report sent for scanning on 08/06/2013 16:10. Medications Administered During Your Visit No data [...]
--- OUTSIDE RECORDS SUMMARY | 2018-08-01 03:12 | XMS REPORT | Summary of Care ---
:1965 Author Encounter HQ Bob(LEANA) [id number] Date(s): 09/08/13 - 10/07/[address] Discharge Disposition: Home Physician Attending: Shanae Toussaint MD Physician_Referring: Shanae Toussaint MD Reason for Visit FOLLOW UP DIABETES Problem List Condition Effective Dates Status Health [...] Substance Reaction Severity Status NKDA Active Medications NovoLOG FlexPen 100 units/mL subcutaneous solution , SUB-Q, TID-Before Meals, # 10 mL, 0 Refill(s), other Start Date: 09/10/13 Status: OrderedPrograf 1 mg oral capsule 3 mg=3 cap, PO, Q12H, 0 Refill(s) Start Date: 09/10/13 Stop Date: 10/06/13 Status: Discontinued Medications Administered During Your Visit No data [...]
--- OUTSIDE RECORDS SUMMARY | 2018-08-01 03:12 | XMS REPORT | Summary of Care ---
:1965 Author Encounter Dates Location Diagnoses Discharge Providers Disposition 07/31/2013 - [facility] Final: Complications of Transplanted Kidney Home Salvador Mckeon 07/31/2013 [address] [facility] Salvador Mckeon [address] Final: Hypertensive Chronic Kidney Disease, Unspecified, with Chronic Kidney Disease Stage I Through Stage IV, or Unspecified Shanae Toussaint Final: Renal Sclerosis, Unspecified Final: Diabetes mellitus without mention of complication, type II or unspecified type, not stated as uncontrolled Final: Other and Unspecified Hyperlipidemia Final: Long-Term (Current) Use of Insulin Final: Long-Term (Current) Use of Steroids Final: Long-Term (Current) Use of Other Medications Reason for Visit TRANSPLANT REJECTION Vital Signs Most recent to oldest [Reference 1 2 Range]: Height 162.56 cm (07/31/2013 10:04:00 [facility]) Systolic Blood Pressure [90-140 110 mmHg mmHg] (07/31/2013 10:10:00 [facility] Diastolic Blood Pressure [60-90 65 mmHg mmHg] (07/31/2013 10:10:00 [facility]) Respiratory Rate [14-20 BRMIN] 18 BRMIN 18 BRMIN (07/31/2013 11:19:00 [place]) (07/31/2013 10:10:00 [facility]) Peripheral Pulse Rate [60-100 60 bpm 59 bpm bpm] (07/31/2013 11:19:00 [facility]) *LOW* (07/31/2013 10:10:00 [facility]) Weight 70 kg (07/31/2013 10:04:00 [facility]) Body Mass Index 26.49 m2 (07/31/2013 10:04:00 [facility]) Problem List Condition Effective Dates Status Health [...] Medication Instructions Start Date Stop Date Status acetaminophen 650 mg, 2 tab, Route: PO, Drug form: TAB, Q4H, Dosing Weight 70 , kg, PRN Pain 1-3/Temp > 100.4 F, Start date: 07/31/13 11:18:00, Duration: 30 day, Stop date: 08/30/13 11:17:00 07/31/2013 08/01/2013 Discontinued Do not exceed 4 gm/day. (Same as: Tylenol) DDAVP + Sodium Chloride 20 microgram, 5 mL, 220 ml/hr, Route: IVPB, Drug Form : INJ, ONCE, Start date: 07/31/13 10:04:00, Stop date: 07/31/13 10:04:00 201307/31/2013 Ordered 0.9% IV 50 mL (Same As: DDAVP) Results BLOOD BANK RESULTS Most recent to oldest [Reference Range]: 1 ABO/Rh O POS *Unknown* (07/31/2013 10:00:00 [facility]) Antibody Scrn Negative (07/31/2013 10:00:00 [facility]) Medications Administered During Your Visit No data available for this section Immunizations No data available for this section Procedures Procedure Type Body Site Date of Procedure Related Diagnosis Closed [percutaneous] [needle] 07/31/2013 00:00:00 Biopsy of Kidney [facility] Diagnostic Ultrasound of 07/31/2013 00:00:00 Urinary System [facility] Renal biopsy; percutaneous, by 07/31/2013 00:00:00 trocar or needle [facility] Ultrasonic guidance for needle 07/31/2013 00:00:00 placement (eg, biopsy, [facility] aspiration, injection, localization device), imaging supervision and interpretation Social History Social History Type Response Substance [...] 365 Days? No. Cessation Counseling Provided? No. Assessment and Plan Extracted from: Title: Pre-op H & P Author: Salvador Mckeon Date: 07/31/2013 Assessment/Plan Ordered: Admit / Condition Patient s/p kidney transplant from living donor complicated by [facility], still with persistent DSA, patient to have repeat bx to see if any change in [facility] after treatment. Patient advised of risks, be nefits, and indications of procedure and agrees to proceed. Informed consent obtained.
--- OUTSIDE RECORDS SUMMARY | 2018-08-01 03:12 | XMS REPORT | Summary of Care ---
:1965 Author Encounter Dates Location Diagnoses Discharge Disposition Providers 07/28/2013 - [facility] Adrogue, Robert E 08/26/[address] [place] [address] Adrogue, Robert E [address] Reason for Visit POST CLINIC // A,B,C,FK, UA,UCX,BK,CMV Vital Signs Most recent to oldest [Reference 1 2 Range]: Height 162 cm 162.56 cm (08/18/2013 07:38:00 [facility]) (07/28/2013 08:04:00 [facility]) Systolic Blood Pressure [90-140 114 mmHg 131 mmHg mmHg] (08/18/2013 07:38:00 [facility]) (07/28/2013 08:04:00 [facility] [place]) Diastolic Blood Pressure [60-90 69 mmHg 74 mmHg mmHg] (08/18/2013 07:38:00 [facility]) (07/28/2013 08:04:00 [facility] [place]) Respiratory Rate [14-20 BRMIN] 18 BRMIN 18 BRMIN (08/18/2013 07:38:00 [facility]) (07/28/2013 08:04:00 [facility]) Peripheral Pulse Rate [60-100 55 bpm 57 bpm bpm] *LOW* *LOW* (08/18/2013 07:38:00 [facility]) (07/28/2013 08:04:00 [facility]) Weight 70.3 kg 69.1 kg (08/18/2013 07:38:00 [facility]) (07/28/2013 08:04:00 [facility]) Body Mass Index 26.79 m2 26.15 m2 (08/18/2013 07:38:00 [facility]) (07/28/2013 08:04:00 [facility]) Problem List Condition Effective Dates Status Health [...] Medication Instructions Start Date Stop Date Status Coreg 25 mg oral tablet 25 mg=1 tab, PO, BID, # 60 08/18/2013 Ordered tab, 6 Refill(s), Pharmacy: [facility] [id number] predniSONE 10 mg oral tablet 10 mg=1 tab, PO, Daily, 0 07/28/2013 Ordered Refill(s) sodium bicarbonate 650 mg 1,300 mg=2 tab, TID, 0 07/28/2013 Ordered oral tablet Refill(s) Results ELECTROLYTES Most recent to oldest [Reference Range]: 1 Sodium Lvl [135-145 mEq/L] 142 mEq/L (07/28/2013 07:10:00 [facility]) Potassium Lvl [3.5-5.1 mEq/L] 3.8 mEq/L (07/28/2013 07:10:00 [facility]) Chloride Lvl [95-109 mEq/L] 108 mEq/L (07/28/2013 07:10:00 [facility]) CO2 [24-32 mEq/L] 25 mEq/L (07/28/2013 07:10:00 [facility]) AGAP [10.0-20.0 mEq/L] 12.8 mEq/L (07/28/2013 07:10:00 [facility]) CHEM PANEL Most recent to oldest [Reference Range]: 1 Creatinine Lvl [0.5-1.4 mg/dL] 1.0 mg/dL (07/28/2013 07:10:00 [facility]) eGFR 67 mL/min/1.73m2 1 *NA* (07/28/2013 07:10:00 [facility]) BUN [7-22 mg/dL] 29 mg/dL *HI* (07/28/2013 07:10:00 [facility]) B/C Ratio [6-25] 29 *HI* (07/28/2013 07:10:00 [facility]) Glucose Lvl [70-99 mg/dL] 99 mg/dL 2 (07/28/2013:10 [facility]) Uric Acid [2.5-7.0 mg/dL] 5.1 mg/dL (07/28/2013:10 [facility]) Total Protein [6.4-8.4 g/dL] 6.7 g/dL (07/28/2013: [facility]) Albumin Lvl [3.5-5.0 g/dL] 4.1 g/dL (07/28/2013: [facility]) Globulin [2.0-4.0 g/dL] 2.6 g/dL (07/28/2013 [facility]) A/G Ratio [0.7-1.6] 1.6 (07/28/2013 [facility]) Calcium Lvl [8.5-10.5 mg/dL] 10.1 mg/dL (07/28/2013: [facility]) Phosphorus [2.5-4.5 mg/dL] 3.0 mg/dL (07/28/2013:10 [facility]) ALT [0-65 unit/L] 21 unit/L (07/28/2013: [facility]) AST [0-37 unit/L] 11 unit/L (07/28/2013:10 [facility]) Alk Phos [39-136 unit/L] 92 unit/L (07/28/2013: [facility]) LDH [98-192 unit/L] 179 unit/L (07/28/2013: [facility]) Bili Total [0.2-1.3 mg/dL] 0.5 mg/dL (07/28/2013:: [facility]) 1Result Comment: The eGFR is calculated using [...] eGFR should be multiplied by the estimated BMI.2Interpretive Data: Adult reference range values reflect the clinical guidelines of the [place] [employer].LIPIDS Most recent to oldest [Reference Range]: 1 Chol [<=199 mg/dL] 218 mg/dL *HI* (07/28/2013 07:10:00 [facility]) Trig [<=149 mg/dL] 219 mg/dL *HI* (07/28/2013 07:10:00 [facility]) TOXICOLOGY Most recent to oldest [Reference Range]: 1 Tacrolimus Lvl [5.0-15.0 ng/mL] 8.3 ng/mL (07/28/2013 07:10:00 [facility]) Immune Cell Func 519 3 *NA* (07/28/2013 07:10:00 [facility]) 3Result Comment: Reference Range < tc=360 Low immune cell response 226-524 Moderate immune cell response > kj=357 High immune cell response Test Performed at: [facility] [address] [id number] TIKI DUARTE M.D.URINE CHEM Most recent to oldest [Reference Range]: 1 U Creatinine 118.7 mg/dL 4 *NA* (07/28/2013 07:10:00 [facility]) U Protein 18.6 mg/dL 5 *NA* (07/28/2013 07:10:00 [facility]) U Prot/Creat 0.2 *NA* (07/28/2013 07:10:00 [facility]) 4Interpretive Data: No established reference ranges.5Interpretive Data: No established reference ranges.URINE AND STOOL Most recent to oldest [Reference Range]: 1 UA Turbidity [Clear] Clear (07/28/2013 07:10:00 [facility]) UA Color [Yellow] Yellow *NA* (07/28/2013 07:10:00 [facility]) UA pH [5.0-8.0] 5.5 (07/28/2013 07:10:00 [facility]) UA Spec Grav [<=1.030] 1.016 (07/28/2013 07:10:00 [facility]) UA Glucose [Negative mg/dL] 30 mg/dL *ABN* (07/28/2013 07:10:00 [facility]) UA Blood [Negative] Negative (07/28/2013 07:10:00 [facility]) UA Ketones [Negative mg/dL] Negative mg/dL *NA* (07/28/2013 07:10:00 [facility]) UA Protein [Negative mg/dL] Negative mg/dL (07/28/2013 07:10:00 [facility]) UA Urobilinogen [0.1-1.0 mg/dL] <=1.0 mg/dL *NA* (07/28/2013 07:10:00 [facility]) UA Bili [Negative] Negative *NA* (07/28/2013 07:10:00 [facility]) UA Leuk Est [Negative] Negative (07/28/2013 07:10:00 [facility]) UA Nitrite [Negative] Negative (07/28/2013 07:10:00 [facility]) UA WBC [0-5 /HPF] 2 /HPF (07/28/2013 07:10:00 [facility]) UA RBC [0-2 /HPF] <1 /HPF (07/28/2013 07:10:00 [facility]) UA Sq Epi [Few /LPF] Occasional /LPF *NA* (07/28/2013 07:10:00 [facility]) UA Mucus [None Seen /LPF] Few /LPF *NA* (07/28/2013 07:10:00 [facility]) HEMATOLOGY Most recent to oldest [Reference Range]: 1 WBC [3.7-10.4 K/CMM] 6.1 K/CMM (07/28/2013 07:10:00 [facility]) RBC [4.20-5.40 M/CMM] 4.20 M/CMM (07/28/2013 07:10:00 [facility]) Hgb [12.0-16.0 g/dL] 12.5 g/dL (07/28/2013 07:10:00 [facility]) Hct [36.0-48.0 %] 38.0 % (07/28/2013 07:10:00 [facility]) MCV [81.0-99.0 fL] 90.5 fL (07/28/2013:10: [facility]) MCH [27.0-31.0 pg] 29.8 pg (07/28/2013:10: [facility]) MCHC [32.0-36.0 g/dL] 32.9 g/dL (07/28/2013:10: [facility]) RDW [11.5-14.5 %] 14.9 % *HI* (07/28/2013:10:00 [facility]) Platelet [133-450 K/CMM] 179 K/CMM (07/28/2013:10: [facility]) MPV [7.4-10.4 fL] 10.6 fL *HI* (07/28/2013:10: [facility]) Segs [45.0-75.0 %] 73.7 % (07/28/2013:10:00 [facility]) Lymphocytes [20.0-40.0 %] 20.0 % (07/28/2013 07:10:00 [facility]) Monocytes [2.0-12.0 %] 4.0 % (07/28/2013:10:00 [facility]) Eosinophils [0.0-4.0 %] 1.7 % (07/28/2013:10:00 [facility]) Basophils [0.0-1.0 %] 0.6 % (07/28/2013:10:00 [facility]) Segs-Bands # [1.5-8.1 K/CMM] 4.5 K/CMM (07/28/2013:10:00 [facility]) Lymphocytes # [1.0-5.5 K/CMM] 1.2 K/CMM (07/28/2013 07:10:00 [facility]) Monocytes # [0.0-0.8 K/CMM] 0.2 K/CMM (07/28/2013 07:10:00 [facility]) Eosinophils # [0.0-0.5 K/CMM] 0.1 K/CMM (07/28/2013 07:10:00 [facility] RBC Morph Normal (07/28/2013 07:10:00 [facility]) Plt Morph Normal (07/28/2013 07:10:00 [facility]) MOLECULAR DIAGNOSTIC Most recent to oldest [Reference Range]: 1 Source CMV PCR Qnt Blood *NA* (07/28/2013 07:10:00 [facility]) CMV PCR Qnt [Negative] Negative (07/28/2013 07:10:00 [facility]) CMV PCR Qnt (log) <2.4 log 6 *NA* (07/28/2013 07:10:00 [facility]) Source BK Virus PCR Qnt Plasma *NA* (07/28/2013 07:10:00 [facility]) BK Virus PCR Qnt [Negative] Negative (07/28/2013 07:10:00 [facility]) BK Virus PCR Qnt (log) <2.0 log 7 *NA* (07/28/2013 07:10:00 [facility]) 6Interpretive Data: Analytic Quantification Range: 250-2,500,000 copies/mL (2.4- [...] verified by the [facility] within [facility]. The [facility] Laboratory is authorized under the Clinical Laboratory Improvement Amendments of 1988 (CLIA-88) to perform high complexity testing.7Interpretive Data: Analytic Quantification Range: 100-400,000,000 copies/mL (2.0-8.6 [...] verified by the [facility] within [facility]. The [facility] is [...]
--- OUTSIDE RECORDS SUMMARY | 2018-08-01 03:12 | XMS REPORT | Summary of Care ---
:1965 Author Encounter Dates Location Diagnoses Discharge Disposition Providers 07/14/2013 - [facility] Shanae Toussaint 08/12/[address] [place] [address] Reason for Visit DIABETES Problem List Condition Effective Dates Status [...] Medication Instructions Start Date Stop Date Status Macrobid 100 mg oral 100 mg=1 cap, PO, BID, # 06/23/2013 07/28/2013 Discontinued capsule 28 cap, 0 Refill(s) Macrobid 100 mg oral 100 mg=1 cap, PO, BID, # 06/23/2013 07/28/2013 Discontinued capsule 28 cap, 0 Refill(s) NIFEdipine 90 mg oral 90 mg=1 tab, PO, BID, # 30 06/23/2013 Ordered tablet, extended release tab, 0 Refill(s) Medications Administered During Your Visit No [...]
--- OUTSIDE RECORDS SUMMARY | 2018-08-01 03:13 | XMS REPORT | Summary of Care ---
:1965 Author Encounter [facility]) [id number] Date(s): 01/15/14 - 02/13/[address] Discharge Disposition: Home Physician Attending: Robert Sinha MD Physician_Referring: Robert Sinha MD Reason for Visit RENAL LABS Problem List Condition Effective Dates Status Health [...] Substance Reaction Severity Status NKDA Active Medications sodium bicarbonate 650 mg oral tablet 1,300 mg=2 tab, PO, BID, # 120 tab, 3 Refill(s), Pharmacy: [id number] Start Date: 01/15/14 Status: Ordered Medications Administered During Your Visit No data [...]
--- OUTSIDE RECORDS SUMMARY | 2018-08-01 03:13 | XMS REPORT | Summary of Care ---
:1965 Author Encounter [facility]) [id number] Date(s): 12/04/13 - 01/02/[address] Discharge Disposition: Home Physician Attending: Robert Sinha MD Physician_Referring: Robert Sinha MD Reason for Visit LABS Vital Signs Most recent to oldest [Reference Range]: 1 Height 160.02 cm (12/04/13 8:07 AM) Systolic Blood Pressure [90-140 mmHg] 121 mmHg (12/04/13 8:07 AM) Diastolic Blood Pressure [60-90 mmHg] 80 mmHg (12/04/13 8:07 AM) Respiratory Rate [14-20 BRMIN] 18 BRMIN (12/04/13 8:07 AM) Peripheral Pulse Rate [60-100 bpm] 52 bpm *LOW* (12/04/13 8:07 AM) Weight 71 kg (12/04/13 8:07 AM) Body Mass Index 27.73 m2 (12/04/13 8:07 AM) Problem List Condition Effective Dates Status Health [...] Substance Reaction Severity Status NKDA Active Medications Arava 20 mg oral tablet 20 mg=1 tab, PO, Daily, # 30 tab, 0 Refill(s) Start Date: 12/16/13 Status: Ordered Medications Administered During Your Visit [...]
--- OUTSIDE RECORDS SUMMARY | 2018-08-01 03:13 | XMS REPORT | Summary of Care ---
:1965 Author Encounter [facility]) [id number] Date(s): 09/01/13 - 09/30/[address] Discharge Disposition: Home Physician Attending: Robert Sinha MD Physician_Referring: Robert Sinha MD Reason for Visit LABS WITH DSA Problem List Condition Effective Dates Status Health [...] Substance Reaction Severity Status NKDA Active Medications Tessalon 200 mg oral capsule 200 mg=1 cap, PO, TID, # 42 cap, 0 Refill(s), Pharmacy: [id number] Start Date: 09/08/13 Stop Date: 09/22/13 Status: Discontinued Results REFERENCE LAB RESULTS Most recent to oldest [Reference Range]: 1 HLA Misc Test See Report 1 (09/01/13 8:00 AM) Test Name HLA TYPING *Unknown* (09/01/13 8:00 AM) 1Result Comment: Reference lab results scanned in [facility]. Results displayed in [id number]Outside Lab Documents (Imaged) under date/time results were scanned. Report sent for scanning on 09/05/2013 18:18. Medications Administered During Your Visit No data [...]
--- OUTSIDE RECORDS SUMMARY | 2018-08-01 03:13 | XMS REPORT | Summary of Care ---
:1965 Author Encounter [facility](LEANA) [id number] Date(s): 12/04/13 - 01/02/[address] Discharge Disposition: Home Physician Attending: Shanae [...] Substance Reaction Severity Status NKDA Active Medications Levemir FlexPen 100 units/mL subcutaneous solution 32 units, SUB-Q, Daily, # 10 mL, 0 Refill(s), given to patient Start Date: 12/04/13 Status: Ordered Medications Administered During Your Visit [...]
--- OUTSIDE RECORDS SUMMARY | 2018-08-01 03:13 | XMS REPORT | CCD ---
:1965 Author Organization [facility] Care Team Providers Name Role Phone Se Leavitt Consulting Provider Salvador Mckeon Referring Provider Hema Donahue Consulting Provider Allergies, Adverse Reactions, Alerts Substance Reaction Status NKDA Active Medications Medication Instructions Start Date End Date Status insulin glargine 20 unit, 0.2 mL, Route: 05/26/2013 05/27/2013 Discontinued SUB-Q, Drug form: INJ, Daily, Dosing Weight 70, kg, Priority: NOW, Start date: 05/26/13 14:16:00, Stop date: 06/25/13 9:00:00Same as Lantus Solostar PEN"single patient use only" Stable for 28 days at room temperature.Expires in days from Date insulin aspart 5 unit, 0.05 mL, Route: 05/26/2013 05/27/2013 Discontinued SUB-Q, Drug form: SOLN, Before Dinner, Dosing Weight 70, kg, Start date: 05/26/13 16:30:00, Stop date: 06/24/13 16:30:00Roll in palms of hands gently; Do not shake vigorously. (Same as: NovoLog)"single patient use only" Stable for 28 days at room temperature.Expires in days from Date insulin aspart 5 unit, 0.05 mL, Route: 05/27/2013 05/27/2013 Discontinued SUB-Q, Drug form: SOLN, Before Lunch, Dosing Weight 70, kg, Start date: 05/27/13 11:30:00, Stop date: 06/25/13 11:30:00Roll in palms of hands gently; Do not shake vigorously. (Same as: NovoLog)"single patient use only" Stable for 28 days at room temperature.Expires in days from Date insulin aspart 5 unit, 0.05 mL, Route: 05/27/2013 05/27/2013 Discontinued SUB-Q, Drug form: SOLN, Before Breakfast, Dosing Weight 70, kg, Start date: 05/27/13 7:30:00, Stop date: 06/25/13 7:30:00Roll in palms of hands gently; Do not shake vigorously. (Same as: NovoLog)"single patient use only" Stable for 28 days at room temperature.Expires in days from Date methylPREDNISolone SODium 40 mg, 1 mL, Route: IVP, 05/27/2013 05/27/2013 Completed SUCCinate Drug form: INJ, ONCE, Dosing Weight 70, kg, Start date: 05/27/13 9:00:00, Stop date: 05/27/13 9:00:00(Same as:Solu-Medrol, A-Methapred) predniSONE 30 mg, 3 tab, Route: PO, 05/28/2013 05/27/2013 Canceled Drug form: TAB, Daily, Dosing Weight 70, kg, Start date: 05/28/13 9:00:00, Duration: 30 day, Stop date: 06/26/13 9:00:00(Same as: PredniSONE) Take with food. insulin aspart 3 unit, 0.03 mL, Route: 05/23/2013 05/27/2013 Discontinued SUB-Q, Drug form: SOLN, TID-Before Meals, Dosing Weight 70, kg, PRN Blood Glucose Results, Start date: 05/23/13 22:53:00, Duration: 30 day, Stop date: 06/22/13 22:52:00Roll in palms of hands gently; Do not shake vigorously. (Same as: NovoLog)"single patient use only" Stable for 28 days at room temperature.Expires in days from Date insulin aspart 15 unit, 0.15 mL, Route: 05/23/2013 05/26/2013 Discontinued SUB-Q, Drug form: SOLN, TID-Before Meals, Dosing Weight 70, kg, PRN Blood Glucose Results, Start date: 05/23/13 22:53:00, Duration: 30 day, Stop date: 06/22/13 22:52:00Roll in palms of hands gently; Do not shake vigorously. (Same as: NovoLog)"single patient use only" Stable for 28 days at room temperature.Expires in days from Date insulin aspart 12 unit, 0.12 mL, Route: 05/23/2013 05/27/2013 Discontinued SUB-Q, Drug form: SOLN, TID-Before Meals, Dosing Weight 70, kg, PRN Blood Glucose Results, Start date: 05/23/13 22:53:00, Duration: 30 day, Stop date: 06/22/13 22:52:00Roll in palms of hands gently; Do not shake vigorously. (Same as: NovoLog)"single patient use only" Stable for 28 days at room temperature.Expires in days from Date insulin aspart 9 unit, 0.09 mL, Route: 05/23/2013 05/27/2013 Discontinued SUB-Q, Drug form: SOLN, TID-Before Meals, Dosing Weight 70, kg, PRN Blood Glucose Results, Start date: 05/23/13 22:53:00, Duration: 30 day, Stop date: 06/22/13 22:52:00Roll in palms of hands gently; Do not shake vigorously. (Same as: NovoLog)"single patient use only" Stable for 28 days at room temperature.Expires in days from Date insulin aspart 6 unit, 0.06 mL, Route: 05/23/2013 05/27/2013 Discontinued SUB-Q, Drug form: SOLN, TID-Before Meals, Dosing Weight 70, kg, PRN Blood Glucose Results, Start date: 05/23/13 22:53:00, Duration: 30 day, Stop date: 06/22/13 22:52:00Roll in palms of hands gently; Do not shake vigorously. (Same as: NovoLog)"single patient use only" Stable for 28 days at room temperature.Expires in days from Date methylPREDNISolone SODium 125 mg, 2 mL, Route: 05/25/2013 05/25/2013 Completed SUCCinate IVPB, Drug form: INJ, ONCE, Dosing Weight 70, kg, Start date: 05/25/13 9:00:00, Stop date: 05/25/13 9:00:00(Same as:Solu-Medrol, A-Methapred) methylPREDNISolone SODium 250 mg, 4 mL, Route: 05/24/2013 05/24/2013 Completed SUCCinate + Sodium IVPB, Drug form: INJ, Chloride 0.9% IV 100 mL ONCE, Dosing Weight 70, kg, Start date: 05/24/13 9:00:00, Stop date: 05/24/13 9:00:00(Same as:Solu-Medrol, A-Methapred) methylPREDNISolone SODium 80 mg, 2 mL, Route: IVP, 05/26/2013 05/26/2013 Completed SUCCinate Drug form: INJ, ONCE, Dosing Weight 70, kg, Start date: 05/26/13 9:00:00, Stop date: 05/26/13 9:00:00(Same as:Solu-Medrol, A-Methapred) CellCept 250 mg oral 1,000 mg=4 cap, PO, Q12H, 05/27/2013 Ordered capsule # 240 cap, 3 Refill(s), called to pharmacy Ancef 2 gm, Route: IVPB, ONCE, 05/23/2013 05/23/2013 Completed Dosing Weight 70, kg, Start date: 05/23/13 19:01:00, Duration: 1 doses or times, Stop date: 05/23/13 19:01:00 insulin isophane-NPH 10 unit, Route: SUB-Q, 05/25/2013 05/24/2013 Canceled Before Breakfast, Dosing Weight 70, kg, Start date: 05/25/13 10:00:00, Duration: 30 day, Stop date: 06/24/13 7:30:00 CellCept + Dextrose 5% in 1,000 mg, 40 mL, Route: 05/26/2013 05/26/2013 Completed Water IV 250 mL IVPB, ONCE, Dosing Weight 70, kg, Start date: 05/26/13 10:00:00, Stop date: 05/26/13 10:00:00Compatible with D5W only. basiliximab + Sodium 20 mg, 5 mL, Route: IVPB, 05/26/2013 05/26/2013 Canceled Chloride 0.9% IV 50 mL Drug form: INJ, ONCE, Dosing Weight 70, kg, Start date: 05/26/13 22:53:00, Stop date: 05/26/13 22:53:00Simulect. Do not send via pneumatic tube system. (Same As: Simulect) tacrolimus 3 mg, 3 cap, Route: PO, 05/23/2013 05/27/2013 Discontinued Drug form: CAP, [id number], Dosing Weight 70, kg, Start date: 05/23/13 22:50:00, Duration: 30 day, Stop date: 06/22/13 20:00:00Avoid grapefruit and grapefruit juice.(Same As: Prograf) pantoprazole 40 mg, 1 tab, Route: PO, 05/24/2013 05/26/2013 Discontinued Drug form: ECTAB, Before Dinner, Dosing Weight 70, kg, Start date: 05/24/13 16:30:00, Duration: 30 day, Stop date: 06/22/13 16:30:00Tablet should not be chewed or crushed.(Same as: Protonix) mycophenolate mofetil + 1,000 mg, 40 mL, Route: 05/23/2013 05/26/2013 Discontinued Dextrose 5% in Water IV IVPB, Drug form: INJ, 250 mL [id number], Dosing Weight 70, kg, Start date: 05/23/13 22:56:00, Stop date: 06/22/13 20:00:00Compatible with D5W only. Dextrose 50% Syringe 12.5 gm, 25 mL, Route: 05/26/2013 05/27/2013 Discontinued IVP, Drug Form: INJ, Dosing Weight 70, kg, PRN, PRN Blood Glucose Results, Start date: 05/26/13 22:41:00, Duration: 30 day, Stop date: 06/25/13 22:40:00 glucagon 1 mg, Route: IM, Drug 05/26/2013 05/27/2013 Discontinued form: PDR/INJ, PRN, Dosing Weight 70, kg, PRN Blood Glucose Results, Start date: 05/26/13 22:41:00, Duration: 30 day, Stop date: 06/25/13 22:40:00 Dextrose 50% Syringe 25 gm, 50 mL, Route: IVP, 05/26/2013 05/27/2013 Discontinued Drug Form: INJ, Dosing Weight 70, kg, PRN, PRN Blood Glucose Results, Start date: 05/26/13 22:41:00, Duration: 30 day, Stop date: 06/25/13 22:40:00 insulin aspart 2 unit, 0.02 mL, Route: 05/26/2013 05/27/2013 Discontinued SUB-Q, Drug form: SOLN, Bedtime, Dosing Weight 70, kg, PRN Blood Glucose Results, Start date: 05/26/13 22:41:00, Duration: 30 day, Stop date: 06/25/13 22:40:00Roll in palms of hands gently; Do not shake vigorously. (Same as: NovoLog)"single patient use only" Stable for 28 days at room temperature.Expires in days from Date insulin aspart 1 unit, 0.01 mL, Route: 05/26/2013 05/27/2013 Discontinued SUB-Q, Drug form: SOLN, Bedtime, Dosing Weight 70, kg, PRN Blood Glucose Results, Start date: 05/26/13 22:41:00, Duration: 30 day, Stop date: 06/25/13 22:40:00Roll in palms of hands gently; Do not shake vigorously. (Same as: NovoLog)"single patient use only" Stable for 28 days at room temperature.Expires in days from Date insulin aspart 4 unit, 0.04 mL, Route: 05/26/2013 05/27/2013 Discontinued SUB-Q, Drug form: SOLN, Bedtime, Dosing Weight 70, kg, PRN Blood Glucose Results, Start date: 05/26/13 22:41:00, Duration: 30 day, Stop date: 06/25/13 22:40:00Roll in palms of hands gently; Do not shake vigorously. (Same as: NovoLog)"single patient use only" Stable for 28 days at room temperature.Expires in days from Date insulin aspart 3 unit, 0.03 mL, Route: 05/26/2013 05/27/2013 Discontinued SUB-Q, Drug form: SOLN, Bedtime, Dosing Weight 70, kg, PRN Blood Glucose Results, Start date: 05/26/13 22:41:00, Duration: 30 day, Stop date: 06/25/13 22:40:00Roll in palms of hands gently; Do not shake vigorously. (Same as: NovoLog)"single patient use only" Stable for 28 days at room temperature.Expires in days from Date senna 8.6 mg oral tablet 8.6 mg=1 tab, PO, BID, # 05/27/2013 Ordered 60 tab, 0 Refill(s), called to pharmacy amLODipine 10 mg, 1 tab, Route: PO, 05/23/2013 05/23/2013 Discontinued Drug form: TAB, Daily, Dosing Weight 70, kg, Start date: 05/23/13 9:00:00, Duration: 30 day, Stop date: 06/21/13 9:00:00(Same as: Norvasc) bisacodyl 10 mg, 1 supp, Route: MS, 05/24/2013 05/27/2013 Discontinued Drug form: SUPP, Daily, Dosing Weight 70, kg, PRN as needed for constipation, Start date: 05/24/13 12:05:00, Duration: 30 day, Stop date: 06/23/13 12:04:00(Same As: Dulcolax, Bisco-Lax) predniSONE 10 mg oral 30 mg=3 tab, PO, Daily, # 05/27/2013 Ordered tablet 90 tab, 3 Refill(s), called to pharmacy nystatin 100,000 units/mL 500,000 unit=5 mL, 05/27/2013 Ordered oral suspension S&SWALLOW, QID, # 300 mL, 0 Refill(s), called to pharmacy Zemplar 4 mcg oral 4 microgram, 4 cap, 05/26/2013 05/26/2013 Discontinued capsule Route: PO, Drug form: CAP, Q-M-W-F, Dosing Weight 70, kg, Start date: 05/26/13 9:00:00, Duration: 30 day, Stop date: 06/23/13 9:00:00(Same as: Zemplar) insulin glargine 100 20 unit=0.2 mL, SUB-Q, 05/27/2013 Ordered units/mL subcutaneous Daily, # 100 mL, 3 solution Refill(s), called to pharmacy MiraLax 17 gm, 1 pkt, Route: PO, 05/25/2013 05/26/2013 Discontinued Drug form: PWDR, Daily, Dosing Weight 70, kg, Start date: 05/25/13 9:00:00, Duration: 30 day, Stop date: 06/23/13 9:00:00Dissolve in 8 oz of water or juice.(Same as: Miralax) docusate sodium 100 mg 100 mg, 1 cap, Route: PO, 05/24/2013 05/27/2013 Discontinued oral capsule Drug form: CAP, BID, Dosing Weight 70, kg, Start date: 05/24/13 17:00:00, Duration: 30 day, Stop date: 06/23/13 9:00:00(Same as: Colace) (Do Not Crush) Insulin Aspart 100 5 unit=0.05 mL, SUB-Q, 05/27/2013 Ordered unit/ml - (Medium CD) Before Dinner, # 100 mL, 3 Refill(s), called to pharmacy CellCept 1,000 mg, 2 tab, Route: PO, Drug form: TAB, ONCE, Dosing Weight 70, kg, Start date: 05/23/13 16:08:00, Stop date: 05/23/13 16:08:00, 1 hour before or 2 hours after meals 05/23/2013 05/23/2013 Completed 1 hour before or 2 hours after mealsSEPARATE ANTACIDS from Cellcept by 2 hrs. (Same As: CellCept) Insulin Aspart 100 5 unit=0.05 mL, SUB-Q, 05/27/2013 Ordered unit/ml - (Medium CD) Before Lunch, # 100 mL, 3 Refill(s), called to pharmacy Insulin Aspart 100 5 unit=0.05 mL, SUB-Q, 05/27/2013 Ordered unit/ml - (Medium CD) Before Breakfast, # 100 mL, 3 Refill(s), called to pharmacy bupivacaine liposome 20 mL, Route: 05/23/2013 05/26/2013 Discontinued InFILtration(local), Drug Form: INJ, ONCALL, Start date: 05/23/13 20:00:00, Duration: 1 doses or times, Stop date: 05/24/13 0:00:00(Same as: Exparel) NOT FOR IV use Postoperative analgesia: Infiltration (local): Dose is based on surgical site and volume required to cover the area (in general, the maximum total dose is 266 mg).Bunionectomy: 7 mL into the tissues surrounding the osteotomy and 1 mL into the subcutaneous tissue of the surgical site (total dose=8 mL [106 mg])Hemorrhoidectomy: 30 mL (20 mL vial diluted with 10 mL NS) divided and administered as 6 injections of 5 mL each (total dose=30 mL [266 mg]) Pepcid 20 mg oral tablet 20 mg=1 tab, PO, Daily, # 05/27/2013 Ordered 30 tab, 3 Refill(s), called to pharmacy docusate sodium 100 mg 100 mg=1 cap, PO, BID, # 05/27/2013 Ordered oral capsule 60 cap, 0 Refill(s), called to pharmacy NS 1,000 mL 1,000 mL, Rate: 50 ml/hr, 05/23/2013 05/23/2013 Discontinued Infuse over: 20 hr, Route: IV, Dosing Weight 70 kg, Total Volume: 1,000, Start date: 05/23/13 9:16:00, Duration: 30 day, Stop date: 06/22/13 9:15:00 NS 1,000 mL 1,000 mL, Rate: 75 ml/hr, 05/24/2013 05/26/2013 Discontinued Infuse over: 13.3 hr, Route: IV, Dosing Weight 70 kg, Total Volume: 1,000, Start date: 05/24/13 12:03:00, Duration: 30 day, Stop date: 06/23/13 12:02:00 mycophenolate mofetil 1,000 mg, 2 tab, Route: 05/26/2013 05/27/2013 Discontinued PO, Drug form: TAB, [id number], Dosing Weight 70, kg, Start date: 05/26/13 20:00:00, Duration: 30 day, Stop date: 06/25/13 8:00:00SEPARATE ANTACIDS from Cellcept by 2 hrs.(Same As: CellCept) cholecalciferol 2000 intl 2,000 IntlUnit=1 cap, PO, 05/27/2013 Ordered units oral capsule Daily, # 30 cap, 3 Refill(s), called to pharmacy carvedilol 6.25 mg oral 6.25 mg=1 tab, PO, Q12H, 05/27/2013 Ordered tablet # 60 tab, 3 Refill(s), called to pharmacy amLODipine 10 mg, 1 tab, Route: PO, 05/26/2013 05/27/2013 Discontinued Drug form: TAB, Daily, Dosing Weight 70, kg, Start date: 05/26/13 9:00:00, Duration: 30 day, Stop date: 06/24/13 9:00:00(Same as: Norvasc) predniSONE 10 mg, 1 tab, Route: PO, 05/23/2013 05/23/2013 Deleted Drug form: TAB, ONCE, Start date: 05/23/13 20:00:00, Stop date: 05/23/13 20:00:00(Same as: PredniSONE) Take with food. [place] 10/325 oral tablet 1 tab, PO, Q6H, Pain 05/27/2013 Ordered Score 1-5, # 50 tab, 0 Refill(s), called to pharmacy Dulcolax Laxative 10 mg, 1 supp, Route: MS, 05/26/2013 05/26/2013 Completed Drug form: SUPP, ONCE, Dosing Weight 70, kg, Priority: NOW, Start date: 05/26/13 9:44:00, Stop date: 05/26/13 9:44:00(Same As: Dulcolax, Bisco-Lax) senna 8.6 mg oral tablet 8.6 mg, 1 tab, Route: PO, 05/26/2013 05/27/2013 Discontinued Drug Form: TAB, Dosing Weight 70, kg, BID, NOW, Start date: 05/26/13 9:44:00, Duration: 30 day, Stop date: 06/25/13 9:00:00(Same as: Adi) Epogen 10,000 unit, Route: IV, 05/27/2013 05/27/2013 Discontinued Drug form: INJ, ONCE, Dosing Weight 70, kg, For Oncology Patients, Start date: 05/27/13 7:33:00, Stop date: 05/27/13 7:33:00 HYDROmorphone 0.5mg/mL 15 mg, 30 mL, Route: IV, 05/23/2013 05/24/2013 Discontinued DIRECTOR STERILE PROCESSING (15mg/30 mL) 15 mg DIRECTOR STERILE PROCESSING Dose: 0.1mg, DIRECTOR STERILE PROCESSING Lockout: 12 minutes, 4 Hour Limit (In MG): 2, Drug Form: INJ, Continuous, Start date: 05/23/13 23:30:00, Duration: 30 day, Stop date: 06/22/13 23:29:00(Same as: Dilaudid) conc=0.5 mg/mlHydromorphone DIRECTOR STERILE PROCESSING Valcyte 450 mg, 1 tab, Route: PO, 05/23/2013 05/23/2013 Deleted Drug form: TAB, ONCE, Start date: 05/23/13 20:00:00, Stop date: 05/23/13 20:00:00(Same as: Valcyte)"Do Not Crush" Pepcid 20 mg, 1 tab, Route: PO, 05/23/2013 05/23/2013 Deleted Drug form: TAB, ONCE, Start date: 05/23/13 20:00:00, Stop date: 05/23/13 20:00:00(Same as: Pepcid) Pepcid 20 mg oral tablet 20 mg, 1 tab, Route: PO, 05/26/2013 05/27/2013 Discontinued Drug form: TAB, Daily, Dosing Weight 70, kg, Priority: NOW, Start date: 05/26/13 14:58:00, Duration: 30 day, Stop date: 06/25/13 9:00:00(Same as: Pepcid) cholecalciferol 2,000 IntlUnit, 2 tab, 05/27/2013 05/27/2013 Discontinued Route: PO, Drug form: TAB, Daily, Dosing Weight 70, kg, Start date: 05/27/13 9:00:00, Duration: 30 day, Stop date: 06/25/13 9:00:00Same as : Vitamin D3 Dilaudid 0.5 mg, 0.25 mL, Route: 05/23/2013 05/23/2013 Completed IV, Drug form: SOLN, ONCE, Dosing Weight 70, kg, Start date: 05/23/13 23:28:00, Stop date: 05/23/13 23:28:00Same as: Dilaudid tacrolimus 4 mg, 4 cap, Route: PO, 05/27/2013 05/27/2013 Discontinued Drug form: CAP, [id number], Dosing Weight 70, kg, Start date: 05/27/13 20:00:00, Duration: 30 day, Stop date: 06/26/13 8:00:00Avoid grapefruit and grapefruit juice.(Same As: Prograf) valganciclovir 450 mg 450 mg=1 tab, PO, 05/27/2013 Ordered oral tablet [id number], # 30 tab, 3 Refill(s), called to pharmacy tacrolimus 1 mg oral 4 mg=4 cap, PO, [id number], 05/27/2013 Ordered capsule # 240 cap, 3 Refill(s), called to pharmacy sulfamethoxazole-trimetho 1 tab, PO, [id number], # 30 05/27/2013 Ordered prim 400 mg-80 mg oral tab, 3 Refill(s), called tablet to pharmacy insulin isophane-NPH 10 unit, 0.1 mL, Route: 05/25/2013 05/25/2013 Completed SUB-Q, Drug form: INJ, ONCE, Dosing Weight 70, kg, Start date: 05/25/13 18:00:00, Stop date: 05/25/13 18:00:00Roll in palms of hands gently; Do not shake vigorously. (Same as: Humulin N)(Restricted to patients requiring a dose > 60 units) Stable for 28 days at room temperatureExpires in days from Date insulin isophane-NPH 20 unit, 0.2 mL, Route: 05/26/2013 05/26/2013 Discontinued SUB-Q, Drug form: INJ, Before Breakfast, Dosing Weight 70, kg, Start date: 05/26/13 7:30:00, Duration: 30 day, Stop date: 06/24/13 7:30:00Roll in palms of hands gently; Do not shake vigorously. (Same as: Humulin N)(Restricted to patients requiring a dose > 60 units) Stable for 28 days at room temperatureExpires in days from Date Prograf 3 mg, 3 cap, Route: PO, 05/23/2013 05/23/2013 Completed Drug form: CAP, ONCE, Dosing Weight 70, kg, Start date: 05/23/13 8:38:00, Stop date: 05/23/13 8:38:00Avoid grapefruit and grapefruit juice.(Same As: Prograf) Sodium Chloride 0.45% IV 1,000 mL, Rate: 100 05/23/2013 05/24/2013 Discontinued 1,000 mL ml/hr, Infuse over: 10 hr, Route: IV, Dosing Weight 70 kg, Total Volume: 1,000, Start date: 05/23/13 22:53:00, Duration: 30 day, Stop date: 06/22/13 22:52:00 Sodium Chloride 0.9% 250 mL, 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 05/22/2013 05/26/2013 Discontinued (titrate) 250 mL use with blood product administration, Dosing Weight 74.318, kg, Route: IV, Total Volume: 250, Start Date: 05/22/13 9:13:00, Duration: 30 day, Stop date: 06/21/13 9:12:00, Replace Every: 24 hr Saline Flush 0.9% 5 ml, Route: IVP, Drug 05/22/2013 05/26/2013 Discontinued Form: INJ, Dosing Weight 74.318, kg, PRN, PRN Line Flush, Start date: 05/22/13 9:13:00, Duration: 30 day, Stop date: 06/21/13 9:12:00(Same as: BD Posiflush) Saline Flush 0.9% 5 ml, Route: IVP, Drug 05/22/2013 05/26/2013 Discontinued Form: INJ, Dosing Weight 74.318, kg, Q12H, Start date: 05/22/13 21:00:00, Duration: 30 day, Stop date: 06/21/13 9:00:00(Same as: BD Posiflush) Saline Flush 0.9% 5 ml, Route: IVP, Drug 05/22/2013 05/26/2013 Discontinued Form: INJ, Dosing Weight 74.318, kg, PRN, PRN Line Flush, Start date: 05/22/13 9:13:00, Duration: 30 day, Stop date: 06/21/13 9:12:00(Same as: BD Posiflush) methylPREDNISolone SODium 500 mg, Route: IVPB, 05/22/2013 05/23/2013 Completed SUCCinate + Sodium ONCALL, Dosing Weight Chloride 0.9% IV 100 mL 74.318, kg, to OR, Start date: 05/22/13 10:00:00, Duration: 30 day, Stop date: 06/21/13 9:59:00(Same as:Solu-Medrol, A-Methapred) basiliximab + Sodium 20 mg, 5 mL, Route: IVPB, 05/26/2013 05/26/2013 Completed Chloride 0.9% IV 50 mL ONCALL, Dosing Weight 74.318, kg, to OR, Start date: 05/26/13 10:00:00, Duration: 30 day, Stop date: 06/25/13 9:59:00Simulect. Do not send via pneumatic tube system. (Same As: Simulect) mycophenolate mofetil 1,000 mg, 2 tab, Route: 05/22/2013 05/23/2013 Deleted PO, Drug form: TAB, ONCE, Dosing Weight 74.318, kg, Start date: 05/22/13 9:13:00, Stop date: 05/22/13 9:13:00SEPARATE ANTACIDS from [employer] by 2 hrs.(Same As: CellCept) valganciclovir 450 mg, 1 tab, Route: PO, 05/25/2013 05/27/2013 Discontinued Drug form: TAB, [id number], Dosing Weight 70, kg, Start date: 05/25/13 16:00:00, Duration: 30 day, Stop date: 06/23/13 8:00:00(Same as: Valcyte)"Do Not Crush" sulfamethoxazole-trimetho 1 tab, Route: PO, Drug 05/25/2013 05/27/2013 Discontinued prim 400 mg-80 mg oral Form: TAB, Dosing Weight tablet 70, kg, [id number], Start date: 05/25/13 16:00:00, Duration: 30 day, Stop date: 06/23/13 8:00:00On empty stomach with a glass of water. 1 hr before meals (Same As: Bactrim, Septra) nystatin 100,000 units/mL 500,000 unit, 5 mL, 05/25/2013 05/27/2013 Discontinued oral suspension Route: S&SWALLOW, Drug form: SUSP, QID, Dosing Weight 70, kg, Start date: 05/25/13 17:00:00, Duration: 30 day, Stop date: 06/24/13 13:00:00(Same as:Mycostatin) Shake well. 1/2 NS 1,000 mL 1,000 mL, Rate: 125 05/23/2013 05/24/2013 Discontinued ml/hr, Infuse over: 8 hr, Route: IV, Dosing Weight 70 kg, Total Volume: 1,000, Start date: 05/23/13 22:52:00, Duration: 30 day, Stop date: 06/22/13 22:51:00 labetalol 10 mg, 2 mL, Route: IVP, 05/25/2013 05/26/2013 Discontinued Drug form: INJ, Q4H, Dosing Weight 70, kg, PRN Hypertension, Start date: 05/25/13 16:44:00, Duration: 3 doses or times, Stop date: Limited # of times bisacodyl 10 mg, 2 tab, Route: PO, 05/27/2013 05/27/2013 Completed Drug form: ECTAB, ONCE, Dosing Weight 70, kg, Priority: NOW, Start date: 05/27/13 9:01:00, Stop date: 05/27/13 9:01:00(Same As: Dulcolax, Correctol) (Do Not Crush) "Do Not Crush" Zocor 20 mg, 1 tab, Route: PO, 05/26/2013 05/27/2013 Discontinued Drug form: TAB, Bedtime, Dosing Weight 70, kg, Start date: 05/26/13 21:00:00, Duration: 30 day, Stop date: 06/24/13 21:00:00(Same as: Zocor) hydrALAZINE 10 mg, 0.5 mL, Route: IV, 05/27/2013 05/27/2013 Completed Drug form: INJ, ONCE, Dosing Weight 70, kg, Priority: NOW, Start date: 05/27/13 0:21:00, Stop date: 05/27/13 0:21:00(Same as: Apresoline)Push over 5 minutes nystatin 1 MilUnit, 10 mL, Route: 05/23/2013 05/23/2013 Deleted PO, Drug form: SUSP, ONCE, Start date: 05/23/13 20:00:00, Stop date: 05/23/13 20:00:00(Same as:Mycostatin) Shake well before use. sulfamethoxazole-trimetho 1 tab, Route: PO, Drug 05/23/2013 05/23/2013 Deleted prim 400 mg-80 mg oral Form: TAB, ONCE, Start tablet date: 05/23/13 20:00:00, Stop date: 05/23/13 20:00:00On empty stomach with a glass of water. 1 hr before meals (Same As: Bactrim, Septra) CellCept 250 mg, 1 cap, Route: PO, 05/23/2013 05/23/2013 Deleted Drug form: CAP, ONCE, Start date: 05/23/13 21:00:00, Stop date: 05/23/13 21:00:00SEPARATE ANTACIDS from Cellcept by 2 hrs.(Same As: CellCept) heparin 5,000 unit, 1 mL, Route: 05/24/2013 05/27/2013 Discontinued SUB-Q, Drug form: INJ, Q8H-05, Dosing Weight 70, kg, Priority: NOW, Start date: 05/24/13 12:07:00, Duration: 30 day, Stop date: 06/23/13 5:00:00porcine heparin morphine Sulfate 2 mg, 1 mL, Route: IVP, 05/24/2013 05/26/2013 Discontinued Drug form: INJ, Q2H, Dosing Weight 70, kg, PRN Breakthrough Pain, Start date: 05/24/13 12:07:00, Duration: 30 day, Stop date: 06/23/13 12:06:00(Same as:MORPhine Sulfate) [place] 10/325 oral tablet 1 tab, Route: PO, Drug 05/24/2013 05/27/2013 Discontinued Form: TAB, Dosing Weight 70, kg, Q4H, PRN Pain Score 1-5, Start date: 05/24/13 12:07:00, Duration: 30 day, Stop date: 06/23/13 12:06:00Do not exceed 4gm/day of acetaminophen. (Same as: [place] 325/10) [place] 10/325 oral tablet 2 tab, Route: PO, Drug 05/24/2013 05/26/2013 Discontinued Form: TAB, Dosing Weight 70, kg, Q4H, PRN Pain Score 6-10, Start date: 05/24/13 12:07:00, Duration: 30 day, Stop date: 06/23/13 12:06:00Do not exceed 4gm/day of acetaminophen. (Same as: [place] 325/10) Simulect + Sodium 20 mg, 5 mL, Route: IVPB, 05/26/2013 05/26/2013 Completed Chloride 0.9% IV 50 mL ONCE, Dosing Weight 70, kg, Start date: 05/26/13 10:00:00, Stop date: 05/26/13 10:00:00Simulect. Do not send via pneumatic tube system. (Same As: Simulect) bisacodyl 10 mg, 1 supp, Route: MS, 05/25/2013 05/25/2013 Completed Drug form: SUPP, ONCE, Dosing Weight 70, kg, Start date: 05/25/13 16:44:00, Stop date: 05/25/13 16:44:00(Same As: Dulcolax, Bisco-Lax) Procrit 10,000 unit, 1 mL, Route: 05/26/2013 05/26/2013 Completed SUB-Q, Drug form: INJ, ONCE, Start date: 05/26/13 19:00:00, Stop date: 05/26/13 19:00:00(Same as: Procrit) epoetin jyotsna 10,000 unit/1 ml VL Prograf 1 mg, 1 cap, Route: PO, 05/23/2013 05/23/2013 Deleted Drug form: CAP, ONCE, Start date: 05/23/13 20:00:00, Stop date: 05/23/13 20:00:00Avoid grapefruit and grapefruit juice.(Same As: Prograf) Saline Flush 0.9% 5 ml, Route: IVP, Drug 05/23/2013 05/27/2013 Discontinued Form: INJ, Dosing Weight 70, kg, PRN, PRN Line Flush, Start date: 05/23/13 23:22:00, Duration: 30 day, Stop date: 06/22/13 23:21:00(Same as: BD Posiflush) Saline Flush 0.9% 5 ml, Route: IVP, Drug 05/24/2013 05/27/2013 Discontinued Form: INJ, Dosing Weight 70, kg, Q12H, Start date: 05/24/13 9:00:00, Duration: 30 day, Stop date: 06/22/13 21:00:00(Same as: BD Posiflush) ondansetron 4 mg, 2 mL, Route: IVP, 05/23/2013 05/27/2013 Discontinued Drug form: INJ, Q8H, Dosing Weight 70, kg, PRN Nausea & Vomiting, Start date: 05/23/13 23:22:00, Duration: 30 day, Stop date: 06/22/13 23:21:00(Same as: Zofran) pravastatin 40 mg, 2 tab, Route: PO, 05/26/2013 05/27/2013 Discontinued Drug form: TAB, Bedtime, Dosing Weight 70, kg, Start date: 05/26/13 21:00:00, Duration: 30 day, Stop date: 06/24/13 21:00:00(Same as: Pravachol) Coreg 6.25 mg, 1 tab, Route: 05/27/2013 05/27/2013 Discontinued PO, Drug form: TAB, Q12H, Dosing Weight 70, kg, Start date: 05/27/13 9:00:00, Duration: 30 day, Stop date: 06/25/13 21:00:00Give with food. (Same As: Coreg) Phenergan 12.5 mg, 0.5 mL, Route: 05/24/2013 05/26/2013 Discontinued IVPB, Drug form: INJ, Q4H, Dosing Weight 70, kg, PRN Nausea & Vomiting, Start date: 05/24/13 9:48:00, Duration: 30 day, Stop date: 06/23/13 9:47:00Do not give IV push. (Same as: Phenergan) Lyrica 50 mg, 1 cap, Route: PO, 05/22/2013 05/27/2013 Discontinued Drug form: CAP, Bedtime, Dosing Weight 70, kg, Start date: 05/22/13 21:00:00, Duration: 30 day, Stop date: 06/20/13 21:00:00Same as Lyrica insulin aspart 20 unit, 0.2 mL, Route: 05/25/2013 05/25/2013 Completed SUB-Q, Drug form: SOLN, ONCE, Dosing Weight 70, kg, Start date: 05/25/13 0:12:00, Stop date: 05/25/13 0:12:00Roll in palms of hands gently; Do not shake vigorously. (Same as: NovoLog)"single patient use only" Stable for 28 days at room temperature.Expires in days from Date insulin isophane-NPH 10 unit, 0.1 mL, Route: 05/24/2013 05/25/2013 Discontinued SUB-Q, Drug form: INJ, Before Breakfast, Dosing Weight 70, kg, Priority: STAT, Start date: 05/24/13 9:45:00, Duration: 30 day, Stop date: 06/23/13 7:30:00Roll in palms of hands gently; Do not shake vigorously. (Same as: Humulin N)(Restricted to patients requiring a dose > 60 units) Stable for 28 days at room temperatureExpires in days from Date magnesium sulfate 2 gm, Route: IVPB, Drug 05/23/2013 05/23/2013 Completed form: INJ, ONCE, Dosing Weight 70, kg, Total dose=2 gm, Start date: 05/23/13 11:25:00, Duration: 1 doses or times, Stop date: 05/23/13 11:25:00 Vital Signs Most recent to oldest 1 2 3 [Reference Range]: Height 162.56 cm (05/22/2013 13:34:00) Current Weight 69.007 kg 53.6 kg 68.2 kg (05/27/2013 05:12:00) (05/26/2013 04:56:00) (05/24/2013 04:23:00) Temperature Oral 97.1 DegF 98.0 DegF 98.0 DegF [96.4-99.1 DegF] (05/27/2013 15:36:00) (05/27/2013 11:28:00) (05/27/2013 09: 05:00) Systolic Blood Pressure 143 mmHg 167 mmHg 147 mmHg [90-140 mmHg] *HI* *HI* *HI* (05/27/2013 15:36:00) (05/27/2013 11:28:00) (05/27/2013 09:05:00) Diastolic Blood Pressure 76 mmHg 85 mmHg 78 mmHg [60-90 mmHg] (05/27/2013 15:36:00) (05/27/2013 11:28:00) (05/27/2013 09:05: 00) Respiratory Rate [14-20 18 BRMIN 18 BRMIN 18 BRMIN BRMIN] (05/27/2013 15:47:00) (05/27/2013 15:36:00) (05/27/2013 11:28:00) Peripheral Pulse Rate 86 bpm 81 bpm 69 bpm [60-100 bpm] (05/27/2013 15:36:00) (05/27/2013 11:28:00) (05/27/2013 09:05: 00) Weight 70 kg (05/22/2013 13:34:00) Results BACTERIAL - SEROLOGY Most recent to oldest [Reference Range]: 1 2 3 MRSA by PCR Negative 1 (05/22/2013 13:48:03) 1Interpretive Data: Interpretive Data: The [facility] [...] by the [facility] within the [facility]. The [facility] is authorized under the Clinical Laboratory Improvement Amendment of 1988 (CLIA-88) to performhigh complexity testing.BEDSIDE GLUCOSE TESTING Most recent to oldest 1 2 3 [Reference Range]: Glucose POC [70-99 mg/dL] 171 mg/dL 2 100 mg/dL 3 161 mg/dL 4 *HI* *HI* *HI* (05/27/2013 15:47:00) (05/27/2013 12:03:00) (05/27/2013 07:32:00) Gluc POC Comment 1 Notify RN/MD Notify RN/MD Notify RN/MD *NA* *NA* *NA* (05/27/2013 07:32:00) (05/26/2013 16:00:00) (05/26/2013 11:27:00) 2Interpretive Data: Upper Reportable Limit: 200 mg/dL.3Interpretive Data: Upper Reportable Limit: 200 mg/dL.4Interpretive Data: Upper Reportable Limit: 200 mg/dL.URINALYSIS Most recent to oldest [Reference Range]: 1 2 3 UA Turbidity [Clear] Clear (05/22/2013 17:51:00) UA Color [Yellow] Light Yellow *NA* (05/22/2013 17:51:00) UA pH [5.0-8.0] 8.5 *HI* (05/22/2013 17:51:00) UA Spec Grav [<=1.030] 1.004 (05/22/2013 17:51:00) UA Glucose [Negative mg/dL] 200 mg/dL *ABN* (05/22/2013 17:51:00) UA Blood [Negative] Trace *ABN* (05/22/2013 17:51:00) UA Ketones [Negative mg/dL] Negative mg/dL *NA* (05/22/2013 17:51:00) UA Protein [Negative mg/dL] 200 mg/dL *ABN* (05/22/2013 17:51:00) UA Urobilinogen [0.1-1.0 mg/dL] <=1.0 mg/dL *NA* (05/22/2013 17:51:00) UA Bili [Negative] Negative *NA* (05/22/2013 17:51:00) UA Leuk Est [Negative] Negative (05/22/2013 17:51:00) UA Nitrite [Negative] Negative (05/22/2013 17:51:00) UA RBC [0-2 /HPF] <1 /HPF (05/22/2013 17:51:00) UA Sq Epi [Few /LPF] Few /LPF *NA* (05/22/2013 17:51:00) BLOOD BANK RESULTS Most recent to oldest [Reference Range]: 1 2 3 ABO/Rh O POS *Unknown* (05/22/2013 13:45:00) Antibody Scrn Negative (05/22/2013 13:45:00) CHEMISTRY Most recent to oldest 1 2 3 [Reference Range]: Sodium Lvl [135-145 139 mEq/L 139 mEq/L 136 mEq/L mEq/L] (05/27/2013 05:06:36) (05/26/2013 05:06:00) (05/25/2013 05:44:00) Potassium Lvl [3.5-5.1 4.6 mEq/L 4.1 mEq/L 4.3 mEq/L mEq/L] (05/27/2013 05:06:36) (05/26/2013 05:06:00) (05/25/2013 05:44:00) Chloride Lvl [95-109 111 mEq/L 107 mEq/L 102 mEq/L mEq/L] *HI* (05/26/2013 05:06:00) (05/25/2013 05:44:00) (05/27/2013 05:06:36) CO2 [24-32 mEq/L] 17 mEq/L 21 mEq/L 25 mEq/L *LOW* *LOW* (05/25/2013 05:44:00) (05/27/2013 05:06:36) (05/26/2013 05:06:00) AGAP [10.0-20.0 mEq/L] 15.6 mEq/L 15.1 mEq/L 13.3 mEq/L (05/27/2013 05:06:36) (05/26/2013 05:06:00) (05/25/2013 05:44:00) Creatinine Lvl [0.5-1.4 1.5 mg/dL 1.7 mg/dL 2.0 mg/dL mg/dL] *HI* *HI* *HI* (05/27/2013 05:06:36) (05/26/2013 05:06:00) (05/25/2013 05:44:00) eGFR 41 mL/min/1.73m2 5 35 mL/min/1.73m2 6 29 mL/min/1.73m2 7 *NA* *NA* *NA* (05/27/2013 05:06:36) (05/26/2013 05:06:00) (05/25/2013 05:44:00) BUN [7-22 mg/dL] 43 mg/dL 39 mg/dL 27 mg/dL *HI* *HI* *HI* (05/27/2013 05:06:36) (05/26/2013 05:06:00) (05/25/2013 05:44:00) Glucose Lvl [70-99 mg/dL] 148 mg/dL 8 123 mg/dL 9 105 mg/dL 10 *HI* *HI* *HI* (05/27/2013 05:06:36) (05/26/2013 05:06:00) (05/25/2013 05:44:00) Total Protein [6.4-8.4 8.1 g/dL g/dL] (05/22/2013 13:48:12) Albumin Lvl [3.5-5.0 4.2 g/dL g/dL] (05/22/2013 13:48:12) Globulin [2.0-4.0 g/dL] 3.9 g/dL (05/22/2013 13:48:12) A/G Ratio [0.7-1.6] 1.1 (05/22/2013 13:48:12) Calcium Lvl [8.5-10.5 9.4 mg/dL 9.1 mg/dL 9.1 mg/dL mg/dL] (05/27/2013 05:06:36) (05/26/2013 05:06:00) (05/26/2013 05:06:00) Phosphorus [2.5-4.5 1.9 mg/dL 2.8 mg/dL 4.3 mg/dL mg/dL] *LOW* (05/26/2013 05:06:00) (05/25/2013 05:44:00) (05/27/2013 05:06:36) Magnesium Lvl [1.8-2.4 1.9 mg/dL 2.2 mg/dL 2.0 mg/dL mg/dL] (05/27/2013 05:06:36) (05/26/2013 05:06:00) (05/25/2013 05:44:00) ALT [0-65 unit/L] 34 unit/L (05/22/2013 13:48:12) AST [0-37 unit/L] 51 unit/L *HI* (05/22/2013 13:48:12) GGT [5-85 unit/L] 16 unit/L (05/22/2013 13:48:54) Alk Phos [39-136 unit/L] 91 unit/L (05/22/2013 13:48:12) Bili Total [0.2-1.3 0.5 mg/dL mg/dL] (05/22/2013 13:48:54) Bili Direct [0.0-0.3 0.1 mg/dL mg/dL] (05/22/2013 13:48:54) Bili Indirect [0.0-1.0 0.4 mg/dL mg/dL] (05/22/2013 13:48:54) Vitamin D, 25-OH, Total <13 ng/mL 11 [30-100 ng/mL] *LOW* (05/23/2013 05:38:00) CHD Risk [3.90-5.80] 3.00 *LOW* (05/22/2013 13:48:54) Chol [<=199 mg/dL] 159 mg/dL (05/22/2013 13:48:54) Trig [<=149 mg/dL] 180 mg/dL *HI* (05/22/2013 13:48:54) HDL [>=61 mg/dL] 53 mg/dL *LOW* (05/22/2013 13:48:54) LDL (Calculated) [<=99 70 mg/dL mg/dL] (05/22/2013 13:48:54) Hgb A1C [<=5.6 %] 5.1 % (05/22/2013 13:48:54) Iron [30-160 ug/dl] 89 ug/dl (05/23/2013 05:38:00) Ferritin Lvl [5-204 1259 ng/mL ng/mL] *HI* (05/23/2013 05:38:00) % Satur Fe [12-57 %] 32 % (05/23/2013 05:38:00) UIBC [110-370 ug/dl] 188 ug/dl (05/23/2013 05:38:00) TIBC [228-428 ug/dl] 277 ug/dl (05/23/2013 05:38:00) Ca Ion WB [1.05-1.25 1.06 mMol/L 1.09 mMol/L 1.00 mMol/L mMol/L] (05/23/2013 23:42:10) (05/23/2013 09:00:00) *LOW* (05/23/2013 05:38:00) Ca Norm WB [1.05-1.25 1.05 mMol/L 1.12 mMol/L 1.04 mMol/L mMol/L] (05/23/2013 23:42:10) (05/23/2013 09:00:00) *LOW* (05/23/2013 05:38:00) PTH Intact [11.1-79.5 1435.2 pg/mL pg/mL] *HI* (05/23/2013 05:38:00) Tacrolimus Lvl [5.0-15.0 5.8 ng/mL 8.0 ng/mL 10.2 ng/mL ng/mL] (05/27/2013 05:06:00) (05/26/2013 05:06:19) (05/25/2013 05:44:00) Immune Cell Func 305 12 *NA* (05/22/2013 13:48:23) S Preg [Negative] Negative *NA* (05/22/2013 13:48:54) U Creatinine 30.2 mg/dL 13 *NA* (05/22/2013 17:51:00) U Protein 149.2 mg/dL 14 *NA* (05/22/2013 17:51:00) U Prot/Creat 4.9 *NA* (05/22/2013 17:51:00) U Preg [Negative] Negative (05/22/2013 17:51:00) POC A Hct [36.0-48.0] See Note See Note (05/25/2013 10:45:00) (05/25/2013 09:40:00) POC A Hct [36.0-48.0 %] 28.0 % *LOW* (05/23/2013 21:56:00) POC A Ca Ion [1.05-1.25] See Note See Note (05/25/2013 10:45:00) (05/25/2013 09:40:00) POC A Ca Ion [1.05-1.25 1.02 mMol/L mMol/L] *LOW* (05/23/2013 21:56:00) POC A K [3.5-5.1] See Note See Note (05/25/2013 10:45:00) (05/25/2013 09:40:00) POC A K [3.5-5.1 mEq/L] 4.0 mEq/L (05/23/2013 21:56:00) POC A Source ART ART ART *NA* *NA* *NA* (05/25/2013 10:45:00) (05/25/2013 09:40:00) (05/23/2013 21:56:00) POC A Temp 37.0 DegC 37.0 DegC 37.0 DegC *NA* *NA* *NA* (05/25/2013 10:45:00) (05/25/2013 09:40:00) (05/23/2013 21:56:00) POC A pH [7.35-7.45] See Note 15 See Note 16 7.42 (05/25/2013 10:45:00) (05/25/2013 09:40:00) (05/23/2013 21:56:00) POC A PCO2 [35-45] See Note See Note (05/25/2013 10:45:00) (05/25/2013 09:40:00) POC A PCO2 [35-45 mmHg] 37 mmHg (05/23/2013 21:56:00) POC A PO2 [80-100] See Note See Note (05/25/2013 10:45:00) (05/25/2013 09:40:00) POC A PO2 [80-100 mmHg] 206 mmHg *HI* (05/23/2013 21:56:00) POC A HCO3 [22-26] See Note See Note (05/25/2013 10:45:00) (05/25/2013 09:40:00) POC A HCO3 [22-26 mMol/L] 24 mMol/L (05/23/2013 21:56:00) POC A BE [-2-2] See Note See Note (05/25/2013 10:45:00) (05/25/2013 09:40:00) POC A BE [-2-2 mMol/L] 0 mMol/L (05/23/2013 21:56:00) POC A O2 Sat [95.0-100.0] See Note See Note (05/25/2013 10:45:00) (05/25/2013 09:40:00) POC A O2 Sat [95.0-100.0 100.0 % %] (05/23/2013 21:56:00) POC A Glu [70-99] See Note See Note (05/25/2013 10:45:00) (05/25/2013 09:40:00) POC A Glu [70-99 mg/dL] 198 mg/dL *HI* (05/23/2013:56:00) POC A LA [0.5-2.2] See Note See Note (05/25/2013 10:45:00) (05/25/2013 09:40:00) POC A LA [0.5-2.2 mMol/L] 0.9 mMol/L (05/23/2013 21:56:00) POC A Na [135-145] See Note See Note (05/25/2013 10:45:00) (05/25/2013 09:40:00) POC A Na [135-145 mEq/L] 134 mEq/L *LOW* (05/23/2013 21:56:00) 5Result Comment: The eGFR is calculated using [...] values reflect the clinical guidelines of the [place] [employer].9Interpretive Data: Adult reference range values reflect the clinical guidelines of the [place] [employer].10Interpretive Data: Adult reference range values reflect the clinical guidelines of the [place] [employer].11Interpretive Data: Reference range is based on recommendations in the Endocrine Society Clinical Practice Guideline (J Clin Endocrinol Metab 2011;96:4890-3651)12Result Comment: Reference Range < ag=055 Low immune cell response 226-524 Moderate immune cell response > mi=125 High immune cell response Test Performed at: [facility] [address] [id number] TIKI DUARTE M.D.13Interpretive Data: No established reference ranges.14Interpretive Data: No established reference ranges.15Result Comment: Mislabeled patient result- [id number] Comment: mislabled - patient creditedHEMATOLOGY Most recent to oldest 1 2 3 [Reference Range]: WBC [3.7-10.4 K/CMM] 7.4 K/CMM 11.2 K/CMM 18.4 K/CMM (05/27/2013 05:06:36) *HI* *HI* (05/26/2013 05:06:00) (05/25/2013 05:44:00) RBC [4.20-5.40 M/CMM] 3.13 M/CMM 3.00 M/CMM 3.47 M/CMM *LOW* *LOW* *LOW* (05/27/2013 05:06:36) (05/26/2013 05:06:00) (05/25/2013 05:44:00) Hgb [12.0-16.0 g/dL] 9.7 g/dL 9.1 g/dL 10.3 g/dL *LOW* *LOW* *LOW* (05/27/2013 05:06:36) (05/26/2013 05:06:00) (05/25/2013 05:44:00) Hct [36.0-48.0 %] 27.7 % 26.7 % 30.3 % *LOW* *LOW* *LOW* (05/27/2013 05:06:36) (05/26/2013 05:06:00) (05/25/2013 05:44:00) MCV [81.0-99.0 fL] 88.4 fL 88.8 fL 87.4 fL (05/27/2013 05:06:36) (05/26/2013 05:06:00) (05/25/2013 05:44:00) MCH [27.0-31.0 pg] 30.9 pg 30.4 pg 29.7 pg (05/27/2013 05:06:36) (05/26/2013 05:06:00) (05/25/2013 05:44:00) MCHC [32.0-36.0 g/dL] 35.0 g/dL 34.3 g/dL 34.0 g/dL (05/27/2013 05:06:36) (05/26/2013 05:06:00) (05/25/2013 05:44:00) RDW [11.5-14.5 %] 14.2 % 14.0 % 14.0 % (05/27/2013 05:06:36) (05/26/2013 05:06:00) (05/25/2013 05:44:00) Platelet [133-450 K/CMM] 117 K/CMM 126 K/CMM 166 K/CMM *LOW* *LOW* (05/25/2013 05:44:00) (05/27/2013 05:06:36) (05/26/2013 05:06:00) MPV [7.4-10.4 fL] 10.1 fL 9.6 fL 9.6 fL (05/27/2013 05:06:36) (05/26/2013 05:06:00) (05/25/2013 05:44:00) Segs [45.0-75.0 %] 84.5 % 86.6 % 91.5 % *HI* *HI* *HI* (05/27/2013 05:06:36) (05/26/2013 05:06:00) (05/25/2013 05:44:00) Lymphocytes [20.0-40.0 %] 7.0 % 5.3 % 1.9 % *LOW* *LOW* *LOW* (05/27/2013 05:06:36) (05/26/2013 05:06:00) (05/25/2013 05:44:00) Monocytes [2.0-12.0 %] 8.3 % 7.9 % 6.6 % (05/27/2013 05:06:36) (05/26/2013 05:06:00) (05/25/2013 05:44:00) Eosinophils [0.0-4.0 %] 0.1 % 0.1 % 0.1 % (05/27/2013 05:06:36) (05/26/2013 05:06:00) (05/23/2013 23:42:12) Basophils [0.0-1.0 %] 0.1 % 0.1 % 0.1 % (05/27/2013 05:06:36) (05/26/2013 05:06:00) (05/24/2013 02:11:55) Segs-Bands # [1.5-8.1 6.3 K/CMM 9.7 K/CMM 16.9 K/CMM K/CMM] (05/27/2013 05:06:36) *HI* *HI* (05/26/2013 05:06:00) (05/25/2013 05:44:00) Lymphocytes # [1.0-5.5 0.5 K/CMM 0.6 K/CMM 0.4 K/CMM K/CMM] *LOW* *LOW* *LOW* (05/27/2013 05:06:36) (05/26/2013 05:06:00) (05/25/2013 05:44:00) Monocytes # [0.0-0.8 K/CMM] 0.6 K/CMM 0.9 K/CMM 1.2 K/CMM (05/27/2013 05:06:36) *HI* *HI* (05/26/2013 05:06:00) (05/25/2013 05:44:00) Eosinophils # [0.0-0.5 0.3 K/CMM 0.3 K/CMM K/CMM] (05/23/2013 05:38:00) (05/22/2013 13:48:54) PT [12.0-14.7 seconds] 12.8 seconds (05/23/2013 05:38:00) INR [0.85-1.17] 0.97 17 (05/23/2013 05:38:00) PTT [22.9-35.8 seconds] 30.4 seconds 18 (05/23/2013 05:38:00) 17Interpretive Data: RECOMMENDED RANGES FOR PROTIME INR: 2.0-3.0 for most medical and surgical thromboembolic states. 2.5-3.5 for artificial heart valves and recurrent embolism. INR SHOULD BE USED ONLY FOR PATIENTS ON STABLE ANTICOAGULANT THERAPY.18Interpretive Data: Heparin Therapeutic Range: 57 - 92 SecondsIMMUNOLOGY Most recent to oldest [Reference Range]: 1 2 3 CMV IgG [Non Reactive] Reactive *ABN* (05/22/2013 13:48:34) HIV 1/2 Ab [Negative] Negative *NA* (05/22/2013 13:48:54) Hep Bs Ag [Negative] Negative *NA* (05/22/2013 13:48:54) Hep B Core IgM [Negative] Negative *NA* (05/23/2013 03:21:00) Hep Bs Ab [<=7.4 mIU/mL] 17.7 mIU/mL 19 *HI* (05/23/2013 03:21:00) Hep B Core Ab [Negative] Negative *NA* (05/23/2013 03:21:00) Hep C Ab [Negative] Negative *NA* (05/23/2013 03:21:00) 19Interpretive Data: <=7.4 mIU/mL--------Negative for Anti-HBs. Not immune to HBV infection. 7.5-12.4 mIU/mL--Borderline for Anti-HBs and immune status should be further assessed by considering other factors such as clinical status follow-up testing, associated risk factors, and the use of additional diagnostic information. >12.4 mIU/mL-------Positive for Anti-HBs. Immune to HBV infection Microbiology Reports PROCEDURE:Culture: Urine STATUS: Auth (Verified) BODY SITE: COLLECTED DATE/TIME: 05/23/2013 18:00:00 SOURCE: U Bladder FREE TEXT SOURCE: FINAL REPORTS Final ReportNo GrowthPRELIMINARY REPORTS Preliminary ReportNo Growth; Holding PROCEDURE:Culture: Resistant Acinetobacter Screen STATUS: Auth (Verified) BODY SITE: COLLECTED DATE/TIME: 05/22/2013 14:00:00 SOURCE: Nasopharynx FREE TEXT SOURCE: FINAL REPORTS Final ReportNo Acinetobacter IsolatedPRELIMINARY REPORTS Preliminary ReportCulture In Progress
--- OUTSIDE RECORDS SUMMARY | 2018-08-01 03:14 | XMS REPORT | Summary of Care ---
:1965 Author Encounter [facility] July_rikki(LEANA) [id number] Date(s): 09/21/14 - 10/20/[address] Discharge Disposition: Home Physician Attending: Shanae Toussaint MD Physician_Referring: Shanae Toussaint MD Vital Signs No data available for this section Problem List Condition Effective Dates Status Health [...] Reaction Severity Status NKDA Active Medications Levemir FlexTouch 100 units/mL subcutaneous solution 26 units qAM and 42 units qPM, SUB-Q, BID, # 7 pen(s), 2 Refill(s), called to pharmacy Start Date: 09/22/14 Status: Ordered Results No data available for this section Immunizations No data available for this section Procedures Procedure Date Related Diagnosis Body Site Kidney transplantation 05/23/13 Creation of upper limb arteriovenous fistula Renal biopsy Social History Social History Type Response Substance [...] No. Household alcohol concerns: No. Smoking Status Never smoker; Started at age: 1.0; Stopped at age: 1; Exposure to Tobacco Smoke None; Cigarette Smoking Last 365 Days No; Reg Smoking Cessation Counseling No Assessment and Plan No data available for this section
--- OUTSIDE RECORDS SUMMARY | 2018-08-01 03:14 | XMS REPORT | Summary of Care ---
:1965 Author Organization [facility] Address [address] [place] [id number] Encounter [facility] July_rikki(FIN) [id number] Date(s): 12/09/14 - 01/07/15 [facility] [address] [place] [address] [address] [place] [address] Discharge Disposition: Home Attending Physician: Shanae Toussaint MD Referring Physician: Shanae Toussaint MD Vital Signs No data [...] 1 HLA Misc Test See Report 1 (12/09/14 3:55 PM) Test Name HLA TYPING *Unknown* (12/09/14 3:55 PM) 1Result Comment: Reference lab results scanned in [facility]. Results displayed in [id number] Lab Documents (Imaged) under date/time results were scanned. Report sent for scanning on 12/10/2014. Immunizations No data available for this section Procedures Procedure Date Related Diagnosis Body Site Kidney transplantation 05/23/13 section1 Creation of upper limb arteriovenous fistula Renal biopsy 1x3 Social History Social History Type Response Substance [...]
--- OUTSIDE RECORDS SUMMARY | 2018-08-01 03:14 | XMS REPORT | Summary of Care ---
:1965 Author Encounter [facility] Bob(LEANA) [id number] Date(s): 05/01/14 - 05/30/[address] Discharge Disposition: Home Physician Attending: Shanae Toussaint MD Physician_Referring: Shanae Toussaint MD Reason for Visit FOLLOW UP DIABETES Vital Signs Most recent to oldest [Reference Range]: 1 Height 162.56 cm (05/22/14 10:21 AM) Systolic Blood Pressure [90-140 mmHg] 124 mmHg (05/22/14 10:21 AM) Diastolic Blood Pressure [60-90 mmHg] 68 mmHg (05/22/14 10:21 AM) Peripheral Pulse Rate [60-100 bpm] 60 bpm (05/22/14 10:21 AM) Weight 80.682 kg (05/22/14 10:21 AM) Body Mass Index 30.53 m2 (05/22/14 10:21 AM) Problem List Condition Effective Dates Status [...] Medications Levemir FlexPen 100 units/mL subcutaneous solution 44 UNITS, SUB-Q, Daily, at 8pm, # 10 mL, 0 Refill(s), other Special Instructions: at 8pm Start Date: 05/13/14 Stop Date: 05/22/14 Status: DiscontinuedLevemir FlexPen 100 units/mL subcutaneous solution 48 units, SUB-Q, Daily, # 10 mL, 0 Refill(s), other Start Date: 05/22/14 Status: OrderedLevemir FlexPen 100 units/mL subcutaneous solution 40 unit, SUB-Q, Q8PM, # 10 mL, 2 Refill(s), called to pharmacy Start Date: 04/24/14 Stop Date: 05/13/14 Status: DiscontinuedNovoLOG FlexPen 100 units/mL subcutaneous solution 01/22/10 units, SUB-Q, TID-Before Meals, # 10 mL, 0 Refill(s), other Start Date: 05/13/14 Stop Date: 05/22/14 Status: DiscontinuedNovoLOG FlexPen 100 units/mL subcutaneous solution 05/24/10 units, SUB-Q, Daily, 8pm, # 10 mL, 0 Refill(s), other Special Instructions: 8pm Start Date: 05/22/14 Status: OrderedShort Pen [place] Short Pen [place], Use pen needle, TOP, QID, # 300 unit, Refill(s) 0, called to pharmacy Start Date: 05/22/14 Status: Ordered Medications Administered During Your Visit [...]
--- OUTSIDE RECORDS SUMMARY | 2018-08-01 03:14 | XMS REPORT | Summary of Care ---
:1965 Author Encounter [facility] July_rikki(LEANA) [id number] Date(s): 10/21/14 - 11/19/[address] [place] [address] Discharge Disposition: Home Physician Attending: Shanae Toussaint [...] REFERENCE LAB RESULTS Most recent to oldest 1 2 3 [Reference Range]: HLA Misc Test See Report 1 See Report 2 See Report 3 (11/11/14 1:23 PM) (10/21/14 1:01 PM) (10/21/14 1:00 PM) Test Name HLA TYPING HLA TYPING HLA TYPING *Unknown* *Unknown* *Unknown* (11/11/14 1:23 PM) (10/21/14 1:01 PM) (10/21/14 1:00 PM) 1Result Comment: Reference lab results scanned in [facility]. Results displayed in [id number]-Outside Lab Documents (Imaged) under date/time results were scanned. Report sent for scanning on 11/18/2014.2Result Comment: Reference lab results scanned in [facility]. Results displayed in Results-Lab- REFERENCE LAB-Outside Lab Documents (Imaged) under date/time results were scanned. Report sent for scanning on 11/10/2014.3Result Comment: Reference lab results scanned in [facility]. Results displayed in [id number]- Outside Lab Documents (Imaged) under date/time results were scanned. Report sent for scanning on 11/10/2014. Immunizations No data available for this section [...]
--- OUTSIDE RECORDS SUMMARY | 2018-08-01 03:14 | XMS REPORT | Summary of Care ---
:1965 Author Encounter [facility] Bob(LEANA) [id number] Date(s): 02/12/14 - 03/13/[address] Discharge Disposition: Home Physician Attending: Robert Sinha MD Physician_Referring: Robert Sinha MD Reason for Visit LABS Problem List Condition Effective Dates Status [...]
--- OUTSIDE RECORDS SUMMARY | 2018-08-01 03:14 | XMS REPORT | Summary of Care ---
:1965 Author Encounter [facility] Bob(LEANA) [id number] Date(s): 04/03/14 - 05/02/[address] Discharge Disposition: Home Physician Attending: Robert Sinha MD Physician_Referring: Robert Sinha MD Reason for Visit RENAL POST LABS Problem List Condition Effective Dates Status [...]
--- OUTSIDE RECORDS SUMMARY | 2018-08-01 03:14 | XMS REPORT | Summary of Care ---
:1965 Author Encounter [facility] Bob(LEANA) [id number] Date(s): 03/06/14 - 04/04/[address] Discharge Disposition: Home Physician Attending: Shanae Toussaint MD Physician_Referring: Shanae Toussaint MD Reason for Visit FOLLOW UP DIABETES Vital Signs Most recent to oldest [Reference Range]: 1 Height 162.56 cm (03/27/14 10:16 AM) Systolic Blood Pressure [90-140 mmHg] 118 mmHg (03/27/14 10:16 AM) Diastolic Blood Pressure [60-90 mmHg] 76 mmHg (03/27/14 10:16 AM) Peripheral Pulse Rate [60-100 bpm] 74 bpm (03/27/14 10:16 AM) Weight 80.455 kg (03/27/14 10:16 AM) Body Mass Index 30.45 m2 (03/27/14 10:16 AM) Problem List Condition Effective Dates Status [...] Medications Levemir FlexPen 100 units/mL subcutaneous solution 40 unit, SUB-Q, Q8PM, # 10 mL, 0 Refill(s), other Start Date: 03/27/14 Status: OrderedLevemir FlexPen 100 units/mL subcutaneous solution 40 units 8am/6 units 8pm, SUB-Q, BID, # 10 mL, 0 Refill(s), called to pharmacy Start Date: 03/06/14 Stop Date: 03/27/14 Status: Discontinued Medications Administered During Your Visit [...]
--- OUTSIDE RECORDS SUMMARY | 2018-08-01 03:14 | XMS REPORT | Summary of Care ---
:1965 Author Encounter HQ Bob(LEANA) [id number] Date(s): 01/15/14 - 02/13/[address] Discharge Disposition: Home Physician Attending: Shanae [...] Medications Levemir FlexPen 100 units/mL subcutaneous solution =40 unit, SUB-Q, Daily, # 10 mL, 0 Refill(s), other Start Date: 02/12/14 Status: Ordered Results REFERENCE LAB RESULTS Most recent to oldest [Reference Range]: 1 HLA Misc Test See Report 1 (01/15/14 5:16 PM) Test Name HLA TYPING *Unknown* (01/15/14 5:16 PM) 1Result Comment: Reference lab results scanned in [facility]. Results displayed in [id number]-Outside Lab Documents (Imaged) under date/time results were scanned. Report sent for scanning on 01/27/2014. Medications Administered During Your Visit No data [...]
--- OUTSIDE RECORDS SUMMARY | 2018-08-01 03:14 | XMS REPORT | Summary of Care ---
:1965 Author Encounter HQ July_rikki(LEANA) [id number] Date(s): 08/12/14 - 09/10/[address] Discharge Disposition: Home Physician Attending: Shanae [...] 2 Refill(s), called to pharmacy Start Date: 08/13/14 Status: OrderedNovoLOG FlexPen Novolog 05/26/12 units, SUB-Q, TID-Before Meals, 0 Refill(s) Start Date: 09/02/14 Status: Ordered Results SPECIAL CHEMISTRY Most recent to oldest [Reference Range]: 1 Hgb A1C [<=5.6 %] 6.7 % *HI* (08/12/14 11:36 AM) Immunizations No data available for this section [...]
--- OUTSIDE RECORDS SUMMARY | 2018-08-01 03:14 | XMS REPORT | Summary of Care ---
:1965 Author Encounter HQ Bob(LEANA) [id number] Date(s): 05/15/14 - 06/13/[address] Discharge Disposition: Home Physician Attending: Robert [...] Substance Reaction Severity Status NKDA Active Medications leflunomide 20 mg oral tablet 60 mg=3 tab, PO, Daily, # 90 tab, 3 Refill(s), Pharmacy: [facility] [place] [id number] Start Date: 05/29/14 Status: Ordered Results ELECTROLYTES Most recent to oldest [Reference Range]: 1 2 Sodium Lvl [135-145 mEq/L] 141 mEq/L (05/15/14 8:08 AM) Potassium Lvl [3.5-5.1 mEq/L] 3.7 mEq/L (05/15/14 8:08 AM) Chloride Lvl [95-109 mEq/L] 109 mEq/L (05/15/14 8:08 AM) CO2 [24-32 mEq/L] 21 mEq/L *LOW* (05/15/14 8:08 AM) AGAP [10.0-20.0 mEq/L] 14.7 mEq/L (05/15/14 8:08 AM) CHEM PANEL Most recent to oldest [Reference Range]: 1 2 Creatinine Lvl [0.5-1.4 mg/dL] 0.9 mg/dL (05/15/14 8:08 AM) eGFR 76 mL/min/1.73m2 1 *NA* (05/15/14 8:08 AM) BUN [7-22 mg/dL] 17 mg/dL (05/15/14 8:08 AM) B/C Ratio [6-25] 19 (05/15/14 8:08 AM) Glucose Lvl [70-99 mg/dL] 126 mg/dL 2 *HI* (05/15/14 8:08 AM) Total Protein [6.4-8.4 g/dL] 7.3 g/dL (05/15/14 8:08 AM) Albumin Lvl [3.5-5.0 g/dL] 3.9 g/dL (05/15/14 8:08 AM) Globulin [2.0-4.0 g/dL] 3.4 g/dL (05/15/14 8:08 AM) A/G Ratio [0.7-1.6] 1.1 (05/15/14 8:08 AM) Calcium Lvl [8.5-10.5 mg/dL] 9.8 mg/dL (05/15/14 8:08 AM) Phosphorus [2.5-4.5 mg/dL] 3.6 mg/dL (05/15/14 8:08 AM) ALT [0-65 unit/L] 39 unit/L (05/15/14 8:08 AM) AST [0-37 unit/L] 22 unit/L (05/15/14 8:08 AM) Alk Phos [39-136 unit/L] 115 unit/L (05/15/14 8:08 AM) Bili Total [0.2-1.3 mg/dL] 0.3 mg/dL (05/15/14 8:08 AM) 1Result Comment: The eGFR is calculated using [...] values reflect the clinical guidelines of the [place] [employer].LIPIDS Most recent to oldest [Reference Range]: 1 2 CHD Risk [3.90-5.80] 4.22 (05/15/14 8:08 AM) Chol [<=199 mg/dL] 228 mg/dL *HI* (05/15/14 8:08 AM) Trig [<=149 mg/dL] 305 mg/dL *HI* (05/15/14 8:08 AM) HDL [>=61 mg/dL] 54 mg/dL *LOW* (05/15/14 8:08 AM) LDL (Calculated) [<=99 mg/dL] 113 mg/dL *HI* (05/15/14 8:08 AM) VLDL 61 *NA* (05/15/14 8:08 AM) SPECIAL CHEMISTRY Most recent to oldest [Reference Range]: 1 2 Hgb A1C [<=5.6 %] 7.2 % *HI* (05/15/14 8:08 AM) PARATHYROID PROFILE Most recent to oldest [Reference Range]: 1 2 Ca Ion WB [1.05-1.25 mMol/L] 1.23 mMol/L (05/15/14 8:08 AM) Ca Norm WB [1.05-1.25 mMol/L] 1.20 mMol/L (05/15/14 8:08 AM) TOXICOLOGY Most recent to oldest [Reference Range]: 1 2 Tacrolimus Lvl [5.0-15.0 ng/mL] 11.0 ng/mL (05/15/14 8:08 AM) Teriflunomide Lvl 23481 ng/mL 3 *NA* (05/15/14 8:08 AM) ImmuKnow 134 ATP ng/mL 4 *NA* (05/15/14 8:08 AM) 3Result Comment: Mean steady state plasma concentrations of teriflunomide from patients on daily dosages of 5, 10, or 25 mg of leflunomide were 8,800, 18,000 and 63,000 ng/mL, respectively. It is recommended that women of childbearing potential who discontinue leflunomide therapy undergo the cholestyramine drug elimination procedure. This procedure includes verification that plasma levels of teriflunomide are less than 20 ng/mL by two separate tests at least 14 days apart. Test Performed at: [facility], [address] [place] [id number] Verenice Slater MD, [id number] Data: Reference Range: Low Immune Cell Response <=225 ATP Level ng/mL Moderate Immune Cell Response 226-524 ATP Level ng/mL Strong Immune Cell Response >=525 ATP Level ng/mL Note: This is a qualitative assay. Therefore the result does not directly quantify the level of immunosuppression. These results should be used in conjunction with clinical presentation, medical history, and other clinical indicators when establishing the immune status of a patient. This test has been cleared or approved for diagnostic use by the U.S. Food and Drug Administration. ImmuKnow (R) is a trademark of [employer].URINE CHEM Most recent to oldest [Reference Range]: 1 2 U Microalb 6.6 mg/L *NA* (05/15/14 8:08 AM) U Alb/Crea [<=30.0 mcg/mg creat] 5.5 mcg/mg creat (05/15/14 8:08 AM) U Creatinine 120.0 mg/dL 5 120.0 mg/dL 6 *NA* *NA* (05/15/14 8:08 AM) (05/15/14 8:08 AM) U Protein 15.6 mg/dL 7 *NA* (05/15/14 8:08 AM) U Prot/Creat 0.1 *NA* (05/15/14 8:08 AM) 5Interpretive Data: No established reference ranges.6Interpretive Data: No established reference ranges.7Interpretive Data: No established reference ranges.URINE AND STOOL Most recent to oldest [Reference Range]: 1 2 UA Turbidity [Clear] Clear (05/15/14 8:08 AM) UA Color [Yellow] Yellow *NA* (05/15/14 8:08 AM) UA pH [5.0-8.0] 5.5 (05/15/14 8:08 AM) UA Spec Grav [<=1.030] 1.012 (05/15/14 8:08 AM) UA Glucose [Negative mg/dL] 50 mg/dL *ABN* (05/15/14 8:08 AM) UA Blood [Negative] Negative (05/15/14 8:08 AM) UA Ketones [Negative mg/dL] Negative mg/dL *NA* (05/15/14 8:08 AM) UA Protein [Negative mg/dL] Negative mg/dL (05/15/14 8:08 AM) UA Urobilinogen [0.1-1.0 mg/dL] <=1.0 mg/dL *NA* (05/15/14 8:08 AM) UA Bili [Negative] Negative *NA* (05/15/14 8:08 AM) UA Leuk Est [Negative] Negative (05/15/14 8:08 AM) UA Nitrite [Negative] Negative (05/15/14 8:08 AM) UA WBC [0-5 /HPF] 4 /HPF (05/15/14 8:08 AM) UA RBC [0-2 /HPF] <1 /HPF (05/15/14 8:08 AM) UA Bacteria [None Seen /HPF] Occasional /HPF *NA* (05/15/14 8:08 AM) UA Sq Epi [Few /LPF] Few /LPF *NA* (05/15/14 8:08 AM) UA Mucus [None Seen /LPF] Few /LPF *NA* (05/15/14 8:08 AM) HEMATOLOGY Most recent to oldest [Reference Range]: 1 2 WBC [3.7-10.4 K/CMM] 5.2 K/CMM (05/15/14 8:08 AM) RBC [4.20-5.40 M/CMM] 4.94 M/CMM (05/15/14 8:08 AM) Hgb [12.0-16.0 g/dL] 13.9 g/dL (05/15/14 8:08 AM) Hct [36.0-48.0 %] 41.4 % (05/15/14 8:08 AM) MCV [80.0-98.0 fL] 83.8 fL (05/15/14 8:08 AM) MCH [27.0-31.0 pg] 28.0 pg (05/15/14 8:08 AM) MCHC [32.0-36.0 g/dL] 33.4 g/dL (05/15/14 8:08 AM) RDW [11.5-14.5 %] 13.3 % (05/15/14 8:08 AM) Platelet [133-450 K/CMM] 144 K/CMM (05/15/14 8:08 AM) MPV [7.4-10.4 fL] 10.4 fL (05/15/14 8:08 AM) Segs [45.0-75.0 %] 61.2 % (05/15/14 8:08 AM) Lymphocytes [20.0-40.0 %] 25.2 % (05/15/14 8:08 AM) Monocytes [2.0-12.0 %] 9.8 % (05/15/14 8:08 AM) Eosinophils [0.0-4.0 %] 3.2 % (05/15/14 8:08 AM) Basophils [0.0-1.0 %] 0.6 % (05/15/14 8:08 AM) Segs-Bands # [1.5-8.1 K/CMM] 3.2 K/CMM (05/15/14 8:08 AM) Lymphocytes # [1.0-5.5 K/CMM] 1.3 K/CMM (05/15/14 8:08 AM) Monocytes # [0.0-0.8 K/CMM] 0.5 K/CMM (05/15/14 8:08 AM) Eosinophils # [0.0-0.5 K/CMM] 0.2 K/CMM (05/15/14 8:08 AM) REFERENCE LAB RESULTS Most recent to oldest [Reference Range]: 1 2 HLA Misc Test See Report 8 (06/01/14 8:12 PM) Test Name HLA TYPING *Unknown* (06/01/14 8:12 PM) 8Result Comment: Reference lab results scanned in [facility]. Results displayed in [id number]-Outside Lab Documents (Imaged) under date/time results were scanned. Report sent for scanning on 06/10/2014.MOLECULAR DIAGNOSTIC Most recent to oldest [Reference Range]: 1 2 Source CMV PCR Qnt Blood (05/15/14 8:08 AM) CMV PCR Qnt [Negative] Negative (05/15/14 8:08 AM) CMV PCR Qnt (log) <2.4 log 9 *NA* (05/15/14 8:08 AM) Source BK Virus PCR Qnt Plasma *NA* (05/15/14 8:08 AM) BK Virus PCR Qnt 10751 copies/mL 10 *NA* (05/15/14 8:08 AM) BK Virus PCR Qnt (log) 4.1 log 11 *NA* (05/15/14 8:08 AM) 9Interpretive Data: Analytic Quantification Range: 250-2,500,000 copies/mL (2.4- [...] verified by the [facility] within [facility]. The [facility] Laboratory is authorized under the Clinical Laboratory Improvement Amendments of 1988 (CLIA-88) to perform high complexity testing.10Result Comment: "Significant Findings called to Hernandez Quezada_at 02/2014 08:19 by bf. Read Back OK."11Interpretive Data: Analytic Quantification Range: 100-400,000,000 copies/mL (2.0-8.6 [...] verified by the [facility] within [facility]. The [facility] is authorized [...]
--- OUTSIDE RECORDS SUMMARY | 2018-08-01 03:15 | XMS REPORT | Summary of Care ---
:1965 Author Encounter HQ July_rikki(LEANA) [id number] Date(s): 11/04/14 - 12/03/[address] Discharge Disposition: Home Physician Attending: Shanae [...] Medications Levemir FlexPen 100 units/mL subcutaneous solution 26/42 units, SUB-Q, BID, # 61 mL, 0 Refill(s), called to pharmacy Start Date: 11/18/14 Status: Ordered Results No data available for [...]
--- OUTSIDE RECORDS SUMMARY | 2018-08-01 03:15 | XMS REPORT | Summary of Care ---
:[address] [facility] Address [address] [place] [phone] Encounter HQ July_rikki(FIN) [id number] Date(s): 02/04/15 - 02/04/[address] [facility] [address] [place] [phone]- WebNotes Discharge Disposition: Home Attending Physician: Shanae Toussaint MD Referring Physician: Shanae Toussaint MD Vital Signs Most recent to oldest [Reference Range]: 1 Height 162.56 cm (02/04/15 9:01 AM) Most recent to oldest [Reference Range]: 1 Blood Pressure [90-140/60-90 mmHg] 130/84 mmHg (02/04/15 9:01 AM) Most recent to oldest [Reference Range]: 1 Peripheral Pulse Rate [60-100 bpm] 64 bpm (02/04/15 9:01 AM) Most recent to oldest [Reference Range]: 1 Weight 83.409 kg (02/04/15 9:01 AM) Most recent to oldest [Reference Range]: 1 Body Mass Index 31.56 m2 (02/04/15 9:01 AM) Problem List Condition Effective Dates Status Health Status Informant 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 Chronic kidney disease Resolved (CKD)(Confirmed) CMV (cytomegalovirus)(Confirmed) Resolved ESRD (end stage renal Resolved disease)(Confirmed) Polycythemia(Confirmed) Resolved History of renal Resolved transplant(Confirmed) HTN - Hypertension(Confirmed) Resolved Hyperlipidemia(Confirmed) Resolved Pancreas(Confirmed) Resolved DM (diabetes mellitus) type II Resolved controlled with renal manifestation(Confirmed) Allergies, Adverse Reactions, Alerts Substance Reaction Severity Status NKDA Active Medications No data available for this section Results No data available for this section [...]
--- OUTSIDE RECORDS SUMMARY | 2018-08-01 03:15 | XMS REPORT | Summary of Care ---
:1965 Author Encounter HQ July_rikki(LEANA) [id number] Date(s): 12/02/14 - 12/03/[address] Professional Services provided by [facility] [place] [address]- Discharge Disposition: Home Physician Attending: Salvador Mckeon MD Physician Admitting: Salvador Mckeon MD Physician_Referring: Salvador Mckeon MD Vital Signs Most recent to oldest 1 2 3 [Reference Range]: Height 162.56 cm 162.56 cm (12/02/14 9:50 AM) (11/30/14 12:54 PM) Temperature Oral [96.4-99.1 97.8 DegF 97.8 DegF DegF] (12/03/14 11:14 AM) (12/03/14 8:21 AM) Blood Pressure [90-140/60-90 121/64 mmHg 140/65 mmHg 101/54 mmHg mmHg] (12/03/14 11:14 AM) (12/03/14 8:21 AM) (12/03/14 4:18 AM) Respiratory Rate [14-20 19 BRMIN 18 BRMIN 18 BRMIN BRMIN] (12/03/14 11:14 AM) (12/03/14 8:21 AM) (12/03/14 4:18 AM) Peripheral Pulse Rate [60-100 58 bpm 95 bpm 58 bpm bpm] *LOW* (12/03/14 8:21 AM) *LOW* (12/03/14 11:14 AM) (12/03/14 4:18 AM) Weight 77.273 kg 80.909 kg (12/02/14 9:50 AM) (11/30/14 12:54 PM) Body Mass Index 29.24 m2 30.62 m2 (12/02/14 9:50 AM) (11/30/14 12:54 PM) Problem List Condition Effective Dates Status Health [...] Substance Reaction Severity Status NKDA Active Medications Bactrim SS 400 mg-80 mg oral tablet 1 tab, Route: PO, Drug Form: TAB, Dosing Weight 77.273, kg, Daily, Start date: 12/03/14 9:00:00, Duration: 30 day, Stop date: 01/01/15 9:00:00 Start Date: 12/03/14 Stop Date: 12/03/14 Status: Discontinuedcarvedilol 25 mg, 1 tab, Route: PO, Drug form: TAB, Q12H, Dosing Weight 77.273, kg, Start date: 12/02/14 21:00:00, Duration: 30 day, Stop date: 01/01/15 9:00:00 Start Date: 12/02/14 Stop Date: 12/03/14 Status: Discontinuedcarvedilol 25 mg oral tablet 25 mg=1 tab, PO, Q12H, # 60 tab, 0 Refill(s) Start Date: 11/30/14 Stop Date: 12/03/14 Status: DiscontinuedColace 100 mg oral capsule 100 mg, 1 cap, Route: PO, Drug form: CAP, BID, Dosing Weight 77.273, kg, PRN as needed for constipation, Start date: 12/02/14 13:40:00, Duration: 30 day, Stop date: 01/01/15 13:39:00 Notes: (Same as: Colace) (Do Not Crush) Start Date: 12/02/14 Stop Date: 12/03/14 Status: DiscontinuedDextrose 50% Syringe 12.5 gm, 25 mL, Route: IVP, Drug Form: INJ, Dosing Weight 77.273, kg, PRN, PRN Blood Glucose Results, Start date: 12/02/14 13:43:00, Duration: 30 day, Stop date: 01/01/15 13:42:00 Start Date: 12/02/14 Stop Date: 12/03/14 Status: DiscontinuedDextrose 50% Syringe 25 gm, 50 mL, Route: IVP, Drug Form: INJ, Dosing Weight 77.273, kg, PRN, PRN Blood Glucose Results, Start date: 12/02/14 13:43:00, Duration: 30 day, Stop date: 01/01/15 13:42:00 Start Date: 12/02/14 Stop Date: 12/03/14 Status: Discontinuedeverolimus 0.25 mg oral tablet 0.5 mg=2 tab, PO, Q12H, # 120 tab, 3 Refill(s), Pharmacy: [facility] [id number] Start Date: 12/02/14 Status: Orderedflumazenil 0.2 mg, 2 mL, Route: IVP, Drug form: INJ, PRN, Dosing Weight 77.273, kg, PRN Benzodiazepine Reversal, Initial dose, Start date: 12/02/14 14:35:00, Duration: 30 day, Stop date: 01/01/15 14:34:00 Notes: (Same as: Romazicon) Start Date: 12/02/14 Stop Date: 12/02/14 Status: Discontinuedglucagon 1 mg, Route: IM, Drug form: PDR/INJ, PRN, Dosing Weight 77.273, kg, PRN Blood Glucose Results, Startdate: 12/02/14 13:43:00, Duration: 30 day, Stop date: 13:42:00 Start Date: 12/02/14 Stop Date: 12/03/14 Status: DiscontinuedhydrALAZINE 10 mg, 0.5 mL, Route: IVP, Drug form: INJ, Q20Min, Dosing Weight 77.273, kg, PRN Elevated BP, Start date: 12/02/14 14:35:00, Duration: 2 doses or times, Stop date: 12/03/14 0:00:00 Notes: (Same as: Apresoline)Push over 5 minutes Start Date: 12/02/14 Stop Date: 12/02/14 Status: DiscontinuedhydrALAZINE 20 mg, 1 mL, Route: IVP, Drug form: INJ, Q4H, Dosing Weight 77.273, kg, PRN Hypertension, Priority: Routine, Start date: 12/02/14 16:09:00, Duration: 30 day , Stop date: 01/01/15 16:08:00 Notes: (Same as: Apresoline)Push over 5 minutes Start Date: 12/02/14 Stop Date: 12/03/14 Status: Discontinuedinsulin aspart 8 unit, 0.08 mL, Route: SUB-Q, Drug form: SOLN, TID-Before Meals, Dosing Weight 77.273, kg, PRN Blood Glucose Results, Start date: 12/02/14 13:43:00, Duration: 30 day, Stop date: 01/01/15 13:42:00 Notes: Roll in palms of hands gently; Do not shake vigorously. (Same as: NovoLOG)"single patient use only" Stable for 28 days at room temperature.Expires in days from Date Start Date: 12/02/14 Stop Date: 12/03/14 Status: Discontinuedinsulin aspart 10 unit, 0.1 mL, Route: SUB-Q, Drug form: SOLN, TID-Before Meals, Dosing Weight 77.273, kg, PRN Blood Glucose Results, Start date: 12/02/14 13:43:00, Duration: 30 day, Stop date: 01/01/15 13:42:00 Notes: Roll in palms of hands gently; Do not shake vigorously. (Same as: NovoLOG)"single patient use only" Stable for 28 days at room temperature.Expires in days from Date Start Date: 12/02/14 Stop Date: 12/03/14 Status: Discontinuedinsulin aspart 6 unit, 0.06 mL, Route: SUB-Q, Drug form: SOLN, TID-Before Meals, Dosing Weight 77.273, kg, PRN Blood Glucose Results, Start date: 12/02/14 13:43:00, Duration: 30 day, Stop date: 01/01/15 13:42:00 Notes: Roll in palms of hands gently; Do not shake vigorously. (Same as: NovoLOG)"single patient use only" Stable for 28 days at room temperature.Expires in days from Date Start Date: 12/02/14 Stop Date: 12/03/14 Status: Discontinuedinsulin aspart 4 unit, 0.04 mL, Route: SUB-Q, Drug form: SOLN, TID-Before Meals, Dosing Weight 77.273, kg, PRN Blood Glucose Results, Start date: 12/02/14 13:43:00, Duration: 30 day, Stop date: 01/01/15 13:42:00 Notes: Roll in palms of hands gently; Do not shake vigorously. (Same as: NovoLOG)"single patient use only" Stable for 28 days at room temperature.Expires in days from Date Start Date: 12/02/14 Stop Date: 12/03/14 Status: Discontinuedinsulin aspart 2 unit, 0.02 mL, Route: SUB-Q, Drug form: SOLN, TID-Before Meals, Dosing Weight 77.273, kg, PRN Blood Glucose Results, Start date: 12/02/14 13:43:00, Duration: 30 day, Stop date: 01/01/15 13:42:00 Notes: Roll in palms of hands gently; Do not shake vigorously. (Same as: NovoLOG)"single patient use only" Stable for 28 days at room temperature.Expires in days from Date Start Date: 12/02/14 Stop Date: 12/03/14 Status: DiscontinuedK-Phos Neutral oral tablet 1 tab, PO, BID, 0 Refill(s) Start Date: 12/03/14 Stop Date: 12/03/14 Status: Discontinuedleflunomide 40 mg, 2 tab, Route: PO, Drug form: TAB, Daily, Dosing Weight 77.273, kg, Start date: 12/03/14 9:00:00, Duration: 30 day, Stop date: 01/01/15 9:00:00 Notes: Non-Formulary Drug (Same as:Arava) Start Date: 12/03/14 Stop Date: 12/03/14 Status: Discontinuedleflunomide 20 mg oral tablet 60 mg=3 tab, PO, Daily, 0 Refill(s) Start Date: 11/30/14 Stop Date: 12/03/14 Status: Discontinuedleflunomide 20 mg oral tablet 40 mg=2 tab, PO, Daily, 0 Refill(s) Start Date: 12/03/14 Status: OrderedLevemir FlexPen 25 unit, 0.25 mL, Route: SUB-Q, Drug form: INJ, Daily, Dosing Weight 77.273, kg , Start date: 12/03/14 9:00:00, Duration: 30 day, Stop date: 01/01/15 9:00:00 Notes: Same as LevemirDo not hold insulin without contacting prescriber " single patient use only" Start Date: 12/03/14 Stop Date: 12/03/14 Status: DiscontinuedLevemir FlexPen 46 unit, 0.46 mL, Route: SUB-Q, Drug form: INJ, Bedtime, Dosing Weight 77.273, kg, Start date: 12/02/14 21:00:00, Duration: 30 day, Stop date: 12/31/14 21:00: 00 Notes: Same as LevemirDo not hold insulin without contacting prescriber " single patient use only" Start Date: 12/02/14 Stop Date: 12/03/14 Status: DiscontinuedLevemir FlexPen 100 units/mL subcutaneous solution 46 units, SUB-Q, Bedtime, 0 Refill(s) Start Date: 11/30/14 Stop Date: 12/03/14 Status: DiscontinuedLevemir FlexPen 100 units/mL subcutaneous solution 25 unit, SUB-Q, Daily, 0 Refill(s) Start Date: 11/30/14 Stop Date: 12/03/14 Status: DiscontinuedLyrica 50 mg oral capsule 50 mg=1 cap, PO, BID, 0 Refill(s) Start Date: 12/03/14 Status: Orderedmagnesium oxide 800 mg, 2 tab, Route: PO, Drug form: TAB, BID, Dosing Weight 77.273, kg, Start date: 12/02/14 17:00:00, Duration: 30 day, Stop date: 01/01/15 9:00:00 Notes: (Same as: Mag-Ox 400)Magnesium oxide [id number] elemental magnesiumDose= ____mg magnesium oxide (___mg elemental magnesium) Start Date: 12/02/14 Stop Date: 12/03/14 Status: Discontinuedmagnesium oxide 400 mg oral tablet 800 mg=2 tab, PO, BID, 0 Refill(s) Start Date: 11/30/14 Stop Date: 12/03/14 Status: Discontinuednaloxone 0.04 mg, 0.1 mL, Route: IVP, Drug form: INJ, Q2MIN, Dosing Weight 77.273, kg, PRN Narcotic Reversal,Start date: 12/02/14 14:35:00, Duration: 8 doses or times , Stop date: 12/03/14 0:00:00 Notes: (Same as: Narcan) Start Date: 12/02/14 Stop Date: 12/02/14 Status: DiscontinuedNifediac CC 90 mg oral tablet, extended release 90 mg=1 tab, PO, Q12H, 0 Refill(s) Start Date: 12/03/14 Status: OrderedNIFEdipine 90 mg oral tablet, extended release 90 mg, 1 tab, Route: PO, ONCE, Dosing Weight 77.273, kg, Start date: 12/02/14 14 :18:00, Stop date: 12/02/14 14:18:00 Start Date: 12/02/14 Stop Date: 12/02/14 Status: CompletedNIFEdipine 90 mg oral tablet, extended release 90 mg, 1 tab, Route: PO, Drug form: ERTAB, Q12H, Dosing Weight 77.273, kg, Start date: 12/02/14 21:00:00, Duration: 30 day, Stop date: 01/01/15 9:00:00 Notes: (Same as:Adalat CC, Procardia XL) Give on empty stomach. Take 1 hour before or 2 hours aftermeal; "Avoid grapefruit and grapefruit juice". Do not crush Start Date: 12/02/14 Stop Date: 12/03/14 Status: DiscontinuedNIFEdipine 90 mg oral tablet, extended release 90 mg=1 tab, PO, Daily, # 30 tab, 0 Refill(s) Start Date: 11/30/14 Stop Date: 12/03/14 Status: DiscontinuedNIFEdipine 90 mg oral tablet, extended release 90 mg, 1 tab, Route: PO, Drug form: ERTAB, Daily, Dosing Weight 77.273, kg, Start date: 12/03/14 9:00:00, Duration: 30 day, Stop date: 01/01/15 9:00:00 Notes: (Same as:Adalat CC, Procardia XL) Give on empty stomach. Take 1 hour before or 2 hours aftermeal; "Avoid grapefruit and grapefruit juice". Do not crush Start Date: 12/03/14 Stop Date: 12/02/14 Status: CanceledNovoLOG 14 unit, SUB-Q, TID-Before Meals, 16 units afternoon/ 12 units dinner before a meal, 0 Refill(s) Special Instructions: 16 units afternoon/ 12 units dinnerbefore a meal Start Date: 11/30/14 Stop Date: 12/03/14 Status: DiscontinuedNovoLOG 14 unit, 0.14 mL, Route: SUB-Q, Drug form: SOLN, TID-Before Meals, Dosing Weight 77.273, kg, Start date: 12/02/14 16:30:00, Duration: 30 day, Stop date: 01/01/15 11:30:00 Notes: Roll in palms of hands gently; Do not shake vigorously. (Same as: NovoLOG)"single patient use only" Stable for 28 days at room temperature.Expires in days from Date Start Date: 12/02/14 Stop Date: 12/03/14 Status: Discontinuedondansetron 4 mg, 2 mL, Route: IVP, Drug form: INJ, ONCE, Dosing Weight 77.273, kg, PRN Nausea & Vomiting, Start date: 12/02/14 14:35:00 Notes: (Same as: Zofran) MEDICATION WASTE Product Size: 4 mgProduct Wasted: ___ mg Start Date: 12/02/14 Stop Date: 12/02/14 Status: DiscontinuedPepcid 20 mg oral tablet 20 mg, 1 tab, Route: PO, Drug form: TAB, Daily, Dosing Weight 77.273, kg, Start date: 12/03/14 9:00:00, Duration: 30 day, Stop date: 01/01/15 9:00:00 Notes: (Same as: Pepcid) Start Date: 12/03/14 Stop Date: 12/03/14 Status: DiscontinuedpredniSONE 5 mg, 1 tab, Route: PO, Drug form: TAB, Daily, Dosing Weight 77.273, kg, Start date: 12/03/14 9:00:00, Duration: 30 day, Stop date: 01/01/15 9:00:00 Notes: Take with food. Start Date: 12/03/14 Stop Date: 12/03/14 Status: DiscontinuedpredniSONE 20 mg, Route: PO, Drug form: TAB, Daily, Dosing Weight 77.273, kg, Start date: 12/03/14 9:00:00, Duration: 30 day, Stop date: 01/01/15 9:00:00 Start Date: 12/03/14 Stop Date: 12/02/14 Status: CanceledpredniSONE 10 mg oral tablet 5 mg=0.5 tab, PO, Daily, 0 Refill(s) Start Date: 12/03/14 Status: OrderedSaline Flush 0.9% 10 ml, Route: IVP, Drug Form: INJ, Dosing Weight 77.273, kg, PRN, PRN Line Flush , Start date: 12/02/14 13:35:00, Duration: 30 day, Stop date: 01/01/15 13:34:00 Notes: Same as: BD Posiflush Sterile Start Date: 12/02/14 Stop Date: 12/03/14 Status: DiscontinuedSenna 8.6 mg oral tablet 17.2 mg=2 tab, PO, Bedtime, 0 Refill(s) Start Date: 12/03/14 Status: Orderedsimvastatin 20 mg oral tablet 20 mg=1 tab, PO, Bedtime, # 30 tab, 6 Refill(s), Pharmacy: [facility] [id number] Start Date: 12/03/14 Status: Orderedsimvastatin 20 mg oral tablet 20 mg=1 tab, PO, Bedtime, # 90 tab, 1 Refill(s), given to patient Start Date: 12/03/14 Stop Date: 12/03/14 Status: Discontinuedsodium bicarbonate 650 mg, PO, TID, 0 Refill(s) Start Date: 11/30/14 Stop Date: 12/03/14 Status: Discontinuedsodium bicarbonate 1,300 mg, PO, TID, 0 Refill(s) Start Date: 12/03/14 Status: Orderedsodium bicarbonate 650 mg, 1 tab, Route: PO, Drug form: TAB, TID, Dosing Weight 77.273, kg, Start date: 12/02/14 17:00:00, Duration: 30 day, Stop date: 01/01/15 13:00:00 Notes: "Dissolve tablet in a glass of water prior to oral administration. STOMACH WARNING: To avoidserious injury, do not take until tablet is completely dissolved. It is very important not to take this product when overly full from food or drink." Start Date: 12/02/14 Stop Date: 12/03/14 Status: Discontinuedtacrolimus 1 mg, 1 cap, Route: PO, Drug form: CAP, Q12H, Dosing Weight 77.273, kg, Start date: 12/02/14 21:00:00, Duration: 30 day, Stop date: 01/01/15 9:00:00 Notes: Avoid grapefruit and grapefruit juice.(Same As: Prograf) Start Date: 12/02/14 Stop Date: 12/03/14 Status: Discontinuedtacrolimus 0.5 mg oral capsule 0.5 mg=1 cap, PO, Q12H, # 60 cap, 3 Refill(s), Pharmacy: [facility] [id number] Start Date: 12/02/14 Status: Orderedtacrolimus 1 mg oral capsule 1 mg=1 cap, PO, Q12H, # 180 cap, 0 Refill(s) Start Date: 11/30/14 Stop Date: 12/03/14 Status: DiscontinuedTylenol 650 mg, 2 tab, Route: PO, Drug form: TAB, Q6H, Dosing Weight 77.273, kg, PRN Pain Score 1-3, Start date: 12/03/14 0:18:00, Duration: 30 day, Stop date: 01/02 0:17:00 Notes: Do not exceed 4 gm/day. (Same as: Tylenol) Start Date: 12/03/14 Stop Date: 12/03/14 Status: DiscontinuedVitamin D PO, Every Other Day, 0 Refill(s) Start Date: 11/30/14 Stop Date: 12/03/14 Status: DiscontinuedVitamin D3 2000 intl units oral capsule 2,000 IntlUnit=1 cap, PO, Daily, # 100 cap, 3 Refill(s), given to patient Start Date: 12/03/14 Status: OrderedZofran 4 mg, 2 mL, Route: IV, Drug form: INJ, PRN, Dosing Weight 77.273, kg, PRN Nausea , Start date: 12/03/14 1:50:00, Duration: 30 day, Stop date: 01/02/15 1:49:00 Notes: (Same as: Zofran) MEDICATION WASTE Product Size: 4 mgProduct Wasted: ___ mg Start Date: 12/03/14 Stop Date: 12/03/14 Status: DiscontinuedZofran 4 mg, Route: IV, Q6H, Dosing Weight 77.273, kg, Start date: 12/03/14 6:00:00, Duration: 30 day, Stopdate: 01/02/15 0:00:00 Start Date: 12/03/14 Stop Date: 12/03/14 Status: Deleted Results ELECTROLYTES Most recent to oldest [Reference Range]: 1 2 3 Sodium Lvl [135-145 mEq/L] 143 mEq/L (12/03/14 1:02 AM) Potassium Lvl [3.5-5.1 mEq/L] 3.6 mEq/L (12/03/14 1:02 AM) Chloride Lvl [95-109 mEq/L] 112 mEq/L *HI* (12/03/14 1:02 AM) CO2 [24-32 mEq/L] 22 mEq/L *LOW* (12/03/14 1:02 AM) AGAP [10.0-20.0 mEq/L] 12.6 mEq/L (12/03/14 1:02 AM) CHEM PANEL Most recent to oldest [Reference Range]: 1 2 3 Creatinine Lvl [0.5-1.4 mg/dL] 1.4 mg/dL (12/03/14 1:02 AM) eGFR 44 mL/min/1.73m2 1 *NA* (12/03/14 1:02 AM) BUN [7-22 mg/dL] 18 mg/dL (12/03/14 1:02 AM) Glucose Lvl [70-99 mg/dL] 181 mg/dL 2 *HI* (12/03/14 1:02 AM) Calcium Lvl [8.5-10.5 mg/dL] 9.3 mg/dL (12/03/14 1:02 AM) Phosphorus [2.5-4.5 mg/dL] 2.2 mg/dL *LOW* (12/03/14 1:02 AM) Magnesium Lvl [1.8-2.4 mg/dL] 1.8 mg/dL (12/03/14 1:02 AM) 1Result Comment: The eGFR is calculated [...] values reflect the clinical guidelines of the [place] [employer].TOXICOLOGY Most recent to oldest [Reference Range]: 1 2 3 Tacrolimus Lvl [5.0-15.0 ng/mL] 6.4 ng/mL 6.3 ng/mL (12/03/14 7:55 AM) (12/03/14 1:02 AM) HEMATOLOGY Most recent to oldest 1 2 3 [Reference Range]: WBC [3.7-10.4 K/CMM] 7.2 K/CMM (12/03/14 2:11 AM) RBC [4.20-5.40 M/CMM] 4.69 M/CMM (12/03/14 2:11 AM) Hgb [12.0-16.0 g/dL] 13.1 g/dL 13.5 g/dL 12.5 g/dL (12/03/14 2:11 AM) (12/02/14 7:35 PM) (12/02/14 2:05 PM) Hct [36.0-48.0 %] 39.3 % 40.9 % 37.9 % (12/03/14 2:11 AM) (12/02/14 7:35 PM) (12/02/14 2:05 PM) MCV [80.0-98.0 fL] 83.7 fL (12/03/14 2:11 AM) MCH [27.0-31.0 pg] 27.8 pg (12/03/14 2:11 AM) MCHC [32.0-36.0 g/dL] 33.3 g/dL (12/03/14 2:11 AM) RDW [11.5-14.5 %] 13.6 % (12/03/14 2:11 AM) Platelet [133-450 K/CMM] 154 K/CMM (12/03/14 2:11 AM) MPV [7.4-10.4 fL] 10.0 fL (12/03/14 2:11 AM) Segs [45.0-75.0 %] 80.1 % *HI* (12/03/14 2:11 AM) Lymphocytes [20.0-40.0 %] 10.2 % *LOW* (12/03/14 2:11 AM) Monocytes [2.0-12.0 %] 7.7 % (12/03/14 2:11 AM) Eosinophils [0.0-4.0 %] 1.6 % (12/03/14 2:11 AM) Basophils [0.0-1.0 %] 0.4 % (12/03/14 2:11 AM) Segs-Bands # [1.5-8.1 K/CMM] 5.8 K/CMM (12/03/14 2:11 AM) Lymphocytes # [1.0-5.5 K/CMM] 0.7 K/CMM *LOW* (12/03/14 2:11 AM) Monocytes # [0.0-0.8 K/CMM] 0.6 K/CMM (12/03/14 2:11 AM) Eosinophils # [0.0-0.5 K/CMM] 0.1 K/CMM (12/03/14 2:11 AM) Immunizations No data available for this [...] Smoking Cessation Counseling No Assessment and Plan Extracted from: Title: Discharge Note Author: Silvia London NP Date: 12/03/14 Assessment/Plan DISCHARGE CONDITION: Good. Stable. The patient has been counseled on the following: Diet, activities, medications, special instructions and follow up. DISPOSITION: Discharged to home. DISCHARGE MEDICATIONS: Inpatient Bactrim SS 400 mg-80 mg oral tablet, 1 tab, PO, Daily carvedilol, 25 mg, 1 tab, PO, Q12H Colace 100 mg oral capsule, 100 mg, 1 cap, PO, BID, PRN Dextrose 50% Syringe, 12.5 gm, 25 mL, IVP, PRN, PRN Dextrose 50% Syringe, 25 gm, 50 mL, IVP, PRN, PRN glucagon, 1 mg, IM, PRN, PRN hydrALAZINE, 20 mg, 1 mL, IVP, Q4H, PRN insulin aspart, 8 unit, 0.08 mL, SUB-Q, TID-Before Meals, PRN insulin aspart, 10 unit, 0.1 mL, SUB-Q, TID-Before Meals, PRN insulin aspart, 6 unit, 0.06 mL, SUB-Q, TID-Before Meals, PRN insulin aspart, 4 unit, 0.04 mL, SUB-Q, TID-Before Meals, PRN insulin aspart, 2 unit, 0.02 mL, SUB-Q, TID-Before Meals, PRN leflunomide, 40 mg, 2 tab, PO, Daily Levemir FlexPen, 25 unit, 0.25 mL, SUB-Q, Daily Levemir FlexPen, 46 unit, 0.46 mL, SUB-Q, Bedtime magnesium oxide, 800 mg, 2 tab, PO, BID NIFEdipine 90 mg oral tablet, extended release, 90 mg, 1 tab, PO, Q12H NovoLOG, 14 unit, 0.14 mL, SUB-Q, TID-Before Meals Pepcid 20 mg oral tablet, 20 mg, 1 tab, PO, Daily predniSONE, 5 mg, 1 tab, PO, Daily Saline Flush 0.9%, 10 mL, IVP, PRN, PRN sodium bicarbonate, 650 mg, 1 tab, PO, TID tacrolimus, 1 mg, 1 cap, PO, Q12H Tylenol, 650 mg, 2 tab, PO, Q6H, PRN Zofran, 4 mg, 2 mL, IV, PRN, PRN Discharged Meds Bactrim SS oral tablet, 1 tab, PO, Daily biotin 1000 mcg oral tablet, 1000 microgram, 1 tab, PO, Daily carvedilol 25 mg oral tablet, 25 mg, 1 tab, PO, Q12H, 11 refills Colace 100 mg oral capsule, 100 mg, 1 cap, PO, BID, PRN everolimus 0.25 mg oral tablet, 0.5 mg, 2 tab, PO, Q12H, 3 refills K-Phos Neutral oral tablet, 1 tab, PO, BID leflunomide 20 mg oral tablet, 40 mg, 2 tab, PO, Daily Levemir FlexPen 100 units/mL subcutaneous solution, 26/42 units, SUB-Q, BID Lyrica 50 mg oral capsule, 50 mg, 1 cap, PO, BID magnesium oxide 400 mg oral tablet, 800 mg, 2 tab, PO, BID, 6 refills Nifediac CC 90 mg oral tablet, extended release, 90 mg, 1 tab, PO, Q12H NovoLOG FlexPen, Novolog 12/16/12 units, SUB-Q, TID-Before Meals Pepcid 20 mg oral tablet, 20 mg, 1 tab, PO, Daily predniSONE 10 mg oral tablet, 5 mg, 0.5 tab, PO, Daily Senna 8.6 mg oral tablet, 17.2 mg, 2 tab, PO, Bedtime simvastatin 20 mg oral tablet, 20 mg, 1 tab, PO, Bedtime, 6 refills simvastatin 20 mg oral tablet, 20 mg, 1 tab, PO, Bedtime, 1 refills sodium bicarbonate, 1300 mg, PO, TID tacrolimus 0.5 mg oral capsule, 0.5 mg, 1 cap, PO, Q12H, 3 refills Vitamin D3 2000 intl units oral capsule, 2000 IntlUnit, 1 cap, PO, Daily , 3 refills ACTIVITY: No heavy lifting greater than 10 lbs, Activity as tolerated. SPECIAL INSTRUCTIONS: May shower; no bathing. No driving within 6 hours of taking narcotics or sedatives. Notify doctor or return to ED if fever greater than 101, increased pain or inability to tolerate oral intake, bleeding or shortness of breath FOLLOW UP: Clinic visits: Renal Transplant clinic on Sunday for labs. All above instructions were discussed in detail with patient. All questions were address to her satisfaction Transplant Surgery Attending Addendum: I have seen and examined the patient. I have personally reviewed the patient's labs and imaging studies. 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 Extracted from: Title: Admission H & P Author: Salvador Mckeon MD Date: 12/02/14 Assessment/Plan Ordered: Admit / Condition Patient with rise in creatinine, concern for rejection. 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 Risks, benefits, and indications of procedure discussed with patient. Informed consent obtained. To OR. today.
--- OUTSIDE RECORDS SUMMARY | 2018-08-01 03:15 | XMS REPORT | Summary of Care ---
:1965 Author Organization [facility] Address [address] [place] [id number]- Encounter HQ Bob(FIN) [id number] Date(s): 12/22/14 - 01/20/[address] [address] [place] Discharge Disposition: Home Attending Physician: Shanae Toussaint MD Referring Physician: Shanae Toussaint MD Vital Signs Most recent to oldest [Reference Range]: 1 2 Height 162.56 cm 134.62 cm (01/19/15 11:25 AM) (12/22/14 3:13 PM) Most recent to oldest [Reference Range]: 1 2 Blood Pressure [90-140/60-90 mmHg] 122/70 mmHg 134/78 mmHg (01/19/15 11:25 AM) (12/22/14 3:13 PM) Most recent to oldest [Reference Range]: 1 2 Peripheral Pulse Rate [60-100 bpm] 76 bpm 60 bpm (01/19/15 11:25 AM) (12/22/14 3:13 PM) Most recent to oldest [Reference Range]: 1 2 Weight 84.233 kg 85 kg (01/19/15 11:25 AM) (12/22/14 3:13 PM) Most recent to oldest [Reference Range]: 1 2 Body Mass Index 31.88 m2 46.9 m2 (01/19/15 11:25 AM) (12/22/14 3:13 PM) Problem List Condition Effective Dates Status [...] Substance Reaction Severity Status NKDA Active Medications Contour Next Test Strips Contour Next Test Strips, Check glucose, TOP, QID, # 400 unit, Refill(s) 1, called to pharmacy Start Date: 12/24/14 Status: OrderedLevemir FlexPen 100 units/mL subcutaneous solution 26/44 units, SUB-Q, BID, # 63 mL, 1 Refill(s), called to pharmacy Start Date: 12/24/14 Status: OrderedNovoLOG FlexPen 100 units/mL subcutaneous solution Novolog units, SUB-Q, TID-Before Meals, # 40 mL, 1 Refill(s), called to pharmacy Start Date: 12/24/14 Status: Ordered Results No data available for [...]
--- OUTSIDE RECORDS SUMMARY | 2018-08-01 03:16 | XMS REPORT | Summary of Care ---
:1965 Author Organization [facility] Address [address] [place] [id number]- Encounter HQ Marychuyr_rikki(FIN) [id number] Date(s): 05/28/15 - 06/26/[address] [address]- [employer] Discharge Disposition: Home Attending Physician: Shanae Toussaint MD Referring Physician: Shanae Toussaint MD Vital Signs Most recent to oldest [Reference Range]: 1 Height 162.56 cm (05/28/15 9:12 AM) Blood Pressure [90-140/60-90 mmHg] 141/85 mmHg *HI* (05/28/15 9:12 AM) Peripheral Pulse Rate [60-100 bpm] 65 bpm (05/28/15 9:12 AM) Weight 85.227 kg (05/28/15 9:12 AM) Body Mass Index 32.25 m2 (05/28/15 9:12 AM) Problem List Condition Effective Dates Status [...] alcohol concerns: No. Smoking Status Never smoker; Type: Cigarettes; Started at age: 0.0; Stopped at age: 1; Exposure to Tobacco Smoke None; Cigarette Smoking Last 365 Days No; Reg Smoking Cessation Counseling No Assessment and Plan No data available for this section
--- OUTSIDE RECORDS SUMMARY | 2018-08-01 03:16 | XMS REPORT | Summary of Care ---
:1965 Author Organization [facility] Address [address] [place] [phone]- Encounter HQ Encntr_alias(FIN) [id number] Date(s): 03/12/15 - 03/12/15 [facility] [address] [place] [address] Professional Services provided by [facility] [place] [address]- Discharge Diagnosis: Numbness and tingling of right arm Discharge Disposition: Home Attending Physician: Sayda Mckinley MD Vital Signs Most recent to oldest [Reference Range]: 1 2 3 Temperature Oral [96.4-99.1 DegF] 98.0 DegF (03/12/15 10:07 AM) Most recent to oldest 1 2 3 [Reference Range]: Blood Pressure [90-140/60-90 125/72 mmHg 122/66 mmHg 157/94 mmHg mmHg] (03/12/15 1:03 PM) (03/12/15 11:30 AM) *HI* (03/12/15 10:07 AM) Most recent to oldest 1 2 3 [Reference Range]: Respiratory Rate [14-20 18 BRMIN 18 BRMIN 18 BRMIN BRMIN] (03/12/15 1:03 PM) (03/12/15 11:30 AM) (03/12/15 10:07 AM) Most recent to oldest [Reference Range]: 1 2 3 Peripheral Pulse Rate [60-100 bpm] 56 bpm *LOW* (03/12/15 10:07 AM) Problem List Condition Effective Dates Status [...]
--- OUTSIDE RECORDS SUMMARY | 2018-08-01 03:16 | XMS REPORT | Summary of Care ---
:1965 Author Organization [facility] Address [address] [place] [phone]- Encounter HQ July_rikki(FIN) [id number] Date(s): 02/19/15 - 03/10/[address] [address]- [employer] Discharge Disposition: Home Attending Physician: Shanae Toussaint MD Referring Physician: Shanae Toussaint MD Vital Signs Most recent to oldest [Reference Range]: 1 Height 162.56 cm (02/19/15 8:23 AM) Most recent to oldest [Reference Range]: 1 Blood Pressure [90-140/60-90 mmHg] 136/82 mmHg (02/19/15 8:23 AM) Most recent to oldest [Reference Range]: 1 Peripheral Pulse Rate [60-100 bpm] 60 bpm (02/19/15 8:23 AM) Most recent to oldest [Reference Range]: 1 Weight 83.239 kg (02/19/15 8:23 AM) Most recent to oldest [Reference Range]: 1 Body Mass Index 31.5 m2 (02/19/15 8:23 AM) Problem List Condition Effective Dates Status [...]
--- OUTSIDE RECORDS SUMMARY | 2018-08-01 03:16 | XMS REPORT | Summary of Care ---
:1965 Author Organization [facility] [place] Address [address] [place], [place] [address]- Encounter HQ Bob(FIN) [id number] Date(s): 02/04/15 - 03/05/15 [facility] [place] [address] [facility] [address] [place] [address] Discharge Disposition: Home Attending Physician: Hema Donahue MD Referring Physician: Hema Donahue MD Vital Signs No data available for [...] Substance Reaction Severity Status NKDA Active Medications magnesium oxide 400 mg oral tablet 800 mg=2 tab, PO, BID, # 120 tab, 11 Refill(s), Pharmacy: [facility] [id number] Start Date: 02/19/15 Stop Date: 02/14/16 Status: Ordered Results No data available for [...]
--- OUTSIDE RECORDS SUMMARY | 2018-08-01 03:16 | XMS REPORT | Summary of Care ---
:1965 Author Organization [facility] Address [address] [place] [phone]- Encounter HQ Bob(LEANA) [phone] Date(s): 04/23/15 - 05/22/[address] [address] [employer] Discharge Disposition: Home Attending Physician: Shanae Toussaint MD Referring Physician: Shanae Toussaint MD Vital Signs Most recent to oldest [Reference Range]: 1 Height 162.56 cm (05/14/15 8:57 AM) Blood Pressure [90-140/60-90 mmHg] 128/80 mmHg (05/14/15 8:57 AM) Weight 84.091 kg (05/14/15 8:57 AM) Body Mass Index 31.82 m2 (05/14/15 8:57 AM) Problem List Condition Effective Dates Status [...] Medications Levemir FlexPen 100 units/mL subcutaneous solution 28 units qam and 32 units qpm, SUB-Q, BID, # 54 mL, 1 Refill(s), called to pharmacy Start Date: 05/14/15 Status: OrderedNovoLOG FlexPen , SUB-Q, TID-Before Meals, 0 Refill(s) Start Date: 05/14/15 Status: Ordered Results SPECIAL CHEMISTRY Most recent to oldest [Reference Range]: 1 Hgb A1C [<=5.6 %] 7.9 % *HI* (05/14/15 10:20 AM) Immunizations No data available for this [...]
--- OUTSIDE RECORDS SUMMARY | 2018-08-01 03:16 | XMS REPORT | Summary of Care ---
:1965 Author Organization [facility] Address [address] [place], [place] [address]- Encounter HQ July_rikki(FIN) [id number] Date(s): 03/12/15 - 04/10/15 [facility] [address] [place] [address]- [employer] Discharge Disposition: Home Attending Physician: Shanae Toussaint MD Vital Signs Most recent to oldest [Reference Range]: 1 2 Height 162.56 cm 162.56 cm (04/02/15 8:51 AM) (03/12/15 8:13 AM) Blood Pressure [90-140/60-90 mmHg] 142/80 mmHg 118/66 mmHg *HI* (03/12/15 8:13 AM) (04/02/15 8:51 AM) Peripheral Pulse Rate [60-100 bpm] 72 bpm 72 bpm (04/02/15 8:51 AM) (03/12/15 8:13 AM) Weight 83.693 kg 83.75 kg (04/02/15 8:51 AM) (03/12/15 8:13 AM) Body Mass Index 31.67 m2 31.69 m2 (04/02/15 8:51 AM) (03/12/15 8:13 AM) Problem List Condition Effective Dates Status [...] Substance Reaction Severity Status NKDA Active Medications [place] for Injection Syringe Misc/Other use to administer insulin five times daily UD, MISC, 5X Day, verbal drm - BD Dania, # 450 ea, 1 Refill(s), called to pharmacy Start Date: 04/09/15 Status: Ordered Results No data available for [...]
--- OUTSIDE RECORDS SUMMARY | 2018-08-01 03:16 | XMS REPORT | Summary of Care ---
:1965 Author Organization [facility] Address [address] [place], [place] [address]- Encounter HQ Bob(FIN) [id number] Date(s): 03/12/15 - 04/10/15 [facility] [address] [place] [address] [address] [place] [address] Discharge Disposition: Home Attending Physician: Shanae Toussaint [...] Levemir FlexPen 100 units/mL subcutaneous solution 28 AM/24PM, SUB-Q, BID, # 3 mL, 0 Refill(s), other Start Date: 04/05/15 Status: Ordered Results No data available for [...]
--- OUTSIDE RECORDS SUMMARY | 2018-08-01 03:16 | XMS REPORT | Summary of Care ---
:1965 Author Organization [facility] Address [address] [place] [id number]- Encounter HQ Encntr_rikki(FIN) [id number] Date(s): 01/29/15 - 02/03/15 [facility] [address] [place] [address] Professional Services provided by [facility] [place] [address]- Discharge Disposition: Home Attending Physician: Salvador Mckeon MD Admitting Physician: Hema Donahue MD Referring Physician: Mayco Moser MD Vital Signs Most recent to oldest [Reference Range]: 1 2 3 Height 162.56 cm 162.56 cm (01/29/15 10:58 PM) (01/29/15 5:11 PM) Most recent to oldest [Reference Range]: 1 2 3 Current Weight 83.21 kg 84.005 kg (02/02/15 5:13 AM) (02/01/15 4:59 AM) Most recent to oldest 1 2 3 [Reference Range]: Temperature Oral [96.4-99.1 98.6 DegF 98.3 DegF 98.2 DegF DegF] (02/03/15 3:32 PM) (02/03/15 8:01 AM) (02/03/15 4:36 AM) Most recent to oldest 1 2 3 [Reference Range]: Blood Pressure [90-140/60-90 119/73 mmHg 124/70 mmHg 132/77 mmHg mmHg] (02/03/15 3:32 PM) (02/03/15 8:01 AM) (02/03/15 4:36 AM) Most recent to oldest 1 2 3 [Reference Range]: Respiratory Rate [14-20 BRMIN] 18 BRMIN 17 BRMIN 17 BRMIN (02/03/15 3:32 PM) (02/03/15 8:01 AM) (02/03/15 4:36 AM) Most recent to oldest 1 2 3 [Reference Range]: Peripheral Pulse Rate [60-100 58 bpm 61 bpm 59 bpm bpm] *LOW* (02/03/15 8:01 AM) *LOW* (02/03/15 3:32 PM) (02/03/15 4:36 AM) Most recent to oldest [Reference Range]: 1 2 3 Weight 81.818 kg 81.818 kg (01/29/15 10:58 PM) (01/29/15 5:11 PM) Most recent to oldest [Reference Range]: 1 2 3 Body Mass Index 30.96 m2 30.96 m2 (01/29/15 10:58 PM) (01/29/15 5:11 PM) Problem List Condition Effective Dates Status [...] Substance Reaction Severity Status NKDA Active Medications acetaminophen 650 mg, Route: PO, Drug form: TAB, ONCE, Dosing Weight 81.818, kg, Start date: 01/29/15 17:31:00, Stop date: 01/29/15 17:31:00 Start Date: 01/29/15 Stop Date: 01/29/15 Status: Completedazithromycin 500 mg oral tablet 500 mg, 2 tab, Route: PO, Drug form: TAB, Daily, Dosing Weight 81.818, kg, Start date: 01/30/15 3:08:00, Duration: 3 day, Stop date: 02/01/15 9:00:00 Notes: Take 1 hour before or 2 hours after meals.(Same As: Zithromax) Start Date: 01/30/15 Stop Date: 02/01/15 Status: Completedcarvedilol 25 mg, 1 tab, Route: PO, Drug form: TAB, Q12H, Dosing Weight 81.818, kg, Start date: 01/31/15 6:02:00, Duration: 30 day, Stop date: 03/01/15 21:00:00 Notes: Give with food. (Same As: Coreg) Start Date: 01/31/15 Stop Date: 02/03/15 Status: Discontinuedcarvedilol 25 mg oral tablet 25 mg=1 tab, PO, Q12H, # 60 tab, 3 Refill(s), Pharmacy: [id number], v42.0 Start Date: 02/03/15 Stop Date: 06/03/15 Status: Orderedcefepime 1 gm, Route: IVPB, ONCE, Dosing Weight 81.818, kg, Priority: STAT, Start date: 01/29/15 17:49:00, Stop date: 01/29/15 17:49:00 Start Date: 01/29/15 Stop Date: 01/29/15 Status: Completedcefepime 1 gm, Route: IVPB, Drug form: INJ, [id number], Dosing Weight 81.818, kg, (CrCl 10 - 29 ml/min), Start date: 01/30/15 18:00:00, Duration: 30 day, Stop date: 18:00:00 Notes: (Same As: Maxipime) MEDICATION WASTE Product Size: 1000 mgProduct Wasted: ___ mg Start Date: 01/30/15 Stop Date: 02/01/15 Status: DiscontinuedDextrose 50% Syringe 12.5 gm, 25 mL, Route: IVP, Drug Form: INJ, Dosing Weight 81.818, kg, PRN, PRN Blood Glucose Results, Start date: 01/30/15 8:03:00, Duration: 30 day, Stop date : 03/01/15 8:02:00 Start Date: 01/30/15 Stop Date: 02/03/15 Status: DiscontinuedDextrose 50% Syringe 25 gm, 50 mL, Route: IVP, Drug Form: INJ, Dosing Weight 81.818, kg, PRN, PRN Blood Glucose Results, Start date: 01/30/15 8:03:00, Duration: 30 day, Stop date : 03/01/15 8:02:00 Start Date: 01/30/15 Stop Date: 02/03/15 Status: Discontinuedglucagon 1 mg, Route: IM, Drug form: PDR/INJ, PRN, Dosing Weight 81.818, kg, PRN Blood Glucose Results, Startdate: 01/30/15 8:03:00, Duration: 30 day, Stop date: 03/01 8:02:00 Start Date: 01/30/15 Stop Date: 02/03/15 Status: Discontinuedheparin 5,000 unit, 1 mL, Route: SUB-Q, Drug form: INJ, Q12H, Dosing Weight 81.818, kg, Start date: 159:00:00, Duration: 30 day, Stop date: 02/28/15 21:00:00 Notes: porcine heparin Start Date: 01/30/15 Stop Date: 02/03/15 Status: Discontinuedhydrocortisone 100 mg, 2 mL, Route: IV, Drug form: PDR/INJ, Q8H, Dosing Weight 81.818, kg, Start date: 01/30/15 0:00:00, Stop date: 01/30/15 8:00:00 Notes: (Same as: Kerenu-CORTEF) Start Date: 01/30/15 Stop Date: 01/30/15 Status: Completedinsulin aspart 12 unit, 0.12 mL, Route: SUB-Q, Drug form: SOLN, TID-Before Meals, Dosing Weight 81.818, kg, Start date: 01/30/15 16:30:00, Stop date: 03/01/15 11:30:00 Notes: Roll in palms of hands gently; Do not shake vigorously. (Same as: NovoLOG)"single patient use only" Stable for 28 days at room temperature.Expires in days from Date Start Date: 01/30/15 Stop Date: 02/02/15 Status: Discontinuedinsulin aspart 5 unit, 0.05 mL, Route: SUB-Q, Drug form: SOLN, TID-Before Meals, Dosing Weight 81.818, kg, Start date: 02/02/15 17:00:00, Duration: 30 day, Stop date: 16:30:00 Notes: Roll in palms of hands gently; Do not shake vigorously. (Same as: NovoLOG)"single patient use only" Stable for 28 days at room temperature.Expires in days from Date Start Date: 02/02/15 Stop Date: 02/03/15 Status: Discontinuedinsulin aspart 5 unit, 0.05 mL, Route: SUB-Q, Drug form: SOLN, TID-Before Meals, Dosing Weight 81.818, kg, Start date: 01/30/15 11:30:00, Duration: 30 day, Stop date: 7:30:00 Notes: Roll in palms of hands gently; Do not shake vigorously. (Same as: NovoLOG)"single patient use only" Stable for 28 days at room temperature.Expires in days from Date Start Date: 01/30/15 Stop Date: 01/30/15 Status: Discontinuedinsulin aspart 1 unit, 0.01 mL, Route: SUB-Q, Drug form: SOLN, TID-Before Meals, Dosing Weight 81.818, kg, PRN Blood Glucose Results, Start date: 01/30/15 8:03:00, Duration: 30 day, Stop date: 03/01/15 8:02:00 Notes: Roll in palms of hands gently; Do not shake vigorously. (Same as: NovoLOG)"single patient use only" Stable for 28 days at room temperature.Expires in days from Date Start Date: 01/30/15 Stop Date: 02/03/15 Status: Discontinuedinsulin aspart 2 unit, 0.02 mL, Route: SUB-Q, Drug form: SOLN, TID-Before Meals, Dosing Weight 81.818, kg, PRN Blood Glucose Results, Start date: 01/30/15 8:03:00, Duration: 30 day, Stop date: 03/01/15 8:02:00 Notes: Roll in palms of hands gently; Do not shake vigorously. (Same as: NovoLOG)"single patient use only" Stable for 28 days at room temperature.Expires in days from Date Start Date: 01/30/15 Stop Date: 02/03/15 Status: Discontinuedinsulin aspart 3 unit, 0.03 mL, Route: SUB-Q, Drug form: SOLN, TID-Before Meals, Dosing Weight 81.818, kg, PRN Blood Glucose Results, Start date: 01/30/15 8:03:00, Duration: 30 day, Stop date: 03/01/15 8:02:00 Notes: Roll in palms of hands gently; Do not shake vigorously. (Same as: NovoLOG)"single patient use only" Stable for 28 days at room temperature.Expires in days from Date Start Date: 01/30/15 Stop Date: 02/03/15 Status: Discontinuedinsulin aspart 5 unit, 0.05 mL, Route: SUB-Q, Drug form: SOLN, TID-Before Meals, Dosing Weight 81.818, kg, PRN Blood Glucose Results, Start date: 01/30/15 8:03:00, Duration: 30 day, Stop date: 03/01/15 8:02:00 Notes: Roll in palms of hands gently; Do not shake vigorously. (Same as: NovoLOG)"single patient use only" Stable for 28 days at room temperature.Expires in days from Date Start Date: 01/30/15 Stop Date: 02/03/15 Status: Discontinuedinsulin aspart 4 unit, 0.04 mL, Route: SUB-Q, Drug form: SOLN, TID-Before Meals, Dosing Weight 81.818, kg, PRN Blood Glucose Results, Start date: 01/30/15 8:03:00, Duration: 30 day, Stop date: 03/01/15 8:02:00 Notes: Roll in palms of hands gently; Do not shake vigorously. (Same as: NovoLOG)"single patient use only" Stable for 28 days at room temperature.Expires in days from Date Start Date: 01/30/15 Stop Date: 02/03/15 Status: Discontinuedinsulin aspart 9 unit, SUB-Q, TID-Before Meals, 0 Refill(s) Start Date: 02/03/15 Stop Date: 02/03/15 Status: Discontinuedinsulin aspart 9 unit, 0.09 mL, Route: SUB-Q, Drug form: SOLN, TID-Before Meals, Dosing Weight 81.818, kg, Start date: 02/03/15 11:30:00, Duration: 30 day, Stop date: 7:30:00 Notes: Roll in palms of hands gently; Do not shake vigorously. (Same as: NovoLOG)"single patient use only" Stable for 28 days at room temperature.Expires in days from Date Start Date: 02/03/15 Stop Date: 02/03/15 Status: DiscontinuedInsulin Aspart 100 unit/ml - (Medium CD) 9 unit, SUB-Q, TID-Before Meals, # 10 mL, 3 Refill(s), Pharmacy: [facility] [id number] Start Date: 02/03/15 Stop Date: 02/03/15 Status: Discontinuedinsulin detemir 25 unit, 0.25 mL, Route: SUB-Q, Drug form: INJ, Before Breakfast, Dosing Weight 81.818, kg, Start date: 01/31/15 7:30:00, Stop date: 03/01/15 7:30:00 Notes: Same as LevemirDo not hold insulin without contacting prescriber " single patient use only" Start Date: 01/31/15 Stop Date: 02/03/15 Status: Discontinuedinsulin detemir 20 unit, SUB-Q, Before Dinner, 0 Refill(s) Start Date: 02/03/15 Stop Date: 02/03/15 Status: Deletedinsulin detemir 15 unit, 0.15 mL, Route: SUB-Q, Drug form: INJ, BID, Dosing Weight 81.818, kg, Start date: 01/30/15 9:00:00, Duration: 30 day, Stop date: 02/28/15 17:00:00 Notes: Same as LevemirDo not hold insulin without contacting prescriber " single patient use only" Start Date: 01/30/15 Stop Date: 01/30/15 Status: Discontinuedinsulin detemir 20 unit, 0.2 mL, Route: SUB-Q, Drug form: INJ, Before Dinner, Dosing Weight 81.818, kg, Start date: 02/03/15 16:30:00, Stop date: 03/04/15 16:30:00 Notes: Same as LevemirDo not hold insulin without contacting prescriber " single patient use only" Start Date: 02/03/15 Stop Date: 02/03/15 Status: Discontinuedinsulin detemir 25 unit, 0.25 mL, Route: SUB-Q, Drug form: INJ, Before Dinner, Dosing Weight 81.818, kg, Start date:01/30/15 16:30:00, Stop date: 02/28/15 16:30:00 Notes: Same as LevemirDo not hold insulin without contacting prescriber " single patient use only" Start Date: 01/30/15 Stop Date: 02/03/15 Status: Discontinuedinsulin detemir 100 units/mL subcutaneous solution 25 unit, SUB-Q, Before Breakfast, 0 Refill(s) Start Date: 02/03/15 Stop Date: 02/03/15 Status: Deletedinsulin detemir 100 units/mL subcutaneous solution 25 unit, SUB-Q, Before Breakfast, # 10 mL, 0 Refill(s), Pharmacy: [facility] [id number] Start Date: 02/03/15 Stop Date: 02/03/15 Status: DiscontinuedK-Phos Neutral oral tablet 250 mg, 1 tab, Route: PO, Drug Form: TAB, Dosing Weight 81.818, kg, Q12H, Start date: 01/30/15 9:00:00, Duration: 30 day, Stop date: 02/28/15 21:00:00 Notes: Non-Fomrulary Drug.(Same as: K-Phos) Start Date: 01/30/15 Stop Date: 01/30/15 Status: DiscontinuedK-Phos Neutral oral tablet 250 mg, PO, Q12H, 8a & 8p, 0 Refill(s) Special Instructions: 8a & 8p Start Date: 01/30/15 Stop Date: 02/03/15 Status: DiscontinuedLactated Ringers (Bolus) IV 500 mL, 500 ml/hr, Infuse Over: 1 hr, Route: IV, 500, Drug form: INJ, ONCE, Priority: STAT, Dosing Weight 81.818 kg, Start date: 01/29/15 23:06:00, Duration : 1 doses or times, Stop date: 01/29/15 23:06:00 Start Date: 01/29/15 Stop Date: 01/30/15 Status: Completedleflunomide 40 mg, 2 tab, Route: PO, Drug form: TAB, Daily, Dosing Weight 81.818, kg, Start date: 01/31/15 9:00:00, Duration: 30 day, Stop date: 03/01/15 9:00:00 Notes: Non-Formulary Drug (Same as:Arava) Start Date: 01/31/15 Stop Date: 02/03/15 Status: Discontinuedleflunomide 20 mg oral tablet 40 mg=2 tab, PO, Daily, # 60 tab, 3 Refill(s), Pharmacy: [id number] Start Date: 02/03/15 Stop Date: 06/03/15 Status: OrderedLevemir 100 units/mL 20 unit, SUB-Q, Bedtime, # 10 mL, 3 Refill(s), Pharmacy: [facility] [id number] Start Date: 02/03/15 Stop Date: 02/03/15 Status: DiscontinuedLevemir FlexPen 20 unit, Route: SUB-Q, Drug form: INJ, Daily, Dosing Weight 81.818, kg, Start date: 01/30/15 9:00:00, Duration: 30 day, Stop date: 02/28/15 9:00:00 Start Date: 01/30/15 Stop Date: 01/30/15 Status: CanceledLevemir FlexPen 100 units/mL subcutaneous solution See Special Instructions, SUB-Q, BID, Inject 25 units before breakfast and inject 20 units at bedtime, # 1 pen(s), 0 Refill(s), Pharmacy: [facility] [id number] Special Instructions: Inject 25 units before breakfast and inject 20 units at bedtime Start Date: 02/03/15 Status: Orderedlevofloxacin 750 mg, 1 tab, Route: PO, Drug form: TAB, [id number], Dosing Weight 81.818, kg, For CrCl=20 -49ml/min, Start date: 02/01/15 14:00:00, Duration: 30 day, Stop date: 03/01/15 14:00:00 Notes: Do not give w/antacids, dairy pdt & mineralsTake 1 hr before or 2 hr after dairy products Start Date: 02/01/15 Stop Date: 02/03/15 Status: Discontinuedlevofloxacin 750 mg oral tablet 750 mg=1 tab, PO, [id number], 0 Refill(s) Start Date: 02/03/15 Stop Date: 02/03/15 Status: Deletedlevofloxacin 750 mg oral tablet 750 mg=1 tab, PO, [id number], # 5 tab, 0 Refill(s), Pharmacy: [facility] [id number] Start Date: 02/03/15 Stop Date: 02/12/15 Status: OrderedLyrica 50 mg, 1 cap, Route: PO, Drug form: CAP, BID, Dosing Weight 81.818, kg, Start date: 01/30/15 9:00:00, Duration: 30 day, Stop date: 02/28/15 17:00:00 Notes: Same as Lyrica Start Date: 01/30/15 Stop Date: 02/03/15 Status: DiscontinuedLyrica 50 mg oral capsule 50 mg=1 cap, PO, BID, # 60 cap, 2 Refill(s) Start Date: 02/03/15 Stop Date: 05/04/15 Status: Orderedmagnesium oxide 800 mg, 2 tab, Route: PO, Drug form: TAB, BID, Dosing Weight 81.818, kg, Start date: 01/30/15 9:00:00, Duration: 30 day, Stop date: 02/28/15 17:00:00 Notes: (Same as: Mag-Ox 400)Magnesium oxide [id number] elemental magnesiumDose= ____mg magnesium oxide (___mg elemental magnesium) Start Date: 01/30/15 Stop Date: 02/03/15 Status: Discontinuedmagnesium oxide 400 mg oral tablet 800 mg=2 tab, PO, BID, # 120 tab, 6 Refill(s), Pharmacy: [facility] [id number] Start Date: 02/03/15 Status: OrderedNifediac CC 90 mg, 1 tab, Route: PO, Drug form: ERTAB, Q12H, Dosing Weight 81.818, kg, Start date: 01/31/15 9:00:00, Duration: 30 day, Stop date: 03/01/15 21:00:00 Notes: (Same as:Adalat CC, Procardia XL) Give on empty stomach. Take 1 hour before or 2 hours aftermeal; "Avoid grapefruit and grapefruit juice". Do not crush Start Date: 01/31/15 Stop Date: 02/03/15 Status: DiscontinuedNifediac CC 90 mg oral tablet, extended release 90 mg=1 tab, PO, Q12H, # 60 tab, 5 Refill(s), Pharmacy: [facility] [id number] Start Date: 02/03/15 Stop Date: 08/02/15 Status: OrderedNovoLOG FlexPen 100 units/mL subcutaneous solution 9 unit, SUB-Q, TID-Before Meals, # 10 mL, 5 Refill(s), Pharmacy: [facility] [id number] Start Date: 02/03/15 Stop Date: 08/02/15 Status: OrderedNS 1,000 mL 1,000 mL, Rate: 100 ml/hr, Infuse over: 10 hr, Route: IV, Dosing Weight 81.818 kg, Total Volume: 1,000, Start date: 01/30/15 10:01:00, Stop date: 03/01/15 10: 00:00 Start Date: 01/30/15 Stop Date: 01/31/15 Status: DiscontinuedPepcid 20 mg oral tablet 20 mg=1 tab, PO, Daily, # 30 tab, 3 Refill(s), Pharmacy: [facility] [id number] Start Date: 02/03/15 Stop Date: 06/03/15 Status: OrderedPepcid 20 mg oral tablet 20 mg, 1 tab, Route: PO, Drug form: TAB, Daily, Dosing Weight 81.818, kg, Start date: 01/30/15 9:00:00, Duration: 30 day, Stop date: 02/28/15 9:00:00 Notes: (Same as: Pepcid) Start Date: 01/30/15 Stop Date: 02/03/15 Status: Discontinuedpotassium chloride 40 mEq, 2 tab, Route: PO, Drug form: ERTAB, ONCE, Dosing Weight 81.818, kg, Electrolyte replacement,Start date: 01/31/15 7:36:00, Stop date: 01/31/15 7:36: 00 Notes: (Same as: K-Dur 20)"Do Not Crush" With food and full glass of water Start Date: 01/31/15 Stop Date: 01/31/15 Status: Completedpotassium chloride 20 mEq, 1 tab, Route: PO, Drug form: ERTAB, ONCE, Dosing Weight 81.818, kg, Priority: NOW, Start date: 02/02/15 8:56:00, Stop date: 02/02/15 8:56:00 Notes: (Same as: K-Dur 20)"Do Not Crush" With food and full glass of water Start Date: 02/02/15 Stop Date: 02/02/15 Status: Completedpotassium phosphate + Sodium Chloride 0.9% IV 250 mL 18 mmol, 6 mL, Route: IVPB, ONCE, Dosing Weight 81.818, kg, Start date: 7:35:00, Stop date:01/31/15 7:35:00 Notes: (Same as: K Phosphate.) 1 mMol phoshate has 1.47 mEq potassium Infuse over 4 hours Start Date: 01/31/15 Stop Date: 01/31/15 Status: CompletedpredniSONE 5 mg, 1 tab, Route: PO, Drug form: TAB, Daily, Dosing Weight 81.818, kg, Start date: 01/30/15 9:00:00, Duration: 30 day, Stop date: 02/28/15 9:00:00 Notes: Take with food. Start Date: 01/30/15 Stop Date: 02/03/15 Status: DiscontinuedpredniSONE 5 mg oral tablet 5 mg=1 tab, PO, Daily, 0 Refill(s) Start Date: 02/03/15 Stop Date: 02/03/15 Status: DeletedpredniSONE 5 mg oral tablet 5 mg=1 tab, PO, Daily, X 30 day, # 30 tab, 3 Refill(s), Pharmacy: [facility] [id number] Start Date: 02/03/15 Stop Date: 06/03/15 Status: OrderedSaline Flush 0.9% 10 mL, Route: IVP, Drug Form: INJ, Dosing Weight 81.818, kg, PRN, PRN Line Flush , Start date: 01/29/15 17:31:00, Duration: 30 day, Stop date: 02/28/15 17:30:00 Notes: (Same as: BD Posiflush) Start Date: 01/29/15 Stop Date: 02/03/15 Status: DiscontinuedSaline Flush 0.9% 10 ml, Route: IVP, Drug Form: INJ, Dosing Weight 81.818, kg, Q12H, Start date: 01/30/15 9:00:00, Duration: 30 day, Stop date: 02/28/15 21:00:00 Notes: (Same as: BD Posiflush) Start Date: 01/30/15 Stop Date: 02/03/15 Status: DiscontinuedSaline Flush 0.9% 10 ml, Route: IVP, Drug Form: INJ, Dosing Weight 81.818, kg, PRN, PRN Line Flush , Start date: 01/29/15 23:35:00, Duration: 30 day, Stop date: 02/28/15 23:34:00 Notes: (Same as: BD Posiflush) Start Date: 01/29/15 Stop Date: 02/03/15 Status: Discontinuedsimvastatin 20 mg oral tablet 20 mg=1 tab, PO, Bedtime, # 30 tab, 6 Refill(s), Pharmacy: [facility] [id number] Start Date: 02/03/15 Stop Date: 09/01/15 Status: Orderedsodium bicarbonate 650 mg oral tablet 1,300 mg, 2 tab, Route: PO, Drug form: TAB, TID, Dosing Weight 81.818, kg, Start date: 01/30/15 9:00:00, Duration: 30 day, Stop date: 02/28/15 17:00:00 Notes: "Dissolve tablet in a glass of water prior to oral administration. STOMACH WARNING: To avoidserious injury, do not take until tablet is completely dissolved. It is very important not to take this product when overly full from food or drink." Start Date: 01/30/15 Stop Date: 02/03/15 Status: DiscontinuedSodium Chloride 0.9% (Bolus) IV 1,000 mL, 1,000 ml/hr, Infuse Over: 1 hr, Route: IV, ONCE, Priority: STAT, Dosing Weight 81.818 kg, Start date: 01/29/15 17:31:00, Duration: 1 doses or times, Stop date: 01/29/15 17:31:00 Start Date: 01/29/15 Stop Date: 01/29/15 Status: Completedtacrolimus 0.5 mg, 1 cap, Route: PO, Drug form: CAP, Q12H, Dosing Weight 81.818, kg, Start date: 01/30/15 8:00:00, Duration: 30 day, Stop date: 02/28/15 20:00:00 Notes: Avoid grapefruit and grapefruit juice.(Same As: Prograf) Start Date: 01/30/15 Stop Date: 02/03/15 Status: Discontinuedtacrolimus 0.5 mg, 1 cap, Route: PO, Drug form: CAP, ONCE, Dosing Weight 81.818, kg, Priority: NOW, Start date:02/03/15 10:25:00, Stop date: 02/03/15 10:25:00 Notes: Avoid grapefruit and grapefruit juice.(Same As: Prograf) Start Date: 02/03/15 Stop Date: 02/03/15 Status: Completedtacrolimus 1 mg, 1 cap, Route: PO, Drug form: CAP, [id number], Dosing Weight 81.818, kg, Start date: 02/03/15 20:00:00, Duration: 30 day, Stop date: 03/05/15 8:00:00 Notes: Avoid grapefruit and grapefruit juice.(Same As: Prograf) Start Date: 02/03/15 Stop Date: 02/03/15 Status: Canceledtacrolimus 0.5 mg oral capsule 1 mg=2 cap, PO, Q12H, # 120 cap, 3 Refill(s), Pharmacy: [facility] [id number] Start Date: 02/03/15 Stop Date: 06/03/15 Status: Orderedtacrolimus 1 mg oral capsule 1 mg=1 cap, PO, [id number], 0 Refill(s) Start Date: 02/03/15 Stop Date: 02/03/15 Status: Discontinuedtramadol 50 mg, 1 tab, Route: PO, Drug form: TAB, Q4H, Dosing Weight 81.818, kg, PRN Pain Score 4-6, Start date: 01/31/15 8:39:00, Duration: 30 day, Stop date: 03/02 8:38:00 Notes: Not to exceed 400mg/day. (Same As: Ultram) Start Date: 01/31/15 Stop Date: 02/03/15 Status: Discontinuedtramadol 50 mg oral tablet 50 mg=1 tab, PO, Q4H, PRN Pain Score 4-6, 0 Refill(s) Start Date: 02/03/15 Stop Date: 02/03/15 Status: DiscontinuedTylenol 650 mg, 2 tab, Route: PO, Drug form: TAB, ONCE, Dosing Weight 81.818, kg, PRN For Temp > 100.4 F, Start date: 01/30/15 0:30:00, Stop date: 03/01/15 0:29:00 Notes: Do not exceed 4 gm/day. (Same as: Tylenol) Start Date: 01/30/15 Stop Date: 01/30/15 Status: CompletedTylenol 325 mg, Route: PO, ONCE, Dosing Weight 81.818, kg, Start date: 01/29/15 19:47:00 , Stop date: 01/29/15 19:47:00 Start Date: 01/29/15 Stop Date: 01/29/15 Status: CompletedTylenol 650 mg, 2 tab, Route: PO, Drug form: TAB, ONCE, Dosing Weight 81.818, kg, Start date: 01/30/15 21:34:00, Stop date: 01/30/15 21:34:00 Notes: Do not exceed 4 gm/day. (Same as: Tylenol) Start Date: 01/30/15 Stop Date: 01/30/15 Status: CompletedTylenol 650 mg, 20.3 mL, Route: PO, Drug form: LIQ, ONCE, Dosing Weight 81.818, kg, Start date: 01/30/15 21:18:00, Stop date: 01/30/15 21:18:00 Start Date: 01/30/15 Stop Date: 01/30/15 Status: Discontinuedvancomycin + Sodium Chloride 0.9% IV 250 mL 1.75 gm, Route: IV, ONCE, Dosing Weight 81.818, kg, Start date: 01/29/15 17:49: 00, Stop date: 01/29/15 17:49:00 Notes: TIME CRITICAL MEDICATION(Same As: Vancocin)Infusion rate< 1000 mg: infuse over 1 [id number] - 1500 mg: infuse over 1.5 hoursVancomycin FOR IV SET [id number] - 2000 mg: infuse over 2 hours> 2001 mg: infuse over 2.5 hours MEDICATION WASTE Product Size: 1000 mgProduct Wasted: _250__ mg Start Date: 01/29/15 Stop Date: 01/29/15 Status: Completed Results ELECTROLYTES Most recent to oldest 1 2 3 [Reference Range]: Sodium Lvl [135-145 mEq/L] 145 mEq/L 142 mEq/L 144 mEq/L (02/03/15 5:24 AM) (02/02/15 12:09 PM) (02/01/15 5:05 AM) Potassium Lvl [3.5-5.1 3.6 mEq/L 3.8 mEq/L 3.4 mEq/L mEq/L] (02/03/15 5:24 AM) (02/02/15 12:09 PM) *LOW* (02/01/15 5:05 AM) Chloride Lvl [95-109 mEq/L] 110 mEq/L 111 mEq/L 112 mEq/L *HI* *HI* *HI* (02/03/15 5:24 AM) (02/02/15 12:09 PM) (02/01/15 5:05 AM) CO2 [24-32 mEq/L] 26 mEq/L 23 mEq/L 24 mEq/L (02/03/15 5:24 AM) *LOW* (02/01/15 5:05 AM) (02/02/15 12:09 PM) AGAP [10.0-20.0 mEq/L] 12.6 mEq/L 11.8 mEq/L 11.4 mEq/L (02/03/15 5:24 AM) (02/02/15 12:09 PM) (02/01/15 5:05 AM) CHEM PANEL Most recent to oldest 1 2 3 [Reference Range]: Creatinine Lvl [0.5-1.4 mg/dL] 1.7 mg/dL 1.6 mg/dL 1.7 mg/dL *HI* *HI* *HI* (02/03/15 5:24 AM) (02/02/15 12:09 PM) (02/01/15 5:05 AM) eGFR 35 mL/min/1.73m2 1 38 mL/min/1.73m2 2 35 mL/min/1.73m2 3 *NA* *NA* *NA* (02/03/15:24 AM) (02/02/15 12:09 PM) (02/01/15 5:05 AM) BUN [7-22 mg/dL] 19 mg/dL 20 mg/dL 20 mg/dL (02/03/15:24 AM) (02/02/15 12:09 PM) (02/01/15 5:05 AM) Glucose Lvl [70-99 mg/dL] 59 mg/dL 85 mg/dL 79 mg/dL *LOW* (02/02/15 12:09 PM) (02/01/15 5:05 AM) (02/03/15 5:24 AM) Calcium Lvl [8.5-10.5 mg/dL] 9.3 mg/dL 9.0 mg/dL 8.8 mg/dL (02/03/15 5:24 AM) (02/02/15 12:09 PM) (02/01/15 5:05 AM) Phosphorus [2.5-4.5 mg/dL] 2.8 mg/dL 2.4 mg/dL 2.1 mg/dL (02/03/15 5:24 AM) *LOW* *LOW* (02/01/15 5:05 AM) (01/31/15 5:42 AM) Magnesium Lvl [1.8-2.4 mg/dL] 2.2 mg/dL 2.1 mg/dL 1.9 mg/dL (02/03/15 5:24 AM) (02/01/15 5:05 AM) (01/31/15 5:42 AM) Lactic Acid Lvl [0.5-2.2 1.1 mMol/L mMol/L] (8/21/15 5:45 PM) Lactic Acid WB [0.5-2.2 1.2 mmol/L mmol/L] (01/29/15 5:45 PM) Procalcitonin Lvl [0.00-0.10 0.57 ng/mL <0.05 ng/mL ng/mL] *HI* (01/29/15 5:45 PM) (01/30/15 5:54 AM) 1Result Comment: The eGFR is calculated [...] eGFR should be multiplied by the estimated BMI.SPECIAL CHEMISTRY Most recent to oldest [Reference Range]: 1 2 3 Hgb A1C [<=5.6 %] 5.9 % 6.1 % *HI* *HI* (02/03/15 5:24 AM) (01/30/15 5:54 AM) PARATHYROID PROFILE Most recent to oldest [Reference Range]: 1 2 3 Ca Ion WB [1.05-1.25 mMol/L] 1.17 mMol/L (01/30/15 5:54 AM) Ca Norm WB [1.05-1.25 mMol/L] 1.14 mMol/L (01/30/15 5:54 AM) TOXICOLOGY Most recent to oldest [Reference Range]: 1 2 3 Tacrolimus Lvl [5.0-15.0 ng/mL] <2.0 ng/mL <2.0 ng/mL *LOW* *LOW* (02/03/15 5:24 AM) (01/30/15 5:54 AM) Everolimus Lvl [3.0-8.0 ng/mL] 3.2 ng/mL (01/30/15 5:54 AM) URINE AND STOOL Most recent to oldest [Reference Range]: 1 2 3 UA Turbidity [Clear] Clear (01/29/15 7:15 PM) UA Color [Yellow] Yellow *NA* (01/29/15 7:15 PM) UA pH [5.0-8.0] 7.0 (01/29/15 7:15 PM) UA Spec Grav [<=1.030] 1.010 (01/29/15 7:15 PM) UA Glucose [Negative] Negative (01/29/15 7:15 PM) UA Blood [Negative] Trace *ABN* (01/29/15 7:15 PM) UA Ketones [Negative] Negative *NA* (01/29/15 7:15 PM) UA Protein [Negative] Trace *ABN* (01/29/15 7:15 PM) UA Urobilinogen [0.1-1.0 EU/dL] 0.2 EU/dL (01/29/15 7:15 PM) UA Bili [Negative] Negative *NA* (01/29/15 7:15 PM) UA Leuk Est [Negative] Negative (01/29/15 7:15 PM) UA Nitrite [Negative] Negative (01/29/15 7:15 PM) UA WBC [None Seen /HPF] 6-10 /HPF *ABN* (01/29/15 7:15 PM) UA RBC [0-2 /HPF] 0-2 /HPF (01/29/15 7:15 PM) UA Bacteria [None Seen /HPF] Occasional /HPF (01/29/15 7:15 PM) UA Sq Epi [Few /LPF] Few /LPF (01/29/15 7:15 PM) UA Mucus [None Seen] None Seen (01/29/15 7:15 PM) HEMATOLOGY Most recent to oldest 1 2 3 [Reference Range]: WBC [3.7-10.4 K/CMM] 3.6 K/CMM 5.0 K/CMM 11.4 K/CMM *LOW* (02/01/15 5:05 AM) *HI* (02/03/15 5:24 AM) (01/31/15 5:42 AM) RBC [4.20-5.40 M/CMM] 3.77 M/CMM 3.48 M/CMM 3.80 M/CMM *LOW* *LOW* *LOW* (02/03/15 5:24 AM) (02/01/15 5:05 AM) (01/31/15 5:42 AM) Hgb [12.0-16.0 g/dL] 9.7 g/dL 9.1 g/dL 9.9 g/dL *LOW* *LOW* *LOW* (02/03/15 5:24 AM) (02/01/15 5:05 AM) (01/31/15 5:42 AM) Hct [36.0-48.0 %] 29.9 % 27.4 % 29.5 % *LOW* *LOW* *LOW* (02/03/15 5:24 AM) (02/01/15 5:05 AM) (01/31/15 5:42 AM) MCV [80.0-98.0 fL] 79.3 fL 78.9 fL 77.5 fL *LOW* *LOW* *LOW* (02/03/15:24 AM) (02/01/15 5:05 AM) (01/31/15 5:42 AM) MCH [27.0-31.0 pg] 25.8 pg 26.1 pg 26.1 pg *LOW* *LOW* *LOW* (02/03/15:24 AM) (02/01/15 5:05 AM) (01/31/15 5:42 AM) MCHC [32.0-36.0 g/dL] 32.5 g/dL 33.1 g/dL 33.7 g/dL (02/03/15 5:24 AM) (02/01/15 5:05 AM) (01/31/15 5:42 AM) RDW [11.5-14.5 %] 13.2 % 13.2 % 13.2 % (02/03/15:24 AM) (02/01/15 5:05 AM) (01/31/15:42 AM) Platelet [133-450 K/CMM] 153 K/CMM 143 K/CMM 156 K/CMM (02/03/15 5:24 AM) (02/01/15 5:05 AM) (01/31/15 5:42 AM) MPV [7.4-10.4 fL] 9.4 fL 9.7 fL 9.3 fL (02/03/15:24 AM) (02/01/15 5:05 AM) (01/31/15:42 AM) Segs [45.0-75.0 %] 59.5 % 80.9 % 86.0 % (02/03/15:24 AM) *HI* *HI* (01/31/15:42 AM) (01/30/15 5:54 AM) Bands [0.0-11.0 %] 8.0 % (01/30/15 5:54 AM) Lymphocytes [20.0-40.0 %] 19.2 % 8.6 % 2.0 % *LOW* *LOW* *LOW* (02/03/15 5:24 AM) (01/31/15 5:42 AM) (01/30/15 5:54 AM) Atypical Lymphs [<=0.0 %] 0.0 % (01/30/15 5:54 AM) Monocytes [2.0-12.0 %] 15.1 % 8.6 % 4.0 % *HI* (01/31/15 5:42 AM) (01/30/15 5:54 AM) (02/03/15 5:24 AM) Eosinophils [0.0-4.0 %] 5.4 % 1.4 % 0.6 % *HI* (01/31/15 5:42 AM) (01/29/15 5:45 PM) (02/03/15 5:24 AM) Basophils [0.0-1.0 %] 0.8 % 0.5 % 0.6 % (02/03/15 5:24 AM) (01/31/15 5:42 AM) (01/29/15 5:45 PM) Segs-Bands # [1.5-8.1 K/CMM] 2.1 K/CMM 9.2 K/CMM 11.2 K/CMM (02/03/15 5:24 AM) *HI* *HI* (01/31/15 5:42 AM) (01/30/15 5:54 AM) Lymphocytes # [1.0-5.5 0.7 K/CMM 1.0 K/CMM 0.2 K/CMM K/CMM] *LOW* (01/31/15 5:42 AM) *LOW* (02/03/15 5:24 AM) (01/30/15 5:54 AM) Monocytes # [0.0-0.8 K/CMM] 0.5 K/CMM 1.0 K/CMM 0.5 K/CMM (02/03/15 5:24 AM) *HI* (01/30/15 5:54 AM) (01/31/15 5:42 AM) Eosinophils # [0.0-0.5 0.2 K/CMM 0.2 K/CMM 0.1 K/CMM K/CMM] (02/03/15 5:24 AM) (01/31/15 5:42 AM) (01/29/15 5:45 PM) Basophils # [0.0-0.2 K/CMM] 0.1 K/CMM 0.1 K/CMM (01/31/15 5:42 AM) (01/29/15 5:45 PM) Microcyte [None Seen] 1+ 1+ 1+ *ABN* *ABN* *ABN* (01/31/15 5:42 AM) (01/30/15 5:54 AM) (01/29/15 5:45 PM) Plt Morph Normal (01/30/15 5:54 AM) PT [12.0-14.7 seconds] 13.3 seconds (01/29/15 5:45 PM) INR [0.85-1.17] 1.01 (01/29/15 5:45 PM) PTT [22.9-35.8 seconds] 31.8 seconds (01/29/15 5:45 PM) MOLECULAR DIAGNOSTIC Most recent to oldest [Reference Range]: 1 2 3 CMV PCR Qnt [Negative] Negative (02/01/15 1:10 PM) CMV PCR Qnt (log) <2.4 log *NA* (02/01/15 1:10 PM) Source BK Virus PCR Qnt Plasma Plasma *NA* *NA* (02/02/15 5:23 PM) (02/01/15 1:10 PM) BK Virus PCR Qnt 230865 copies/mL 4 211318 copies/mL 5 *NA* *NA* (02/02/15 5:23 PM) (02/01/15 1:10 PM) BK Virus PCR Qnt (log) 5.0 log 5.1 log *NA* *NA* (02/02/15 5:23 PM) (02/01/15 1:10 PM) 4Result Comment: "Significant Findings called to Mallika Zeng at 02/03/2015 16:56 by [email or web address] Back [email or web address]."5Result Comment: "Significant Findings called to Mallika Zeng at 02/03/2015 16:56 by [email or web address] Back OK."BACTERIAL - SEROLOGY Most recent to oldest [Reference Range]: 1 2 3 MRSA by PCR Negative (01/30/15 5:54 AM) Immunizations No data available for this [...] No Assessment and Plan Extracted from: Title: Renal Txn Consult Author: Sp Harrington MD Date: 02/03/15 Renal Txn Consult Progress Note - Daily SUBJECTIVE No complaints Medications: 01/31/15 NIFEdipine (Nifediac CC) 90 mg PO Q12H 01/31/15 carvedilol 25 mg PO Q12H 01/30/15 famotidine (Pepcid 20 mg oral tablet) 20 mg PO Daily 01/30/15 heparin 5,000 unit SUB-Q Q12H 02/02/15 insulin aspart 5 unit SUB-Q TID-Before Meals 01/31/15 insulin detemir 25 unit SUB-Q Before Breakfast 01/30/15 insulin detemir 25 unit SUB-Q Before Dinner 01/31/15 leflunomide 40 mg PO Daily 02/01/15 levofloxacin 750 mg PO [id number] 01/30/15 magnesium oxide 800 mg PO BID 01/30/15 predniSONE 5 mg PO Daily 01/30/15 pregabalin (Lyrica) 50 mg PO BID 01/30/15 sodium bicarbonate (sodium bicarbonate 650 mg oral tablet) 1,300 mg PO TID 01/30/15 sodium chloride (Saline Flush 0.9%) 10 ml IVP Q12H 01/30/15 tacrolimus 0.5 mg PO Q12H One Time Meds: 02/02/15 (Completed) potassium chloride 20 mEq PO ONCE Continuous Infusions: None OBJECTIVE Vitals Tmp(F) Pulse BP RR SpO2 FIO2 02/03 04:36 98.2 59 132/77 17 93 --- 02/03 00:10 98.3 69 138/86 18 97 --- 02/02 20:25 97.7 69 124/77 18 94 --- 02/02 15:45 98.2 63 138/88 18 94 --- 02/02 11:41 98 75 127/79 18 93 --- 24 Hr Tmax: 98.9F (37.17c) at 02/02 07:46 Vital Signs are the last 5 in the past 48 hours. Date Wt(kg) Wt(lb) Ht(cm) Ht(in) Method 02/02 83.21 183.06 Measured 02/01 84.00 184.81 Measured 01/29 (initial) 81.82 180.00 Measured 01/29 162.56 64.00 Stated I&O Record In Out Bal 02/02 24hr Tot 1280 2200 -920 02/01 24hr Tot 1100 1600 -500 EXAM General - resting comfortably in bed HEENT - normocephalic/atraumatic, PERRLA, EOMI, supple neck, no significant adenopathy CVS - normal S1, S2, no murmurs, no gallops Chest - CTA bilaterally Abdomen - +BS, soft, nontender, distended secondary to obese body habitus, no masses or organomegaly Extremities - peripheral pulses normal, no pedal edema, no tremors to outstretched hands, Left UE AV fistula without thrill or audible bruit Skin - normal coloration and turgor, no rashes, warm and dry with normal texture, scars well healed Neuro - no gross focal deficits appreciated 24hr Labs 02/02 2116 Glucose POC 168 H 02/02 1536 Glucose POC 170 H 02/02 1209 Glucose Lvl 85 BUN 20 Creatinine Lvl 1.6 H Sodium Lvl 142 Potassium Lvl 3.8 Chloride Lvl 111 H CO2 23 L AGAP 11.8 Calcium Lvl 9.0 eGFR 38 02/02 1140 Glucose POC 51 L 02/02 0851 Glucose POC 143 H 02/02 0746 Glucose POC 52 L 02/01 1310 CMV PCR Qnt Negative CMV PCR Qnt (log) <2.4 ASSESSMENT: The patient is a 49-year-old female with past medical history as noted above who presented to the hospital for a febrile illness in a transplant patient. Her associated symptoms include non-productive cough with left basilar opacity on chest imaging. CT scan shows atelectasis but cannot rule out an early infectious process. Transferred to [address] [place] [address] yesterday with improved symptomatology. Everolimus o n hold, BK viral load pending, and transplant infectious disease consulted. PROBLEM LIST: 1. Febrile illness, likely viral pneumonia. 2. Status post living unrelated renal transplant in 2013. 3. Acute kidney injury vs worsening chronic kidney disease secondary to chronic BK nephropathy. 4. History of acute antibody mediated rejection in 2013, status post treatment with therapeutic plasma exchange. 5. Hypertension. 6. Diabetes mellitus. 7. HLA mismatch , CPRA class 1 0%/class 2 0%. No pretransplant donor specific antibodies. CMV positive/positive, EBV positive/positive (most recent DSA 11/11/2014 CW7, MFI 9,947). RECOMMENDATIONS: 1. Nonoliguric acute kidney injury: Resolving as creatinine improved to 1.7 today s/p fluid challenge, remains at baseline. Continue to monitor with strict I/Os and daily labs. Please withhold any nephrotoxins. F/u Bk PCR; CMV PCR negative. 2. Hypertension: Resume nifedipine 90 mg bid and carvedilol 25 mg bid. - BP well controlled. 3. Immunosuppression: Discharge on tacro 06/11, prednisone 5 mg, and hold everolimus. BK nephropathy: continue leflunomide 40 mg daily. Continue current tacro dosing, will not increase to goal trough levels. Immunosuppression decreased for treatment of BK viremia/ nephropathy. Awaiting BK viremia levels prior to making changes to immunosuppression- will follow up in outpatient transplant clinic. 4. ID: S/p vanc, cefepime in the ER prior to admission. completed azithromycin, changed cefepime to levaquin per ID recommendations discharge with levaquin (day 11/22) to complete 14 day total Urine culture positive for Morganelli morganii <10,000 cfu/ml on 12/09/14, repeat cultures negative to date. UA with pyruia 6-10/hpf but negative LE and nitrites, not likely culprit. 5. Endo: Diabetes management - insulin detemir 25 units qAM, 20 units qPM - insulin aspart 9 units tid premeal - continue ADA diabetic diet - will follow up with wellness clinic outpatient. 6. Prophylaxis: DVT ppx with heparin. Recommend bowel regimen with colace, miralax to prevent constipation. Thank you for this interesting consult. Sp Harrington MD Combined Adult/Pediatric Nephrology Fellow PGY-6 [id number] TEACHING ATTESTATION Addendum by Jose Antonio Song MD on ATTENDING NOTE 02/04/2015 08:45 I saw and examined this complex patient with multiple medical problems on , reviewed the laboratory and radiographic data, and agree with this note. Jose Antonio Song MD, FACP, FASN, FCCM Extracted from: Title: Transplant ID consultaiton note Author: Diamond Spear MD Date: Infectious disease Consult Note: Patient Room: [place] [address], 9WJ PEDRO CORTEZ 49y (: 1965 ) F Attending: Salvador Mckeon MD Service: Renal Transplant Service DATE OF CONSULT: 02/01/2015 REFERRING PHYSICIAN: Dr. Mckeon CONSULTING PHYSICIAN: Dr. Spear REASON FOR CONSULTATION: fever CHIEF COMPLAINT: HISTORY OF PRESENT ILLNESS: This pt is a 49 yo Hisp female with history of ESRD s/p living donor renal transplant from in 2012, bk viremia who initially presented to ED for fever, chills, cough, and dysuria since last nigh t. Patient was febrile to 103 at home and 103.9 upon arrival in ED. She was given 1L fluids, tylenol, vancomycin, and cefepime. CXR showed possible LLL pneumonia. After she was admitted, she was given vancomycin, cefepime and azithromycin. She has been improving and trasnfered out from ICU to regular floor. ID was consulted for antibiotics management. When she came to our hospital, she also had urinary frequency, and dysuria, which also improved. Denied any sick contacts. Date of Transplant 05/23/2013 CMV/EBV +/+, +/+ Pre-transplant Screening, 10/01/2012 RPR non-reactive CMV reactive EBV positive VZV positive HIV neg HSV I +, II - QF neg Hep BsAb positive, Hep C neg, Strongy neg PAST MEDICAL HISTORY: Significant for hypertension. She was 20 years old when she was diagnosed and end-stage renal disease. PAST SURGICAL HISTORY: Significant for 3 C-sections, as well as a left upper extremity AV fistula placed in 2011. FAMILY HISTORY: Significant for mother having diabetes. She has 6 siblings and most of them are in [place]. One of them has diabetes. She has a 19-year-old daughter and a 27-year-old son who are healthy. Social history She is from [place], came about 30 years ago. The last visit was about a year ago. Raymundoadolfo living in [place]. No pets, no jobs. ALLERGIES: No known drug allergies. Medications (28) Active Scheduled Meds (15): 01/31/15 NIFEdipine (Nifediac CC) 90 mg PO Q12H 01/31/15 carvedilol 25 mg PO Q12H 01/30/15 famotidine (Pepcid 20 mg oral tablet) 20 mg PO Daily 01/30/15 heparin 5,000 unit SUB-Q Q12H 01/30/15 insulin aspart 12 unit SUB-Q TID-Before Meals 01/31/15 insulin detemir 25 unit SUB-Q Before Breakfast 01/30/15 insulin detemir 25 unit SUB-Q Before Dinner 01/31/15 leflunomide 40 mg PO Daily 02/01/15 levofloxacin 750 mg PO [id number] 01/30/15 magnesium oxide 800 mg PO BID 01/30/15 predniSONE 5 mg PO Daily 01/30/15 pregabalin (Lyrica) 50 mg PO BID 01/30/15 sodium bicarbonate (sodium bicarbonate 650 mg oral tablet) 1,300 mg PO TID 01/30/15 sodium chloride (Saline Flush 0.9%) 10 ml IVP Q12H 01/30/15 tacrolimus 0.5 mg PO Q12H Unscheduled Meds: None PRN Meds (11): 01/30/15 Dextrose 50% in Water IV (Dextrose 50% Syringe) 12.5 gm IVP PRN 01/30/15 Dextrose 50% in Water IV (Dextrose 50% Syringe) 25 gm IVP PRN 01/30/15 glucagon 1 mg IM PRN 01/30/15 insulin aspart 1 unit SUB-Q TID-Before Meals 01/30/15 insulin aspart 2 unit SUB-Q TID-Before Meals 01/30/15 insulin aspart 3 unit SUB-Q TID-Before Meals 01/30/15 insulin aspart 4 unit SUB-Q TID-Before Meals 01/30/15 insulin aspart 5 unit SUB-Q TID-Before Meals 01/29/15 sodium chloride (Saline Flush 0.9%) 10 mL IVP PRN 01/29/15 sodium chloride (Saline Flush 0.9%) 10 ml IVP PRN 01/31/15 tramadol 50 mg PO Q4H One Time Meds (2): 01/31/15 (Completed) potassium chloride 40 mEq PO ONCE 01/31/15 (Completed) potassium phosphate + Sodium Chloride 0.9% IV 250 mL 18 mmol IVPB ONCE 64 ml/hr Continuous Infusions: None REVIEW OF SYSTEMS: Constitutional: negative for fever, fatigue Eyes: negative for blurry vision, discharge Ears, nose, mouth, throat, and face: negative for sore throat, or runny nose Respiratory: negative for cough Cardiovascular: negative for chest pain Gastrointestinal: negative for nausea, vomiting, constipation and diarrhea Genitourinary:negative for dysurea, urenary frequency Musculoskeletal:negative for myalgia or arthralgia Neurological: negative for weakness PHYSICAL EXAMINATION: Vital Signs - Reviewed Vitals Tmp(F) Pulse BP RR SpO2 FIO2 02/01 15:45 97.4 60 133/76 18 95 --- 02/01 12:12 ---- --- ----- -- 94 --- 02/01 11:18 98.7 72 135/81 18 93 --- 02/01 08:06 99.3 72 144/72 18 94 --- 02/01 05:47 99.1 72 129/75 18 96 --- 24 Hr Tmax: 99.3F (37.39c) at 02/01 08:06 Vital Signs are the last 5 in the past 48 hours. Date Wt(kg) Wt(lb) Ht(cm) Ht(in) Method 02/01 84.00 184.81 Measured 01/29 (initial) 81.82 180.00 Measured 01/29 162.56 64.00 Stated General- _ Gen: NAD and A&Ox3 HEENT Eye: PERRLA, not anemic, not icteric Mouth: No erythema, no thrush Neck: Supple, no LAD Lungs: CTA w/o rale Heart: RRR w/o murmur Abdomen: Soft and flat, no tenderness, no rebound and gurard Extremities: No C/C/E DATA: 24hr Labs 02/01 1650 Glucose POC 169 H 02/01 1121 Glucose POC 89 02/01 0809 Glucose POC 71 02/01 0505 Magnesium Lvl 2.1 Phosphorus 2.4 L Glucose Lvl 79 BUN 20 Creatinine Lvl 1.7 H Sodium Lvl 144 Potassium Lvl 3.4 L Chloride Lvl 112 H CO2 24 AGAP 11.4 Calcium Lvl 8.8 eGFR 35 WBC 5.0 RBC 3.48 L Hgb 9.1 L Hct 27.4 L MCV 78.9 L MCH 26.1 L MCHC 33.1 RDW 13.2 Platelet 143 MPV 9.7 01/31 2015 Glucose POC 158 H Current Abx Cefepime 01/29- D4 Azithro 01/29-02/01 Vancomyicn 1dose on 01/29 ASSESSMENT AND PLAN: 49 yo F w/ hx of ESRD d/t HTN s/p living donor renal transplant from in 2012 had fever. Possible source of fever is either UTI or pneumonai. She had mild both sympotms with some suggestions of infecitons. But they are not definite. Given the significant fever, and her symptoms, we would like to treat both possibilty. Recommendation Discontinue cefepime, and switch to levoflocacin 750mg po q48hrs Thank you very much for your consult. The case was discussed with Dr. Spear (ID Attending) We will follow this patient with you. If you have any questions, please call transplant ID cell phone [phone] or my personal pager [phone].. Kael Talamantes PGY-6 Transplant Infectious Disease Fellow I have seen and evaluated this patient with the ID transplant fellow, Dr. Talamantes. I agree with his assessment and plan detailed in his note above. Beatriz Spear MD Extracted from: Title: TSICU Admission H&P * Author: Shirley Schmitt Date: 01/30/15 Patient: PEDRO CORTEZ Age: 49 years Sex: Female : 1965 Associated Diagnoses: None Author: Shirley Schmitt Basic Information Present at bedside: Significant other. Source of history: Self. Referral source: Emergency department. History limitation: Language barrier. Advance directive: Full code. History of Present Illness Mrs. Cortez is a 49 yo Hisp female with history of ESRD s/p living donor renal transplant from in 2012, bk viremia who initially presented to ED for fever, chills, cough, and dysuria since last night. Patient was febrile to 103 at home and 103.9 upon arrival in ED. She was given 1L fluids, tylenol, vancomycin, and cefepime. CXR showed possible LLL pneumonia. She reports taking all her prescri bed immunosuppresion as prescibed, last dose was this morning. She otherwise denies recent travel or sick contacts. She was last admitted on 12/02 for kidney biopsy due to concern for rejection vs BK nep hropathy. 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 She otherwise denies chest pain, SOB, abdominal pain, pyuria or hematuria, or back pain. Review of Systems Constitutional: Fever, Chills, Fatigue. Eye: Negative. Ear/Nose/Mouth/Throat: Negative. Respiratory: Cough. Cardiovascular: Negative. Gastrointestinal: Negative. Genitourinary: Dysuria. Hematology/Lymphatics: Negative. Endocrine: Negative. Immunologic: Negative. Musculoskeletal: Negative. Integumentary: Negative. Neurologic: Negative. Psychiatric: Negative. Health Status Allergies: Allergies (1) Active Reaction NKDA None Documented Current medications: Medications (6) Active Scheduled: (4) azithromycin 250 mg TAB 500 mg 2 tab, PO, Daily heparin 5000 unit/1 ml INJ VL 5,000 unit 1 mL, SUB-Q, Q12H hydrocortisone sod suc 100mg INJ VL 100 mg 2 mL, IV, Q8H sodium chloride 0.9% 10 ml flush syr BD 10 ml, IVP, Q12H Continuous: (0) PRN: (2) sodium chloride 0.9% 10 ml flush syr BD 10 mL, IVP, PRN sodium chloride 0.9% 10 ml flush syr BD 10 ml, IVP, PRN Problem list: No qualifying data available Histories Past Medical History: Resolved ESRD (end stage renal disease) (585.6): Resolved. History of renal transplant (1183156638): Resolved. Pancreas ([id number]): Resolved. Chronic kidney disease (CKD) (585.9): Resolved. BK virus ([id number]): Resolved. CMV (078.5): Resolved. HTN - Hypertension ([id number]): Resolved. DM (diabetes mellitus) type II controlled with renal manifestation (250.40): Resolved. Hyperlipidemia (272.4): Resolved. Polycythemia (289.0): Resolved. Acute rejection of renal transplant - grade III ([id number]): Resolved. Family History: High blood pressure Brother Sister Mother Type 2 diabetes mellitus Sister Gestational diabetes Mother Renal disease Sister Procedure history: Kidney transplantation ([id number]) on 05/23/2013 at 48 Years. Renal biopsy ([id number]). Creation of upper limb arteriovenous fistula ([id number]). section ([id number]). Comments: 11/30/2014 12:57 - Kirstin Jackson RN x3 Social History Social & Psychosocial Habits Alcohol 11/30/2014 Previous treatment: None Has alcohol use interfered with work or home life? No Do you ever drink more than intended? No Has anyone been hurt or at risk by your drinking? No Concerns about alcohol use in household: No Employment/School 05/30/2013 Hazardous equipment operation: No Exercise 05/30/2013 Exercise type: Walking Sexual 05/30/2013 Sexual Partner With STD No 05/30/2013 Sexual Partner With STD No History of sexual abuse: No Substance Abuse 05/30/2013 Previous treatment: None IV drug use: No Has drug use interfered with your work or home life? No Ready to change: No Concerns about substance abuse in household: No Drug Cessation Education Provided No Tobacco 01/29/2015 Use: Never smoker Started at age: 0.0 Years Stopped at age: 1 Years Exposure to Tobacco Smoke None Cigarette Smoking Last 365 Days No Reg Smoking Cessation Counseling No . Physical Examination VS/Measurements Vital Signs (last 24 hrs) Last Charted Temp Oral H 101.7DegF (JAN 29 23:01) Heart Rate Apical 82 bpm (JAN 29:01) Resp Rate H 25BRMIN (JAN 29:01) SBP H 151mmHg (JAN 29 22:50) DBP 77 mmHg (JAN 29:50) Weight 81.818 kg (JAN 29 22:58) Height 162.56 cm (JAN 29 22:58) BMI 30.96 (JAN 29 22:58) General: Alert and oriented, Mild distress. Eye: Pupils are equal, round and reactive to light, Extraocular movements are intact, Normal conjunctiva. HENT: Normocephalic, Normal hearing. Neck: Supple, Non-tender, No jugular venous distention. Respiratory: Lungs are clear to auscultation, Breath sounds are equal, Symmetrical chest wall expansion, tachypneic. Cardiovascular: Normal rate, Regular rhythm, No murmur, No edema. Gastrointestinal: Soft, Non-tender, Non-distended, Normal bowel sounds. Genitourinary: No costovertebral angle tenderness, no suprapubic tenderness. Musculoskeletal Normal range of motion. Normal strength. No deformity. Integumentary: Warm, Dry. Neurologic: Alert, Oriented, No focal deficits. Cognition and Speech: Oriented, Speech clear and coherent. Psychiatric: Cooperative, Appropriate mood & affect. Review / Management Results review: Labs (Last four charted values) WBC 9.1 (JAN 29) Hgb L 10.5 (JAN 29) Hct L 32.1 (JAN 29) Plt 145 (JAN 29) Na 141 (JAN 29) K L 3.2 (JAN 29) CO2 L 23 (JAN 29) Cl 106 (JAN 29) Cr H 2.0 (JAN 29) BUN 21 (JAN 29) Glucose Random 96 (JAN 29) Ca 9.3 (JAN 29) PT 13.3 (JAN 29) INR 1.01 (JAN 29) PTT 31.8 (JAN 29) . CXR 01/29: 1. Left basilar lung opacity may represent atelectasis versus pneumonia. Two- view chest radiograph can be obtained for further evaluation. 2. Probable small left pleural effusion. Impression and Plan Impression: - Community acquired pneumonia - UTI - Sepsis secondary to CAP vs UTI - DIOMEDES secondary to pre-renal vs BK nephropathy vs acute rejection vs ATN - s/p living unrelated renal transplant 2012 - immunosupression therapy Plan: Neuro: A&Ox3, can start home dose lyrica for neuropathic pain, tylenol for fever and chills CV: hemodynamically stable, hold HTN meds in the setting sepsis, hold statins Pulm: comfortable on room air, ambulatory GI/Hep: regular diet, bowel regimen as needed Endo: start levemir at 1/2 home dose and start insulin sliding sliding scale Renal: Urine culture pending. Will give hydrocortisone IV 100mg x 2 doses. Hold everlimus for possible pneumonitis. Continue current dose of leflunomide, prednisone, tacrolimus per transplant surgery re ccs. Repalce electrolytes as needed along with PO sodium bicarb Heme: no issues ID: Started on PO azithromycin for atypicals, continue IV cefepime. Urine and blood cultures pending MSK: encourage ambulation Prophx: SQ heparin for DVT prophylaxis, PPIs Lines: PIVs Discussed assessment and plan with Dr. Rae Witt, [place] PCCM Fellow. Addendum by Leticia Baron MD on 01/30/2015 ICU Attending 20:23 I have seen examined and discussed patient with ICU team at bedside and agree with findings an dplan as outlined by Wayne Schmitt above. Patient with cough nonproductive for 4 days with fever. 2 small chi ldren at home. Source of fever may be viral with normal procalcitonin but cannot exclude bacterial causes. LLL opacity however unclear etilogy as present in may. CT ordered. Few WBC in urine pe nding cultures. Encouraged fluid intake. IV fluids held by transplant with Cre 2.0 near baseline. Other as above. Addendum by Leticia Baron MD on 01/30/2015 Exam with normal mentation. Currently 20:25 afebrile with stable hemodynamics. Chest with decreased BS LLL. Benign abd. RRR. No edema. No rashes or skin breakdown.
--- OUTSIDE RECORDS SUMMARY | 2018-08-01 03:17 | XMS REPORT | Summary of Care ---
:1965 Author Organization [facility] Address [address] [place] [phone]- Encounter [facility] July_rikki(FIN) [phone] Date(s): 09/21/15 - 10/20/[address] [address]- Serviceful Discharge Disposition: Home Attending Physician: Shanae Toussaint MD Referring Physician: Shanae Toussaint MD Vital Signs Most recent to oldest [Reference Range]: 1 Height 162.56 cm (09/21/15 2:39 PM) Blood Pressure [90-140/60-90 mmHg] 126/76 mmHg (09/21/15 2:39 PM) Peripheral Pulse Rate [60-100 bpm] 59 bpm *LOW* (09/21/15 2:39 PM) Weight 87.727 kg (09/21/15 2:39 PM) Body Mass Index 33.2 m2 (09/21/15 2:39 PM) Problem List Condition Effective Dates Status [...]
--- OUTSIDE RECORDS SUMMARY | 2018-08-01 03:17 | XMS REPORT | Summary of Care ---
:1965 Author Organization [facility] Address [address] [place] [address]- Encounter [facility] July_rikki(FIN) [phone] Date(s): 01/27/16 - 02/25/16 [facility] [address] [place] [address]- [place] Discharge Disposition: Home or Self Care Attending Physician: Shanae Toussaint MD Referring Physician: Shanae Toussaint MD Vital Signs Most recent to oldest [Reference Range]: 1 2 Height 162.56 cm 162.56 cm (02/18/16 3:26 PM) (01/27/16 3:52 PM) Blood Pressure [90-140/60-90 mmHg] 114/68 mmHg 123/75 mmHg (02/18/16 3:26 PM) (01/27/16 3:52 PM) Peripheral Pulse Rate [60-100 bpm] 58 bpm *LOW* (02/18/16 3:26 PM) Weight 87.273 kg 89.091 kg (02/18/16 3:26 PM) (01/27/16 3:52 PM) Body Mass Index 33.03 m2 33.71 m2 (02/18/16 3:26 PM) (01/27/16 3:52 PM) Problem List Condition Effective Dates Status [...] Medications Levemir FlexPen 100 units/mL subcutaneous solution See Instructions, 34 units qAM and 32 units qPM SUB-Q, # 60 mL, 1 Refill(s), called to pharmacy Start Date: 02/25/16 Status: OrderedNovoLOG FlexPen 100 units/mL subcutaneous solution units, SUB-Q, TID-Before Meals, # 3 mL, 1 Refill(s), called to pharmacy Start Date: 02/22/16 Status: Ordered Results SPECIAL CHEMISTRY Most recent to oldest [Reference Range]: 1 Hgb A1C [<=5.6 %] 7.1 % *HI* (01/27/16 4:38 PM) Immunizations No data available for this section [...]
--- OUTSIDE RECORDS SUMMARY | 2018-08-01 03:17 | XMS REPORT | Summary of Care ---
:1965 Author Organization [facility] Address [address] [place] [phone]- Encounter [facility] July_rikki(FIN) [phone] Date(s): 10/21/15 - 11/19/15 [facility] [address] [place] [phone]- [employer] Discharge Disposition: Home Attending Physician: Shanae Toussaint MD Referring Physician: Shanae Toussaint MD Vital Signs Most recent to oldest [Reference Range]: 1 2 Height 162.56 cm 162.56 cm (11/09/15 3:16 PM) (10/21/15 1:37 PM) Blood Pressure [90-140/60-90 mmHg] 151/78 mmHg 122/81 mmHg *HI* (10/21/15 1:37 PM) (11/09/15 3:16 PM) Peripheral Pulse Rate [60-100 bpm] 69 bpm 59 bpm (11/09/15 3:16 PM) *LOW* (10/21/15 1:37 PM) Weight 89.773 kg 88.693 kg (11/09/15 3:16 PM) (10/21/15 1:37 PM) Body Mass Index 33.97 m2 33.56 m2 (11/09/15 3:16 PM) (10/21/15 1:37 PM) Problem List Condition Effective Dates Status [...]
--- OUTSIDE RECORDS SUMMARY | 2018-08-01 03:17 | XMS REPORT | Summary of Care ---
:[address] [facility] Address [address] [place] [phone]- Encounter HQ Bob(FIN) [phone] Date(s): 07/23/15 - 08/21/15 [facility] [address] [place] [phone]- [employer] Discharge Disposition: Home Attending Physician: Shanae Toussaint MD Referring Physician: Shanae Toussaint MD Vital Signs Most recent to oldest [Reference Range]: 1 Height 162.56 cm (07/23/15 8:57 AM) Blood Pressure [90-140/60-90 mmHg] 123/75 mmHg (07/23/15 8:57 AM) Peripheral Pulse Rate [60-100 bpm] 62 bpm (07/23/15 8:57 AM) Weight 87.386 kg (07/23/15 8:57 AM) Body Mass Index 33.07 m2 (07/23/15 8:57 AM) Problem List Condition Effective Dates [...] Substance Reaction Severity Status NKDA Active Medications test strips test strips, use to check BG 4x/day UD, TOP, QID, # 360 strip, Refill(s) 3, called to pharmacy Start Date: 08/13/15 Status: Ordered Results SPECIAL CHEMISTRY Most recent to oldest [Reference Range]: 1 Hgb A1C [<=5.6 %] 6.9 % *HI* (08/13/15 10:47 AM) Immunizations No data available for this [...]
--- OUTSIDE RECORDS SUMMARY | 2018-08-01 03:17 | XMS REPORT | Summary of Care ---
:1965 Author Organization [facility] Address [address] [place] [id number] Encounter HQ Encntr_rikki(FIN) [id number] Date(s): 03/06/16 - 03/10/16 [facility] [address] [place] [address] Professional Services provided by [facility] [place] [address]- Discharge Disposition: Home or Self Care Attending Physician: Asaf Hoffman MD Admitting Physician: Salvador Mckeon MD Referring Physician: Physician, Non Associated MD Vital Signs Most recent to oldest 1 2 3 [Reference Range]: Height 162.5 cm 162.5 cm 162.56 cm (03/08/16 11:12 AM) (03/07/16 12:08 PM) (03/06/16 3:04 AM) Temperature Oral [96.4-99.1 98 DegF 98.1 DegF 97.8 DegF DegF] (03/10/16 11:40 AM) (03/10/16 8:10 AM) (03/10/16 5:32 AM) Blood Pressure [90-140/60-90 117/74 mmHg 136/84 mmHg 154/84 mmHg mmHg] (03/10/16 11:40 AM) (03/10/16 8:10 AM) *HI* (03/10/16 5:32 AM) Respiratory Rate [14-20 18 BRMIN 18 BRMIN 18 BRMIN BRMIN] (03/10/16 11:40 AM) (03/10/16 8:10 AM) (03/10/16 5:32 AM) Peripheral Pulse Rate 63 bpm 62 bpm 58 bpm [60-100 bpm] (03/10/16 11:40 AM) (03/10/16 8:10 AM) *LOW* (03/10/16 5:32 AM) Weight 84.091 kg 86.3 kg 86.364 kg (03/10/16 5:34 AM) (03/08/16 11:12 AM) (03/07/16 12:08 PM) Body Mass Index 32.68 m2 32.71 m2 32.68 m2 (03/08/16 11:12 AM) (03/07/16 12:08 PM) (03/06/16 3:04 AM) Problem List Condition Effective Dates Status [...] Substance Reaction Severity Status NKDA Active Medications amLODIPine 10 mg, Route: PO, Drug form: TAB, Daily, Dosing Weight 86.364, kg, Start date: 03/10/16 9:00:00 CDT,Duration: 30 day, Stop date: 04/08/16 9:00:00 CDT Start Date: 03/10/16 Stop Date: 03/09/16 Status: CanceledamLODIPine 10 mg, 1 tab, Route: NG, Drug form: TAB, Daily, Dosing Weight 86.364, kg, Priority: NOW, Start date:03/08/16 10:06:00 CDT, Stop date: 04/07/16 9:00:00 CDT Start Date: 03/08/16 Stop Date: 03/09/16 Status: DiscontinuedAncef 1 gm, Route: IVPB, [id number], Dosing Weight 86.364, kg, Start date: 03/06/16 17:00: 00 CDT, Duration: 3 doses or times, Stop date: 03/07/16 9:00:00 CDT Start Date: 03/06/16 Stop Date: 03/06/16 Status: CanceledAncef 2 gm, Route: IVPB, ONCE, Dosing Weight 86.364, kg, Start date: 03/06/16 16:00: 00 CDT, Duration: 1 doses or times, Stop date: 03/06/16 16:00:00 CDT, Surgical Prophylaxis Only; For patients < 120 kg Start Date: 03/06/16 Stop Date: 03/06/16 Status: CompletedANES Enalaprilat 0.625 mg, 0.5 mL, Route: IVP, Drug form: INJ, Q5Min, Dosing Weight 86.364, kg, PRN Elevated BP, Start date: 03/06/16 16:41:00 CDT, Duration: 4 doses or times, Stop date: Limited # of times Notes: (Same as: Vasotec-IV) Start Date: 03/06/16 Stop Date: 03/06/16 Status: DiscontinuedANES flumazenil 0.2 mg, 2 mL, Route: IVP, Drug form: INJ, PRN, Dosing Weight 86.364, kg, PRN Benzodiazepine Reversal, Initial dose, Start date: 03/06/16 16:41:00 CDT, Duration: 30 day, Stop date: 04/05/16 16:40:00 CDT Notes: (Same as: Romazicon) Start Date: 03/06/16 Stop Date: 03/06/16 Status: DiscontinuedANES hydrALAZINE 10 mg, 0.5 mL, Route: IVP, Drug form: INJ, Q20Min, Dosing Weight 86.364, kg, PRN Elevated BP, Start date: 03/06/16 16:41:00 CDT, Duration: 2 doses or times, Stop date: Limited # of times Notes: (Same as: Apresoline)Push over 5 minutes Start Date: 03/06/16 Stop Date: 03/06/16 Status: DiscontinuedANES HYDROmorphone 0.2 mg, 0.1 mL, Route: IVP, Drug form: INJ, Q5Min, Dosing Weight 86.364, kg, PRN Pain Score 7-10, Start date: 03/06/16 16:41:00 CDT, Duration: 4 doses or times, Stop date: Limited # of times Notes: (Same as: Dilaudid) Start Date: 03/06/16 Stop Date: 03/06/16 Status: DiscontinuedANES labetalol 10 mg, 2 mL, Route: IVP, Drug form: INJ, Q5Min, Dosing Weight 86.364, kg, PRN Elevated BP, Start date: 03/06/16 16:41:00 CDT, Duration: 5 doses or times, Stop date: Limited # of times Start Date: 03/06/16 Stop Date: 03/06/16 Status: DiscontinuedANES naloxone 0.4 mg, 1 mL, Route: IVP, Drug form: INJ, Q2MIN, Dosing Weight 86.364, kg, PRN Narcotic Reversal, Start date: 03/06/16 16:41:00 CDT, Duration: 8 doses or times , Stop date: Limited # of times Notes: Same as Narcan Start Date: 03/06/16 Stop Date: 03/06/16 Status: DiscontinuedANES ondansetron 4 mg, 2 mL, Route: IVP, Drug form: INJ, ONCE, Dosing Weight 86.364, kg, PRN Nausea & Vomiting, Start date: 03/06/16 16:41:00 CDT Notes: (Same as: Zoan) MEDICATION WASTE Product Size: 4 mgProduct Wasted: ___ mg Start Date: 03/06/16 Stop Date: 03/06/16 Status: DiscontinuedANES promethazine + sodium chloride 0.9% INJ 50 mL 6.25 mg, 0.25 mL, Route: IVPB, ONCE, Dosing Weight 86.364, kg, PRN Nausea & Vomiting, Start date: 03/06/16 16:41:00 CDT Notes: Do not give IV push. (Same as: Phenergan) Start Date: 03/06/16 Stop Date: 03/06/16 Status: Discontinuedbiotin 63526 mcg, 0 Refill(s) Start Date: 03/06/16 Stop Date: 03/10/16 Status: Discontinuedbisacodyl 10 mg, Route: MT, Drug form: SUPP, Daily, Dosing Weight 86.364, kg, PRN Other - See Comment, Start date: 03/06/16 16:11:00 CDT, Duration: 30 day, Stop date: 16:10:00 CDT Start Date: 03/06/16 Stop Date: 03/06/16 Status: Discontinuedcarvedilol 25 mg, 1 tab, Route: PO, Drug form: TAB, Q12H, Dosing Weight 86.364, kg, Start date: 03/06/16 10:34:00 CDT, Duration: 30 day, Stop date: 04/05/16 8:00:00 CDT Notes: Give with food. (Same As: Coreg) Start Date: 03/06/16 Stop Date: 03/07/16 Status: Discontinuedcarvedilol 25 mg, 1 tab, Route: NG, Drug form: TAB, Q12H, Dosing Weight 86.364, kg, Start date: 03/07/16 20:00:00 CDT, Duration: 30 day, Stop date: 04/06/16 8:00:00 CDT Notes: Give with food. (Same As: Coreg) Start Date: 03/07/16 Stop Date: 03/09/16 Status: Discontinuedcarvedilol 25 mg, 1 tab, Route: PO, Drug form: TAB, Q12H, Dosing Weight 86.364, kg, Start date: 03/09/16 20:00:00 CDT, Duration: 30 day, Stop date: 04/08/16 8:00:00 CDT Notes: Give with food. (Same As: Coreg) Start Date: 03/09/16 Stop Date: 03/10/16 Status: DiscontinuedChloraseptic 1.4% spray 1 spray, Route: TOP, BID, Drug form: SPRY, PRN Sore Throat, Start date: 8:36:00 CDT, Duration: 30 day, Stop date: 04/07/16 8:35:00 CDT Notes: Chloraseptic [place](Same as: Chloraseptic, Sore Throat [place])WASTE: F/P - Black; E - [employer] [facility] Start Date: 03/08/16 Stop Date: 03/10/16 Status: DiscontinuedColace 100 mg oral capsule 100 mg=1 cap, PO, BID, # 60 cap, 1 Refill(s), Pharmacy: [facility] [id number] Start Date: 03/10/16 Stop Date: 05/09/16 Status: OrderedDextrose 50% Syringe 25 gm, 50 mL, Route: IVP, Drug Form: INJ, Dosing Weight 86.364, kg, PRN, PRN Blood Glucose Results, Start date: 03/07/16 13:20:00 CDT, Duration: 30 day, Stop date: 04/06/16 13:19:00 CDT Start Date: 03/07/16 Stop Date: 03/09/16 Status: DiscontinuedDextrose 50% Syringe 12.5 gm, 25 mL, Route: IVP, Drug Form: INJ, Dosing Weight 86.364, kg, PRN, PRN Blood Glucose Results, Start date: 03/07/16 13:20:00 CDT, Duration: 30 day, Stop date: 04/06/16 13:19:00 CDT Start Date: 03/07/16 Stop Date: 03/09/16 Status: DiscontinuedDextrose 50% Syringe 25 gm, 50 mL, Route: IVP, Drug Form: INJ, Dosing Weight 86.364, kg, PRN, PRN Blood Glucose Results, Start date: 03/06/16 23:41:00 CDT, Duration: 30 day, Stop date: 04/05/16 23:40:00 CDT Start Date: 03/06/16 Stop Date: 03/07/16 Status: DiscontinuedDextrose 50% Syringe 12.5 gm, 25 mL, Route: IVP, Drug Form: INJ, Dosing Weight 86.364, kg, PRN, PRN Blood Glucose Results, Start date: 03/06/16 23:41:00 CDT, Duration: 30 day, Stop date: 04/05/16 23:40:00 CDT Start Date: 03/06/16 Stop Date: 03/07/16 Status: DiscontinuedDextrose 50% Syringe 25 gm, 50 mL, Route: IVP, Drug Form: INJ, Dosing Weight 86.3, kg, PRN, PRN Blood Glucose Results, Start date: 03/09/16 17:00:00 CDT, Duration: 30 day, Stop date: 04/08/16 16:59:00 CDT Start Date: 03/09/16 Stop Date: 03/10/16 Status: DiscontinuedDextrose 50% Syringe 12.5 gm, 25 mL, Route: IVP, Drug Form: INJ, Dosing Weight 86.3, kg, PRN, PRN Blood Glucose Results, Start date: 03/09/16 17:00:00 CDT, Duration: 30 day, Stop date: 04/08/16 16:59:00 CDT Start Date: 03/09/16 Stop Date: 03/10/16 Status: DiscontinuedDilaudid 0.5 mg, 0.25 mL, Route: IVP, Drug form: INJ, ONCE, Dosing Weight 86.364, kg, Priority: STAT, Start date: 03/06/16 6:40:00 CDT, Stop date: 03/06/16 6:40:00 CDT Notes: (Same as: Dilaudid) Start Date: 03/06/16 Stop Date: 03/06/16 Status: CompletedDilaudid 0.2 mg, 0.1 mL, Route: IVP, Drug form: INJ, Q4H, Dosing Weight 86.364, kg, PRN Pain Score 7-10, Start date: 03/07/16 10:14:00 CDT, Duration: 30 day, Stop date : 04/06/16 10:13:00 CDT Notes: (Same as: Dilaudid) Start Date: 03/07/16 Stop Date: 03/10/16 Status: Discontinueddocusate 100 mg, Route: PO, Drug form: CAP, Q12H, Dosing Weight 86.364, kg, Start date: 03/06/16 21:00:00 CDT, Duration: 30 day, Stop date: 04/05/16 9:00:00 CDT Start Date: 03/06/16 Stop Date: 03/06/16 Status: Canceledglucagon 1 mg, Route: IM, PRN, Dosing Weight 86.364, kg, PRN Blood Glucose Results, Start date: 03/07/16 13:20:00 CDT, Duration: 30 day, Stop date: 04/06/16 13:19: 00 CDT Start Date: 03/07/16 Stop Date: 03/07/16 Status: Deletedglucagon 1 mg, Route: IM, Drug form: PDR/INJ, PRN, Dosing Weight 86.364, kg, PRN Blood Glucose Results, Startdate: 03/06/16 23:41:00 CDT, Duration: 30 day, Stop date: 04/05/16 23:40:00 CDT Start Date: 03/06/16 Stop Date: 03/09/16 Status: Deletedglucagon 1 mg, Route: IM, Drug form: PDR/INJ, PRN, Dosing Weight 86.3, kg, PRN Blood Glucose Results, Start date: 03/09/16 17:00:00 CDT, Duration: 30 day, Stop date : 04/08/16 16:59:00 CDT Start Date: 03/09/16 Stop Date: 03/10/16 Status: DiscontinuedhydrALAZINE 25 mg, 1 tab, Route: PO, Drug form: TAB, BID, Dosing Weight 86.364, kg, Start date: 03/06/16 10:37:00 CDT, Duration: 30 day, Stop date: 04/05/16 8:00:00 CDT Notes: (Same as: Apresoline) May interfere w/enteral feedings Take With Food. Start Date: 03/06/16 Stop Date: 03/09/16 Status: DiscontinuedhydrALAZINE 20 mg, 1 mL, Route: IV, Drug form: INJ, Q4H, Dosing Weight 86.364, kg, PRN Hypertension, Start date:03/08/16 3:02:00 CDT, Duration: 30 day, Stop date: 3:01:00 CDT Notes: (Same as: Apresoline)Push over 5 minutes Start Date: 03/08/16 Stop Date: 03/10/16 Status: DiscontinuedhydrALAZINE 25 mg, PO, BID, 0 Refill(s) Start Date: 03/06/16 Status: Orderedhydromorphone 15 mg 15 mg, 30 mL, Route: IV, Initial Loading Dose: 0.4mg, S[employer]IOR TECH[employer] TRAINER Dose: 0.2 mg, SENIOR TECH[employer]ICAL TRAINER Lockout: 10 minutes, Continuous Basal Rate: 0 mg, 4 Hour Limit (In MG): 6, Continuous, Start date: 03/06/16 16:30:00 CDT, Duration: 30 day, Stop date: 16:29:00 CDT Start Date: 03/06/16 Stop Date: 03/06/16 Status: Canceledinfluenza virus vaccine, inactivated 0.5 mL, Route: IM, Drug Form: SUSP, Daily, Start date: 03/06/16 9:00:00 CDT, Duration: 1 doses or times, Stop date: 03/06/16 9:00:00 CDT Notes: (Same as: Fluzone Quadrivalent, Fluarix Quadrivalent)For 3 years of age and older (0.5 mL IM)Shake well before use Start Date: 03/06/16 Stop Date: 03/06/16 Status: Completedinsulin aspart 3 unit, 0.03 mL, Route: SUB-Q, Drug form: SOLN, TID-Before Meals, Dosing Weight 86.3, kg, Start date: 03/09/16 16:30:00 CDT, Stop date: 04/08/16 11:30:00 CDT Notes: Roll in palms of hands gently; Do not shake vigorously. (Same as: NovoLOG)"single patient use only"WASTE: F/P - Black; E - Municipal Trash Bin Stable for 28 days at room temperature.Expires in days from Date Start Date: 03/09/16 Stop Date: 03/10/16 Status: Discontinuedinsulin aspart 10 unit, 0.1 mL, Route: SUB-Q, Drug form: SOLN, Sliding Scale, Dosing Weight 86.364, kg, PRN Blood Glucose Results, Start date: 03/06/16 23:41:00 CDT, Duration: 30 day, Stop date: 04/05/16 23:40:00 CDT Notes: Roll in palms of hands gently; Do not shake vigorously. (Same as: NovoLOG)"single patient use only"WASTE: F/P - Black; E - Municipal Trash Bin Stable for 28 days at room temperature.Expires in days from Date Start Date: 03/06/16 Stop Date: 03/07/16 Status: Discontinuedinsulin aspart 8 unit, 0.08 mL, Route: SUB-Q, Drug form: SOLN, Sliding Scale, Dosing Weight 86.364, kg, PRN Blood Glucose Results, Start date: 03/06/16 23:41:00 CDT, Duration: 30 day, Stop date: 04/05/16 23:40:00 CDT Notes: Roll in palms of hands gently; Do not shake vigorously. (Same as: NovoLOG)"single patient use only"WASTE: F/P - Black; E - Municipal Trash Bin Stable for 28 days at room temperature.Expires in days from Date Start Date: 03/06/16 Stop Date: 03/07/16 Status: Discontinuedinsulin aspart 6 unit, 0.06 mL, Route: SUB-Q, Drug form: SOLN, Sliding Scale, Dosing Weight 86.364, kg, PRN Blood Glucose Results, Start date: 03/06/16 23:41:00 CDT, Duration: 30 day, Stop date: 04/05/16 23:40:00 CDT Notes: Roll in palms of hands gently; Do not shake vigorously. (Same as: TravefyLOG)"single patient use only"WASTE: F/P - Black; E - Municipal Trash Bin Stable for 28 days at room temperature.Expires in days from Date Start Date: 03/06/16 Stop Date: 03/07/16 Status: Discontinuedinsulin aspart 2 unit, 0.02 mL, Route: SUB-Q, Drug form: SOLN, Sliding Scale, Dosing Weight 86.364, kg, PRN Blood Glucose Results, Start date: 03/06/16 23:41:00 CDT, Duration: 30 day, Stop date: 04/05/16 23:40:00 CDT Notes: Roll in palms of hands gently; Do not shake vigorously. (Same as: NovoLOG)"single patient use only"WASTE: F/P - Black; E - Municipal Trash Bin Stable for 28 days at room temperature.Expires in days from Date Start Date: 03/06/16 Stop Date: 03/07/16 Status: Discontinuedinsulin aspart 4 unit, 0.04 mL, Route: SUB-Q, Drug form: SOLN, Sliding Scale, Dosing Weight 86.364, kg, PRN Blood Glucose Results, Start date: 03/06/16 23:41:00 CDT, Duration: 30 day, Stop date: 04/05/16 23:40:00 CDT Notes: Roll in palms of hands gently; Do not shake vigorously. (Same as: NovoLOG)"single patient use only"WASTE: F/P - Black; E - Municipal Trash Bin Stable for 28 days at room temperature.Expires in days from Date Start Date: 03/06/16 Stop Date: 03/07/16 Status: Discontinuedinsulin aspart 6 unit, 0.06 mL, Route: SUB-Q, Drug form: SOLN, TID-Before Meals, Dosing Weight 86.3, kg, PRN Blood Glucose Results, Start date: 03/09/16 17:00:00 CDT, Duration : 30 day, Stop date: 04/08/16 16:59:00 CDT Notes: Roll in palms of hands gently; Do not shake vigorously. (Same as: TravefyLOG)"single patient use only"WASTE: F/P - Black; E - Municipal Trash Bin Stable for 28 days at room temperature.Expires in days from Date Start Date: 03/09/16 Stop Date: 03/10/16 Status: Discontinuedinsulin aspart 8 unit, 0.08 mL, Route: SUB-Q, Drug form: SOLN, TID-Before Meals, Dosing Weight 86.3, kg, PRN Blood Glucose Results, Start date: 03/09/16 17:00:00 CDT, Duration : 30 day, Stop date: 04/08/16 16:59:00 CDT Notes: Roll in palms of hands gently; Do not shake vigorously. (Same as: NovoLOG)"single patient use only"WASTE: F/P - Black; E - Municipal Trash Bin Stable for 28 days at room temperature.Expires in days from Date Start Date: 03/09/16 Stop Date: 03/10/16 Status: Discontinuedinsulin aspart 10 unit, 0.1 mL, Route: SUB-Q, Drug form: SOLN, TID-Before Meals, Dosing Weight 86.3, kg, PRN Blood Glucose Results, Start date: 03/09/16 17:00:00 CDT, Duration : 30 day, Stop date: 04/08/16 16:59:00 CDT Notes: Roll in palms of hands gently; Do not shake vigorously. (Same as: NovoLOG)"single patient use only"WASTE: F/P - Black; E - Municipal Trash Bin Stable for 28 days at room temperature.Expires in days from Date Start Date: 03/09/16 Stop Date: 03/10/16 Status: Discontinuedinsulin aspart 2 unit, 0.02 mL, Route: SUB-Q, Drug form: SOLN, TID-Before Meals, Dosing Weight 86.3, kg, PRN Blood Glucose Results, Start date: 03/09/16 17:00:00 CDT, Duration : 30 day, Stop date: 04/08/16 16:59:00 CDT Notes: Roll in palms of hands gently; Do not shake vigorously. (Same as: NovoLOG)"single patient use only"WASTE: F/P - Black; E - Municipal Trash Bin Stable for 28 days at room temperature.Expires in days from Date Start Date: 03/09/16 Stop Date: 03/10/16 Status: Discontinuedinsulin aspart 4 unit, 0.04 mL, Route: SUB-Q, Drug form: SOLN, TID-Before Meals, Dosing Weight 86.3, kg, PRN Blood Glucose Results, Start date: 03/09/16 17:00:00 CDT, Duration : 30 day, Stop date: 04/08/16 16:59:00 CDT Notes: Roll in palms of hands gently; Do not shake vigorously. (Same as: NovoLOG)"single patient use only"WASTE: F/P - Black; E - Municipal Trash Bin Stable for 28 days at room temperature.Expires in days from Date Start Date: 03/09/16 Stop Date: 03/10/16 Status: DiscontinuedInsulin regular 6 unit, 0.06 mL, Route: SUB-Q, Drug form: SOLN, Sliding Scale, Dosing Weight 86.364, kg, PRN Blood Glucose Results, Start date: 03/07/16 13:20:00 CDT, Duration: 30 day, Stop date: 04/06/16 13:19:00 CDT Notes: (Same as: Humulin R) Roll in palms of hands gently; Do not shake vigorously. "single patientuse only"(Restricted to patients requiring a dose > 60 units)WASTE: F/P - Black; E - Municipal Trash Bin Stable for 28 days at room temperatureExpires in days from Date Start Date: 03/07/16 Stop Date: 03/09/16 Status: DiscontinuedInsulin regular 2 unit, 0.02 mL, Route: SUB-Q, Drug form: SOLN, Sliding Scale, Dosing Weight 86.364, kg, PRN Blood Glucose Results, Start date: 03/07/16 13:20:00 CDT, Duration: 30 day, Stop date: 04/06/16 13:19:00 CDT Notes: (Same as: Humulin R) Roll in palms of hands gently; Do not shake vigorously. "single patientuse only"(Restricted to patients requiring a dose > 60 units)WASTE: F/P - Black; E - Municipal Trash Bin Stable for 28 days at room temperatureExpires in days from Date Start Date: 03/07/16 Stop Date: 03/09/16 Status: DiscontinuedInsulin regular 4 unit, 0.04 mL, Route: SUB-Q, Drug form: SOLN, Sliding Scale, Dosing Weight 86.364, kg, PRN Blood Glucose Results, Start date: 03/07/16 13:20:00 CDT, Duration: 30 day, Stop date: 04/06/16 13:19:00 CDT Notes: (Same as: Humulin R) Roll in palms of hands gently; Do not shake vigorously. "single patientuse only"(Restricted to patients requiring a dose > 60 units)WASTE: F/P - Black; E - Municipal Trash Bin Stable for 28 days at room temperatureExpires in days from Date Start Date: 03/07/16 Stop Date: 03/09/16 Status: DiscontinuedInsulin regular 10 unit, 0.1 mL, Route: SUB-Q, Drug form: SOLN, Sliding Scale, Dosing Weight 86.364, kg, PRN Blood Glucose Results, Start date: 03/07/16 13:20:00 CDT, Duration: 30 day, Stop date: 04/06/16 13:19:00 CDT Notes: (Same as: Humulin R) Roll in palms of hands gently; Do not shake vigorously. "single patientuse only"(Restricted to patients requiring a dose > 60 units)WASTE: F/P - Black; E - Municipal Trash Bin Stable for 28 days at room temperatureExpires in days from Date Start Date: 03/07/16 Stop Date: 03/09/16 Status: DiscontinuedInsulin regular 8 unit, 0.08 mL, Route: SUB-Q, Drug form: SOLN, Sliding Scale, Dosing Weight 86.364, kg, PRN Blood Glucose Results, Start date: 03/07/16 13:20:00 CDT, Duration: 30 day, Stop date: 04/06/16 13:19:00 CDT Notes: (Same as: Humulin R) Roll in palms of hands gently; Do not shake vigorously. "single patientuse only"(Restricted to patients requiring a dose > 60 units)WASTE: F/P - Black; E - Municipal Trash Bin Stable for 28 days at room temperatureExpires in days from Date Start Date: 03/07/16 Stop Date: 03/09/16 Status: DiscontinuedIsolyte S (PH 7.4) 1000 mL 1,000 mL 1,000 mL, Rate: 100 ml/hr, Infuse over: 10 hr, Route: IV, Dosing Weight 86.364 kg, Total Volume: 1,000, Start date: 03/07/16 11:16:00 CDT, Duration: 30 day, Stop date: 04/06/16 11:15:00 CDT Notes: (Same as: Isolyte S PH 7.4) Start Date: 03/07/16 Stop Date: 03/09/16 Status: Discontinuedlansoprazole 15 mg, 5 mL, Route: NG, Drug form: SUSP, BID-Before Meals, Dosing Weight 86.364 , kg, Priority: NOW, Start date: 03/07/16 13:08:00 CDT, Duration: 30 day, Stop date: 04/06/16 7:30:00 CDT Notes: Take 1 hour before or 2 hours after meal; Expires in 14 days. Shake well before use. (Same as:Prevacid) Compounded Product - formulation not commercially available Start Date: 03/07/16 Stop Date: 03/09/16 Status: Discontinuedleflunomide 40 mg, 2 tab, Route: PO, Drug form: TAB, Daily, Dosing Weight 86.364, kg, Priority: NOW, Start date:03/06/16 9:39:00 CDT, Duration: 30 day, Stop date: 9:00:00 CDT Notes: Non-Formulary Drug (Same as:Arava) Start Date: 03/06/16 Stop Date: 03/07/16 Status: DiscontinuedLevemir 10 unit, 0.1 mL, Route: SUB-Q, Drug form: SOLN, Q12H, Dosing Weight 86.3, kg, Start date: 03/09/16 21:00:00 CDT, Duration: 30 day, Stop date: 04/08/16 9:00: 00 CDT Notes: Same as Levemir Start Date: 03/09/16 Stop Date: 03/10/16 Status: DiscontinuedLevemir FlexPen 100 units/mL subcutaneous solution 10 unit, SUB-Q, Q12H, # 3 mL, 3 Refill(s), other Start Date: 03/10/16 Stop Date: 07/08/16 Status: OrderedmethylPREDNISolone SODium SUCCinate 10 mg, 0.16 mL, Route: IV, Drug form: INJ, ONCE, Dosing Weight 86.364, kg, Priority: NOW, Start date: 03/06/16 21:30:00 CDT, Stop date: 03/06/16 21:30:00 CDT Notes: (Same as:Solu-MEDROL, A-Methapred) Start Date: 03/06/16 Stop Date: 03/06/16 Status: Completedmetoprolol 5 mg/5 ml INJ 5 mg, 5 mL, Route: IV, Drug form: INJ, ONCE, Dosing Weight 86.364, kg, Start date: 03/06/16 12:30:00CDT, Stop date: 03/06/16 12:30:00 CDT Notes: (Same as: Lopressor)Push over 2 minutes Start Date: 03/06/16 Stop Date: 03/06/16 Status: Completednaloxone 0.04 mg, Route: IVP, Q2MIN, Dosing Weight 86.364, kg, PRN Narcotic Reversal, Start date: 03/06/16 16:13:00 CDT, Duration: 30 day, Stop date: 04/05/16 16:12: 00 CDT Start Date: 03/06/16 Stop Date: 03/06/16 Status: DiscontinuedNeutra-Phos 1 pkt, Route: PO, Drug Form: PDR/REC, Dosing Weight 86.364, kg, TID-Before Meals , Start date: 03/09/16 11:30:00 CDT, Duration: 3 day, Stop date: 03/12/16 7:30: 00 CDT Notes: (Same as: Neutra-Phos) Each 1.25 gm pkt has 250mg phosphorous. Mix w/ 2.5oz water and stir. Start Date: 03/09/16 Stop Date: 03/10/16 Status: DiscontinuedNeutra-Phos 1 pkt, Route: NG, Drug Form: PDR/REC, Dosing Weight 86.364, kg, TID-Before Meals , NOW, Start date: 03/08/16 6:48:00 CDT, Stop date: 03/10/16 16:30:00 CDT Notes: (Same as: Neutra-Phos) Each 1.25 gm pkt has 250mg phosphorous. Mix w/ 2.5oz water and stir. Start Date: 03/08/16 Stop Date: 03/09/16 Status: DiscontinuedNifediac CC 90 mg, Route: PO, Drug form: ERTAB, Q12H, Dosing Weight 86.364, kg, Start date: 03/06/16 21:00:00 CDT, Duration: 30 day, Stop date: 04/05/16 9:00:00 CDT Start Date: 03/06/16 Stop Date: 03/09/16 Status: DeletedNIFEdipine 90 mg oral tablet, extended release 90 mg, 1 tab, Route: PO, Drug form: ERTAB, Q12H, Dosing Weight 86.3, kg, Start date: 03/09/16 20:00:00 CDT, Duration: 30 day, Stop date: 04/08/16 8:00:00 CDT Notes: (Same as:Adalat CC, Procardia XL) Give on empty stomach. Take 1 hour before or 2 hours aftermeal; "Avoid grapefruit and grapefruit juice". Do not crush Start Date: 03/09/16 Stop Date: 03/10/16 Status: DiscontinuedNIFEdipine 90 mg oral tablet, extended release 90 mg, Route: PO, Drug form: ERTAB, Q12H, Dosing Weight 86.3, kg, Start date: 21:00:00 CDT,Duration: 30 day, Stop date: 04/08/16 9:00:00 CDT Start Date: 03/09/16 Stop Date: 03/09/16 Status: CanceledNovoLOG FlexPen 100 units/mL subcutaneous solution 5 unit, SUB-Q, TID-Before Meals, # 10 mL, 6 Refill(s), other Start Date: 03/10/16 Status: Orderedondansetron 4 mg, Route: IVP, Q8H, Dosing Weight 86.364, kg, PRN Nausea & Vomiting, Start date: 03/06/16 16:11:00 CDT, Duration: 30 day, Stop date: 04/05/16 16:10: 00 CDT Start Date: 03/06/16 Stop Date: 03/06/16 Status: Discontinuedpantoprazole 40 mg oral enteric coated tablet 40 mg=1 tab, PO, Daily, # 30 tab, 3 Refill(s), Pharmacy: [facility] [id number] Start Date: 03/10/16 Stop Date: 07/08/16 Status: OrderedPhenergan 12.5 mg, 0.5 mL, Route: IVPB, Drug form: INJ, Q4H, Dosing Weight 86.364, kg, PRN Nausea & Vomiting, Start date: 03/06/16 10:13:00 CDT, Duration: 30 day, Stop date: 04/05/16 10:12:00 CDT Notes: Do not give IV push. (Same as: Phenergan) Start Date: 03/06/16 Stop Date: 03/10/16 Status: Discontinuedpneumococcal 23-valent vaccine 0.5 mL, Route: IM, Drug Form: INJ, Daily, Start date: 03/06/16 9:00:00 CDT, Duration: 1 doses or times, Stop date: 03/06/16 9:00:00 CDT Notes: (Same as: Pneumovax 23) Refrigerate Start Date: 03/06/16 Stop Date: 03/06/16 Status: Completedpotassium phosphate + sodium chloride 0.9% INJ 250 mL 18 mmol, 6 mL, Route: IVPB, ONCE, Dosing Weight 86.364, kg, Priority: NOW, Start date: 03/08/16 6:48:00 CDT, Stop date: 03/08/16 6:48:00 CDT Notes: (Same as: K Phosphate.) 1 mMol phoshate has 1.47 mEq potassium Infuse over 4 hours Start Date: 03/08/16 Stop Date: 03/08/16 Status: CompletedpredniSONE 5 mg, 1 tab, Route: PO, Drug form: TAB, Daily, Dosing Weight 86.364, kg, Start date: 03/10/16 9:00:00 CDT, Duration: 30 day, Stop date: 04/08/16 9:00:00 CDT Notes: Take with food. Start Date: 03/10/16 Stop Date: 03/10/16 Status: DiscontinuedpredniSONE 5 mg, 1 tab, Route: PO, Drug form: TAB, Daily, Dosing Weight 86.364, kg, Priority: NOW, Start date: 03/06/16 9:41:00 CDT, Duration: 30 day, Stop date: 9:00:00 CDT Notes: Take with food. Start Date: 03/06/16 Stop Date: 03/07/16 Status: DiscontinuedpredniSONE 5 mg, 1 tab, Route: NG, Drug form: TAB, Daily, Dosing Weight 86.364, kg, Start date: 03/08/16 9:00:00 CDT, Duration: 30 day, Stop date: 04/06/16 9:00:00 CDT Notes: Take with food. Start Date: 03/08/16 Stop Date: 03/09/16 Status: DiscontinuedProtonix 40 mg, Route: IV, BID, Dosing Weight 86.364, kg, Start date: 03/06/16 17:00:00 CDT, Duration: 30 day, Stop date: 04/05/16 9:00:00 CDT Start Date: 03/06/16 Stop Date: 03/06/16 Status: CanceledProtonix 40 mg, 1 tab, Route: PO, Drug form: ECTAB, Before Dinner, Dosing Weight 86.3, kg , Start date: 03/09/16 16:30:00 CDT, Duration: 30 day, Stop date: 04/07/16 16:30 :00 CDT Notes: (Same as: Protonix) Start Date: 03/09/16 Stop Date: 03/10/16 Status: DiscontinuedReglan 10 mg, 10 mL, Route: PO, Drug form: SYRP, TID-Before Meals, Dosing Weight 86.364 , kg, Start date: 03/09/16 11:30:00 CDT, Duration: 30 day, Stop date: 04/08/16 7 :30:00 CDT Notes: (Same as: Reglan) Take 30 min before meals Start Date: 03/09/16 Stop Date: 03/10/16 Status: DiscontinuedReglan 10 mg, 10 mL, Route: NG, Drug form: SYRP, Q6H, Dosing Weight 86.364, kg, Priority: NOW, Start date: 03/08/16 10:08:00 CDT, Duration: 30 day, Stop date: 04/07/16 4:30:00 CDT Notes: (Same as: Reglan) Take 30 min before meals Start Date: 03/08/16 Stop Date: 03/09/16 Status: DiscontinuedReglan 10 mg oral tablet 10 mg=1 tab, PO, Before Meals & Bedtime, X 30 day, # 120 tab, 2 Refill(s), Pharmacy: [facility] [id number] Start Date: 03/10/16 Stop Date: 06/08/16 Status: OrderedSaline Flush 0.9% 10 ml, Route: IVP, Drug Form: INJ, Dosing Weight 86.364, kg, PRN, PRN Line Flush , Start date: 03/06/16 16:11:00 CDT, Duration: 30 day, Stop date: 04/05/16 16:10 :00 CDT Start Date: 03/06/16 Stop Date: 03/06/16 Status: DiscontinuedSaline Flush 0.9% 10 ml, Route: IVP, Drug Form: INJ, Dosing Weight 86.364, kg, Q12H, Start date: 03/06/16 21:00:00 CDT, Duration: 30 day, Stop date: 04/05/16 9:00:00 CDT Start Date: 03/06/16 Stop Date: 03/06/16 Status: CanceledSaline Flush 0.9% 10 ml, Route: IVP, Drug Form: INJ, Dosing Weight 86.364, kg, PRN, PRN Line Flush , Start date: 03/06/16 3:34:00 CDT, Duration: 30 day, Stop date: 04/05/16 3:33: 00 CDT Notes: Same as: BD Posiflush Sterile Start Date: 03/06/16 Stop Date: 03/10/16 Status: DiscontinuedSenna 8.6 mg oral tablet 8.6 mg=1 tab, PO, BID, Hold for diarrhea, X 14 day, # 28 tab, 0 Refill(s), Pharmacy: [facility] [id number] Start Date: 03/10/16 Stop Date: 03/24/16 Status: Orderedsodium bicarbonate 1300, PO, TID, 0 Refill(s) Start Date: 03/06/16 Stop Date: 03/10/16 Status: Discontinuedsodium chloride 0.9% 1000 ml INJ 1,000 mL 1,000 mL, Rate: 100 ml/hr, Infuse over: 10 hr, Route: IV, Dosing Weight 86.364 kg, Total Volume: 1,000, Start date: 03/06/16 3:34:00 CDT, Duration: 30 day, Stop date: 04/05/16 3:33:00 CDT Start Date: 03/06/16 Stop Date: 03/07/16 Status: DiscontinuedSodium Chloride 0.9% IV 250 mL + octreotide 1,250 microgram 250 mL, Rate: 50 microgram/hr, Route: IV, Dosing Weight 86.364 kg, Total Volume : 250, Start date: 03/06/16 16:13:00 CDT, Duration: 30 day, Stop date: 04/05/16 16:12:00 CDT Start Date: 03/06/16 Stop Date: 03/06/16 Status: Discontinuedtacrolimus 1 mg, 1 mL, Route: NG, Drug form: SUSP, X31H-20, Dosing Weight 86.364, kg, Start date: 03/07/16 20:00:00 CDT, Duration: 30 day, Stop date: 04/06/16 8:00: 00 CDT Notes: Do not refrigerate. Shake well. (Same As: Prograf) "Avoid grapefruit and grapefruit juice"Compounded Product - formulation not commercially available Start Date: 03/07/16 Stop Date: 03/09/16 Status: Voided With Resultstacrolimus 1 mg, 1 mL, Route: PO, Drug form: SUSP, [id number]-75, Dosing Weight 86.364, kg, Priority: NOW, Start date: 03/06/16 9:39:00 CDT, Duration: 30 day, Stop date: 8:00:00 CDT Notes: Do not refrigerate. Shake well. (Same As: Prograf) "Avoid grapefruit and grapefruit juice"Compounded Product - formulation not commercially available Start Date: 03/06/16 Stop Date: 03/07/16 Status: Discontinuedtacrolimus 0.5 mg, 1 cap, Route: SL, Drug form: CAP, ONCE, Dosing Weight 86.364, kg, Priority: NOW, Start date:03/06/16 21:30:00 CDT, Stop date: 03/06/16 21:30:00 CDT Notes: Avoid grapefruit and grapefruit juice.(Same As: Prograf) Start Date: 03/06/16 Stop Date: 03/06/16 Status: Completedtacrolimus 1 mg, 1 cap, Route: PO, Drug form: CAP, [id number]-05, Dosing Weight 86.3, kg, Start date: 03/09/16 20:00:00 CDT, Duration: 30 day, Stop date: 04/08/16 8:00:00 CDT Notes: Avoid grapefruit and grapefruit juice.(Same As: Prograf) Start Date: 03/09/16 Stop Date: 03/10/16 Status: Discontinuedtramadol 50 mg oral tablet 50 mg, 1 tab, Route: PO, Drug form: TAB, Q6H, Dosing Weight 84.091, kg, PRN Pain Score 4-6, Start date: 03/10/16 10:01:00 CDT, Duration: 30 day, Stop date: 04/09/16 10:00:00 CDT Notes: Not to exceed 400mg/day. (Same As: Ultram) Start Date: 03/10/16 Stop Date: 03/10/16 Status: Discontinued Results BLOOD BANK RESULTS Most recent to oldest [Reference Range]: 1 2 3 ABO/Rh O POS *Unknown* (03/06/16 10:13 AM) Antibody Scrn Negative (03/06/16 10:13 AM) ELECTROLYTES Most recent to oldest 1 2 3 [Reference Range]: Sodium Lvl [135-145 mEq/L] 143 mEq/L 143 mEq/L 144 mEq/L (03/10/16 5:30 AM) (03/09/16 6:00 AM) (03/08/16 5:21 AM) Potassium Lvl [3.5-5.1 3.4 mEq/L 3.8 mEq/L 3.9 mEq/L mEq/L] *LOW* (03/09/16 6:00 AM) (03/08/16 5:21 AM) (03/10/16 5:30 AM) Chloride Lvl [95-109 mEq/L] 111 mEq/L 112 mEq/L 112 mEq/L *HI* *HI* *HI* (03/10/16 5:30 AM) (03/09/16 6:00 AM) (03/08/16 5:21 AM) CO2 [24-32 mEq/L] 23 mEq/L 22 mEq/L 21 mEq/L *LOW* *LOW* *LOW* (03/10/16 5:30 AM) (03/09/16 6:00 AM) (03/08/16 5:21 AM) AGAP [10.0-20.0 mEq/L] 12.4 mEq/L 12.8 mEq/L 14.9 mEq/L (03/10/16 5:30 AM) (03/09/16 6:00 AM) (03/08/16 5:21 AM) CHEM PANEL Most recent to oldest 1 2 3 [Reference Range]: Creatinine Lvl [0.50-1.40 1.22 mg/dL 1.13 mg/dL 1.18 mg/dL mg/dL] (03/10/16 5:30 AM) (03/09/16 6:00 AM) (03/08/16 5:21 AM) eGFR 52 mL/min/1.73m2 1 57 mL/min/1.73m2 2 54 mL/min/1.73m2 3 *NA* *NA* *NA* (03/10/16 5:30 AM) (03/09/16 6:00 AM) (03/08/16 5:21 AM) BUN [7-22 mg/dL] 21 mg/dL 26 mg/dL 28 mg/dL (03/10/16 5:30 AM) *HI* *HI* (03/09/16 6:00 AM) (03/08/16 5:21 AM) Glucose Lvl [70-99 mg/dL] 112 mg/dL 148 mg/dL 200 mg/dL *HI* *HI* *HI* (03/10/16 5:30 AM) (03/09/16 6:00 AM) (03/08/16 5:21 AM) Calcium Lvl [8.5-10.5 mg/dL] 8.8 mg/dL 9.0 mg/dL 8.7 mg/dL (03/10/16 5:30 AM) (03/09/16 6:00 AM) (03/08/16 5:21 AM) Phosphorus [2.5-4.5 mg/dL] 2.6 mg/dL 2.1 mg/dL 1.2 mg/dL 4 (03/10/16 5:30 AM) *LOW* *CRIT* (03/09/16 6:00 AM) (03/08/16 5:21 AM) Magnesium Lvl [1.8-2.4 2.0 mg/dL 2.4 mg/dL 2.4 mg/dL mg/dL] (03/10/16 5:30 AM) (03/09/16 6:00 AM) (03/08/16 5:21 AM) 1Result Comment: The eGFR is calculated [...] be multiplied by the estimated BMI.4Result Comment: Critical Result(s) called to Nilton Cardenas at 03/08/2016 06:43 byJw. Read back OK.TOXICOLOGY Most recent to oldest 1 2 3 [Reference Range]: Tacrolimus Lvl [5.0-15.0 8.7 ng/mL 6.5 ng/mL 4.6 ng/mL ng/mL] (03/10/16 5:30 AM) (03/09/16 6:00 AM) *LOW* (03/08/16 5:21 AM) URINE AND STOOL Most recent to oldest [Reference Range]: 1 2 3 UA Turbidity [Clear] Clear (03/06/16 10:42 PM) UA Color [Yellow] Light Yellow *NA* (03/06/16 10:42 PM) UA pH [5.0-8.0] 6.5 (03/06/16 10:42 PM) UA Spec Grav [<=1.030] 1.013 (03/06/16 10:42 PM) UA Glucose [Negative mg/dL] >=1000 mg/dL *ABN* (03/06/16 10:42 PM) UA Blood [Negative] Negative (03/06/16 10:42 PM) UA Ketones TR *NA* (03/06/16 10:42 PM) UA Protein [Negative mg/dL] Negative mg/dL (03/06/16 10:42 PM) UA Urobilinogen [0.1-1.0 mg/dL] <=1.0 mg/dL *NA* (03/06/16 10:42 PM) UA Bili [Negative] Negative *NA* (03/06/16 10:42 PM) UA Leuk Est [Negative] Small *ABN* (03/06/16 10:42 PM) UA Nitrite [Negative] Negative (03/06/16 10:42 PM) UA WBC [0-5 /HPF] 8 /HPF *HI* (03/06/16 10:42 PM) UA RBC [0-2 /HPF] <1 /HPF (03/06/16 10:42 PM) UA Sq Epi None Seen *NA* (03/06/16 10:42 PM) UA Mucus [None Seen /LPF] Few /LPF *NA* (03/06/16 10:42 PM) HEMATOLOGY Most recent to oldest 1 2 3 [Reference Range]: WBC [3.7-10.4 K/CMM] 5.4 K/CMM 6.1 K/CMM 8.1 K/CMM (03/10/16 5:30 AM) (03/09/16 6:00 AM) (03/08/16 5:21 AM) RBC [4.20-5.40 M/CMM] 4.36 M/CMM 4.31 M/CMM 4.51 M/CMM (03/10/16 5:30 AM) (03/09/16 6:00 AM) (03/08/16 5:21 AM) Hgb [12.0-16.0 g/dL] 12.1 g/dL 11.9 g/dL 12.3 g/dL (03/10/16 5:30 AM) *LOW* (03/08/16 5:21 AM) (03/09/16 6:00 AM) Hct [36.0-48.0 %] 35.5 % 35.2 % 36.9 % *LOW* *LOW* (03/08/16 5:21 AM) (03/10/16 5:30 AM) (03/09/16 6:00 AM) MCV [80.0-98.0 fL] 81.5 fL 81.6 fL 81.7 fL (03/10/16 5:30 AM) (03/09/16 6:00 AM) (03/08/16 5:21 AM) MCH [27.0-31.0 pg] 27.7 pg 27.6 pg 27.3 pg (03/10/16 5:30 AM) (03/09/16 6:00 AM) (03/08/16 5:21 AM) MCHC [32.0-36.0 g/dL] 34.0 g/dL 33.8 g/dL 33.4 g/dL (03/10/16 5:30 AM) (03/09/16 6:00 AM) (03/08/16 5:21 AM) RDW [11.5-14.5 %] 13.9 % 13.8 % 14.3 % (03/10/16 5:30 AM) (03/09/16 6:00 AM) (03/08/16 5:21 AM) Platelet [133-450 K/CMM] 107 K/CMM 98 K/CMM 107 K/CMM *LOW* *LOW* *LOW* (03/10/16 5:30 AM) (03/09/16 6:00 AM) (03/08/16 5:21 AM) MPV [7.4-10.4 fL] 10.8 fL 10.5 fL 10.9 fL *HI* *HI* *HI* (03/10/16 5:30 AM) (03/09/16 6:00 AM) (03/08/16 5:21 AM) Segs [45.0-75.0 %] 65.9 % 75.1 % 83.3 % (03/10/16 5:30 AM) *HI* *HI* (03/09/16 6:00 AM) (03/08/16 5:21 AM) Lymphocytes [20.0-40.0 %] 18.3 % 11.2 % 6.8 % *LOW* *LOW* *LOW* (03/10/16 5:30 AM) (03/09/16 6:00 AM) (03/08/16 5:21 AM) Monocytes [2.0-12.0 %] 12.2 % 11.4 % 8.7 % *HI* (03/09/16 6:00 AM) (03/08/16 5:21 AM) (03/10/16 5:30 AM) Eosinophils [0.0-4.0 %] 3.2 % 2.1 % 0.9 % (03/10/16 5:30 AM) (03/09/16 6:00 AM) (03/08/16 5:21 AM) Basophils [0.0-1.0 %] 0.4 % 0.2 % 0.3 % (03/10/16 5:30 AM) (03/09/16 6:00 AM) (03/08/16 5:21 AM) Segs-Bands # [1.5-8.1 K/CMM] 3.5 K/CMM 4.6 K/CMM 6.8 K/CMM (03/10/16 5:30 AM) (03/09/16 6:00 AM) (03/08/16 5:21 AM) Lymphocytes # [1.0-5.5 1.0 K/CMM 0.7 K/CMM 0.6 K/CMM K/CMM] (03/10/16 5:30 AM) *LOW* *LOW* (03/09/16 6:00 AM) (03/08/16 5:21 AM) Monocytes # [0.0-0.8 K/CMM] 0.7 K/CMM 0.7 K/CMM 0.7 K/CMM (03/10/16 5:30 AM) (03/09/16 6:00 AM) (03/08/16 5:21 AM) Eosinophils # [0.0-0.5 0.2 K/CMM 0.1 K/CMM 0.1 K/CMM K/CMM] (03/10/16 5:30 AM) (03/09/16 6:00 AM) (03/08/16 5:21 AM) PT [12.0-14.7 seconds] 13.4 seconds (03/06/16 4:25 AM) INR [0.85-1.17] 0.99 (03/06/16 4:25 AM) PTT [22.9-35.8 seconds] 28.2 seconds (03/06/16 4:25 AM) MOLECULAR DIAGNOSTIC Most recent to oldest [Reference Range]: 1 2 3 CMV PCR Qnt Not Detected (03/06/16 10:13 AM) CMV PCR Qnt (log) <2.4 log *NA* (03/06/16 10:13 AM) Source BK Virus PCR Qnt Blood *NA* (03/06/16 10:13 AM) BK Virus PCR Qnt 1615 copies/mL 1 *NA* (03/06/16 10:13 AM) BK Virus PCR Qnt (log) 3.2 log *NA* (03/06/16 10:13 AM) EBV PCR Qnt Not Detected (03/06/16 10:13 AM) EBV PCR Qnt (log) <2.8 log *NA* (03/06/16 10:13 AM) 1Result Comment: "Significant Findings called to Bernardino Coombs at 0912 2015 by ss. Read Back OK." Immunizations Not Given Vaccine Date Status Refusal Reason influenza virus vaccine, inactivated 03/08/16 Not Given Patient Refuses pneumococcal 23-valent vaccine 03/08/16 Not Given Patient Refuses Procedures Procedure Date Related Diagnosis Body Site [...] at age: 0.0; Stopped at age: 1; Ready to change: No; Concerns about tobacco use in household: No; Exposure to Tobacco Smoke None; Cigarette Smoking Last 365 Days No; Reg Smoking Cessation Counseling No Assessment and Plan Extracted from: Title: Transplant Surgery Author: Ligia Rico NP, NP Date: 03/10/16 Discharge Summary PATIENT NAME: PEDRO CORTEZ ATTENDING PHYSICIAN: ASAF HOFFMAN DATE OF ADMISSION: 03/06/2016 DATE OF DISCHARGE: 03/10/2016 ADMISSION DIAGNOSIS: 1. Incarcerated incisional hernia. 2. Small-bowel obstruction. 3. Acute kidney injury. 4. HX of living unrelated kidney transplant in 2012. 5. DM Type II. DISCHARGE DIAGNOSIS: 1. Incarcerated incisional hernia. 2. Small-bowel obstruction. 3. HX of living unrelated kidney transplant in 2012. 4. DM Type II. 5. Gastroparesis. CONSULTS: Transplant Nephrology: Dr. King. PROCEDURE: 03/06/2016: Open incisional hernia repair with mesh. 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 She presented with abdom inal pain, nausea and vomiting to an outside facility where CT abdomen and pelvis was performed demonstrating an apparent incarcerated incisional hernia in her right lower quadrant at the site of her pr evious renal transplant; patient was transferred to this facility for advanced level of care. After risks and benefits of the operation were discussed with her , she has elected to proceed with procedure . Patient was taken to OR on 03/06 and open incisional hernia repair with mesh was performed without complications. Patient s postoperative course have been unremarkable with appropriate management. Robbin lopez has been able to tolerate carbohydrate controlled diet and positive for return of adequate bowel function. Patient continues to have improved kidney function without any indication for rejection a nd need for biopsy or aggressive treatment while she remains on appropriate doses of immunosuppression, BK PCR with suppressed copies, CMV and EBV PCR remains undetectable; Leflunomide discontinued duri ng this hospital stay, while patient had an expected operative recovery. Patient is ambulating by self. Vital signs remain stable. Patient has been afebrile during the past 12-24 hours. On discharge jeison e, patient and daughter are in agreement of being discharge process. Medications were delivered by [facility]. DISCHARGE PHYSICAL EXAMINATION: VITAL SIGNS: Temperature 98.0, blood pressure 117/74, pulse 63, respiration 18 , O2 sat 96% on room air, weight 84.09 kg. Pain 3/10. CONSTITUTIONAL: Awake, alert and oriented x 3, in no acute distress. HEENT: Normocephalic, no scleral icterus, no papilledema. Moist oral mucosa. NECK: Supple, no JVD. CHEST: Clear to auscultation bilaterally, no wheezes. CARDIOVASCULAR: Regular heart rate and rhythm present, no murmur. ABDOMEN: Soft, non-distended. Normoactive bowel sounds present in all 4 quadrants. RLQ abd incision with surgical glue open to air without induration or erythema. No hepatosplenomegaly. Abdominal binder in place. EXTREMITIES: No cyanosis, no edema. MUSCULOSKELETAL: Active range of motion, ambulating by self. NEUROLOGIC: No focal deficits and no tremors. PSYCHIATRIC: Good judgment and insight. DISCHARGE MEDICATIONS: 1. Prograf 1 mg p.o. q. 12 hours. 2. Prednisone 5 mg p.o. daily. 3. Protonix 40 mg p.o. daily. 4. Carvedilol 25 mg p.o. q. 12 hours. 5. Nifedipine ERT 90 mg p.o. q. 12 hours. 6. Hydralazine 25 mg p.o. q. 12 hours. 7. Simvastatin 20 mg p.o. bedtime. 8. Lyrica 75 mg p.o. q. 12 hours. 9. Cholecalciferol 2000 IU p.o. daily. 10. Metoclopramide 10 mg p.o. t.i.d. before meals. 11. Senna 8.6 mg p.o. b.i.d. 12. Colace 100 mg p.o. b.i.d. 13. Tramadol 50 mg 1 tab p.o. q. 6 hours p.r.n. for pain. Quantity #50. 14. Levemir FlexPen 10 units s.c. breakfast and bedtime. 15. NovoLog FlexPen 5 unit s.c. t.i.d. before meals. DISCHARGE CONDITION: Stable. DISPOSITION: Discharged to home with family members. DISCHARGE INSTRUCTIONS: 1. Patient advised to continue carbohydrate controlled diet and to advance diet as tolerated. Use insulin as directed. 2. To continue activities and ambulation as tolerated. Patient may shower, but no bathing and no soaking at this time. To avoid lifting anything more than 5 to 10 pounds. Limit straining or bending for 3-4 weeks. Advised to avoid driving while taking pain medication and also to continue to take stool softener while taking the pain medication. 3. The patient instructed to go to the ER if she experiences any of the following: Temperature greater or up to 100.5, nausea, vomiting, p.o. liquid intolerance, bleeding, and shortness of breath, chest pain and acute abdominal pain. Instructed to notify post-kidney civil preparedness coordinator if she experiences signs of infection over the wound site such as worsening redness, swelling, tenderness, and drainage. FOLLOWUP: 1. [facility] on 03[facility]16[facility]2016 for glucose management. 2. Post-op visit with Dr. Hoffman and blood work at the post-kidney transplant clinic for blood work (including BK PCR & DSA) on 03/23/2016 at 0800. Phone number and instructions provided to patient and daughter at the time of discharge with understanding. email marketing manager utilized for instructions. Attending Surgeon: I have seen and examined the patient and formulated the plan of care as noted above. I have review the above note and the pertinent laboratory and clinical findings on 03/10/2016 , and have formulated the plan of care with the team. Mrs. Cortez is stable for discharge today with good allograft function. Greater than 30 minutes was spent in the coordination of this discharge. Extracted from: Title: Transplant Nephrology Author: Deb Arauz Date: Progress Note Transplant Nephrology Progress Note Subjective: Feels well. Edy liquids BMx1 Objective: Medications (23) Active Scheduled: (9) carvedilol 25 mg TAB 25 mg 1 tab, PO, Q12H insulin aspart 100 unit/ml 3ml Pen 3 unit 0.03 mL, SUB-Q, TID-Before Meals insulin DETEMIR 5 unit/0.05 mL INJ SYR 10 unit 0.1 mL, SUB-Q, Q12H metoclopramide 10 mg/10 ml UD SOLN 10 mg 10 mL, PO, TID-Before Meals NIFEdipine 90 mg ERT CC 90 mg 1 tab, PO, Q12H pantoprazole 40 mg ECT 40 mg 1 tab, PO, Before Dinner potassium-sodium phosphate 1.25gm pkt 1 pkt, PO, TID-Before Meals predniSONE 5 mg TAB 5 mg 1 tab, PO, Daily tacrolimus 1 mg CAP 1 mg 1 cap, PO, [id number]-[id number] Continuous: (0) PRN: (14) Dextrose 50% 50 ml INJ syringe 12.5 gm 25 mL, IVP, PRN Dextrose 50% 50 ml INJ syringe 25 gm 50 mL, IVP, PRN glucagon recombinant 1 mg PDR 1 mg, IM, PRN hydrALAZINE 20 mg/1 ml VL 20 mg 1 mL, IV, Q4H HYDROmorphone 2 mg/1 ml INJ AMP 0.2 mg 0.1 mL, IVP, Q4H insulin aspart 100 unit/ml 3ml Pen 2 unit 0.02 mL, SUB-Q, TID-Before Meals insulin aspart 100 unit/ml 3ml Pen 4 unit 0.04 mL, SUB-Q, TID-Before Meals insulin aspart 100 unit/ml 3ml Pen 6 unit 0.06 mL, SUB-Q, TID-Before Meals insulin aspart 100 unit/ml 3ml Pen 8 unit 0.08 mL, SUB-Q, TID-Before Meals insulin aspart 100 unit/ml 3ml Pen 10 unit 0.1 mL, SUB-Q, TID-Before Meals phenol-sodium phenolate 1.4% throat SPR 180 ml 1 spray, TOP, BID promethazine 25 mg/1 ml INJ 12.5 mg 0.5 mL, IVPB, Q4H sodium chloride 0.9% 10ml sterile flush syr BD 10 ml, IVP, PRN traMADol 50 mg TAB 50 mg 1 tab, PO, Q6H I&O Record In Out Bal 03/10 24hr Tot 10 0 10 03/09 24hr Tot 706 1500 [phone] Vital Signs (last 24 hrs) Last Charted Temp Oral 98.1 DegF (MAR 10 08:10) Heart Rate Peripheral 62 bpm (MAR 10 08:10) Resp Rate 18 BRMIN (MAR 10 08:10) SBP 136 mmHg (MAR 10 08:10) DBP 84 mmHg (MAR 10 08:10) SpO2 94 % (MAR 10 08:10) Weight 84.091 kg (MAR 10 05:34) PHYSICAL EXAMINATION General: NAD EYES: Normal conjunctivae, normal pupil size HEENT: Ears/nose normal. No oral lesions. NECK: No masses RESP: Respiratory effort normal, CTAB w/o wheezes or rhonchi CV: RRR no mrg ABD: soft NT/ND, NABS, no organomegaly SAHARA: No gross joint deformities SKIN: No visible rashes EXT 2 + pulses bilat upper/lower ext Labs (Last four charted values) WBC 5.4 (MAR 10) 6.1 (MAR 09) 8.1 (MAR 08) 8.7 (MAR 07) Hgb 12.1 (MAR 10) L 11.9 (MAR 09) 12.3 (MAR 08) L 11.8 (MAR 07 ) Hct L 35.5 (MAR 10) L 35.2 (MAR 09) 36.9 (MAR 08) 36.1 (MAR 07 ) Plt L 107 (MAR 10) L 98 (MAR 09) L 107 (MAR 08) L 96 (MAR 07) Na 143 (MAR 10) 143 (MAR 09) 144 (MAR 08) 145 (MAR 07) K L 3.4 (MAR 10) 3.8 (MAR 09) 3.9 (MAR 08) 4.9 (MAR 07) CO2 L 23 (MAR 10) L 22 (MAR 09) L 21 (MAR 08) L 17 (MAR 07) Cl H 111 (MAR 10) H 112 (MAR 09) H 112 (MAR 08) H 119 (MAR 07 ) Cr 1.22 (MAR 10) 1.13 (MAR 09) 1.18 (MAR 08) H 1.52 (MAR 07) BUN 21 (MAR 10) H 26 (MAR 09) H 28 (MAR 08) H 33 (MAR 07) Glucose Random H 112 (MAR 10) H 148 (MAR 09) H 200 (MAR 08) H 224 (MAR 07 ) Mg 2.0 (MAR 10) 2.4 (MAR 09) 2.4 (MAR 08) 2.3 (MAR 07) Phos 2.6 (MAR 10) L 2.1 (MAR 09) C 1.2 (MAR 08) L 2.4 (MAR 07) Ca 8.8 (MAR 10) 9.0 (MAR 09) 8.7 (MAR 08) 8.9 (MAR 07) PT 13.4 (MAR 06) INR 0.99 (MAR 06) PTT 28.2 (MAR 06) Problem List: incarcerated incisional hernia, s/p reduction 03/06/16 LURT 05/23/13 CKD stage IIIt baseline Cr 1.6 Immunosuppressed nausea/emesis/abd pain secondary to above hx of BK viremia DM type II Plan: S/p [facility] Renal transplant 05/23/13 - RFP w ca/mag/ph Q 24h - Imaging: CT abd from OSH done; no additional imaging at this time - strict I/Os - Daily weights - IS: tacro 1 mg/1 mg; lefunomide -HOLD ; Pred 5mg PO daily - tac trough QAM - CMV, neg; BK PCR 1600 (which is downtrending from prior). Incarcerated incisional hernia - edy PO, no emesis, BM x1 - reglan PO scheduled. - advance to regular diet - post op follow up with Dr. Hoffman in transplant clinic Mar 23 Hypertension - cont carvedilol, nifedipine --restart home hydralazine at discharge DM - decreased to 10 units of levemir BID - will send home with this regimen, follow up w wellness next week for titration Hypophos- Repleted Dispo: home today when tolerates meal Case discussed with attending We will follow along. Kim Arauz MD Nephrology Fellow [phone] Addendum by Shanae Toussaint I have evaluated the data and medications and have seen and examined the patient with the house staff and or Physician Knitter Mechanic/Nurse Practitioner and agree with the house staff's and or Physician As Tika PAGAN on 03/10/2016 18:28 sistant's/Nurse Practitioner's assessment and plan as above. 1) pt edy regular diet today, will d/c home, pt to f/u with wellness next , txp surg in 2 weeks with labs checking for bk, dsa, will d/c arava today, bk has improved
--- OUTSIDE RECORDS SUMMARY | 2018-08-01 03:18 | XMS REPORT | Summary of Care ---
:1965 Author Organization [facility] Address [address] [place] [id number]- Encounter HQ Bob(FIN) [phone] Date(s): 05/02/16 - 05/31/[address] [id number]- [place] Discharge Disposition: Home or Self Care Attending Physician: Shanae Toussaint MD Referring Physician: Shanae Toussaint MD Vital Signs Most recent to oldest [Reference Range]: 1 2 Height 162.56 cm 162.56 cm (05/30/16 3:04 PM) (05/02/16 2:48 PM) Blood Pressure [90-140/60-90 mmHg] 131/83 mmHg 106/74 mmHg (05/30/16 3:04 PM) (05/02/16 2:48 PM) Peripheral Pulse Rate [60-100 bpm] 59 bpm 60 bpm *LOW* (05/02/16 2:48 PM) (05/30/16 3:04 PM) Weight 88.636 kg 88 kg (05/30/16 3:04 PM) (05/02/16 2:48 PM) Body Mass Index 33.54 m2 33.3 m2 (05/30/16 3:04 PM) (05/02/16 2:48 PM) Problem List Condition Effective Dates Status Health Status Informant 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 Chronic kidney disease Resolved (CKD)(Confirmed) CMV (cytomegalovirus)(Confirmed) Resolved ESRD (end stage renal Resolved disease)(Confirmed) Polycythemia(Confirmed) Resolved History of renal Resolved transplant(Confirmed) HTN - Hypertension(Confirmed) Resolved Hyperlipidemia(Confirmed) Resolved Obesity(Confirmed) Active DM (diabetes mellitus) type II Resolved controlled with renal manifestation(Confirmed) Allergies, Adverse Reactions, Alerts Substance Reaction Severity Status NKDA Active Medications No data available for this section Results SPECIAL CHEMISTRY Most recent to oldest [Reference Range]: 1 Hgb A1C [<=5.6 %] 6.5 % *HI* (05/02/16 2:05 PM) Immunizations Not Given Vaccine Date Status Refusal [...]
--- OUTSIDE RECORDS SUMMARY | 2018-08-01 03:18 | XMS REPORT | Summary of Care ---
:1965 Author Organization [facility] Address [address] [place] [id number] Encounter HQ Encntr_alikelly(FIN) [id number] Date(s): 06/06/16 - 06/10/16 [facility] [address] [place] [address] Professional Services provided by [facility] [place] [address]- Discharge Disposition: Home or Self Care Attending Physician: Dharmesh Melchor MD Admitting Physician: Alvarado Adam MD Vital Signs Most recent to oldest 1 2 3 [Reference Range]: Height 162.56 cm 162.56 cm (06/07/16 2:13 AM) (06/06/16 3:29 PM) Temperature Oral [96.4-99.1 98.0 DegF 98.2 DegF 97.4 DegF DegF] (06/10/16 11:42 AM) (06/10/16 7:15 AM) (06/10/16 4:40 AM) Blood Pressure 137/83 mmHg 141/86 mmHg 132/81 mmHg [90-140/60-90 mmHg] (06/10/16 11:42 AM) *HI* (06/10/16 4:40 AM) (06/10/16 7:15 AM) Respiratory Rate [14-20 20 BRMIN 20 BRMIN 16 BRMIN BRMIN] (06/10/16 11:42 AM) (06/10/16 9:00 AM) (06/10/16 7:15 AM) Peripheral Pulse Rate 63 bpm 67 bpm 60 bpm [60-100 bpm] (06/10/16 11:42 AM) (06/10/16 7:15 AM) (06/10/16 4:40 AM) Weight 89.682 kg 49.545 kg 86.364 kg (06/07/16 11:24 AM) (06/07/16 2:13 AM) (06/06/16 3:29 PM) Body Mass Index 18.75 m2 32.68 m2 (06/07/16 2:13 AM) (06/06/16 3:29 PM) Problem List Condition Effective Dates Status [...] Substance Reaction Severity Status NKDA Active Medications albuterol-ipratropium 2.5-0.5 mg inhalation solution 3 ml, Route: NEB, Drug Form: SOLN, Dosing Weight 89.682, kg, PRN, PRN Respiratory Protocol, Start date: 06/07/16 14:26:00 MOTION PICTURE COMMENTATOR, Duration: 30 day, Stop date: 07/07/16 14:25:00 MOTION PICTURE COMMENTATOR Notes: (Same as: Duoneb) Start Date: 06/07/16 Stop Date: 06/10/16 Status: Discontinuedazithromycin 250 mg, 1 tab, Route: PO, Drug form: TAB, [id number], Dosing Weight 49.545, kg, Start date: 06/08/16 11:00:00 MOTION PICTURE COMMENTATOR, Duration: 4 day, Stop date: 06/11/16 11:00: 00 MOTION PICTURE COMMENTATOR Notes: Take 1 hour before or 2 hours after meals.(Same As: Zithromax) Start Date: 06/08/16 Stop Date: 06/09/16 Status: Discontinuedazithromycin 500 mg, 2 tab, Route: PO, Drug form: TAB, ONCE, Dosing Weight 49.545, kg, Start date: 06/07/16 10:24:00 MOTION PICTURE COMMENTATOR, Stop date: 06/07/16 10:24:00 MOTION PICTURE COMMENTATOR Notes: Take 1 hour before or 2 hours after meals.(Same As: Zithromax) Start Date: 06/07/16 Stop Date: 06/07/16 Status: Completedcarvedilol 25 mg, 1 tab, Route: PO, Drug form: TAB, Q12H, Dosing Weight 86.364, kg, Start date: 06/07/16 9:00:00 MOTION PICTURE COMMENTATOR, Duration: 30 day, Stop date: 07/06/16 21:00:00 MOTION PICTURE COMMENTATOR Notes: Give with food. (Same As: Coreg) Start Date: 06/07/16 Stop Date: 06/10/16 Status: Discontinuedcephalexin 500 mg oral capsule 500 mg=1 cap, PO, [id number], X 14 day, # 28 cap, 0 Refill(s) Start Date: 06/10/16 Stop Date: 06/24/16 Status: OrderedDextrose 50% Syringe 12.5 gm, 25 mL, Route: IVP, Drug Form: INJ, Dosing Weight 49.545, kg, PRN, PRN Blood Glucose Results, Start date: 06/07/16 9:39:00 MOTION PICTURE COMMENTATOR, Duration: 30 day, Stop date: 07/07/16 9:38:00 MOTION PICTURE COMMENTATOR Start Date: 06/07/16 Stop Date: 06/10/16 Status: DiscontinuedDextrose 50% Syringe 25 gm, 50 mL, Route: IVP, Drug Form: INJ, Dosing Weight 49.545, kg, PRN, PRN Blood Glucose Results, Start date: 06/07/16 9:39:00 MOTION PICTURE COMMENTATOR, Duration: 30 day, Stop date: 07/07/16 9:38:00 MOTION PICTURE COMMENTATOR Start Date: 06/07/16 Stop Date: 06/10/16 Status: Discontinueddocusate 100 mg, 1 cap, Route: PO, Drug form: CAP, BID, Dosing Weight 86.364, kg, PRN Constipation, Start date: 06/06/16 21:23:00 MOTION PICTURE COMMENTATOR, Duration: 30 day, Stop date: 21:22:00 MOTION PICTURE COMMENTATOR Notes: (Same as: Colace) (Do Not Crush) Start Date: 06/06/16 Stop Date: 06/10/16 Status: DiscontinuedElectrolyte Solution 1000 mL 1,000 mL, Rate: 75 ml/hr, Infuse over: 13.3 hr, Route: IV, Dosing Weight 89.682 kg, Total Volume: 1,000, Start date: 06/08/16 15:16:00 MOTION PICTURE COMMENTATOR, Duration: 30 day, Stop date: 07/08/16 15:15:00 MOTION PICTURE COMMENTATOR Start Date: 06/08/16 Stop Date: 06/08/16 Status: Deletedgabapentin 100 mg, 1 cap, Route: PO, Drug form: CAP, Q8H-01, Dosing Weight 89.682, kg, Start date: 06/10/16 10:30:00 MOTION PICTURE COMMENTATOR, Duration: 30 day, Stop date: 07/10/16 9:00: 00 MOTION PICTURE COMMENTATOR Notes: (Same as: Neurontin) Start Date: 06/10/16 Stop Date: 06/10/16 Status: Discontinuedgabapentin 100 mg oral capsule 100 mg=1 cap, PO, TID, # 90 cap, 1 Refill(s) Start Date: 06/10/16 Status: Orderedglucagon 1 mg, Route: IM, Drug form: PDR/INJ, PRN, Dosing Weight 49.545, kg, PRN Blood Glucose Results, Startdate: 06/07/16 9:39:00 MOTION PICTURE COMMENTATOR, Duration: 30 day, Stop date: 07/07/16 9:38:00 MOTION PICTURE COMMENTATOR Start Date: 06/07/16 Stop Date: 06/10/16 Status: Discontinuedheparin 5000 units/mL injectable solution 5,000 unit, 1 mL, Route: SUB-Q, Drug form: INJ, Q8H, Dosing Weight 86.364, kg, Start date: 06/07/16 0:00:00 MOTION PICTURE COMMENTATOR, Duration: 30 day, Stop date: 07/06/16 16:00: 00 MOTION PICTURE COMMENTATOR Notes: porcine heparin Start Date: 06/07/16 Stop Date: 06/10/16 Status: DiscontinuedhydrALAZINE 25 mg oral tablet 25 mg, PO, BID, # 60 tab, 0 Refill(s) Start Date: 06/10/16 Stop Date: 07/10/16 Status: Orderedinsulin aspart 6 unit, 0.06 mL, Route: SUB-Q, Drug form: SOLN, TID-Before Meals, Dosing Weight 49.545, kg, PRN Blood Glucose Results, Start date: 06/07/16 9:39:00 MOTION PICTURE COMMENTATOR, Duration: 30 day, Stop date: 07/07/16 9:38:00 MOTION PICTURE COMMENTATOR Notes: Roll in palms of hands gently; Do not shake vigorously. (Same as: NovoLOG)"single patient use only"WASTE: F/P - Black; E - Municipal Trash Bin Stable for 28 days at room temperature.Expires in days from Date Start Date: 06/07/16 Stop Date: 06/10/16 Status: Discontinuedinsulin aspart 4 unit, 0.04 mL, Route: SUB-Q, Drug form: SOLN, TID-Before Meals, Dosing Weight 49.545, kg, PRN Blood Glucose Results, Start date: 06/07/16 9:39:00 MOTION PICTURE COMMENTATOR, Duration: 30 day, Stop date: 07/07/16 9:38:00 MOTION PICTURE COMMENTATOR Notes: Roll in palms of hands gently; Do not shake vigorously. (Same as: [employer])"single patient use only"WASTE: F/P - Black; E - Municipal Trash Bin Stable for 28 days at room temperature.Expires in days from Date Start Date: 06/07/16 Stop Date: 06/10/16 Status: Discontinuedinsulin aspart 2 unit, 0.02 mL, Route: SUB-Q, Drug form: SOLN, TID-Before Meals, Dosing Weight 49.545, kg, PRN Blood Glucose Results, Start date: 06/07/16 9:39:00 MOTION PICTURE COMMENTATOR, Duration: 30 day, Stop date: 07/07/16 9:38:00 MOTION PICTURE COMMENTATOR Notes: Roll in palms of hands gently; Do not shake vigorously. (Same as: NovoLOG)"single patient use only"WASTE: F/P - Black; E - Municipal Trash Bin Stable for 28 days at room temperature.Expires in days from Date Start Date: 06/07/16 Stop Date: 06/10/16 Status: Discontinuedinsulin aspart 10 unit, 0.1 mL, Route: SUB-Q, Drug form: SOLN, TID-Before Meals, Dosing Weight 49.545, kg, PRN Blood Glucose Results, Start date: 06/07/16 9:39:00 MOTION PICTURE COMMENTATOR, Duration: 30 day, Stop date: 07/07/16 9:38:00 MOTION PICTURE COMMENTATOR Notes: Roll in palms of hands gently; Do not shake vigorously. (Same as: NovoLOG)"single patient use only"WASTE: F/P - Black; E - Municipal Trash Bin Stable for 28 days at room temperature.Expires in days from Date Start Date: 06/07/16 Stop Date: 06/10/16 Status: Discontinuedinsulin aspart 8 unit, 0.08 mL, Route: SUB-Q, Drug form: SOLN, TID-Before Meals, Dosing Weight 49.545, kg, PRN Blood Glucose Results, Start date: 06/07/16 9:39:00 MOTION PICTURE COMMENTATOR, Duration: 30 day, Stop date: 07/07/16 9:38:00 MOTION PICTURE COMMENTATOR Notes: Roll in palms of hands gently; Do not shake vigorously. (Same as: NovoLOG)"single patient use only"WASTE: F/P - Black; E - Municipal Trash Bin Stable for 28 days at room temperature.Expires in days from Date Start Date: 06/07/16 Stop Date: 06/10/16 Status: DiscontinuedIsolyte S (PH 7.4) 1000 mL 1,000 mL 1,000 mL, Rate: 75 ml/hr, Infuse over: 13.3 hr, Route: IV, Dosing Weight 89.682 kg, Total Volume: 1,000, Start date: 06/08/16 15:35:00 MOTION PICTURE COMMENTATOR, Duration: 30 day, Stop date: 07/08/16 15:34:00 MOTION PICTURE COMMENTATOR Notes: (Same as: Isolyte S PH 7.4) Start Date: 06/08/16 Stop Date: 06/10/16 Status: DiscontinuedKeflex 250 mg, Route: PO, Drug form: CAP, Q12H, Dosing Weight 89.682, kg, Start date: 06/09/16 21:00:00 MOTION PICTURE COMMENTATOR, Duration: 30 day, Stop date: 07/09/16 9:00:00 MOTION PICTURE COMMENTATOR Start Date: 06/09/16 Stop Date: 06/09/16 Status: DeletedKeflex 500 mg, 1 cap, Route: PO, Drug form: CAP, [id number], Start date: 06/09/16 17:00: 00 MOTION PICTURE COMMENTATOR, Duration: 30 day, Stop date: 07/09/16 5:00:00 MOTION PICTURE COMMENTATOR Notes: Take on empty stomach. (Same As: Keflex) Start Date: 06/09/16 Stop Date: 06/10/16 Status: DiscontinuedLevemir 15 unit, 0.15 mL, Route: SUB-Q, Drug form: SOLN, Q12H, Dosing Weight 89.682, kg , Start date: 06/08/16 9:00:00 MOTION PICTURE COMMENTATOR, Duration: 30 day, Stop date: 07/07/16 21:00: 00 MOTION PICTURE COMMENTATOR Notes: Same as LevemirDo not hold insulin without contacting prescriberWASTE: F/ P - Black; E - Municipal Trash Bin "single patient use only" Start Date: 06/08/16 Stop Date: 06/10/16 Status: DiscontinuedNifediac CC 90 mg, 1 tab, Route: PO, Drug form: ERTAB, Daily, Dosing Weight 86.364, kg, Start date: 06/09/16 9:00:00 MOTION PICTURE COMMENTATOR, Duration: 30 day, Stop date: 07/08/16 9:00:00 MOTION PICTURE COMMENTATOR Notes: (Same as:Adalat CC, Procardia XL) Give on empty stomach. Take 1 hour before or 2 hours aftermeal; "Avoid grapefruit and grapefruit juice". Do not crush Start Date: 06/09/16 Stop Date: 06/09/16 Status: DiscontinuedNifediac CC 90 mg, 1 tab, Route: PO, Drug form: ERTAB, Q12H, Dosing Weight 86.364, kg, Start date: 06/07/16 9:00:00 MOTION PICTURE COMMENTATOR, Duration: 30 day, Stop date: 07/06/16 21:00: 00 MOTION PICTURE COMMENTATOR Notes: (Same as:Adalat CC, Procardia XL) Give on empty stomach. Take 1 hour before or 2 hours aftermeal; "Avoid grapefruit and grapefruit juice". Do not crush Start Date: 06/07/16 Stop Date: 06/08/16 Status: DiscontinuedNifediac CC 90 mg oral tablet, extended release 90 mg=1 tab, PO, Q12H, # 60 tab, 5 Refill(s) Start Date: 06/10/16 Stop Date: 06/10/16 Status: DiscontinuedNIFEdipine 60 mg oral tablet, extended release 60 mg=1 tab, PO, Daily, # 30 tab, 0 Refill(s) Start Date: 06/10/16 Stop Date: 06/10/16 Status: DiscontinuedNIFEdipine 90 mg oral tablet, extended release 90 mg=1 tab, PO, Daily, # 90 tab, 0 Refill(s) Start Date: 06/10/16 Status: OrderedNS (Bolus) IV 500 mL, 500 ml/hr, Infuse Over: 1 hr, Route: IV, ONCE, Priority: STAT, Dosing Weight 86.364 kg, Start date: 06/06/16 18:45:00 MOTION PICTURE COMMENTATOR, Duration: 1 doses or times , Stop date: 06/06/16 18:45:00 MOTION PICTURE COMMENTATOR Start Date: 06/06/16 Stop Date: 06/06/16 Status: CompletedNS (Bolus) IV 500 mL, 500 ml/hr, Infuse Over: 1 hr, Route: IV, 500, Drug form: INJ, ONCE, Priority: STAT, Dosing Weight 86.364 kg, Start date: 06/07/16 0:39:00 MOTION PICTURE COMMENTATOR, Duration: 1 doses or times, Stop date: 06/07/16 0:39:00 MOTION PICTURE COMMENTATOR Start Date: 06/07/16 Stop Date: 06/07/16 Status: Completedondansetron 4 mg, 2 mL, Route: IVP, Drug form: INJ, Q6H, Dosing Weight 86.364, kg, PRN Nausea & Vomiting, Start date: 06/06/16 21:23:00 MOTION PICTURE COMMENTATOR, Duration: 30 day, Stop date: 07/06/16 21:22:00 MOTION PICTURE COMMENTATOR Notes: (Same as: Darryl) MEDICATION WASTE Product Size: 4 mgProduct Wasted: ___ mg Start Date: 06/06/16 Stop Date: 06/10/16 Status: Discontinuedondansetron 4 mg, Route: IVP, Drug form: INJ, ONCE, Dosing Weight 86.364, kg, Priority: STAT , Start date: 06/06/16 19:01:00 MOTION PICTURE COMMENTATOR, Stop date: 06/06/16 19:01:00 MOTION PICTURE COMMENTATOR Start Date: 06/06/16 Stop Date: 06/06/16 Status: Completedpantoprazole 40 mg, 1 tab, Route: PO, Drug form: ECTAB, Before Breakfast, Dosing Weight 86.364, kg, Start date: 06/07/16 9:00:00 MOTION PICTURE COMMENTATOR, Stop date: 07/06/16 7:30:00 MOTION PICTURE COMMENTATOR Notes: Tablet should not be chewed or crushed.(Same as: Protonix) Start Date: 06/07/16 Stop Date: 06/10/16 Status: Discontinuedpantoprazole 40 mg oral enteric coated tablet 40 mg=1 tab, PO, Daily, # 30 tab, 3 Refill(s) Start Date: 06/10/16 Stop Date: 10/08/16 Status: Orderedpotassium chloride 20 mEq oral tablet, extended release 40 mEq, 2 tab, Route: PO, Drug form: ERTAB, BID, Dosing Weight 89.682, kg, Start date: 06/10/16 10:30:00 MOTION PICTURE COMMENTATOR, Duration: 1 day, Stop date: 06/11/16 9:00:00 MOTION PICTURE COMMENTATOR Notes: (Same as: K-Dur 20)"Do Not Crush" With food and full glass of water Start Date: 06/10/16 Stop Date: 06/10/16 Status: Discontinuedpotassium chloride 20 mEq oral tablet, extended release 40 mEq, 2 tab, Route: PO, Drug form: ERTAB, ONCE, Dosing Weight 89.682, kg, Start date: 06/09/16 8:20:00 MOTION PICTURE COMMENTATOR, Stop date: 06/09/16 8:20:00 MOTION PICTURE COMMENTATOR Notes: (Same as: K-Dur 20)"Do Not Crush" With food and full glass of water Start Date: 06/09/16 Stop Date: 06/09/16 Status: Completedpotassium phosphate + sodium chloride 0.9% INJ 250 mL 15 mmol, 5 mL, Route: IVPB, ONCE, Dosing Weight 89.682, kg, Start date: 18:39:00 MOTION PICTURE COMMENTATOR, Stop date: 06/07/16 18:39:00 MOTION PICTURE COMMENTATOR Notes: (Same as: K Phosphate.) 1 mMol phoshate has 1.47 mEq potassium Infuse over 4 hours Start Date: 06/07/16 Stop Date: 06/07/16 Status: CompletedpredniSONE 5 mg, 1 tab, Route: PO, Drug form: TAB, Daily, Dosing Weight 86.364, kg, Start date: 06/07/16 9:00:00 MOTION PICTURE COMMENTATOR, Duration: 30 day, Stop date: 07/06/16 9:00:00 MOTION PICTURE COMMENTATOR Notes: Take with food. Start Date: 06/07/16 Stop Date: 06/10/16 Status: DiscontinuedpredniSONE 5 mg oral tablet 5 mg=1 tab, PO, Daily, X 30 day, # 30 tab, 11 Refill(s) Start Date: 06/10/16 Stop Date: 06/05/17 Status: OrderedProcardia XL 60 mg, 1 tab, Route: PO, Drug form: ERTAB, Daily, Dosing Weight 86.364, kg, Start date: 06/10/16 9:00:00 MOTION PICTURE COMMENTATOR, Duration: 30 day, Stop date: 07/09/16 9:00:00 MOTION PICTURE COMMENTATOR Notes: (Same as: Adalat CC, Procardia XL) Give on empty stomach. Take 1 hour before or 2 hours after meal; "Avoid grapefruit and grapefruit juice". Do not crush Start Date: 06/10/16 Stop Date: 06/10/16 Status: DiscontinuedPrograf 0.5 mg, 1 cap, Route: PO, Drug form: CAP, QPM, Start date: 06/07/16 20:00:00 MOTION PICTURE COMMENTATOR , Duration: 30 day, Stop date: 07/06/16 20:00:00 MOTION PICTURE COMMENTATOR Notes: Avoid grapefruit and grapefruit juice.(Same As: Prograf) Start Date: 06/07/16 Stop Date: 06/10/16 Status: Discontinuedsimvastatin 20 mg, 1 tab, Route: PO, Drug form: TAB, Bedtime, Dosing Weight 86.364, kg, Start date: 06/07/16 21:00:00 MOTION PICTURE COMMENTATOR, Duration: 30 day, Stop date: 07/06/16 21:00: 00 MOTION PICTURE COMMENTATOR Notes: (Same as: Zocor) Start Date: 06/07/16 Stop Date: 06/10/16 Status: Discontinuedsimvastatin 20 mg oral tablet See Instructions, TAKE 1 TABLET BY MOUTH EVERY NIGHT AT BEDTIME, # 30 tab, 11 Refill(s) Start Date: 06/10/16 Status: Orderedsodium chloride 0.9% 1000 ml INJ 1,000 mL 1,000 mL, Rate: 75 ml/hr, Infuse over: 13.3 hr, Route: IV, Dosing Weight 86.364 kg, Total Volume: 1,000, Start date: 06/07/16 0:39:00 MOTION PICTURE COMMENTATOR, Duration: 30 day, Stop date: 07/07/16 0:38:00 MOTION PICTURE COMMENTATOR Start Date: 06/07/16 Stop Date: 06/08/16 Status: Discontinuedtacrolimus 1 mg, 2 cap, Route: PO, Drug form: CAP, QAM, Dosing Weight 86.364, kg, Start date: 06/07/16 9:00:00 MOTION PICTURE COMMENTATOR, Duration: 30 day, Stop date: 07/07/16 8:00:00 MOTION PICTURE COMMENTATOR Notes: Avoid grapefruit and grapefruit juice.(Same As: Prograf) Start Date: 06/07/16 Stop Date: 06/10/16 Status: Discontinuedtacrolimus 0.5 mg oral capsule See Instructions, 2 cap PO AM 1 cap PO PM, # 90 cap, 5 Refill(s), Z94.0 Start Date: 06/10/16 Status: OrderedTamiFLU 30 mg, 1 cap, Route: PO, Drug form: CAP, [id number], Dosing Weight 49.545, kg, CrCl > 10 to 30 ml/hr, Start date: 06/07/16 11:00:00 MOTION PICTURE COMMENTATOR, Duration: 5 day, Stop date: 06/11/16 11:00:00 MOTION PICTURE COMMENTATOR Notes: Same as: TamilfuTake with Food Start Date: 06/07/16 Stop Date: 06/09/16 Status: DiscontinuedTamiFLU 30 mg, Route: PO, Drug form: CAP, [id number], Dosing Weight 49.545, kg, CrCl > 10 to 30 ml/hr, Start date: 06/07/16 10:00:00 MOTION PICTURE COMMENTATOR, Duration: 5 day, Stop date: 06/27 10:00:00 MOTION PICTURE COMMENTATOR Start Date: 06/07/16 Stop Date: 06/07/16 Status: DeletedTylenol 650 mg, Route: PO, Drug form: TAB, ONCE, Dosing Weight 86.364, kg, Priority: STAT, Start date: 06/06/16 18:45:00 MOTION PICTURE COMMENTATOR, Stop date: 06/06/16 18:45:00 MOTION PICTURE COMMENTATOR Start Date: 06/06/16 Stop Date: 06/06/16 Status: CompletedTylenol 650 mg, 20.3 mL, Route: PO, Drug form: LIQ, ONCE, Dosing Weight 89.682, kg, Start date: 06/07/16 20:15:00 MOTION PICTURE COMMENTATOR, Stop date: 06/07/16 20:15:00 MOTION PICTURE COMMENTATOR Notes: Max ywdtxsyajrell=9405fg/day (4 gm/day). (Same as: Tylenol) Start Date: 06/07/16 Stop Date: 06/07/16 Status: CompletedVitamin D3 2,000 IntlUnit, 1 cap, Route: PO, Drug form: CAP, Daily, Dosing Weight 86.364, kg, Start date: 06/07/16 9:00:00 MOTION PICTURE COMMENTATOR, Stop date: 07/06/16 9:00:00 MOTION PICTURE COMMENTATOR Notes: Same as: Vitamin D3 Start Date: 06/07/16 Stop Date: 06/10/16 Status: DiscontinuedZosyn 3.375 gm, Route: IVPB, Drug form: PDR/INJ, [id number], Start date: 06/07/16 9:00:00 MOTION PICTURE COMMENTATOR, Duration: 30 day, Stop date: 07/07/16 1:00:00 MOTION PICTURE COMMENTATOR Notes: (Same as: Zosyn)Dosing based on Piperacillin component MEDICATION WASTE Product Size: 3375 mgProduct Wasted: ___ mg Start Date: 06/07/16 Stop Date: 06/09/16 Status: DiscontinuedZosyn 2.25 gm, Route: IVPB, Drug form: PDR/INJ, ABXQ6H, Dosing Weight 49.545, kg, Start date: 06/07/16 9:00:00 MOTION PICTURE COMMENTATOR, Duration: 30 day, Stop date: 07/07/16 3:00:00 MOTION PICTURE COMMENTATOR Start Date: 06/07/16 Stop Date: 06/07/16 Status: Deleted Results ELECTROLYTES Most recent to oldest 1 2 3 [Reference Range]: Sodium Lvl [135-145 mEq/L] 145 mEq/L 142 mEq/L 139 mEq/L (06/10/16 5:17 AM) (06/09/16 1:34 AM) (06/08/16 4:22 AM) Potassium Lvl [3.5-5.1 3.4 mEq/L 3.3 mEq/L 3.7 mEq/L mEq/L] *LOW* *LOW* (06/08/16 4:22 AM) (06/10/16 5:17 AM) (06/09/16 1:34 AM) Chloride Lvl [95-109 mEq/L] 114 mEq/L 113 mEq/L 109 mEq/L *HI* *HI* (06/08/16 4:22 AM) (06/10/16 5:17 AM) (06/09/16 1:34 AM) CO2 [24-32 mEq/L] 20 mEq/L 19 mEq/L 16 mEq/L *LOW* *LOW* *LOW* (06/10/16 5:17 AM) (06/09/16 1:34 AM) (06/08/16 4:22 AM) AGAP [10.0-20.0 mEq/L] 14.4 mEq/L 13.3 mEq/L 17.7 mEq/L (06/10/16 5:17 AM) (06/09/16 1:34 AM) (06/08/16 4:22 AM) CHEM PANEL Most recent to oldest 1 2 3 [Reference Range]: Creatinine Lvl [0.50-1.40 1.39 mg/dL 1.84 mg/dL 2.37 mg/dL mg/dL] (06/10/16 5:17 AM) *HI* *HI* (06/09/16 1:34 AM) (06/08/16 4:22 AM) eGFR 44 mL/min/1.73m2 1 32 mL/min/1.73m2 2 23 mL/min/1.73m2 3 *NA* *NA* *NA* (06/10/16 5:17 AM) (06/09/16 1:34 AM) (06/08/16 4:22 AM) BUN [7-22 mg/dL] 17 mg/dL 20 mg/dL 27 mg/dL (06/10/16 5:17 AM) (06/09/16 1:34 AM) *HI* (06/08/16 4:22 AM) B/C Ratio [6-25] 12 (06/07/16 4:08 AM) Glucose Lvl [70-99 mg/dL] 96 mg/dL 132 mg/dL 287 mg/dL (06/10/16 5:17 AM) *HI* *HI* (06/09/16 1:34 AM) (06/08/16 4:22 AM) Total Protein [6.4-8.4 7.2 g/dL g/dL] (06/07/16 4:08 AM) Albumin Lvl [3.5-5.0 g/dL] 3.3 g/dL *LOW* (06/07/16 4:08 AM) Globulin [2.7-4.2 g/dL] 3.9 g/dL (06/07/16 4:08 AM) A/G Ratio [0.7-1.6] 0.8 (06/07/16 4:08 AM) Calcium Lvl [8.5-10.5 9.1 mg/dL 9.2 mg/dL 8.8 mg/dL mg/dL] (06/10/16 5:17 AM) (06/09/16 1:34 AM) (06/08/16 4:22 AM) Phosphorus [2.5-4.5 mg/dL] 2.9 mg/dL 1.6 mg/dL (06/08/16 4:22 AM) *LOW* (06/07/16 4:08 AM) Magnesium Lvl [1.8-2.4 2.0 mg/dL 2.0 mg/dL mg/dL] (06/08/16 4:22 AM) (06/07/16 4:08 AM) ALT [0-65 unit/L] 11 unit/L (06/07/16 4:08 AM) AST [0-37 unit/L] 10 unit/L (06/07/16 4:08 AM) Alk Phos [39-136 unit/L] 65 unit/L (06/07/16 4:08 AM) Bili Total [0.2-1.3 mg/dL] 0.7 mg/dL (06/07/16 4:08 AM) Lactic Acid Lvl [0.5-2.2 1.8 mMol/L 1.3 mMol/L mMol/L] (06/07/16 12:04 AM) (06/06/16 7:31 PM) 1Result Comment: The eGFR is calculated using [...] 1 2 3 Hgb A1C [<=5.6 %] 6.8 % *HI* (06/07/16 4:08 AM) TOXICOLOGY Most recent to oldest 1 2 3 [Reference Range]: Tacrolimus Lvl [5.0-15.0 5.5 ng/mL 4.3 ng/mL <2.0 ng/mL ng/mL] (06/10/16 5:17 AM) *LOW* *LOW* (06/08/16 7:40 AM) (06/07/16 4:08 AM) URINE AND STOOL Most recent to oldest [Reference Range]: 1 2 3 UA Turbidity [Clear] Cloudy Clear *ABN* (06/06/16 9:45 PM) (06/06/16 11:02 PM) UA Color [Yellow] Yellow Yellow *NA* *NA* (06/06/16 11:02 PM) (06/06/16 9:45 PM) UA pH [5.0-8.0] >=9.0 *ABN* (06/06/16 11:02 PM) UA pH [5.0-8.0] 5.5 (06/06/16 9:45 PM) UA Spec Grav [<=1.030] 1.010 1.015 (06/06/16 11:02 PM) (06/06/16 9:45 PM) UA Glucose [Negative] Negative Negative (06/06/16 11:02 PM) (06/06/16 9:45 PM) UA Blood [Negative] Negative Trace (06/06/16 11:02 PM) *ABN* (06/06/16 9:45 PM) UA Ketones [Negative mg/dL] 15 mg/dL >=80 mg/dL *ABN* *ABN* (06/06/16 11:02 PM) (06/06/16 9:45 PM) UA Protein [Negative mg/dL] 30 mg/dL *ABN* (06/06/16 11:02 PM) UA Protein [Negative] Negative (06/06/16 9:45 PM) UA Urobilinogen [0.1-1.0 EU/dL] 0.2 EU/dL 0.2 EU/dL (06/06/16 11:02 PM) (06/06/16 9:45 PM) UA Bili [Negative] Negative Small *NA* *ABN* (06/06/16 11:02 PM) (06/06/16 9:45 PM) UA Leuk Est [Negative] Small Negative *ABN* (06/06/16 9:45 PM) (06/06/16 11:02 PM) UA Nitrite [Negative] Negative Negative (06/06/16 11:02 PM) (06/06/16 9:45 PM) UA WBC [None Seen] None Seen (06/06/16 11:02 PM) UA WBC [None Seen /HPF] 0-2 /HPF (06/06/16 9:45 PM) UA RBC [0-2] None Seen None Seen (06/06/16 11:02 PM) (06/06/16 9:45 PM) UA Bacteria [None Seen /HPF] Many /HPF Few /HPF (06/06/16 11:02 PM) (06/06/16 9:45 PM) UA Sq Epi [Few /LPF] Few /LPF Moderate /LPF (06/06/16 11:02 PM) *ABN* (06/06/16 9:45 PM) UA Tr [place] [None Seen /HPF] Few /HPF (06/06/16 11:02 PM) UA Mucus [None Seen /LPF] Rare /LPF (06/06/16 9:45 PM) Micro? Performed (06/06/16 9:45 PM) HEMATOLOGY Most recent to oldest 1 2 3 [Reference Range]: WBC [3.7-10.4 K/CMM] 5.5 K/CMM 6.6 K/CMM 9.3 K/CMM (06/10/16 5:17 AM) (06/09/16 1:34 AM) (06/08/16 4:22 AM) RBC [4.20-5.40 M/CMM] 4.23 M/CMM 4.30 M/CMM 4.13 M/CMM (06/10/16 5:17 AM) (06/09/16 1:34 AM) *LOW* (06/08/16 4:22 AM) Hgb [12.0-16.0 g/dL] 11.7 g/dL 11.8 g/dL 11.5 g/dL *LOW* *LOW* *LOW* (06/10/16 5:17 AM) (06/09/16 1:34 AM) (06/08/16 4:22 AM) Hct [36.0-48.0 %] 35.0 % 35.2 % 34.0 % *LOW* *LOW* *LOW* (06/10/16 5:17 AM) (06/09/16 1:34 AM) (06/08/16 4:22 AM) MCV [80.0-98.0 fL] 82.6 fL 81.8 fL 82.5 fL (06/10/16 5:17 AM) (06/09/16 1:34 AM) (06/08/16 4:22 AM) MCH [27.0-31.0 pg] 27.6 pg 27.5 pg 27.9 pg (06/10/16 5:17 AM) (06/09/16 1:34 AM) (06/08/16 4:22 AM) MCHC [32.0-36.0 g/dL] 33.5 g/dL 33.7 g/dL 33.9 g/dL (06/10/16 5:17 AM) (06/09/16 1:34 AM) (06/08/16 4:22 AM) RDW [11.5-14.5 %] 13.8 % 13.7 % 13.8 % (06/10/16 5:17 AM) (06/09/16 1:34 AM) (06/08/16 4:22 AM) Platelet [133-450 K/CMM] 114 K/CMM 102 K/CMM 95 K/CMM *LOW* *LOW* *LOW* (06/10/16 5:17 AM) (06/09/16 1:34 AM) (06/08/16 4:22 AM) MPV [7.4-10.4 fL] 10.6 fL 11.0 fL 10.7 fL *HI* *HI* *HI* (06/10/16 5:17 AM) (06/09/16 1:34 AM) (06/08/16 4:22 AM) Segs [45.0-75.0 %] 64.2 % 72.0 % 83.2 % (06/10/16 5:17 AM) (06/09/16 1:34 AM) *HI* (06/08/16 4:22 AM) Lymphocytes [20.0-40.0 %] 21.2 % 12.3 % 6.4 % (06/10/16 5:17 AM) *LOW* *LOW* (06/09/16 1:34 AM) (06/08/16 4:22 AM) Monocytes [2.0-12.0 %] 12.0 % 13.9 % 10.2 % (06/10/16 5:17 AM) *HI* (06/08/16 4:22 AM) (06/09/16 1:34 AM) Eosinophils [0.0-4.0 %] 2.3 % 1.6 % 0.1 % (06/10/16 5:17 AM) (06/09/16 1:34 AM) (06/08/16 4:22 AM) Basophils [0.0-1.0 %] 0.3 % 0.2 % 0.1 % (06/10/16 5:17 AM) (06/09/16 1:34 AM) (06/08/16 4:22 AM) Segs-Bands # [1.5-8.1 K/CMM] 3.6 K/CMM 4.8 K/CMM 7.8 K/CMM (06/10/16 5:17 AM) (06/09/16 1:34 AM) (06/08/16 4:22 AM) Lymphocytes # [1.0-5.5 1.2 K/CMM 0.8 K/CMM 0.6 K/CMM K/CMM] (06/10/16 5:17 AM) *LOW* *LOW* (06/09/16 1:34 AM) (06/08/16 4:22 AM) Monocytes # [0.0-0.8 K/CMM] 0.7 K/CMM 0.9 K/CMM 0.9 K/CMM (06/10/16 5:17 AM) *HI* *HI* (06/09/16 1:34 AM) (06/08/16 4:22 AM) Eosinophils # [0.0-0.5 0.1 K/CMM 0.1 K/CMM K/CMM] (06/10/16 5:17 AM) (06/09/16 1:34 AM) MOLECULAR DIAGNOSTIC Most recent to oldest [Reference Range]: 1 2 3 Source Adenovirus PCR [employer]GAL SE[employer]ETARY Swab (06/08/16 12:50 AM) Source Parainfluenza Virus PCR [employer]ARY Swab (06/08/16 12:50 AM) Parainfluenza 1 PCR [Negative] Negative (06/08/16 12:50 AM) Parainfluenza 2 PCR [Negative] Negative (06/08/16 12:50 AM) Parainfluenza 3 PCR [Negative] Negative (06/08/16 12:50 AM) CMV PCR Qnt Not Detected (06/07/16 12:03 AM) CMV PCR Qnt (log) <2.4 log *NA* (06/07/16 12:03 AM) Source BK Virus PCR Qnt Blood Blood (06/08/16 4:22 AM) (06/07/16 12:03 AM) BK Virus PCR Qnt 2099 copies/mL 1 1553 copies/mL 2 *NA* *NA* (06/08/16 4:22 AM) (06/07/16 12:03 AM) BK Virus PCR Qnt (log) 3.3 log 3.2 log *NA* *NA* (06/08/16 4:22 AM) (06/07/16 12:03 AM) Source Respiratory Panel PCR [employer] Swab (06/08/16 12:50 AM) Influenza A PCR [Negative] Negative (06/08/16 12:50 AM) Influenza B PCR [Negative] Negative (06/08/16 12:50 AM) RSV PCR [Negative] Negative (06/08/16 12:50 AM) Adenovirus PCR [Negative] Negative (06/08/16 12:50 AM) 1Result Comment: "Significant Findings called to Maryann Lanza_at 06/09/2016 13: 46 by bf. Read Back OK."2Result Comment: "Significant Findings called to Maryann Lanza_at 06/09/2016 13:46 by bf. Read Back OK."BACTERIAL - SEROLOGY Most recent to oldest [Reference Range]: 1 2 3 Source Strep Urine (06/07/16 4:25 PM) Strep pneumoniae Ag [Negative] Negative (06/07/16 4:25 PM) VIRAL - SEROLOGY Most recent to oldest [Reference Range]: 1 2 3 Influ A [Negative] Negative (06/06/16 3:40 PM) Influ B [Negative] Negative (06/06/16 3:40 PM) Immunizations Not Given Vaccine Date Status [...] Assessment and Plan Extracted from: Title: Renal transplant consult note Author: Sp Harrington MD Date: Assessment/Plan 51-year-old woman with a history of hypertension, insulin-dependent dependent diabetes type 2, end-stage renal disease, status post kidney transplant, history of BK viremia, on chronic immunosuppression for transplanted kidney, admitted for possible infection. Transplant nephrology consult given transplanted kidney. Continues to have persistent BK viremia. DIOMEDES improving with hydration. Tacrolimu s at goal. Transplant surgery reviewed imaging and believes fluid collection to be seroma following mesh placement. They will drain fluid collection at bedside today. DSA sent and pending. Current problem list: Status post renal transplant 2012 IDDM type II HTN History of BK viremia Chronic immunosuppression Sepsis Thrombocytopenia Hypophosphatemia Non-anion gap metabolic acidosis DIOMEDES Recommendations 1. Continue tacrolimus 1 mg every morning and 0.5 mg every evening and prednisone 5 mg daily. 2. BK viremia- not on MMF, continue current IS with tacro as above and prednisone 5 mg daily. 3. Appreciate ID recs for treatment of her UTI- Keflex for 14 days. 4.Surgery to drain seroma at bedside today, recommend empiric antibiotic coverage with keflex for 2 weeks. 5.Sent DSA yesterday, will follow result. 6. Ok to discharge today on nifedipine 60 mg daily and carvedilol 25 mg q12 hrs. Discussed with attending Dr. Toussaint. Sp Harrington MD Combined Adult/Pediatric Nephrology Fellow [id number] Addendum by Shanae Toussaint MD on 06/10/2016 15:08 MOTION PICTURE COMMENTATOR I have evaluated the data and medications and have seen and examined the patient with the house staff and or Physician Motor Mechanic/Nurse Practitioner and agree with the house staff's and or Physician Rosa Mi martit's/Nurse Practitioner's assessment and plan as above. 1) cr back to bl, pt with worsening bk viremia, dsa and c1q pending, will not adjust IS until this is back 2) ct a/p with fluid collection in R abd wall on top of mesh from hernia repair, txp surgery to aspirate fluid today, pt to complete 2 weeks of po antbx 3) uti: pt with no evidence of sepsis, will d/c home on keflex x 2 weeks will f/u in txp clinic in 2 weeks Extracted from: Title: Team B Discharge Summary Author: Hillary Barragan Date: 06/10/16 Admission/Discharge Dates: Admit: 06/06/16 Disch: 06/10/16 Admission/Discharge Diagnoses: Sepsis 2/2 Proteus mirabilis UTI, IDDM, HTN, s/ p Living Donor Renal Transplant (2012) complicated by BK Nephropathy and Acute Antibody Mediated Rejection (2012) on Tacrolimus and Prednisone Service: Medicine Referring Physician/Dept: ED Consults: Transplant Renal, Transplant ID, Transplant Surgery Procedures: I&D of RLQ hematoma by Transplant Surgery History: IDDM, HTN, s/p Living Donor Renal Transplant (2012) complicated by BK Nephropathy and Acute Antibody Mediated Rejection (2012) on Tacrolimus and Prednisone Physical Exam: General: AAAOx3. No acute distress. Skin: Warm, dry. HEENT: Normocephalic, atraumatic. PERRLA, EMOIx2. Erythematous oropharyngeal mucosae. Trachea midline. Neck: Supple. No lympadenopathy. Cardiovascular: Regular rate and rhythm, No murmur, gallops, rubs. No chest wall tenderness. Respiratory: CTAB without wheezing, rhonchi, rales. Musculoskeletal: Normal ROM. No edema nor cyanosis. Gastrointestinal: +BS, Soft, Nontender/Nondistended, RLQ surgical scar with mild tenderness to palpation. No CVA, no suprapubic tenderness. Neurological: Alert and oriented to person, place, time, and situation, No focal neurological deficit observed. Course: Mrs. Cortez is a 51 year old female with Hx of IDDM, HTN, s/p Living Donor Renal Transplant (2012) complicated by BK Nephropathy and Acute Antibody Mediated Rejection (2012) on Tacrolimus and Prednison e, who presented with URI symptoms to hospital on06/06/2016. She states 1wk ago began to feel throat soreness, SOB and dry cough. On 06/04 while having dinner at hotel in [place], [place]. she began to ex perience lower abdominal pain complicated with nausea and 1x emesis in addition to URI symtoms. She reported noticed a occipital headache associated with low grade fevers, chills and night sweats for th e prior 2 days. Per patient on 06/06 at night she took Tylenol 1x dose which did not alleviate the symptoms. Since 06/06 she also began to feel burning urination, denies lower back or suprapubic pain no r has seen blood in urine. She states last time had a UTI was 1yr ago and it was adequately treated with antibiotics. She denies diarrhea, hemoptysis, hematemesis, hematochezia, hematuria, blurry vision , skin changes, receiving annual flu shot vaccine, sick contacts, recent travels outside the country, pets at home. At ED 06/06, she had a low grade fever of 99.6, WBC 13.2, and Cr of 1.86 ( baseline Cr 1,5 - 1.7). She was given 500mL NS bolus for hydration. During medical evaluation she appeared ill with dry mucous membranes secondary to hypovolemia due to poor PO intake since 06/04. Rapid Influenza A/B test was negative. She was given additional 500cc Bolus and started in continuous 0.9% NS @100cc for hydration. Renal Transplant Team recommended Nifedipine 90mg PO D and consult to Transplant ID. She was admitted to IMU for higher level of care. Influenza A/B rapid test, CMV, Legionella and Strep urine antigens were negative. Tamiflu discontinues after completing 48hrs of therapy. BK viremia still present and antibodies pending on discharge. UCx positive for Proteus mirabilis. She was deescalated to Keflex 50 0mg q12hrs POD as recommended by Transplant ID after completing 3days of IV Zosyn. CTAbd consistent with possible hematoma over MESH hernia repair site. Transplant surgery evaluated patient and drained site without complications She was discharge home on PO antibiotics on 06/10 on stable condition. Renal Transplant will coordinate follow up appointment with patient in 2 weeks. Discharge Condition: Stable Disposition: Home Medications: Medication List Active Medications Prescribed carvedilol: 25 mg, 1 tab, PO, Q12H, for 30 day, 60 tab, 3 Refill(s). cephalexin: 500 mg, 1 cap, PO, [id number], for 14 day, 28 cap, 0 Refill(s). cholecalciferol: 2,000 IntlUnit, 1 cap, PO, Daily, 100 cap, 3 Refill(s). DME Rx-diabetic supplies: test BG up to 4 times daily, MISC, QID, 300 strip, 1 Refill(s). gabapentin: 100 mg, 1 cap, PO, TID, 90 cap, 1 Refill(s). hydrALAZINE: 25 mg, PO, BID, for 30 day, 60 tab, 0 Refill(s). insulin aspart: See Instructions, 11 units before breakfast and 9 units before lunch and dinner, 10 mL, 6 Refill(s). insulin detemir: See Instructions, 34 units qAM and 32 units qPM, 10 mL, 3 Refill(s). NIFEdipine: 90 mg, 1 tab, PO, Daily, 90 tab, 0 Refill(s). non-formulary: See Instructions, Use to check blood sugar up to 4x/day as directed, 400 ea, 4 Refill(s). pantoprazole: 40 mg, 1 tab, PO, Daily, for 30 day, 30 tab, 3 Refill(s). predniSONE: 5 mg, 1 tab, PO, Daily, for 30 day, 30 tab, 11 Refill(s) . simvastatin: See Instructions, TAKE 1 TABLET BY MOUTH EVERY NIGHT AT BEDTIME, 30 tab, 11 Refill(s). tacrolimus: See Instructions, 2 cap PO AM 1 cap PO PM, 90 cap, 5 Refill(s). Documented tramadol: 50 mg, 1 tab, PO, Q6H, PRN: Pain. Instructions: ER return precautions. Please keep incision site clean and dry at all times. Wash every day with soap and water. Complete Keflex 500mg PO q12hrs for 14days. Follow-up: Post-hospitalization evaluation with [facility] in 2 weeks. Medicine Staff I examoined the patient together with Dr. Baron. on 06-10-16 I have reviewed her discharge note and agree with her findings,assesment and plan. Logan Ross MD, FACP Extracted from: Title: Transplant ID consultation Author: Octaviano Biswas MD Date: Transplant Infectious Disease Initial Consult Date of Admission: 06/06/16 Date of Consult: 06/08/16 Referring Physician: Dr. Ross Infectious Disease Attending: Dr. Renee Reason for Consult: fever Assessment and Plan: This is 51 y/o female with Hx of ESRD s/p living-donor renal transplant in 2012, Hx of acute antibody-mediated rejection and BK nephropathy in 2012 (off leflunomide in 02/2016), currently on pre dnisone 5 mg/day and tacrolimus for chronic immunosuppression, DM type II, who presented to ED with fever, URI symptoms, N/V, abdominal pain for 4 days prior to admission. Her symptoms are quite consistent with viral URI and possible UTI (fever, RLQ pain at transplanted kidney?, positive urine culture). CXR was negative for evidence of pneumonia. Given acute onset and she 's responding to treatment, other atypical infections specific to only immunosuppressed patients (such as CMV, fungal/endemic mycoses) are less likely. Recommendations: 1. Since influenza A/B Ag was negative and no evidence of pneumonia, can discontinue Tamiflu and azithromycin at this point. 2. Continue Zosyn for now while pending sensitivity of Proteus. Will de- escalate based on the result. 3. Pending resp viral PCR to rule out other respiratory viruses. 4. Continue symptomatic treatment and hydration. Thank you for this interesting consultation. We will continue to follow with you. Case discussed with Dr. Renee. Octaviano Biswas MD Transplant Infectious Disease Fellow, PGY-6 Transplant ID phone: [phone] History of Present Illness: This is 51 y/o female with Hx of ESRD s/p living-donor renal transplant in 2012, Hx of acute antibody-mediated rejection and BK nephropathy in 2012 (off leflunomide in 02/2016), currently on pre dnisone 5 mg/day and tacrolimus for chronic immunosuppression, DM type II, who presented to ED with fever, URI symptoms, N/V, abdominal pain for 4 days prior to admission. She has been in her usual state of health. On 06/04/16, while she was in [place], [place], she started to feel nauseated, headache, sore throat, malaise, loss appetite, RLQ abdominal pain, then she devel oped fever so that she decided to come to ED for further evaluation. She denies dysuria or hematuria, but noted decreased urine output since she could not eat/drink much for the past 4 days. No diarrhea . Denies sick contact or animal exposure. She's not received any antibiotics prior to admission. In ED, she was found to have fever with Tmax 101.6 and leukocytosis. CXR was negative for abnormal infiltrations. She was started on Zosyn, azithromycin and Tamiflu per primary team. Influenza A and B A g were negative. Today, she reports that she feels a bit better but still has intermittent nausea, but no abdominal pain or any other new symptoms. Her WBC count was normalized. Transplant ID was consulted for further management. Current antibiotics: Zosyn 06/07- Azithromycin 06/07- Tamiflu 06/07- Discontinued antibiotics in this encounter: none Microbiology: 06/06 BCx: NGTD 06/06 UCx: Proteus, pending sensitivity serum CMV PCR: neg Influenza A/B Ag: neg urine S. pneumo Ag, Legionella Ag: neg Past Medical History: - ESRD s/p living-donor renal transplant in 2012 - Hx of acute antibody-mediated rejection - Hx of BK nephropathy and viremia in 2012 (off leflunomide in 02/2016) - DM type II - HTN - Incisional hernia s/p repair with mesh in 02/2016 Past Surgical History: - living-donor renal transplant in 2012 - incisional hernia repair with mesh placement in 02/2016 - - Lt arm AV fistula in 2011 Family History: - significant for diabetes Social History: - Tobacco: denies - EtOH: denies - Illicit drugs: denies - Originally from [place] and moved to [place] since 30 years ago. Allergies: NKDA Review of Systems: Constitutional: Denies wt gain/loss, +loss of appetite, +fatigue Skin: Denies rashes, bruises HEENT: +headache, +sore throat (now resolved), +dry cough Pulm: Denies wheezing, SOB CVS: Denies chest pain, orthopnea, PND GI: +RLQ abd pain (now resolved), +mild nausea, Denies diarrhea, constipation : Denies incontinence, dysuria, hematuria MS: Denies myalgias, arthralgias, back pain Neuro: Denies ataxia, numbness/tingling sensation, syncope Physical Exam: Vitals and Temp: Vitals Tmp(F) Pulse BP RR SpO2 FIO2 06/08 14:00 ---- 72 107/57 21 96 --- 06/08 13:00 ---- 62 108/60 17 93 --- 06/08 12:00 ---- 73 112/60 27 95 --- 06/08 11:00 ---- 80 109/56 27 95 --- 06/08 10:00 ---- 68 116/58 22 94 --- 24 Hr Tmax: 100.6F (38.11c) at 06/07 17:00 Vital Signs are the last 5 in the past 48 hours. General appearance: alert, oriented x3, no acute distress, looked weak Skin: no rash or erythema HEENT: no pharyngeal erythema, no cervical lymphadenopathy, no oral thrush CVS: normal S1S2, no murmur, peripheral pulses 2+ all RS: clear, equal BS, no wheezing or crackles Abdomen: no distension, soft, nontender, no rigidity, active BS NS: no focal neurodeficit Ext: no edema Labs: 06/08 0740 Tacrolimus Lvl 4.3 L 06/08 0736 Glucose POC 267 H 06/08 0422 Magnesium Lvl 2.0 Phosphorus 2.9 Glucose Lvl 287 H BUN 27 H Creatinine Lvl 2.37 H Sodium Lvl 139 Potassium Lvl 3.7 Chloride Lvl 109 CO2 16 L AGAP 17.7 Calcium Lvl 8.8 eGFR 23 WBC 9.3 RBC 4.13 L Hgb 11.5 L Hct 34.0 L MCV 82.5 MCH 27.9 MCHC 33.9 RDW 13.8 Platelet 95 L MPV 10.7 H Segs 83.2 H Monocytes 10.2 Lymphocytes 6.4 L Eosinophils 0.1 Basophils 0.1 Segs-Bands # 7.8 Lymphocytes # 0.6 L Monocytes # 0.9 H Imaging/Studies: CXR (06/06/16) FINDINGS: The lungs are clear. There is no pleural effusion. The cardiomediastinal silhouette is within normal limits. No acute osseous abnormalities are identified. A previous gastric drainage tube has been removed since March 06, 2016. IMPRESSION: No acute cardiopulmonary disease nor significant interval change in the overall appearance of the chest radiograph is identified since 29/11/2015. ID Attending Holiday Coverage: I personally reviewed, evaluated and discussed this patient with Dr. Biswas. I agree with her/his findings and plan as written above. Ryder Renee MD ID staff Extracted from: Title: Team B History and Author: Hillary Barragan Date: Physical MD Patient: PEDRO CORTEZ Age: 51 years Sex: Female : 1965 Associated Diagnoses: None Author: Hillary Barragan MD Basic Information Source of history: Self. Present at bedside: Family member. Referral source: Emergency department. History limitation: None. Chief Complaint 06/06/2016 15:29 body aches / subjective fever / flu like symptoms sicne Sunday hx: kidney transplant 2 years ago History of Present Illness Mrs. Cortez is a 51 year old female with Hx of IDDM, HTN, s/p Living Donor Renal Transplant (2012) complicated by BK Nephropathy and Acute Antibody Mediated Rejection (2012) on Tacrolimus and Prednison e, who presented with URI symptoms to hospital on06/06/2016. She states 1wk ago began to feel throat soreness, SOB and dry cough. On 06/04 while having dinner at hotel in [place], [place]. she began to ex perience lower abdominal pain complicated with nausea and 1x emesis in addition to URI symtoms. She reported noticed a occipital headache associated with low grade fevers, chills and night sweats for th e prior 2 days. Per patient on 06/06 at night she took Tylenol 1x dose which did not alleviate the symptoms. Since 06/06 she also began to feel burning urination, denies lower back or suprapubic pain no r has seen blood in urine. She states last time had a UTI was 1yr ago and it was adequately treated with antibiotics. She denies diarrhea, hemoptysis, hematemesis, hematochezia, hematuria, blurry vision , skin changes, receiving annual flu shot vaccine, sick contacts, recent travels outside the country, pets at home. At ED 06/06, she had a low grade fever of 99.6, WBC 13.2, and Cr of 1.86 ( baseline Cr 1,5 - 1.7). She was given 500mL NS bolus for hydration. During medical evaluation she appeared ill with dry mucous membranes secondary to hypovolemia due to poor PO intake since 06/04. Rapid Influenza A/B test was negative. She was given additional 500cc Bolus and started in continuous 0.9% NS @100cc for hydration. Transplant Team has been consulted and reported would evaluate the patient in AM. She was admitted to IMU for higher level of care. Review of Systems Constitutional: Fever, Chills, Sweats, Weakness. Eye: Negative. Ear/Nose/Mouth/Throat: Sore throat. Respiratory: Shortness of breath, Cough. Cardiovascular: Negative. Gastrointestinal: Nausea, Vomiting. Genitourinary: Dysuria, No hematuria. Hematology/Lymphatics: Negative. Endocrine: Negative. Immunologic: Immunocompromised. Musculoskeletal: Muscle pain. Integumentary: Negative. Neurologic: Alert and oriented X4. Psychiatric: Negative. Health Status Allergies: Allergic Reactions (Selected) Severity Not Documented NKDA- No reactions were documented., Allergies (1) Active Reaction NKDA None Documented Current medications: (Selected) Inpatient Medications Ordered Nifediac CC: 90 mg, 1 tab, PO, Q12H Prograf: 0.5 mg, 1 cap, PO, QPM Vitamin D3 2000 intl units oral tablet: 2,000 IntlUnit, 1 tab, PO, Daily carvedilol: 25 mg, 1 tab, PO, Q12H docusate: 100 mg, 1 cap, PO, BID, PRN: Constipation heparin 5000 units/mL injectable solution: 5,000 unit, 1 mL, SUB-Q, Q8H ondansetron: 4 mg, 2 mL, IVP, Q6H, PRN: Nausea & Vomiting pantoprazole: 40 mg, 1 tab, PO, Daily predniSONE: 5 mg, 1 tab, PO, Daily simvastatin: 20 mg, 1 tab, PO, Bedtime sodium chloride 0.9% 1000 ml INJ 1,000 mL: 75 ml/hr, IV, Stop: 07/07/16 0:38: 00 MOTION PICTURE COMMENTATOR tacrolimus: 1 mg, 2 cap, PO, QAM Prescriptions Prescribed simvastatin 20 mg oral tablet: See Instructions, TAKE 1 TABLET BY MOUTH EVERY NIGHT AT BEDTIME, 30 tab, 11 Refill(s) tacrolimus 0.5 mg oral capsule: See Instructions, 2 cap PO AM 1 cap PO PM, 90 cap, 5 Refill(s) Suspended Colace 100 mg oral capsule: 100 mg, 1 cap, PO, BID, for 30 day, 60 cap, 1 Refill(s) Contour Next Blood Glucose Test Strips: test BG up to 4 times daily, MISC, QID , 300 strip, 1 Refill(s) Contour Next test strips: See Instructions, Use to check blood sugar up to 4x/ day as directed, 400 ea, 4 Refill(s) Levemir FlexPen 100 units/mL subcutaneous solution: See Instructions, 34 units qAM and 32 units qPM, 10 mL, 3 Refill(s) Lyrica 50 mg oral capsule: 50 mg, 1 cap, PO, BID, for 30 day, 60 cap, 2 Refill( s) Nifediac CC 90 mg oral tablet, extended release: 90 mg, 1 tab, PO, Q12H, for 30 day, 60 tab, 5 Refill(s) NovoLOG FlexPen 100 units/mL subcutaneous solution: See Instructions, 11 units before breakfast and 9 units before lunch and dinner, 10 mL, 6 Refill(s) Reglan 10 mg oral tablet: 10 mg, 1 tab, PO, Before Meals & Bedtime, for 30 day , 120 tab, 2 Refill(s) Vitamin D3 2000 intl units oral capsule: 2,000 IntlUnit, 1 cap, PO, Daily, 100 cap, 3 Refill(s) carvedilol 25 mg oral tablet: 25 mg, 1 tab, PO, Q12H, for 30 day, 60 tab, 3 Refill(s) pantoprazole 40 mg oral enteric coated tablet: 40 mg, 1 tab, PO, Daily, for 30 day, 30 tab, 3 Refill(s) predniSONE 5 mg oral tablet: 5 mg, 1 tab, PO, Daily, for 30 day, 30 tab, 11 Refill(s) Documented Medications Suspended hydrALAZINE: 25 mg, PO, BID, 0 Refill(s) tramadol 50 mg oral tablet: 50 mg, 1 tab, PO, Q6H, PRN: Pain, Medications (12) Active Scheduled: (9) carvedilol 25 mg TAB 25 mg 1 tab, PO, Q12H cholecalciferol 2000 IU Tab (Vitamin D3) 2,000 IntlUnit 1 tab, PO, Daily heparin 5000 unit/1 ml INJ VL 5,000 unit 1 mL, SUB-Q, Q8H NIFEdipine 90 mg ERT CC 90 mg 1 tab, PO, Q12H pantoprazole 40 mg ECT 40 mg 1 tab, PO, Daily predniSONE 5 mg TAB 5 mg 1 tab, PO, Daily simvastatin 20 mg TAB 20 mg 1 tab, PO, Bedtime tacrolimus 0.5 mg CAP 1 mg 2 cap, PO, QAM tacrolimus 0.5 mg CAP 0.5 mg 1 cap, PO, QPM Continuous: (1) sodium chloride 0.9% 1000 ml INJ 1,000 mL 1,000 mL, IV, 75 ml/hr PRN: (2) docusate sodium 100 mg CAP 100 mg 1 cap, PO, BID ondansetron 4 mg/2ml INJ VL 4 mg 2 mL, IVP, Q6H Problem list: All Problems Obesity / SNOMED CT [id number] / Confirmed, Active Problems (1) Obesity Histories Past Medical History: Resolved ESRD (end stage renal disease) (95997102): Resolved. History of renal transplant (1565114241): Resolved. Chronic kidney disease (CKD) (965852250): Resolved. BK virus (554204184): Resolved. CMV (cytomegalovirus) (07647461): Resolved. HTN - Hypertension (5039001151): Resolved. DM (diabetes mellitus) type II controlled with renal manifestation (856338290) : Resolved. Hyperlipidemia (15356456): Resolved. Polycythemia (136253): Resolved. Acute rejection of renal transplant - grade III (674233143): Resolved. Family History: Mother Gestational diabetes High blood pressure Brother High blood pressure Sister High blood pressure Renal disease Type 2 diabetes mellitus Procedure history: Kidney transplantation ([id number]) on 05/23/2013 at 48 Years. section ([id number]). Comments: 11/30/2014 12:57 - Kirstin Jackson RN x3 Creation of upper limb arteriovenous fistula ([id number]). 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 No Ready to change: No Concerns about substance abuse in household: No Tobacco Use: Never smoker . Physical Examination VS/Measurements Vital Signs (last 24 hrs) Last Charted Temp Oral H 99.5DegF (JUN 06 23:20) Heart Rate Apical 83 bpm (JUN 07:) Resp Rate H 23BRMIN (JUN 07:) SBP H 151mmHg (JUN 07:) DBP 73 mmHg (JUN 07:) SpO2 98 % (JUN 07 00:40) Weight 49.545 kg (JUN 07:) Height 162.56 cm (JUN 07:) BMI 18.75 (JUN 07:) General: AAAOx3, ill-appearing. No acute distress. Skin: Warm, dry, pale. HEENT: Normocephalic, atraumatic. PERRLA, EOMIx2, mild icteric sclera (streaks) , normal conjunctiva. Dry oral mucosae, orophrayngeal erythema no exudates bilateral tonsils normal, trachea midline. Neck: Supple, trachea midline. No adenopathy. Cardiovascular: Regular rate and rhythm, No murmur, gallops, rubs. No chest wall tenderness. Respiratory: Lungs are clear to auscultation @ apexes and bases anterior and posteriorly. Respirations are mildly labored not tachypneic. Nontender to percussion of posterior wall. Musculoskeletal: Normal ROM. myalgia, no muscular tenderness to palpation, adequate strenght. Gastrointestinal: +BS, Soft, Nontender/Nondistended, RLQ surgical scar. No CVA , no suprapubic tenderness. Neurological: Alert and oriented to person, place, time, and situation, No focal neurological deficit observed. Review / Management Results review: Labs (Last four charted values) WBC H 13.2 (JUN 06) Hgb 14.2 (JUN 06) Hct 42.2 (JUN 06) Plt L 122 (JUN 06) Na 137 (JUN 06) K 3.8 (JUN 06) CO2 L 21 (JUN 06) Cl 101 (JUN 06) Cr H 1.86 (JUN 06) BUN 21 (JUN 06) Glucose Random H 200 (JUN 06) Ca 9.4 (JUN 06) . Impression and Plan Mrs. Cortez is a 51 year old female with Hx of IDDM, HTN, ESRD s/p Living Donor Renal Transplant (2012) complicated by BK Nephropathy and Acute Antibody Mediated Rejection (2012) on Tacrolimus and Pred nisone, who presented acutely ill with URI and UTI symptoms. She is febrile, hemodynamically stable in no acute ditress presenting improving leukocytosis on CBC since admission. Due to immunosuppression concern she has been emperically treated with Zosyn, Azithromycin and Oseltamivir. We have placed a consult to Transplant Team for further recommendations. SIRS 2/2 URI vs UTI in setting of immunosuppression: - s/p Living Donor Renal Transplant (2012) chronically on Tacrolimus and Prednisone. - No Influenza seasonal shot as patient is immunocompromised. - Hx of Enterococcus and Proteus Mirabilis UTI - WBC 13.2 --> 11.2, downtrending likely 2/2 dilutional effect from IVFs - Influenza A/B negative. - F/U Legionella and Strep pneumonia Urine Antigen. - F/U Blood Cx x 2 - NGTD - F/U UCx - NGTD - F/U CMV, BK PCR results. - Started Oseltamivir 30 mg PO q24hrs (CrCl<30 renally dose) for 5 days. D#1/5 - Started Azithromycin 500mg PO 1x. Then 250mg PO D for 4 days. D#1/5 - Started Zosyn 2.25mg IVPB D #1 - Start Duonebs PRN for respiratory discomfort. - F/U Transplant Consult Team final recommendations on infectious workup. - Continuous 0.9 NS @100cc/hr for fluid resuscitation. Chronic Immunosuppressive state: - s/p living donor renal transplant on tacrolimus 0.5mg POD and Prednisone 5mg POD - Tacrolimus Levels subtherapeutic, argue against compliance vs. inadequate dosing - Continue home dose of tacrolimus and prednisone until final recommendations for dose adjustment by Transplant Consult Team. - F/U tacrolimus level 06/08 @08:30am (30mins before morning dose). DIOMEDES - Likely 2/2 to pooor PO intake for >72hrs - Cr baseline 1.5-1.7, Admission 1.86 06/06 - BMP in 06/07 Cr 1.81. - F/U BMP ordered for 06/08 - Continue 0.9% NS @100cc/hr maintenance fluids and encourage PO rehydration. IDDM: - On Levemir 34U in AM and 24U in PM at home - On Novolog 11U/11U/9U daily at home - Start ISS Medium Dose while inpatient. - F/U HgA1c ordered 06/07/2016 as add-on laboratory. - Cabohydrate controlled diet. - Nutrition Consult for Diabetes Education. HTN: - BP 151/73. Likely increased due to acutely ill-state and distress - Resumed home dose NIFEdipine 90 mg PO Q12H - Resumed home dose carvedilol 25 mg PO Q12H Code: FULL Diet: Carbohydrate Control Prophylaxis: Heparin 5k U sub-Q q8hrs Dispo: IMDavon Juarez MD [facility], PGY-1 Addendum by Dharmesh Melchor MD on 06/07/2016 21:50 Medicine Staff I examined the patient with Dr. Juarez this am. I have reviewed her note and and we discussed her recomendations. I agree with her findings, assesment and plan. Additionally I want to add, the patient is from [place]. Her transplant came from her , who is at her side. She had ESRD primarily from hypertension and developed diabetes later. She reports no sick contacts or previous OIs, except p ast BK cystitis.. She had a repair of a hernia in her RLQ from her transplant 1016. She had a complicated UTI with Proteus and Enterococcus. She did not have a flu vaccine. Initially her symptooms were of cough, but within days developed dysuria. On exam her right LNRTR is non- tender, but warm compared to the left lower quadrant. The surgical scar is healed, but has a scar from a non-draining fistulo us tract. She is coughing. Chest x-ray is normal. At this stage she should have routine bacterial infections - transplant UTI, influenza or atypical pneumonis, or hernia wound infection - no evidence on exam. Given situation have started ptip/tazo/azithro/ tamalu We have contacted transplant. My thought was we needed to cover organisms from previous UTI, flu and atypical pneumonia. Logan Ross MD, FACP
--- OUTSIDE RECORDS SUMMARY | 2018-08-01 03:18 | XMS REPORT | Summary of Care ---
:1965 Author Organization [facility] Address [address] [place] [address]- Encounter HQ Bob(FIN) [phone] Date(s): 06/26/16 - 07/25/16 [facility] [address] [place] [address] [address] [place] [address] Discharge Disposition: Home or Self Care Attending Physician: Shanae Toussaint MD Referring Physician: Shanae Toussaint MD Vital Signs Most recent to oldest [Reference Range]: 1 Height 165.1 cm (06/26/16 7:37 AM) Blood Pressure [90-140/60-90 mmHg] 129/78 mmHg (06/26/16 7:37 AM) Respiratory Rate [14-20 BRMIN] 18 BRMIN (06/26/16 7:37 AM) Peripheral Pulse Rate [60-100 bpm] 69 bpm (06/26/16 7:37 AM) Weight 86.409 kg (06/26/16 7:37 AM) Body Mass Index 31.7 m2 (06/26/16 7:37 AM) Problem List Condition Effective Dates Status [...] Substance Reaction Severity Status NKDA Active Medications carvedilol 25 mg oral tablet 25 mg=1 tab, PO, Q12H, # 180 tab, 3 Refill(s), Z94.0 Start Date: 06/28/16 Stop Date: 06/23/17 Status: Orderedgabapentin 100 mg oral capsule 100 mg=1 cap, PO, TID, # 270 cap, 3 Refill(s) Start Date: 06/28/16 Stop Date: 06/23/17 Status: OrderedhydrALAZINE 25 mg oral tablet 25 mg, PO, BID, X 90 day, # 180 tab, 3 Refill(s) Start Date: 06/28/16 Stop Date: 06/23/17 Status: OrderedLevemir FlexPen 100 units/mL subcutaneous solution See Instructions, 34 units qAM and 24 units qPM, # 20 mL, 11 Refill(s), Pharmacy : [id number], 34 days worth Start Date: 06/28/16 Status: OrderedNIFEdipine 90 mg oral tablet, extended release 90 mg=1 tab, PO, BID, # 68 tab, 11 Refill(s), Pharmacy: [facility] Start Date: 06/28/16 Stop Date: 08/10/17 Status: OrderedNovoLOG FlexPen 100 units/mL subcutaneous solution See Instructions, 11 units before breakfast and lunch and 9 units before dinner , # 15 mL, 11 Refill(s), Pharmacy: [facility], dispense 34 days worth Start Date: 06/28/16 Status: Orderedpantoprazole 40 mg oral enteric coated tablet 40 mg=1 tab, PO, Daily, # 90 tab, 3 Refill(s) Start Date: 06/28/16 Stop Date: 06/23/17 Status: OrderedpredniSONE 5 mg oral tablet 5 mg=1 tab, PO, Daily, X 90 day, # 90 tab, 3 Refill(s) Start Date: 06/28/16 Stop Date: 06/23/17 Status: Orderedsimvastatin 20 mg oral tablet 20 mg=1 tab, PO, Bedtime, # 90 tab, 3 Refill(s) Start Date: 06/28/16 Stop Date: 06/23/17 Status: Orderedsimvastatin 20 mg oral tablet 20 mg=1 tab, PO, Bedtime, X 90 day, # 90 tab, 3 Refill(s) Start Date: 06/28/16 Stop Date: 06/23/17 Status: Ordered Results REFERENCE LAB RESULTS Most recent to oldest [Reference Range]: 1 2 HLA Misc Test See Report 1 See Report 2 (06/26/16 2:01 PM) (06/26/16 2:01 PM) Test Name C1Q RESULTS DSA RESULTS *Unknown* *NA* (06/26/16 2:01 PM) (06/26/16 2:01 PM) 1Result Comment: Reference lab results scanned in Care4. Results displayed in [id number]-[id number] LAB-Outside Lab Documents (Imaged) under date/time results were scanned. Report sent for scanning on 06/29/2016 .2Result Comment: Reference lab results scanned in Care4. Results displayed in Results-Lab- REFERENCE LAB-Outside Lab Documents (Imaged) under date/time results were scanned. Report sent for scanning on 06/29/2016 . Immunizations Given and Recorded Vaccine Date Status Refusal Reason influenza virus vaccine, inactivated 06/26/16 Given pneumococcal 13-valent vaccine 06/26/16 Given Not Given Vaccine Date Status Refusal Reason [...]
--- OUTSIDE RECORDS SUMMARY | 2018-08-01 03:18 | XMS REPORT | Summary of Care ---
:1965 Author Organization [facility] Address [address] [place] [address]- Encounter HQ Bob(FIN) [phone] Date(s): 03/16/16 - 04/14/[address] [address]- [place] Discharge Disposition: Home or Self Care Attending Physician: Shanae Toussaint MD Referring Physician: Shanae Toussaint MD Vital Signs Most recent to oldest [Reference Range]: 1 Height 162.56 cm (03/30/16 2:19 PM) Blood Pressure [90-140/60-90 mmHg] 110/72 mmHg (03/30/16 2:19 PM) Peripheral Pulse Rate [60-100 bpm] 74 bpm (03/30/16 2:19 PM) Weight 87.091 kg (03/30/16 2:19 PM) Body Mass Index 32.96 m2 (03/30/16 2:19 PM) Problem List Condition Effective Dates Status Health Status Informant 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 Chronic kidney disease Resolved (CKD)(Confirmed) CMV (cytomegalovirus)(Confirmed) Resolved ESRD (end stage renal Resolved disease)(Confirmed) Polycythemia(Confirmed) Resolved History of renal Resolved transplant(Confirmed) HTN - Hypertension(Confirmed) Resolved Hyperlipidemia(Confirmed) Resolved Obesity(Confirmed) Active Pancreas(Confirmed) Resolved DM (diabetes mellitus) type II Resolved controlled with renal manifestation(Confirmed) Allergies, Adverse Reactions, Alerts Substance Reaction Severity Status NKDA Active Medications Contour Next Blood Glucose Test Strips test BG up to 4 times daily, MISC, QID, # 300 strip, Insulin dependent, Does not use insulin pump, Last DM eval date 03/30/16, 1 Refill(s), called to pharmacy Start Date: 03/30/16 Status: Ordered Results No data available for this section Immunizations Not Given Vaccine Date Status Refusal [...]
--- OUTSIDE RECORDS SUMMARY | 2018-08-01 03:18 | XMS REPORT | Summary of Care ---
:1965 Author Organization [facility] Address [address] [place], [place] [address]- Encounter HQ Bob(FIN) [phone] Date(s): 03/23/16 - 04/21/16 [facility] [address] [facility] [address] [place] [address] [phone] Discharge Disposition: Home or Self Care Attending Physician: Shanae Toussaint MD Referring Physician: Hema Donahue MD Vital Signs Most recent to oldest [Reference Range]: 1 Height 165.1 cm (03/23/16 8:38 AM) Blood Pressure [90-140/60-90 mmHg] 124/78 mmHg (03/23/16 8:38 AM) Respiratory Rate [14-20 BRMIN] 18 BRMIN (03/23/16 8:38 AM) Peripheral Pulse Rate [60-100 bpm] 69 bpm (03/23/16 8:38 AM) Weight 86.545 kg (03/23/16 8:38 AM) Body Mass Index 31.75 m2 (03/23/16 8:38 AM) Problem List Condition Effective Dates Status [...] Severity Status NKDA Active Medications Contour Next test strips Contour Next test strips, See Instructions, Use to check blood sugar up to 4x/ day as directed, # 400ea, Refill(s) 4, called to pharmacy Start Date: 04/04/16 Status: Orderedtramadol 50 mg oral tablet 50 mg=1 tab, PO, Q6H, PRN Pain Start Date: 03/23/16 Status: Ordered Results REFERENCE LAB RESULTS Most recent to oldest [Reference Range]: 1 2 HLA Misc Test See Report 1 See Report 2 (03/23/16 2:23 PM) (03/23/16 8:24 AM) Test Name C1q RESULTS DSA RESULTS *Unknown* *Unknown* (03/23/16 2:23 PM) (03/23/16 8:24 AM) 1Result Comment: Reference lab results scanned in Care4. Results displayed in [id number]-Sgy-[id number] LAB-Outside Lab Documents (Imaged) under date/time results were scanned. Report sent for scanning on 04/04/2016.2Result Comment: Reference lab results scanned in Care4. Results displayed in Results-Lab- REFERENCE LAB-Outside Lab Documents (Imaged) under date/time results were scanned. Report sent for scanning on 03/28/2016. Immunizations Not Given Vaccine Date Status Refusal [...]
--- OUTSIDE RECORDS SUMMARY | 2018-08-01 03:19 | XMS REPORT | Summary of Care ---
:1965 Author Organization [facility] Address [address] [place], [place] [address]- Encounter HQ July_rikki(FIN) [id number] Date(s): 08/27/17 - 09/25/[address] [address]- [place] Discharge Disposition: Home or Self Care [...] No data available for this section Immunizations Given and Recorded Vaccine Date Status Refusal Reason pneumococcal 23-valent vaccine 07/02/17 Given influenza virus vaccine, inactivated 07/02/17 Given influenza virus vaccine, inactivated 06/26/16 Given pneumococcal 13-valent vaccine 06/26/16 Given Not Given Vaccine Date Status Refusal Reason pneumococcal 23-valent vaccine 03/08/16 Not Given Patient Refuses influenza virus vaccine, inactivated 03/08/16 Not Given Patient Refuses Procedures Procedure Date Related Diagnosis Body Site Status Kidney transplantation 05/23/13 Completed section1 Completed Creation of upper limb arteriovenous Completed fistula Renal biopsy Completed 1x3 Social History Social History Type Response [...] No. Smoking Status Never smoker; Type: Cigarettes; Ready to change: No; Concerns about tobacco use in household: No; Exposure to Tobacco Smoke None; Cigarette Smoking Last 365 Days No; Reg Smoking Cessation Counseling No; Started at age: 1.0; Stopped at age: 1; entered on: 07/02/17 Assessment and Plan No data available for this section
--- OUTSIDE RECORDS SUMMARY | 2018-08-01 03:19 | XMS REPORT | Summary of Care ---
:1965 Author Organization [facility] Address [address] [place] [address]- Encounter HQ Bob(FIN) [id number] Date(s): 10/26/16 - 11/24/16 [facility] [address] [place] [address]- [place] Discharge Disposition: Home or Self Care [...]
--- OUTSIDE RECORDS SUMMARY | 2018-08-01 03:19 | XMS REPORT | Summary of Care ---
:1965 Author Organization [facility] Address [address] [place] [address]- Encounter HQ Bob(FIN) [id number] Date(s): 05/29/17 - 06/27/[address] [address]- [place] Encounter Diagnosis Hypertensive chronic kidney disease with stage 5 chronic kidney disease or end stage renal disease (Final) - 06/29/17 Type 2 diabetes mellitus with diabetic chronic kidney disease (Final) - End stage renal disease (Final) - Kidney transplant status (Final) - MCFP (current) use of insulin (Final) - Hyperlipidemia, unspecified (Final) - Secondary polycythemia (Final) - Discharge Disposition: Home or Self Care Attending Physician: Shanae Toussaint MD Referring Physician: Shanae Toussaint MD Vital Signs Most recent to oldest [Reference Range]: 1 Blood Pressure [90-140/60-90 mmHg] 112/74 mmHg (05/29/17 1:19 PM) Peripheral Pulse Rate [60-100 bpm] 71 bpm (05/29/17 1:19 PM) Weight 82.727 kg (05/29/17 1:19 PM) Problem List Condition Effective Dates Status [...]
--- OUTSIDE RECORDS SUMMARY | 2018-08-01 03:19 | XMS REPORT | Summary of Care ---
:1965 Author Organization [facility] Address [address] [place], [place] [address]- Encounter HQ July_rikki(FIN) [id number] Date(s): 01/25/17 - 02/23/17 [facility] [address] [place] [address]- [place] Discharge Disposition: Home or Self Care [...] Hgb A1C [<=5.6 %] 6.5 % *HI* (01/25/17 3:00 PM) Immunizations Given and Recorded Vaccine Date Status [...]
--- OUTSIDE RECORDS SUMMARY | 2018-08-01 03:19 | XMS REPORT | Summary of Care ---
:1965 Author Organization [facility] Address [address] [place] [address]- Encounter HQ Bob(FIN) [id number] Date(s): 12/05/16 - 01/03/[address] [address]- [place] Discharge Disposition: Home or Self Care Attending Physician: Shanae Toussaint MD Referring Physician: Shanae Toussaint MD Vital Signs Most recent to oldest [Reference Range]: 1 Height 162.56 cm (12/05/16 3:18 PM) Blood Pressure [90-140/60-90 mmHg] 136/76 mmHg (12/05/16 3:18 PM) Peripheral Pulse Rate [60-100 bpm] 65 bpm (12/05/16 3:18 PM) Weight 86.818 kg (12/05/16 3:18 PM) Body Mass Index 32.85 m2 (12/05/16 3:18 PM) Problem List Condition Effective Dates Status [...]
--- OUTSIDE RECORDS SUMMARY | 2018-08-01 03:19 | XMS REPORT | Summary of Care ---
:1965 Author Organization [facility] Address [address] [place] [address]- Encounter HQ Bob(FIN) [id number] Date(s): 04/23/17 - 05/22/[address] [place] [address] [phone] Discharge Disposition: Home or Self Care Attending Physician: Lily Vargas MD Referring Physician: Lily Vargas MD Vital Signs No data available for [...] Test See Report 1 See Report 2 (04/23/17 6:28 PM) (04/23/17 5:09 PM) Test Name DSA RESULTS C1Q RESULTS *Unknown* *Unknown* (04/23/17 6:28 PM) (04/23/17 5:09 PM) 1Result Comment: Reference lab results scanned in Care4. Results displayed in [id number] LAB-Outside Lab Documents (Imaged) under date/time results were scanned. Report sent for scanning on 05/01/2017.2Result Comment: Reference lab results scanned in Care4. Results displayed in Results-Lab- REFERENCE LAB-Outside Lab Documents (Imaged) under date/time results were scanned. Report sent for scanning on 05/10/2017. Immunizations Given and Recorded Vaccine Date Status Refusal Reason pneumococcal 13-valent vaccine 06/26/16 Given influenza virus vaccine, inactivated 06/26/16 Given Not Given Vaccine Date Status [...] at age: 0.0; Stopped at age: 1; Assessment and Plan No data available for this section
--- OUTSIDE RECORDS SUMMARY | 2018-08-01 03:19 | XMS REPORT | Summary of Care ---
:1965 Author Organization [facility] Address [address] [place] [address]- Encounter HQ Bob(FIN) [phone] Date(s): 09/21/16 - 10/20/[address] [address]- [place] Discharge Disposition: Home or Self Care Attending Physician: Shanae Toussaint MD Referring Physician: Shanae Toussaint MD Vital Signs Most recent to oldest [Reference Range]: 1 Height 162.56 cm (09/21/16 1:51 PM) Blood Pressure [90-140/60-90 mmHg] 96/52 mmHg (09/21/16 1:51 PM) Peripheral Pulse Rate [60-100 bpm] 60 bpm (09/21/16 1:51 PM) Weight 88.909 kg (09/21/16 1:51 PM) Body Mass Index 33.64 m2 (09/21/16 1:51 PM) Problem List Condition Effective Dates Status [...] Substance Reaction Severity Status NKDA Active Medications DME Prescription See Instructions, MISC, ONCE, Mini pen needles, # 360 ea, 1 Refill(s), called to pharmacy Start Date: 09/21/16 Status: OrderedDME Prescription See Instructions, MISC, ONCE, Countour Next test strips, # 360 ea, 1 Refill(s), called to pharmacy Start Date: 09/21/16 Status: OrderedDME Prescription See Instructions, MISC, ONCE, Lancets, # 360 ea, 1 Refill(s), called to pharmacy Start Date: 09/21/16 Status: Ordered Results No data available for [...]
--- OUTSIDE RECORDS SUMMARY | 2018-08-01 03:19 | XMS REPORT | Summary of Care ---
:1965 Author Organization [facility] Address [address] [place], [place] [address]- Encounter HQ Bob(FIN) [phone] Date(s): 05/29/17 - 06/27/[address] [address]- [place] Discharge Disposition: Home or Self Care [...] 0.0; Stopped at age: 1; entered on: 06/26/16 Assessment and Plan No data available for this section
--- OUTSIDE RECORDS SUMMARY | 2018-08-01 03:19 | XMS REPORT | Summary of Care ---
:1965 Author Organization [facility] Address [address] [place] [address]- Encounter HQ July_rikki(FIN) [id number] Date(s): 07/27/16 - 08/25/16 [facility] [address] [place] [address]- [place] Discharge Disposition: Home or Self Care Attending Physician: Shanae Toussaint MD Referring Physician: Shanae Toussaint MD Vital Signs Most recent to oldest [Reference Range]: 1 2 Height 162.56 cm 162.56 cm (08/24/16 1:11 PM) (07/27/16 1:11 PM) Blood Pressure [90-140/60-90 mmHg] 126/64 mmHg 111/75 mmHg (08/24/16 1:11 PM) (07/27/16 1:11 PM) Peripheral Pulse Rate [60-100 bpm] 62 bpm 51 bpm (08/24/16 1:11 PM) *LOW* (07/27/16 1:11 PM) Weight 88.455 kg 86.932 kg (08/24/16 1:11 PM) (07/27/16 1:11 PM) Body Mass Index 33.47 m2 32.9 m2 (08/24/16 1:11 PM) (07/27/16 1:11 PM) Problem List Condition Effective Dates Status [...] [Reference Range]: 1 Hgb A1C [<=5.6 %] 6.3 % *HI* (07/27/16 2:00 PM) Immunizations Given and Recorded Vaccine Date [...]
--- OUTSIDE RECORDS SUMMARY | 2018-08-01 03:20 | XMS REPORT | Summary of Care ---
:1965 Author Organization [facility] Address [address] [place], [place] [address]- Encounter HQ Bob(FIN) [id number] Date(s): 07/12/17 - 08/10/[address] [address]- [place] Encounter Diagnosis Type 2 diabetes mellitus with hyperglycemia (Final) - 08/16/17 Kidney transplant status (Final) - Discharge Disposition: Home or Self Care Attending Physician: Shanae Toussaint MD Referring Physician: Shanae Toussaint MD Vital Signs Most recent to oldest [Reference Range]: 1 2 Blood Pressure [90-140/60-90 mmHg] 114/62 mmHg 131/80 mmHg (07/30/17 3:13 PM) (07/12/17 2:50 PM) Peripheral Pulse Rate [60-100 bpm] 51 bpm 64 bpm *LOW* (07/12/17 2:50 PM) (07/30/17 3:13 PM) Weight 84 kg 83.909 kg (07/30/17 3:13 PM) (07/12/17 2:50 PM) Problem List Condition Effective Dates Status [...] Substance Reaction Severity Status NKDA Active Medications BD Ultra-Fine Dania Insulin Pen [place] 32G 4mm=5/32 inch 1 ea, MISC, 5X Day, # 150 ea, 11 Refill(s), called to pharmacy Start Date: 07/31/17 Stop Date: 07/28/29 Status: Ordered Results SPECIAL CHEMISTRY Most recent to oldest [Reference Range]: 1 Hgb A1C [<=5.6 %] 6.2 % *HI* (07/12/17 3:00 PM) Immunizations Given and Recorded Vaccine [...]
--- OUTSIDE RECORDS SUMMARY | 2018-08-01 03:20 | XMS REPORT | Summary of Care ---
:1965 Author Organization 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
--- OUTSIDE RECORDS SUMMARY | 2018-08-01 03:20 | XMS REPORT | Summary of Care ---
:1965 Author Organization [facility] Address [address] [place], [place] [address]- Encounter HQ July_rikki(FIN) [id number] Date(s): 11/26/17 - 12/25/[address] [address]- [place] Encounter Diagnosis Type 2 diabetes mellitus without complications (Final) - 12/31/17 Discharge Disposition: Home or Self Care Attending [...]
--- OUTSIDE RECORDS SUMMARY | 2018-08-01 03:20 | XMS REPORT | Summary of Care ---
:1965 Author Organization [facility] Address [address] [place], [place] [id number]- Encounter HQ Bob(FIN) [id number] Date(s): 07/02/17 - 07/31/[address] [place] [id number] [phone] Encounter Diagnosis Kidney transplant status (Final) - 08/03/17 Essential (primary) hypertension (Final) - Proteinuria, unspecified (Final) - Hyperlipidemia, unspecified (Final) - Discharge Disposition: Home or Self Care Attending Physician: Shanae Toussaint MD Referring Physician: Shanae Toussaint MD Vital Signs Most recent to oldest [Reference Range]: 1 Height 162.56 cm (07/02/17 7:33 AM) Blood Pressure [90-140/60-90 mmHg] 108/70 mmHg (07/02/17 7:33 AM) Respiratory Rate [14-20 BRMIN] 18 BRMIN (07/02/17 7:33 AM) Peripheral Pulse Rate [60-100 bpm] 56 bpm *LOW* (07/02/17 7:33 AM) Weight 82.926 kg (07/02/17 7:33 AM) Body Mass Index 31.38 m2 (07/02/17 7:33 AM) Problem List Condition Effective Dates Status [...] Substance Reaction Severity Status NKDA Active Medications biotin 61771 mcg, PO, Daily, 0 Refill(s) Start Date: 07/02/17 Status: Orderedcarvedilol 12.5 mg oral tablet 12.5 mg=1 tab, PO, BID, # 60 tab, 3 Refill(s), Pharmacy: [id number] Start Date: 07/02/17 Status: Orderedfurosemide 40 mg oral tablet 40 mg=1 tab, PO, Daily, 0 Refill(s) Start Date: 07/02/17 Status: Orderedlosartan 50 mg oral tablet 50 mg=1 tab, PO, Bedtime, # 30 tab, 3 Refill(s), Pharmacy: [facility] [id number] Start Date: 07/02/17 Status: OrderedPneumovax 23 0.5 mL, Route: IM, ONCE, STAT, Start date: 07/02/17 9:49:00 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
--- NOTE | 2018-08-01 06:30 | ER ---
Nurse's Notes [facility] Name: Amy Cortez Age: 53 yrs Sex: Female : 1965 Arrival Date: 08/01/2018 Time: 01:54 Bed 8 Private MD: Diagnosis: Headache;Hypertension;Dehydration Presentation: 08/01 02:00 Presenting complaint: Patient states: Patient reports headache with nausea that started ea Sunday, pt reports headache comes and goes. Transition of care: patient was not received from another setting of care. Onset of symptoms was August 01, 2018. Risk Assessment: Do you want to hurt yourself or someone else? Patient reports no desire to harm self or others. Initial Sepsis Screen: Does the patient meet any 2 criteria? No. Patient's initial sepsis screen is negative. Does the patient have a suspected source of infection? No. Patient's initial sepsis screen is negative. Care prior to arrival: Medication(s) given: Tylenol. 02:00 Method Of Arrival: Ambulatory ea 02:00 Acuity: LOUANN 3 ea Triage Assessment: 02:00 General: Appears uncomfortable, Behavior is calm, cooperative, appropriate for age. ea Pain: Complains of pain in forehead Pain currently is 9 out of 10 on a pain scale. Quality of pain is described as aching. Neuro: Level of Consciousness is awake, alert, obeys commands, Oriented to person, place, time, situation. Cardiovascular: Patient's skin is warm and dry. Respiratory: Airway is patent Respiratory effort is even, unlabored, Respiratory pattern is regular, symmetrical. Derm: Skin is pink, warm \T\ dry. 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 LMP N/A - Post-menopause jd3 Historical: - Allergies: 02:52 No Known Allergies; ea - Home Meds: 02:52 Vitamin D Oral [Active]; tacrolimus 0.5 mg Oral cap every 12 hours [Active]; sodium ea bicarbonate 650 mg Oral tab 1300 mg three times a day [Active]; simvastatin 20 mg Oral tab 1 tab once daily [Active]; prednisone 5 mg Oral tab once daily [Active]; Novolog 100 unit/mL Sub-Q soln 11 units before meals [Active]; nifedipine 90 mg Oral TbER 1 tab once daily [Active]; Levemir 100 unit/mL subcutaneous soln 24 units nightly [Active]; Levemir 100 unit/mL subcutaneous soln 34 units daily [Active]; leflunomide 20 mg Oral tab 1 tab once daily [Active]; hydrochlorothiazide 50 mg Oral tab 1 tab once daily [Active]; hydralazine 25 mg Oral tab 1 tab 2 times per day [Active]; gabapentin 300 mg Oral cap 1 cap 3 times per day [Active]; famotidine 20 mg Oral tab 1 tab once daily [Active]; docusate calcium 240 mg Oral cap 1 cap 2 times per day [Active]; carvedilol 25 mg Oral tab 1 tab every 12 hours [Active]; [place] [address] mcg daily [Active]; - PMHx: 02:52 Diabetes - NIDDM; Hypertension; ea - PSHx: 02:52 KIDNEY TRANSPLANT; Hernia repair; ea - Immunization history:: Adult Immunizations up to date. - Social history:: Smoking status: Patient/guardian denies using tobacco. - Family history:: not pertinent. - Ebola Screening: : No symptoms or risks identified at this time. - Hospitalizations: : No recent hospitalization is reported. Screenin:43 Abuse screen: Denies threats or abuse. Nutritional screening: No deficits noted. jd3 Tuberculosis screening: No symptoms or risk factors identified. Fall Risk Ambulatory Aid- None/Bed Rest/Nurse Assist (0 pts). Gait- Normal/Bed Rest/Wheelchair (0 pts) Mental Status- Oriented to own ability (0 pts). Total Reynoso Fall Scale indicates No Risk (0-24 pts). Assessment: 02:41 General: Appears in no apparent distress. uncomfortable, Behavior is calm, cooperative, jd3 appropriate for age. Pain: Complains of pain in head Quality of pain is described as sharp, Also complains of nausea. Neuro: Level of Consciousness is awake, alert, obeys commands, Oriented to person, place, time, situation, Appropriate for age. Cardiovascular: Capillary refill < 3 seconds Patient's skin is warm and dry. Respiratory: Airway is patent Respiratory effort is even, unlabored, Respiratory pattern is regular, symmetrical. GI: Abdomen is round non-distended, Bowel sounds present X 4 quads. Abd is soft and non tender X 4 quads. Reports nausea. : No signs and/or symptoms were reported regarding the genitourinary system. EENT: No signs and/or symptoms were reported regarding the EENT system. Derm: Skin is intact, Skin is dry, Skin is normal, Skin temperature is warm. Musculoskeletal: Circulation, motion, and sensation intact. Range of motion: intact in all extremities. 02:47 Reassessment: Patient appears in no apparent distress at this time. Patient and/or jd3 family updated on plan of care and expected duration. Pain level reassessed. Patient is alert, oriented x 3, equal unlabored respirations, skin warm/dry/pink. 03:04 Reassessment: Patient appears in no apparent distress at this time. Patient and/or jd3 family updated on plan of care and expected duration. Pain level reassessed. Patient is alert, oriented x 3, equal unlabored respirations, skin warm/dry/pink. 04:01 Reassessment: Patient appears in no apparent distress at this time. Patient and/or jd3 family updated on plan of care and expected duration. Pain level reassessed. Patient is alert, oriented x 3, equal unlabored respirations, skin warm/dry/pink. 05:00 Reassessment: Patient appears in no apparent distress at this time. Patient and/or jd3 family updated on plan of care and expected duration. Pain level reassessed. Patient is alert, oriented x 3, equal unlabored respirations, skin warm/dry/pink. 05:55 Reassessment: Patient appears in no apparent distress at this time. Patient and/or jd3 family updated on plan of care and expected duration. Pain level reassessed. Patient is alert, oriented x 3, equal unlabored respirations, skin warm/dry/pink. 06:28 Reassessment: Patient appears in no apparent distress at this time. Patient and/or jd3 family updated on plan of care and expected duration. Pain level reassessed. Patient is alert, oriented x 3, equal unlabored respirations, skin warm/dry/pink. Patient states feeling better. Vital Signs: 02:00 BP 200 / 76; Pulse 54; Resp 18; Pulse Ox 95% on R/A; Weight 81.65 kg; Height 5 ft. 4 ea in. (162.56 cm); Pain 9/10; 02:47 BP 193 / 92; Pulse 68; Resp 18 S; Pulse Ox 94% on R/A; jd3 03:05 BP 136 / 64; Pulse 50; Resp 17 S; Pulse Ox 94% on R/A; jd3 04:01 BP 121 / 59; Pulse 57; Resp 17 S; Pulse Ox 94% on R/A; jd3 05:00 BP 170 / 73; Pulse 46; Resp 17 S; Pulse Ox 94% on R/A; jd3 05:55 BP 159 / 80; Pulse 55; Resp 17 S; Pulse Ox 95% on R/A; jd3 02:00 Body Mass Index 30.90 (81.65 kg, 162.56 cm) ea Master Coma Score: 05:35 Eye Response: spontaneous(4). Verbal Response: oriented(5). Motor Response: obeys rn commands(6). Total: 15. ED Course: 01:54 Patient arrived in ED. ag3 01:58 Henri Snow MD is Attending Physician. rn 02:00 Jaime Rivero RN is Primary Nurse. jd3 02:43 Patient has correct armband on for positive identification. Bed in low position. Call jd3 light in reach. Side rails up X 1. Adult w/ patient. 02:44 Arm band placed on. jd3 02:45 Triage completed. ea 02:52 X-ray completed. Portable x-ray completed in exam room. Patient tolerated procedure kw well. 02:53 Chest Single View In Process Unspecified. EDMS 04:[address] via stretcher. eh 04:54 Patient moved back from CT. eh 05:20 Head Brain Wo Cont In Process Unspecified. EDMS 06:22 No provider procedures requiring assistance completed. jd3 06:28 IV discontinued, intact, bleeding controlled, No redness/swelling at site. Pressure jd3 dressing applied. Administered Medications: 02:40 Drug: NS 0.9% 500 ml Route: IV; Rate: bolus; Site: right antecubital; jd3 04:05 Follow up: Response: No adverse reaction; IV Status: Completed infusion jd3 02:40 Drug: Reglan 10 mg Route: IVP; Site: right antecubital; jd3 04:04 Follow up: Response: No adverse reaction jd3 02:40 Drug: Zofran 4 mg Route: IVP; Site: right antecubital; jd3 04:04 Follow up: Response: No adverse reaction jd3 02:41 Drug: Demerol - Meperidine 12.5 mg Route: IVP; Site: right antecubital; jd3 04:04 Follow up: Response: No adverse reaction jd3 Outcome: 06:20 Discharge ordered by . rn 06:27 Discharged to home ambulatory. jd3 06:27 Condition: stable 06:27 Discharge instructions given to patient, family, Instructed on discharge instructions, follow up and referral plans. Demonstrated understanding of instructions, follow-up care. 06:32 Patient left the ED. jd3 Signatures: Dispatcher [employer] Romeo Rock Roman, MD MD rn Whitley, Kimberlee kw Antunez, Elena RN Jaime Carrasquillo ea, RN RN Wendi Rios
--- NOTE | 2018-08-01 06:30 | EDPHYS ---
Physician Documentation [facility] Name: Amy Cortez Age: 53 yrs Sex: Female : 1965 Arrival Date: 08/01/2018 Time: 01:54 Bed 8 Private MD: ED Physician Henri Snow HPI: 08/01 02:11 This 53 yrs old Female presents to ER via Unassigned with complaints of rn Abdominal Pain, Headache. 02:11 The patient complains of pain to the forehead. The patient describes the headache as rn aching. Onset: The symptoms/episode began/occurred 2 day(s) ago. Severity of symptoms: At its worst the pain was mild, in the emergency department the pain is unchanged. The symptoms are alleviated by nothing. the symptoms are aggravated by nothing. The patient has not experienced similar symptoms in the past. The patient has not recently seen a physician. Reports 2 days intermittent headache, bilateral, doesn't usually get headaches, reports headache went away with tylenol, but woke her up again from sleep, also after headache began with chest pain, pressure, non-radiating. NO focal neurological complaints.. 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 LMP N/A - Post-menopause jd3 Historical: - Allergies: 02:52 No Known Allergies; ea - Home Meds: 02:52 Vitamin D Oral [Active]; tacrolimus 0.5 mg Oral cap every 12 hours [Active]; sodium ea bicarbonate 650 mg Oral tab 1300 mg three times a day [Active]; simvastatin 20 mg Oral tab 1 tab once daily [Active]; prednisone 5 mg Oral tab once daily [Active]; Novolog 100 unit/mL Sub-Q soln 11 units before meals [Active]; nifedipine 90 mg Oral TbER 1 tab once daily [Active]; Levemir 100 unit/mL subcutaneous soln 24 units nightly [Active]; Levemir 100 unit/mL subcutaneous soln 34 units daily [Active]; leflunomide 20 mg Oral tab 1 tab once daily [Active]; hydrochlorothiazide 50 mg Oral tab 1 tab once daily [Active]; hydralazine 25 mg Oral tab 1 tab 2 times per day [Active]; gabapentin 300 mg Oral cap 1 cap 3 times per day [Active]; famotidine 20 mg Oral tab 1 tab once daily [Active]; docusate calcium 240 mg Oral cap 1 cap 2 times per day [Active]; carvedilol 25 mg Oral tab 1 tab every 12 hours [Active]; biotin Oral 29160 mcg daily [Active]; - PMHx: 02:52 Diabetes - NIDDM; Hypertension; ea - PSHx: 02:52 KIDNEY TRANSPLANT; Hernia repair; ea - Immunization history:: Adult Immunizations up to date. - Social history:: Smoking status: Patient/guardian denies using tobacco. - Family history:: not pertinent. - Ebola Screening: : No symptoms or risks identified at this time. - Hospitalizations: : No recent hospitalization is reported. ROS: 02:11 Constitutional: Negative for fever, chills, and weight loss, Eyes: Negative for injury, rn pain, redness, and discharge, Neck: Negative for injury, pain, and swelling, Cardiovascular: Negative for palpitations, and edema, Respiratory: Negative for shortness of breath, cough, wheezing, and pleuritic chest pain, Abdomen/GI: Negative for abdominal pain, vomiting, diarrhea, and constipation, MS/Extremity: Negative for injury and deformity, Skin: Negative for injury, rash, and discoloration, Neuro: Negative for numbness, tingling, and seizure. Exam: 02:11 Constitutional: This is a well developed, well nourished patient who is awake, alert rn Head/Face: Normocephalic, atraumatic. Eyes: Pupils equal round and reactive to light, extra-ocular motions intact. Lids and lashes normal. Conjunctiva and sclera are non-icteric and not injected. Cornea within normal limits. Periorbital areas with no swelling, redness, or edema. ENT: MMM Neck: Trachea midline, no thyromegaly or masses palpated, and no cervical lymphadenopathy. Supple, full range of motion without nuchal rigidity, or vertebral point tenderness. No Meningismus. Cardiovascular: Bradycardic, regular, No pulse deficits. Respiratory: Lungs have equal breath sounds bilaterally, clear to auscultation. No increased work of breathing, no retractions or nasal flaring. Abdomen/GI: soft, non-tender Skin: Warm, dry MS/ Extremity: Pulses equal, no cyanosis. Neurovascular intact. Full, normal range of motion. Equal circumference. Neuro: Awake and alert, GCS 15, oriented to person, place, time, and situation. Cranial nerves II-XII grossly intact. Motor strength 5/5 in all extremities. Sensory grossly intact. Cerebellar exam normal. Normal gait. Vital Signs: 02:00 BP 200 / 76; Pulse 54; Resp 18; Pulse Ox 95% on R/A; Weight 81.65 kg; Height 5 ft. 4 ea in. (162.56 cm); Pain 9/10; 02:47 BP 193 / 92; Pulse 68; Resp 18 S; Pulse Ox 94% on R/A; jd3 03:05 BP 136 / 64; Pulse 50; Resp 17 S; Pulse Ox 94% on R/A; jd3 04:01 BP 121 / 59; Pulse 57; Resp 17 S; Pulse Ox 94% on R/A; jd3 05:00 BP 170 / 73; Pulse 46; Resp 17 S; Pulse Ox 94% on R/A; jd3 05:55 BP 159 / 80; Pulse 55; Resp 17 S; Pulse Ox 95% on R/A; jd3 02:00 Body Mass Index 30.90 (81.65 kg, 162.56 cm) ea Master Coma Score: 05:35 Eye Response: spontaneous(4). Verbal Response: oriented(5). Motor Response: obeys rn commands(6). Total: 15. MDM: 01:58 Patient medically screened. rn 05:35 Differential diagnosis: hypertensive headache, tension headache, vasomotor headache. rn Data reviewed: vital signs, nurses notes, lab test result(s), EKG, radiologic studies, CT scan, and as a result, I will discharge patient. Counseling: I had a detailed discussion with the patient and/or guardian regarding: the historical points, exam findings, and any diagnostic results supporting the discharge/admit diagnosis, lab results, radiology results, the need for outpatient follow up, to return to the emergency department if symptoms worsen or persist or if there are any questions or concerns that arise at home. Response to treatment: the patient's symptoms have markedly improved after treatment, and as a result, I will discharge patient. Special discussion: I discussed with the patient/guardian in detail that at this point there is no indication for admission to the hospital. It is understood, however, that if the symptoms persist or worsen the patient needs to return immediately for re-evaluation. 08/01 02:36 Order name: Basic Metabolic Panel; Complete Time: 03:35 EDMS 08/01 02:06 Order name: XRAY Chest (1 view) rn 08/01 02:36 Order name: Troponin (Emerg Dept Use Only); Complete Time: 03:35 EDMS 08/01 02:36 Order name: CBC with Automated Diff; Complete Time: 02:48 EDMS 08/01 02:36 Order name: Influenza Screen (A ; Complete Time: 03:35 EDMS 08/01 02:36 Order name: Group A Streptococcus Rapid Sc; Complete Time: 03:35 EDMS 08/01 02:51 Order name: Chest Single View EDMS 08/01 03:19 Order name: Throat Culture EDMS 08/01 02:06 Order name: IV Start; Complete Time: 02:40 rn 08/01 02:06 Order name: EKG; Complete Time: 07:05 rn 08/01 02:06 Order name: EKG - Nurse/Tech; Complete Time: 02:41 rn 08/01 04:46 Order name: Head Brain Wo Cont EDMS Administered Medications: 02:40 Drug: NS 0.9% 500 ml Route: IV; Rate: bolus; Site: right antecubital; jd3 04:05 Follow up: Response: No adverse reaction; IV Status: Completed infusion jd3 02:40 Drug: Reglan 10 mg Route: IVP; Site: right antecubital; jd3 04:04 Follow up: Response: No adverse reaction jd3 02:40 Drug: Zofran 4 mg Route: IVP; Site: right antecubital; jd3 04:04 Follow up: Response: No adverse reaction jd3 02:41 Drug: Demerol - Meperidine 12.5 mg Route: IVP; Site: right antecubital; jd3 04:04 Follow up: Response: No adverse reaction jd3 Disposition: 08/01/18 06:20 Discharged to Home. Impression: Headache, Hypertension, Dehydration. - Condition is Stable. - Discharge Instructions: General Headache Without Cause, Migraine Headache, Hypertension. - Medication Reconciliation Form, Thank You Letter, Antibiotic Education, Prescription Opioid Use form. - Follow up: Private Physician; When: As needed; Reason: Recheck today's complaints, Re-evaluation by your physician. - Problem is new. - Symptoms have improved. Signatures: Dispatcher [employer] EDMA Henri Snow MD MD rn Antunez, Elena RN Jaime Carrasquillo ea, RN RN jd3 Corrections: (The following items were deleted from the chart) 06:32 06:20 08/01/2018 06:20 Discharged to Home. Impression: Headache; Hypertension; jd3 Dehydration. Condition is Stable. Forms are Medication Reconciliation Form, Thank You Letter, Antibiotic Education, Prescription Opioid Use. Follow up: Private Physician; When: As needed; Reason: Recheck today's complaints, Re-evaluation by your physician. Problem is new. Symptoms have improved. rn
[2018-08-01 06:49] VITALS: BP 159/80; O2SAT 95
--- NOTE | 2018-08-01 08:18 | RAD REPORT ---
EXAM DESCRIPTION: RAD - Chest Single View - 08/01/2018 2:55 am CLINICAL HISTORY: CHEST PAIN Chest pain. COMPARISON: CHEST PA AND LAT 2 VIEW dated 05/09/2013; CHEST SINGLE VIEW dated 06/20/2012; CHEST SINGL E VIEW dated 01/10/2012; CHEST PA AND LAT 2 VIEW dated 01/10/2012 FINDINGS: Portable technique limits examination quality. The lungs are grossly clear. The heart is upper limit of normal in size. No displaced fractures. IMPRESSION: No acute intrathoracic process suspected.
--- NOTE | 2018-08-01 08:43 | EKG ---
Test Date: 2018-08-01 Test Time: 02:10:55 [place] Farmer: [place] MEASUREMENT RESULTS: Intervals: Rate: 53 SC: 120 QRSD: 82 QT: 452 QTc: 424 Springer: P: 38 SC: 120 QRS: 16 T: 85 INTERPRETIVE STATEMENTS: Sinus bradycardia Otherwise normal ECG Compared to ECG 06/20/2012 15:40:14 Sinus rhythm no longer present Short SC interval no longer present ST (T wave) deviation no longer present Electronically Signed On 08-01-18 08:43:15 SENIOR HOUSEKEEPER by Miguel Beckham
--- NOTE | 2018-08-01 14:18 | RAD REPORT ---
EXAM DESCRIPTION: Head Brain Wo Cont CLINICAL HISTORY: HEADACHE COMPARISON: None available. TECHNIQUE: Contiguous axial images of the brain were obtained without the administration of intravenous contrast . This exam was performed according to our departmental dose-optimization program, which includes aut omated exposure control, adjustment of the mA and/or kV according to patient size and/or less of iter ative reconstruction technique. FINDINGS: Brain: No hemorrhage. No territorial infarct. No mass effect. No herniation. Ventricles: Within normal limits for patient's age. Bones: No acute osseous abnormality. Paranasal sinuses: Unremarkable. Mastoid air cells: Unremarkable. Soft tissues: No acute abnormality. IMPRESSION: No acute intracranial abnormalities. Electronically signed by Josemanuel Mendoza MD 08/01/2018 6:07 AM HOSPITAL ACCOUNT MANAGER Due to temporary technical issues with the PACS/Fluency reporting system, reports are being signed by the in house radiologist as a courtesy to ensure prompt reporting. The interpreting radiologist is f ully responsible for the content of the report.
== END 2018-08-01 06:32 | disposition home or self-care (01) ==
LOC: ER 01:51
DX: E86.0 Dehydration (principal); I10 Essential (primary) hypertension; E11.9 Type 2 diabetes mellitus without complications; Z79.4 Long term (current) use of insulin; Z94.0 Kidney transplant status
CPT/HCPCS: 36415; 70450; 71045; 80048; 84484; 85025; 87070; 87081; 87804; 93005; 96361; 96374; 96375; 99284; J2175; J2405; J2765

== ENCOUNTER 2018-08-10 19:11 | Emergency (ER) | payer SELFPAY ==
[2018-08-10 20:34] LABS: Potassium 4.3 mmol/L (3.5-5.1)
--- NOTE | 2018-08-10 21:05 | ER ---
Nurse's Notes [facility] Name: Amy Cortez Age: 53 yrs Sex: Female : 1965 Arrival Date: 08/10/2018 Time: 19:14 Bed 16 Private MD: Diagnosis: Zoster [herpes zoster] Presentation: 08/10 19:30 Presenting complaint: Patient states: I went to the pharmacist and they said the rash tl1 on my side is possibly shingles. Transition of care: patient was not received from another setting of care. Onset of symptoms was August 10, 2018. Risk Assessment: Do you want to hurt yourself or someone else? Patient reports no desire to harm self or others. Initial Sepsis Screen: Does the patient meet any 2 criteria? No. Patient's initial sepsis screen is negative. Does the patient have a suspected source of infection? No. Patient's initial sepsis screen is negative. Care prior to arrival: None. 19:30 Method Of Arrival: Ambulatory tl1 19:30 Acuity: LOUANN 3 tl1 19:32 Presenting complaint:. 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 LMP N/A - Post-menopause tl1 Historical: - Allergies: 19:29 NKDA; tl1 - Home Meds: 19:29 biotin Oral 10332 mcg daily [Active]; carvedilol 25 mg Oral tab 1 tab every 12 hours tl1 [Active]; docusate calcium 240 mg Oral cap 1 cap 2 times per day [Active]; famotidine 20 mg Oral tab 1 tab once daily [Active]; gabapentin 300 mg Oral cap 1 cap 3 times per day [Active]; hydralazine 25 mg Oral tab 1 tab 2 times per day [Active]; hydrochlorothiazide 50 mg Oral tab 1 tab once daily [Active]; leflunomide 20 mg Oral tab 1 tab once daily [Active]; Levemir 100 unit/mL subcutaneous soln 34 units daily [Active]; Levemir 100 unit/mL subcutaneous soln 24 units nightly [Active]; nifedipine 90 mg Oral TbER 1 tab once daily [Active]; Novolog 100 unit/mL Sub-Q soln 11 units before meals [Active]; prednisone 5 mg Oral tab once daily [Active]; simvastatin 20 mg Oral tab 1 tab once daily [Active]; sodium bicarbonate 650 mg Oral tab 1300 mg three times a day [Active]; tacrolimus 0.5 mg Oral cap every 12 hours [Active]; Vitamin D Oral [Active]; - PMHx: 19:29 Diabetes - NIDDM; Hypertension; tl1 - PSHx: 19:29 kidney transplant; tl1 - Immunization history:: Adult Immunizations up to date. - Social history:: Smoking status: Patient/guardian denies using tobacco, never smoked, Patient/guardian denies using alcohol, street drugs. - Ebola Screening: : Patient negative for fever greater than or equal to 101.5 degrees Fahrenheit, and additional compatible Ebola Virus Disease symptoms Patient denies exposure to infectious person Patient denies travel to an Ebola-affected area in the 21 days before illness onset. Screenin:00 Abuse screen: Denies threats or abuse. Denies injuries from another. Nutritional aa1 screening: No deficits noted. Tuberculosis screening: No symptoms or risk factors identified. Fall Risk None identified. Assessment: 20:00 General: Appears in no apparent distress. comfortable, Behavior is calm, cooperative, aa1 appropriate for age. Pain: Complains of pain in right mid back. Neuro: Level of Consciousness is awake, alert, obeys commands, Oriented to person, place, time, situation, Moves all extremities. Full function. Respiratory: Airway is patent Respiratory effort is even, unlabored, Respiratory pattern is regular, symmetrical. GI: No signs and/or symptoms were reported involving the gastrointestinal system. : No signs and/or symptoms were reported regarding the genitourinary system. EENT: No signs and/or symptoms were reported regarding the EENT system. Derm: Skin is intact, is healthy with good turgor, Skin is pink, warm \T\ dry. Rash noted that is vesicular, on right mid back. Musculoskeletal: Circulation, motion, and sensation intact. Capillary refill < 3 seconds. 21:17 Reassessment: Patient appears in no apparent distress at this time. Patient is alert, aa1 oriented x 3, equal unlabored respirations, skin warm/dry/pink. Discussed d/c \T\ f/u instructions with pt \T\ family. Denies questions or concerns at this time. Amb with steady gait to lobby. Vital Signs: 19:32 BP 109 / 65; Pulse 59; Resp 20; Temp 99.4(O); Pulse Ox 95% ; Weight 81.65 kg; Height 5 tl1 ft. 4 in. (162.56 cm); Pain 8/10; 21:17 BP 113 / 62; Pulse 61; Resp 20; Temp 98.8; Pulse Ox 97% on R/A; Pain 6/10; aa1 19:32 Body Mass Index 30.90 (81.65 kg, 162.56 cm) tl1 ED Course: 19:14 Patient arrived in ED. ag3 19:32 Triage completed. tl1 19:33 Arm band placed on right wrist. tl1 19:37 Keaar Aly, RN is Primary Nurse. aa1 19:37 Juan Braun NP is PHCP. pm1 19:37 Nuno Berg MD is Attending Physician. pm1 20:00 Patient has correct armband on for positive identification. Bed in low position. Call aa1 light in reach. Pulse ox on. NIBP on. 20:03 BMP Sent. jb5 21:17 No provider procedures requiring assistance completed. Patient did not have IV access aa1 during this emergency room visit. Administered Medications: 21:18 Drug: Tylenol #3 (300 mg-30 mg) 1 tablet Route: PO; aa1 21:18 Follow up: Response: Medication administered at discharge. aa1 Outcome: 21:04 Discharge ordered by MD. pm1 21:17 Discharged to home ambulatory, with family. aa1 21:17 Condition: good 21:17 Discharge instructions given to patient, family, Instructed on discharge instructions, follow up and referral plans. medication usage, Demonstrated understanding of instructions, follow-up care, medications, Prescriptions given X 2. 21:19 Patient left the ED. aa1 Signatures: Keara Aly RN RN aa1 Rita Hirsch RN RN tl1 Juan Braun NP FORMS EXAMINER pm1 Peg Cintron jb5 Wendi Severino ag3 Corrections: (The following items were deleted from the chart) 19:32 19:30 Onset of symptoms was August 10, 2018 tl1 tl1
--- NOTE | 2018-08-10 21:05 | EDPHYS ---
Physician Documentation [facility] Name: Amy Cortez Age: 53 yrs Sex: Female : 1965 Arrival Date: 08/10/2018 Time: 19:14 Bed 16 Private MD: Nuno Jaramillo HPI: 08/10 20:00 This 53 yrs old Female presents to ER via Ambulatory with complaints of Rash. pm1 20:00 The patient's rash thought to be caused by an unknown cause. The rash is located on the pm1 right mid back. The rash can be described as vesicular. Onset: The symptoms/episode began/occurred yesterday. Associated signs and symptoms: Pertinent positives: burning sensation, Pain Pertinent negatives: fever, swelling of lips, swelling of throat, swelling of tongue, vomiting. Severity of symptoms: in the emergency department the symptoms are worse. Treatment given at home: None. The patient has not experienced similar symptoms in the past. The patient has been recently seen by a physician: with different complaint(s). 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 LMP N/A - Post-menopause tl1 Historical: - Allergies: 19:29 NKDA; tl1 - Home Meds: 19:29 biotin Oral 17715 mcg daily [Active]; carvedilol 25 mg Oral tab 1 tab every 12 hours tl1 [Active]; docusate calcium 240 mg Oral cap 1 cap 2 times per day [Active]; famotidine 20 mg Oral tab 1 tab once daily [Active]; gabapentin 300 mg Oral cap 1 cap 3 times per day [Active]; hydralazine 25 mg Oral tab 1 tab 2 times per day [Active]; hydrochlorothiazide 50 mg Oral tab 1 tab once daily [Active]; leflunomide 20 mg Oral tab 1 tab once daily [Active]; Levemir 100 unit/mL subcutaneous soln 34 units daily [Active]; Levemir 100 unit/mL subcutaneous soln 24 units nightly [Active]; nifedipine 90 mg Oral TbER 1 tab once daily [Active]; Novolog 100 unit/mL Sub-Q soln 11 units before meals [Active]; prednisone 5 mg Oral tab once daily [Active]; simvastatin 20 mg Oral tab 1 tab once daily [Active]; sodium bicarbonate 650 mg Oral tab 1300 mg three times a day [Active]; tacrolimus 0.5 mg Oral cap every 12 hours [Active]; Vitamin D Oral [Active]; - PMHx: 19:29 Diabetes - NIDDM; Hypertension; tl1 - PSHx: 19:29 kidney transplant; tl1 - Immunization history:: Adult Immunizations up to date. - Social history:: Smoking status: Patient/guardian denies using tobacco, never smoked, Patient/guardian denies using alcohol, street drugs. - Ebola Screening: : Patient negative for fever greater than or equal to 101.5 degrees Fahrenheit, and additional compatible Ebola Virus Disease symptoms Patient denies exposure to infectious person Patient denies travel to an Ebola-affected area in the 21 days before illness onset. ROS: 20:00 Constitutional: Negative for fever, chills, and weight loss, Eyes: Negative for injury, pm1 pain, redness, and discharge, ENT: Negative for injury, pain, and discharge, Neck: Negative for injury, pain, and swelling, Cardiovascular: Negative for chest pain, palpitations, and edema, Respiratory: Negative for shortness of breath, cough, wheezing, and pleuritic chest pain, Abdomen/GI: Negative for abdominal pain, nausea, vomiting, diarrhea, and constipation, Back: Negative for injury and pain, : Negative for injury, bleeding, discharge, and swelling, MS/Extremity: Negative for injury and deformity. 20:00 Skin: Positive for rash, of the right mid back. Exam: 20:00 Constitutional: This is a well developed, well nourished patient who is awake, alert, pm1 and in no acute distress. Head/Face: Normocephalic, atraumatic. Neck: Trachea midline, no thyromegaly or masses palpated, and no cervical lymphadenopathy. Supple, full range of motion without nuchal rigidity, or vertebral point tenderness. No Meningismus. Chest/axilla: Normal chest wall appearance and motion. Nontender with no deformity. No lesions are appreciated. Cardiovascular: Regular rate and rhythm with a normal S1 and S2. No gallops, murmurs, or rubs. Normal PMI, no JVD. No pulse deficits. Respiratory: Lungs have equal breath sounds bilaterally, clear to auscultation and percussion. No rales, rhonchi or wheezes noted. No increased work of breathing, no retractions or nasal flaring. Abdomen/GI: Soft, non-tender, with normal bowel sounds. No distension or tympany. No guarding or rebound. No evidence of tenderness throughout. Back: No spinal tenderness. No costovertebral tenderness. Full range of motion. 20:00 MS/ Extremity: Pulses equal, no cyanosis. Neurovascular intact. Full, normal range of motion. 20:00 Skin: Appearance: normal except for affected area, consistent with zoster, on the right mid back. 20:00 Neuro: Orientation: is normal, Motor: moves all fours, Gait: is steady, at a normal pace, without difficulty. Vital Signs: 19:32 BP 109 / 65; Pulse 59; Resp 20; Temp 99.4(O); Pulse Ox 95% ; Weight 81.65 kg; Height 5 tl1 ft. 4 in. (162.56 cm); Pain 8/10; 21:17 BP 113 / 62; Pulse 61; Resp 20; Temp 98.8; Pulse Ox 97% on R/A; Pain 6/10; aa1 19:32 Body Mass Index 30.90 (81.65 kg, 162.56 cm) tl1 MDM: 19:37 Patient medically screened. pm1 19:48 Data reviewed: vital signs. Data interpreted: Pulse oximetry: on room air is 95 %. pm1 Interpretation: normal. Counseling: I had a detailed discussion with the patient and/or guardian regarding: the historical points, exam findings, and any diagnostic results supporting the discharge/admit diagnosis. 21:03 ED course: Creatinine clearance 52.5 mL/min per Cockcroft-Gault. pm1 08/10 19:53 Order name: [facility]; Complete Time: 21:00 pm1 Administered Medications: 21:18 Drug: Tylenol #3 (300 mg-30 mg) 1 tablet Route: PO; aa1 21:18 Follow up: Response: Medication administered at discharge. aa1 Disposition: 08/10/18 21:04 Discharged to Home. Impression: Zoster [herpes zoster]. - Condition is Stable. - Discharge Instructions: Shingles. - Prescriptions for Valtrex 1 g Oral Tablet - take 1 tablet by ORAL route every 8 hours for 7 days; 21 tablet. Tylenol- Codeine #3 300-30 mg Oral Tablet - take 2 tablets by ORAL route every 6 hours As needed; 20 tablet. - Medication Reconciliation Form, Thank You Letter, Antibiotic Education, Prescription Opioid Use form. - Follow up: Emergency Department; When: As needed; Reason: Worsening of condition. Follow up: Private Physician; When: 2 - 3 days; Reason: Recheck today's complaints, Continuance of care, Re-evaluation by your physician. - Problem is new. - Symptoms have improved. Addendum: 08/14/2018 11:26 Co-signature as Attending Physician, Nuno Berg MD I agree with the assessment and c bronson plan of care. Signatures: Dispatcher [employer] EDMS Keara Aly, RN RN aa1 Nuno Berg MD MD cha Lasagna, Tonya, RN RN tl1 Juan Braun, CAP LINING MACHINE OPERATOR CAP LINING MACHINE OPERATOR pm1 Corrections: (The following items were deleted from the chart) 08/10 21:19 21:04 08/10/2018 21:04 Discharged to Home. Impression: Zoster [herpes zoster]. aa1 Condition is Stable. Forms are Medication Reconciliation Form, Thank You Letter, Antibiotic Education, Prescription Opioid Use. Follow up: Emergency Department; When: As needed; Reason: Worsening of condition. Follow up: Private Physician; When: 2 - 3 days; Reason: Recheck today's complaints, Continuance of care, Re-evaluation by your physician. Problem is new. Symptoms have improved. pm1
[2018-08-10] MEDS ORDERED: CODEINE 30MG/APAP 300MG TAB ONE (21:27)
[2018-08-10 21:57] VITALS: BP 109/65; TEMP 99.4; O2SAT 95
== END 2018-08-10 21:19 | disposition home or self-care (01) ==
LOC: ER 19:11
DX: B02.9 Zoster without complications (principal); I10 Essential (primary) hypertension; E11.9 Type 2 diabetes mellitus without complications; Z79.4 Long term (current) use of insulin; Z94.0 Kidney transplant status
CPT/HCPCS: 36415; 80048; 99284

== ENCOUNTER 2023-10-23 17:46 | Observation (INO) | payer OTHER ==
[2023-10-23 19:01] LABS: Absolute Eosinophils 0.1 K/uL (0-0.5); Absolute Monocytes 0.5 K/uL (0.1-1.3); Basophils % 0.3 % (0-1.3); Eosinophils % 2.5 % (0-4.4); Hematocrit 41.9 % (36.0-45.0); Hemoglobin 14.4 g/dL (12.0-15.0); Lymphocytes % 17.7 % (15.3-44.8); MCHC 34.4 g/dL (32.0-36.0); MCV 84.3 fL (80-100); MPV 9.3 fL (7.6-11.3); Monocytes % 8.6 % (3.3-12.3); Neutrophils % 70.9 % (41.7-73.7); Nucleated Red Blood Cells % 0.1 % (0-0); Platelets 184 thou/uL (152-406); RBC Red Blood Cell Count 4.97 M/uL (3.86-4.86); Red Cell Distribution Width 13.3 % (12.1-15.2)
--- NOTE | 2023-10-23 19:14 | RAD REPORT ---
EXAM DESCRIPTION: RAD - Chest Single View - 10/23/2023 6:48 pm CLINICAL HISTORY: CHEST PAIN # 20 Chest pain. COMPARISON: <Comparisons> FINDINGS: Portable technique limits examination quality. The lungs are grossly clear. The heart is normal in size. No displaced fractures. IMPRESSION: No acute intrathoracic process suspected.
[2023-10-23 19:21] LABS: Anion Gap 9.4 mEq/L (5.0-15.0); Potassium 3.4 mEq/L (3.5-5.1); Troponin High Sensitivity 11.4 pg/mL (<58.9)
[2023-10-23] MEDS ORDERED: MORPHINE 4 MG/ML SYR ONE (19:38)
[2023-10-23] MEDS ORDERED: ONDANSETRON 4 MG/2 ML VIAL ONE (19:38)
[2023-10-23] MEDS ORDERED: INSULIN REGULAR (HUMAN) 100 UNIT/ML ONE (20:38)
[2023-10-23] MEDS ORDERED: NA CHLORIDE 0.9% 1,000 ML ONE (20:39)
--- NOTE | 2023-10-23 20:45 | ER ---
Nurse's Notes [facility] Name: Amy Cortez Age: 58 yrs Sex: Female : 1965 Arrival Date: 10/23/2023 Time: 17:46 Bed 20 Private MD: Diagnosis: Chest pain, unspecified Presentation: 10/22 18:00 Chief complaint: Patient states: pain to bottom of feet that is worse than normal, also iw is having sharp chest pains , has been happening for a year and today it was bad. Coronavirus screen: At this time, the client does not indicate any symptoms associated with coronavirus-19. Ebola Screen: Patient negative for fever greater than or equal to 101.5 degrees Fahrenheit, and additional compatible Ebola Virus Disease symptoms Patient denies exposure to infectious person. Patient denies travel to an Ebola-affected area in the 21 days before illness onset. No symptoms or risks identified at this time. Initial Sepsis Screen: Does the patient meet any 2 criteria? No. Patient's initial sepsis screen is negative. Does the patient have a suspected source of infection? No. Patient's initial sepsis screen is negative. Risk Assessment: Do you want to hurt yourself or someone else? Patient reports no desire to harm self or others. Onset of symptoms was 2022. 18:00 Method Of Arrival: Ambulatory iw 18:00 Acuity: LOUANN 3 iw Triage Assessment: 18:00 General: Appears in no apparent distress. Behavior is cooperative, appropriate for age, bp anxious. Pain: Complains of pain in chest, right foot and left foot. Cardiovascular: Reports chest pain. Historical: - Allergies: 18:02 NKDA; iw - PMHx: 18:02 Diabetes - NIDDM; Hypertension; neuropathy; iw - Immunization history:: Adult Immunizations up to date. - Infectious Disease History:: Denies. - Social history:: Smoking status: Patient denies any tobacco usage or history of. Screenin:05 [facility] ED Fall Risk Assessment (Adult) History of falling in the last 3 months, bp including since admission No falls in past 3 months (0 pts). Abuse screen: Denies threats or abuse. Denies injuries from another. Nutritional screening: No deficits noted. Tuberculosis screening: No symptoms or risk factors identified. Assessment: 18:05 General: Appears in no apparent distress. Behavior is cooperative, appropriate for age, bp anxious. Pain: Pain does not radiate. Pain began 1 day ago. 19:55 Reassessment: Patient and/or family updated on plan of care and expected duration. Pain tm6 level reassessed. Patient is alert, oriented x 3, equal unlabored respirations, skin warm/dry/pink. Patient states symptoms have not improved. Vital Signs: 18:00 BP 164 / 88; Pulse 80; Resp 16; Temp 98.2; Pulse Ox 100% on R/A; iw 19:54 BP 170 / 94; Pulse 85; Resp 19; Pulse Ox 96% on R/A; Pain 10/10; tm6 19:54 Pain Scale: Adult tm6 ED Course: 17:52 Patient arrived in ED. mr 17:58 Elizabeth Menchaca FNP-C [facility]. kb 17:58 Nuno Berg MD is Attending Physician. kb 18:02 Triage completed. iw 18:05 Patient has correct armband on for positive identification. Client placed on continuous bp cardiac and pulse oximetry monitoring. NIBP monitoring applied. 18:12 Nathanael Garcia, RN is Primary Nurse. bp 18:18 Inserted saline lock: 22 gauge in right forearm, using aseptic technique. Blood bp collected. O2 via ROOM AIR. 18:19 Arm band placed on. bp 18:26 Initial lab(s) drawn, by me, sent to lab. EKG done, by manufacturing engineering technologist. reviewed by Elizabeth NAIDU. 18:30 EKG done, by ED staff. sm8 18:45 Chest Single View In Process Unspecified. EDMS 19:00 Client placed on continuous cardiac and pulse oximetry monitoring. NIBP monitoring tm6 applied. human resource intern on. Pulse ox on. NIBP on. Door closed. Noise minimized. Warm blanket given. Pillow given. 19:58 Primary Nurse role handed off by Nathanael Garcia, VINITA rv1 20:34 Cheryl Carver, VINITA is Primary Nurse. tm6 20:44 Viktor Dyer MD is Hospitalizing Provider. kb 22:54 No provider procedures requiring assistance completed. Patient admitted, IV remains in tm6 place. 22:55 Provided Education on: need for admit. tm6 Administered Medications: 19:44 Drug: Ondansetron IVP 4 mg IVP once; over 2 minutes Route: IVP; Site: right wrist; tm6 19:54 Drug: morphine IVP or IV 4 mg IVP once over 4 mins Route: IVP; Infused Over: 4 mins; tm6 Site: right wrist; 21:00 Drug: NS 0.9% IV 1000 ml IV at 1000 ml once Route: IV; Rate: 1000 ml; Site: right wrist;tm6 21:00 Drug: Insulin Regular Human IVP 5 units IVP once {Co-Signature: pf1 (Lexii Pacheco tm6 RN).} Route: IVP; Site: right wrist; Medication: 18:05 VIS not applicable for this client. bp Outcome: 20:44 Decision to Hospitalize by Provider. kb 22:55 Admitted to Med/surg accompanied by nurse, via wheelchair, with chart, tm6 22:55 Condition: stable 22:55 Instructed on the need for admit, 22:59 Patient left the ED. tm6 Signatures: Dispatcher [employer] EDMS Elizabeth Menchaca, HARDWOOD FINISHER-C HARDWOOD FINISHER-CkCassandra Clemente, Reg Reg mr Shahida Mcdaniels, RN Nathanael Welsh, RN RN Camryn Wright rv1 Milagro Dowell sm8 Cheryl Carver RN RN tm6 Lexii Pacheco RN pf1
--- NOTE | 2023-10-23 20:45 | EDPHYS ---
Physician Documentation [facility] Name: Amy Cortez Age: 58 yrs Sex: Female : 1965 Arrival Date: 10/23/2023 Time: 17:46 Bed 20 Private MD: ED Physician Nuno Berg HPI: 10/22 21:40 This 58 yrs old Female presents to ER via Ambulatory with complaints of Chest kb Pain, Foot Pain. 21:40 Pt is a 58 year old female who presents for chest pain and bilateral foot pain that has kb been going on for a year but has gotten worse. Denies shortness of breath, palpitations, cough, congesiton, fever. Historical: - Allergies: 18:02 NKDA; iw - PMHx: 18:02 Diabetes - NIDDM; Hypertension; neuropathy; iw - Immunization history:: Adult Immunizations up to date. - Infectious Disease History:: Denies. - Social history:: Smoking status: Patient denies any tobacco usage or history of. ROS: 21:39 Constitutional: As per HPI kb Exam: 21:39 Constitutional: This is a well developed, well nourished patient who is awake, alert, kb and in no acute distress. Head/Face: Normocephalic, atraumatic. ENT: Moist Mucous membranes Cardiovascular: Regular rate Respiratory: Respirations even and unlabored. No increased work of breathing. Talking in full sentences Abdomen/GI: Soft, non-tender. No distention Skin: Warm, dry with normal turgor. Normal color. MS/ Extremity: Pulses equal, no cyanosis. Neurovascular intact. Full, normal range of motion. Neuro: Awake and alert, GCS 15, oriented to person, place, time, and situation. Moves all extremities. Normal gait. 21:39 Chest/axilla: Inspection: normal, Palpation: tenderness, that is mild, 21:39 ECG was reviewed by the Attending Physician. Vital Signs: 18:00 BP 164 / 88; Pulse 80; Resp 16; Temp 98.2; Pulse Ox 100% on R/A; iw 19:54 BP 170 / 94; Pulse 85; Resp 19; Pulse Ox 96% on R/A; Pain 10/10; tm6 19:54 Pain Scale: Adult tm6 MDM: 17:58 Patient medically screened. kb 20:52 Differential diagnosis: abnormal electrolytes, NE, arrhythmia, neuropathy. Data kb reviewed: vital signs, nurses notes. Consideration of Admission/Observation Patient was admitted/placed on observation. Escalation of care including admission/observation considered. Management of patient was discussed with the following: Hospitalist: Dr Dyer accepts pt for admission. Historians other than the Patient: Daughter/Son: daughter. Counseling: I had a detailed discussion with the patient and/or guardian regarding the historical points, exam findings, and any diagnostic results supporting the discharge/admit diagnosis, lab results, radiology results, the need for further work-up and treatment in the hospital. ED course: HEART score 2. Discussed case with Dr Berg who compared today's EKG to previous. Recommends admission due to some changes. . 10/22 18:09 Order name: Basic Metabolic Panel 10/22 18:09 Order name: CBC with Diff 10/22 18:09 Order name: Troponin HS 10/22 18:59 Order name: Basic Metabolic Panel [facility] 10/22 18:59 Order name: Troponin High Sensitivity [facility] 10/22 18:59 Order name: CBC with Automated Diff [facility] 10/22 19:08 Order name: CBC with Automated Diff; Complete Time: 19:08 [facility] 10/22 19:21 Order name: Basic Metabolic Panel; Complete Time: 19:26 [facility] 10/22 19:21 Order name: Troponin High Sensitivity; Complete Time: 19:26 [facility] 10/22 21:32 Order name: Glucose, Ancillary Testing; Complete Time: 21:37 [facility] 10/22 21:33 Order name: Glucose, Ancillary Testing [facility] 10/22 22:02 Order name: Glucose, Ancillary Testing; Complete Time: 22:17 [facility] 10/22 22:03 Order name: Glucose, Ancillary Testing [facility] 10/22 18:09 Order name: XRAY Chest (1 view) 10/22 18:35 Order name: Chest Single View [facility] 10/22 19:15 Order name: RAD; Complete Time: 19:16 [facility] 10/22 18:09 Order name: EKG; Complete Time: 18:09 kb 10/22 18:09 Order name: Cardiac monitoring; Complete Time: 18:13 kb 10/22 18:09 Order name: EKG - Nurse/Tech; Complete Time: 18:25 kb 10/22 18:09 Order name: IV Saline Lock; Complete Time: 18:18 kb 10/22 18:09 Order name: Labs collected and sent; Complete Time: 18:18 kb 10/22 18:09 Order name: O2 Per Protocol; Complete Time: 18:13 kb 10/22 18:09 Order name: O2 Sat Monitoring; Complete Time: 18:12 kb EC:39 Rate is 59 beats/min. Rhythm is regular. QRS [place] is Normal. [place] interval is normal at kb 116 msec. QRS interval is normal at 88 msec. QT interval is normal at 433 msec. Administered Medications: 19:44 Drug: Ondansetron IVP 4 mg IVP once; over 2 minutes Route: IVP; Site: right wrist; tm6 19:54 Drug: morphine IVP or IV 4 mg IVP once over 4 mins Route: IVP; Infused Over: 4 mins; tm6 Site: right wrist; 21:00 Drug: NS 0.9% IV 1000 ml IV at 1000 ml once Route: IV; Rate: 1000 ml; Site: right wrist;tm6 21:00 Drug: Insulin Regular Human IVP 5 units IVP once {Co-Signature: pf1 (Lexii Pacheco tm6 RN).} Route: IVP; Site: right wrist; Disposition Summary: 10/23/23 20:44 Hospitalization Ordered Notes: Hospitalization Status: Observation kb Provider: Viktor Dyer Location: Telemetry/MedSurg (observation) kb Condition: Stable kb Problem: new kb Symptoms: are unchanged kb Bed/Room Type: Standard Room Assignment: 213(10/23/23 22:02) rv1 Diagnosis - Chest pain, unspecified kb Forms: - Medication Reconciliation Form kb - SBAR form kb - Leadership Thank You Letter kb Signatures: Dispatcher [employer] Elizabeth Pantoja, JUSTIN[employer] FLOOR NURSE-Shahida Sanders RN RN Nathanael Vences RN RN Camryn Wright rv1 Cheryl Carver RN RN tm6 Lexii Pacheco RN pf1 Corrections: (The following items were deleted from the chart) 22:02 20:44 kb rv1
[2023-10-23] MEDS ORDERED: ACETAMINOPHEN 325 MG TABLET PO PRN (21:39)
[2023-10-23] MEDS ORDERED: ONDANSETRON 4 MG/2 ML VIAL IV PRN (21:39)
[2023-10-23] MEDS: TACROLIMUS 0.5 MG PO SCH (21:45)
[2023-10-23] MEDS: carvediloL 25 MG TAB PO SCH (22:00)
[2023-10-23 23:38] VITALS: BMI 24.0
--- NOTE | 2023-10-24 00:07 | P.HP ---
Certification for Inpatient Patient admitted to: Observation With expected LOS: <2 Midnights Practitioner: I am a practitioner with admitting privileges, knowledge of patient current condition, hospital course, and medical plan of care. Services: Services provided to patient in accordance with Admission requirements found in Title 42 Section 412.3 of the Code of Federal Regulations Patient History Date of Service: 10/23/23 Reason for admission: Chest Pain History of Present Illness: 58 yo female with past medical history of hypertension, diabetes, renal failure, s/p renal transplant, CHF, hyperlipidemia came to ER with chest pain. Pain started 1 year ago and has been intermittent located in retrosternally radiating to the back worse with movements and exercise. Denies any diaphoresis. No nausea vomiting or diarrhea. Chest pain got worse over the last 2 days and has been progressively worsening and was brought to ER. Pain is located retrosternally 6 out of 10 in severity, sharp, denies any fever or chills. Denies any shortness of breath Patient was assessed in the ER and was admitted for further management of chest pain rule out ACS Allergies No Known Allergies Allergy (Verified 05/09/13 17:07) Home medications list reviewed: Yes Home Medications: Carvedilol 25 mg PO Q12H 03/05/16 Docusate Calcium 240 mg PO BID 03/05/16 Famotidine 20 mg PO DAILY 03/05/16 Hydralazine [Apresoline] 25 mg PO BID 03/05/16 Insulin Aspart [Novolog*] 10 units SQ AC 03/05/16 Insulin Detemir [Levemir Flextouch] 32 unit SQ DAILY 6PM 03/05/16 Insulin Detemir [Levemir Flextouch] 34 unit SQ [id number] 03/05/16 Leflunomide 20 mg PO DAILY 03/05/16 Nifedipine Xl [Procardia Xl*] 90 mg PO DAILY 03/05/16 Simvastatin 20 mg PO BEDTIME 03/05/16 Sodium Bicarbonate 1,300 mg PO TID 03/05/16 Tacrolimus 0.5 mg PO Q12H 03/05/16 predniSONE [Prednisone] 5 mg PO DAILY 03/05/16 - Past Medical/Surgical History Diabetic: No Past Medical History: Reviewed- Non-Contributory -: htn -: renal faiure -: Diabetes Past Surgical History: Reviewed- Non-Contributory -: -: Kidney transplant 2 years ago - Family History Family History: Reviewed- Non-Contributory - Social History Smoking Status: Never smoker Alcohol use: No CD- Drugs: No Caffeine use: Yes Review of Systems 10-point ROS is otherwise unremarkable Physical Examination - Vital Signs Temperature: 98.2 F Blood Pressure: 138/66 Pulse: 78 Respirations: 18 Pulse Ox (%): 94 - Physical Exam General: Alert, In no apparent distress, Oriented x3, Cooperative HEENT: Atraumatic, Normocephalic Neck: Supple, 2+ carotid pulse no bruit Respiratory: Clear to auscultation bilaterally, Normal air movement Cardiovascular: No edema, Normal pulses, Regular rate/rhythm, Normal S1 S2 Capillary refill: <2 Seconds Gastrointestinal: Soft and benign, Non-distended, W/out hepatosplenomegaly, No tenderness Musculoskeletal: No clubbing, No swelling Integumentary: No rashes, No breakdown Neurological: Normal speech, Normal strength at 5/5 x4 extr, Normal tone, Cranial nerves 3-12 intact, Normal reflexes 2+ Lymphatics: No axilla or inguinal lymphadenopathy - Studies Laboratory Data (last 24 hrs) 10/23/23 10/23/23 18:22 18:22 WBC 5.70 Hgb 14.4 Hct 41.9 Plt Count 184 Sodium 135 L Potassium 3.4 L BUN 21 H Creatinine 1.54 H Glucose 368 H Assessment and Plan - Problems (Diagnosis) (1) Chest pain Current Visit: Yes Status: Acute Plan: Unstable angina Will trend cardiac enzymes Will monitor telemetry Started on aspirin and statin Will get a CT chest to rule out PE Will get an echocardiogram Cardiology consult Diabetes with hyperglycemia Insulin sliding scale Accu-Chek before every meal and at bedtime Will get an A1c in a.m. Hypertension Antihypertensives titrated Continue home medications and titrate as needed Hyperlipidemia Continue statin History of renal failure History of renal transplant Continue home medications Hyponatremia Hypokalemia Electrolytes monitor and replace accordingly Monitor renal parameters Electrolytes monitor and replace accordingly GI/DVT prophylaxis Advanced directive full code Discharge Plan: Home Plan to discharge in: 48 Hours - Advance Directives Does patient have a Living Will: No Does patient have a Durable POA for Healthcare: No - Code Status/Comfort Care Code Status: Full Code Time Spent Managing Pts Care (In Minutes): 48
[2023-10-24] MEDS: HYDRALAZINE HCL 20 MG/ML VIAL ONE (00:41)
[2023-10-24 03:00] LABS: Absolute Eosinophils 0.2 K/uL (0-0.5); Absolute Lymphocytes (CBC) 1.4 K/uL (0.7-4.9); Absolute Monocytes 0.5 K/uL (0.1-1.3); Basophils % 0.5 % (0-1.3); Eosinophils % 2.9 % (0-4.4); Hematocrit 41.6 % (36.0-45.0); Hemoglobin 14.2 g/dL (12.0-15.0); Lymphocytes % 22.4 % (15.3-44.8); MCH 28.5 pg (27.0-35.0); MCHC 34.1 g/dL (32.0-36.0); MCV 83.7 fL (80-100); MPV 9.8 fL (7.6-11.3); Monocytes % 8.6 % (3.3-12.3); Neutrophils % 65.6 % (41.7-73.7); Nucleated Red Blood Cells % 0.1 % (0-0); Platelets 181 thou/uL (152-406); RBC Red Blood Cell Count 4.97 M/uL (3.86-4.86); Red Cell Distribution Width 13.7 % (12.1-15.2)
[2023-10-24 03:18] LABS: ALT/SGPT 17 U/L (13-56); Albumin 3.3 g/dL (3.4-5.0); Alkaline Phosphatase 74 U/L (45-117); Anion Gap 5.3 mEq/L (5.0-15.0); BUN Blood Urea Nitrogen 17 mg/dL (7-18); Bicarbonate 25 mEq/L (21-32); Bilirubin Total 0.6 mg/dL (0.2-1.0); Globulin 3.3 g/dL (2.3-3.5); Glomerular Filtration Rate 47 ml/min (=/>90); Glucose Level 133 mg/dL (74-106); Potassium 3.3 mEq/L (3.5-5.1); Protein, Total 6.6 g/dL (6.4-8.2); Sodium Level 140 mEq/L (136-145)
[2023-10-24 03:31] LABS: AST/SGOT < 10 U/L (15-37)
[2023-10-24] MEDS: MORPHINE 2 MG/ML SYR IV PRN (06:12)
[2023-10-24] MEDS: carvediloL 25 MG TAB PO SCH (06:12)
[2023-10-24] MEDS: INSULIN REGULAR (HUMAN) 100 UNIT/ML SQ SCH (07:30)
--- NOTE | 2023-10-24 08:00 | RAD REPORT ---
EXAM DESCRIPTION: CT - Chest For Pe Angio - 10/24/2023 7:53 am CLINICAL HISTORY: Chest pain. CP COMPARISON: No comparisons TECHNIQUE: CT angiogram of the pulmonary arteries was performed with MIP. All CT scans are performed using dose optimization technique as appropriate and may include automated exposure control or mA/KV adjustment according to patient size. FINDINGS: No evidence of pulmonary thromboembolism. No acute aortic finding demonstrated. Mild subsegmental atelectasis is present in both posterior lung bases. No focal consolidation. No significant pericardial or pleural fluid. No concerning bony finding. IMPRESSION: No evidence of pulmonary thromboembolism. Mild subsegmental atelectasis is present in both posterior lung bases.
--- NOTE | 2023-10-24 08:20 | P.PN ---
Subjective Date of Service: 10/24/23 Chief Complaint: Chest Pain Admitted for chest pain, chest pain controlled with as needed analgesia Echo ordered, cardiology consulted N.p.o. for stress test in a.m. Colchicine started for possible pericarditis by cardiology - Physical Exam General: Alert, In no apparent distress, Oriented x3, Cooperative HEENT: Atraumatic, Normocephalic Neck: Supple, 2+ carotid pulse no bruit Respiratory: Clear to auscultation bilaterally, Normal air movement Cardiovascular: No edema, Normal pulses, Regular rate/rhythm, Normal S1 S2 Capillary refill: <2 Seconds Gastrointestinal: Soft and benign, Non-distended, W/out hepatosplenomegaly, No tenderness Musculoskeletal: No clubbing, No swelling Integumentary: No rashes, No breakdown Neurological: Normal speech, Normal strength at 5/5 x4 extr, Normal tone, Cranial nerves 3-12 intact, Normal reflexes 2+ Lymphatics: No axilla or inguinal lymphadenopathy Review of Systems Per HPI Physical Examination - Vital Signs Temperature: 98.3 F Blood Pressure: 156/54 Pulse: 72 Respirations: 16 Pulse Ox (%): 97 - Studies Laboratory Data (last 24 hrs) 10/23/23 10/23/23 10/23/23 18:22 18:22 18:09 WBC 5.70 Cancelled Hgb 14.4 Cancelled Hct 41.9 Cancelled Plt Count 184 Cancelled Sodium 135 L Potassium 3.4 L BUN 21 H Creatinine 1.54 H Glucose 368 H 10/23/23 18:09 WBC Hgb Hct Plt Count Sodium Cancelled Potassium Cancelled BUN Cancelled Creatinine Cancelled Glucose Cancelled Assessment And Plan - Plan Unstable angina Will trend cardiac enzymes Will monitor telemetry Started on aspirin and statin Will get a CT chest to rule out PE Will get an echocardiogram Cardiology consult Serial troponins negative Cardiology Plan for nuclear stress test 10/24 Start colchicine chest pain likely pericarditis 10/22 Echocardiogram GRADE I DIASTOLIC DYSFUNCTION COMMENTS: 1. NORMAL LEFT VENTRICULAR SYSTOLIC FUNCTION, EJECTION FRACTION 60-65%, NORMAL WALL MOTION 2. GRADE I DIASTOLIC DYSFUNCTION 3. NORMAL FILLING PRESSURE 10/23 CT of the chest PE protocol IMPRESSION: No evidence of pulmonary thromboembolism. Mild subsegmental atelectasis is present in both posterior lung bases. Diabetes with hyperglycemia Insulin sliding scale Accu-Chek before every meal and at bedtime Will get an A1c in a.m. Hypertension Antihypertensives titrated Continue home medications and titrate as needed Hyperlipidemia Continue statin History of renal failure History of renal transplant Continue home medications Hyponatremia Hypokalemia Electrolytes monitor and replace accordingly Monitor renal parameters Electrolytes monitor and replace accordingly GI/DVT prophylaxis Advanced directive full code Discharge Plan: Home - Code Status/Comfort Care Code Status: Full Code Critical Care: No Time Spent Managing PTS Care (In Minutes): 35
[2023-10-24] MEDS: FAMOTIDINE 20 MG TAB PO SCH (08:33)
[2023-10-24] MEDS: predniSONE 5 MG TAB PO SCH (08:34)
[2023-10-24] MEDS: ENOXAPARIN 40 MG/0.4 ML SQ SCH (08:34)
[2023-10-24] MEDS: DOCUSATE CALCIUM 240 MG CAP PO SCH (08:34)
[2023-10-24] MEDS: ASPIRIN EC 81 MG TAB PO SCH (08:34)
[2023-10-24] MEDS: SODIUM BICARB 325 MG TAB PO SCH (08:34)
[2023-10-24] MEDS: HYDRALAZINE HCL 25 MG TABLET PO SCH (08:35)
[2023-10-24] MEDS: NIFEDIPINE XL 90 MG TABLET PO SCH (08:35)
[2023-10-24] MEDS: HOME MED 1 EA UNK (Leflunomide [Leflunomide] 20 MG Tablet) PO SCH (08:35)
[2023-10-24] MEDS: TACROLIMUS 0.5 MG PO SCH (08:36)
--- NOTE | 2023-10-24 10:42 | P.CNS ---
Date of Consult: 10/24/23 Chief Complaint: Chest Pain History of Present Illness: Patient with PMH of HTN, DM, Renal transplant, presented with chest pain that has been going on for 6 months but got worse yesterday, mid chest, pressure in nature, no radiation, associated with dizzy spells, worse by laying flat, no other cardiac symptoms. Allergies No Known Allergies Allergy (Verified 05/09/13 17:07) Home Medications: Carvedilol 25 mg PO Q12H 03/05/16 Famotidine 20 mg PO DAILY 03/05/16 Hydralazine [Apresoline] 25 mg PO BID 03/05/16 Insulin Detemir [Levemir Flextouch] 32 unit SQ DAILY 6PM 03/05/16 Insulin Detemir [Levemir Flextouch] 34 unit SQ [id number] 03/05/16 Leflunomide 20 mg PO DAILY 03/05/16 RX: Docusate Calcium 240 mg PO BID 03/05/16 RX: Insulin Aspart [Novolog*] 10 units SQ AC 03/05/16 RX: Nifedipine Xl [Procardia Xl*] 60 mg PO DAILY 03/05/16 Simvastatin 20 mg PO BEDTIME 03/05/16 Sodium Bicarbonate 1,300 mg PO TID 03/05/16 Tacrolimus 1 mg PO Q12H 03/05/16 predniSONE [Prednisone] 5 mg PO DAILY 03/05/16 RX: Gabapentin 600 mg 10/24/23 - Past Medical/Surgical History Diabetic: No -: htn -: renal faiure -: Diabetes -: -: Kidney transplant 2 years ago - Social History Smoking Status: Never smoker Alcohol use: No CD- Drugs: No Caffeine use: Yes Review of Systems 10-point ROS is otherwise unremarkable Physical Examination Temp Pulse Resp BP Pulse Ox 98.3 F 56 16 132/72 97 10/24/23 08:20 10/24/23 08:35 10/24/23 08:20 10/24/23 08:35 10/24/23 08:20 General: Alert, In no apparent distress HEENT: Atraumatic, PERRLA, Mucous membr. moist/pink, EOMI, Sclerae nonicteric Neck: Supple, 2+ carotid pulse no bruit, No LAD, Without JVD or thyroid abnormality Respiratory: Clear to auscultation bilaterally, Normal air movement Cardiovascular: Regular rate/rhythm, Normal S1 S2 Gastrointestinal: Normal bowel sounds, No tenderness Musculoskeletal: No tenderness Integumentary: No rashes Neurological: Normal gait, Normal speech, Normal tone, Normal affect Lymphatics: No axilla or inguinal lymphadenopathy Laboratory Data (last 24 hrs) 10/23/23 10/23/23 10/23/23 18:22 18:22 18:09 WBC 5.70 Cancelled Hgb 14.4 Cancelled Hct 41.9 Cancelled Plt Count 184 Cancelled Sodium 135 L Potassium 3.4 L BUN 21 H Creatinine 1.54 H Glucose 368 H 10/23/23 18:09 WBC Hgb Hct Plt Count Sodium Cancelled Potassium Cancelled BUN Cancelled Creatinine Cancelled Glucose Cancelled - Problems (1) HTN (hypertension) Current Visit: Yes Status: Acute Plan: Continue Coref 25 mg po BID Continue Nifedpine XL 60 mg daily Continue Hydralazine 25 mg po BID (2) Chest pain Current Visit: Yes Status: Acute Plan: Most likely secondary to pericarditis but with patient multiple risk factors will get nuclear stress test to rule out ischemia NPO after midnight for stress test in am Echo Start Colchicine 0.6 mg po BID (3 months total ONLY) (3) Diabetes Current Visit: Yes Status: Acute Plan: Tight glycemic control.
[2023-10-24] MEDS: COLCHICINE 0.6 MG TAB PO SCH (11:47)
[2023-10-24] MEDS: HYDRALAZINE HCL 20 MG/ML VIAL IV PRN (12:05)
--- NOTE | 2023-10-24 12:41 | ECHO ---
HEIGHT: 5 ft 4 in WEIGHT: 140 lb 0 oz DATE OF STUDY: 10/24/[address]: Benjamin Dyer DO 2-DIMENSIONAL: YES M.MODE: YES DOPPLER: YES COLOR FLOW: YES TDS: PORTABLE: YES DEFINITY: BUBBLE STUDY: DIAGNOSIS: CHEST PAIN CARDIAC HISTORY: CATHERIZATION: NO SURGERY: NO PROSTHETIC VALVE: NO PACEMAKER: NO MEASUREMENTS (cm) DIASTOLIC (NORMALS) SYSTOLIC (NORMALS) IVSd 1.0 (0.6-1.2) LA Diam 3.1 (1.9-4.0) LVEF 60-65% LVIDd 4.5 (3.5-5.7) LVIDs 3.4 (2.0-3.5) %FS 25% LVPWd 1.1 (0.6-1.2) Ao Diam 2.7 (2.0-3.7) 2 DIMENSIONAL ASSESSMENT: RIGHT ATRIUM: NORMAL LEFT ATRIUM: NORMAL RIGHT VENTRICLE: NORMAL LEFT VENTRICLE: NORMAL TRICUSPID VALVE: TRACE TRICUSPID REGURGITATION MITRAL VALVE: NORMAL PULMONIC VALVE: NORMAL AORTIC VALVE: NORMAL PERICARDIAL EFFUSION: NONE AORTIC ROOT: NORMAL LEFT VENTRICULAR WALL MOTION: NORMAL DOPPLER/COLOR FLOW: GRADE I DIASTOLIC DYSFUNCTION COMMENTS: 1. NORMAL LEFT VENTRICULAR SYSTOLIC FUNCTION, EJECTION FRACTION 60-65%, NORMAL WALL MOTION 2. GRADE I DIASTOLIC DYSFUNCTION 3. NORMAL FILLING PRESSURE TECHNOLOGIST: HAILEE YANG
[2023-10-24] MEDS: HYDROCODONE/APAP 5/325 MG TAB PO PRN (13:56)
[2023-10-24] MEDS: INSULIN REGULAR (HUMAN) 100 UNIT/ML ONE ×2 (15:57→21:33)
[2023-10-24] MEDS: ATORVASTATIN 10 MG TAB PO SCH (21:20)
[2023-10-24] MEDS: TACROLIMUS 1 MG PO SCH (21:23)
--- NOTE | 2023-10-25 07:30 | P.DS ---
Admission Date: 10/23/23 Discharge Date: 10/25/23 Disposition: ROUTINE DISCHARGE Discharge Condition: GOOD Reason for Admission: Chest Pain Brief History of Present Illness: 58 yo female with past medical history of hypertension, diabetes, renal failure, s/p renal transplant, CHF, hyperlipidemia came to ER with chest pain. Pain started 1 year ago and has been intermittent located in retrosternally radiating to the back worse with movements and exercise. Denies any diaphoresis. No nausea vomiting or diarrhea. Chest pain got worse over the last 2 days and has been progressively worsening and was brought to ER. Pain is located retrosternally 6 out of 10 in severity, sharp, denies any fever or chills. Denies any shortness of breath Patient was assessed in the ER and was admitted for further management of chest pain rule out ACS - Physical Exam General: Alert, In no apparent distress, Oriented x3, Cooperative HEENT: Atraumatic, Normocephalic Neck: Supple, 2+ carotid pulse no bruit Respiratory: Clear to auscultation bilaterally, Normal air movement Cardiovascular: No edema, Normal pulses, Regular rate/rhythm, Normal S1 S2 Capillary refill: <2 Seconds Gastrointestinal: Soft and benign, Non-distended, W/out hepatosplenomegaly, No tenderness Musculoskeletal: No clubbing, No swelling Integumentary: No rashes, No breakdown Neurological: Normal speech, Normal strength at 5/5 x4 extr, Normal tone, Cranial nerves 3-12 intact, Normal reflexes 2+ Lymphatics: No axilla or inguinal lymphadenopathy Hospital Course: 58 year-old patientwith past medical history of hypertension, diabetes, renal failure, s/p renal transplant, CHF, hyperlipidemia came to ER with chest pain. Was noted to have unstable angina, pericarditis, was evaluated by cardiology. Started on colchicine. Patient tolerating diet, stable for discharge to home with follow-up appointment with primary care physician. Follow-up with cardiology after discharge PROBLEM: Chest pain evaluated by cardiology Unstable angina, stress test ordered, Started on colchicine for pericarditis by Cardiology Diabetes with hyperglycemia resume appropriate home meds History of renal transplant resume appropriate home medications follow-up with nephrology after discharge Follow-up with cardiology after discharge Cardiology medication Continue Coref 25 mg po BID Continue Nifedpine XL 60 mg daily Continue Hydralazine 25 mg po BID Continue colchicine 0.6 p.o. twice daily for 3 months total- start date 10/24 23 Rad/Lab/Micro: Serial troponins are neck 10/22 Echocardiogram GRADE I DIASTOLIC DYSFUNCTION COMMENTS: 1. NORMAL LEFT VENTRICULAR SYSTOLIC FUNCTION, EJECTION FRACTION 60-65%, NORMAL WALL MOTION 2. GRADE I DIASTOLIC DYSFUNCTION 3. NORMAL FILLING PRESSURE 10/23 CT of the chest PE protocol IMPRESSION: No evidence of pulmonary thromboembolism. Mild subsegmental atelectasis is present in both posterior lung bases. Continue home medicines as previously prescribed GOAL: Clear understanding of disease process INSTRUCTIONS: Physician Discharge Instructions: -Follow-up with PCP in 1 to 2 weeks -Please call Dr. Villegas at [phone] if any questions regarding hospital stay -Please call nursing station at [phone] if any nursing or medication questions -Return to the emergency room if symptoms worsen Diet: ADA, low sodium Activity: Fall precautions Vital Signs/Physical Exam: Temp Pulse Resp BP Pulse Ox 98.8 F 87 16 182/79 H 97 10/25/23 04:00 10/25/23 04:00 10/25/23 04:00 10/25/23 04:00 10/25/23 04:00 Laboratory Data at Discharge: WBC 6.10 thou/uL (4.3-10.9) 10/24/23 02:24 Hgb 14.2 g/dL (12.0-15.0) 10/24/23 02:24 Hct 41.6 % (36.0-45.0) 10/24/23 02:24 Plt Count 181 thou/uL (152-406) 10/24/23 02:24 Sodium 140 mEq/L (136-145) D 10/24/23 02:24 Potassium 3.3 mEq/L (3.5-5.1) L 10/24/23 02:24 BUN 17 mg/dL (7-18) 10/24/23 02:24 Creatinine 1.32 mg/dL (0.55-1.02) H 10/24/23 02:24 Glucose 133 mg/dL (74-106) H 10/24/23 02:24 Magnesium 2.0 mg/dL (1.6-2.4) 10/24/23 02:24 Total Bilirubin 0.6 mg/dL (0.2-1.0) 10/24/23 02:24 AST < 10 U/L (15-37) L 10/24/23 02:24 ALT 17 U/L (13-56) 10/24/23 02:24 Alkaline Phosphatase 74 U/L (45-117) 10/24/23 02:24 Home Medications: Docusate Calcium 240 mg PO BID 03/05/16 Hydralazine [Apresoline] 25 mg PO BID 03/05/16 Insulin Aspart [Novolog*] 10 units SQ AC 03/05/16 Insulin Detemir [Levemir Flextouch] 32 unit SQ DAILY 6PM 03/05/16 Insulin Detemir [Levemir Flextouch] 34 unit SQ [id number] 03/05/16 Leflunomide 20 mg PO DAILY 03/05/16 Simvastatin 20 mg PO BEDTIME 03/05/16 Duloxetine HCl 20 mg PO DAILY 10/24/23 Gabapentin 600 mg PO BID 10/24/23 Insulin Glargine,Hum.rec.anlog [Basaglar Kwikpen U-100] 55 unit SQ DAILY 4 Pantoprazole [Protonix Tab*] 40 mg PO DAILY 10/24/23 Colchicine 0.6 mg PO BID #60 10/25/23 Leflunomide [Leflunomide] 20 mg PO DAILY 10/25/23 Na Bicarb Tab [Sodium Bicarb 325 MG Tab*] 1,300 mg PO TID tab 10/25/23 Ondansetron [Zofran*] 4 mg IV Q6HP PRN vial 10/25/23 Tacrolimus [Tacrolimus] 1 mg PO BID 10/25/23 predniSONE [Prednisone*] 5 mg PO DAILY tab 10/25/23 New Medications: Colchicine 0.6 mg PO BID #60 Diet: AHA Activity: Fall precautions Followup: Isa Ambrose MD [Primary Care Provider] - Time spent managing pt's care (in minutes): 55
[2023-10-25] MEDS: INSULIN REGULAR (HUMAN) 100 UNIT/ML SQ SCH (08:00)
[2023-10-25 08:02] LABS: Anion Gap 10.4 mEq/L (5.0-15.0); Magnesium 2.2 mg/dL (1.6-2.4); Potassium 3.4 mEq/L (3.5-5.1)
[2023-10-25] MEDS ORDERED: REGADENOSON 0.4 MG/5 ML SYR IV ONE (09:28)
[2023-10-25] MEDS ORDERED: ONDANSETRON 4 MG/2 ML VIAL ONE (09:43)
[2023-10-25] MEDS: POTASSIUM CL SA 10 MEQ TAB PO ONE (10:27)
--- NOTE | 2023-10-25 10:30 | P.PN ---
Subjective Date of Service: 10/25/23 Chief Complaint: Chest Pain Subjective: No new changes Review of Systems 10-point ROS is otherwise unremarkable Physical Examination - Vital Signs Temperature: 97.8 F Blood Pressure: 160/81 Pulse: 82 Respirations: 18 Pulse Ox (%): 98 - Physical Exam General: Alert, In no apparent distress HEENT: Atraumatic, PERRLA, EOMI Neck: Supple, JVD not distended Respiratory: Clear to auscultation bilaterally, Normal air movement Cardiovascular: Regular rate/rhythm, Normal S1 S2 Gastrointestinal: Normal bowel sounds, No tenderness Musculoskeletal: No tenderness Integumentary: No rashes Neurological: Normal speech, Normal tone, Normal affect Lymphatics: No axilla or inguinal lymphadenopathy - Studies Medications List Reviewed: Yes Assessment And Plan - Current Problems (Diagnosis) (1) HTN (hypertension) Current Visit: Yes Status: Acute Plan: Continue Coreg 25 mg po BID Continue Nifedpine XL 60 mg daily Continue Hydralazine 25 mg po BID (2) Chest pain Current Visit: Yes Status: Acute Plan: Most likely secondary to pericarditis but with patient multiple risk factors will get nuclear stress test to rule out ischemia Colchicine 0.6 mg po BID (3 months total ONLY) if stress test is normal then D/C home and follow up with cardiology. (3) Diabetes Current Visit: Yes Status: Acute Plan: Tight glycemic control.
--- NOTE | 2023-10-25 10:46 | RAD REPORT ---
EXAM DESCRIPTION: NM - Rest Stress Cardiac Imaging - 10/25/2023 10:08 am CLINICAL HISTORY: Chest pain. COMPARISON: None. TECHNIQUE: The patient was administered 10.4 mCi of Tc 99m Sestamibi prior to resting SPECT imaging of the heart. The patient was then administered 30.1 mCi of Tc 99m Sestamibi following exercise or ph armacologic stress. Multiplanar SPECT images were reviewed. FINDINGS: Stress images demonstrate normal radiotracer activity throughout the entire left ventricul ar myocardium The rest images demonstrate diminished radiotracer uptake apical left ventricular myocardium which ma y be physiologic thinning. The left ventricular ejection fraction equals 60% IMPRESSION: No evidence of stress-induced ischemia
[2023-10-25 11:14] VITALS: O2SAT 98
--- NOTE | 2023-10-25 11:47 | TREADPHA ---
DX: CHEST PAIN Date of Study: 10/25/2023 Ht: 5' 4 " Wt: 140 lb 0 oz Consulting Physician: CHARANJIT MEDICATIONS: TYLENOL, NORCO, ASPIRIN, LIPITOR, CORED, COLCRYS, SUFAX, LOVENOX, PEPCID, APRESOLINE, NOVOLIN-R, MORPHINE, SODIUM BICARB, PROCARDIA, ZOFRAN, DELTASOME HISTORY: 58 YEAR OLD FEMALE WITH COMPLAINTS OF CHEST PAIN. HISTORY OF HYPERTENSION AND DIABETES MELLITUS PHYSICIAL EXAMINATION: RESTING B.P.: 189/72 RESTING H.R.: 54 RESTING EKG: NORMAL SINUS RHYTHM PROTOCOL: PHARMACOLOGIC EXERCISE TIME: 3:30 B.P. AT [place] STRESS: 148/64 IMPRESSION: LEXISCAN STRESS TEST PERFORMED. CARDIOLITE INJECTED PER PROTOCOL - SEE NUCLEAR MEDICINE REPORT. NO VENTRICULAR TACHYCARDIA, SUPRAVENTRICULAR TACHYCARDIA OR ARRHYTHMIA NOTED. PATIENT COMPLIANTS OF FATIGUE AND DIZZINESS POST PROCEDURE. PATIENT COMPLAINTS OF NAUSEA, ZOFRAN 4 mg GIVEN INTRAVENOUS ORDERED. FATIGUE AND NAUSEA RESOLVED POST PROCEDURE.
[2023-10-25 12:07] VITALS: TEMP 97.7
[2023-10-25] MEDS ORDERED: METOPROLOL TARTRATE 5 MG/5 ML INJ IV STA (12:19)
[2023-10-25] MEDS: METOPROLOL TAR 50 MG TAB PO ONE (12:35)
[2023-10-25] MEDS: METOPROLOL TARTRATE 5 MG/5 ML INJ IV STA (12:38)
[2023-10-25 16:44] VITALS: BP 158/70
--- NOTE | 2023-10-26 14:46 | EKG ---
Test Date: 2023-10-23 Test Time: 18:27:18 Field Operations Technician: ALTA MEASUREMENT RESULTS: Intervals: Rate: 59 UT: 116 QRSD: 88 QT: 438 QTc: 433 [place]: P: 35 UT: 116 QRS: 5 T: 134 INTERPRETIVE STATEMENTS: Sinus bradycardia T wave abnormality, consider lateral ischemia Abnormal ECG Compared to ECG 08/01/2018 02:10:55 T-wave abnormality now present Possible ischemia now present Electronically Signed On 10-26-23 14:39:24 CDT by Yariel Villavicencio
== END 2023-10-25 17:01 | disposition home or self-care (01) ==
LOC: ER 17:46 → 2ND 21:39 → UNDOADMOB 22:56 → 2ND 22:56
PROVIDERS: ADMIT Family Medicine; ATTEND Hospitalist
DX: R07.9 Chest pain, unspecified (principal); I10 Essential (primary) hypertension; E11.65 Type 2 diabetes mellitus with hyperglycemia; E78.5 Hyperlipidemia, unspecified; E87.1 Hypo-osmolality and hyponatremia; Z94.0 Kidney transplant status
CPT/HCPCS: 36415; 71045; 71275; 78452; 80048; 80053; 82947; 83735; 84484; 85025; 93005; 93017; 93306; 96374; 96375; 99285; A9500; G0378; J0360; J1650; J2270; J2405; J2785; J7030; J7512

== ENCOUNTER 2024-03-25 21:57 | Emergency (ER) | payer OTHER ==
[2024-03-25] MEDS ORDERED: ONDANSETRON 4 MG/2 ML VIAL ONE (22:37)
[2024-03-25] MEDS ORDERED: MORPHINE 4 MG/ML SYR ONE (22:38)
[2024-03-25 23:01] LABS: Absolute Eosinophils 0.1 K/uL (0-0.5); Absolute Lymphocytes (CBC) 1.2 K/uL (0.7-4.9); Absolute Monocytes 0.5 K/uL (0.1-1.3); Absolute Neutrophil 8.7 K/uL (1.8-8.0); Basophils % 0.4 % (0-1.3); Eosinophils % 0.5 % (0-4.4); Hematocrit 41.8 % (36.0-45.0); Hemoglobin 14.4 g/dL (12.0-15.0); Lymphocytes % 11.1 % (15.3-44.8); MCH 28.9 pg (27.0-35.0); MCHC 34.5 g/dL (32.0-36.0); MCV 83.7 fL (80-100); MPV 10.5 fL (7.6-11.3); Monocytes % 5.2 % (3.3-12.3); Neutrophils % 82.8 % (41.7-73.7); Nucleated Red Blood Cells % 0.1 % (0-0); Platelets 223 thou/uL (152-406); Red Cell Distribution Width 13.1 % (12.1-15.2)
[2024-03-25 23:12] LABS: Anion Gap 15.3 mEq/L (5.0-15.0); Potassium 3.3 mEq/L (3.5-5.1); Troponin High Sensitivity 9.8 pg/mL (<58.9)
[2024-03-25] MEDS ORDERED: FENTANYL CITR 100 MCG/2 ML ONE (23:46)
--- NOTE | 2024-03-26 00:02 | EDPHYS ---
Physician Documentation [facility] Name: Amy Cortez Age: 58 yrs Sex: Female : 1965 Arrival Date: 03/25/2024 Time: 21:57 Bed 16 Private MD: ED Physician Blayne Boo HPI: 03/25 23:39 This 58 yrs old Female presents to ER via Wheelchair with complaints of Leg kb Pain, Chest Pain. 23:39 Pt is a 58 year old female who presents for bilateral foot pain that started this kb morning. Daughters states pt has chronic neuropathy and takes norco for the pain but today the pain has been worse and the norco isn't working. States when she has neuropathy this bad it causes her to have chest pain as well. No aggravating or alleviating factors. Historical: - Allergies: 22:14 NKDA; jb4 - PMHx: 22:14 Diabetes - NIDDM; neuropathy; Hypertension; Dialysis (Hypertension); jb4 - Immunization history:: Adult Immunizations up to date. - Infectious Disease History:: Denies. - Social history:: Smoking status: Patient denies any tobacco usage or history of. ROS: 23:38 Constitutional: As per HPI kb Exam: 23:38 Constitutional: This is a well developed, well nourished patient who is awake, alert, kb and in no acute distress. Head/Face: Normocephalic, atraumatic. ENT: Moist Mucous membranes Chest/axilla: Normal chest wall appearance and motion. Cardiovascular: Regular rate Respiratory: Hyperventilating. No resp distress. Talking in full sentences Abdomen/GI: Soft, non-tender. No distention Skin: Warm, dry with normal turgor. Normal color. MS/ Extremity: Pulses equal, no cyanosis. Neurovascular intact. Full, normal range of motion. Neuro: Awake and alert, GCS 15, oriented to person, place, time, and situation. Vital Signs: 22:13 BP 140 / 75; Pulse 96; Resp 20; Temp 97.9(TE); Pulse Ox 100% on R/A; Weight 56.7 kg; jb4 Height 5 ft. 4 in. (R); Pain 9/10; 23:42 BP 136 / 76; Pulse 90; Resp 22; Pulse Ox 100% on R/A; jb4 22:13 Body Mass Index 21.46 (56.70 kg, 162.56 cm) jb4 22:13 Pain Scale: Adult jb4 MDM: 22:00 Medical Screening Exam initiated kb 23:39 Data reviewed: vital signs, nurses notes. kb 23:58 Differential diagnosis: neuropathy, anxiety, acute mi, arrhythmia. Consideration of kb Admission/Observation Escalation of care including admission/observation considered. admission considered but pain controlled after fentanyl. Discussed case, labs and EKG with Dr Boo who recommends outpatient follow up with transplant team and pain management. . Management of patient was discussed with the following: Dr Boo. Historians other than the Patient: Daughter/Son: daughter. 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 03/25 22:12 Order name: Basic Metabolic Panel; Complete Time: 23:13 kb 03/25 22:12 Order name: CBC with Diff; Complete Time: 23:13 kb 03/25 22:12 Order name: NT PRO-BNP; Complete Time: 23:13 kb 03/25 22:12 Order name: Troponin HS; Complete Time: 23:13 kb 03/25 22:12 Order name: XRAY Chest (1 view) kb 03/25 22:12 Order name: EKG; Complete Time: 22:13 kb 03/25 22:12 Order name: Cardiac monitoring; Complete Time: 22:25 kb 03/25 22:12 Order name: EKG - Nurse/Tech; Complete Time: 22:25 kb 03/25 22:12 Order name: IV Saline Lock; Complete Time: 22:46 kb 03/25 22:12 Order name: Labs collected and sent; Complete Time: 22:46 kb 03/25 22:12 Order name: O2 Per Protocol; Complete Time: 22:15 kb 03/25 22:12 Order name: O2 Sat Monitoring; Complete Time: 22:15 kb Administered Medications: 22:45 Drug: Ondansetron IVP 4 mg IVP once; over 2 minutes Route: IVP; Site: right antecubital;jb4 23:00 Follow up: Response: No adverse reaction; Marked relief of symptoms jb4 22:46 Drug: morphine IVP or IV 4 mg IVP once over 4 mins Route: IVP; Infused Over: 4 mins; jb4 Site: right antecubital; 23:15 Follow up: Response: No adverse reaction; Marked relief of symptoms; Pain is decreased; jb4 RASS: Alert and Calm (0) 23:49 Drug: fentaNYL (PF) IVP 25 mcg IVP once Route: IVP; Site: right antecubital; jb4 03/26 00:21 Follow up: Response: No adverse reaction; Marked relief of symptoms; Pain is decreased; jb4 RASS: Alert and Calm (0) Disposition: 03:54 Co-signature as Attending Physician, Blayne Boo MD I agree with the assessment sp4 and plan of care. I reviewed the patient's care provided by the Advanced Practice Provider and agree with the diagnosis and treatment plan. Disposition Summary: 03/26/24 00:02 Discharge Ordered Notes: Location: Home kb Condition: Stable kb Diagnosis - Neuropathy kb Followup: kb - With: Emergency Department - When: As needed - Reason: Worsening of condition Followup: kb - With: Private Physician - When: 2 - 3 days - Reason: Recheck today's complaints, Continuance of care, Re-evaluation by your physician Discharge Instructions: - Discharge Summary Sheet kb - Neuropathic Pain kb Forms: - Medication Reconciliation Form kb - Antibiotic Education kb - Prescription Opioid Use kb - Patient Portal Instructions kb - Leadership Thank You Letter kb Signatures: Dispatcher [employer] EDElizabeth Shepherd, RICARDA-Nadiya CHOWDARY-Sriram Elder RN RN anibal4 Blayne Boo MD MD sp4 Corrections: (The following items were deleted from the chart) 00:00 03/25 23:38 Constitutional: This is a well developed, well nourished patient who is kb awake, alert, and in no acute distress. Head/Face: Normocephalic, atraumatic. ENT: Moist Mucous membranes Chest/axilla: Normal chest wall appearance and motion. Cardiovascular: Regular rate Respiratory: Respirations even and unlabored. No increased work of breathing. Talking in full sentences Abdomen/GI: Soft, non-tender. No distention Skin: Warm, dry with normal turgor. Normal color. MS/ Extremity: Pulses equal, no cyanosis. Neurovascular intact. Full, normal range of motion. Neuro: Awake and alert, GCS 15, oriented to person, place, time, and situation. kb
--- NOTE | 2024-03-26 00:02 | ER ---
Nurse's Notes [facility] Name: Amy Cortez Age: 58 yrs Sex: Female : 1965 Arrival Date: 03/25/2024 Time: 21:57 Bed 16 Private MD: Diagnosis: Neuropathy Presentation: 03/25 22:13 Chief complaint: Patient states: She has been having neuropathy pain and chest pain jb4 since 11 am this morning. Coronavirus screen: At this time, the client does not indicate any symptoms associated with coronavirus-19. Ebola Screen: No symptoms or risks identified at this time. Initial Sepsis Screen: Does the patient meet any 2 criteria? No. Patient's initial sepsis screen is negative. Does the patient have a suspected source of infection? No. Patient's initial sepsis screen is negative. Risk Assessment: Do you want to hurt yourself or someone else? Patient reports no desire to harm self or others. Onset of symptoms was March 25, 2024. Transition of care: patient was not received from another setting of care. 22:13 Method Of Arrival: Wheelchair jb4 22:13 Acuity: LOUANN 2 jb4 Historical: - Allergies: 22:14 NKDA; jb4 - PMHx: 22:14 Diabetes - NIDDM; neuropathy; Hypertension; Dialysis (Hypertension); jb4 - Immunization history:: Adult Immunizations up to date. - Infectious Disease History:: Denies. - Social history:: Smoking status: Patient denies any tobacco usage or history of. Screenin:45 [facility] ED Fall Risk Assessment (Adult) History of falling in the last 3 months, jb4 including since admission No falls in past 3 months (0 pts) Confusion or Disorientation No (0 pts) Intoxicated or Sedated No (0 pts) Impaired Gait No (0 pts) Mobility Assist Device Used No (0 pt) Altered Elimination No (0 pt) Score/Fall Risk Level 0 - 2 = Low Risk Oriented to surroundings, Maintained a safe environment. Abuse screen: Denies threats or abuse. Nutritional screening: No deficits noted. Tuberculosis screening: No symptoms or risk factors identified. Assessment: 22:30 General: Appears in no apparent distress. uncomfortable, Behavior is calm, cooperative, jb4 appropriate for age. Pain: Complains of pain in chest, right foot and left foot Pain does not radiate. Pain currently is 10 out of 10 on a pain scale. Quality of pain is described as burning, Pain began 11am. Neuro: Level of Consciousness is awake, alert, obeys commands, Oriented to person, place, time, situation. Cardiovascular: Patient's skin is warm and dry. Respiratory: Airway is patent Respiratory effort is even, unlabored, Respiratory pattern is regular, symmetrical. GI: No signs and/or symptoms were reported involving the gastrointestinal system. : No signs and/or symptoms were reported regarding the genitourinary system. EENT: No signs and/or symptoms were reported regarding the EENT system. Derm: Skin is intact, Skin is pink, warm \T\ dry. Musculoskeletal: Circulation, motion, and sensation intact. Range of motion: intact in all extremities. 03/26 00:00 Reassessment: Patient appears in no apparent distress at this time. Patient and/or jb4 family updated on plan of care and expected duration. Pain level reassessed. Patient is alert, oriented x 3, equal unlabored respirations, skin warm/dry/pink. Patient states feeling better. Vital Signs: 03/25 22:13 BP 140 / 75; Pulse 96; Resp 20; Temp 97.9(TE); Pulse Ox 100% on R/A; Weight 56.7 kg; jb4 Height 5 ft. 4 in. (R); Pain 9/10; 23:42 BP 136 / 76; Pulse 90; Resp 22; Pulse Ox 100% on R/A; jb4 22:13 Body Mass Index 21.46 (56.70 kg, 162.56 cm) jb4 22:13 Pain Scale: Adult [facility] ED Course: 21:59 Patient arrived in ED. jj6 22:00 Elizabeth Menchaca FNP-C is [facility]. kb 22:00 Blayne Boo MD is Attending Physician. kb 22:14 Triage completed. jb4 22:14 Arm band placed on right wrist. jb4 22:45 Patient has correct armband on for positive identification. Bed in low position. Call jb4 light in reach. Side rails up X 1. Provided Education on: plan of care. Client placed on continuous cardiac and pulse oximetry monitoring. NIBP monitoring applied. clinical research monitor on. Pulse ox on. 22:45 No provider procedures requiring assistance completed. Inserted saline lock: 20 gauge jb4 in right antecubital area, using aseptic technique. Blood collected. Patient maintains SpO2 saturation greater than 95% on room air. 22:53 XRAY Chest (1 view) In Process Unspecified. EDMS 23:41 Sriram Gavin, RN is Primary Nurse. jb4 03/26 00:21 IV discontinued, intact, bleeding controlled, No redness/swelling at site. Pressure jb4 dressing applied. Administered Medications: 03/25 22:45 Drug: Ondansetron IVP 4 mg IVP once; over 2 minutes Route: IVP; Site: right antecubital;jb4 23:00 Follow up: Response: No adverse reaction; Marked relief of symptoms jb4 22:46 Drug: morphine IVP or IV 4 mg IVP once over 4 mins Route: IVP; Infused Over: 4 mins; jb4 Site: right antecubital; 23:15 Follow up: Response: No adverse reaction; Marked relief of symptoms; Pain is decreased; jb4 RASS: Alert and Calm (0) 23:49 Drug: fentaNYL (PF) IVP 25 mcg IVP once Route: IVP; Site: right antecubital; jb4 03/26 00:21 Follow up: Response: No adverse reaction; Marked relief of symptoms; Pain is decreased; jb4 RASS: Alert and Calm (0) Medication: 00:00 VIS not applicable for this client. jb4 Outcome: 00:02 Discharge ordered by . ganesh 00:21 Discharged to home via wheelchair, with family, jb4 00:21 Condition: stable 00:21 Discharge instructions given to patient, family, Instructed on discharge instructions, follow up and referral plans. Demonstrated understanding of instructions, follow-up care, 00:22 Patient left the ED. jb4 Signatures: Dispatcher [employer] EDCA Elizabeth Menchaca, JUSTINEC INSPECTOR TOOL-Sriram Elder, RN RN jb4 Peg Guy jj6
--- NOTE | 2024-03-26 06:09 | RAD REPORT ---
EXAM: Chest Single View CLINICAL INDICATION: 58-year-old female with chest pain. TECHNIQUE: Single view, AP portable chest was obtained. COMPARISON: None. FINDINGS: Unremarkable cardiac and mediastinal silhouette. Heart size is normal. Lungs are clear without focal opacity, pneumothorax or pleural effusions. The visualized bones are within normal limits. IMPRESSION: No acute pulmonary abnormalities. Electronically signed by: Aurea Brewer MD 03/25/2024 11:35 PM CDT RP Due to temporary technical issues with the PACS/[employer] reporting system, reports are being [place] by the in-house radiologist without review as a courtesy to ensure prompt reporting the interpreting radiologist is fully responsible for the content of the report. Transcribed Date/Time: 03/26/2024 6:09 AM
[2024-03-26 07:18] VITALS: TEMP 97.9; O2SAT 100
[2024-03-26 07:25] VITALS: BP 136/76
--- NOTE | 2024-03-27 11:54 | EKG ---
Test Date: 2024-03-25 Test Time: 22:22:35 Deli Worker: EVA MEASUREMENT RESULTS: Intervals: Rate: 89 MI: 116 QRSD: 80 QT: 422 QTc: 513 [place]: P: 64 MI: 116 QRS: 53 T: 93 INTERPRETIVE STATEMENTS: Normal sinus rhythm Nonspecific ST and T wave abnormality Prolonged QT Abnormal ECG Compared to ECG 10/23/2023 18:27:18 ST (T wave) deviation now present Prolonged QT interval now present Sinus bradycardia no longer present T-wave abnormality no longer present Possible ischemia no longer present Electronically Signed On 03-27-24 11:51:37 CDT by Tim Lynne
== END 2024-03-26 00:22 | disposition home or self-care (01) ==
LOC: ER 21:57
DX: E11.40 Type 2 diabetes mellitus with diabetic neuropathy, unspecified (principal); M79.671 Pain in right foot; R07.9 Chest pain, unspecified; I10 Essential (primary) hypertension; Z99.2 Dependence on renal dialysis
CPT/HCPCS: 93005; 85025; 80048; 36415; 84484; 83880; 71045; J3010; J2405; 96374; 96375; 99285